=== PATIENT | female | born 1985 | race Caucasian/White ===

== ENCOUNTER 2018-04-12 17:34 | Emergency (ER) | payer OTHER ==
[2018-04-12] MEDS ORDERED: HYDROCODONE/APAP 10/325 TAB ONE (18:43)
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
[2018-04-12 19:45] VITALS: BP 121/84; TEMP 98.5; O2SAT 100
== END 2018-04-12 19:40 | disposition home or self-care (01) ==
LOC: ER 17:34
DX: S60.221A Contusion of right hand, initial encounter (principal); S60.222A Contusion of left hand, initial encounter; V43.52XA Car driver injured in collision with other type car in traffic accident, initial encounter; Y92.410 Unspecified street and highway as the place of occurrence of the external cause; F32.9 Major depressive disorder, single episode, unspecified
CPT/HCPCS: 99285

== ENCOUNTER 2019-01-21 14:55 | Emergency (ER) | payer OTHER ==
[2019-01-21 16:11] LABS: Absolute Lymphocytes (CBC) 2.8 K/uL (0.7-4.9); Absolute Monocytes 0.7 K/uL (0.1-1.3); Absolute Neutrophil 6.7 K/uL (1.8-8.0); Hematocrit 39.3 % (36.0-45.0); MPV 7.8 fL (7.6-11.3); Monocytes % 6.6 % (3.3-12.3); RBC Red Blood Cell Count 4.36 M/uL (3.86-4.86)
[2019-01-21] MEDS ORDERED: MORPHINE 4 MG/ML SYR ONE ×2 (16:14→19:53)
[2019-01-21] MEDS ORDERED: NA CHLORIDE 0.9% 1,000 ML ONE (16:15)
[2019-01-21] MEDS ORDERED: ONDANSETRON 4 MG/2 ML VIAL ONE ×3 (16:15→20:32)
[2019-01-21 16:28] LABS: Albumin 4.2 g/dL (3.4-5.0); Bilirubin Direct 0.1 mg/dL (0-0.2); Bilirubin Total 0.4 mg/dL (0.2-1.0); Potassium 3.7 mmol/L (3.5-5.1); Protein, Total 7.4 g/dL (6.4-8.2)
[2019-01-21 16:29] LABS: Urine Amorphous Sediment 1+ /HPF (NONE SEEN); Urine Bacteria >50 /HPF (<20); Urine Culture Reflex Order ND; Urine Mucus 3+ /HPF (NONE SEEN); Urine RBC <5 /HPF (NONE SEEN)
--- NOTE | 2019-01-21 18:35 | RAD REPORT ---
EXAM DESCRIPTION: CTAbdomen Pelvis W Contrast - 01/21/2019 6:28 pm CLINICAL HISTORY: Abdominal pain. right lower abdomial pain COMPARISON: Abdomen Pelvis W Contrast dated 05/28/2016 TECHNIQUE: Biphasic CT imaging of the abdomen and pelvis was performed with 100 ml non-ionic IV cont rast. All CT scans are performed using dose optimization technique as appropriate and may include automated exposure control or mA/KV adjustment according to patient size. FINDINGS: The lung bases are clear. The liver, spleen, pancreas, adrenal glands and kidneys are within normal limits. No bowel obstruction, free air, free fluid or abscess. The appendix is normal. No evidence of signi ficant lymphadenopathy. No suspicious bony findings. IMPRESSION: No acute intra-abdominal or pelvic finding.
--- NOTE | 2019-01-21 19:58 | RAD REPORT ---
EXAM DESCRIPTION: US - Transvaginal Study Probe - 01/21/2019 7:28 pm CLINICAL HISTORY: right lower abdominal pain Pelvic pain. COMPARISON: No comparisons FINDINGS: The uterus is normal in size, shape and echotexture. The uterus measures 7.6 x 4.8 x 4.5 c m. The endometrial stripe measures 10 mm, normal. Both ovaries are normal in size, shape and echotexture. The right ovary measures 2.5 x 1.9 x 1 7 cm. The left ovary measures 2.6 x 2.2 x 2.0 cm. No ovarian or parovarian lesions. No adnexal masses. Normal Doppler blood flow was demonstrated to both ovaries. No significant pelvic ascites. IMPRESSION: Unremarkable study.
--- NOTE | 2019-01-21 20:08 | ER ---
Nurse's Notes [facility] Name: Kelsi Fortune Age: 33 yrs Sex: Female : 1985 Arrival Date: 01/21/2019 Time: 14:58 Bed 19 Private MD: Diagnosis: Lower abdominal pain, unspecified;Urinary tract infection, site not specified Presentation: 01/21 15:14 Presenting complaint: Patient states: RLQ pain, subjective fever, n/v/d x 1 day. sv Transition of care: patient was not received from another setting of care. Onset of symptoms was January 20, 2019. Care prior to arrival: None. 15:14 Method Of Arrival: Ambulatory sv 15:14 Acuity: CAMERON 3 sv 17:55 Risk Assessment: Do you want to hurt yourself or someone else? Patient reports no ph desire to harm self or others. Initial Sepsis Screen: Does the patient meet any 2 criteria? No. Patient's initial sepsis screen is negative. Does the patient have a suspected source of infection? No. Patient's initial sepsis screen is negative. Triage Assessment: 15:16 General: Appears in no apparent distress. uncomfortable, Behavior is calm, cooperative, sv appropriate for age. Pain: Complains of pain in right lower quadrant Pain currently is 10 out of 10 on a pain scale. Neuro: Level of Consciousness is awake, alert, obeys commands, Oriented to person, place, time, situation, Gait is steady. Respiratory: Respiratory effort is even, unlabored, Respiratory pattern is regular, symmetrical. GI: Reports lower abdominal pain, diarrhea, nausea, vomiting. Historical: - Allergies: 15:15 NKA; sv - PMHx: 15:15 None; sv - PSHx: 15:15 None; sv - Immunization history:: Adult Immunizations unknown. - Social history:: Smoking status: Patient/guardian denies using tobacco. - Ebola Screening: : No symptoms or risks identified at this time. Screenin:55 Abuse screen: Denies threats or abuse. Denies injuries from another. Nutritional ph screening: No deficits noted. Tuberculosis screening: No symptoms or risk factors identified. Fall Risk None identified. Assessment: 15:45 General: Appears in no apparent distress. uncomfortable, slender, well groomed, ph Behavior is calm, cooperative, appropriate for age, Reports fever for 1-2 days. Pain: Complains of pain in right lower quadrant. Neuro: Level of Consciousness is awake, alert, obeys commands, Oriented to person, place, time, situation. Cardiovascular: Capillary refill < 3 seconds in bilateral fingers Patient's skin is warm and dry. Respiratory: Airway is patent Respiratory effort is even, unlabored. GI: Abdomen is flat, non-distended, Bowel sounds present X 4 quads. Abd is soft X 4 quads Abdomen is tender to palpation in right lower quadrant Reports lower abdominal pain, diarrhea, nausea, vomiting. : Denies burning with urination, urinary frequency. Derm: Skin is intact, is fragile, Skin is pink, warm \T\ dry. Musculoskeletal: Circulation, motion, and sensation intact. Range of motion: intact in all extremities. 17:00 Reassessment: Patient appears in no apparent distress at this time. Patient and/or ph family updated on plan of care and expected duration. Pain level reassessed. Patient is alert, oriented x 3, equal unlabored respirations, skin warm/dry/pink. Pt reports that pain has improved to 6/10, awaiting CT scan, SO at bedside. 18:00 Reassessment: Patient appears in no apparent distress at this time. No changes from ph previously documented assessment. Patient and/or family updated on plan of care and expected duration. Pain level reassessed. Patient is alert, oriented x 3, equal unlabored respirations, skin warm/dry/pink. 19:00 Reassessment: Patient appears in no apparent distress at this time. Patient and/or jb4 family updated on plan of care and expected duration. Pain level reassessed. Patient is alert, oriented x 3, equal unlabored respirations, skin warm/dry/pink. 19:13 Reassessment: Pt to ultrasound. jb4 20:00 Reassessment: Patient appears in no apparent distress at this time. Patient and/or jb4 family updated on plan of care and expected duration. Pain level reassessed. Patient is alert, oriented x 3, equal unlabored respirations, skin warm/dry/pink. Vital Signs: 15:15 BP 121 / 82; Pulse 66; Resp 18; Temp 98.5; Pulse Ox 100% ; Weight 56.7 kg; Height 5 ft. sv 3 in. (160.02 cm); Pain 8/10; 16:30 BP 124 / 78; Pulse 78; Resp 18; Pulse Ox 99% on R/A; ph 17:54 BP 102 / 78; Pulse 84; Resp 18; Pulse Ox 98% on R/A; ph 19:00 BP 108 / 83; Pulse 59; Resp 16; Pulse Ox 97% on R/A; jb4 20:00 BP 106 / 78; Pulse 64; Resp 16; Pulse Ox 97% on R/A; jb4 15:15 Body Mass Index 22.14 (56.70 kg, 160.02 cm) sv ED Course: 14:58 Patient arrived in ED. mr 15:14 Triage completed. sv 15:16 Arm band placed on. sv 15:19 Keila Simmons, RN is Primary Nurse. ph 15:41 Isaias Crisostomo PA is PHCP. [facility] 15:41 Kishan Mack MD is Attending Physician. [facility] 15:58 Initial lab(s) drawn, by tx, sent to lab. Inserted saline lock: 20 gauge in right dh3 antecubital area, using aseptic technique. Blood collected. 17:56 Patient has correct armband on for positive identification. Placed in gown. Bed in low ph position. Call light in reach. Side rails up X 1. Pulse ox on. NIBP on. Door closed. Noise minimized. Warm blanket given. 18:[address] via wheelchair. nj 18:28 CT completed. Patient tolerated procedure well. Patient moved back from HI. nj 18:28 CT Abd/Pelvis - W/Contrast In Process Unspecified. EDMS 19:29 Transvaginal Study Probe In Process Unspecified. EDMS 20:34 No provider procedures requiring assistance completed. IV discontinued, intact, jb4 bleeding controlled. Administered Medications: 16:05 Drug: morphine 4 mg Route: IVP; Site: right antecubital; ph 18:58 Follow up: Response: No adverse reaction; Pain is decreased ph 16:05 Drug: NS 0.9% 1000 ml Route: IV; Rate: 1 bolus; Site: right antecubital; ph 18:59 Follow up: Response: No adverse reaction; IV Status: Completed infusion ph 16:39 Drug: Zofran 4 mg Route: IVP; Site: right antecubital; ph 18:59 Follow up: Response: No adverse reaction; Nausea is decreased ph 19:36 Drug: Zofran 4 mg Route: IVP; Site: right antecubital; jb4 20:30 Follow up: Response: No adverse reaction; Nausea is decreased jb4 19:38 Drug: morphine 4 mg Route: IVP; Site: right antecubital; jb4 20:31 Follow up: Response: No adverse reaction; Pain is decreased jb4 Outcome: 20:08 Discharge ordered by MD. zheng 20:34 Discharged to home ambulatory, with significant other. jb4 20:34 Condition: stable 20:34 Discharge instructions given to patient, Instructed on discharge instructions, follow up and referral plans. medication usage, Demonstrated understanding of instructions, follow-up care, medications, Prescriptions given X 3. 20:34 Patient left the ED. jb4 Signatures: Dispatcher [employer] EDLeonora Napoles, RN RN Isaias Medellin PA PA jmm Rivera, Jayshree mr SimmonsKeila RN RN ph Bryson, James, RN RN jb Panda Cho Deanna [facility] Corrections: (The following items were deleted from the chart) 15:17 15:15 Resp 18bpm; Pulse Ox 100%; Temp 98.5F; 56.7 kg; Height 5 ft. 3 in.; BMI: 22.1; sv Pain 8/10; sv
--- NOTE | 2019-01-21 20:08 | EDPHYS ---
Physician Documentation [facility] Name: Kelsi Fortune Age: 33 yrs Sex: Female : 1985 Arrival Date: 01/21/2019 Time: 14:58 Bed 19 Private MD: ED Physician Kishan Mack HPI: 01/21 15:46 This 33 yrs old Female presents to ER via Ambulatory with complaints of jmm Abdominal Pain, Nausea. 15:46 The patient presents with abdominal pain in the lower abdomen, right lower quadrant. jmm Onset: The symptoms/episode began/occurred gradually, 2 day(s) ago. The symptoms do not radiate. Associated signs and symptoms: Pertinent positives: nausea and vomiting, Pertinent negatives: diarrhea. This is a 33 year old female with no chronic medical conditions that presents to the ED with complaints of right lower abdominal pain beginning 2 days ago worsening last night with multiple episodes of vomiting. . Historical: - Allergies: 15:15 NKA; sv - PMHx: 15:15 None; sv - PSHx: 15:15 None; sv - Immunization history:: Adult Immunizations unknown. - Social history:: Smoking status: Patient/guardian denies using tobacco. - Ebola Screening: : No symptoms or risks identified at this time. ROS: 15:46 Cardiovascular: Negative for chest pain, palpitations, and edema, Respiratory: Negative jmm for shortness of breath, cough, wheezing, and pleuritic chest pain. 15:46 Constitutional: Positive for body aches, fever. 15:46 Abdomen/GI: Positive for abdominal pain, nausea and vomiting, Negative for diarrhea. 15:46 All other systems are negative. Exam: 15:46 Constitutional: This is a well developed, well nourished patient who is awake, alert, jmm and in no acute distress. Head/Face: atraumatic. Eyes: EOMI, no conjunctival erythema appreciated ENT: Moist Mucus Membranes Neck: Trachea midline, Supple Chest/axilla: Normal chest wall appearance and motion. Cardiovascular: Regular rate and rhythm. No edema appreciated Respiratory: Normal respirations, no respiratory distress appreciated 15:46 Back: Normal ROM Skin: General appearance color normal MS/ Extremity: Moves all extremities, no obvious deformities appreciated, no edema noted to the lower extremities Neuro: Awake and alert, normal gait Psych: Behavior is normal, Mood is normal, Patient is cooperative and pleasant 15:46 Abdomen/GI: Inspection: abdomen appears normal, Bowel sounds: normal, Palpation: soft, moderate abdominal tenderness, in the right lower quadrant. Vital Signs: 15:15 BP 121 / 82; Pulse 66; Resp 18; Temp 98.5; Pulse Ox 100% ; Weight 56.7 kg; Height 5 ft. sv 3 in. (160.02 cm); Pain 8/10; 16:30 BP 124 / 78; Pulse 78; Resp 18; Pulse Ox 99% on R/A; ph 17:54 BP 102 / 78; Pulse 84; Resp 18; Pulse Ox 98% on R/A; ph 19:00 BP 108 / 83; Pulse 59; Resp 16; Pulse Ox 97% on R/A; jb4 20:00 BP 106 / 78; Pulse 64; Resp 16; Pulse Ox 97% on R/A; jb4 15:15 Body Mass Index 22.14 (56.70 kg, 160.02 cm) sv MDM: 15:46 Patient medically screened. [facility] 20:07 Data reviewed: vital signs, nurses notes. Counseling: I had a detailed discussion with norm the patient and/or guardian regarding: the historical points, exam findings, and any diagnostic results supporting the discharge/admit diagnosis, lab results, radiology results, the need for outpatient follow up, to return to the emergency department if symptoms worsen or persist or if there are any questions or concerns that arise at home. ED course: Patient's symptoms alleviated in the ED. Patient will be prescribed antibiotics for UTD. patient is given early appendicitis return precautions. patient understood and agrees with the plan of care. . 01/21 15:30 Order name: Urine Microscopic Only; Complete Time: 16:31 ph 01/21 15:47 Order name: Basic Metabolic Panel; Complete Time: 16:31 [facility] 01/21 15:47 Order name: CBC with Diff; Complete Time: 16:31 [facility] 01/21 15:47 Order name: Creatinine for Radiology; Complete Time: 16:31 [facility] 01/21 15:47 Order name: Hepatic Function; Complete Time: 16:31 [facility] 01/21 15:47 Order name: Lipase; Complete Time: 16:31 [facility] 01/21 15:47 Order name: CT Abd/Pelvis - W/Contrast; Complete Time: 18:46 [facility] 01/21 15:56 Order name: Urine Dipstick--Ancillary (enter results); Complete Time: 20:22 bd 01/21 15:56 Order name: Urine --Ancillary (enter results); Complete Time: 20:22 bd 01/21 18:56 Order name: Transvaginal Study Probe; Complete Time: 20:01 EDMS 01/21 15:30 Order name: Urine Test (obtain specimen); Complete Time: 15:30 ph 01/21 15:30 Order name: Urine Dipstick-Ancillary (obtain specimen); Complete Time: 15:30 ph 01/21 15:47 Order name: IV Saline Lock; Complete Time: 16:02 [facility] 01/21 15:47 Order name: Labs collected and sent; Complete Time: 16:02 [facility] Administered Medications: 16:05 Drug: morphine 4 mg Route: IVP; Site: right antecubital; ph 18:58 Follow up: Response: No adverse reaction; Pain is decreased ph 16:05 Drug: NS 0.9% 1000 ml Route: IV; Rate: 1 bolus; Site: right antecubital; ph 18:59 Follow up: Response: No adverse reaction; IV Status: Completed infusion ph 16:39 Drug: Zofran 4 mg Route: IVP; Site: right antecubital; ph 18:59 Follow up: Response: No adverse reaction; Nausea is decreased ph 19:36 Drug: Zofran 4 mg Route: IVP; Site: right antecubital; jb4 20:30 Follow up: Response: No adverse reaction; Nausea is decreased jb4 19:38 Drug: morphine 4 mg Route: IVP; Site: right antecubital; jb4 20:31 Follow up: Response: No adverse reaction; Pain is decreased jb4 Disposition: 01/21/19 20:08 Discharged to Home. Impression: Lower abdominal pain, unspecified, Urinary tract infection, site not specified. - Condition is Stable. - Discharge Instructions: Abdominal Pain, Adult, Urinary Tract Infection, Adult. - Prescriptions for Bactrim DS 800- 160 mg Oral Tablet - take 1 tablet by ORAL route every 12 hours for 10 days; 20 tablet. Ultracet 37.5- 325 mg Oral Tablet - take 1 tablet by ORAL route every 6 hours - for up to 5 days; do not exceed 8 tablets per day.; 12 tablet. Zofran 4 mg Oral Tablet - take 1 tablet by ORAL route every 12 hours As needed; 20 tablet. - Medication Reconciliation Form, Thank You Letter, Antibiotic Education, Prescription Opioid Use form. - Follow up: Private Physician; When: 2 - 3 days; Reason: Recheck today's complaints, Continuance of care, Re-evaluation by your physician. Signatures: Dispatcher [employer] [facility] Leonora Mullins, RN RN Isaias Medellin PA PA jmm Hall, Patricia, RN RN Saman Amaya RN RN jb4 Corrections: (The following items were deleted from the chart) 18:56 18:51 Pelvis Complete+US.RAD.BRZ ordered. [facility] 20:34 20:08 01/21/2019 20:08 Discharged to Home. Impression: Lower abdominal pain, jb4 unspecified; Urinary tract infection, site not specified. Condition is Stable. Forms are Medication Reconciliation Form, Thank You Letter, Antibiotic Education, Prescription Opioid Use. Follow up: Private Physician; When: 2 - 3 days; Reason: Recheck today's complaints, Continuance of care, Re-evaluation by your physician. norm
[2019-01-21 20:17] LABS: Urine Blood 1+ (NEG); Urine Glucose NEGATIVE (NEG); Urine Protein TRACE (NEG); Urine Specific Gravity >1.030 (1.005-1.030); Urine pH 5.5 (5.0-7.0)
[2019-01-21] MEDS ORDERED: DICYCLOMINE HCL 10 MG CAP ONE (20:32)
[2019-01-21 20:58] VITALS: TEMP 98.5
[2019-01-21 21:01] VITALS: O2SAT 97
[2019-01-21 21:03] VITALS: BP 106/78
== END 2019-01-21 20:34 | disposition home or self-care (01) ==
LOC: ER 14:55
DX: N39.0 Urinary tract infection, site not specified (principal)
CPT/HCPCS: 36415; 74177; 76830; 80048; 80076; 81003; 81015; 81025; 83690; 85025; 96361; 96374; 96375; 99284; J2405; J7030; Q9967

== ENCOUNTER 2019-06-02 19:10 | Emergency (ER) | payer OTHER ==
--- OUTSIDE RECORDS SUMMARY | 2019-06-02 19:12 | XMS REPORT ---
:1985 [facility] Address [address] [place] [id number] Care Team Providers Name Role Phone Unavailable Unavailable Unavailable Problems This patient has no known problems. Allergies, Adverse Reactions, Alerts This patient has no known allergies or adverse reactions. Medications This patient has no known medications.
--- OUTSIDE RECORDS SUMMARY | 2019-06-02 19:12 | XMS REPORT ---
:1985 Author Organization [employer] Care Team Providers Name Role Phone Smart, [facility] Provider Role Unavailable Allergies, Adverse Reactions, Alerts Substance Reaction Event Type Zoloft Info Not Available Drug Allergy Problems Problem Type Condition Code Onset Dates Condition Status Assessment Constipation, unspecified K59.00 Active constipation type Assessment GERD without esophagitis K21.9 Active Problem GERD without esophagitis K21.9 Active Problem Constipation, unspecified K59.00 Active constipation type Problem Tobacco use disorder F17.200 Active Assessment Adult BMI 25.0-25.9 kg/sq m Z68.25 Active Assessment Tobacco use disorder F17.200 Active Assessment Well adult on routine health check Z00.00 Active Medications Medication Code System Code Instructions Start Date End Date Status Dosage Omeprazole [facility] [address] 20 MG Orally Active 1 tablet -01 Twice a day Results No Known Results Summary Purpose [employer] Submission
[2019-06-02 19:57] LABS: Absolute Lymphocytes (CBC) 3.3 K/uL (0.7-4.9); Basophils % 1.3 % (0-1.3); Hematocrit 39.4 % (36.0-45.0); Lymphocytes % 33.2 % (15.3-44.8); MPV 7.8 fL (7.6-11.3)
[2019-06-02 20:11] LABS: ALT/SGPT 31 U/L (12-78); AST/SGOT 14 U/L (15-37); Alkaline Phosphatase 70 U/L (45-117); BUN Blood Urea Nitrogen 12 mg/dL (7-18); Bicarbonate 23 mmol/L (21-32); Bilirubin Direct < 0.1 mg/dL (0-0.2); Bilirubin Total 0.2 mg/dL (0.2-1.0); Glucose Level 89 mg/dL (74-106); Potassium 3.8 mmol/L (3.5-5.1); Protein, Total 7.4 g/dL (6.4-8.2); Sodium Level 142 mmol/L (136-145)
[2019-06-02 20:12] LABS: Lipase 157 U/L (73-393); Troponin (Emerg Dept Use Only) < 0.02 ng/mL (0.0-0.045)
--- NOTE | 2019-06-02 20:46 | RAD REPORT ---
EXAM DESCRIPTION: RAD - Chest Single View - 06/02/2019 8:28 pm CLINICAL HISTORY: Chest pain COMPARISON: October 2017 TECHNIQUE: AP portable chest image was obtained 1952 hours . FINDINGS: Lungs are clear. Heart and vasculature are normal. No measurable pleural effusion and no p neumothorax. No acute bony abnormality seen. No acute aortic findings suspected. IMPRESSION: No acute cardiopulmonary process. No significant interval change.
--- NOTE | 2019-06-02 21:44 | ER ---
Nurse's Notes [facility] Name: Kelsi Fortune Age: 34 yrs Sex: Female : 1985 Arrival Date: 06/02/2019 Time: 19:16 Bed 25 Private MD: Edita Smart Diagnosis: Chest pain, unspecified Presentation: 06/02 19:25 Presenting complaint: Patient states: "Since a couple of days I've been having a cc3 central chest pain radiating to my left arm that makes it feel numb; I've been having right upper quadrant abdominal pain as well and headache since 2 days". Transition of care: patient was not received from another setting of care. Onset of symptoms was May 31, 2019. Risk Assessment: Do you want to hurt yourself or someone else? Patient reports no desire to harm self or others. Initial Sepsis Screen: Does the patient meet any 2 criteria? No. Patient's initial sepsis screen is negative. Does the patient have a suspected source of infection? No. Patient's initial sepsis screen is negative. Care prior to arrival: None. 19:25 Method Of Arrival: Ambulatory cc3 19:25 Acuity: CAMERON 3 cc3 Triage Assessment: 19:25 General: Appears in no apparent distress. uncomfortable, Behavior is calm, cooperative, cc3 appropriate for age. Pain: Complains of pain in central chest, RUQ abdomen, headache Pain radiates to left arm. EENT: No signs and/or symptoms were reported regarding the EENT system. Neuro: Level of Consciousness is awake, alert, obeys commands, Oriented to person, place, time, situation, Appropriate for age. Cardiovascular: Reports chest pain, since a couple of days. Respiratory: Airway is patent Respiratory effort is even, unlabored, Respiratory pattern is regular, symmetrical. GI: Abdomen is round non-distended. : No signs and/or symptoms were reported regarding the genitourinary system. Derm: Skin is intact, is healthy with good turgor, Skin is pink, warm \\T\\ dry. normal. Musculoskeletal: Circulation, motion, and sensation intact. Range of motion: intact in all extremities. 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 - Social history:: Smoking status: Patient uses tobacco products, smokes one pack cigarettes per day. - Ebola Screening: : No symptoms or risks identified at this time. Screenin:25 Abuse screen: Denies threats or abuse. Denies injuries from another. Nutritional cc3 screening: No deficits noted. Tuberculosis screening: No symptoms or risk factors identified. Fall Risk Ambulatory Aid- None/Bed Rest/Nurse Assist (0 pts). Gait- Normal/Bed Rest/Wheelchair (0 pts) Mental Status- Oriented to own ability (0 pts). Assessment: 19:25 Pain: Pain began 2-3 days ago. cc3 20:30 Reassessment: Patient appears in no apparent distress at this time. Patient and/or cc3 family updated on plan of care and expected duration. Pain level reassessed. Patient is alert, oriented x 3, equal unlabored respirations, skin warm/dry/pink. 21:42 Reassessment: Patient appears in no apparent distress at this time. Patient and/or cc3 family updated on plan of care and expected duration. Pain level reassessed. Patient is alert, oriented x 3, equal unlabored respirations, skin warm/dry/pink. CRYSTAL Rodgers at bedside explaining to patient his plan of care. 22:05 Reassessment: Patient appears in no apparent distress at this time. Patient and/or cc3 family updated on plan of care and expected duration. Pain level reassessed. Patient is alert, oriented x 3, equal unlabored respirations, skin warm/dry/pink. CRYSTAL Rodgers discharged the patient home, no prescription given. IV cannula removed and patient left ER vitally stable and ambulatory with her . No valuables left in the patient's room. Patient denies pain at this time. Patient states feeling better. Patient states symptoms have improved. Vital Signs: 19:25 BP 139 / 95; Pulse 97; Resp 20 S; Temp 98.2(O); Pulse Ox 100% on R/A; Weight 63.5 kg cc3 (R); Height 5 ft. 3 in. (160.02 cm) (R); 20:15 BP 119 / 89; Pulse 81; Resp 16 S; Pulse Ox 100% on R/A; cc3 21:20 BP 113 / 78; Pulse 71; Resp 16 S; Pulse Ox 100% on R/A; cc3 22:00 BP 115 / 72; Pulse 75; Resp 17 S; Pulse Ox 100% on R/A; cc3 19:25 Body Mass Index 24.80 (63.50 kg, 160.02 cm) cc3 ED Course: 19:16 Patient arrived in ED. cl3 19:17 Edita Smart MD is Private Physician. cl3 19:25 Patient has correct armband on for positive identification. classroom monitor on. Pulse cc3 ox on. NIBP on. 19:25 Arm band placed on right wrist. EKG completed in triage. Results shown to MD. cc3 19:25 Patient maintains SpO2 saturation greater than 95% on room air. cc3 19:26 Jasper Rodgers NP is PHCP. pm1 19:26 Kishan Mack MD is Attending Physician. pm1 19:32 Meme Hinojosa is Primary Nurse. cc3 19:37 Triage completed. cc3 19:45 Initial lab(s) drawn, by me, sent to lab. EKG done, by ED staff, reviewed by Jasper Rodgers EXPLOSIVES OPERATOR. Inserted saline lock: 22 gauge in left antecubital area, using aseptic technique. Blood collected. 19:51 Placed in gown. Bed in low position. Call light in reach. Side rails up X 1. Side rails jp3 up X2. Warm blanket given. Pillow given. Verbal reassurance given. 20:10 Urine collected: clean catch specimen, clear, alonzo colored. jp3 20:10 XRAY Chest (1 view) Sent. jp3 20:10 LFT's Sent. jp3 20:11 CBC with Diff Sent. jp3 20:11 Basic Metabolic Panel Sent. jp3 20:31 XRAY Chest (1 view) In Process Unspecified. EDMS 22:05 No provider procedures requiring assistance completed. IV discontinued, intact, cc3 bleeding controlled, No redness/swelling at site. Pressure dressing applied. Administered Medications: 21:50 Drug: GI Cocktail without - (Maalox Suspension 30 ml, Lidocaine Liquid 2 % 15 cc3 ml) Route: PO; 22:05 Follow up: Response: No adverse reaction; Pain is decreased cc3 Outcome: 21:43 Discharge ordered by MD. pm1 22:05 Discharged to home ambulatory, with family. cc3 22:05 Condition: stable 22:05 Discharge instructions given to patient, Instructed on discharge instructions, follow up and referral plans. Demonstrated understanding of instructions, follow-up care. 22:07 Patient left the ED. cc3 Signatures: Dispatcher [employer] EDMS Jasper Rodgers, EXPLOSIVES OPERATOR EXPLOSIVES OPERATOR pm1 Erick Espinosa jp3 Meme Hinojosa cc3 Manuela Garcia cl3 Corrections: (The following items were deleted from the chart) 06/03 01:31 08 22:05 Reassessment: Patient appears in no apparent distress at this time. Patient cc3 and/or family updated on plan of care and expected duration. Pain level reassessed. Patient is alert, oriented x 3, equal unlabored respirations, skin warm/dry/pink. CRYSTAL Rodgers discharged the patient home, no prescription given. IV cannula removed and patient left ER vitally stable and ambulatory with her . Patient denies pain at this time. Patient states feeling better. Patient states symptoms have improved. cc3
--- NOTE | 2019-06-02 21:44 | EDPHYS ---
Physician Documentation [facility] Name: Kelsi Fortune Age: 34 yrs Sex: Female : 1985 Arrival Date: 06/02/2019 Time: 19:16 Bed 25 Private MD: Edita Smart ED Physician Kishan Mack HPI: 06/02 21:52 This 34 yrs old Female presents to ER via Ambulatory with complaints of Chest pm1 Pain. 21:52 The patient or guardian reports chest pain that is located primarily in the mid-sternal pm1 area. The pain does not radiate. Associated signs and symptoms: Pertinent positives: epigastric pain, Pertinent negatives: headache, nausea, shortness of breath, vomiting. The chest pain is described as burning. Duration: The patient or guardian reports a single episode, that is still ongoing, and unchanged. Modifying factors: The symptoms are alleviated by nothing. the symptoms are aggravated by deep breath. Severity of pain: in the emergency department the pain is actually worse. The patient has experienced similar episodes in the past, several times. GI doctor 3 weeks ago and told that she has gastritis and esophagitis. Recently started on Linzess. 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 - Social history:: Smoking status: Patient uses tobacco products, smokes one pack cigarettes per day. - Ebola Screening: : No symptoms or risks identified at this time. ROS: 21:52 Constitutional: Negative for fever, chills, and weight loss, Eyes: Negative for injury, pm1 pain, redness, and discharge, ENT: Negative for injury, pain, and discharge, Neck: Negative for injury, pain, and swelling. 21:52 Respiratory: Negative for shortness of breath, cough, wheezing, and pleuritic chest pain. 21:52 Back: Negative for injury and pain, : Negative for injury, bleeding, discharge, and swelling, MS/Extremity: Negative for injury and deformity, Skin: Negative for injury, rash, and discoloration, Neuro: Negative for headache, weakness, numbness, tingling, and seizure. 21:52 Cardiovascular: Positive for chest pain, Negative for edema, orthopnea, palpitations. 21:52 Abdomen/GI: Positive for abdominal pain, of the epigastric area, Negative for nausea, vomiting, and diarrhea, constipation. Exam: 21:52 Constitutional: This is a well developed, well nourished patient who is awake, alert, pm1 and in no acute distress. Head/Face: Normocephalic, atraumatic. Neck: Trachea midline, no thyromegaly or masses palpated, and no cervical lymphadenopathy. Supple, full range of motion without nuchal rigidity, or vertebral point tenderness. No Meningismus. Cardiovascular: Regular rate and rhythm with a normal S1 and S2. No gallops, murmurs, or rubs. Normal PMI, no JVD. No pulse deficits. 21:52 Respiratory: Lungs have equal breath sounds bilaterally, clear to auscultation and percussion. No rales, rhonchi or wheezes noted. No increased work of breathing, no retractions or nasal flaring. 21:52 Back: No spinal tenderness. No costovertebral tenderness. Full range of motion. Skin: Warm, dry with normal turgor. Normal color with no rashes, no lesions, and no evidence of cellulitis. MS/ Extremity: Pulses equal, no cyanosis. Neurovascular intact. Full, normal range of motion. 21:52 Chest/axilla: Inspection: normal, Palpation: tenderness, of the mid-sternal area, that partially reproduces the patient's complaints. 21:52 Abdomen/GI: Inspection: abdomen appears normal, Bowel sounds: normal, Palpation: abdomen is soft and non-tender, in all quadrants, mass, is not appreciated, rebound tenderness, is not appreciated. 21:52 Neuro: Orientation: is normal, Motor: is normal, moves all fours. Vital Signs: 19:25 BP 139 / 95; Pulse 97; Resp 20 S; Temp 98.2(O); Pulse Ox 100% on R/A; Weight 63.5 kg cc3 (R); Height 5 ft. 3 in. (160.02 cm) (R); 20:15 BP 119 / 89; Pulse 81; Resp 16 S; Pulse Ox 100% on R/A; cc3 21:20 BP 113 / 78; Pulse 71; Resp 16 S; Pulse Ox 100% on R/A; cc3 22:00 BP 115 / 72; Pulse 75; Resp 17 S; Pulse Ox 100% on R/A; cc3 19:25 Body Mass Index 24.80 (63.50 kg, 160.02 cm) cc3 MDM: 19:27 Patient medically screened. pm1 21:40 Data reviewed: vital signs. 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 21:52 ED course: chest pain resolved with GI cocktail. pm1 06/02 19:31 Order name: Basic Metabolic Panel pm1 06/02 19:31 Order name: CBC with Diff pm1 06/02 19:31 Order name: LFT's pm1 06/02 19:31 Order name: Troponin (emerg Dept Use Only); Complete Time: 20:21 pm1 06/02 19:31 Order name: Lipase; Complete Time: 20:21 pm1 06/02 19:35 Order name: Basic Metabolic Panel; Complete Time: 20:21 EDMS 06/02 19:31 Order name: XRAY Chest (1 view); Complete Time: 20:56 pm1 06/02 19:31 Order name: EKG; Complete Time: 19:35 pm1 06/02 19:31 Order name: Cardiac monitoring; Complete Time: 19:39 pm1 06/02 19:31 Order name: EKG - Nurse/Tech; Complete Time: 19:39 pm1 06/02 19:31 Order name: IV Saline Lock; Complete Time: 20:10 pm1 06/02 19:35 Order name: CBC with Automated Diff; Complete Time: 20:21 EDMS 06/02 19:35 Order name: Liver (Hepatic) Function; Complete Time: 20:21 EDMS 06/02 19:31 Order name: Labs collected and sent; Complete Time: 20:10 pm1 06/02 19:31 Order name: O2 Per Protocol; Complete Time: 19:39 pm1 06/02 19:31 Order name: O2 Sat Monitoring; Complete Time: 19:39 pm1 Administered Medications: 21:50 Drug: GI Cocktail without - (Maalox Suspension 30 ml, Lidocaine Liquid 2 % 15 cc3 ml) Route: PO; 22:05 Follow up: Response: No adverse reaction; Pain is decreased cc3 Disposition: 06/02/19 21:43 Discharged to Home. Impression: Chest pain, unspecified. - Condition is Stable. - Discharge Instructions: Nonspecific Chest Pain. - Medication Reconciliation Form, Thank You Letter, Antibiotic Education, Prescription Opioid Use form. - Follow up: Emergency Department; When: As needed; Reason: Worsening of condition. Follow up: Private Physician; When: 2 - 3 days; Reason: Recheck today's complaints, Continuance of care, Re-evaluation by your physician. - Problem is new. - Symptoms have improved. Addendum: 06/05/2019 03:23 Co-signature as Attending Physician, Kishan Mack MD. g s Signatures: Dispatcher [employer] EDMS Jasper Rodgers, CASH ACCOUNTING CLERK CASH ACCOUNTING CLERK pm1 Kishan Mack MD MD Meme Hinojosa cc3 Corrections: (The following items were deleted from the chart) 06/02 22:07 21:43 06/02/2019 21:43 Discharged to Home. Impression: Chest pain, unspecified. cc3 Condition is Stable. Forms are Medication Reconciliation Form, Thank You Letter, Antibiotic Education, Prescription Opioid Use. Follow up: Emergency Department; When: As needed; Reason: Worsening of condition. Follow up: Private Physician; When: 2 - 3 days; Reason: Recheck today's complaints, Continuance of care, Re-evaluation by your physician. Problem is new. Symptoms have improved. pm1
[2019-06-02] MEDS ORDERED: LIDOCAINE VISCOUS 2% SOLN 15 ML UDC ONE (21:50)
[2019-06-02] MEDS ORDERED: MAGNE/ALUM HYDROXD 30 ML UCUP ONE (21:50)
[2019-06-02 22:18] VITALS: TEMP 98.2; O2SAT 100
[2019-06-02 22:21] VITALS: BP 113/78
--- NOTE | 2019-06-03 07:36 | EKG ---
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
== END 2019-06-02 22:07 | disposition home or self-care (01) ==
LOC: ER 19:10
DX: R07.9 Chest pain, unspecified (principal); R10.13 Epigastric pain; F17.210 Nicotine dependence, cigarettes, uncomplicated
CPT/HCPCS: 36415; 71045; 80048; 80076; 83690; 84484; 85025; 93005; 99285

== ENCOUNTER 2022-03-20 16:09 | Inpatient (IN) | payer OTHER ==
--- OUTSIDE RECORDS SUMMARY | 2022-03-20 16:17 | XMS REPORT | Continuity of Care Document ---
:1985 Author Organization [facility] t Address [facility] [place] [address] Care Team Providers Name Role Phone Mina Smart Primary Care Physician Mina Smart Attending Clinician Unavailable DICLEMENTE Attending Clinician Unavailable DICLEMENTE Attending Clinician Unavailable Singer DIMAS Attending Clinician Sydni Varela Attending Clinician Doctor Unassigned, Name Attending Clinician Unavailable Brian Guillen DO Attending Clinician Steve Monae DO Attending Clinician Sergio FRANKLIN Attending Clinician Mary ANDERSEN Attending Clinician Unavailable Izabela Bedoya Attending Clinician Carmine FRANKLIN L Attending Clinician Cait FRANKLIN Attending Clinician Brent PASTRANA Attending Clinician Pob, Lab Main Attending Clinician Unavailable Nurse, Women's Health Attending Clinician Unavailable DICLEMENTE Admitting Clinician Unavailable Cait FRANKLIN Admitting Clinician Payers Payer Name Policy Type Policy Number Effective Date Expiration Date Caleb morgan [facility] [id number] 2016 CHOICE MEDICAID 00:00:00 Problems Condition Condition Condition Status Onset Resolution Last Treating Co mments Source Name Details Category Date Date Treatment Clinician Date Status Status Disease Active Univers post post 3-27 ity of laparosc[place] 00 Medical hysterecto hysterecto Br anch my my Obesity Obesity Disease Active Univers (BMI (BMI 3-13 ity of 30-39.9) 30-39.9) 00:00: [place] 00 Medical Branch BV BV Disease Active Univers (bacterial (bacterial 6-26 it y of vaginosis) vaginosis) [place] Cervical Cervical Disease Active Overview: Un [place]ay[place] high risk high risk 6-26 Formattin i ty of human human 00:00: g of this [place] papillomav papillomav 00 note Me dical irus (HPV) irus (HPV) might be Branch DNA test DNA test different positive positive from the original. 04/10/ - pap smear was normal but HPV 6 was positive. Started on DepoProve ra March 2019. Abdominal Abdominal Disease Active Overview: Univers pain, pain, 6-19 Formattin ity of generalize generalize 00:00: g of this [place] d d 00 note Medical might be Branch different from the original. Patient followed by GI in [place] Menorrhagi Menorrhagi Disease Active U nivers a with a with 6-19 ity of regular regular 00:00: [place] cycle cycle 00 Medical Branch Dysmenorrh Dysmenorrh Disease Active U nivers ea ea 6-19 ity of 00:00: [place] 00 Medical Branch Menorrhagi Menorrhagi Disease Active Overview : Univers a with a with 6-19 Formattin ity of regular regular 00:00: g of this [place] cycle cycle 00 note Medical might be Branch different from the original. March 2019 - DepoProve ra started. 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 01/03/2020 - s/p TLH and b/l salpingec lorraine. Pathology benign with no pathology seen. Allergies, Adverse Reactions, Alerts Allergy Allergy Status Severity Reaction(s) Onset Inactive Treating Comm ents Source Name Type Date Date Clinician Sertrali Drug Active Unknown - Seizures Uni vers ne Allergy See comments 3- ity of 00:00: [address] SERTRALI DRUG Active High Unknown-Cmnt 2019- Un [place] NE INGREDI 3-13 ity of 00:00: [address] NO KNOWN Drug Active Univers ALLERGIE Class ity of S [facility] Zoloft Adverse Active Info Not Common Reaction [facility] Social History Social Habit Start Date Stop Date Quantity Comments Source History of Cigarette Smoker Universi ty of tobacco use [facility] Exposure to Not sure [place] of SARS-CoV-2 [facility] (event) Printer Alcohol intake 2021-08-04 2021-08-04 Ex-drinker University 00:00:00 00:00:00 (finding) [facility] Tobacco Comment 2019-12-31 2019-12-3110/24 ppd Universit y of 00:00:00 00:00:00 [facility] Tobacco use and 2019-04-10 2019-04-10 Never used Universit y of exposure 00:00:00 00:00:00 [facility] Sex [birth year] Universit y of 00:00:00 00:00:00 [facility] Smoking Status Start Date Stop Date Source Current every day smoker 2019-04-10 00:00:00 Uni versity of [facility] Medications Ordered Filled Start Stop Current Ordering Indication Dosage Frequency Signature Comments Components Source Medication Medication Date Date Medication? Clinician (SIG) Name Name piperacilli 2020-10- No 3.375g 3.375 g, Univers n-tazobacta 08-04 IV ity of m (ZOSYN) 18:15: 18:10 [place] 3.375 g in 00 :00 ONCE, 1 Medica l NaCl 0.9% dose, On Branch (NS) 100 mL Wed MINI-BAG 08/04/21 at 1315, Administer over 30 Minutes, 100 mL
Reas on for Anti-Infec tive: Empiric Therapy for Suspected Infection< br>Empiric Therapy Site: Abdominal< br>Duratio n of therapy: 72 hours ondansetron 2020-10 No 4mg 4 mg, Slow Univers (ZOFRAN 0-13 10-13 IV Push, ity of (PF)) 17:30: 16:38 ONCE, 1 [place] injection 4 00 :00 dose, On Medi gabriel mg Mon08/04/21 at 1230, Routine iopamidol 2020-10- No [id number] 120mL 120 mL, Univers (ISOVUE 0-13 10-13 Intravenou ity o f 370-500 mL) 16:48: 16:48 s, ONCE, 1 [place] injection 00 :00 dose, On Medica l 120 mL Mon08/04/21 at 1200, Routine NaCl 0.9% 2020-10 No 1000mL at 999 Uni vers (NS) bolus 0-13 10-13 mL/hr, ity of infusion 16:30: 18:30 1,000 mL, Jose as 1,000 mL 00 :00 IV Medical Infusion, Branch ONCE, 1 dose, On Mon08/04/21 at 1130, STAT morpHINE 2020-10 Yes 4mg 4 mg, Slow Uni vers injection 4 0-13 IV Push, ity of mg 16:26: Q4HPRN, [place] 36 Starting Medical on Mon08/04/21 at 1126, Until Discontinu ed, Routine, Pain (scale 7-10) ondansetron 2020-10 Yes [id number] 4mg Take 1 Univers 4 mg 0-13 tablet by ity of disintegrat 00:00: mouth [place] ing tablet 00 every 8 Medica l (eight) Branch hours as needed for Nausea and Vomiting (N/V). ibuprofen 2020- No 600mg 600 mg, Uni vers (IBU) 05-20 07-30 Oral, ity of tablet 600 22:00: 09:59 ONCE, 1 [place] mg 00 :00 dose, Catherine Medical 05/20/21 at Branch 1700, [place] ibuprofen Yes [id number] 600mg Take 1 Univers 600 mg 05-20 9107 tablet by ity of tablet 00:00: mouth [place] 00 every 6 Medical (six) Branch hours as needed for Pain (scale 4-6). acetaminoph Yes [id number] 1{tbl} Take 1 Un [place] en-codeine 7-29 tablet by ity of 300-30 mg 00:00: mouth [place] tablet 00 every 4 Medical (four) Branch hours as needed for Pain (scale 4-6). Indication s: acute pain ibuprofen Yes [id number] 600mg Take 1 Univers 600 mg 7-29 9107 tablet by ity of tablet 00:00: mouth [place] 00 every 6 Medical (six) Branch hours as needed for Pain (scale 4-6). acetaminoph Yes [id number] 1{tbl} Take 1 Un [place] en-codeine 7-29 tablet by ity of 300-30 mg 00:00: mouth [place] tablet 00 every 4 Medical (four) Branch hours as needed for Pain (scale 4-6). Indication s: acute pain acetaminoph 2020- No 650mg 650 mg, U nivers en 01-21 Oral, ity of (TYLENOL) 22:30: 21:29 ONCE, 1 [place] tablet 650 00 :00 dose, Catherine Medi gabriel mg 01/21/21 at Branch 1730, [place] metoclopram 2020- No 10mg 10 mg, Uni vers rene HCl 01-21 Slow IV ity of (REGLAN) 21:45: 20:53 Push, [place] injection 00 :00 ONCE, 1 Medical 10 mg dose, [place] Branch 01/21/21 at 1645, [place] ketorolac 2020- No 30mg 30 mg, Unive rs (TORADOL) 01-21 Slow IV ity of injection 20:45: 20:54 Push, [place] 30 mg 00 :00 ONCE, 1 Medical dose, [place] Branch 01/21/21 at 1545, [place]
Fa culty member approving Restricted medication : SANDEE GUILLEN ondansetron 2020- No 4mg 4 mg, Slow Univers (ZOFRAN 01-21 IV Push, ity of (PF)) 20:30: 19:40 ONCE, 1 [place] injection 4 00 :00 dose, Catherine Med ical mg 01/21/21 at Branch 1530, [place] NaCl 0.9% 2020- No 1000mL at 999 Uni vers (NS) bolus 01-21 04-01 mL/hr, ity of infusion 19:30: 21:15 1,000 mL, Jose as 1,000 mL 00 :00 IV Medical Infusion, Branch ONCE, 1 dose, Catherine 01/21/21 at 1430, [place] ondansetron Yes [id number] 4mg Take 1 Univers (ZOFRAN 4-01 tablet by ity of ODT) 4 mg 00:00: mouth [place] disintegrat 00 every 8 Medic al ing tablet (eight) Branch hours as needed for Nausea and Vomiting (N/V). ondansetron Yes [id number] 4mg Take 1 Univers (ZOFRAN 4-01 tablet by ity of ODT) 4 mg 00:00: mouth [place] disintegrat 00 every 8 Medic al ing tablet (eight) Branch hours as needed for Nausea and Vomiting (N/V). ondansetron Yes [id number] 4mg Take 1 Univers (ZOFRAN 4-01 tablet by ity of ODT) 4 mg 00:00: mouth [place] disintegrat 00 every 8 Medic al ing tablet (eight) Branch hours as needed for Nausea and Vomiting (N/V). ondansetron 2020- No [id number] 4mg Take 1 Univers (ZOFRAN 4-01 10-13 tablet by ity of ODT) 4 mg 00:00: 00:00 mouth [place] disintegrat 00 :00 every 8 Medic al ing tablet (eight) Branch hours as needed for Nausea and Vomiting (N/V). iohexol 2019-10- No 100mL 100 mL, Unive rs (OMNIPAQUE 10-20 Intravenou it y of 350 15:00: 14:52 s, ONCE, 1 [place] BULK-100 00 :00 dose, Tue Medica l mL) 10/20/20 Branch injection at 0915, 100 mL Routine ondansetron 2019-10- No 4mg 4 mg, Slow Univers (ZOFRAN 10-20 IV Push, ity of (PF)) 15:00: 14:01 ONCE, 1 [place] injection 4 00 :00 dose, Tue Med ical mg 10/20/20 Branch at 0900, [place] morpHINE 2020-1 2020- No 4mg 4 mg, Slow Un olay[place]a injection 4 2-29 12-29 IV Push, ity of mg 15:00: 14:03 ONCE, 1 [place] 00 :00 dose, [facility] 10/20/20 Branch at 0900, STAT diazePAM 2 2019- Yes [id number] 2mg Take 1 U nivers mg tablet 2-29 tablet by ity o f 00:00: mouth 3 [place] (three) Medical times Branch daily as needed for Muscle Spasms. ibuprofen 2019-10 Yes [id number] 800mg Take 1 U nivers 800 mg 2-29 tablet by ity of tablet 00:00: mouth [place] 00 every 8 Medical (eight) Branch hours. diazePAM 2 2019-10 Yes [id number] 2mg Take 1 U nivers mg tablet 2-29 tablet by ity o f 00:00: mouth 3 [place] (three) Medical times Branch daily as needed for Muscle Spasms. ibuprofen 2019-10 Yes [id number] 800mg Take 1 U nivers 800 mg 2-29 tablet by ity of tablet 00:00: mouth [place] 00 every 8 Medical (eight) Branch hours. diazePAM 2 2019-10 Yes [id number] 2mg Take 1 U nivers mg tablet 2-29 tablet by ity o f 00:00: mouth 3 (three) Medical times Branch daily as needed for Muscle Spasms. ibuprofen 2019-10 Yes [id number] 800mg Take 1 U nivers 800 mg 2-29 tablet by ity of tablet 00:00: mouth [place] 00 every 8 Medical (eight) Branch hours. diazePAM 2 2019-10 Yes [id number] 2mg Take 1 U nivers mg tablet 2-29 tablet by ity o f 00:00: mouth 3 [place] 00 (three) Medical times Branch daily as needed for Muscle Spasms. ibuprofen 2019-10 Yes [id number] 800mg Take 1 U nivers 800 mg 2-29 tablet by ity of tablet 00:00: mouth [place] 00 every 8 Medical (eight) Branch hours. diazePAM 2 2019- Yes [id number] 2mg Take 1 U nivers mg tablet 2-29 tablet by ity o f 00:00: mouth 3 [place] 00 (three) Medical times Branch daily as needed for Muscle Spasms. ibuprofen 2019-10 Yes [id number] 800mg Take 1 U nivers 800 mg 2-29 tablet by ity of tablet 00:00: mouth [place] 00 every 8 Medical (eight) Branch hours. diazePAM 2 2019- Yes [id number] 2mg Take 1 U nivers mg tablet 2-29 tablet by ity o f 00:00: mouth 3 [place] 00 (three) Medical times Branch daily as needed for Muscle Spasms. ibuprofen 2019-1 Yes [id number] 800mg Take 1 U nivers 800 mg 2-29 tablet by ity of tablet 00:00: mouth [place] 00 every 8 Medical (eight) Branch hours. ibuprofen 2019-0 2020- No 600mg 600 mg, Uni vers (IBU) 07-15 Oral, ity of tablet 600 22:45: 21:58 ONCE, 1 [place] mg 00 :00 dose, Wed Medical 07/15/20 at Branch 1745, [place] dicyclomine 2019-0 Yes [id number] 10mg Take 1 Univers (BENTYL) 10 9-23 capsule by it y of mg capsule 00:00: mouth 4 [place] (four) Medical times Branch daily as needed for Abdominal pain. dicyclomine 2020-0 Yes [id number] 10mg Take 1 Univers (BENTYL) 10 9-23 capsule by it y of mg capsule 00:00: mouth 4 [place] 00 (four) Medical times Branch daily as needed for Abdominal pain. dicyclomine 2020-0 Yes [id number] 10mg Take 1 Univers (BENTYL) 10 9-23 capsule by it y of mg capsule 00:00: mouth 4 [place] (four) Medical times Branch daily as needed for Abdominal pain. dicyclomine 2020-0 Yes [id number] 10mg Take 1 Univers (BENTYL) 10 9-23 capsule by it y of mg capsule 00:00: mouth 4 [place] (four) Medical times Branch daily as needed for Abdominal pain. dicyclomine 2020-0 Yes [id number] 10mg Take 1 Univers (BENTYL) 10 9-23 capsule by it y of mg capsule 00:00: mouth 4 [place] (four) Medical times Branch daily as needed for Abdominal pain. dicyclomine 2020-0 Yes [id number] 10mg Take 1 Univers (BENTYL) 10 9-23 capsule by it y of mg capsule 00:00: mouth 4 [place] 00 (four) Medical times Branch daily as needed for Abdominal pain. dicyclomine 2020-0 Yes [id number] 10mg Take 1 Univers (BENTYL) 10 9-23 capsule by it y of mg capsule 00:00: mouth 4 [place] (four) Medical times Branch daily as needed for Abdominal pain. dicyclomine 2020-0 Yes [id number] 10mg Take 1 Univers (BENTYL) 10 9-23 capsule by it y of mg capsule 00:00: mouth 4 [place] 00 (four) Medical times Branch daily as needed for Abdominal pain. ProAir HFA ProAir HFA 2020-0 Yes Benny 2 puffs as Common 06-02 Smart needed Spirit 00:00: - [facility] 00 [facility] ACETAMINOPH 2020-0 2020- No Take by U nivers EN EXTRA 3-27 03-27 mouth. ity of STRENGTH 18:34: 00:00 [place] ORAL 08 :00 Medical Branch ACETAMINOPH 2020-0 2020- No Take by U nivers EN EXTRA 3-27 03-27 mouth. ity of STRENGTH 18:34: 00:00 [place] ORAL 08 :00 Medical Branch ACETAMINOPH 2020-0 2020- No Take by U nivers EN EXTRA 3-27 03-27 mouth. ity of STRENGTH 18:34: 00:00 [place] ORAL 08 :00 Medical Branch ACETAMINOPH 2020-0 2020- No Take by U nivers EN EXTRA 3-27 03-27 mouth. ity of STRENGTH 18:34: 00:00 [place] ORAL 08 :00 Medical Branch traMADol 50 2020-0 Yes [id number] 50mg Take 1 Univers mg tablet 3-27 tablet by ity o f 00:00: mouth [place] 00 every 8 Medical (eight) Branch hours as needed (moderate pain). traMADol 50 2020-0 Yes [id number] 50mg Take 1 Univers mg tablet 3-27 tablet by ity o f 00:00: mouth [place] 00 every 8 Medical (eight) Branch hours as needed (moderate pain). traMADol 50 2020-0 Yes [id number] 50mg Take 1 Univers mg tablet 3-27 tablet by ity o f 00:00: mouth [place] 00 every 8 Medical (eight) Branch hours as needed (moderate pain). traMADol 50 2020-0 Yes [id number] 50mg Take 1 Univers mg tablet 3-27 tablet by ity o f 00:00: mouth [place] 00 every 8 Medical (eight) Branch hours as needed (moderate pain). traMADol 50 2020-0 Yes [id number] 50mg Take 1 Univers mg tablet 3-27 tablet by ity o f 00:00: mouth [place] 00 every 8 Medical (eight) Branch hours as needed (moderate pain). traMADol 50 2020-0 Yes [id number] 50mg Take 1 Univers mg tablet 3-27 tablet by ity o f 00:00: mouth [place] 00 every 8 Medical (eight) Branch hours as needed (moderate pain). traMADol 50 2020-0 Yes [id number] 50mg Take 1 Univers mg tablet 3-27 tablet by ity o f 00:00: mouth [place] 00 every 8 Medical (eight) Branch hours as needed (moderate pain). traMADol 50 2020-0 Yes [id number] 50mg Take 1 Univers mg tablet 3-27 tablet by ity o f 00:00: mouth [place] 00 every 8 Medical (eight) Branch hours as needed (moderate pain). traMADol 50 2020-0 Yes [id number] 50mg Take 1 Univers mg tablet 3-27 tablet by ity o f 00:00: mouth [place] 00 every 8 Medical (eight) Branch hours as needed (moderate pain). traMADol 50 2020-0 Yes [id number] 50mg Take 1 Univers mg tablet 3-27 tablet by ity o f 00:00: mouth [place] 00 every 8 Medical (eight) Branch hours as needed (moderate pain). traMADol 50 2020-0 Yes [id number] 50mg Take 1 Univers mg tablet 3-27 tablet by ity o f 00:00: mouth [place] 00 every 8 Medical (eight) Branch hours as needed (moderate pain). traMADol 50 2020-0 Yes [id number] 50mg Take 1 Univers mg tablet 3-27 tablet by ity o f 00:00: mouth [place] 00 every 8 Medical (eight) Branch hours as needed (moderate pain). traMADol 50 2020-0 Yes [id number] 50mg Take 1 Univers mg tablet 3-27 tablet by ity o f 00:00: mouth [place] 00 every 8 Medical (eight) Branch hours as needed (moderate pain). traMADol 50 2020-0 Yes [id number] 50mg Take 1 Univers mg tablet 3-27 tablet by ity o f 00:00: mouth [place] 00 every 8 Medical (eight) Branch hours as needed (moderate pain). traMADol 50 2020-0 Yes [id number] 50mg Take 1 Univers mg tablet 3-27 tablet by ity o f 00:00: mouth [place] 00 every 8 Medical (eight) Branch hours as needed (moderate pain). traMADol 50 2020-0 Yes [id number] 50mg Take 1 Univers mg tablet 3-27 tablet by ity o f 00:00: mouth [place] 00 every 8 Medical (eight) Branch hours as needed (moderate pain). traMADol 50 2020-0 Yes [id number] 50mg Take 1 Univers mg tablet 3-27 tablet by ity o f 00:00: mouth [place] 00 every 8 Medical (eight) Branch hours as needed (moderate pain). traMADol 50 2020-0 Yes [id number] 50mg Take 1 Univers mg tablet 3-27 tablet by ity o f 00:00: mouth [place] 00 every 8 Medical (eight) Branch hours as needed (moderate pain). traMADol 50 2020-0 Yes [id number] 50mg Take 1 Univers mg tablet 3-27 tablet by ity o f 00:00: mouth [place] 00 every 8 Medical (eight) Branch hours as needed (moderate pain). OMEPRAZOLE 2020-0 Yes 40mg Take 40 mg U nivers ORAL 3-16 by mouth. ity of 14:17: [address] ACETAMINOPH 2020-0 Yes Take by Un [place]ay[place]a EN EXTRA 3-16 mouth. ity of STRENGTH 14:17: [address] BUPROPION 2020-0 Yes Take by Univ ers HCL ORAL 3-16 mouth. ity of 14:17: [address] OMEPRAZOLE 2020-0 Yes 40mg Take 40 mg U nivers ORAL 3-16 by mouth. ity of 14:17: [address] ACETAMINOPH 2020-0 Yes Take by Un [place] EN EXTRA 3-16 mouth. ity of STRENGTH 14:17: [address] Branch BUPROPION 2020-0 Yes Take by Univ ers HCL ORAL 3-16 mouth. ity of 14:17: [address] OMEPRAZOLE 2020-0 Yes 40mg Take 40 mg U nivers ORAL 3-16 by mouth. ity of 14:17: [address] ACETAMINOPH 2020-0 Yes Take by Un [place] EN EXTRA 3-16 mouth. ity of STRENGTH 14:17: [place] ORAL 39 Medical Branch BUPROPION 2020-0 Yes Take by Univ ers HCL ORAL 3-16 mouth. ity of 14:17: [address] OMEPRAZOLE 2020-0 Yes 40mg Take 40 mg U nivers ORAL 3-16 by mouth. ity of 14:17: [address] ACETAMINOPH 2020-0 Yes Take by Un [place] EN EXTRA 3-16 mouth. ity of STRENGTH 14:17: [address] Branch BUPROPION 2020-0 Yes Take by Univ ers HCL ORAL 3-16 mouth. ity of 14:17: [address] OMEPRAZOLE 2020-0 Yes 40mg Take 40 mg U nivers ORAL 3-16 by mouth. ity of 14:17: [address] BUPROPION 2020-0 Yes Take by Univ ers HCL ORAL 3-16 mouth. ity of 14:17: [address] OMEPRAZOLE 2020-0 Yes 40mg Take 40 mg U nivers ORAL 3-16 by mouth. ity of 14:17: [address] BUPROPION 2020-0 Yes Take by Univ ers HCL ORAL 3-16 mouth. ity of 14:17: [address] OMEPRAZOLE 2020-0 Yes 40mg Take 40 mg U nivers ORAL 3-16 by mouth. ity of 14:17: [address] BUPROPION 2020-0 Yes Take by Univ ers HCL ORAL 3-16 mouth. ity of 14:17: [address] OMEPRAZOLE 2020-0 Yes 40mg Take 40 mg U nivers ORAL 3-16 by mouth. ity of 14:17: [address] BUPROPION 2020-0 Yes Take by Univ ers HCL ORAL 3-16 mouth. ity of 14:17: [address] OMEPRAZOLE 2020-0 Yes 40mg Take 40 mg U nivers ORAL 3-16 by mouth. ity of 14:17: [address] BUPROPION 2020-0 Yes Take by Univ ers HCL ORAL 3-16 mouth. ity of 14:17: [address] OMEPRAZOLE 2020-0 Yes 40mg Take 40 mg U nivers ORAL 3-16 by mouth. ity of 14:17: [address] BUPROPION 2020-0 Yes Take by Univ ers HCL ORAL 3-16 mouth. ity of 14:17: [address] OMEPRAZOLE 2020-0 Yes 40mg Take 40 mg U nivers ORAL 3-16 by mouth. ity of 14:17: [address] BUPROPION 2020-0 Yes Take by Univ ers HCL ORAL 3-16 mouth. ity of 14:17: [address] OMEPRAZOLE 2020-0 Yes 40mg Take 40 mg U nivers ORAL 3-16 by mouth. ity of 14:17: [address] BUPROPION 2020-0 Yes Take by Univ ers HCL ORAL 3-16 mouth. ity of 14:17: [address] OMEPRAZOLE 2020-0 Yes 40mg Take 40 mg U nivers ORAL 3-16 by mouth. ity of 14:17: [address] BUPROPION 2020-0 Yes Take by Univ ers HCL ORAL 3-16 mouth. ity of 14:17: [address] OMEPRAZOLE 2020-0 Yes 40mg Take 40 mg U nivers ORAL 3-16 by mouth. ity of 14:17: [address] BUPROPION 2020-0 Yes Take by Univ ers HCL ORAL 3-16 mouth. ity of 14:17: [address] OMEPRAZOLE 2020-0 Yes 40mg Take 40 mg U nivers ORAL 3-16 by mouth. ity of 14:17: [address] BUPROPION 2020-0 Yes Take by Univ ers HCL ORAL 3-16 mouth. ity of 14:17: [address] OMEPRAZOLE 2020-0 Yes 40mg Take 40 mg U nivers ORAL 3-16 by mouth. ity of 14:17: [address] BUPROPION 2020-0 Yes Take by Univ ers HCL ORAL 3-16 mouth. ity of 14:17: [address] OMEPRAZOLE 2020-0 Yes 40mg Take 40 mg U nivers ORAL 3-16 by mouth. ity of 14:17: [address] BUPROPION 2020-0 Yes Take by Univ ers HCL ORAL 3-16 mouth. ity of 14:17: [address] OMEPRAZOLE 2020-0 Yes 40mg Take 40 mg U nivers ORAL 3-16 by mouth. ity of 14:17: [address] BUPROPION 2020-0 Yes Take by Univ ers HCL ORAL 3-16 mouth. ity of 14:17: [address] OMEPRAZOLE 2020-0 Yes 40mg Take 40 mg U nivers ORAL 3-16 by mouth. ity of 14:17: [address] BUPROPION 2020-0 Yes Take by Univ ers HCL ORAL 3-16 mouth. ity of 14:17: [address] OMEPRAZOLE 2020-0 Yes 40mg Take 40 mg U nivers ORAL 3-16 by mouth. ity of 14:17: [address] BUPROPION 2020-0 Yes Take by Univ ers HCL ORAL 3-16 mouth. ity of 14:17: [address] OMEPRAZOLE 2020-0 Yes 40mg Take 40 mg U nivers ORAL 3-16 by mouth. ity of 14:17: [address] BUPROPION 2020-0 Yes Take by Univ ers HCL ORAL 3-16 mouth. ity of 14:17: [address] OMEPRAZOLE 2020-0 Yes 40mg Take 40 mg U nivers ORAL 3-16 by mouth. ity of 14:17: [address] BUPROPION 2020-0 Yes Take by Univ ers HCL ORAL 3-16 mouth. ity of 14:17: [address] OMEPRAZOLE 2020-0 Yes 40mg Take 40 mg U nivers ORAL 3-16 by mouth. ity of 09:17: [address] BUPROPION 2020-0 Yes Take by Univ ers HCL ORAL 3-16 mouth. ity of 09:17: [address] HYDROcodone 2020-0 Yes [id number] 1{tbl} Take 1 Univers -acetaminop 3-16 tablet by ity of hen 5-325 00:00: mouth [place] mg tablet 00 every 6 Medical (six) Branch hours as needed for Pain (scale 4-6) or Pain (scale 7-10). HYDROcodone 2020-0 Yes [id number] 1{tbl} Take 1 Univers -acetaminop 3-16 tablet by ity of hen 5-325 00:00: mouth [place] mg tablet 00 every 6 Medical (six) Branch hours as needed for Pain (scale 4-6) or Pain (scale 7-10). HYDROcodone 2020-0 Yes [id number] 1{tbl} Take 1 Univers -acetaminop 3-16 tablet by ity of hen 5-325 00:00: mouth [place] mg tablet 00 every 6 Medical (six) Branch hours as needed for Pain (scale 4-6) or Pain (scale 7-10). HYDROcodone 2020-0 2020- No [id number] 1{tbl} Take 1 Univers -acetaminop 3-16 03-27 tablet by it y of hen 5-325 00:00: 00:00 mouth [place] mg tablet 00 :00 every 6 Medical (six) Branch hours as needed for Pain (scale 4-6) or Pain (scale 7-10). HYDROcodone 2020-0 2020- No [id number] 1{tbl} Take 1 Univers -acetaminop 3-16 03-27 tablet by it y of hen 5-325 00:00: 00:00 mouth [place] mg tablet 00 :00 every 6 Medical (six) Branch hours as needed for Pain (scale 4-6) or Pain (scale 7-10). HYDROcodone 2020-0 2020- No [id number] 1{tbl} Take 1 Univers -acetaminop 3-16 03-27 tablet by it y of hen 5-325 00:00: 00:00 mouth [place] mg tablet 00 :00 every 6 Medical (six) Branch hours as needed for Pain (scale 4-6) or Pain (scale 7-10). HYDROcodone 2020-0 2020- No [id number] 1{tbl} Take 1 Univers -acetaminop 3-16 03-27 tablet by it y of hen 5-325 00:00: 00:00 mouth [place] mg tablet 00 :00 every 6 Medical (six) Branch hours as needed for Pain (scale 4-6) or Pain (scale 7-10). meperidine 2020-0 2020- No 50mg 50 mg, Univ ers (DEMEROL) 01-02 Intravenou ity of injection 18:45: 18:43 s, ONCE, 1 [place] 50 mg 00 :00 dose, Fri Medical 01/03/20 at Branch 1345, WATSON, PACU
En ter indication for use: [facility]
membership counselor approving Restricted medication : SONDRA CHASE morpHINE 2020-0 Yes 2mg 2 mg, Slow Uni vers injection 2 01-02 IV Push, ity of mg 18:42: Q5MIN PRN, [place] 44 5 doses, Medical Starting Branch 01/03/20 at 1342, Until Discontinu ed, Routine, Pain (scale 4-6), PACU ondansetron 2020-0 Yes 4mg 4 mg, Slow Univers (ZOFRAN 01-02 IV Push, ity of (PF)) 18:42: PRN, 1 [place] injection 4 44 dose, Medical mg Starting Branch 01/03/20 at 1342, Until Discontinu ed, Routine, Nausea and Vomiting (N/V), PACU lactated 2020-0 Yes 1000mL at 75 [facility] ringers IV 3-13 mL/hr, ity [place] infusion 18:30: 1[place]000 [place] 1[place]000 [place] 00 IV Medical Infusion, Branch CONTINUOUS , Starting 01/03/20 at 1330, Until Discontinu ed, Routine, PACU HYDROcodone 2020-0 2020- No 1{tbl} 1 tablet, Univers -acetaminop 3-13 03-13 Oral, ity of hen (NORCO 18:30: 19:07 ONCE, 1 [place] 5) 5-325 mg 00 :00 dose, Mon Med ical tablet 1 01/03/20 at Branc h tablet 1330, Routine, PACU HYDROcodone 2020-0 Yes 1{tbl} 1 tablet, Univers -acetaminop 3-13 Oral, PRN, it y of hen (NORCO) 18:18: 1 dose, [place] 10-325 mg 14 Starting Medica l tablet 1 Fri Branch tablet 01/03/20 at 1318, Until Discontinu ed, Routine, Pain (scale 7-10), DSU Recovery HYDROcodone 2020-0 Yes 1{tbl} 1 tablet, Univers -acetaminop 3-13 Oral, PRN, it y of hen (NORCO) 18:18: 1 dose, [place] 10-325 mg 14 Starting Medica l tablet 1 Fri Branch tablet 01/03/20 at 1318, Until Discontinu ed, Routine, Pain (scale 4-6), DSU Recovery ibuprofen 2020-0 Yes 800mg 800 mg, Univ ers (IBU) 3-13 Oral, PRN, ity of tablet 800 18:18: 1 dose, [place] mg 14 Starting Medical Fri Branch 01/03/20 at 1318, Until Discontinu ed, Routine, Pain (scale 1-3), DSU Recovery morpHINE 2020-0 Yes 2mg 2 mg, Slow Uni vers injection 2 3-13 IV Push, ity of mg 18:17: Q5MIN PRN, [place] 54 5 doses, Medical Starting Branch 01/03/20 at 1317, Until Discontinu ed, Routine, Pain (scale 4-6), PACU ondansetron 2020-0 Yes 4mg 4 mg, Slow Univers (ZOFRAN 3-13 IV Push, ity of (PF)) 18:17: PRN, 1 [place] injection 4 54 dose, Medical mg Starting Branch 01/03/20 at 1317, Until Discontinu ed, Routine, Nausea and Vomiting (N/V), PACU D5W-LR IV 2020-0 Yes 1000mL at 125 [facility] ers infusion 3-13 mL/hr, IV ity of 1,000 mL 18:15: Infusion, [place] 00 CONTINUOUS Medical , Starting Branch Mon01/03/20 at 1315, Until Discontinu ed, Routine ketorolac 2020-0 2020- No 30mg 30 mg, Unive rs (TORADOL) 313 13 Intramuscu ity of injection 18:15: 18:38 lar, ONCE, [place] 30 mg 00 :00 1 dose, Medical [facility] Branch 01/03/20 at 1330, Routine
membership counselor approving Restricted medication : SONDRA CHAVIRA HYDROcodone 2020-0 Yes 2{tbl} 2 tablet, Univers -acetaminop 3-13 Oral, ity of hen (NORCO 18:10: Q6HPRN, [place] 5) 5-325 mg 00 Starting Medi gabriel tablet 2 Mon Branch tablet 01/03/20 at 1310, Until Discontinu ed, Routine, Pain (scale 7-10) OMEPRAZOLE 2020-0 Yes 40mg Take 40 mg U nivers ORAL 3-13 by mouth. ity of 17:55: [address] ACETAMINOPH 2020-0 Yes Take by olayinka EN EXTRA 3-13 mouth. ity of STRENGTH 17:55: [address] BUPROPION 2020-0 Yes Take by [facility] ers HCL ORAL 3-13 mouth. ity of 17:55: [address] bupivacaine 2020-0 Yes PRN, [facility] s -epinephrin 3-13 Starting ity of e-pf 17:05: Fri [place] (SENSORCAIN 00 01/03/20 at Vt dical E 1205, Branch W/EPINEPHRI Until NE) 0.5 Discontinu %-1:200,000 ed, injection Routine, Intra-op sodium 2020-0 Yes PRN, Univers chloride 3-13 Starting ity of 0.9 % 17:05: Fri [place] irrigation 00 01/03/20 at Med ical solution 1205, Branch Until Discontinu ed, Intra-op metroNIDAZO 2020-0 Yes 2000mg 2,000 mg, Univers LE (FLAGYL 3-13 IV ity of I.V.) 16:02: Piggyback, [place] Piggyback 40 [address]. Medical 2,000 mg HOLDING Branch ONCE, 1 dose, Starting Mon01/03/20 at 1102, Until Discontinu ed, 400 mL, Intra-op<b r>Reason for Anti-Infec tive: Surgical Prophylaxi s
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
Duration of therapy: within 24 hours of surgery lactated 2020-0 2020- No 1000mL at 20 Unive rs ringers IV 3-13 03-13 mL/hr, ity of infusion 14:00: 14:58 1,000 mL, [place] 1,000 mL 00 :00 IV Medical Infusion, Branch ONCE, 1 dose, Mon01/03/20 at 0900, Routine, DSU Pre-op HYDROcodone 2020-0 Yes [id number] 1{tbl} Take 1 Univers -acetaminop 3-13 tablet by ity of hen 5-325 00:00: mouth [place] mg tablet 00 every 6 Medical (six) Branch hours as needed for Pain (scale 4-6) or Pain (scale 7-10). HYDROcodone 2020-0 Yes [id number] 1{tbl} Take 1 Univers -acetaminop 3-13 tablet by ity of hen 5-325 00:00: mouth [place] mg tablet 00 every 6 Medical (six) Branch hours as needed for Pain (scale 4-6) or Pain (scale 7-10). HYDROcodone 2020-0 Yes [id number] 1{tbl} Take 1 Univers -acetaminop 3-13 tablet by ity of hen 5-325 00:00: mouth [place] mg tablet 00 every 6 Medical (six) Branch hours as needed for Pain (scale 4-6) or Pain (scale 7-10). HYDROcodone 2020-0 Yes [id number] 1{tbl} Take 1 Univers -acetaminop 3-13 tablet by ity of hen 5-325 00:00: mouth [place] mg tablet 00 every 6 Medical (six) Branch hours as needed for Pain (scale 4-6) or Pain (scale 7-10). HYDROcodone 2019- 2020- No [id number] 1{tbl} Take 1 Univers -acetaminop 3-13 03-27 tablet by it y of hen 5-325 00:00: 00:00 mouth [place] mg tablet 00 :00 every 6 Medical (six) Branch hours as needed for Pain (scale 4-6) or Pain (scale 7-10). HYDROcodone 2019- 2020- No [id number] 1{tbl} Take 1 Univers -acetaminop 3-13 03-27 tablet by it y of hen 5-325 00:00: 00:00 mouth [place] mg tablet 00 :00 every 6 Medical (six) Branch hours as needed for Pain (scale 4-6) or Pain (scale 7-10). HYDROcodone 2019- 2020- No [id number] 1{tbl} Take 1 Univers -acetaminop 3-13 03-27 tablet by it y of hen 5-325 00:00: 00:00 mouth [place] mg tablet 00 :00 every 6 Medical (six) Branch hours as needed for Pain (scale 4-6) or Pain (scale 7-10). HYDROcodone 2019-2019- No [id number] 1{tbl} Take 1 Univers -acetaminop 3-13 03-27 tablet by it y of hen 5-325 00:00: 00:00 mouth [place] mg tablet 00 :00 every 6 Medical (six) Branch hours as needed for Pain (scale 4-6) or Pain (scale 7-10). ibuprofen 2020-0 Yes [id number] 600mg Take 1 [facility] 600 mg 2-21 tablet by ity of tablet 00:00: mouth [place] 00 every 6 Medical (six) Branch hours as needed (pain). Take one tablet every 6 hours for 5 days then every 6 hours as needed. ibuprofen 2020-0 Yes [id number] 600mg Take 1 [facility] 600 mg 2-21 tablet by ity of tablet 00:00: mouth [place] 00 every 6 Medical (six) Branch hours as needed (pain). Take one tablet every 6 hours for 5 days then every 6 hours as needed. ibuprofen 2020-0 Yes [id number] 600mg Take 1 [facility] 600 mg 2-21 tablet by ity of tablet 00:00: mouth [place] 00 every 6 Medical (six) Branch hours as needed (pain). Take one tablet every 6 hours for 5 days then every 6 hours as needed. ibuprofen 2020-0 Yes [id number] 600mg Take 1 [facility] 600 mg 2-21 tablet by ity of tablet 00:00: mouth [place] 00 every 6 Medical (six) Branch hours as needed (pain). Take one tablet every 6 hours for 5 days then every 6 hours as needed. ibuprofen 2020-0 Yes [id number] 600mg Take 1 [facility] 600 mg 2-21 tablet by ity of tablet 00:00: mouth [place] 00 every 6 Medical (six) Branch hours as needed (pain). Take one tablet every 6 hours for 5 days then every 6 hours as needed. ibuprofen 2020-0 Yes [id number] 600mg Take 1 [facility] 600 mg 2-21 tablet by ity of tablet 00:00: mouth [place] 00 every 6 Medical (six) Branch hours as needed (pain). Take one tablet every 6 hours for 5 days then every 6 hours as needed. ibuprofen 2020-0 Yes [id number] 600mg Take 1 [facility] 600 mg 2-21 tablet by ity of tablet 00:00: mouth [place] 00 every 6 Medical (six) Branch hours as needed (pain). Take one tablet every 6 hours for 5 days then every 6 hours as needed. ibuprofen 2020-0 Yes [id number] 600mg Take 1 [facility] 600 mg 2-21 tablet by ity of tablet 00:00: mouth [place] 00 every 6 Medical (six) Branch hours as needed (pain). Take one tablet every 6 hours for 5 days then every 6 hours as needed. ibuprofen 2020-0 Yes [id number] 600mg Take 1 [facility] 600 mg 2-21 tablet by ity of tablet 00:00: mouth [place] 00 every 6 Medical (six) Branch hours as needed (pain). Take one tablet every 6 hours for 5 days then every 6 hours as needed. ibuprofen 2020-0 Yes [id number] 600mg Take 1 [facility] 600 mg 2-21 tablet by ity of tablet 00:00: mouth [place] 00 every 6 Medical (six) Branch hours as needed (pain). Take one tablet every 6 hours for 5 days then every 6 hours as needed. ibuprofen 2020-0 Yes [id number] 600mg Take 1 [facility] 600 mg 2-21 tablet by ity of tablet 00:00: mouth [place] 00 every 6 Medical (six) Branch hours as needed (pain). Take one tablet every 6 hours for 5 days then every 6 hours as needed. ibuprofen 2020-0 Yes [id number] 600mg Take 1 [facility] 600 mg 2-21 tablet by ity of tablet 00:00: mouth [place] 00 every 6 Medical (six) Branch hours as needed (pain). Take one tablet every 6 hours for 5 days then every 6 hours as needed. ibuprofen 2020-0 Yes [id number] 600mg Take 1 [facility] 600 mg 2-21 tablet by ity of tablet 00:00: mouth [place] 00 every 6 Medical (six) Branch hours as needed (pain). Take one tablet every 6 hours for 5 days then every 6 hours as needed. ibuprofen 2020-0 Yes [id number] 600mg Take 1 [facility] 600 mg 2-21 tablet by ity of tablet 00:00: mouth [place] 00 every 6 Medical (six) Branch hours as needed (pain). Take one tablet every 6 hours for 5 days then every 6 hours as needed. ibuprofen 2020-0 Yes [id number] 600mg Take 1 [facility] 600 mg 2-21 tablet by ity of tablet 00:00: mouth [place] 00 every 6 Medical (six) Branch hours as needed (pain). Take one tablet every 6 hours for 5 days then every 6 hours as needed. ibuprofen 2020-0 Yes [id number] 600mg Take 1 [facility] 600 mg 2-21 tablet by ity of tablet 00:00: mouth [place] 00 every 6 Medical (six) Branch hours as needed (pain). Take one tablet every 6 hours for 5 days then every 6 hours as needed. ibuprofen 2020-0 Yes [id number] 600mg Take 1 [facility] 600 mg 2-21 tablet by ity of tablet 00:00: mouth [place] 00 every 6 Medical (six) Branch hours as needed (pain). Take one tablet every 6 hours for 5 days then every 6 hours as needed. ibuprofen 2020-0 Yes [id number] 600mg Take 1 [facility] 600 mg 2-21 tablet by ity of tablet 00:00: mouth [place] 00 every 6 Medical (six) Branch hours as needed (pain). Take one tablet every 6 hours for 5 days then every 6 hours as needed. ibuprofen 2020-0 Yes [id number] 600mg Take 1 [facility] 600 mg 2-21 tablet by ity of tablet 00:00: mouth [place] 00 every 6 Medical (six) Branch hours as needed (pain). Take one tablet every 6 hours for 5 days then every 6 hours as needed. ibuprofen 2020-0 Yes [id number] 600mg Take 1 [facility] 600 mg 2-21 tablet by ity of tablet 00:00: mouth [place] 00 every 6 Medical (six) Branch hours as needed (pain). Take one tablet every 6 hours for 5 days then every 6 hours as needed. ibuprofen 2020-0 Yes [id number] 600mg Take 1 [facility] 600 mg 2-21 tablet by ity of tablet 00:00: mouth [place] 00 every 6 Medical (six) Branch hours as needed (pain). Take one tablet every 6 hours for 5 days then every 6 hours as needed. ibuprofen 2020-0 Yes [id number] 600mg Take 1 [facility] 600 mg 2-21 tablet by ity of tablet 00:00: mouth [place] 00 every 6 Medical (six) Branch hours as needed (pain). Take one tablet every 6 hours for 5 days then every 6 hours as needed. ibuprofen 2020-0 Yes [id number] 600mg Take 1 [facility] 600 mg 2-21 tablet by ity of tablet 00:00: mouth [place] 00 every 6 Medical (six) Branch hours as needed (pain). Take one tablet every 6 hours for 5 days then every 6 hours as needed. ibuprofen 2020-0 Yes [id number] 600mg Take 1 [facility] 600 mg 2-21 tablet by ity of tablet 00:00: mouth [place] 00 every 6 Medical (six) Branch hours as needed (pain). Take one tablet every 6 hours for 5 days then every 6 hours as needed. ceFAZolin 2020-0 2020- No 2g Univers in dextrose 2-18 -18 ity of (iso-os) 06:00: 17:59 [place] (ANCEF) 2 00 :00 Medical gram/100 mL Branch Piggyback 2 g ceFAZolin 2020-0 2020- No 2g Univers in dextrose 2-18 -18 ity of (iso-os) 06:00: 17:59 [place] (ANCEF) 2 00 :00 Medical gram/100 mL Branch Piggyback 2 g ceFAZolin 2020-0 2020- No 2g Univers in dextrose 2-18 -18 ity of (iso-os) 06:00: 17:59 [place] (ANCEF) 2 00 :00 Medical gram/100 mL Branch Piggyback 2 g traMADol 50 2020-0 Yes [id number] 50mg Take 1 Univers mg tablet 2-09 tablet by ity o f 00:00: mouth [place] 00 every 6 Medical (six) Branch hours as needed (pain). traMADol 50 2020-0 Yes [id number] 50mg Take 1 Univers mg tablet 2-09 tablet by ity o f 00:00: mouth [place] 00 every 6 Medical (six) Branch hours as needed (pain). traMADol 50 2020-0 Yes [id number] 50mg Take 1 Univers mg tablet 2-09 tablet by ity o f 00:00: mouth [place] 00 every 6 Medical (six) Branch hours as needed (pain). traMADol 50 2020-0 Yes [id number] 50mg Take 1 Univers mg tablet 2-09 tablet by ity o f 00:00: mouth [place] 00 every 6 Medical (six) Branch hours as needed (pain). traMADol 50 2020-0 Yes [id number] 50mg Take 1 Univers mg tablet 2-09 tablet by ity o f 00:00: mouth [place] 00 every 6 Medical (six) Branch hours as needed (pain). traMADol 50 2020-0 Yes [id number] 50mg Take 1 Univers mg tablet 2-09 tablet by ity o f 00:00: mouth [place] 00 every 6 Medical (six) Branch hours as needed (pain). traMADol 50 2020-0 Yes [id number] 50mg Take 1 Univers mg tablet 2-09 tablet by ity o f 00:00: mouth [place] 00 every 6 Medical (six) Branch hours as needed (pain). traMADol 50 2020-0 Yes [id number] 50mg Take 1 Univers mg tablet 2-09 tablet by ity o f 00:00: mouth [place] 00 every 6 Medical (six) Branch hours as needed (pain). traMADol 50 2020-0 Yes [id number] 50mg Take 1 Univers mg tablet 2-09 tablet by ity o f 00:00: mouth [place] 00 every 6 Medical (six) Branch hours as needed (pain). traMADol 50 2020-0 Yes [id number] 50mg Take 1 Univers mg tablet 2-09 tablet by ity o f 00:00: mouth [place] 00 every 6 Medical (six) Branch hours as needed (pain). traMADol 50 2020-0 Yes [id number] 50mg Take 1 Univers mg tablet 2-09 tablet by ity o f 00:00: mouth [place] 00 every 6 Medical (six) Branch hours as needed (pain). traMADol 50 2020-0 Yes [id number] 50mg Take 1 Univers mg tablet 2-09 tablet by ity o f 00:00: mouth [place] 00 every 6 Medical (six) Branch hours as needed (pain). traMADol 50 2020-0 Yes [id number] 50mg Take 1 Univers mg tablet 2-09 tablet by ity o f 00:00: mouth [place] 00 every 6 Medical (six) Branch hours as needed (pain). traMADol 50 2020-0 Yes [id number] 50mg Take 1 Univers mg tablet 2-09 tablet by ity o f 00:00: mouth [place] 00 every 6 Medical (six) Branch hours as needed (pain). traMADol 50 2020-0 Yes [id number] 50mg Take 1 Univers mg tablet 2-09 tablet by ity o f 00:00: mouth [place] 00 every 6 Medical (six) Branch hours as needed (pain). traMADol 50 2020-0 Yes [id number] 50mg Take 1 Univers mg tablet 2-09 tablet by ity o f 00:00: mouth [place] 00 every 6 Medical (six) Branch hours as needed (pain). traMADol 50 2020-0 Yes [id number] 50mg Take 1 Univers mg tablet 2-09 tablet by ity o f 00:00: mouth [place] 00 every 6 Medical (six) Branch hours as needed (pain). traMADol 50 2020-0 Yes [id number] 50mg Take 1 Univers mg tablet 2-09 tablet by ity o f 00:00: mouth [place] 00 every 6 Medical (six) Branch hours as needed (pain). traMADol 50 2020-0 Yes [id number] 50mg Take 1 Univers mg tablet 2-09 tablet by ity o f 00:00: mouth [place] 00 every 6 Medical (six) Branch hours as needed (pain). traMADol 50 2020-0 Yes [id number] 50mg Take 1 Univers mg tablet 2-09 tablet by ity o f 00:00: mouth [place] 00 every 6 Medical (six) Branch hours as needed (pain). traMADol 50 2020-0 Yes [id number] 50mg Take 1 Univers mg tablet 2-09 tablet by ity o f 00:00: mouth [place] 00 every 6 Medical (six) Branch hours as needed (pain). traMADol 50 2020-0 Yes [id number] 50mg Take 1 Univers mg tablet 2-09 tablet by ity o f 00:00: mouth [place] 00 every 6 Medical (six) Branch hours as needed (pain). traMADol 50 2020-0 Yes [id number] 50mg Take 1 Univers mg tablet 2-09 tablet by ity o f 00:00: mouth [place] 00 every 6 Medical (six) Branch hours as needed (pain). traMADol 50 2020-0 Yes [id number] 50mg Take 1 Univers mg tablet 2-09 tablet by ity o f 00:00: mouth [place] 00 every 6 Medical (six) Branch hours as needed (pain). traMADol 50 2020-0 Yes [id number] 50mg Take 1 Univers mg tablet 2-09 tablet by ity o f 00:00: mouth [place] 00 every 6 Medical (six) Branch hours as needed (pain). traMADol 50 2020-0 Yes [id number] 50mg Take 1 Univers mg tablet 2-09 tablet by ity o f 00:00: mouth [place] 00 every 6 Medical (six) Branch hours as needed (pain). traMADol 50 2020-0 Yes [id number] 50mg Take 1 Univers mg tablet 2-09 tablet by ity o f 00:00: mouth [place] 00 every 6 Medical (six) Branch hours as needed (pain). traMADol 50 2020-0 Yes [id number] 50mg Take 1 Univers mg tablet 2-09 tablet by ity o f 00:00: mouth [place] 00 every 6 Medical (six) Branch hours as needed (pain). traMADol 50 2020-0 Yes [id number] 50mg Take 1 [facility] mg tablet 2-09 tablet by ity o f 00:00: mouth [place] 00 every 6 Medical (six) Branch hours as needed (pain). traMADol 50 2020-0 Yes [id number] 50mg Take 1 [facility] mg tablet 2-09 tablet by ity o f 00:00: mouth [place] 00 every 6 Medical (six) Branch hours as needed (pain). traMADol 50 2020-0 Yes [id number] 50mg Take 1 [facility] mg tablet 2-09 tablet by ity o f 00:00: mouth [place] 00 every 6 Medical (six) Branch hours as needed (pain). traMADol 50 2020-0 Yes [id number] 50mg Take 1 [facility] mg tablet 2-09 tablet by ity o f 00:00: mouth [place] 00 every 6 Medical (six) Branch hours as needed (pain). traMADol 50 2020-0 Yes [id number] 50mg Take 1 Univers mg tablet 2-09 tablet by ity o f 00:00: mouth [place] 00 every 6 Medical (six) Branch hours as needed (pain). BUPROPION 2020-0 Yes Take by Univ ers HCL ORAL 2-07 mouth. ity of 23:53: [place] [address] Medical Branch BUPROPION 2020-0 Yes Take by Univ ers HCL ORAL 2-07 mouth. ity of 23:53: [place] [address] Medical Branch BUPROPION 2020-0 Yes Take by Univ ers HCL ORAL 2-07 mouth. ity of 23:53: [place] [address] Medical Branch BUPROPION 2020-0 Yes Take by Univ ers HCL ORAL 2-07 mouth. ity of 23:53: [place] [address] Medical Branch BUPROPION 2020-0 Yes Take by Univ ers HCL ORAL 2-07 mouth. ity of 23:53: [place] [address] Medical Branch BUPROPION 2020-0 Yes Take by Univ ers HCL ORAL 2-07 mouth. ity of 23:53: [place] [address] Medical Branch BUPROPION 2020-0 Yes Take by Univ ers HCL ORAL 2-07 mouth. ity of 23:53: [place] [address] Medical Branch BUPROPION 2020-0 Yes Take by Univ ers HCL ORAL 2-07 mouth. ity of 23:53: [place] [address] Medical Branch BUPROPION 2020-0 Yes Take by Univ ers HCL ORAL 2-07 mouth. ity of 23:53: [place] [address] Medical Branch BUPROPION 2020-0 Yes Take by Univ ers HCL ORAL 2-07 mouth. ity of 23:53: [place] [address] Medical Branch BUPROPION 2020-0 Yes Take by Univ ers HCL ORAL 2-07 mouth. ity of 23:53: [place] [address] Medical Branch ACETAMINOPH 2020-0 Yes Take by Un olayinka EN EXTRA 2-07 mouth. ity of STRENGTH 23:03: [place] [address] Medical Branch ACETAMINOPH 2020-0 Yes Take by Un olayinka EN EXTRA 2-07 mouth. ity of STRENGTH 23:03: [place] [address] Medical Branch ACETAMINOPH 2020-0 Yes Take by Un [place] EN EXTRA 2-07 mouth. ity of STRENGTH 23:03: [place] ORAL 45 Medical Branch ACETAMINOPH 2020-0 Yes Take by Un olayinka EN EXTRA 2-07 mouth. ity of STRENGTH 23:03: [place] ORAL 45 Medical Branch ACETAMINOPH 2020-0 Yes Take by Un olayinka EN EXTRA 2-07 mouth. ity of STRENGTH 23:03: [place] ORAL 45 Medical Branch ACETAMINOPH 2020-0 Yes Take by Un olayinka EN EXTRA 2-07 mouth. ity of STRENGTH 23:03: [place] ORAL 45 Medical Branch ACETAMINOPH 2020-0 Yes Take by Un olayinka EN EXTRA 2-07 mouth. ity of STRENGTH 23:03: [place] ORAL 45 Medical Branch ACETAMINOPH 2020-0 Yes Take by Un olayinka EN EXTRA 2-07 mouth. ity of STRENGTH 23:03: [place] ORAL 45 Medical Branch ACETAMINOPH 2020-0 Yes Take by Un olayinka EN EXTRA 2-07 mouth. ity of STRENGTH 23:03: [place] ORAL Medical Branch ACETAMINOPH 2020-0 Yes Take by Un olayinka EN EXTRA 2-07 mouth. ity of STRENGTH 23:03: [place] [address] Medical Branch ACETAMINOPH 2020-0 Yes Take by Un olayinka EN EXTRA 2-07 mouth. ity of STRENGTH 23:03: [place] [address] Medical Branch gabapentin 2020-0 Yes [id number] 300mg Take 1 Univers 300 mg 2-07 capsule by ity of capsule 00:00: mouth 3 [place] 00 (three) Medical times Branch daily. acetaminoph 2020-0 Yes [id number] 1000mg Take 2 Univers en (TYLENOL 2-07 tablets by it y of EXTRA 00:00: mouth [place] STRENGTH) 00 every 6 Medical 500 mg (six) Branch tablet hours. celecoxib 2020-0 Yes [id number] 200mg Take 1 Univers (CELEBREX) 2-07 capsule by ity of 200 mg 00:00: mouth 2 [place] capsule 00 (two) Medical times Branch daily with meals. gabapentin 2020-0 Yes [id number] 300mg Take 1 [facility] 300 mg 2-07 capsule by ity of capsule 00:00: mouth 3 [place] 00 (three) Medical times Branch daily. acetaminoph 2020-0 Yes [id number] 1000mg Take 2 Univers en (TYLENOL 2-07 tablets by it y of EXTRA 00:00: mouth [place] STRENGTH) 00 every 6 Medical 500 mg (six) Branch tablet hours. celecoxib 2020-0 Yes [id number] 200mg Take 1 Univers (CELEBREX) 2-07 capsule by ity of 200 mg 00:00: mouth 2 [place] capsule 00 (two) Medical times Branch daily with meals. gabapentin 2020-0 Yes [id number] 300mg Take 1 [facility] 300 mg 2-07 capsule by ity of capsule 00:00: mouth 3 [place] 00 (three) Medical times Branch daily. acetaminoph 2020-0 Yes [id number] 1000mg Take 2 Univers en (TYLENOL 2-07 tablets by it y of EXTRA 00:00: mouth [place] STRENGTH) 00 every 6 Medical 500 mg (six) Branch tablet hours. celecoxib 2020-0 Yes [id number] 200mg Take 1 Univers (CELEBREX) 2-07 capsule by ity of 200 mg 00:00: mouth 2 [place] capsule 00 (two) Medical times Branch daily with meals. gabapentin 2020-0 Yes [id number] 300mg Take 1 [facility] 300 mg 2-07 capsule by ity of capsule 00:00: mouth 3 [place] 00 (three) Medical times Branch daily. acetaminoph 2020-0 Yes [id number] 1000mg Take 2 Univers en (TYLENOL 2-07 tablets by it y of EXTRA 00:00: mouth [place] STRENGTH) 00 every 6 Medical 500 mg (six) Branch tablet hours. celecoxib 2020-0 Yes [id number] 200mg Take 1 Univers (CELEBREX) 2-07 capsule by ity of 200 mg 00:00: mouth 2 [place] capsule 00 (two) Medical times Branch daily with meals. gabapentin 2020-0 Yes [id number] 300mg Take 1 [facility] 300 mg 2-07 capsule by ity of capsule 00:00: mouth 3 [place] 00 (three) Medical times Branch daily. acetaminoph 2020-0 Yes [id number] 1000mg Take 2 Univers en (TYLENOL 2-07 tablets by it y of EXTRA 00:00: mouth [place] STRENGTH) 00 every 6 Medical 500 mg (six) Branch tablet hours. celecoxib 2020-0 Yes [id number] 200mg Take 1 Univers (CELEBREX) 2-07 capsule by ity of 200 mg 00:00: mouth 2 [place] capsule 00 (two) Medical times Branch daily with meals. gabapentin 2020-0 Yes [id number] 300mg Take 1 [facility] 300 mg 2-07 capsule by ity of capsule 00:00: mouth 3 [place] 00 (three) Medical times Branch daily. acetaminoph 2020-0 Yes [id number] 1000mg Take 2 Univers en (TYLENOL 2-07 tablets by it y of EXTRA 00:00: mouth [place] STRENGTH) 00 every 6 Medical 500 mg (six) Branch tablet hours. celecoxib 2020-0 Yes [id number] 200mg Take 1 Univers (CELEBREX) 2-07 capsule by ity of 200 mg 00:00: mouth 2 [place] capsule 00 (two) Medical times Branch daily with meals. gabapentin 2020-0 Yes [id number] 300mg Take 1 [facility] 300 mg 2-07 capsule by ity of capsule 00:00: mouth 3 [place] 00 (three) Medical times Branch daily. acetaminoph 2020-0 Yes [id number] 1000mg Take 2 Univers en (TYLENOL 2-07 tablets by it y of EXTRA 00:00: mouth [place] STRENGTH) 00 every 6 Medical 500 mg (six) Branch tablet hours. celecoxib 2020-0 Yes [id number] 200mg Take 1 Univers (CELEBREX) 2-07 capsule by ity of 200 mg 00:00: mouth 2 [place] capsule 00 (two) Medical times Branch daily with meals. gabapentin 2020-0 Yes [id number] 300mg Take 1 [facility] 300 mg 2-07 capsule by ity of capsule 00:00: mouth 3 [place] 00 (three) Medical times Branch daily. acetaminoph 2020-0 Yes [id number] 1000mg Take 2 Univers en (TYLENOL 2-07 tablets by it y of EXTRA 00:00: mouth [place] STRENGTH) 00 every 6 Medical 500 mg (six) Branch tablet hours. celecoxib 2020-0 Yes [id number] 200mg Take 1 Univers (CELEBREX) 2-07 capsule by ity of 200 mg 00:00: mouth 2 [place] capsule 00 (two) Medical times Branch daily with meals. gabapentin 2020-0 Yes [id number] 300mg Take 1 [facility] 300 mg 2-07 capsule by ity of capsule 00:00: mouth 3 [place] 00 (three) Medical times Branch daily. acetaminoph 2020-0 Yes [id number] 1000mg Take 2 Univers en (TYLENOL 2-07 tablets by it y of EXTRA 00:00: mouth [place] STRENGTH) 00 every 6 Medical 500 mg (six) Branch tablet hours. celecoxib 2020-0 Yes [id number] 200mg Take 1 [facility] (CELEBREX) 2-07 capsule by ity of 200 mg 00:00: mouth 2 [place] capsule 00 (two) Medical times Branch daily with meals. gabapentin 2020-0 Yes [id number] 300mg Take 1 [facility] 300 mg 2-07 capsule by ity of capsule 00:00: mouth 3 [place] 00 (three) Medical times Branch daily. acetaminoph 2020-0 Yes [id number] 1000mg Take 2 [facility] en (TYLENOL 2-07 tablets by it y of EXTRA 00:00: mouth [place] STRENGTH) 00 every 6 Medical 500 mg (six) Branch tablet hours. celecoxib 2020-0 Yes [id number] 200mg Take 1 [facility] (CELEBREX) 2-07 capsule by ity of 200 mg 00:00: mouth 2 [place] capsule 00 (two) Medical times Branch daily with meals. gabapentin 2020-0 Yes [id number] 300mg Take 1 [facility] 300 mg 2-07 capsule by ity of capsule 00:00: mouth 3 [place] 00 (three) Medical times Branch daily. acetaminoph 2020-0 Yes [id number] 1000mg Take 2 [facility] en (TYLENOL 2-07 tablets by it y of EXTRA 00:00: mouth [place] STRENGTH) 00 every 6 Medical 500 mg (six) Branch tablet hours. celecoxib 2020-0 Yes [id number] 200mg Take 1 [facility] (CELEBREX) 2-07 capsule by ity of 200 mg 00:00: mouth 2 [place] capsule 00 (two) Medical times Branch daily with meals. gabapentin 2020-0 Yes [id number] 300mg Take 1 [facility] 300 mg 2-07 capsule by ity of capsule 00:00: mouth 3 [place] 00 (three) Medical times Branch daily. acetaminoph 2020-0 Yes [id number] 1000mg Take 2 [facility] en (TYLENOL 2-07 tablets by it y of EXTRA 00:00: mouth [place] STRENGTH) 00 every 6 Medical 500 mg (six) Branch tablet hours. celecoxib 2020-0 Yes [id number] 200mg Take 1 [facility] (CELEBREX) 2-07 capsule by ity of 200 mg 00:00: mouth 2 [place] capsule 00 (two) Medical times Branch daily with meals. gabapentin 2020-0 Yes [id number] 300mg Take 1 [facility] 300 mg 2-07 capsule by ity of capsule 00:00: mouth 3 [place] 00 (three) Medical times Branch daily. acetaminoph 2020-0 Yes [id number] 1000mg Take 2 [facility] en (TYLENOL 2-07 tablets by it y of EXTRA 00:00: mouth [place] STRENGTH) 00 every 6 Medical 500 mg (six) Branch tablet hours. celecoxib 2020-0 Yes [id number] 200mg Take 1 [facility] (CELEBREX) 2-07 capsule by ity of 200 mg 00:00: mouth 2 [place] capsule 00 (two) Medical times Branch daily with meals. gabapentin 2020-0 Yes [id number] 300mg Take 1 [facility] 300 mg 2-07 capsule by ity of capsule 00:00: mouth 3 [place] 00 (three) Medical times Branch daily. acetaminoph 2020-0 Yes [id number] 1000mg Take 2 [facility] en (TYLENOL 2-07 tablets by it y of EXTRA 00:00: mouth [place] STRENGTH) 00 every 6 Medical 500 mg (six) Branch tablet hours. celecoxib 2020-0 Yes [id number] 200mg Take 1 [facility] (CELEBREX) 2-07 capsule by ity of 200 mg 00:00: mouth 2 [place] capsule 00 (two) Medical times Branch daily with meals. gabapentin 2020-0 Yes [id number] 300mg Take 1 [facility] 300 mg 2-07 capsule by ity of capsule 00:00: mouth 3 [place] 00 (three) Medical times Branch daily. acetaminoph 2020-0 Yes [id number] 1000mg Take 2 [facility] en (TYLENOL 2-07 tablets by it y of EXTRA 00:00: mouth [place] STRENGTH) 00 every 6 Medical 500 mg (six) Branch tablet hours. celecoxib 2020-0 Yes [id number] 200mg Take 1 [facility] (CELEBREX) 2-07 capsule by ity of 200 mg 00:00: mouth 2 [place] capsule 00 (two) Medical times Branch daily with meals. gabapentin 2020-0 Yes [id number] 300mg Take 1 [facility] 300 mg 2-07 capsule by ity of capsule 00:00: mouth 3 [place] 00 (three) Medical times Branch daily. acetaminoph 2020-0 Yes [id number] 1000mg Take 2 [facility] en (TYLENOL 2-07 tablets by it y of EXTRA 00:00: mouth [place] STRENGTH) 00 every 6 Medical 500 mg (six) Branch tablet hours. celecoxib 2020-0 Yes [id number] 200mg Take 1 [facility] (CELEBREX) 2-07 capsule by ity of 200 mg 00:00: mouth 2 [place] capsule 00 (two) Medical times Branch daily with meals. gabapentin 2020-0 2020- No [id number] 300mg Take 1 [facility] 300 mg 2-07 03-27 capsule by ity of capsule 00:00: 00:00 mouth 3 [place] 00 :00 (three) Medical times Branch daily. acetaminoph 2020- 2020- No [id number] 1000mg Take 2 [facility] en (TYLENOL 11-29 tablets by i ty of EXTRA 00:00: 00:00 mouth [place] STRENGTH) 00 :00 every 6 Medical 500 mg (six) Branch tablet hours. celecoxib 2019- 2020- No [id number] 200mg Take 1 [facility] (CELEBREX) 11-29 capsule by it y of 200 mg 00:00: 00:00 mouth 2 [place] capsule 00 :00 (two) Medical times Branch daily with meals. gabapentin 2019- 2020- No [id number] 300mg Take 1 [facility] 300 mg 11-29 capsule by ity of capsule 00:00: 00:00 mouth 3 [place] 00 :00 (three) Medical times Branch daily. acetaminoph 2019-2019- No [id number] 1000mg Take 2 [facility] en (TYLENOL 11-29 tablets by i ty of EXTRA 00:00: 00:00 mouth [place] STRENGTH) 00 :00 every 6 Medical 500 mg (six) Branch tablet hours. celecoxib 2019- 2020- No [id number] 200mg Take 1 [facility] (CELEBREX) 11-29 capsule by it y of 200 mg 00:00: 00:00 mouth 2 [place] capsule 00 :00 (two) Medical times Branch daily with meals. gabapentin 2019- 2020- No [id number] 300mg Take 1 [facility] 300 mg 11-29 capsule by ity of capsule 00:00: 00:00 mouth 3 [place] 00 :00 (three) Medical times Branch daily. acetaminoph 2020- 2020- No [id number] 1000mg Take 2 [facility] en (TYLENOL 11-29 tablets by i ty of EXTRA 00:00: 00:00 mouth [place] STRENGTH) 00 :00 every 6 Medical 500 mg (six) Branch tablet hours. celecoxib 2020- 2020- No [id number] 200mg Take 1 [facility] (CELEBREX) 11-29 capsule by it y of 200 mg 00:00: 00:00 mouth 2 [place] capsule 00 :00 (two) Medical times Branch daily with meals. gabapentin 2019-0 2020- No [id number] 300mg Take 1 [facility] 300 mg 11-29 capsule by ity of capsule 00:00: 00:00 mouth 3 [place] 00 :00 (three) Medical times Branch daily. acetaminoph 2019-2019- No [id number] 1000mg Take 2 [facility] en (TYLENOL 11-29 tablets by i ty of EXTRA 00:00: 00:00 mouth [place] STRENGTH) 00 :00 every 6 Medical 500 mg (six) Branch tablet hours. celecoxib 2019- No [id number] 200mg Take 1 [facility] (CELEBREX) 11-29 capsule by it y of 200 mg 00:00: 00:00 mouth 2 [place] capsule 00 :00 (two) Medical times Branch daily with meals. traMADol 50 2019-0 Yes [id number] 50mg Take 1 [facility] mg tablet -28 tablet by ity o f 00:00: mouth [place] 00 every 8 Medical (eight) Branch hours as needed (pain). traMADol 50 2019-0 Yes [id number] 50mg Take 1 [facility] mg tablet 1-28 tablet by ity o f 00:00: mouth [place] 00 every 8 Medical (eight) Branch hours as needed (pain). traMADol 50 2019-0 Yes [id number] 50mg Take 1 [facility] mg tablet 1-28 tablet by ity o f 00:00: mouth [place] 00 every 8 Medical (eight) Branch hours as needed (pain). traMADol 50 2019-0 2020- No [id number] 50mg Take 1 [facility] mg tablet -20 12- tablet by ity of 00:00: 00:00 mouth [place] 00 :00 every 8 Medical (eight) Branch hours as needed (pain). traMADol 50 2019-0 2020- No [id number] 50mg Take 1 [facility] mg tablet -20 12- tablet by ity of 00:00: 00:00 mouth [place] 00 :00 every 8 Medical (eight) Branch hours as needed (pain). traMADol 50 2019-0 2020- No [id number] 50mg Take 1 [facility] mg tablet -20 12- tablet by ity of 00:00: 00:00 mouth [place] 00 :00 every 8 Medical (eight) Branch hours as needed (pain). cefTRIAXone 2019-0 2020- No 250mg 250 mg, U nivers (ROCEPHIN) 1-25 -25 Intramuscu it y of injection 01:00: 00:05 lar, ONCE, [place] 250 mg 00 :00 1 dose, Medical Fri Branch 11/15/19 at 1900, [place]
Re ason for Anti-Infec tive: Empiric Therapy for Suspected Infection< br>Empiric Therapy Site: Pelvic
Duration of therapy: 72 hours cefTRIAXone 2019-0 2020- No 250mg Univ ers (ROCEPHIN) 11-16 ity of injection 01:00: 00:05 [place] 250 mg 00 :00 Medical Branch cefTRIAXone 2020-0 2020- No 250mg 250 mg, U nivers (ROCEPHIN) 11-16 Intramuscu it y of injection 01:00: 00:05 lar, ONCE, [place] 250 mg 00 :00 1 dose, Medical Fri Branch 11/15/19 at 1900, [place]
Re ason for Anti-Infec tive: Empiric Therapy for Suspected Infection< br>Empiric Therapy Site: Pelvic
Duration of therapy: 72 hours cefTRIAXone 2019- 2020- No 250mg Univ ers (ROCEPHIN) 11-16 ity of injection 01:00: 00:05 [place] 250 mg 00 :00 Medical Branch medroxyPROG 2019- No 150mg 150 mg, U nivers ESTERone 11-16 Intramuscu ity of (DEPO-PROVE 00:30: 23:00 lar, ONCE, [place] RA) 00 :00 1 dose, Medical injection Fri Branch 150 mg 11/15/19 at 1830, Routine ketorolac 2019- No 60mg 60 mg, Unive rs (TORADOL) 11-16 Intramuscu ity of injection 00:30: 23:15 lar, ONCE, [place] 60 mg 00 :00 1 dose, Medical Fri Branch 11/15/19 at 1830, Routine
membership counselor approving Restricted medication : SONDRA CHAVIRA ketorolac 2019- 2020- No 60mg Univers (TORADOL) 11-16 ity of injection 00:30: 23:15 [place] 60 mg 00 :00 Medical Branch medroxyPROG 2020- No 150mg Univ ers ESTERone 11-16 ity of (DEPO-PROVE 00:30: 23:00 [place] RA) 00 :00 Medical injection Branch 150 mg medroxyPROG 2019-0 2020- No 150mg 150 mg, U nivers ESTERone 11-16 Intramuscu ity of (DEPO-PROVE 00:30: 23:00 lar, ONCE, [place] RA) 00 :00 1 dose, Medical injection Fri Branch 150 mg 11/15/19 at 1830, Routine ketorolac 2019-2019- No 60mg 60 mg, Unive rs (TORADOL) 11-16 Intramuscu ity of injection 00:30: 23:15 lar, ONCE, [place] 60 mg 00 :00 1 dose, Medical Fri Branch 11/15/19 at 1830, Routine
membership counselor approving Restricted medication : JOSE CARLOSSONDRA [place] ketorolac 2019- 2020- No 60mg [facility] (TORADOL) 11-16 ity of injection 00:30: 23:15 [place] 60 mg 00 :00 Medical Branch medroxyPROG 2019-0 2020- No 150mg Univ ers ESTERone 11-16 ity of (DEPO-PROVE 00:30: 23:00 [place] RA) 00 :00 Medical injection Branch 150 mg plecanatide 2020-0 2020- No Take by U lily (TRULANCE) 11-15 mouth. ity of 3 mg Tab 23:52: 00:00 [place] 25 :00 Medical Branch plecanatide 2020-0 2020- No Take by U jakers (TRULANCE) 11-15 mouth. ity of 3 mg Tab 23:52: 00:00 [place] 25 :00 Medical Branch doxycycline 2020-0 Yes [id number] 100mg Take 1 [facility] 100 mg 1-24 tablet by ity of tablet 00:00: mouth 2 (two) Medical times Branch daily. doxycycline 2020-0 Yes [id number] 100mg Take 1 [facility] 100 mg 1-24 tablet by ity of tablet 00:00: mouth 2 (two) Medical times Branch daily. doxycycline 2020-0 Yes [id number] 100mg Take 1 [facility] 100 mg 1-24 tablet by ity of tablet 00:00: mouth 2 (two) Medical times Branch daily. doxycycline 2020-0 Yes [id number] 100mg Take 1 [facility] 100 mg 1-24 tablet by ity of tablet 00:00: mouth 2 [place] 00 (two) Medical times Branch daily. doxycycline 2020-0 Yes [id number] 100mg Take 1 [facility] 100 mg 1-24 tablet by ity of tablet 00:00: mouth 2 [place] 00 (two) Medical times Branch daily. doxycycline 2020-0 Yes [id number] 100mg Take 1 [facility] 100 mg 1-24 tablet by ity of tablet 00:00: mouth 2 [place] 00 (two) Medical times Branch daily. doxycycline 2020-0 Yes [id number] 100mg Take 1 [facility] 100 mg 1-24 tablet by ity of tablet 00:00: mouth 2 [place] 00 (two) Medical times Branch daily. doxycycline 2020-0 Yes [id number] 100mg Take 1 [facility] 100 mg 1-24 tablet by ity of tablet 00:00: mouth 2 [place] 00 (two) Medical times Branch daily. doxycycline 2020-0 Yes [id number] 100mg Take 1 [facility] 100 mg 1-24 tablet by ity of tablet 00:00: mouth 2 [place] 00 (two) Medical times Branch daily. doxycycline 2020-0 2020- No [id number] 100mg Take 1 [facility] 100 mg 1-24 02-07 tablet by ity of tablet 00:00: 00:00 mouth 2 [place] 00 :00 (two) Medical times Branch daily. doxycycline 2020-0 2020- No [id number] 100mg Take 1 [facility] 100 mg 1-24 02-07 tablet by ity of tablet 00:00: 00:00 mouth 2 [place] 00 :00 (two) Medical times Branch daily. doxycycline 2020-0 2020- No [id number] 100mg Take 1 [facility] 100 mg 1-24 02-07 tablet by ity of tablet 00:00: 00:00 mouth 2 [place] 00 :00 (two) Medical times Branch daily. medroxyPROG 2018- 2019- No 150mg Univ ers ESTERone 06-07 ity of (DEPO-PROVE 16:30: 15:23 [place] RA) 00 :00 Medical injection Branch 150 mg medroxyPROG 2018- 2019- No 150mg 150 mg, U nivers ESTERone 06-07 Intramuscu ity of (DEPO-PROVE 16:30: 15:23 lar, ONCE, [place] RA) 00 :00 1 dose, Medical injection Fri Branch 150 mg 06/07/19 at 1130, Routine plecanatide 2019-0 Yes Take by Un olayinka (TRULANCE) 8-16 mouth. ity of 3 mg Tab 15:15: [place] [address] Medical Branch plecanatide 2019-0 Yes Take by Un olayinka (TRULANCE) 8-16 mouth. ity of 3 mg Tab 15:15: [place] [address] Medical Branch plecanatide 2018-0 Yes Take by Un olayinka (TRULANCE) 8-16 mouth. ity of 3 mg Tab 15:15: [place] [address] Medical Branch plecanatide 2018-0 Yes Take by Un olayinka (TRULANCE) 8-16 mouth. ity of 3 mg Tab 15:15: [place] [address] Medical Branch linaCLOtide 0 Yes Univer s (LINZESS) 7-20 ity of 72 mcg Cap 00:00: [place] [facility] linaCLOtide 2018-0 Yes Univer s (LINZESS) 7-20 ity of 72 mcg Cap 00:00: [place] [facility] linaCLOtide 2019-0 Yes Univer s (LINZESS) 7-20 ity of 72 mcg Cap 00:00: [place] [address] Medical Branch linaCLOtide 2018-0 Yes Univer s (LINZESS) 7-20 ity of 72 mcg Cap 00:00: [place] [address] Medical Branch linaCLOtide 2019-0 Yes Univer s (LINZESS) 7-20 ity of 72 mcg Cap 00:00: [place] [address] Medical Branch linaCLOtide 2019-0 Yes Univer s (LINZESS) 7-20 ity of 72 mcg Cap 00:00: [place] [address] Medical Branch linaCLOtide 2019-0 Yes Univer s (LINZESS) 7-20 ity of 72 mcg Cap 00:00: [place] [facility] linaCLOtide 2019-0 Yes Univer s (LINZESS) 7-20 ity of 72 mcg Cap 00:00: [place] [address] Medical Branch linaCLOtide 2019-0 Yes Univer s (LINZESS) 7-20 ity of 72 mcg Cap 00:00: [place] [address] Medical Branch linaCLOtide 2019-0 Yes Univer s (LINZESS) 7-20 ity of 72 mcg Cap 00:00: [place] [address] Medical Branch linaCLOtide 2019-0 Yes Univer s (LINZESS) 7-20 ity of 72 mcg Cap 00:00: [place] [facility] linaCLOtide 2019-0 Yes Univer s (LINZESS) 7-20 ity of 72 mcg Cap 00:00: [place] [address] Medical Branch linaCLOtide 2019-0 Yes Univer s (LINZESS) 7-20 ity of 72 mcg Cap 00:00: [place] [address] Medical Branch linaCLOtide 2019-0 Yes Univer s (LINZESS) 7-20 ity of 72 mcg Cap 00:00: [place] [address] Medical Branch linaCLOtide 2019-0 Yes Univer s (LINZESS) 7-20 ity of 72 mcg Cap 00:00: [place] [address] Medical Branch linaCLOtide 2019-0 Yes Univer s (LINZESS) 7-20 ity of 72 mcg Cap 00:00: [place] [address] Medical Branch linaCLOtide 2019-0 Yes Univer s (LINZESS) 7-20 ity of 72 mcg Cap 00:00: [place] [address] Medical Branch linaCLOtide 2019-0 Yes Univer s (LINZESS) 7-20 ity of 72 mcg Cap 00:00: [place] [address] Medical Branch linaCLOtide 2019-0 Yes Univer s (LINZESS) 7-20 ity of 72 mcg Cap 00:00: [place] [address] Medical Branch linaCLOtide 2019-0 Yes Univer s (LINZESS) 7-20 ity of 72 mcg Cap 00:00: [place] [address] Medical Branch linaCLOtide 2019-0 Yes Univer s (LINZESS) 7-20 ity of 72 mcg Cap 00:00: [place] [address] Medical Branch linaCLOtide 2019-0 Yes Univer s (LINZESS) 7-20 ity of 72 mcg Cap 00:00: [place] [address] Medical Branch linaCLOtide 2019-0 Yes Univer s (LINZESS) 7-20 ity of 72 mcg Cap 00:00: [place] [address] Medical Branch linaCLOtide 2019-0 Yes Univer s (LINZESS) 7-20 ity of 72 mcg Cap 00:00: [place] [address] Medical Branch linaCLOtide 2019-0 Yes Univer s (LINZESS) 7-20 ity of 72 mcg Cap 00:00: [place] [address] Medical Branch linaCLOtide 2019-0 Yes Univer s (LINZESS) 7-20 ity of 72 mcg Cap 00:00: [place] [address] Medical Branch linaCLOtide 2019-0 Yes Univer s (LINZESS) 7-20 ity of 72 mcg Cap 00:00: [place] [address] Medical Branch linaCLOtide 2019-0 Yes Univer s (LINZESS) 7-20 ity of 72 mcg Cap 00:00: [place] [address] Medical Branch linaCLOtide 2019-0 Yes Univer s (LINZESS) 7-20 ity of 72 mcg Cap 00:00: [place] [address] Medical Branch linaCLOtide 2019-0 Yes Univer s (LINZESS) 7-20 ity of 72 mcg Cap 00:00: [place] [address] Medical Branch linaCLOtide 2019-0 Yes Univer s (LINZESS) 7-20 ity of 72 mcg Cap 00:00: [place] [address] Medical Branch linaCLOtide 2019-0 Yes Univer s (LINZESS) 7-20 ity of 72 mcg Cap 00:00: [place] [address] Medical Branch linaCLOtide 2019-0 Yes Univer s (LINZESS) 7-20 ity of 72 mcg Cap 00:00: [place] [address] Medical Branch linaCLOtide 2019-0 Yes Univer s (LINZESS) 7-20 ity of 72 mcg Cap 00:00: [place] [address] Medical Branch linaCLOtide 2019-0 Yes Univer s (LINZESS) 7-20 ity of 72 mcg Cap 00:00: [place] [address] Medical Branch linaCLOtide 2019-0 Yes Univer s (LINZESS) 7-20 ity of 72 mcg Cap 00:00: [place] [address] Medical Branch linaCLOtide 2019-0 Yes Univer s (LINZESS) 7-20 ity of 72 mcg Cap 00:00: [place] [address] Medical Branch linaCLOtide 2019-0 Yes Univer s (LINZESS) 7-20 ity of 72 mcg Cap 00:00: [place] [address] Medical Branch linaCLOtide 2019-0 Yes Univer s (LINZESS) 7-20 ity of 72 mcg Cap 00:00: [place] [address] Medical Branch linaCLOtide 2019-0 Yes Univer s (LINZESS) 7-20 ity of 72 mcg Cap 00:00: [place] [address] Medical Branch linaCLOtide 2019-0 Yes Univer s (LINZESS) 7-20 ity of 72 mcg Cap 00:00: [place] [address] Medical Branch linaCLOtide 2019-0 Yes Univer s (LINZESS) 7-20 ity of 72 mcg Cap 00:00: [place] [address] Medical Branch linaCLOtide 2019-0 Yes Univer s (LINZESS) 7-20 ity of 72 mcg Cap 00:00: Medical Branch linaCLOtide Yes Univer s (LINZESS) 7-20 ity of 72 mcg Cap 00:00: Medical Branch linaCLOtide Yes Univer s (LINZESS) 7-20 ity of 72 mcg Cap 00:00: Medical Branch linaCLOtide Yes Univer s (LINZESS) 7-20 ity of 72 mcg Cap 00:00: Medical Branch linaCLOtide Yes Univer s (LINZESS) 7-20 ity of 72 mcg Cap 00:00: Medical Branch linaCLOtide Yes Univer s (LINZESS) 7-20 ity of 72 mcg Cap 00:00: Medical Branch metroNIDAZO Yes [id number] 500mg Take 1 [facility] LE (FLAGYL) 6-26 tablet by ity of 500 mg 00:00: mouth 2 [place] tablet 00 (two) Medical times Branch daily. metroNIDAZO Yes [id number] 500mg Take 1 [facility] LE (FLAGYL) 6-26 tablet by ity of 500 mg 00:00: mouth 2 [place] tablet 00 (two) Medical times Branch daily. metroNIDAZO Yes [id number] 500mg Take 1 [facility] LE (FLAGYL) 6-26 tablet by ity of 500 mg 00:00: mouth 2 [place] tablet 00 (two) Medical times Branch daily. metroNIDAZO Yes [id number] 500mg Take 1 [facility] LE (FLAGYL) 6-26 tablet by ity of 500 mg 00:00: mouth 2 [place] tablet 00 (two) Medical times Branch daily. metroNIDAZO 2020- No [id number] 500mg Take 1 [facility] LE (FLAGYL) 6-26 01-24 tablet by it y of 500 mg 00:00: 00:00 mouth 2 [place] tablet 00 :00 (two) Medical times Branch daily. metroNIDAZO 2020- No [id number] 500mg Take 1 [facility] LE (FLAGYL) 6-26 -24 tablet by it y of 500 mg 00:00: 00:00 mouth 2 [place] tablet 00 :00 (two) Medical times Branch daily. OMEPRAZOLE Yes 40mg Take 40 mg U nivers ORAL 6-19 by mouth. ity of 15:31: [place] [address] Medical Branch ACETAMINOPH Yes Take by Un olayinka EN EXTRA 6-19 mouth. ity of STRENGTH 15:31: [place] [address] Medical Branch OMEPRAZOLE 0 Yes 40mg Take 40 mg U nivers ORAL 6-19 by mouth. ity of 15:31: [place] [address] Medical Branch ACETAMINOPH Yes Take by Un olayinka EN EXTRA 6-19 mouth. ity of STRENGTH 15:31: [place] [address] Medical Branch OMEPRAZOLE Yes 40mg Take 40 mg U nivers ORAL 6-19 by mouth. ity of 15:31: [place] [address] Medical Branch ACETAMINOPH Yes Take by Un olayinka EN EXTRA 6-19 mouth. ity of STRENGTH 15:31: [place] [address] Medical Branch OMEPRAZOLE Yes 40mg Take 40 mg U nivers ORAL 6-19 by mouth. ity of 15:31: [place] [address] Medical Printer ACETAMINOPH Yes Take by Un olayinka EN EXTRA 6-19 mouth. ity of STRENGTH 15:31: [place] [address] Medical Branch OMEPRAZOLE Yes 40mg Take 40 mg U nivers ORAL 6-19 by mouth. ity of 15:31: [place] [address] Medical Printer ACETAMINOPH Yes Take by Un olayinka EN EXTRA 6-19 mouth. ity of STRENGTH 15:31: [place] [address] Medical Branch OMEPRAZOLE Yes 40mg Take 40 mg U nivers ORAL 6-19 by mouth. ity of 15:31: [address] ACETAMINOPH Yes Take by Un olayinka EN EXTRA 6-19 mouth. ity of STRENGTH 15:31: [place] [address] Medical Branch OMEPRAZOLE Yes 40mg Take 40 mg U nivers ORAL 6-19 by mouth. ity of 15:31: [place] [address] Medical Branch ACETAMINOPH Yes Take by Un olayinka EN EXTRA 6-19 mouth. ity of STRENGTH 15:31: [place] [address] Medical Branch OMEPRAZOLE 0 Yes 40mg Take 40 mg U nivers ORAL 6-19 by mouth. ity of 15:31: [address] ACETAMINOPH Yes Take by Un olayinka EN EXTRA 6-19 mouth. ity of STRENGTH 15:31: [address] OMEPRAZOLE 2019-0 Yes 40mg Take 40 mg U nivers ORAL 6-19 by mouth. ity of 15:31: [address] OMEPRAZOLE 2018-0 Yes 40mg Take 40 mg U nivers ORAL 6-19 by mouth. ity of 15:31: [address] OMEPRAZOLE 2018-0 Yes 40mg Take 40 mg U nivers ORAL 6-19 by mouth. ity of 15:31: [address] OMEPRAZOLE 2018-0 Yes 40mg Take 40 mg U nivers ORAL 6-19 by mouth. ity of 15:31: [address] OMEPRAZOLE 2018-0 Yes 40mg Take 40 mg U nivers ORAL 6-19 by mouth. ity of 15:31: [address] OMEPRAZOLE 2018-0 Yes 40mg Take 40 mg U nivers ORAL 6-19 by mouth. ity of 15:31: [address] OMEPRAZOLE 0 Yes 40mg Take 40 mg U nivers ORAL 6-19 by mouth. ity of 15:31: [address] OMEPRAZOLE 0 Yes 40mg Take 40 mg U nivers ORAL 6-19 by mouth. ity of 15:31: [address] OMEPRAZOLE Yes 40mg Take 40 mg U nivers ORAL 6-19 by mouth. ity of 15:31: [address] OMEPRAZOLE 0 Yes 40mg Take 40 mg U nivers ORAL 6-19 by mouth. ity of 15:31: [address] OMEPRAZOLE 0 Yes 40mg Take 40 mg U nivers ORAL 6-19 by mouth. ity of 15:31: [address] OMEPRAZOLE 2018-0 Yes 40mg Take 40 mg U nivers ORAL 6-19 by mouth. ity of 15:31: [address] ACETAMINOPH 0 Yes Take by Un olayinka EN EXTRA 6-19 mouth. ity of STRENGTH 15:31: [address] OMEPRAZOLE 2018-0 Yes 40mg Take 40 mg U nivers ORAL 6-19 by mouth. ity of 15:31: [address] ACETAMINOPH 0 Yes Take by Un olayinka EN EXTRA 6-19 mouth. ity of STRENGTH 15:31: [address] OMEPRAZOLE 2018-0 Yes 40mg Take 40 mg U nivers ORAL 6-19 by mouth. ity of 15:31: [address] ACETAMINOPH Yes Take by Un olayinka EN EXTRA 6-19 mouth. ity of STRENGTH 15:31: [address] OMEPRAZOLE Yes 40mg Take 40 mg U nivers ORAL 6-19 by mouth. ity of 15:31: [address] ACETAMINOPH Yes Take by Un olayinka EN EXTRA 6-19 mouth. ity of STRENGTH 15:31: [address] OMEPRAZOLE Yes 40mg Take 40 mg U nivers ORAL 6-19 by mouth. ity of 15:31: [address] ACETAMINOPH Yes Take by Un olayinka EN EXTRA 6-19 mouth. ity of STRENGTH 15:31: [address] Diazepam Diazepam Yes Benny 1 tablet C ommon Smart as needed [facility] Zozescaleb Yes Benny 1 capsule Co mmon Smart [facility] Omeprazole Omeprazole Yes Benny 1 tablet Common Smart [facility] Amitriptyli Amitriptyli Yes Benny 1 tablet Common ne HCl ne HCl Smart at bedtime Spir it - [facility] Trazodone Trazodone Yes Benny Take 1/2 Common HCl HCl Smart tab QHS [facility] Imitrex Imitrex Yes Benny 1 tablet Com mon Smart at least 2 [facility] hours [facility] No known [facility]s Vital Name Observation Time Observation Value Comments Source Systolic blood 2021-08-04 19:00:00 125 mm[Hg] Univer sity of pressure [facility] Diastolic blood 2021-08-04 19:00:00 85 mm[Hg] Unive rsity of pressure [facility] Heart rate 2021-08-04 19:00:00 69 /min Universi ty [facility] Respiratory rate 2021-08-04 19:00:00 16 /[facility] 2021-08-04 19:00:00 97 /min [facility] Arterial blood by [facility] Pulse oximetry Branch Body temperature 2021-08-04 17:00:00 36.72 Liya Univ ersity of [facility] Body height 2021-08-04 16:09:00 160 cm Universi ty of [facility] Body weight 2021-08-04 16:09:00 72.576 kg Universi ty of [facility] BMI 2021-08-04 16:09:00 28.34 kg/m2 Universi ty of [facility] Systolic blood 2021-05-20 17:04:00 134 mm[Hg] Univer sity of pressure [facility] Diastolic blood 2021-05-20 17:04:00 87 mm[Hg] Unive rsity of pressure [facility] Heart rate 2021-05-20 17:04:00 101 /min Universi ty of [facility] Body temperature 2021-05-20 17:04:00 37.11 Liya Univ ersity of [facility] Respiratory rate 2021-05-20 17:04:00 18 /min Univ ersity of [facility] Body weight 2021-05-20 17:04:00 81.647 kg Universi ty of [place] [facility] BMI 2021-05-20 17:04:00 31.89 kg/m2 Universi ty [facility] [place] [facility] Oxygen saturation in 2021-05-20 17:04:00 98 /min University of Arterial blood by [facility] Pulse oximetry Branch Systolic blood 2021-01-21 21:10:00 124 mm[Hg] Univer sity of pressure [facility] Diastolic blood 2021-01-21 21:10:00 63 mm[Hg] Unive rsity of pressure [facility] Heart rate 2021-01-21 21:10:00 98 /min Universi ty of [facility] Body temperature 2021-01-21 21:10:00 37.78 Liya Univ ersity of [facility] Respiratory rate 2021-01-21 21:10:00 20 /min Univ ersity of [facility] Oxygen saturation in 2021-01-21 21:10:00 100 /min University of Arterial blood by [facility] Pulse oximetry Branch Body weight 2021-01-21 18:05:00 81.647 kg Universi ty of [facility] BMI 2021-01-21 18:05:00 31.89 kg/m2 [facility] Systolic blood 2020-10-20 15:50:00 123 mm[Hg] Univer sity of pressure [facility] Diastolic blood 2020-10-20 15:50:00 81 mm[Hg] Unive rsity of pressure [facility] Heart rate 2020-10-20 15:50:00 88 /min [facility]i ty [facility] Respiratory rate 2020-10-20 15:50:00 18 /min Univ ersity of [facility] Oxygen saturation in 2020-10-20 15:50:00 97 /min University of Arterial blood by [place] [facility] Pulse oximetry Branch Body temperature 2020-10-20 13:37:00 36.22 Liya Univ ersity of [facility] Body height 2020-10-20 13:37:00 160 cm [facility] Body weight 2020-10-20 13:37:00 86.183 kg [facility] BMI 2020-10-20 13:37:00 33.66 kg/m2 [facility] Systolic blood 2020-07-15 23:05:00 148 mm[Hg] Univer sity of pressure [facility] Diastolic blood 2020-07-15 23:05:00 100 mm[Hg] Unive rsity of pressure [facility] Heart rate 2020-07-15 23:05:00 88 /min [facility] Body temperature 2020-07-15 23:05:00 37.17 Liya Univ ersity of [facility] Respiratory rate 2020-07-15 23:05:00 18 /min Univ ersity of [facility] Oxygen saturation in 2020-07-15 23:05:00 99 /min University of Ar[place]ial blood by [place] [facility] Pulse oximetry Branch Body weight 2020-07-15 21:28:00 77.111 kg [facility] BMI 2020-07-15 21:28:00 30.11 kg/m2 [facility] Systolic blood 2020-01-03 19:26:00 121 mm[Hg] Univer sity of pressure [facility] Diastolic blood 2020-01-03 19:26:00 74 mm[Hg] Unive rsity of pressure [facility] Heart rate 2020-01-03 19:26:00 85 /min [facility] Respiratory rate 2020-01-03 19:26:00 16 /min Univ ersity of [facility] Oxygen saturation in 2020-01-03 19:26:00 98 /min University of Arterial blood by [facility] Pulse oximetry Printer Body temperature 2020-01-03 14:01:00 37.22 Liya Univ ersity of [facility] Body height 2020-01-03 14:01:00 160 cm Universi ty of [facility] Body weight 2020-01-03 14:01:00 77.111 kg Universi ty of [facility] BMI 2020-01-03 14:01:00 30.11 kg/m2 Universi ty of [facility] Systolic blood 2019-11-29 23:03:00 127 mm[Hg] Univer sity of pressure [facility] Diastolic blood 2019-11-29 23:03:00 96 mm[Hg] Unive rsity of pressure [facility] Heart rate 2019-11-29 23:03:00 86 /min Universi ty of [facility] Body temperature 2019-11-29 23:03:00 36.83 Liya Univ ersity of [facility] Respiratory rate 2019-11-29 23:03:00 18 /min Univ ersity of [facility] Body height 2019-11-29 23:03:00 160 cm [facility] [place] [facility]inter Body weight 2019-11-29 23:03:00 76.658 kg Universi ty of [facility] BMI 2019-11-29 23:03:00 29.94 kg/m2 Universi ty of [facility] Systolic blood 2019-11-15 22:16:00 129 mm[Hg] Univer sity of pressure [facility] Diastolic blood 2019-11-15 22:16:00 86 mm[Hg] Unive rsity of pressure [facility] Heart rate 2019-11-15 22:16:00 82 /min Universi ty of [facility] Body temperature 2019-11-15 22:16:00 36.78 Liya Univ ersity of [facility] Respiratory rate 2019-11-15 22:16:00 18 /min Univ ersity of [facility] Body height 2019-11-15 22:16:00 160.7 cm Universi ty of [facility] Body weight 2019-11-15 22:16:00 77.111 kg Universi ty of [facility] BMI 2019-11-15 22:16:00 29.88 kg/m2 Universi ty of [facility] Respiratory rate 2019-06-07 15:13:00 20 /min [facility] Body height 2019-06-07 15:13:00 160 cm [facility] Body weight 2019-06-07 15:13:00 67.495 kg [facility] BMI 2019-06-07 15:13:00 26.36 kg/m2 [facility] Systolic blood 2019-06-07 15:13:00 110 mm[facility]Hg[facility] Diastolic blood 2019-06-07 15:13:00 72 mm[Hg] [facility] 2019-06-07 15:13:00 77 /min [facility] Body temperature 2019-06-07 15:13:00 36.83 Liya [facility] Procedures Procedure Date / Time Performing Clinician Source Performed CT ABDOMEN PELVIS W 2021-08-04 16:53:22 MooreArmond ovalles [facility] LIPASE 2021-08-04 16:37:00 Moore, [facility] COMP. METABOLIC PANEL 2021-08-04 16:37:00 Hampton Armond [facility] ([id number]) [facility] CBC WITH DIFF 2021-08-04 16:37:00 [facility] URINALYSIS 2021-08-04 16:37:00 [facility] CONSENT/REFUSAL FOR 2021-08-04 15:58:11 [facility] Name Medical Printer CT KNEE RIGHT WO 2021-05-20 19:15:50 Blaine Perez [facility] XR KNEE 3 VW RIGHT 2021-05-20 17:34:16 Sanede Guillen [facility] NOTICE OF PRIVACY 2021-05-20 17:00:21 Doctor Unassigned, No [facility] PRACTICES [facility] Branch CONSENT/REFUSAL FOR 2021-05-20 17:00:06 Doctor [facility], [facility] Name [facility] URINALYSIS 2021-01-21 20:55:00 Sandee Guillen [facility] BASIC METABOLIC PANEL 2021-01-21 19:37:00 Sandee Guillen [facility] (NA, K, CL, CO2, Medical Branch GLUCOSE, BUN, CREATININE, CA) CBC WITH DIFF 2021-01-21 19:37:00 Sandee Guillen [facility] XR CHEST 1 VW 2021-01-21 18:33:12 Sandee Guillen [facility] COVID-19 (ID NOW RAPID 2021-01-21 18:09:00 Sandee [facility]ill[facility] Medical Branch CONSENT/REFUSAL FOR 2021-01-21 17:52:09 Doctor Unassigned, No [facility]REAT[facility] Name [facility] CT ANGIOGRAM NECK 2020-10-20 14:59:45 Aris Hill [facility] POCT TEST 2020-10-20 14:00:00 Aris Hill [facility] HEPATIC FUNCTION PANEL 2020-10-20 13:57:00 Aris Hill [facility] ([id number]) (ALB,T.PRO,BILI Medical Branch T,BU/BC,ALT,AST,ALK PHOS) BASIC METABOLIC PANEL 2020-10-20 13:57:00 Aris Hill [facility] (NA, K, CL, CO2, Medical Branch GLUCOSE, BUN, CREATININE, CA) CBC WITH DIFF 2020-10-20 13:57:00 Aris Hill [place] [facility] PROTHROMBIN TIME / INR 2020-10-20 13:57:00 Aris Hill [facility] ACTIVATED PARTIAL 2020-10-20 13:57:00 Aris Hill [facility] THRMPLAS [facility] Branch NOTICE OF PRIVACY 2020-10-20 13:42:58 Doctor Unassigned, No [facility] PRACTICES Name Medical Branch CONSENT/REFUSAL FOR 2020-10-20 13:34:05 Doctor Unassigned, No [facility] DI[facility]NOS[facility] AND TREATMENT Name [facility] RAPID STREP SCREEN FOR 2020-07-15 21:57:00 Clarence Weiss [facility] GROUP A Medical Branch NOTICE OF PRIVACY 2020-07-15 21:13:13 Doctor Unassigned, No [facility] PRACTICES Name Medical Branch CONSENT/REFUSAL FOR 2020-07-15 21:12:59 Doctor Unassigned, No [facility] DIAGNOSIS AND TREATMENT [facility] LAPAROSCOPIC TOTAL 2020-01-03 14:57:00 Sondra Chavira [facility] ABDOMINAL HYSTERECTOMY [facility] CYSTOSCOPY 2020-01-03 14:57:00 Sondra Chavira [facility] SALPINGECTOMY 2020-01-03 14:57:00 Sondra Chavira [facility] BASIC METABOLIC PANEL 2020-01-03 14:28:00 [facility] (NA, K, CL, CO2, Medical Branch GLUCOSE, BUN, CREATININE, CA) CBC WITH DIFFERENTIAL 2020-01-03 [facility] 2020-01-03 14:24:00 Brent [facility] o f [facility] POCT TEST 2020-01-03 14:00:00 Keith Oliva [facility] DAY SURGERY - ADC 2020-01-03 05:01:00 Doctor Unassigned, [facility] ASSIGNMENT OF BENEFITS 2019-11-15 23:27:34 Doctor Unassigned, No [facility] POCT TEST 2019-11-15 00:00:00 Sondra Chavira [facility] Encounters Start End Encounter Admission Attending Care Care Encounter Source Date/Time Date/Time Type Type Clinicians Facility Department ID 2022-01-20 Outpatient Smart, [facility]LMLC [facility] [id number] Common 08:29:00 [id number] [facility] 2021-11-17 Outpatient Smart, [facility] [id number] Common 14:19:29 Benny [id number] [facility] 2021-11-17 Outpatient Smart, STLMLC [facility] [id number] Common 13:45:03 Benny [id number] [facility] 2021-11-17 Outpatient Smart, [facility]C [facility] [id number] Common 12:23:40 [facility] [id number] [facility] 2021-11-17 Outpatient Smart, STLMLC ST[facility] [id number] Common 12:08:39 Benny [id number] [facility] 2021-11-17 Outpatient Smart, STLMLC ST[facility] [id number] Common 11:29:40 Benny [id number] [facility] 2021-11-17 Outpatient Smart, STLMLC ST[facility] [id number] Common 11:24:43 Benny [id number] [facility] 2021-11-17 Outpatient Smart, STLMLC ST[facility] [id number] Common 11:24:07 Benny [id number] [facility] 2021-08-24 Emergency [facility] [id number] Univers 06:27[facility]23 Emergency [facility] [id number] Univers 11:45:25 [facility] 2021-08-22 Emergency [facility] [id number] Univers 10:06:23 [facility] 2021-08-21 Emergency [facility] [id number] Univers 13:31:42 [facility] 2021-08-20 Emergency [facility] [id number] Univers 19:06:29 [facility] 2021-08-19 Inpatient R SONDRA CHAVIRA [facility] FABRIZIO [id number] Univers 12:19:52 SONDRA CHAVIRA [facility] 2022-02-24 2022-02-24 ambulatory STLMLC ST[facility]C [id number] Common 00:00:00 00:00:00 [facility] 2022-01-26 2022-01-26 ambulatory STLMLC ST[facility]C [id number] Common 00:00:00 00:00:00 [facility] 2022-01-20 2022-01-20 ambulatory STLMLC STL[facility]C [id number] Common 00:00:00 00:00:00 [facility] 2022-01-20 2022-01-20 ambulatory STLMLC ST[facility]C [id number] Common 00:00:00 00:00:00 [facility] 2022-01-19 2022-01-19 ambulatory STLMLC ST[facility]C [id number] Common 00:00:00 00:00:00 [facility] 2022-01-19 2022-01-19 ambulatory STLMLC STL[facility]C [id number] Common 00:00:00 00:00:00 [facility] 2021-12-23 2021-12-23 ambulatory STLMLC ST[facility]C [id number] Common 00:00:00 00:00:00 [facility] 2021-12-23 2021-12-23 ambulatory STLMLC STL[facility]C [id number] Common 00:00:00 00:00:00 [facility] 2021-12-22 2021-12-22 ambulatory STLMLC ST[facility]C [id number] Common 00:00:00 00:00:00 [facility] 2021-12-22 2021-12-22 ambulatory STLMLC ST[facility]C [id number] Common 00:00:00 00:00:00 [facility] 2021-11-03 2021-11-03 ambulatory STLMLC ST[facility]C [id number] Common 00:00:00 00:00:00 [facility] 2021-11-02 2021-11-02 ambulatory STLMLC STL[facility]C [id number] Common 00:00:00 00:00:00 [facility] 2021-09-22 2021-09-22 ambulatory STLMLC ST[facility]C [id number] Common 00:00:00 00:00:00 [facility] 2021-08-05 2021-08-05 Outpatient STLMLC ST[facility]C [id number] Common 00:00:00 00:00:00 [facility] 2021-08-05 2021-08-05 Outpatient STLMLC STL[facility]C [id number] Common 00:00:00 00:00:00 [facility] 2021-08-04 2021-08-04 Emergency Singer [facility] [id number] Univers 11:11:00 14:06:00 Armond Collazo [id number] i Laz [id number] [facility] [id number] [place] [id number] Branch 2021-08-04 2021-08-04 Outpatient STLMLC STL[facility]C [id number] Common 00:00:00 00:00:00 [facility] 2021-08-03 2021-08-03 Outpatient STLMLC STL[facility]C [id number] Common 00:00:00 00:00:00 [facility] 2021-06-23 2021-06-23 Outpatient STLMLC STL[facility]C [id number] Common 00:00:00 00:00:00 [facility] 2021-06-08 2021-06-08 Outpatient STLMLC STL[facility]C [id number] Common 00:00:00 00:00:00 [facility] 2021-06-07 2021-06-07 Outpatient STLMLC STLMLC [id number] Common 00:00:00 00:00:00 [facility] 2021-06-03 2021-06-03 Outpatient STLMLC STLMLC [id number] Common 00:00:00 00:00:00 [facility] 2021-05-31 2021-05-31 Outpatient STLMLC STLMLC [id number] Common 00:00:00 00:00:00 [facility] 2021-05-31 2021-05-31 Outpatient STLMLC STL[facility]C [id number] Common 00:00:00 00:00:00 [facility] 2021-05-20 2021-05-20 Emergency Trev, Blaine DEMB [id number] Univers 12:07:00 16:13:00 Sydni Collazo [id number] i ty of [place] [id number] [facility] [phone] [place] [address] Branch 2021-05-20 2021-05-20 Orders Doctor PATRICIA 1.2.840.114 [id number] Univers 00:00:00 00:00:00 Only Unassigned, JAZMINE [id number] ity [place] [facility] [id number] [facility] [phone] [facility] 009 Branch 2021-05-20 2021-05-20 Outpatient STLMLC STLMLC [id number] Common 00:00:00 00:00:00 [facility] 2021-03-23 2021-03-23 Outpatient STLMLC STLMLC [id number] Common 00:00:00 00:00:00 [facility] 2021-02-25 2021-02-25 Outpatient STLMLC STLMLC [id number] Common 00:00:00 00:00:00 [facility] 2021-02-22 2021-02-22 Outpatient STLMLC STLMLC [id number] Common 00:00:00 00:00:00 [facility] 2021-02-18 2021-02-18 Outpatient STLMLC STLMLC [id number] Common 00:00:00 00:00:00 [facility] 2021-01-27 2021-01-27 Outpatient STLMLC STLMLC [id number] Common 00:00:00 00:00:00 [facility] 2021-01-27 2021-01-27 Outpatient STLMLC STLMLC [id number] Common 00:00:00 00:00:00 [facility] 2021-01-21 2021-01-21 Emergency Asad DEJOHN [id number] [id number] Univers 13:11:00 16:40:00 Sandee Collazo [id number] [facility] tania KirkRay [id number] [facility] [phone] [facility] 084 Branch 2021-01-20 2021-01-20 Outpatient STLMLC STLMLC [id number] Common 00:00:00 00:00:00 [facility] 2021-01-20 2021-01-20 Outpatient STLMLC STLMLC [id number] Common 00:00:00 00:00:00 [facility] 2021-01-11 2021-01-11 Patient Dov [facility] [id number] Univers 00:00:00 00:00:00 Outreach Tim [facility] [id number] i ty of [facility] [id number] Ally ellis [place]OD [phone] Vt dical 388 Branch 2020-12-21 2020-12-21 Outpatient STLMLC STLMLC [id number] Common 00:00:00 00:00:00 [facility] 2020-11-12 2020-11-12 Outpatient STLMLC STLMLC [id number] Common 00:00:00 00:00:00 [facility] 2020-11-12 2020-11-12 Outpatient STLMLC STLMLC [id number] Common 00:00:00 00:00:00 [facility] 2020-10-26 2020-10-26 Outpatient STLMLC STLMLC [id number] Common 00:00:00 00:00:00 [facility] 2020-10-20 2020-10-20 Emergency [facility] [id number] Univers 07:39:00 09:57:00 Aris Collazo [id number] i ty of [place] [id number] [facility] [phone] [facility] 084 Branch 2020-10-14 2020-10-14 Outpatient STLMLC STLMLC [id number] Common 00:00:00 00:00:00 [facility] 2020-10-06 2020-10-06 Outpatient STLMLC STLMLC [id number] Common 00:00:00 00:00:00 [facility] 2020-10-01 2020-10-01 Outpatient STLMLC STLMLC [id number] Common 00:00:00 00:00:00 [facility] 2020-09-21 2020-09-21 Outpatient STLMLC STLMLC [id number] Common 00:00:00 00:00:00 [facility] 2020-08-05 2020-08-05 Outpatient STLMLC STLMLC [id number] Common 00:00:00 00:00:00 [facility] 2020-08-04 2020-08-04 Outpatient STLMLC STLMLC [id number] Common 00:00:00 00:00:00 [facility] 2020-07-16 2020-07-16 Tom HernandezLi 1.2.840.114 [id number] Univers 00:00:00 00:00:00 (Out) JAZMINE [id number] it y of [facility] [id number] Jose [phone] [facility] gabriel 019 Branch 2020-07-15 2020-07-15 Emergency [facility] 1.2.840.114 [id number] [facility] 16:40:00 18:23:00 Clarence Collazo [id number] i ty [facility] [id number] [facility] [phone] [facility] gabriel 084 Branch 2020-07-15 2020-07-15 Outpatient STLMLC STLMLC [id number] Common 00:00:00 00:00:00 [facility] 2020-07-15 2020-07-15 Outpatient STLMLC STLMLC [id number] Common 00:00:00 00:00:00 [facility] 2020-07-09 2020-07-09 [facility] [id number] Common 08:20:00 08:20:[address] [facility] 2020-06-23 2020-06-23 [facility] [id number] Common 13:38:00 13:38:[address] [facility] 2020-06-08 2020-06-08 [facility] [id number] Common 16:00:00 16:00:[address] [facility] 2020-06-02 2020-06-02 Out[facility] [id number] Common 16:31:00 16:31:[address] [facility] 2020-06-02 2020-06-02 [facility] [id number] Common 08:30:00 08:30:[address] [facility] 2020-06-01 2020-06-[address] [facility] [id number] Common 10:46:00 10:46:00 [facility] 2020-04-27 2020-04-27 [facility] [id number] Common 13:00:00 13:00:[address] [facility] 2020-03-25 2020-03-25 [facility] [id number] Common 16:45:00 16:45:[address] [facility] 2020-02-26 2020-02-26 Out[facility] [id number] Common 14:15:00 14:15:[address] [facility] 2020-01-29 2020-01-29 Telephone Adum, DEMB [id number] Univers 00:00:00 00:00:00 Alyssa Collazo [id number] [id number] [phone] Vt dical nal [address] [place] [address] 2020-01-29 2020-01-29 Refill Doctor [facility] 1.2.840.114 [id number] Univers 00:00:00 00:00:00 UnassignedZay 350.1.13.10 [id number] [place] [phone] Vt dical nal [address] [place] [address] 2020-01-29 2020-01-29 Patient Doctor [facility] 1.2.840.114 [id number] Univers 00:00:00 00:00:00 Secure Msg Unassigned, Zay 350.1.13.10 [place] [id number] [place] [phone] Vt dical nal [address] [place] [address] 2020-01-29 2020-01-29 Patient Doctor [facility] 1.2.840.114 [id number] Univers 00:00:00 00:00:00 Secure Msg Unassigned, [place] [id number] [place] [id number] [place] [phone] Vt dic[address] 2020-01-29 2020-01-29 Patient Doctor [place] 1.2.840.114 [id number] Univers 00:00:00 00:00:00 Secure Msg Unassigned, [place] [id number] [place] [id number] [place] [phone] [address] 2020-01-29 2020-01-29 Patient Doctor [place] 1.2.840.114 [id number] Univers 00:00:00 00:00:00 Secure Msg Unassigned, [place] [id number] [place] [id number] [place] [phone] [address] 2020-01-17 2020-01-17 Telemedici Cait [facility] 1.2.840.114 [id number] Univers 08:20:35 16:41:15 ne Visit Sondra Collazo [id number] [id number] [place] [id number] [address] 2020-01-17 2020-01-17 Outpatient R SONDRA CHAVIRA [facility] B [id number] Univers 13:15:00 13:15:00 SONDRA CHAVIRA of [facility] 2020-01-17 2020-01-17 Telephone Cait [facility] 1.2.840.114 [id number] Univers 00:00:00 00:00:00 Sondra Collazo 350.1.13.10 i ty [id number] [phone] [address] 2020-01-07 2020-01-07 Telephone Cait [facility] 1.2.840.114 [id number] Univers 00:00:00 00:00:00 Sondra Collazo 350.1.13.10 i [id number] [phone] Vt dic[address] 2020-01-06 2020-01-06 Telephone [facility] 1.2.840.114 [id number] Univers 00:00:00 00:00:00 Sondra Collazo 350.1.13.10 i ty [id number] [place] [phone] Vt dic[address] 2020-01-03 2020-01-03 [facility] 1.2.840.114 [id number] Univers 08:46:00 15:02:00 Encounter Sondra Collazo 350.1.13.10 [id number] [place] [phone] [address] 2019-11-29 2020-01-03 Office [facility] 1.2.840.114 [id number] Univers 15:59:09 14:53:01 Visit Sondra Collazo 350.1.13.10 i ty [id number] [phone] [address] 2020-01-03 2020-01-03 Orders Doctor BELEM 1.2.840.114 [id number] Univers 00:00:00 00:00:00 Only Unassigned, JAZMINE 350.1.13.10 [place] [facility] [id number] Jose as [phone] [address] 2019-12-30 2019-12-30 [facility] 1.2.840.114 [id number] Univers 00:00:00 00:00:00 Sondra Collazo 350.1.13.10 i ty [id number] [id number] [address] 2019-12-27 2019-12-27 Outpatient R SONDRA CHAVIRA [facility] B [id number] Univers 16:00:00 16:00:00 SONDRA CHAVIRA ity of [facility] 2019-12-10 2019-12-10 Case Cait [facility] 1.2.840.114 [id number] Univers 00:00:00 00:00:00 Management Sondra Collazo 350.1.13.10 [id number] [phone] [address] 2019-12-05 2019-12-05 Telephone Cait [facility] 1.2.840.114 [id number] Univers 00:00:00 00:00:00 Sondra Collazo 350.1.13.10 [place] ty [id number] [phone] [address] 2019-12-02 2019-12-02 Prep For Brent, [facility] 1.2.840.114 [id number] Univers 00:00:00 00:00:00 Surgery Carmen Collazo 350.1.13.10 i ty [id number] [phone] [address] 2019-12-02 2019-12-02 [facility] 1.2.840.114 [id number] Univers 00:00:00 00:00:00 Sondra Collazo 350.1.13.10 [place] ty [id number] [phone] [address] 2019-12-01 2019-12-01 Case Cait [facility] 1.2.840.114 [id number] Univers 00:00:00 00:00:00 Management Sondra Collazo 350.1.13.10 [id number] [phone] [address] 2019-11-29 2019-11-29 Outpatient R SONDRA CHAVIRA [facility] B [id number] Univers 16:00:00 17:56:19 SONDRA CHAVIRA [facility] 2019-11-29 2019-11-29 Orders Doctor PATRICIA 1.2.840.114 [id number] Univers 00:00:00 00:00:00 Only Unassigned, JAZMINE 350.1.13.10 ity of [place] [facility] 4.2.7.2.686 Jose as [phone] [address] 2019-11-19 2019-11-19 [facility] 1.2.840.114 [id number] Univers 00:00:00 00:00:00 Sondra Collazo 350.1.13.10 [place] [phone] Vt dical [facility] 134 [facility] 2019-11-18 2019-11-18 [facility] 1.2.840.114 [id number] Univers 00:00:00 00:00:00 Sondra Collazo 350.1.13.10 [place] [phone] [address] 2019-11-15 2019-11-15 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 10 [place] [phone] [facility] 353 [facility] 2019-11-15 2019-11-15 Office [facility] 1.2.840.114 [id number] [facility] 16:00:41 17:19:59 Visit Sondra Collazo 350.1.13.10 [place] [phone] [address] 2019-11-15 2019-11-15 Orders Doctor BELEM 1.2.840.114 [id number] Univers 00:00:00 00:00:00 Only Unassigned, JAZMINE 350.1.13.10 ity of [facility] 4.2.7.2.686 Jose as [phone] [address] 2019-11-12 2019-11-12 Telephone [facility] 1.2.840.114 [id number] Univers 00:00:00 00:00:00 Sondra Collazo 350.1.13.10 [place] [phone] Vt dical nal 134 [facility] 2019-09-24 2019-09-24 Outpatient [facility] [id number] Common 08:45:00 08:45:[address] [facility] 2019-08-13 2019-08-13 [facility] 27 [id number] Common 09:15:00 09:15:[address] [facility] 2019-07-24 2019-07-24 [facility] 27 [id number] Common 15:00:00 15:00:[address] [facility] 2019-07-08 2019-07-08 [facility] 27 [id number] Common 10:56:00 10:56:[address] [facility] 2019-06-11 2019-06-11 [facility] [id number] Common 10:15:00 10:15:[address] [facility] 2019-06-07 2019-06-07 Nurse Nurse, [facility] 1.2.840.114 [id number] [facility] 09:59:31 10:24:10 Visit Sondra Chavira 350.1.13. 10 ity [place] 4.2.7.2.686 [place] [phone] Vt dical nal 134 [facility] 2019-04-30 2019-04-30 [facility] [id number] Common 13:30:00 13:30:[address] [facility] Results Test Description Test Time Test Comments Results Result Comments Source COMP. METABOLIC PANEL (31156) 2021-08-04 17:13:25 Test Item Value Reference Range Interpretation Comme nts NA (test code = 5548140676) 139 mmol/L 135-145 K (test code = 1179842165) 4.2 mmol/L 3.5-5.0 CL (test code = 0920908720) 109 mmol/L 98-108 H CO2 TOTAL (test code = 4466822926) 20 mmol/L 23-31 L AGAP (test code = 1185053439) 2-16 BUN (test code = 4403414788) 10 mg/dL 7-23 GLUCOSE (test code = 2521696523) 100 mg/dL 70-110 CREATININE (test code = 0.57 mg/dL 0.50-1.04 4500704208) TOTAL BILI (test code = 0.4 mg/dL 0.1-1.8 8925900045) CALCIUM (test code = 9040523024) 9.4 mg/dL 8.6-10.6 T PROTEIN (test code = 0536198508) 7.2 g/dL 6.3-8.2 ALBUMIN (test code = 6374373835) 4.5 g/dL 3.5-5.0 ALK PHOS (test code = 8264656990) 76 U/L 34-122 ALTv (test code = 1742-6) 22 U/L 5-35 AST(SGOT) (test code = 2952589729) 26 U/L 13-40 eGFR (test code = 1021595125) mL/min/1.73m2 NAHUM (test code = NAHUM) Association of Glomerular Filtration Rate (GFR) and Staging of Kidney Disease* + +-------- + ------+| GFR (mL/min/1.73 m2) ?| With Kidney Damage ?| ?Without Kidney Damage+ +-- + +| ?>90 ?| ?Stage one ?| ? Normal ?+ +------- + -------+| ?60-89 ?| ?Stage two ?| ? Decreased GFR ? + +-------- + ------+| ?30-59 ?| ?Stage three ?| ? Stage three ? + +-------- + ------+| ?15-29 ?| ?Stage four ? | ? Stage four ?+ +------- + -------+| ?<15 (or dialysis) ? ?| ?Stage five ? | ? Stage five ?+ +------- + -------+ *Each stage assumes the associated GFR level has been in effect for at least three months. ?Stages 1 to 5, with or without kidney disease, indicate chronic kidney disease. Notes: Determination of stages one and two (with eGFR >59mL/min/1.73 m2) requires estimation of kidney damage for at least three months as defined by structural or functional abnormalities of the kidney, manifested by either:Pathological abnormalities or Markers of kidney damage (including abnormalities in the composition of the blood or urine or abnormalities in imaging tests). Lab Interpretation (test code = Abnormal 01441-8) [facility] 17:12:44 Test Item Value Reference Range Interpretation Comments LIPASE (test code = 9633204566) 74 U/L 0-220 Lab Interpretation (test code = Normal 23433-2) [facility] WITH [id number] 17:00:06 Test Item Value Reference Range Interpretation Comments WBC (test code = See_Comment [Automated 9990-2) message] The sy stem which generated this result transmitted reference range : 4.30 - 11.10 10*3/?L. The reference range was not used to interpret this result as normal/abnormal . RBC (test code = See_Comment [Automated 759-8) message] The sy stem which generated this result transmitted reference range : 3.93 - 5.25 10*6/?L. The reference range was not used to interpret this result as normal/abnormal . HGB (test code = 13.2 g/dL 11.6-15.0 718-7) HCT (test code = 40.6 % 35.7-45.2 4544-3) MCV (test code = 91.6 fL 80.6-95.5 787-2) MCH (test code = 29.8 pg 25.9-32.8 785-6) MCHC (test code = 32.5 g/dL 31.6-35.1 786-4) RDW-SD (test code = 41.0 fL 39.0-49.9 13960-4) RDW-CV (test code = 12.2 % 12.0-15.5 788-0) PLT (test code = See_Comment H [Automated 677-3) message] The sy stem which generated this result transmitted reference range : 166 - 358 10*3/ ?L. The reference r shahbaz was not used to interpret this result as normal/abnormal . MPV (test code = 10.0 fL 9.5-12.9 96646-0) NRBC/100 WBC (test See_Comment [Automat ed code = 5756072415) message] The system which generated this result transmitted reference range : 0.0 - 10.0 /100 WBCs. The refer ence range was not u sed to interpret th is result as normal/abnormal . NRBC x10^3 (test code <0.01 See_Comment [Auto mated = 7618318126) message] The s ystem which generated this result transmitted reference range : 10*3/?L. The reference range was not used to interpret this result as normal/abnormal . GRAN MAT (NEUT) % 57.4 % (test code = 770-8) IMM GRAN % (test code 0.30 % = 8524667305) LYMPH % (test code = 34.0 % 736-9) MONO % (test code = 5.5 % 5905-5) EOS % (test code = 1.9 % 713-8) BASO % (test code = 0.9 % 706-2) GRAN MAT x10^3(ANC) 6.05 10*3/uL 1.88-7.09 (test code = 6718295251) IMM GRAN x10^3 (test 0.03 10*3/uL 0.00-0.06 code = 5934910920) LYMPH x10^3 (test code 3.59 10*3/uL 1.32-3.29 H = 731-0) MONO x10^3 (test code 0.58 10*3/uL 0.33-0.92 = 742-7) EOS x10^3 (test code = 0.20 10*3/uL 0.03-0.39 711-2) BASO x10^3 (test code 0.10 10*3/uL 0.01-0.07 H = 704-7) Lab Interpretation Abnormal (test code = 47860-2) [facility] WO [id number] 19:58:17 No evidence of fracture or traumatic malalignment. No joint effusion. RL: 4400 End of report Ordering physician:Blaine PEREZ CLINICAL HISTORY: Right knee pain. Possible fracture. TECHNIQUE: ?Helical CT images of the right knee were obtained withoutcontrast. Axial, sagittal and coronal reconstructions were performed. ALARA(As Low As Reasonably Achievable) ?principles was used during thisexamination. COMPARISON: ? Radiographs earlier todayFINDINGS: No acute fracture. Bony alignment is maintained. Visualized joints appearpreserved. No joint effusion. Musculature is within normal limits. Nosignificant soft tissue swelling. [facility], Radiant Results Inft User - 05/20/2021 2:59 PM CDT Ordering physician:Blaine PEREZ CLINICAL HISTORY: Right knee pain. Possible fracture.TECHNIQUE: Helical CT images of the right knee were obtained withoutcontrast. Axial, sagittal and coronal reconstructions were performed. ALARA(As Low As Reasonably Achievable) principles was used during thisexamination.COMPARISON: Radiographs earlier todayFINDINGS:No acute fracture. Bony alignment is maintained. Visualized joints appearpreserved. No joint effusion. Musculature is within normal limits. Nosigni ficant soft tissue swelling.IMPRESSIONNo evidence of fracture or traumatic malalignment.No joint effusion.RL: 4400End of report [facility] 3 VW [id number] 17:44:46 Questionable lateral tibial plateau fracture with knee joint effusion.Findings may be further characterized with a CT scan of the knee. Osteoarthrosis. EXAM: XR KNEE 3 VW RIGHT HISTORY: fall and rightknee pain COMPARISON: None FINDINGS: Imaging of the knee demonstrates mild tricompartmental marginal osteophyteswith mild medial compartment joint space narrowing. There is a moderatesized effusion. Focal cortical irregularity projects over the anteriorarticular margin of the lateral tibial plateau on the lateral view. [facility], Radiant Results Inft User - 05/20/2021 12:45 PM CDTFormatting of this notemight be different from the original.EXAM:XR KNEE 3 VW RIGHTHISTORY:fall and right knee pain COMPARISON:NoneFINDINGS: Imaging of the knee demonstrates mild tricompartmental marginal osteophyteswith mild medial compartment joint space narrowing. There is a moderatesized effusion. Focal cortical irregularity projects over the anteriorarticular margin of the lateral tibial plateau on the lateral view.IMPRESSIONQuestionable lateral tibial plateau fracture with knee joint effusion.Findings may be furthercharacterized with a CT scan of the knee.Osteoarthrosis.[facility] Hospital[facility]inalysis 2021-01-21 21:26:51 Test Item Value Reference Range Interpretation Comments APPEARANCE (test code = Hazy Clear A 9934675052) COLOR (test code = Yellow Yellow 9322559369) PH (test code = 4.8-8.0 2730941123) SP GRAVITY (test code = 1.003-1.030 3823407118) GLU U QUAL (test code = Normal Normal 7104628143) BLOOD (test code = 2+ Negative A 5752940046) KETONES (test code = 5 mg/dL Negative A 4975804511) PROTEIN (test code = Negative Negative 2887-8) UROBILIN (test code = Normal Normal 4178941412) BILIRUBIN (test code = Negative Negative 0017329379) NITRITE (test code = Negative Negative 5035591386) LEUK CHRIS (test code = Negative Negative 6355619683) RBC/HPF (test code = See_Comment H [Autom ated message] 4296890594) The system [employer] generated this result transmitted ref erence range: 0 - 3 HP F. The reference range was not used to int erpret this result as normal/abnormal . WBC/HPF (test code = See_Comment [Autom ated message] 0253722677) The system [employer] generated this result transmitted ref erence range: 0 - 5 HP F. The reference range was not used to int erpret this result as normal/abnormal . BACTERIA (test code = Few Negative A 7980906142) MUCOUS (test code = Moderate Negative LPF A 9313604990) SQ EPITH (test code = HPF 4763640422) Lab Interpretation (test Abnormal code = 95369-9) [facility] (NA, K, CL, CO2, GLUCOSE, BUN, CREATININE, CA)2021-01-21 20:06:25 Test Item Value Reference Range Interpretation Comments NA (test code = 139 mmol/L 135-145 8132597046) K (test code = 3.9 mmol/L 3.5-5.0 4463149280) CL (test code = 105 mmol/L 98-108 1654793530) CO2 TOTAL (test code 25 mmol/L 23-31 = 2960647485) AGAP (test code = 2-16 3059190926) BUN (test code = 14 mg/dL 7-23 7109674402) GLUCOSE (test code = 96 mg/dL 70-110 4632911304) CREATININE (test code 0.69 mg/dL 0.50-1.04 = 1494049307) CALCIUM (test code = 9.4 mg/dL 8.6-10.6 2436641294) eGFR (test code = mL/min/1.73m2 5636127527) NAHUM (test code = NAHUM) Association of Glomerular Filtration Rate (GFR) and Staging of Kidney Disease* + + +- +| GFR (mL/min/1.73 m2) ?| With Kidney Damage ?| ?Without Kidney Damage+ ------+ ----+ ------+| ?>90 ?| ?Stage one ?| ? Normal ?+ -+ + -+| ?60-89 ?| ?Stage two ?| ? Decreased GFR ? + + +- +| ?30-59 ?| ?Stage three ?| ? Stage three ? + + +- +| ?15-29 ?| ?Stage four ? | ? Stage four ?+ -+ + -+| ?<15 (or dialysis) ? ?| ?Stage five ? | ? Stage five ?+ -+ + -+ *Each stage assumes the associated GFR level has been in effect for at least three months. ?Stages 1 to 5, with or without kidney disease, indicate chronic kidney disease. Notes: Determination of stages one and two (with eGFR >59mL/min/1.73 m2) requires estimation of kidney damage for at least three months as defined by structural or functional abnormalities of the kidney, manifested by either:Pathological abnormalities or Markers of kidney damage (including abnormalities in the composition of the blood or urine or abnormalities in imaging tests). [facility] with [id number] 19:53:28 Test Item Value Reference Range Interpretation Comments WBC (test code = See_Comment H [Automated 6690-2) message] The sy stem which generated this result transmitted reference range : 4.30 - 11.10 10*3/?L. The reference range was not used to interpret this result as normal/abnormal . RBC (test code = See_Comment [Automated 789-8) message] The sy stem which generated this result transmitted reference range : 3.93 - 5.25 10*6/?L. The reference range was not used to interpret this result as normal/abnormal . HGB (test code = 13.0 g/dL 11.6-15.0 718-7) HCT (test code = 39.2 % 35.7-45.2 4544-3) MCV (test code = 88.3 fL 80.6-95.5 787-2) MCH (test code = 29.3 pg 25.9-32.8 785-6) MCHC (test code = 33.2 g/dL 31.6-35.1 786-4) RDW-SD (test code = 39.5 fL 39.0-49.9 73518-1) RDW-CV (test code = 12.1 % 12.0-15.5 788-0) PLT (test code = See_Comment H [Automated 777-3) message] The sy stem which generated this result transmitted reference range : 166 - 358 10*3/ ?L. The reference r shahbaz was not used to interpret this result as normal/abnormal . MPV (test code = 9.3 fL 9.5-12.9 L 28457-5) NRBC/100 WBC (test See_Comment [Automat ed code = 1116921884) message] The system which generated this result transmitted reference range : 0.0 - 10.0 /100 WBCs. The refer ence range was not u sed to interpret th is result as normal/abnormal . NRBC x10^3 (test code <0.01 See_Comment [Auto mated = 0328922846) message] The s ystem which generated this result transmitted reference range : 10*3/?L. The reference range was not used to interpret this result as normal/abnormal . GRAN MAT (NEUT) % 80.9 % (test code = 770-8) IMM GRAN % (test code 0.30 % = 9022779914) LYMPH % (test code = 10.6 % 736-9) MONO % (test code = 6.5 % 5905-5) EOS % (test code = 0.9 % 713-8) BASO % (test code = 0.8 % 706-2) GRAN MAT x10^3(ANC) 9.40 10*3/uL 1.88-7.09 H (test code = 1123976935) IMM GRAN x10^3 (test 0.04 10*3/uL 0.00-0.06 code = 4725265159) LYMPH x10^3 (test code 1.23 10*3/uL 1.32-3.29 L = 731-0) MONO x10^3 (test code 0.76 10*3/uL 0.33-0.92 = 742-7) EOS x10^3 (test code = 0.11 10*3/uL 0.03-0.39 711-2) BASO x10^3 (test code 0.09 10*3/uL 0.01-0.07 H = 704-7) Lab Interpretation Abnormal (test code = 85645-8) [facility] (ID NOW RAPID TESTING)2021-01-21 19:10:38 Test Item Value Reference Range Interpretation Comments SARS-CoV-2 Rapid ID NOW Not Detected Not Detected (test code = 56466-7) NAHUM (test code = NAHUM) ID NOW COVID-19 Assay is an isothermal nucleic acid amplification test intended for the qualitative detection of nucleic acid from SARS-CoV-2 viral RNA in nasopharyngeal (LEDGER POSTER) specimens. It is used under Emergency Use Authorization (EUA) by FDA. The limit of detection (LOD) of the assay is 125 Genome Equivalents/mL. A positive result is indicative of the presence of SARS-CoV-2 RNA. ?Clinical correlation with patient history and other diagnostic information is necessary to determine patient infection status. A negative (Not Detected) result does not preclude SARS-CoV-2 infection. In patients with clinical symptoms and other tests that are consistent with SARS-CoV-2 infection, negative results should be treated as presumptive negative and a new specimen should be tested with alternative PCR molecular test. Invalid: Please collect a new specimen for repeat patient testing if clinically indicated. Lab Interpretation Normal (test code = 12417-6) [facility] HospitalXR CHEST 1 [id number] 18:35:43HISTORY: Cough and SOB. FINDINGS: ?AP view of the chest showed normal appearance of thecardiomediastinal silhouette. No acute pneumonia, pleural effusion,pulmonary congestion detected. Old fracture deformity of mid right claviclenoted. CONCLUSIONS: No acute cardiopulmonary disease. [facility], Radiant Results Inft User - 01/21/2021 1:36 PM CDTHISTORY: Cough and SOB.FINDINGS: AP view of the chest showed normal appearance of thecardiomediastinal silhouette. No acute pneumonia, pleural effusion,pulmonary congestion detected. Old fracture deformity of mid right claviclenoted.CONCLUSIONS: No acute cardiopulmonary disease.[facility] ANGIOGRAM [id number] 15:41:[address] neckCT ANGIOGRAM NECK HISTORY: Female 35 years Aneurysm, neck vessel(s) COMPARISON: NoneTECHNIQUE: Routine CTA neck following administration of 100 mL IV Omnipaque FINDINGS: Classic 3 vessel aortic arch branching anatomy. The arch vessel origins arewidely patent. The innominate and subclavian arteries are widely patent. The common carotid arteries, carotid bulbs and cervical internal alonzo tidarteries are widely patent. The vertebral arteries are widely patent from their subclavian originsthrough the vertebrobasilar junction. [facility], Radiant Results Inft User - 10/20/2020 9:42 AM CSTCT ANGIOGRAM NECKHISTORY: Female 35 years Aneurysm, neck vessel(s) COMPARISON: NoneTECHNIQUE: Routine CTA neck following administration of 100 mL IV OmnipaqueFINDINGS:Classic 3 vessel aortic arch branching anatomy. The arch vessel origins arewidely patent. The innominate and subclavian arteries are widely patent.The common carotid arteries, carotid bulbs and cervical internal carotidarteries are widely patent.The vertebral arteries are widely patent from their subclavian originsthrough the vertebrobasilarjunction.IMPRESSIONNormal CT neckUnJoint venture between [facility] and [place] [facility] ResourcesaPTT2020-12-29 15:07:00 Test Item Value Reference Range Interpretation Comments APTT Patient (test See_Comment [Automat ed code = 3173-2) message] The system which generated this result transmitted reference range : 23 - 38 Seconds . The reference range was not used to interpr et this result as normal/abnormal . NAHUM (test code = NAHUM) The [facility] patient population mean normal value for aPTT is 30 seconds. Lab Interpretation Normal (test code = 60761-6) [facility] HospitalProthrombin Time (PT) / [id number] 15:05:00 Test Item Value Reference Range Interpretation Comments PROTIME PATIENT (test See_Comment [Auto mated message] code = 5964-2) The system [employer] generated this result transmitted ref erence range: 12.0 - 1 4.7 Seconds. The re ference range was not u sed to interpret this result as normal/abnor mal. INR (test code = 6301-6) Nor mal INR <1.1; Warfarin Therap eutic range 2.0 to 3. 0 or 2.5 to 3.5, dep ending upon the indica tions. Lab Interpretation (test Normal code = 62014-5) [facility] Hospital[facility] Metabolic Panel (NA, K, CL, CO2, GLUCOSE, BUN, CREATININE, CA)2020-10-20 14:21:00 Test Item Value Reference Range Interpretation Comments NA (test code = 140 mmol/L 135-145 5781414254) K (test code = 3.8 mmol/L 3.5-5 7700443528) CL (test code = 106 mmol/L 98-108 6375915191) CO2 TOTAL (test code = 25 mmol/L 23-31 2856447437) AGAP (test code = 2-16 6737404867) BUN (test code = 15 mg/dL 7-23 1084219853) GLUCOSE (test code = 108 mg/dL 70-110 8255284079) CREATININE (test code 0.65 mg/dL 0.5-1.04 = 6133136431) CALCIUM (test code = 9.2 mg/dL 8.6-10.6 8560036302) eGFR Calculation mL/min/1.73m2 (Non-) (test code = 9623264941) eGFR Calculation mL/min/1.73m2 () (test code = 4461025998) NAHUM (test code = NAHUM) Association of Glomerular Filtration Rate (GFR) and Staging of Kidney Disease* + -+ + ---+| GFR (mL/min/1.73 m2) ?| With Kidney Damage ?| ?Without Kidney Damage+ -------+ ------+ ---------+| ?>90 ?| ?Stage one ?| ? Normal ?+ --+ -+ ----+| ?60-89 ?| ?Stage two ?| ? Decreased GFR ? + -+ + ---+| ?30-59 ?| ?Stage three ?| ? Stage three ? + -+ + ---+| ?15-29 ?| ?Stage four ? | ? Stage four ?+ --+ -+ ----+| ?<15 (or dialysis) ? ?| ?Stage five ? | ? Stage five ?+ --+ -+ ----+ *Each stage assumes the associated GFR level has been in effect for at least three months. ?Stages 1 to 5, with or without kidney disease, indicate chronic kidney disease. Notes: Determination of stages one and two (with eGFR >59mL/min/1.73 m2) requires estimation of kidney damage for at least three months as defined by structural or functional abnormalities of the kidney, manifested by either:Pathological abnormalities or Markers of kidney damage (including abnormalities in the composition of the blood or urine or abnormalities in imaging tests). [facility] Hospital[facility] Function Panel (ALB, T.PRO, BILI T, BU/BC, ALT, AST, ALK PHOS)2020-10-20 14:20:00 Test Item Value Reference Range Interpretation Comments TOTAL BILI (test code = 0496868171) 0.4 mg/dL 0.1-1.1 BILI UNCON (test code = 3773046202) 0.3 mg/dL 0.1-1.1 BILI CONJ (test code = 4104005952) 0.0 mg/dL 0-0.3 T PROTEIN (test code = 5295462885) 7.3 g/dL 6.3-8.2 ALBUMIN (test code = 7767874811) 4.2 g/dL 3.5-5 ALK PHOS (test code = 9785545794) 96 U/L 34-122 ALTv (test code = 1742-6) 21 U/L 5-35 AST(SGOT) (test code = 3373750758) 23 U/L 13-40 Lab Interpretation (test code = Normal 02901-4) [facility] with [id number] 14:08:00 Test Item Value Reference Range Interpretation Comments WBC (test code = See_Comment [Automated 6690-2) message] The sy stem which generated this result transmitted reference range : 4.30 - 11.10 10*3/?L. The reference range was not used to interpret this result as normal/abnormal . RBC (test code = See_Comment [Automated 789-8) message] The sy stem which generated this result transmitted reference range : 3.93 - 5.25 10*6/?L. The reference range was not used to interpret this result as normal/abnormal . HGB (test code = 12.7 g/dL 11.6-15 718-7) HCT (test code = 39.8 % 35.7-45.2 4544-3) MCV (test code = 91.5 fL 80.6-95.5 787-2) MCH (test code = 29.2 pg 25.9-32.8 785-6) MCHC (test code = 31.9 g/dL 31.6-35.1 786-4) RDW-SD (test code = 41.2 fL 39-49.9 17142-7) RDW-CV (test code = 12.3 % 12-15.5 788-0) PLT (test code = See_Comment H [Automated 777-3) message] The sy stem which generated this result transmitted reference range : 166 - 358 10*3/ ?L. The reference r shahbaz was not used to interpret this result as normal/abnormal . MPV (test code = 9.2 fL 9.5-12.9 L 14525-0) NRBC/100 WBC (test See_Comment [Automat ed code = 2526159068) message] The system which generated this result transmitted reference range : 0.0 - 10.0 /100 WBCs. The refer ence range was not u sed to interpret th is result as normal/abnormal . NRBC x10^3 (test code <0.01 See_Comment [Auto mated = 8931402884) message] The s ystem which generated this result transmitted reference range : 10*3/?L. The reference range was not used to interpret this result as normal/abnormal . GRAN MAT (NEUT) % 51.8 % (test code = 770-8) IMM GRAN % (test code 0.30 % = 2143936758) LYMPH % (test code = 36.1 % 736-9) MONO % (test code = 7.0 % 5905-5) EOS % (test code = 3.8 % 713-8) BASO % (test code = 1.0 % 706-2) GRAN MAT x10^3(ANC) 4.85 10*3/uL 1.88-7.09 (test code = 1857047677) IMM GRAN x10^3 (test 0.03 10*3/uL 0-0.06 code = 0330494817) LYMPH x10^3 (test code 3.39 10*3/uL 1.32-3.29 H = 731-0) MONO x10^3 (test code 0.66 10*3/uL 0.33-0.92 = 742-7) EOS x10^3 (test code = 0.36 10*3/uL 0.03-0.39 711-2) BASO x10^3 (test code 0.09 10*3/uL 0.01-0.07 H = 704-7) Lab Interpretation Abnormal (test code = 46118-4) [facility] Hospital[facility] [id number] 14:00:00 Test Item Value Reference Range Interpretation Comments POCT PREG (test code = 1605) negative On board controls acceptable with present C Line (test code = 3574) POCT PREG LOT # (test code = 3575) [id number] POCT PREG TEST DATE (test 2022-02-19 code = 3576) Lab Interpretation (test code = Normal 06092-2) [facility] [id number] 22:32:00 Test Item Value Reference Range Interpretation Comments Streptococcus pyogenes (group A) Negative Negative antigen (test code = 36452-3) Lab Interpretation (test code = Normal 20238-0) [facility] - The Type and Screen expires at midnight on the 3rd day after it was drawn. A current Type and Screen is required when RBCs are requested. For all other blood products, a Type and Scre en performed during the current hospitalizati...2020-01-03 15:17:39 Test Item Value Reference Range Interpretation Comments ABO & RH (test code A Positive Performe d at [facility] = 20) Laboratory [facility] [place] [address] Free: [phone] A No. [id number] IAT (test code = Negative Performed a t [facility] 1185) Laboratory [facility] [place], [place] [address]Toll Free: [phone] A No. [id number] [facility] (NA, K, CL, CO2, GLUCOSE, BUN, CREATININE, CA)2020-01-03 15:12:00 Test Item Value Reference Range Interpretation Comments NA (test code = 140 mmol/L 135-145 0534308314) K (test code = 3.8 mmol/L 3.5-5 9332117396) CL (test code = 111 mmol/L 98-108 H 0337843615) CO2 TOTAL (test code = 22 mmol/L 23-31 L 2132069925) AGAP (test code = 2-16 8688396490) BUN (test code = 15 mg/dL 7-23 1975973696) GLUCOSE (test code = 110 mg/dL 70-110 1062240666) CREATININE (test code = 0.60 mg/dL 0.5-1.04 4276689620) CALCIUM (test code = 8.8 mg/dL 8.6-10.6 0326909444) eGFR Calculation mL/min/1.73m2 (Non-) (test code = 4820041407) eGFR Calculation mL/min/1.73m2 () (test code = 6612039180) NAHUM (test code = NAHUM) Association of Glomerular Filtration Rate (GFR) and Staging of Kidney Disease* + --+ --+ ------+| GFR (mL/min/1.73 m2) ?| With Kidney Damage ?| ?Without Kidney Damage+ --------+ --------+ +| ?>90 ?| ?Stage one ?| ? Normal ?+ ---+ ---+ -------+| ?60-89 ?| ?Stage two ?| ? Decreased GFR ? + --+ --+ ------+| ?30-59 ?| ?Stage three ?| ? Stage three ? + --+ --+ ------+| ?15-29 ?| ?Stage four ? | ? Stage four ?+ ---+ ---+ -------+| ?<15 (or dialysis) ? ?| ?Stage five ? | ? Stage five ?+ ---+ ---+ -------+ *Each stage assumes the associated GFR level has been in effect for at least three months. ?Stages 1 to 5, with or without kidney disease, indicate chronic kidney disease. Notes: Determination of stages one and two (with eGFR >59mL/min/1.73 m2) requires estimation of kidney damage for at least three months as defined by structural or functional abnormalities of the kidney, manifested by either:Pathological abnormalities or Markers of kidney damage (including abnormalities in the composition of the blood or urine or abnormalities in imaging tests). Lab Interpretation Abnormal (test code = 36996-4) [facility] WITH [id number] 14:41:00 Test Item Value Reference Range Interpretation Comments WBC (test code = See_Comment [Automated 2256-2) message] The sy stem which generated this result transmitted reference range : 4.30 - 11.10 10*3/?L. The reference range was not used to interpret this result as normal/abnormal . RBC (test code = See_Comment L [Automated 369-8) message] The sy stem which generated this result transmitted reference range : 3.93 - 5.25 10*6/?L. The reference range was not used to interpret this result as normal/abnormal . HGB (test code = 11.5 g/dL 11.6-15 L 718-7) HCT (test code = 34.7 % 35.7-45.2 L 4544-3) MCV (test code = 89.9 fL 80.6-95.5 787-2) MCH (test code = 29.8 pg 25.9-32.8 785-6) MCHC (test code = 33.1 g/dL 31.6-35.1 786-4) RDW-SD (test code = 39.9 fL 39-49.9 40655-7) RDW-CV (test code = 12.1 % 12-15.5 788-0) PLT (test code = See_Comment [Automated 777-3) message] The sy stem which generated this result transmitted reference range : 166 - 358 10*3/ ?L. The reference r shahbaz was not used to interpret this result as normal/abnormal . MPV (test code = 9.2 fL 9.5-12.9 L 59304-8) NRBC/100 WBC (test See_Comment [Automat ed code = 5413921929) message] The system which generated this result transmitted reference range : 0.0 - 10.0 /100 WBCs. The refer ence range was not u sed to interpret th is result as normal/abnormal . NRBC x10^3 (test code <0.01 See_Comment [Auto mated = 0817915255) message] The s ystem which generated this result transmitted reference range : 10*3/?L. The reference range was not used to interpret this result as normal/abnormal . GRAN MAT (NEUT) % 58.5 % (test code = 770-8) IMM GRAN % (test code 0.30 % = 6259257219) LYMPH % (test code = 30.8 % 736-9) MONO % (test code = 6.3 % 5905-5) EOS % (test code = 3.1 % 713-8) BASO % (test code = 1.0 % 706-2) GRAN MAT x10^3(ANC) 5.54 10*3/uL 1.88-7.09 (test code = 4086106655) IMM GRAN x10^3 (test 0.03 10*3/uL 0-0.06 code = 2669703670) LYMPH x10^3 (test code 2.92 10*3/uL 1.32-3.29 = 731-0) MONO x10^3 (test code 0.60 10*3/uL 0.33-0.92 = 742-7) EOS x10^3 (test code = 0.29 10*3/uL 0.03-0.39 711-2) BASO x10^3 (test code 0.09 10*3/uL 0.01-0.07 H = 704-7) Lab Interpretation Abnormal (test code = 74223-7) [facility] [id number] 14:03:00 Test Item Value Reference Range Interpretation Comments POCT PREG (test code = 1605) Negative On board controls acceptable with C Yes Line (test code = 3574) POCT PREG LOT # (test code = 3575) POCT PREG TEST DATE (test code = 3576) Lab Interpretation (test code = Normal 94624-5) [facility] [id number] 22:54:00 Test Item Value Reference Range Interpretation Comments POCT PREG (test code = 1605) Negative On board controls acceptable with C Yes Line (test code = 3574) POCT PREG LOT # (test code = 3575) POCT PREG TEST DATE (test code = 3576) [facility] [id number] 22:54:00 Test Item Value Reference Range Interpretation Comments POCT PREG (test code = 1605) Negative On board controls acceptable with C Yes Line (test code = 3574) POCT PREG LOT # (test code = 3575) POCT PREG TEST DATE (test code = 3576) [facility]"
[2022-03-20] MEDS ORDERED: NA CHLORIDE 0.9% 1,000 ML ONE (16:45)
[2022-03-20] MEDS ORDERED: ONDANSETRON 4 MG/2 ML VIAL ONE (16:45)
[2022-03-20] MEDS ORDERED: MORPHINE 4 MG/ML SYR ONE ×3 (16:45→22:46)
[2022-03-20 16:49] LABS: Absolute Lymphocytes (CBC) 1.7 K/uL (0.7-4.9); Hematocrit 39.8 % (36.0-45.0); Lymphocytes % 17.1 % (15.3-44.8); MPV 7.5 fL (7.6-11.3); RBC Red Blood Cell Count 4.46 M/uL (3.86-4.86)
[2022-03-20 17:05] LABS: Albumin 3.7 g/dL (3.4-5.0); Bilirubin Total 0.4 mg/dL (0.2-1.0); Potassium 3.2 mmol/L (3.5-5.1); Protein, Total 6.9 g/dL (6.4-8.2)
--- NOTE | 2022-03-20 17:25 | RAD REPORT ---
EXAM DESCRIPTION: CTAbdomen Pelvis W Contrast - 03/20/2022 5:19 pm CLINICAL HISTORY: Abdominal pain. RLQ abdominal pain COMPARISON: Abdomen Pelvis W Contrast dated 01/21/2019; Abdomen Pelvis W Contrast dated 05/28/2016 TECHNIQUE: Biphasic CT imaging of the abdomen and pelvis was performed with 100 ml non-ionic IV cont rast. All CT scans are performed using dose optimization technique as appropriate and may include automated exposure control or mA/KV adjustment according to patient size. FINDINGS: The lung bases are clear. The liver, spleen, pancreas, adrenal glands and kidneys are within normal limits. Tiny calculus likel y present inferior left kidney. No bowel obstruction, free air, free fluid or abscess. Mild sigmoid diverticulosis coli without diver ticulitis. The appendix is normal. No evidence of significant lymphadenopathy. No suspicious bony findings. IMPRESSION: No acute intra-abdominal or pelvic finding.
[2022-03-20 18:45] LABS: Urine Blood Trace-intact (Negative); Urine Glucose Negative (Negative); Urine Protein Negative (Negative); Urine Specific Gravity <=1.005 (1.005-1.030)
[2022-03-20 19:07] LABS: Urine Bacteria <20 /HPF (<20); Urine RBC <5 /HPF (NONE SEEN)
--- NOTE | 2022-03-20 19:32 | RAD REPORT ---
EXAM DESCRIPTION: US - Abdomen Exam Limited - 03/20/2022 7:21 pm CLINICAL HISTORY: RUQ pain COMPARISON: ABDOMINAL EXAM LIMITED dated 09/23/2015; Abdomen Pelvis W Contrast dated 03/20/2022 FINDINGS: The gallbladder demonstrates tiny stones and sludge. No pericholecystic fluid or gallbladd er wall thickening. The common bile duct is normal measuring 3 mm. The liver demonstrates no findings of intrahepatic biliary dilatation. IMPRESSION: Tiny gallbladder sludge and stones noted.
--- NOTE | 2022-03-20 20:28 | EDPHYS ---
Physician Documentation [facility] Name: Kelsi Leung Age: 36 yrs Sex: Female : 1985 Arrival Date: 03/20/2022 Time: 16:13 Bed 6 Private MD: ED Physician Cruz Cueva HPI: 03/20 16:32 This 36 yrs old Female presents to ER via EMS with complaints of Abdominal Pain. pm1 16:32 The patient presents with abdominal pain right lower quadrant. pm1 16:32 Onset: The symptoms/episode began/occurred this morning. The symptoms do not radiate. pm1 The symptoms are described as constant, sharp. Modifying factors: The symptoms are alleviated by nothing, the symptoms are aggravated by nothing. Severity of pain: in the emergency department the pain is actually worse. The patient has not experienced similar symptoms in the past. The patient has not recently seen a physician. 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 - Social history:: Smoking status: Patient reports the use of cigarette tobacco products, smokes one-half pack cigarettes per day. ROS: 16:32 Constitutional: Negative for fever, chills, and weight loss, Cardiovascular: Negative pm1 for chest pain, palpitations, and edema, Respiratory: Negative for shortness of breath, cough, wheezing, and pleuritic chest pain. 19:39 Back: Negative for injury and pain, MS/Extremity: Negative for injury and deformity, pm1 Skin: Negative for injury, rash, and discoloration, Neuro: Negative for headache, weakness, numbness, tingling, and seizure. 19:39 : Negative for injury, bleeding, discharge, and swelling. 19:39 Abdomen/GI: Positive for abdominal pain, nausea and vomiting, of the right lower quadrant, Negative for diarrhea, constipation. 19:39 All other systems are negative. Exam: 16:32 Cardiovascular: Regular rate and rhythm with a normal S1 and S2. No gallops, murmurs, pm1 or rubs. Normal PMI, no JVD. No pulse deficits. Respiratory: Lungs have equal breath sounds bilaterally, clear to auscultation and percussion. No rales, rhonchi or wheezes noted. No increased work of breathing, no retractions or nasal flaring. 16:32 Back: No spinal tenderness. No costovertebral tenderness. Full range of motion. Skin: Warm, dry with normal turgor. Normal color with no rashes, no lesions, and no evidence of cellulitis. MS/ Extremity: Pulses equal, no cyanosis. Neurovascular intact. Full, normal range of motion. 16:32 Constitutional: The patient appears alert, awake, non-toxic, well developed, well hydrated, well groomed, well nourished, in obvious pain. 16:32 Abdomen/GI: Inspection: abdomen appears normal, Palpation: soft, in all quadrants, moderate abdominal tenderness, in the right lower quadrant. 16:32 Neuro: Exam negative for acute changes, Orientation: is normal, Mentation: is normal, Motor: is normal, moves all fours. Vital Signs: 16:13 BP 119 / 85; Pulse 66; Resp 17; Temp 99.1; Pulse Ox 98% ; Weight 70.76 kg; Height 5 ft. jl7 3 in. (160.02 cm); Pain 6/10; 19:02 BP 120 / 76; Pulse 60; Resp 18 S; Pulse Ox 98% on R/A; jd3 20:33 BP 124 / 78; Pulse 62; Resp 17; Pulse Ox 99% on R/A; lg3 16:13 Body Mass Index 27.63 (70.76 kg, 160.02 cm) jl7 MDM: 16:19 Patient medically screened. pm1 18:00 Data reviewed: vital signs. Data interpreted: Pulse oximetry: on room air is 98 %. pm1 Interpretation: normal. 20:01 Physician consultation: Amilcar Lynn MD regarding consult, patient's condition, after a pm1 discussion of the case, a recommendation for transfer for higher level of care is made, No GI available today or tomorrow and need ERCP available. 20:23 Counseling: I had a detailed discussion with the patient and/or guardian regarding: the pm1 historical points, exam findings, and any diagnostic results supporting the discharge/admit diagnosis, lab results, radiology results, the need to transfer to another facility, [facility] does not immediately have the required specialist, No GI available. 22:53 Physician consultation: GI Chappa regarding regarding transfer, patient's condition, pm1 Refused transfer and recommended admission at the hospital here with MRCP. Transfer appropriate only if patient with stone in common bile duct post MRCP. 03/20 16:27 Order name: CBC with Diff; Complete Time: 17:48 pm1 03/20 16:27 Order name: CMP; Complete Time: 17:48 pm1 03/20 16:27 Order name: Lipase; Complete Time: 17:48 pm1 03/20 16:27 Order name: Urine Microscopic Only; Complete Time: 19:28 pm1 03/20 18:46 Order name: Urine Dipstick-Ancillary; Complete Time: 18:47 EDMS 03/20 16:27 Order name: CT Abd/Pelvis - IV Contrast Only; Complete Time: 17:48 pm1 03/20 18:51 Order name: US Abdomen Limited; Complete Time: 19:42 pm1 03/20 20:58 Order name: SARS-COV-2 RT PCR; Complete Time: 22:29 EDMS 03/20 16:27 Order name: IV Saline Lock; Complete Time: 16:38 pm1 03/20 16:27 Order name: Labs collected and sent; Complete Time: 16:38 pm1 03/20 16:27 Order name: Urine Dipstick-Ancillary (obtain specimen); Complete Time: 18:39 pm1 Administered Medications: 16:45 Drug: NS 0.9% 1000 ml Route: IV; Rate: 1000 ml; Site: right antecubital; jl7 23:33 Follow up: IV Status: Completed infusion; IV Intake: 1000ml lg3 16:45 Drug: Zofran (Ondansetron) 4 mg Route: IVP; Site: right antecubital; jl7 20:21 Follow up: Response: No adverse reaction lg3 16:47 Drug: morphine 4 mg Route: IVP; Infused Over: 4 mins; Site: right antecubital; jl7 20:21 Follow up: Response: No adverse reaction lg3 18:39 Drug: morphine 4 mg Route: IVP; Infused Over: 4 mins; Site: right antecubital; jl7 20:21 Follow up: Response: No adverse reaction lg3 20:30 Drug: Phenergan (promethazine) 12.5 mg Route: IVP; Site: left antecubital; lg3 20:30 Follow up: Response: No adverse reaction lg3 22:54 Drug: morphine 4 mg Route: IVP; Infused Over: 4 mins; Site: right antecubital; lg3 23:18 Follow up: Response: No adverse reaction lg3 22:54 Drug: D5-1/2 NS 1000 ml Route: IV; Rate: 100 ml/hr; Site: right antecubital; lg3 03/21 07:09 Follow up: IV Status: Infusion continued upon admission jl7 03/20 23:32 Drug: SOLU-Medrol (methylPrednisoLONE) 125 mg Route: IVP; Site: right antecubital; lg3 23:32 Follow up: Response: No adverse reaction lg3 23:33 Drug: Bentyl (dicyclomine) 20 mg Route: IM; Site: right gluteus; lg3 23:33 Follow up: Response: No adverse reaction lg3 Disposition Summary: 03/20/22 22:42 Hospitalization Ordered Hospitalization Status: Inpatient Admission pm1 Provider: Alejandro Alcala pm1 Location: Telemetry/MedSurg (Inpatient) pm1 Condition: Stable(03/20/22 22:42) pm1 Problem: new(03/20/22 22:42) pm1 Symptoms: have improved(03/20/22 22:42) pm1 Bed/Room Type: Standard pm1 Room Assignment: [facility](03/21/22 00:00) Diagnosis - Pancreatitis pm1 Forms: - Medication Reconciliation Form pm1 - SBAR form pm1 Addendum: 04/02/2022 07:09 Co-signature as Attending Physician, Cruz Cueva MD I agree with the assessment and k dr plan of care. Signatures: Dispatcher [employer] EDOH Cruz Cueva MD MD kdr Attema, Lee, GUIDE ESCORT-C GUIDE ESCORT-Cla1 Rosibel Dsouza, RN RN cg Jasper Rodgers, CRYSTAL TRUCKING MANAGER pm1 Jose Alejandro Collado RN RN jl7 Shaina Monzon RN RN lg3 Corrections: (The following items were deleted from the chart) 03/20 16:32 16:27 Urine Test ordered. pm1 pm1 20:58 20:45 COVID 19 CPL+MR.LAB.BRZ ordered. EDMS EDMS 22:41 20:27 pm1 pm1 : 20:27 Other Acute Care Facility pm1 pm1 20:27 Specialty pm1 pm1 20:27 Stable pm1 pm1 20:27 new pm1 pm1 : 20:27 have improved pm1 pm1 : 20:27 Pancreatitis pm1 pm1 03/21 00:00 03/20 22:42 pm1 cg
--- NOTE | 2022-03-20 20:28 | ER ---
Nurse's Notes [facility] Name: Kelsi Leung Age: 36 yrs Sex: Female : 1985 Arrival Date: 03/20/2022 Time: 16:13 Bed 6 Private MD: Diagnosis: Pancreatitis Presentation: 03/20 16:13 Chief complaint: EMS states: Toned out for RLQ abdominal pain, N/V since 1100 this jl7 morning, hx of colitis and recent dx with Crohn's. Coronavirus screen: At this time, the client does not indicate any symptoms associated with coronavirus-19. Ebola Screen: No symptoms or risks identified at this time. Initial Sepsis Screen: Does the patient meet any 2 criteria? No. Patient's initial sepsis screen is negative. Does the patient have a suspected source of infection? No. Patient's initial sepsis screen is negative. Risk Assessment: Do you want to hurt yourself or someone else? Patient reports no desire to harm self or others. Onset of symptoms was March 20, 2022 at 11:00. Care prior to arrival: None. 16:13 Method Of Arrival: EMS: [facility] 16:13 Acuity: CAMERON 3 jl7 Triage Assessment: 16:16 General: Appears in no apparent distress. uncomfortable, Behavior is cooperative, jl7 crying. Pain: Complains of pain in right lower quadrant Pain currently is 6 out of 10 on a pain scale. at worst was 10 out of 10 on a pain scale. Neuro: Level of Consciousness is awake, alert, obeys commands, Oriented to person, place, time, situation. Cardiovascular: Patient's skin is warm and dry. Respiratory: Airway is patent Respiratory effort is even, unlabored, Respiratory pattern is regular, symmetrical. GI: Reports nausea, vomiting, Patient currently denies diarrhea. : Denies burning with urination. Derm: Skin is pink, warm \T\ dry. 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 - Social history:: Smoking status: Patient reports the use of cigarette tobacco products, smokes one-half pack cigarettes per day. Screenin:00 Abuse screen: Denies threats or abuse. Denies injuries from another. Nutritional jl7 screening: No deficits noted. Tuberculosis screening: No symptoms or risk factors identified. Fall Risk IV access (20 points). Assessment: 16:30 General: See triage. jl7 17:30 Reassessment: Patient appears in no apparent distress at this time. No changes from jl7 previously documented assessment. Patient and/or family updated on plan of care and expected duration. Pain level reassessed. Patient is alert, oriented x 3, equal unlabored respirations, skin warm/dry/pink. 18:30 Reassessment: Patient appears in no apparent distress at this time. No changes from jl7 previously documented assessment. Patient and/or family updated on plan of care and expected duration. Pain level reassessed. Patient is alert, oriented x 3, equal unlabored respirations, skin warm/dry/pink. 20:30 General: Appears in no apparent distress. uncomfortable, Behavior is calm, cooperative. lg3 Pain: Complains of pain in right lower quadrant Pain currently is 6 out of 10 on a pain scale. Also complains of nausea. Neuro: No deficits noted. Daugherty Agitation-Sedation Scale (RASS): 0 - Alert and Calm Level of Consciousness is awake, alert, obeys commands, Oriented to person, place, time, situation. Cardiovascular: No deficits noted. Denies chest pain, shortness of breath. Respiratory: No deficits noted. Airway is patent Trachea midline Respiratory effort is even, unlabored, Respiratory pattern is regular, symmetrical. GI: Abdomen is round non-distended, Bowel sounds present X 4 quads. Abd is soft X 4 quads Abdomen is tender to palpation in right lower quadrant. : No deficits noted. No signs and/or symptoms were reported regarding the genitourinary system. EENT: No deficits noted. No signs and/or symptoms were reported regarding the EENT system. Derm: No deficits noted. No signs and/or symptoms reported regarding the dermatologic system. Skin is intact, is healthy with good turgor, Skin is dry, Skin is pink, warm \T\ dry. Musculoskeletal: No deficits noted. No signs and/or symptoms reported regarding the musculoskeletal system. Circulation, motion, and sensation intact. Range of motion: intact in all extremities. 03/21 00:46 Reassessment: Patient appears in no apparent distress at this time. No changes from lg3 previously documented assessment. Patient and/or family updated on plan of care and expected duration. Pain level reassessed. Patient is alert, oriented x 3, equal unlabored respirations, skin warm/dry/pink. 00:46 General: attempted to call report. Nurse not available. Will try again. . lg3 Vital Signs: 03/20 16:13 BP 119 / 85; Pulse 66; Resp 17; Temp 99.1; Pulse Ox 98% ; Weight 70.76 kg; Height 5 ft. jl7 3 in. (160.02 cm); Pain 6/10; 19:02 BP 120 / 76; Pulse 60; Resp 18 S; Pulse Ox 98% on R/A; jd3 20:33 BP 124 / 78; Pulse 62; Resp 17; Pulse Ox 99% on R/A; lg3 16:13 Body Mass Index 27.63 (70.76 kg, 160.02 cm) jl7 ED Course: 16:13 Patient arrived in ED. jl7 16:15 Jasper Rodgers NP is PHCP. pm1 16:15 Cruz Cueva MD is Attending Physician. pm1 16:16 Triage completed. jl7 16:16 Arm band placed on right wrist. jl7 16:31 Jose Alejandro Collado, GANESH is Primary Nurse. jl7 16:38 Maintain EMS IV. Dressing intact. Good blood return noted. Site clean \T\ dry. Gauge \T\ mario 3 site: 20 G right AC. 17:00 Patient has correct armband on for positive identification. Bed in low position. Call jl7 light in reach. Side rails up X 1. Pulse ox on. NIBP on. 17:00 Initial lab(s) drawn, by me, sent to lab. jl7 17:20 CT Abd/Pelvis - IV Contrast Only In Process Unspecified. EDMS 19:21 Primary Nurse role handed off by Jose Alejandro Collado, GANESH eb 19:23 US Abdomen Limited In Process Unspecified. EDMS 20:20 Shaina Monzon, GANESH is Primary Nurse. lg3 20:45 initiated a transfer with Bo from [facility]. mw2 22:04 connected Jasper Rodgers NP with Dr. Rendon from [facility]. mw2 22:42 Alejandro Alcala MD is Hospitalizing Provider. pm1 03/21 00:32 No provider procedures requiring assistance completed. Patient admitted, IV remains in lg3 place. intact, No redness/swelling at site. Administered Medications: 03/20 16:45 Drug: NS 0.9% 1000 ml Route: IV; Rate: 1000 ml; Site: right antecubital; jl7 23:33 Follow up: IV Status: Completed infusion; IV Intake: 1000ml lg3 16:45 Drug: Zofran (Ondansetron) 4 mg Route: IVP; Site: right antecubital; jl7 20:21 Follow up: Response: No adverse reaction lg3 16:47 Drug: morphine 4 mg Route: IVP; Infused Over: 4 mins; Site: right antecubital; jl7 20:21 Follow up: Response: No adverse reaction lg3 18:39 Drug: morphine 4 mg Route: IVP; Infused Over: 4 mins; Site: right antecubital; jl7 20:21 Follow up: Response: No adverse reaction lg3 20:30 Drug: Phenergan (promethazine) 12.5 mg Route: IVP; Site: left antecubital; lg3 20:30 Follow up: Response: No adverse reaction lg3 22:54 Drug: morphine 4 mg Route: IVP; Infused Over: 4 mins; Site: right antecubital; lg3 23:18 Follow up: Response: No adverse reaction lg3 22:54 Drug: D5-1/2 NS 1000 ml Route: IV; Rate: 100 ml/hr; Site: right antecubital; lg3 03/21 07:09 Follow up: IV Status: Infusion continued upon admission jl7 03/20 23:32 Drug: SOLU-Medrol (methylPrednisoLONE) 125 mg Route: IVP; Site: right antecubital; lg3 23:32 Follow up: Response: No adverse reaction lg3 23:33 Drug: Bentyl (dicyclomine) 20 mg Route: IM; Site: right gluteus; lg3 23:33 Follow up: Response: No adverse reaction lg3 Medication: 20:30 VIS not applicable for this client. lg3 Intake: 23:33 IV: 1000ml; Total: 1000ml. lg3 Outcome: 20:27 ER care complete, transfer ordered by . pm1 22:42 Decision to Hospitalize by Provider. pm1 03/21 00:32 Admitted to Med/surg accompanied by tech, via wheelchair, room 224. lg3 Condition: stable Instructed on the need for admit. 00:58 Patient left the ED. lg3 Signatures: Dispatcher [employer] EDMS Jasper Rodgers, CRYSTAL DYE RANGE FEEDER pm1 Jose Alejandro Collado RN RN jl7 Zhao Flores RN RN jd3 Misty Johns mw2 Marina Barone Lacie, RN RN lg3
[2022-03-20] MEDS ORDERED: PROMETHAZINE INJ 25 MG/ML AMP ONE (20:29)
[2022-03-20] MEDS ORDERED: D5 0.45 NS 1,000 ML IV ONE (22:51)
[2022-03-20] MEDS ORDERED: METHYLPREDNISOLONE 125 MG INJ ONE (23:25)
[2022-03-20] MEDS ORDERED: DICYCLOMINE HCL 20 MG/2 ML AMP IM ONE (23:26)
--- NOTE | 2022-03-20 23:35 | P.HP ---
Certification for Inpatient Patient admitted to: Observation With expected LOS: <2 Midnights Patient will require the following post-hospital care: None Practitioner: I am a practitioner with admitting privileges, knowledge of patient current condition, hospital course, and medical plan of care. Services: Services provided to patient in accordance with Admission requirements found in Title 42 Section 412.3 of the Code of Federal Regulations Patient History Date of Service: 03/20/22 Reason for admission: Abdominal tenderness History of Present Illness: 36-year-old female history of Crohn's presents emerged department for severe abdominal pain. She reports has been having ongoing abdominal pain over the course of last 4 years was diagnosed with Crohn's approximately 1 year ago but this is worse pain than she is ever had before pain is located on the right side of the abdomen right upper quadrant and right lower quadrant. Patient was evaluated in the emergency department her labs were significant for elevated lipase and mild hypokalemia her CT was negative for any acute findings abdominal ultrasound of the gallbladder demonstrated tiny gallbladder sludge and stones. Patient was initially going to be transferred for GI evaluation rule out choledocholithiasis in addition to treatment of her Crohn's with possible flare GI declined stating patient needed MRCP and further evaluation from general surgery and not GI consulted at this time. Patient pain improved at this time will admit, n.p.o., MRCP ordered general surgery consult in place we will also treat for suspected Crohn's flare. Patient follows with GI At [facility] takes mesalamine, hyoscyamine and folic acid for her Crohn's. Allergies NKDA Allergy (Uncoded 09/01/15 15:34) Unknown No Known Allergie Allergy (Uncoded 05/29/16 18:50) Unknown No Known Allergies Allergy (Uncoded 10/24/17 10:36) Unknown Home Medications: Iron,Carb/Vit C/Vit B12/Folic [Iron 100 Plus Tablet] 1 each PO DAILY 04/21/16 Pnv Cmb#95/Ferrous Fumarate/FA [ Tablet] 1 each PO DAILY 04/21/16 Codeine/APAP [Tylenol W/Codeine #3 tab] 1 tab PO Q6HP PRN #30 tab 04/23/16 - Past Medical/Surgical History Diabetic: No -: Crohn's -: GERD -: Hysterectomy -: Endoscopy/colonoscopy/PillCam Psychosocial/ Personal History: Patient lives at home with her family - Family History Father -: Other (see notes) (Psychiatric disorders) - Social History Smoking Status: Current every day smoker Counseled patient to stop smoking for: less than 10 minutes Smoking therapy provided: Yes Patient receptive to therapy: Yes Alcohol use: No CD- Drugs: No Caffeine use: Yes Place of Residence: Home Review of Systems 10-point ROS is otherwise unremarkable Gastrointestinal: Nausea, Abdominal Pain Physical Examination - Physical Exam General: Alert, In no apparent distress, Oriented x3 HEENT: Atraumatic, PERRLA, Mucous membr. moist/pink, EOMI, Sclerae nonicteric Neck: Supple, 2+ carotid pulse no bruit, No LAD, Without JVD or thyroid abnormality Respiratory: Clear to auscultation bilaterally, Normal air movement Cardiovascular: Regular rate/rhythm, Normal S1 S2 Gastrointestinal: Normal bowel sounds, Tenderness (mod. RUQ/RLQ tenderness) Musculoskeletal: No contractures, No erythema, No tenderness, Tenderness Integumentary: No rashes Neurological: Normal speech, Normal strength at 5/5 x4 extr, Normal tone, Normal affect Lymphatics: No axilla or inguinal lymphadenopathy - Studies Laboratory Data (last 24 hrs) 03/20/22 16:36: Sodium 139, Potassium 3.2 L, BUN 10, Creatinine 0.81, Glucose 96, Total Bilirubin 0.4, AST 13 L, ALT 17, Alkaline Phosphatase 87, Lipase 1014 H 03/20/22 16:36: WBC 9.8, Hgb 13.2, Hct 39.8, Plt Count 298 Assessment and Plan - Plan Assessment: Intractable abdominal pain/abdominal tenderness Elevated lipase Cholelithiasis Crohn's with possible flare Hypokalemia Plan: Intractable abdominal pain/abdominal tenderness: Multiple possible etiologies including possible Crohn's flare, cholecystitis, choledocholithiasis, acute pancreatitis. Case was discussed with general surgery will order MRCP n.p.o., IV antibiotics, as needed pain medications and antiemetics, will also treatment steroids for possible Crohn's flare. Will order lipid panel to rule out hypertriglyceridemia induced pancreatitis. Trend LFTs, lipase, CBC. Appreciate further input from general surgery Elevated lipase: Continue as above Cholelithiasis: Continue as above surgical consult in place. Crohn's with possible flare: Continue IV antibiotics, IV steroids, as needed pain medications. Continue home medications when patient is tolerating p.o. Hypokalemia: Protocol in place. DVT PPX: SCD Code status: Full Discharge Plan: Home Plan to discharge in: 24 Hours - Advance Directives Does patient have a Living Will: No Does patient have a Durable POA for Healthcare: No - Code Status/Comfort Care Code Status Assessed: Yes (Full code) Critical Care: No Time Spent Managing Pts Care (In Minutes): 55
[2022-03-21] MEDS: ONDANSETRON 4 MG/2 ML VIAL IV PRN ×5 (01:33→18:34)
[2022-03-21] MEDS: HYDROMORPHONE HCL 1 MG/ML INJ IV PRN ×5 (01:33→18:34)
[2022-03-21] MEDS: PIPER TAZO 3.375 GM in NA CHLORIDE 0.9% 100 ML IV SCH ×3 (01:39→16:21)
[2022-03-21] MEDS: D5 0.45 NS 1,000 ML IV SCH ×3 (01:39→21:17)
[2022-03-21 02:58] VITALS: BMI 27.6
[2022-03-21] MEDS: NICOTINE 14 MG/PAT TD SCH ×2 (03:01→08:35)
[2022-03-21 03:54] LABS: Absolute Lymphocytes (CBC) 0.7 K/uL (0.7-4.9); Hematocrit 37.7 % (36.0-45.0); Lymphocytes % 7.7 % (15.3-44.8); MPV 7.8 fL (7.6-11.3)
[2022-03-21 04:09] LABS: Albumin 3.5 g/dL (3.4-5.0); Bilirubin Total 0.3 mg/dL (0.2-1.0); Potassium 3.7 mmol/L (3.5-5.1); Protein, Total 6.8 g/dL (6.4-8.2)
[2022-03-21 05:08] LABS: Blood Morphology Comment NOT SEEN (NOT SEEN); Platelet Estimate ADEQ
[2022-03-21] MEDS ORDERED: KCL 20 MEQ/100 mL IVPB 20 MEQ/100 ML BAG IV SCH (06:00)
--- NOTE | 2022-03-21 06:33 | P.PN ---
Date of Service: 03/21/22 Subjective: No significant change, continues to get pain in waves, severe in right upper quadrant ROS: 10 point ROS as noted above, otherwise negative Physical exam GEN: Alert, oriented, shaking / almost rigor like due to pain HEENT: Normal conjunctiva, sclera anicteric CV: Sinus tachycardia, no edema Pulm: Nonlabored respirations on room air ABD: Moderate tenderness to palpation in RUQ Integumentary: No rashes Neuro: Normal speech, normal affect Problem List Intractable abdominal pain/tenderness, nausea and vomiting Crohn's flare vs Duodenal ulcer elevated lipase IBS-C MRCP negative suspect duodenal ulcer / possible crohn's flare check inflammatory markers, stool studies patient states normally has BM every 3 weeks start bowel regimen protonix, carafate steroids for crohn's general surgery consulted, less likely gallbladder, will obtain HIDA scan tomorrow no opioids ~6hrs prior to scan antiemetics as needed Code: full Dispo: home, ~2-3 days Time Spent Managing Pts Care (In Minutes): 35
[2022-03-21] MEDS: METHYLPREDNISOLONE 40 MG INJ IV SCH ×2 (08:35→16:21)
--- NOTE | 2022-03-21 09:30 | RAD REPORT ---
EXAM DESCRIPTION: MRICholangiogram03/21/2022 9:22 am CLINICAL HISTORY: Abdominal pain COMPARISON: March 20, 2022 cat scan and ultrasound TECHNIQUE: Magnetic resonance cholangiogram was performed.3D MIP reconstruction performed FINDINGS: A large filling defect within the gallbladder is not seen. Gallbladder wall normal thickness. The biliary tree is normal caliber without a filling defect. Pancreatic duct is normal caliber IMPRESSION: Unremarkable exam
--- NOTE | 2022-03-21 10:48 | P.PN ---
Date of Service: 03/21/22 Reason for consult: Abdominal pain History of present illness: Patient is a 36-year-old female presents to the emergency room with acute exacerbation of abdominal pain that has been intermittent for the last 4 years. Patient states the pain is in the right middle quadrant of her abdomen. It is associated with nausea and vomiting. Patient denies diarrhea, constipation, blood per rectum, dysuria, hematuria, sore throat, runny nose, cough, headaches, dizziness, chest pain, fever or chills. Patient had a colonoscopy and upper endoscopy done in October of this year. This was done by Dr. Mackey. Patient states that patient had exacerbation of Crohn's disease, ulcerative colitis and ulcer disease Review of systems: Otherwise unremarkable Past medical history: GERD, ulcerative colitis and Crohn's disease. Patient is supposed to see a new GI doctor in [facility] tomorrow. Past surgical history: Total abdominal hysterectomy Allergies: Sertraline Social history: Patient does smoke and has been counseled, denies alcohol use Family history: Noncontributory Vital signs: Stable, afebrile Physical exam: Awake alert oriented x3 Head and neck exam: No masses Chest: Clear Heart: S1-S2 Abdomen: Soft, nondistended, positive bowel sounds, tenderness in the right middle quadrant with no rebound, rigidity or guarding at this time. Extremity: Neurovascular intact, nontender Neuro: Nonfocal Diagnostic data: White count is normal. Lipase was elevated over thousand yesterday and is normal today. LFTs were essentially normal. CAT scan is negative. Ultrasound shows tiny sludge and stones with no evidence of cholecystitis. MRCP is negative. Assessment: Abdominal painetiology unclear at this time. Patient could have an exacerbation of her Crohn's disease as well as ulcerative colitis. Patient could also have exacerbation of her peptic ulcer disease. However, given the fact that patient has tiny stones and sludge in her gallbladder, this could be the cause of her pain as well. I discussed the case in detail with Dr. Alcala. Plan/recommendation: I believe we should medically try to manage her Crohn's fla reup. She should also be given proton pump inhibitor for peptic ulcer disease. If her pain persists she would benefit from getting a HIDA scan to rule out cholecystitis. Ideally, patient's care would be coordinated with her GI doctor. If we can medically manage her and get her to her GI doctor that would be the best option. If her pain persists and the HIDA scan is positive for cholecystitis, then the patient may benefit from a cholecystectomy. We will follow this patient while in the hospital. CC:
[2022-03-21] MEDS: HYDROCODONE/APAP 7.5/325 MG TAB PO PRN (16:20)
[2022-03-21] MEDS ORDERED: SUCRALFATE 1 GM TABLET PO SCH (16:30)
[2022-03-21] MEDS: SUCRALFATE 1 GM TABLET PO SCH (21:17)
[2022-03-21] MEDS: DOCUSATE NA 100 MG CAP PO SCH (21:17)
[2022-03-22] MEDS: ONDANSETRON 4 MG/2 ML VIAL IV PRN ×5 (00:38→23:55)
[2022-03-22] MEDS: HYDROMORPHONE HCL 1 MG/ML INJ IV PRN ×4 (00:39→20:12)
[2022-03-22] MEDS: PIPER TAZO 3.375 GM in NA CHLORIDE 0.9% 100 ML IV SCH ×3 (00:42→17:21)
[2022-03-22] MEDS: METHYLPREDNISOLONE 40 MG INJ IV SCH ×3 (00:42→17:20)
[2022-03-22 03:51] LABS: Absolute Lymphocytes (CBC) 0.9 K/uL (0.7-4.9); Hematocrit 37.3 % (36.0-45.0); MPV 8.1 fL (7.6-11.3); RBC Red Blood Cell Count 4.17 M/uL (3.86-4.86)
[2022-03-22 04:08] LABS: Albumin 3.2 g/dL (3.4-5.0); Bilirubin Total 0.2 mg/dL (0.2-1.0); Potassium 3.7 mmol/L (3.5-5.1); Protein, Total 6.7 g/dL (6.4-8.2)
[2022-03-22] MEDS: D5 0.45 NS 1,000 ML IV SCH ×2 (06:11→17:20)
--- NOTE | 2022-03-22 08:11 | P.PN ---
Date of Service: 03/22/22 Subjective: Patient still complaining of abdominal pain. Objective: Vital signs stable, afebrilewhite count is 14.3 (patient started on steroids) and inflammatory markers are elevated with CRP greater than 12 Abdomen: Soft, nondistended, positive bowel sounds with diffuse tenderness but no peritonitis Assessment: Abdominal pain, etiology unclear at this time. Suspect flareup of Crohn's disease. Plan:We will get a HIDA scan to rule out cholecystitis. Continue current management. Will discuss case with the hospitalist after HIDA scan is done. CC:
[2022-03-22] MEDS: DOCUSATE NA 100 MG CAP PO SCH ×2 (09:00→20:12)
[2022-03-22] MEDS: SUCRALFATE 1 GM TABLET PO SCH ×3 (09:57→20:12)
[2022-03-22] MEDS: NICOTINE 14 MG/PAT TD SCH (09:58)
--- NOTE | 2022-03-22 10:17 | RAD REPORT ---
EXAM DESCRIPTION: NM - Hepatobiliary System Imagin - 03/22/2022 9:57 am CLINICAL HISTORY: RUQ pain COMPARISON: Abdomen Exam Limited dated 03/20/2022 TECHNIQUE: The patient was administered approximately 7 mCi Tc99m Choletec. Imaging of the right upp er quadrant was performed initially for up to 60 minutes. Ice cream was administered in place of CCK. FINDINGS: Normal hepatic uptake and excretion with appropriate clearance of background blood pool ac tivity. Normal visualization of biliary and small bowel activity. Gallbladder visualizes within normal time limits. Subjective pain reported by the patient: Pre-procedure - 9 During or subsequent to fatty meal - 10 IMPRESSION: Patient cystic duct and patent sphincter of Oddi. No delay in visualization of the gallb ladder, biliary tree, or duodenum. Subjective pain increased after the patient was administered ice cream.
[2022-03-22 13:46] LABS: Urine Appearance CLEAR (Clear); Urine Color YELLOW (Yellow)
[2022-03-22 13:47] LABS: Urine Bilirubin NEGATIVE (Negative); Urine Blood 1+ (Negative); Urine Glucose NEGATIVE (Negative); Urine Microscopic Reflex ORDER UMIC; Urine Protein NEGATIVE (Negative); Urine Urobilinogen 0.2 mg/dL (0.2-1.0)
[2022-03-22 13:54] LABS: Urine Bacteria NONE SEEN /HPF (<20); Urine RBC <5 /HPF (NONE SEEN)
[2022-03-22] MEDS: HYDROCODONE/APAP 7.5/325 MG TAB PO PRN ×2 (15:49→23:55)
--- NOTE | 2022-03-22 16:41 | P.PN ---
Subjective Date of Service: 03/22/22 Chief Complaint: Abdominal tenderness Patient complaining of persistent abdominal pain. No vomiting. She denies diarrhea. No fever. She has tolerated full liquid diet. Physical Examination - Vital Signs Temperature: 97.6 F Blood Pressure: 133/58 Pulse: 64 Respirations: 14 Pulse Ox (%): 98 Assessment And Plan - Plan Physical exam GEN: Alert, oriented HEENT: Normal conjunctiva, sclera anicteric CV: Normal heart sounds 1 and 2, no edema Pulm: Nonlabored respirations on room air ABD: Moderate tenderness to palpation in RUQ and epigastrium Integumentary: No rashes Neuro: Normal speech, normal affect Problem List Intractable abdominal pain/tenderness, nausea and vomiting Crohn's flare vs Duodenal ulcer elevated lipase MRCP negative, HIDA scan is negative. suspect duodenal ulcer / possible crohn's flare. Elevated lipase but CT abdomen shows no evidence of acute pancreatitis. CRP elevated. Patient reports history of chronic constipation. Continue IV steroid for possible Crohn's disease flare. Case discussed with general surgery-Dr. Lynn who recommend no cholecystectomy at this time. protonix, carafate Continue supportive measures-pain management and antiemetics as needed. Diet as tolerated. Code: full
[2022-03-23] MEDS: METHYLPREDNISOLONE 40 MG INJ IV SCH ×3 (00:57→16:43)
[2022-03-23] MEDS: PIPER TAZO 3.375 GM in NA CHLORIDE 0.9% 100 ML IV SCH ×3 (00:57→16:43)
[2022-03-23] MEDS: HYDROMORPHONE HCL 1 MG/ML INJ IV PRN ×2 (01:16→05:22)
[2022-03-23] MEDS: D5 0.45 NS 1,000 ML IV SCH ×4 (01:19→23:43)
[2022-03-23 04:13] LABS: Absolute Lymphocytes (CBC) 1.2 K/uL (0.7-4.9); Hematocrit 35.8 % (36.0-45.0); Lymphocytes % 8.8 % (15.3-44.8); MPV 7.9 fL (7.6-11.3); RBC Red Blood Cell Count 3.99 M/uL (3.86-4.86)
[2022-03-23 04:32] LABS: Albumin 3.1 g/dL (3.4-5.0); Bilirubin Total 0.3 mg/dL (0.2-1.0); Potassium 3.5 mmol/L (3.5-5.1); Protein, Total 6.2 g/dL (6.4-8.2)
[2022-03-23] MEDS: ONDANSETRON 4 MG/2 ML VIAL IV PRN ×4 (05:22→16:43)
[2022-03-23] MEDS: DOCUSATE NA 100 MG CAP PO SCH ×2 (08:02→20:25)
[2022-03-23] MEDS: HYDROCODONE/APAP 7.5/325 MG TAB PO PRN ×2 (08:02→16:43)
[2022-03-23] MEDS: NICOTINE 14 MG/PAT TD SCH (08:03)
[2022-03-23] MEDS: SUCRALFATE 1 GM TABLET PO SCH ×3 (08:03→20:25)
[2022-03-23] MEDS ORDERED: POTASSIUM CL SA 10 MEQ TAB PO ONE (08:14)
[2022-03-23] MEDS ORDERED: HYDROMORPHONE HCL 1 MG/ML INJ IV PRN (08:26)
[2022-03-23] MEDS ORDERED: SODIUM CHLORIDE 0.9% 10ML INJ IV PRN (08:29)
[2022-03-23] MEDS: PANTOPRAZOLE 40 MG INJ IVP SCH ×2 (08:44→20:25)
[2022-03-23] MEDS ORDERED: POTASSIUM 25 MEQ EFFERV TAB PO ONE (09:00)
--- NOTE | 2022-03-23 09:46 | P.PN ---
Date of Service: 03/23/22 Subjective: Patient still complaining of abdominal pain after eating Objective: Vital signs stable, afebrilewhite count is still elevated (patient started on steroids) and inflammatory markers are elevated with CRP greater than 12. Lipase is elevated today. HIDA scan was done utilizing ice cream so accurate ejection fraction was not calculated. But the gallbladder filled without any difficulty. In the contrast entered bowel without any difficulty. Abdomen: Soft, nondistended, positive bowel sounds with mild epigastric, left upper quadrant and right upper quadrant tenderness. No evidence of peritonitis at this time. Assessment: Abdominal pain, etiology unclear at this time. Suspect flareup of Crohn's disease. Pancreatitisetiology unclear at this time. Plan: I discussed the case with Dr. Hathaway. We will try to contact Dr. Mackey to see if he can help us in this complicated diagnostic case as he knows the pat ient. Continue steroids and antibiotics as well as proton pump inhibitors. At this time, there is no evidence for surgical intervention. Dr. Mcrae will be covering for me when I am out of town. CC:
--- NOTE | 2022-03-23 16:21 | P.PN ---
Subjective Date of Service: 03/23/22 Chief Complaint: Abdominal tenderness Patient complaining of persistent nausea and dry heaving She denies diarrhea. No fever. She has not tolerated diet. Physical Examination - Vital Signs Temperature: 98.0 F Blood Pressure: 135/68 Pulse: 43 Respirations: 14 Pulse Ox (%): 98 Assessment And Plan - Plan Physical exam GEN: Alert, oriented HEENT: Normal conjunctiva, sclera anicteric CV: Normal heart sounds 1 and 2, no edema Pulm: Clear to auscultation bilaterally ABD: Moderate tenderness to deep palpation in RUQ and epigastrium Integumentary: No rashes Neuro: Normal speech, normal affect Problem List Intractable abdominal pain/tenderness, nausea and vomiting Crohn's flare vs Duodenal ulcer elevated lipase Plan: MRCP negative, HIDA scan is negative. suspect duodenal ulcer / possible crohn's flare. Elevated lipase but CT abdomen shows no evidence of acute pancreatitis. Patient still meets criteria for acute pancreatitis with symptoms and elevated lipase. Lipase trended down to normal rapidly but elevated again. Gallstone pancreatitis is highly possible given small gallstones noted by the liver ultrasound. Patient may need cholecystectomy. We will repeat lipase level tomorrow. We will also obtain small bowel series given history of constipation Continue IV steroid for possible Crohn's disease flare. Continue protonix, carafate Continue supportive measures-pain management and antiemetics as needed. Clear liquid diet. Code: full
[2022-03-24] MEDS: PIPER TAZO 3.375 GM in NA CHLORIDE 0.9% 100 ML IV SCH ×2 (00:58→08:26)
[2022-03-24] MEDS: METHYLPREDNISOLONE 40 MG INJ IV SCH ×2 (00:58→08:25)
[2022-03-24] MEDS: MORPHINE 2 MG/ML SYR IV PRN ×3 (01:21→13:40)
[2022-03-24] MEDS: ONDANSETRON 4 MG/2 ML VIAL IV PRN ×5 (01:21→22:52)
[2022-03-24 06:19] LABS: Absolute Lymphocytes (CBC) 1.3 K/uL (0.7-4.9); Hematocrit 34.6 % (36.0-45.0); Lymphocytes % 12.7 % (15.3-44.8); MPV 8.1 fL (7.6-11.3); RBC Red Blood Cell Count 3.88 M/uL (3.86-4.86)
[2022-03-24 06:24] LABS: Potassium 3.4 mmol/L (3.5-5.1)
[2022-03-24 06:43] LABS: Magnesium 2.4 mg/dL (1.8-2.4)
[2022-03-24] MEDS ORDERED: POTASSIUM CL SA 10 MEQ TAB PO ONE (08:00)
[2022-03-24] MEDS: D5 0.45 NS 1,000 ML IV SCH ×2 (08:24→20:20)
[2022-03-24] MEDS: PANTOPRAZOLE 40 MG INJ IVP SCH ×2 (08:26→20:15)
[2022-03-24] MEDS: NICOTINE 14 MG/PAT TD SCH (08:26)
[2022-03-24] MEDS: SUCRALFATE 1 GM TABLET PO SCH ×3 (08:27→20:15)
[2022-03-24] MEDS: DOCUSATE NA 100 MG CAP PO SCH ×2 (08:35→20:16)
--- NOTE | 2022-03-24 11:46 | P.PN ---
Subjective Date of Service: 03/24/22 Chief Complaint: Abdominal tenderness Patient doing much better today She denies diarrhea. No BM since admission No fever. She tolerated liquid diet last night. Physical Examination - Vital Signs Temperature: 97.7 F Blood Pressure: 137/83 Pulse: 52 Respirations: 18 Pulse Ox (%): 98 Assessment And Plan - Plan Physical exam GEN: Alert, oriented HEENT: Normal conjunctiva, sclera anicteric CV: Normal heart sounds 1 and 2, no edema Pulm: Clear to auscultation bilaterally ABD: Soft, nontender. Normal bowel sounds. Integumentary: No rashes Neuro: Normal speech, normal affect Problem List Intractable abdominal pain/tenderness, nausea and vomiting Crohn's flare vs Duodenal ulcer elevated lipase Plan: MRCP negative, HIDA scan is negative. suspect duodenal ulcer / possible crohn's flare. Elevated lipase but CT abdomen shows no evidence of acute pancreatitis. Patient still meets criteria for acute pancreatitis with symptoms and elevated lipase. Lipase trended down to normal rapidly but elevated again. Lipase level has fluctuated. Level is normal today Gallstone pancreatitis is highly possible given small gallstones noted by the liver ultrasound. Patient may need cholecystectomy-elective. Patient scheduled for small bowel series to better. Transition from IV steroids to oral prednisone today. Continue protonix, carafate Continue supportive measures-pain management and antiemetics as needed. Advance diet as tolerated. Code: full
[2022-03-24] MEDS ORDERED: PROMETHAZINE INJ 25 MG/ML AMP IV ONE (14:29)
--- NOTE | 2022-03-24 16:00 | RAD REPORT ---
EXAM DESCRIPTION: RAD - Abdomen Single View - 03/24/2022 3:44 pm CLINICAL HISTORY: Abdominal pain FINDINGS: Air is present within couple of loops of nondilated small bowel. Air is present throughout colon. No bowel obstruction No abnormal calcifications displayed
[2022-03-24] MEDS: metroNIDAZOLE 500 MG TABLET PO SCH ×2 (16:29→20:15)
[2022-03-24] MEDS: CIPROFLOXACIN HCL 500 MG TAB PO SCH (20:15)
[2022-03-24] MEDS: HYDROCODONE/APAP 7.5/325 MG TAB PO PRN (20:19)
[2022-03-25] MEDS: ONDANSETRON 4 MG/2 ML VIAL IV PRN ×2 (04:25→09:37)
[2022-03-25] MEDS: MORPHINE 2 MG/ML SYR IV PRN (04:25)
[2022-03-25 04:42] LABS: Potassium 3.4 mmol/L (3.5-5.1)
[2022-03-25] MEDS: D5 0.45 NS 1,000 ML IV SCH (05:24)
[2022-03-25] MEDS ORDERED: POTASSIUM CL SA 10 MEQ TAB PO ONE (08:00)
[2022-03-25] MEDS ORDERED: predniSONE 20 MG TAB PO SCH (09:00)
[2022-03-25] MEDS: NICOTINE 14 MG/PAT TD SCH (09:36)
[2022-03-25] MEDS: PANTOPRAZOLE 40 MG INJ IVP SCH (09:37)
[2022-03-25] MEDS: metroNIDAZOLE 500 MG TABLET PO SCH (09:37)
[2022-03-25] MEDS: HYDROCODONE/APAP 7.5/325 MG TAB PO PRN (09:37)
[2022-03-25] MEDS: SUCRALFATE 1 GM TABLET PO SCH (09:38)
[2022-03-25] MEDS: DOCUSATE NA 100 MG CAP PO SCH (09:38)
[2022-03-25] MEDS: CIPROFLOXACIN HCL 500 MG TAB PO SCH (09:38)
--- NOTE | 2022-03-25 11:00 | P.DS ---
Admission Date: 03/21/22 Discharge Date: 03/25/22 Disposition: ROUTINE DISCHARGE Discharge Condition: FAIR Reason for Admission: Abdominal tenderness Brief History of Present Illness: 36-year-old female history of Crohn's presents emerged department for severe abdominal pain. She reports has been having ongoing abdominal pain over the course of last 4 years was diagnosed with Crohn's approximately 1 year ago but this is worse pain than she is ever had before pain is located on the right side of the abdomen right upper quadrant and right lower quadrant. Patient was evaluated in the emergency department her labs were significant for elevated lipase and mild hypokalemia her CT was negative for any acute findings abdominal ultrasound of the gallbladder demonstrated tiny gallbladder sludge and stones. Patient was initially going to be transferred for GI evaluation rule out choledocholithiasis in addition to treatment of her Crohn's with possible flare GI declined stating patient needed MRCP and further evaluation from general surgery and not GI consulted at this time. Patient pain improved at this time will admit, n.p.o., MRCP ordered general surgery consult in place we will also treat for suspected Crohn's flare. Patient follows with GI At [facility] takes mesalamine, hyoscyamine and folic acid for her Crohn's. Hospital Course: Diagnosis Intractable abdominal pain/tenderness, nausea and vomiting Crohn's flare vs Duodenal ulcer elevated lipase Hospital course: Patient admitted to the medical floor and started on supportive measures includi ng IV hydration. Also started on IV antibiotics for possible infective enterocolitis, IV steroid for Crohn's disease flare. Her lipase level elevated to 1000. Liver ultrasound suggested small gallstones and gallbladder sludge, no evidence of cholecystitis and normal CBD. MRCP negative, HIDA scan is negative. Patient with a history of peptic ulcer. Suspected her symptoms secondary to duodenal ulcer / possible crohn's flare or acute pancreatitis. Noted patient has a chronic history of nausea and vomiting and abdominal pain, initially diagnosed with irritable bowel syndrome followed by recent diagnosis of Crohn's disease and started on mesalamine. Elevated lipase but CT abdomen shows no evidence of acute pancreatitis. Patient still meets criteria for acute pancreatitis with symptoms and elevated lipase. Lipase trended down to normal rapidly but elevated again. Lipase level has fluctuated. Lipase level has been normal over the past couple of days. Gallstone pancreatitis is highly possible given small gallstones noted by the liver ultrasound. Patient may need cholecystectomy-elective. Small bowel series done was unremarkable, no obstruction or stricture. Patient transitioned from IV steroids to oral prednisone today which she tolerated. She was also treated with Protonix and Carafate. He has tolerated diet advancement to full liquid and soft consistency. 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 Vitals are stable. Patient discharged per her request. She is prescribed antibiotics and oral prednisone. Vital Signs/Physical Exam: Temp Pulse Resp BP Pulse Ox 97.4 F 53 18 115/81 99 03/25/22 08:00 03/25/22 08:00 03/25/22 08:00 03/25/22 08:00 03/25/22 09:37 General: Alert, In no apparent distress, Oriented x3 HEENT: Mucous membr. moist/pink Neck: JVD not distended Respiratory: Clear to auscultation bilaterally, Normal air movement Cardiovascular: No edema, Regular rate/rhythm, Normal S1 S2 Gastrointestinal: Normal bowel sounds, Soft and benign, Non-distended, No tenderness Musculoskeletal: No swelling Integumentary: No rashes Neurological: Normal strength at 5/5 x4 extr Laboratory Data at Discharge: WBC 10.3 K/uL (4.3-10.9) D 03/24/22 05:44 Hgb 11.6 g/dL (12.0-15.0) L 03/24/22 05:44 Hct 34.6 % (36.0-45.0) L 03/24/22 05:44 Plt Count 268 K/uL (152-406) 03/24/22 05:44 Sodium Cancelled 03/25/22 14:00 Potassium Cancelled 03/25/22 14:00 BUN Cancelled 03/25/22 14:00 Creatinine Cancelled 03/25/22 14:00 Glucose Cancelled 03/25/22 14:00 Magnesium 2.4 mg/dL (1.8-2.4) 03/24/22 05:44 Total Bilirubin 0.3 mg/dL (0.2-1.0) 03/23/22 03:50 AST 36 U/L (15-37) 03/23/22 03:50 ALT 40 U/L (12-78) 03/23/22 03:50 Alkaline Phosphatase 66 U/L (45-117) 03/23/22 03:50 Triglycerides 119 mg/dL (<150) 03/21/22 03:13 Cholesterol 161 mg/dL (<200) 03/21/22 03:13 HDL Cholesterol 31 mg/dL (40-60) L 03/21/22 03:13 Cholesterol/HDL Ratio 5.19 03/21/22 03:13 Lipase 75 U/L (73-393) 03/25/22 03:53 Home Medications: Hyoscyamine Sulfate 1 tab PO PRN 03/21/22 Mesalamine 2 tab PO BEDTIME 03/21/22 Ondansetron [Zofran (Odt)*] 1 tab PO PRN PRN 03/21/22 diazePAM [Diazepam] 1 tab PO PRN 03/21/22 Ciprofloxacin HCl [Cipro 500 MG Tablet] 500 mg PO BID #4 tab 03/25/22 Docusate [Colace Cap*] 100 mg PO BID #60 cap 03/25/22 Nicotine [Nicoderm*] 1 patch TD DAILY #30 patch.td24 03/25/22 Pantoprazole Sodium [Protonix] 40 mg PO BID #60 tablet. 03/25/22 Sucralfate [Carafate*] 1 gm PO TID #45 tab 03/25/22 metroNIDAZOLE [Flagyl*] 500 mg PO TID #6 tablet 03/25/22 predniSONE [Prednisone*] 40 mg PO DAILY #5 tab 03/25/22 traMADol HCL [Ultram*] 50 mg PO Q6H PRN #20 tab 03/25/22 New Medications: Sucralfate [Carafate*] 1 gm PO TID #45 tab Ciprofloxacin HCl [Cipro 500 MG Tablet] 500 mg PO BID #4 tab Docusate [Colace Cap*] 100 mg PO BID #60 cap metroNIDAZOLE [Flagyl*] 500 mg PO TID #6 tablet Nicotine [Nicoderm*] 1 patch TD DAILY #30 patch.td24 predniSONE [Prednisone*] 40 mg PO DAILY #5 tab Pantoprazole Sodium [Protonix] 40 mg PO BID #60 tablet. traMADol HCL [Ultram*] 50 mg PO Q6H PRN #20 tab PRN Reason: Pain Diet: Regular (Soft diet and advance as tolerated) Followup: Benny Smart, DO [Primary Care Provider] - (Call to schedule appointment) Time spent managing pt's care (in minutes): 37
[2022-03-25 11:49] VITALS: O2SAT 98
[2022-03-25 12:15] VITALS: BP 129/67; TEMP 97
== END 2022-03-25 13:20 | disposition home or self-care (01) | DRG 385 ==
LOC: ER 16:09 → ERHOLD 23:30 → 2ND 03-21 00:06 → OBSVTOIN 03-21 12:09
PROVIDERS: ADMIT Hospitalist; ATTEND Hospitalist
DX: K50.90 Crohn's disease, unspecified, without complications (principal); K85.10 Biliary acute pancreatitis without necrosis or infection; A09 Infectious gastroenteritis and colitis, unspecified; K26.9 Duodenal ulcer, unspecified as acute or chronic, without hemorrhage or perforation; Z20.822 Contact with and (suspected) exposure to COVID-19
CPT/HCPCS: 36415; 74018; 74177; 74181; 76705; 78226; 80048; 80053; 80061; 81003; 81015; 83690; 83735; 84132; 85025; 85652; 86140; 96372; 99285; A9537; C9113; G0378; J0500; J1170; J2270; J2405; J2543; J2550; J2920; J2930; J3480; J7030; J7512; J7799; Q9967; U0003

== ENCOUNTER 2022-09-16 15:41 | Emergency (ER) | payer OTHER ==
--- OUTSIDE RECORDS SUMMARY | 2022-09-16 15:53 | XMS REPORT | Continuity of Care Document ---
:1985 Author Organization [facility] t Address [address] [place] [address] Care Team Providers Name Role Phone SEVERINO SMART Primary Care Physician Unavailable Severino Smart Attending Clinician Unavailable SONDRA CHAVIRA Attending Clinician Unavailable SONDRA CHAVIRA Attending Clinician Unavailable Armond Moore DO Attending Clinician Blaine Varela Attending Clinician Doctor Unassigned, Wharton Attending Clinician Unavailable Sandee Guillen DO Attending Clinician SANDEE GUILLEN Attending Clinician Unavailable Tim Monae DO Attending Clinician Aris Hill MD Attending Clinician Mary ANDERSEN, Li Attending Clinician Unavailable Clarence Bedoya Attending Clinician Alyssa Lou MD Attending Clinician Sondra Chavira MD Attending Clinician Carmen Kennedy PA-C Attending Clinician Pob, [facility] Main Attending Clinician Unavailable Nurse, [facility] Attending Clinician Unavailable SONDRA CHAVIRA Admitting Clinician Unavailable SANDEE GUILLEN Admitting Clinician Unavailable Sondra Chavira MD Admitting Clinician Payers Payer Name Policy Type Policy Number Effective Date Expiration Date Sanjay morgan [facility] [id number] 2016 HEALTH CHOICE 00:00:00 MEDICAID COMMUNITY [facility] [id number] [facility] HEALTH CHOICE [facility] [id number] [facility] [id number] [facility] [id number] [facility] [id number] [facility] Problems Condition Condition Condition Status Onset Resolution Last Treating Co mments Source Name Details Category Date Date Treatment Clinician Date Status Status Disease Active Univers post post 3-27 ity of [place]osc[place] hysterecto hysterecto Br anch my my Obesity Obesity Disease Active Univers (BMI (BMI 3-13 ity of 30-39.9) 30-39.9) 00:00: [place] [facility] BV BV Disease Active Univers [...] test different positive positive from the original. 04/10/19 - pap smear was normal but HPV 6 was positive. Started on DepoProve ra March 2019. Abdominal Abdominal Disease Active 2019 Overview: Univers pain, pain, 6-19 Formattin ity of generalize generalize 00:00: g of this [place] d d 00 note Medical might be Branch different from the original. Patient followed by GI in [place] Menorrhagi Menorrhagi Disease Active 2019- U nivers a with a with 6-19 ity of regular regular 00:00: cycle cycle 00 Medical Branch Dysmenorrh Dysmenorrh Disease Active U nivers ea ea 6-19 ity of 00:00: [facility] Menorrhagi Menorrhagi Disease Active Overview : Faye a with a with 6-19 Formattin ity of regular regular 00:00: g of this [place] cycle cycle 00 note Medical might be Branch different from the original. March 2019 - DepoProve ra started. 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 01/03/2020 - s/p TLH and b/l salpingec lorraine. Pathology benign with no pathology seen. [id number] Constipati Problem Com mon on, Spirit unspecifie - [facility]I d constipati [facility] on [facility] [id number] GERD Problem Common without Spirit esophagiti [facility] [id number] Hyperlipid Problem Com mon emia, Spirit unspecifie - CHI d hyperlipid [facility] emia [facility] [id number] Loss of Problem Common taste [facility] [id number] Tobacco Problem Commo n use [facility] disorder [facility] [id number] Generalize Problem Com mon d anxiety [facility] disorder [facility] [id number] Primary Problem Common insomnia [facility] [id number] Migraine Problem Comm on without Spirit aura and - CHI without St status [facility] migrainosu Medica l s, not Center intractabl e Spondylosi Spondylosi Problem C ommon s s [facility] [id number] Crohn's Problem Common disease Spirit with - CHI complicati St on, [facility] unspecifie Medica l d Center gastrointe stinal tract location [id number] Autoimmune Problem Com mon disease [facility] Allergies, Adverse Reactions, Alerts Allergy Allergy Status Severity Reaction(s) Onset Inactive Treating Comm ents Source Name Type Date Date Clinician SERTRALI DRUG Active High Unknown-Cmnt Un olayinka NE INGREDI 3-13 ity of 00:00: [address] NO KNOWN Drug Active Univers ALLERGIE Class ity of S [facility] sertrali sertrali Active Unknown Commo n ne ne [facility] - [facility] Social History Social Habit Start Date Stop Date Quantity Comments Source Sex Assigned At Common Sp yas[facility] - [facility] History of Common Spirit - Tobacco Use [facility] Exposure to Not sure University of SARS-CoV-2 [facility] [place] (event) [place] Alcohol intake 2021-08-04 2021-08-04 Ex-drinker University 00:00:00 00:00:00 (finding) [facility] Tobacco Comment 2019-12-31 2019-12-31 1 ppd Universit y of 00:00:00 00:00:00 [facility] Tobacco use and 2019-04-10 2019-04-10 Never used Universit y of exposure 00:00:00 00:00:00 [facility] Smoking Status Start Date Stop Date Source Former Smoker 2022-08-19 00:00:00 2022-08-19 00:00:00 Common S [facility]irit - [facility] Current Smoker 2022-07-25 00:00:00 [facility] Spiri t [facility] Medications Ordered Filled Start Stop Current Ordering Indication Dosage Frequency Signature Comments Components Source Medication Medication Date Date Medication? Clinician (SIG) Name Name diazePAM 2 diazePAM 2 2021-10 No 1{table diazePAM 2 MG MG 10-24 t_as_ne MG 00:00: eded} 00 diazePAM 2 diazePAM 2 2021-10 No 1{table diazePAM 2 MG MG 10-24 t_as_ne MG 00:00: eded} 00 Levocetiriz Levocetiriz 2021-10- No 1{table QD Levocetiri ine ine 0-09-14 t_in_th zine Dihydrochlo Dihydrochlo 00:00: 00:00 e_eveni Dihydrochl ride 5 MG ride 5 MG 00 :00 ng} oride 5 MG Levocetiriz Levocetiriz 2021-10- No 1{table QD Levocetiri ine ine 0-25 - t_in_th zine Dihydrochlo Dihydrochlo 00:00: 00:00 e_eveni Dihydrochl ride 5 MG ride 5 MG 00 :00 ng} oride 5 MG Levocetiriz Levocetiriz 2021-10- No 1{table QD Levocetiri ine ine 0-25 11-23 t_in_th zine Dihydrochlo Dihydrochlo 00:00: 00:00 e_eveni Dihydrochl ride 5 MG ride 5 MG 00 :00 ng} oride 5 MG Levocetiriz Levocetiriz 2021-10- No 1{table QD Levocetiri ine ine 0-25 11-23 t_in_th zine Dihydrochlo Dihydrochlo 00:00: 00:00 e_eveni Dihydrochl ride 5 MG ride 5 MG 00 :00 ng} oride 5 MG Medrol 4 MG Medrol 4 MG 2021-10- No Medrol 4 0-25 10-31 MG 00:00: 00:00 00 :00 Medrol 4 MG Medrol 4 MG 2021-10- No Medrol 4 0-25 10-31 MG 00:00: 00:00 00 :00 Azithromyci Azithromyci 2021-10- No QD Azithromyc n 250 MG n 250 MG 0-25 10-30 in 250 MG 00:00: 00:00 00 :00 Azithromyci Azithromyci 2021-10- No QD Azithromyc n 250 MG n 250 MG 0-25 10-30 in 250 MG 00:00: 00:00 00 :00 [facility] No 40mg Common (Triamcinol (Triamcinol 0-04 S pirit one) one) 00:00: - [facility] 00 [facility]10 No 40mg Common (Triamcinol (Triamcinol 0-04 S pirit one) one) 00:00: - [facility]I 00 [facility] 2021-10 No 40mg Common (Triamcinol (Triamcinol 0-04 S pirit one) one) 00:00: - [facility]I 00 [facility] No 40mg Common (Triamcinol (Triamcinol 0-04 S pirit one) one) 00:00: - [facility]I 00 [facility] 2021-10 No 40mg Common (Triamcinol (Triamcinol 0-04 S pirit one) one) 00:00: - CHI 00 [facility] diazePAM 2 diazePAM 2 2021-0 No 1{table diazePAM 2 MG MG 8-31 t_as_ne MG 00:00: eded} 00 diazePAM 2 diazePAM 2 2021-0 No 1{table diazePAM 2 MG MG 8-31 t_as_ne MG 00:00: eded} 00 diazePAM 2 diazePAM 2 2021-0 No 1{table diazePAM 2 MG MG 8-31 t_as_ne MG 00:00: eded} 00 diazePAM 2 diazePAM 2 2021-0 No 1{table diazePAM 2 MG MG 8-31 t_as_ne MG 00:00: eded} 00 diazePAM 2 diazePAM 2 2021-0 No 1{table diazePAM 2 MG MG 8-31 t_as_ne MG 00:00: eded} 00 diazePAM 2 diazePAM 2 2021-0 No 1{table diazePAM 2 MG MG 8-31 t_as_ne MG 00:00: eded} 00 diazePAM 2 diazePAM 2 2021-0 No 1{table diazePAM 2 MG MG 8-31 t_as_ne MG 00:00: eded} 00 diazePAM 2 diazePAM 2 2021-0 No 1{table diazePAM 2 MG MG 7-07 t_as_ne MG 00:00: eded} 00 diazePAM 2 diazePAM 2 2021-0 No 1{table diazePAM 2 MG MG 7-07 t_as_ne MG 00:00: eded} 00 traMADol traMADol 2021-0 2022- No 1{table QD traMADol HCl 50 MG HCl 50 MG 6-05 28-18 t_as_ne HCl 50 MG 00:00: 00:00 eded} 00 :00 traMADol traMADol 2021-0 2022- No 1{table QD traMADol HCl 50 MG HCl 50 MG 6- 06-18 t_as_ne HCl 50 MG 00:00: 00:00 eded} 00 :00 diazePAM 2 diazePAM 2 2021-0 No 1{table diazePAM 2 MG MG 5-05 t_as_ne MG 00:00: eded} 00 diazePAM 2 diazePAM 2 2021-0 No 1{table diazePAM 2 MG MG 5-05 t_as_ne MG 00:00: eded} 00 diazePAM 2 diazePAM 2 2021-0 No 1{table diazePAM 2 MG MG 5-05 t_as_ne MG 00:00: eded} 00 diazePAM 2 diazePAM 2 2021-0 No 1{table diazePAM 2 MG MG 5-05 t_as_ne MG 00:00: eded} 00 Cyclobenzap Cyclobenzap 2021-0 2- No QD Cyclobenza rine HCl 10 rine HCl 10 3-31 04-30 michelle HCl MG MG 00:00: 00:00 10 MG 00 :00 Cyclobenzap Cyclobenzap 2021-0 2021- No QD Cyclobenza rine HCl 10 rine HCl 10 3-31 04-30 michelle HCl MG MG 00:00: 00:00 10 MG 00 :00 Cyclobenzap Cyclobenzap 2021-0 2021- No QD Cyclobenza rine HCl 10 rine HCl 10 3-31 04-30 michelle HCl MG MG 00:00: 00:00 10 MG 00 :00 Cyclobenzap Cyclobenzap 2021-0 2021- No QD Cyclobenza rine HCl 10 rine HCl 10 3-31 04-30 michelle HCl MG MG 00:00: 00:00 10 MG 00 :00 Kenalog Kenalog 2021-0 No 40mg Common (Triamcinol (Triamcinol 3-30 S pirit one) one) 00:00: - CHI [facility] Toradol Toradol 2021-0 No 60mg Common (Ketorolac) (Ketorolac) 3-30 S pirit 00:00: - CHI [facility] Kenalog Kenalog 2021-0 No 40mg Common (Triamcinol (Triamcinol 3-30 S pirit one) one) 00:00: - CHI [facility] Toradol Toradol 2021-0 No 60mg Common (Ketorolac) (Ketorolac) 3-30 S pirit 00:00: - CHI [facility] Kenalog Kenalog 2021-0 No 40mg Common (Triamcinol (Triamcinol 3-30 S pirit one) one) 00:00: - CHI [facility] Toradol Toradol 2021-0 No 60mg Common (Ketorolac) (Ketorolac) 3-30 S pirit 00:00: - CHI [facility] Kenalog Kenalog 2021-0 No 40mg Common (Triamcinol (Triamcinol 3-30 S pirit one) one) 00:00: - CHI [facility] Toradol Toradol 2021-0 No 60mg Common (Ketorolac) (Ketorolac) 3-30 S pirit 00:00: - CHI [facility] Kenalog Kenalog 2021-0 No 40mg Common (Triamcinol (Triamcinol 3-30 S pirit one) one) 00:00: - CH[facility] Toradol Toradol 2021-0 No 60mg Common (Ketorolac) (Ketorolac) 3-30 S pirit 00:00: - CHI [facility] Kenalog Kenalog 2021-0 No 40mg Common (Triamcinol (Triamcinol 3-30 S pirit one) one) 00:00: - [facility] Toradol Toradol 2021-0 No 60mg Common (Ketorolac) (Ketorolac) 3-30 S pirit 00:00: - CHI [facility] Kenalog Kenalog 2021-0 No 40mg Common (Triamcinol (Triamcinol 3-30 S pirit one) one) 00:00: - CHI [facility] Toradol Toradol 2021-0 No 60mg Common (Ketorolac) (Ketorolac) 3-30 S pirit 00:00: - CHI [facility] Kenalog Kenalog 2021-0 No 40mg Common (Triamcinol (Triamcinol 3-30 S pirit one) one) 00:00: - [facility] Toradol Toradol 2021-0 No 60mg Common (Ketorolac) (Ketorolac) 3-30 S pirit 00:00: - CHI [facility] Kenalog Kenalog 2021-0 No 40mg Common (Triamcinol (Triamcinol 3-30 S pirit one) one) 00:00: - CH[facility] Toradol Toradol 2021-0 No 60mg Common (Ketorolac) (Ketorolac) 3-30 S pirit 00:00: - CHI 00 [facility] Kenalog Kenalog 2021-0 No 40mg Common (Triamcinol (Triamcinol 3-30 S pirit one) one) 00:00: - CHI 00 [facility] Toradol Toradol 2021-0 No 60mg Common (Ketorolac) (Ketorolac) 3-30 S pirit 00:00: - CHI 00 [facility] Kenalog Kenalog 2021-0 No 40mg Common (Triamcinol (Triamcinol 3-30 S pirit one) one) 00:00: - CHI 00 [facility] Toradol Toradol 2021-0 No 60mg Common (Ketorolac) (Ketorolac) 3-30 S pirit 00:00: - CHI 00 [facility] Britany Kenalog 2021-0 No 40mg Common (Triamcinol (Triamcinol 3-30 S pirit one) one) 00:00: - CHI [facility] Toradol Toradol 2021-0 No 60mg Common (Ketorolac) (Ketorolac) 3-30 S pirit 00:00: - CHI 00 [facility] Britany Kenalog 2021-0 No 40mg Common (Triamcinol (Triamcinol 3-30 S pirit one) one) 00:00: - CHI 00 [facility] Toradol Toradol 2021-0 No 60mg Common (Ketorolac) (Ketorolac) 3-30 S pirit 00:00: - CHI 00 [facility] Kenalog Kenalog 2021-0 No 40mg Common (Triamcinol (Triamcinol 3-30 S pirit one) one) 00:00: - CHI 00 [facility] Toradol Toradol 2021-0 No 60mg Common (Ketorolac) (Ketorolac) 3-30 S pirit 00:00: - [facility] 00 [facility]-0 No 40mg Common (Triamcinol (Triamcinol 3-30 S pirit one) one) 00:00: - CHI 00 [facility] Toradol Toradol 2021-0 No 60mg Common (Ketorolac) (Ketorolac) 3-30 S pirit 00:00: - CHI 00 [facility] Kenalog Kenalog 2021-0 No 40mg Common (Triamcinol (Triamcinol 3-30 S pirit one) one) 00:00: - CHI 00 [facility] Toradol Toradol 2021-0 No 60mg Common (Ketorolac) (Ketorolac) 3-30 S pirit 00:00: - CHI 00 [facility] Kenalog Kenalog 2021-0 No 40mg Common (Triamcinol (Triamcinol 3-30 S pirit one) one) 00:00: - CHI 00 [facility] Toradol Toradol 2021-0 No 60mg Common (Ketorolac) (Ketorolac) 3-30 S pirit 00:00: - CHI 00 [facility] Britany Kenalog 2021-0 No 40mg Common (Triamcinol (Triamcinol 3-30 S pirit one) one) 00:00: - CH[facility] Toradol Toradol 2021-0 No 60mg Common (Ketorolac) (Ketorolac) 3-30 S pirit 00:00: - CHI 00 [facility] Britany Kenalog 2021-0 No 40mg Common (Triamcinol (Triamcinol 3-30 S pirit one) one) 00:00: - CHI 00 [facility] Toradol Toradol 2021-0 No 60mg Common (Ketorolac) (Ketorolac) 3-30 S pirit 00:00: - CHI 00 [facility] Kenalog Kenalog 2021-0 No 40mg Common (Triamcinol (Triamcinol 3-30 S pirit one) one) 00:00: - CHI 00 [facility] Toradol Toradol 2021-0 No 60mg Common (Ketorolac) (Ketorolac) 3-30 S pirit 00:00: - CHI 00 [facility] Kenalog Kenalog 2021-0 No 40mg Common (Triamcinol (Triamcinol 3-30 S pirit one) one) 00:00: - CH[facility] Toradol Toradol 2021-0 No 60mg Common (Ketorolac) (Ketorolac) 3-30 S pirit 00:00: - CHI 00 [facility] Kenalog Kenalog 2021-0 No 40mg Common (Triamcinol (Triamcinol 3-30 S pirit one) one) 00:00: - CHI 00 [facility] Toradol Toradol 2021-0 No 60mg Common (Ketorolac) (Ketorolac) 3-30 S pirit 00:00: - CHI 00 [facility] Tamiflu 75 Tamiflu 75 2021-0 No 1{capsu BID Tamiflu 75 MG MG 3-03 le} MG 00:00: 00 Tamiflu 75 Tamiflu 75 2021-0 No 1{capsu BID Tamiflu 75 MG MG 3-03 le} MG 00:00: 00 Tamiflu 75 Tamiflu 75 2021-0 No 1{capsu BID Tamiflu 75 MG MG 3-03 le} MG 00:00: 00 Tamiflu 75 Tamiflu 75 2021-0 No 1{capsu BID Tamiflu 75 MG MG 3-03 le} MG 00:00: 00 Tamiflu 75 Tamiflu 75 2021-0 No 1{capsu BID Tamiflu 75 MG MG 3-03 le} MG 00:00: 00 Tamiflu 75 Tamiflu 75 2021-0 No 1{capsu BID Tamiflu 75 MG MG 3-03 le} MG 00:00: 00 Tamiflu 75 Tamiflu 75 2021-0 No 1{capsu BID Tamiflu 75 MG MG 3-03 le} MG 00:00: 00 Tamiflu 75 Tamiflu 75 2021-0 No 1{capsu BID Tamiflu 75 MG MG 3-03 le} MG 00:00: 00 Topiramate Topiramate 2021-0 No QD Topiramate 50 MG 50 MG 3-02 50 MG 00:00: 00 diazePAM 2 diazePAM 2 2021-0 No 1{table diazePAM 2 MG MG 3-02 t_as_ne MG 00:00: eded} 00 diazePAM 2 diazePAM 2 2021-0 No 1{table diazePAM 2 MG MG 3-02 t_as_ne MG 00:00: eded} 00 diazePAM 2 diazePAM 2 2021-0 No 1{table diazePAM 2 MG MG 3-02 t_as_ne MG 00:00: eded} 00 diazePAM 2 diazePAM 2 2021-0 No 1{table diazePAM 2 MG MG 3-02 t_as_ne MG 00:00: eded} 00 diazePAM 2 diazePAM 2 2021- No 1{table diazePAM 2 MG MG 3-02 t_as_ne MG 00:00: eded} 00 diazePAM 2 diazePAM 2 2021- No 1{table diazePAM 2 MG MG 3-02 t_as_ne MG 00:00: eded} 00 diazePAM 2 diazePAM 2 2021- No 1{table diazePAM 2 MG MG 3-02 t_as_ne MG 00:00: eded} 00 diazePAM 2 diazePAM 2 2021- No 1{table diazePAM 2 MG MG 3-02 t_as_ne MG 00:00: eded} 00 diazePAM 2 diazePAM 2 2021- No 1{table diazePAM 2 MG MG 3-02 t_as_ne MG 00:00: eded} 00 diazePAM 2 diazePAM 2 2020-10 No 1{table diazePAM 2 MG MG 2-01 t_as_ne MG 00:00: eded} 00 diazePAM 2 diazePAM 2 2020-10 No 1{table diazePAM 2 MG MG 2-01 t_as_ne MG 00:00: eded} 00 diazePAM 2 diazePAM 2 2020-10 No 1{table diazePAM 2 MG MG 2-01 t_as_ne MG 00:00: eded} 00 Emgality Emgality 2020-10- No Emgality 120 MG/ML 120 MG/ML 201-31 120 MG/ML 00:00: 00:00 00 :00 Emgality Emgality 2020-10- No Emgality 120 MG/ML 120 MG/ML 201-31 120 MG/ML 00:00: 00:00 00 :00 Emgality Emgality 2020-10- No Emgality 120 MG/ML 120 MG/ML 201-20 120 MG/ML 00:00: 00:00 00 :00 Levsin Levsin 2020-10- No 1{table Levsin 0.125 MG 0.125 MG 0-14 10-18 t_as_ne 0.125 MG 00:00: 00:00 eded} 00 :00 Levsin Levsin 2020-10- No 1{table Levsin 0.125 MG 0.125 MG 0-14 10-18 t_as_ne 0.125 MG 00:00: 00:00 eded} 00 :00 piperacilli 2020-10- No 3.375g 3.375 g, Univers n-tazobacta 0-13 10-13 IV ity of m (ZOSYN) 18:15: 18:10 [place] 3.375 g in 00 :00 ONCE, 1 Medica l NaCl 0.9% dose, On Branch (NS) 100 mL Wed MINI-BAG 08/04/21 at 1315, Administer over 30 Minutes, 100 mL
Reas on for Anti-Infec tive: Empiric Therapy for Suspected Infection< br>Empiric Therapy Site: Abdominal< br>Duratio n of therapy: 72 hours ondansetron 2020-10- No 4mg 4 mg, Slow Univers (ZOFRAN 0-13 10-13 IV Push, ity of (PF)) 17:30: 16:38 ONCE, 1 [place] injection 4 00 :00 dose, On Medi gabriel mg Mon Branch 08/04/21 at 1230, Routine iopamidol 2020-10- No [id number] 120mL 120 mL, Univers (ISOVUE 0-13 10-13 Intravenou ity o f 370-500 mL) 16:48: 16:48 s, ONCE, 1 [place] injection 00 :00 dose, On Medica l [address] [facility] Branch 08/04/21 at 1200, Routine NaCl 0.9% 2020-10- No 1000mL at 999 Uni vers (NS) bolus 0-13 10-13 mL/hr, ity of infusion 16:30: 18:30 1,000 mL, Jose as 1,000 mL 00 :00 IV Medical Infusion, Branch ONCE, 1 dose, On Mon08/04/21 at 1130, STAT morpHINE 2020-10 Yes 4mg 4 mg, Slow Uni vers injection 4 0-13 IV Push, ity of mg 16:26: Q4HPRN, [place] 36 Starting Medical on Mon Branch 08/04/21 at 1126, Until Discontinu ed, Routine, Pain (scale 7-10) ondansetron 2020-10 Yes [id number] 4mg Take 1 Univers 4 mg 0-13 tablet by ity of disintegrat 00:00: mouth [place] ing tablet 00 every 8 Medica l (eight) Branch hours as needed for Nausea and Vomiting (N/V). Ondansetron Ondansetron 2020-0 No 1{table Ondansetro 4 MG 4 MG 8-12 t_on_th n 4 MG 00:00: e_tong e_and_a llow_to _dissol ve} Ibuprofen Ibuprofen 2020-0 No TID Ibuprofen 600 MG 600 MG 8-12 600 MG 00:00: 00 Ibuprofen Ibuprofen 2020-0 No TID Ibuprofen 600 MG 600 MG 8-12 600 MG 00:00: 00 Ondansetron Ondansetron 2020-0 No 1{table Ondansetro 4 MG 4 MG 8-12 t_on_th n 4 MG 00:00: e_ e_and_a llow_to _dissol ve} Ibuprofen Ibuprofen 2020-0 No TID Ibuprofen 600 MG 600 MG 8-12 600 MG 00:00: 00 Ondansetron Ondansetron 2020-0 No 1{table Ondansetro 4 MG 4 MG 8-12 t_on_th n 4 MG 00:00: e_ e_and_a llow_to _dissol ve} Ibuprofen Ibuprofen 2020-0 No TID Ibuprofen 600 MG 600 MG 8-12 600 MG 00:00: 00 Ondansetron Ondansetron 2020-0 No 1{table Ondansetro 4 MG 4 MG 8-12 t_on_th n 4 MG 00:00: e_tong e_and_a llow_to _dissol ve} Ibuprofen Ibuprofen 2020-0 No TID Ibuprofen 600 MG 600 MG 8-12 600 MG 00:00: 00 Ibuprofen Ibuprofen 1-0 No TID Ibuprofen 600 MG 600 MG 8-12 600 MG 00:00: 00 Ibuprofen Ibuprofen 1-0 No TID Ibuprofen 600 MG 600 MG 8-12 600 MG 00:00: 00 Ibuprofen Ibuprofen 2021-0 No TID Ibuprofen 600 MG 600 MG 8-12 600 MG 00:00: 00 Ibuprofen Ibuprofen 2021-0 No TID Ibuprofen 600 MG 600 MG 8-12 600 MG 00:00: 00 Ibuprofen Ibuprofen 2021-0 No TID Ibuprofen 600 MG 600 MG 8-12 600 MG 00:00: 00 Ibuprofen Ibuprofen 2020-0 No TID Ibuprofen 600 MG 600 MG 8-12 600 MG 00:00: 00 Ibuprofen Ibuprofen 202-0 No TID Ibuprofen 600 MG 600 MG 8-12 600 MG 00:00: 00 Ibuprofen Ibuprofen 202-0 No TID Ibuprofen 600 MG 600 MG 8-12 600 MG 00:00: 00 Ibuprofen Ibuprofen 2021-0 No TID Ibuprofen 600 MG 600 MG 8-12 600 MG 00:00: 00 Ibuprofen Ibuprofen 2021-0 No TID Ibuprofen 600 MG 600 MG 8-12 600 MG 00:00: 00 Ibuprofen Ibuprofen 202-0 No TID Ibuprofen 600 MG 600 MG 8-12 600 MG 00:00: 00 ibuprofen 202-0 2021- No 600mg 600 mg, Uni vers (IBU) 05-20 Oral, ity of tablet 600 22:00: 09:59 ONCE, 1 Jose as mg 00 :00 dose, [facility] 05/20/21 at Branch 1700, [place] ibuprofen 2020-0 Yes [id number] 600mg Take 1 Univers 600 mg 05-20 9107 tablet by ity of tablet 00:00: mouth [place] 00 every 6 Medical (six) Branch hours as needed for Pain (scale 4-6). acetaminoph 0 Yes [id number] 1{tbl} Take 1 Un olayinka en-codeine 7-29 tablet by ity of 300-30 mg 00:00: mouth [place] tablet 00 every 4 Medical (four) Branch hours as needed for Pain (scale 4-6). Indication s: acute pain ibuprofen 0 Yes [id number] 600mg Take 1 Univers 600 mg - 9107 tablet by ity of tablet 00:00: mouth [place] 00 every 6 Medical (six) Branch hours as needed for Pain (scale 4-6). acetaminoph 2020-0 Yes [id number] 1{tbl} Take 1 Un olayinka en-codeine 7-29 tablet by ity of 300-30 mg 00:00: mouth [place] tablet 00 every 4 Medical (four) Branch hours as needed for Pain (scale 4-6). Indication s: acute pain Promethazin Promethazin 2020-0 No 1{table Promethazi e HCl 12.5 e HCl 12.5 4-07 t_as_ne ne HCl MG MG 00:00: eded} 12.5 MG 00 Pseudoeph-B Pseudoeph-B 2021-0 No Pseudoeph- romphen-DM romphen-DM 4-07 Bromphen-D 30-2-10 30-2-10 00:00: M 30-2-10 MG/5ML MG/5ML 00 MG/5ML Promethazin Promethazin 2021-0 No 1{table Promethazi e HCl 12.5 e HCl 12.5 4-07 t_as_ne ne HCl MG MG 00:00: eded} 12.5 MG 00 Pseudoeph-B Pseudoeph-B 2021-0 No Pseudoeph- romphen-DM romphen-DM 4-07 Bromphen-D 30-2-10 30-2-10 00:00: M 30-2-10 MG/5ML MG/5ML 00 MG/5ML Promethazin Promethazin 2021-0 No 1{table Promethazi e HCl 12.5 e HCl 12.5 4-07 t_as_ne ne HCl MG MG 00:00: eded} 12.5 MG 00 Pseudoeph-B Pseudoeph-B 2021-0 No Pseudoeph- romphen-DM romphen-DM 4-07 Bromphen-D 30-2-10 30-2-10 00:00: M 30-2-10 MG/5ML MG/5ML 00 MG/5ML Promethazin Promethazin 2021-0 No 1{table Promethazi e HCl 12.5 e HCl 12.5 4-07 t_as_ne ne HCl MG MG 00:00: eded} 12.5 MG 00 Pseudoeph-B Pseudoeph-B 2021-0 No Pseudoeph- romphen-DM romphen-DM 4-07 Bromphen-D 30-2-10 30-2-10 00:00: M 30-2-10 MG/5ML MG/5ML 00 MG/5ML Promethazin Promethazin 2021-0 No 1{table Promethazi e HCl 12.5 e HCl 12.5 4-07 t_as_ne ne HCl MG MG 00:00: eded} 12.5 MG 00 Promethazin Promethazin 2021-0 No 1{table Promethazi e HCl 12.5 e HCl 12.5 4-07 t_as_ne ne HCl MG MG 00:00: eded} 12.5 MG 00 Promethazin Promethazin 2021-0 No 1{table Promethazi e HCl 12.5 e HCl 12.5 4-07 t_as_ne ne HCl MG MG 00:00: eded} 12.5 MG 00 Promethazin Promethazin 2021-0 No 1{table Promethazi e HCl 12.5 e HCl 12.5 4-07 t_as_ne ne HCl MG MG 00:00: eded} 12.5 MG 00 Promethazin Promethazin 2021-0 No 1{table Promethazi e HCl 12.5 e HCl 12.5 4-07 t_as_ne ne HCl MG MG 00:00: eded} 12.5 MG 00 Promethazin Promethazin 1-0 No 1{table Promethazi e HCl 12.5 e HCl 12.5 4-07 t_as_ne ne HCl MG MG 00:00: eded} 12.5 MG 00 Promethazin Promethazin 2021-0 No 1{table Promethazi e HCl 12.5 e HCl 12.5 4-07 t_as_ne ne HCl MG MG 00:00: eded} 12.5 MG 00 Promethazin Promethazin 1-0 No 1{table Promethazi e HCl 12.5 e HCl 12.5 4-07 t_as_ne ne HCl MG MG 00:00: eded} 12.5 MG 00 Promethazin Promethazin 2021-0 No 1{table Promethazi e HCl 12.5 e HCl 12.5 4-07 t_as_ne ne HCl MG MG 00:00: eded} 12.5 MG 00 Promethazin Promethazin 2021-0 No 1{table Promethazi e HCl 12.5 e HCl 12.5 4-07 t_as_ne ne HCl MG MG 00:00: eded} 12.5 MG 00 Promethazin Promethazin 2021-0 No 1{table Promethazi e HCl 12.5 e HCl 12.5 4-07 t_as_ne ne HCl MG MG 00:00: eded} 12.5 MG 00 Promethazin Promethazin No 1{table Promethazi e HCl 12.5 e HCl 12.5 01-27 t_as_ne ne HCl MG MG 00:00: eded} 12.5 MG 00 acetaminoph No 650mg 650 mg, U nivers en [...] approving Restricted medication : SANDEE GUILLEN ondansetron No 4mg 4 mg, Slow [facility] (ZOFRAN 01-21 IV Push, ity of (PF)) 20:30: 19:40 ONCE, 1 [place] injection 4 00 :00 dose, [facility] Med ical mg 01/21/21 at Branch 1530, [place] NaCl 0.9% No 1000mL at 999 Uni vers (NS) bolus 01-21 mL/hr, ity of infusion 19:30: 21:15 1,000 mL, Jose as 1,000 mL 00 :00 IV Medical Infusion, Branch ONCE, 1 dose, Catherine 01/21/21 at 1430, [place] ondansetron Yes [id number] 4mg Take 1 Univers (ZOFRAN 4-01 tablet by ity of ODT) 4 mg 00:00: mouth [place] disintegrat 00 every 8 Medic al ing tablet (eight) Branch hours as needed for Nausea and Vomiting (N/V). ondansetron Yes [id number] 4mg Take 1 [facility] (ZOFRAN 4-01 tablet by ity of ODT) 4 mg 00:00: mouth [place] disintegrat 00 every 8 Medic al ing tablet (eight) Branch hours as needed for Nausea and Vomiting (N/V). ondansetron Yes [id number] 4mg Take 1 [facility] (ZOFRAN 4-01 tablet by ity of ODT) 4 mg 00:00: mouth [place] disintegrat 00 every 8 Medic al ing tablet (eight) Branch hours as needed for Nausea and Vomiting (N/V). ondansetron 2020- No [id number] 4mg Take 1 [facility] (ZOFRAN 4-01 10-13 [...] mg 10/20/20 Branch at 0900, [place] morpHINE 2019-10- No 4mg 4 mg, Slow Un olayinka injection 4 10-20 IV Push, ity of mg 15:00: 14:03 ONCE, 1 [place] 00 :00 dose, Tue Medical 10/20/20 Branch at 0900, STAT diazePAM 2 2019-10 Yes [id number] 2mg Take 1 U nivers mg tablet 2-29 tablet by ity o f 00:00: mouth 3 [place] 00 (three) Medical times Branch daily as needed for Muscle Spasms. ibuprofen 2019-10 Yes [id number] 800mg Take 1 U nivers 800 mg 2-29 tablet by ity of tablet 00:00: mouth [place] 00 every 8 Medical (eight) Branch hours. diazePAM 2 2019-10 Yes [id number] 2mg Take 1 U nivers mg tablet 2-29 tablet by ity o f 00:00: mouth 3 [place] (three) Medical times Branch daily as needed for Muscle Spasms. ibuprofen 2019-10 Yes [id number] 800mg Take 1 U nivers 800 mg 2-29 tablet by ity of tablet 00:00: mouth [place] 00 every 8 Medical (eight) Branch hours. diazePAM 2 2019-10 Yes [id number] 2mg Take 1 U nivers mg tablet 2-29 tablet by ity o f 00:00: mouth 3 [place] 00 (three) Medical times Branch daily as needed for Muscle Spasms. ibuprofen 2019-10 Yes [id number] 800mg Take 1 U nivers 800 mg 2-29 tablet by ity of tablet 00:00: mouth [place] 00 every 8 Medical (eight) Branch hours. diazePAM 2 2019-10 Yes [id number] 2mg Take 1 U nivers mg tablet 2-29 tablet by ity o f 00:00: mouth 3 (three) Medical times Branch daily as needed for Muscle Spasms. ibuprofen 2019-10 Yes [id number] 800mg Take 1 U nivers 800 mg 2-29 tablet by ity of tablet 00:00: mouth [place] 00 every 8 Medical (eight) Branch hours. diazePAM 2 2019-10 Yes [id number] 2mg Take 1 U nivers mg tablet 2-29 tablet by ity o f 00:00: mouth 3 00 (three) Medical times Branch daily as needed for Muscle Spasms. ibuprofen 2019-10 Yes [id number] 800mg Take 1 U nivers 800 mg 2-29 tablet by ity of tablet 00:00: mouth [place] 00 every 8 Medical (eight) Branch hours. diazePAM 2 2019-10 Yes [id number] 2mg Take 1 U nivers mg tablet 2-29 tablet by ity o f 00:00: mouth 3 [place] 00 (three) Medical times Branch daily as needed for Muscle Spasms. ibuprofen 2019-10 Yes [id number] 800mg Take 1 U nivers 800 mg 2-29 tablet by ity of tablet 00:00: mouth [place] 00 every 8 Medical (eight) Branch hours. ibuprofen 2020- No 600mg 600 mg, Uni vers (IBU) 07-15 Oral, ity of tablet 600 22:45: 21:58 ONCE, 1 [place] mg 00 :00 dose, Wed Medical 07/15/20 at Branch 1745, [place] dicyclomine 2020-0 Yes [id number] 10mg Take 1 [facility] (BENTYL) 10 9-23 capsule by it y of mg capsule 00:00: mouth 4 [place] (four) Medical times Branch daily as needed for Abdominal pain. dicyclomine 2020-0 Yes [id number] 10mg Take 1 [facility] (BENTYL) 10 9-23 capsule by it y of mg capsule 00:00: mouth 4 [place] (four) Medical times Branch daily as needed for Abdominal pain. dicyclomine 2020-0 Yes [id number] 10mg Take 1 [facility] (BENTYL) 10 9-23 capsule by it y of mg capsule 00:00: mouth 4 [place] (four) Medical times Branch daily as needed for Abdominal pain. dicyclomine 2020-0 Yes [id number] 10mg Take 1 [facility] (BENTYL) 10 9-23 capsule by it y of mg capsule 00:00: mouth 4 [place] (four) Medical times Branch daily as needed for Abdominal pain. dicyclomine 2020-0 Yes [id number] 10mg Take 1 [facility] (BENTYL) 10 9-23 capsule by it y of mg capsule 00:00: mouth 4 [place] (four) Medical times Branch daily as needed for Abdominal pain. dicyclomine 2020-0 Yes [id number] 10mg Take 1 [facility] (BENTYL) 10 9-23 capsule by it y of mg capsule 00:00: mouth 4 [place] (four) Medical times Branch daily as needed for Abdominal pain. dicyclomine 2020-0 Yes [id number] 10mg Take 1 [facility] (BENTYL) 10 9-23 capsule by it y of mg capsule 00:00: mouth 4 [place] (four) Medical times Branch daily as needed for Abdominal pain. dicyclomine 2020-0 Yes [id number] 10mg Take 1 [facility] (BENTYL) 10 9-23 capsule by it y of mg capsule 00:00: mouth 4 [place] 00 (four) Medical times Branch daily as needed for Abdominal pain. ProAir HFA ProAir HFA 2020-0 Yes Severino 2 puffs as Common 8-11 Smart needed Spirit 00:00: - [facility] 00 [facility] ProAir HFA ProAir HFA 2020-0 No 2{puffs ProAir HFA 108 (90 108 (90 8-11 _as_nee 108 (90 Base) Base) 00:00: ded} Base) MCG/ACT MCG/ACT 00 MCG/ACT ProAir HFA ProAir HFA 2020-0 No 2{puffs ProAir HFA 108 (90 108 (90 8-11 _as_nee 108 (90 Base) Base) 00:00: ded} Base) MCG/ACT MCG/ACT 00 MCG/ACT ProAir HFA ProAir HFA 2020-0 No 2{puffs ProAir HFA 108 (90 108 (90 8-11 _as_nee 108 (90 Base) Base) 00:00: ded} Base) MCG/ACT MCG/ACT 00 MCG/ACT ProAir HFA ProAir HFA 2020-0 No 2{puffs ProAir HFA 108 (90 108 (90 8-11 _as_nee 108 (90 Base) Base) 00:00: ded} Base) MCG/ACT MCG/ACT 00 MCG/ACT ProAir HFA ProAir HFA 2020-0 No 2{puffs ProAir HFA 108 (90 108 (90 8-11 _as_nee 108 (90 Base) Base) 00:00: ded} Base) MCG/ACT MCG/ACT 00 MCG/ACT ProAir HFA ProAir HFA 2020-0 No 2{puffs ProAir HFA 108 (90 108 (90 8-11 _as_nee 108 (90 Base) Base) 00:00: ded} Base) MCG/ACT MCG/ACT 00 MCG/ACT ProAir HFA ProAir HFA 2020-0 No 2{puffs ProAir HFA 108 (90 108 (90 8-11 _as_nee 108 (90 Base) Base) 00:00: ded} Base) MCG/ACT MCG/ACT 00 MCG/ACT ProAir HFA ProAir HFA 2020-0 No 2{puffs ProAir HFA 108 (90 108 (90 8-11 _as_nee 108 (90 Base) Base) 00:00: ded} Base) MCG/ACT MCG/ACT 00 MCG/ACT ProAir HFA ProAir HFA 2020-0 No 2{puffs ProAir HFA 108 (90 108 (90 8-11 _as_nee 108 (90 Base) Base) 00:00: ded} Base) MCG/ACT MCG/ACT 00 MCG/ACT ProAir HFA ProAir HFA 2020-0 No 2{puffs ProAir HFA 108 (90 108 (90 8-11 _as_nee 108 (90 Base) Base) 00:00: ded} Base) MCG/ACT MCG/ACT 00 MCG/ACT ProAir HFA ProAir HFA 2020-0 No 2{puffs ProAir HFA 108 (90 108 (90 8-11 _as_nee 108 (90 Base) Base) 00:00: ded} Base) MCG/ACT MCG/ACT 00 MCG/ACT ProAir HFA ProAir HFA 2020-0 No 2{puffs ProAir HFA 108 (90 108 (90 8-11 _as_nee 108 (90 Base) Base) 00:00: ded} Base) MCG/ACT MCG/ACT 00 MCG/ACT ProAir HFA ProAir HFA 2020-0 No 2{puffs ProAir HFA 108 (90 108 (90 8-11 _as_nee 108 (90 Base) Base) 00:00: ded} Base) MCG/ACT MCG/ACT 00 MCG/ACT ProAir HFA ProAir HFA 2020-0 No 2{puffs ProAir HFA 108 (90 108 (90 8-11 _as_nee 108 (90 Base) Base) 00:00: ded} Base) MCG/ACT MCG/ACT 00 MCG/ACT ProAir HFA ProAir HFA 2020-0 No 2{puffs ProAir HFA 108 (90 108 (90 8-11 _as_nee 108 (90 Base) Base) 00:00: ded} Base) MCG/ACT MCG/ACT 00 MCG/ACT ProAir HFA ProAir HFA 2020-0 No 2{puffs ProAir HFA 108 (90 108 (90 8-11 _as_nee 108 (90 Base) Base) 00:00: ded} Base) MCG/ACT MCG/ACT 00 MCG/ACT ACETAMINOPH 2020-0 2020- No Take by Ector bhagat EN EXTRA 01-16 mouth. ity of STRENGTH 18:34: 00:00 [place] ORAL 08 :00 Medical Branch ACETAMINOPH 2020-0 2020- No Take by Un olayinka EN EXTRA 3-27 -27 mouth. ity of STRENGTH 18:34: 00:00 [place] ORAL 08 :00 Medical Branch ACETAMINOPH 2020-0 2020- No Take by Un olayinka EN EXTRA 3-27 - mouth. ity of STRENGTH 18:34: 00:00 [place] ORAL 08 :00 Medical Branch ACETAMINOPH 2020-0 2020- No Take by Un olayinka EN EXTRA 3-27 - mouth. ity of STRENGTH 18:34: 00:00 [place] ORAL 08 :00 Medical Branch traMADol 50 2020-0 Yes [id number] 50mg Take 1 Univers mg tablet 3-27 tablet by ity o f 00:00: mouth [place] 00 every 8 Medical (eight) Branch hours as needed (moderate pain). traMADol 50 2020-0 Yes [id number] 50mg Take 1 [facility] mg tablet 3-27 tablet by ity o f 00:00: mouth [place] 00 every 8 Medical (eight) Branch hours as needed (moderate pain). traMADol 50 2020-0 Yes [id number] 50mg Take 1 [facility] mg tablet 3-27 tablet by ity o f 00:00: mouth [place] 00 every 8 Medical (eight) Branch hours as needed (moderate pain). traMADol 50 2020-0 Yes [id number] 50mg Take 1 [facility] mg tablet 3-27 tablet by ity o f 00:00: mouth [place] 00 every 8 Medical (eight) Branch hours as needed (moderate pain). traMADol 50 2020-0 Yes [id number] 50mg Take 1 [facility] mg tablet 3-27 tablet by ity o f 00:00: mouth [place] 00 every 8 Medical (eight) Branch hours as needed (moderate pain). traMADol 50 2020-0 Yes [id number] 50mg Take 1 [facility] mg tablet 3-27 tablet by ity o f 00:00: mouth [place] 00 every 8 Medical (eight) Branch hours as needed (moderate pain). traMADol 50 2020-0 Yes [id number] 50mg Take 1 [facility] mg tablet 3-27 tablet by ity o f 00:00: mouth [place] 00 every 8 Medical (eight) Branch hours as needed (moderate pain). traMADol 50 2020-0 Yes [id number] 50mg Take 1 [facility] mg tablet 3-27 tablet by ity o f 00:00: mouth [place] 00 every 8 Medical (eight) Branch hours as needed (moderate pain). traMADol 50 2020-0 Yes [id number] 50mg Take 1 [facility] mg tablet 3-27 tablet by ity o f 00:00: mouth [place] 00 every 8 Medical (eight) Branch hours as needed (moderate pain). traMADol 50 2020-0 Yes [id number] 50mg Take 1 [facility] mg tablet 3-27 tablet by ity o f 00:00: mouth [place] 00 every 8 Medical (eight) Branch hours as needed (moderate pain). traMADol 50 2020-0 Yes [id number] 50mg Take 1 [facility] mg tablet 3-27 tablet by ity o f 00:00: mouth [place] 00 every 8 Medical (eight) Branch hours as needed (moderate pain). traMADol 50 2020-0 Yes [id number] 50mg Take 1 [facility] mg tablet 3-27 tablet by ity o f 00:00: mouth [place] 00 every 8 Medical (eight) Branch hours as needed (moderate pain). traMADol 50 2020-0 Yes [id number] 50mg Take 1 [facility] mg tablet 3-27 tablet by ity o f 00:00: mouth [place] 00 every 8 Medical (eight) Branch hours as needed (moderate pain). traMADol 50 2020-0 Yes [id number] 50mg Take 1 [facility] mg tablet 3-27 tablet by ity o f 00:00: mouth [place] 00 every 8 Medical (eight) Branch hours as needed (moderate pain). traMADol 50 2020-0 Yes [id number] 50mg Take 1 [facility] mg tablet 3-27 tablet by ity o f 00:00: mouth [place] 00 every 8 Medical (eight) Branch hours as needed (moderate pain). traMADol 50 2020-0 Yes [id number] 50mg Take 1 [facility] mg tablet 3-27 tablet by ity o f 00:00: mouth [place] 00 every 8 Medical (eight) Branch hours as needed (moderate pain). traMADol 50 2020-0 Yes [id number] 50mg Take 1 [facility] mg tablet 3-27 tablet by ity o f 00:00: mouth [place] 00 every 8 Medical (eight) Branch hours as needed (moderate pain). traMADol 50 2020-0 Yes [id number] 50mg Take 1 [facility] mg tablet 3-27 tablet by ity o f 00:00: mouth [place] 00 every 8 Medical (eight) Branch hours as needed (moderate pain). traMADol 50 2020-0 Yes [id number] 50mg Take 1 [facility] mg tablet 3-27 tablet by ity o f 00:00: mouth [place] 00 every 8 Medical (eight) Branch hours as needed (moderate pain). OMEPRAZOLE 2020-0 Yes 40mg Take 40 mg U nivers ORAL 3-16 by mouth. ity of 14:17: [address] ACETAMINOPH 2020-0 Yes Take by Uni vers EN EXTRA 3-16 mouth. ity of STRENGTH 14:17: [address] Branch BUPROPION 2020-0 Yes Take by Unive rs HCL ORAL 3-16 mouth. ity of 14:17: [address] OMEPRAZOLE 2020-0 Yes 40mg Take 40 mg U nivers ORAL 3-16 by mouth. ity of 14:17: [address] ACETAMINOPH 2020-0 Yes Take by Uni vers EN EXTRA 3-16 mouth. ity of STRENGTH 14:17: [address] BUPROPION 2020-0 Yes Take by Unive rs HCL ORAL 3-16 mouth. ity of 14:17: [address] OMEPRAZOLE 2020-0 Yes 40mg Take 40 mg U nivers ORAL 3-16 by mouth. ity of 14:17: [address] ACETAMINOPH 2020-0 Yes Take by Uni vers EN EXTRA 3-16 mouth. ity of STRENGTH 14:17: [address] Branch BUPROPION 2020-0 Yes Take by Unive rs HCL ORAL 3-16 mouth. ity of 14:17: [address] OMEPRAZOLE 2020-0 Yes 40mg Take 40 mg U nivers ORAL 3-16 by mouth. ity of 14:17: [address] ACETAMINOPH 2020-0 Yes Take by Uni vers EN EXTRA 3-16 mouth. ity of STRENGTH 14:17: [address] Branch BUPROPION 2020-0 Yes Take by Unive rs HCL ORAL 3-16 mouth. ity of 14:17: [address] OMEPRAZOLE 2020-0 Yes 40mg Take 40 mg U nivers ORAL 3-16 by mouth. ity of 14:17: [address] BUPROPION 2020-0 Yes Take by Unive rs HCL ORAL 3-16 mouth. ity of 14:17: [address] OMEPRAZOLE 2020-0 Yes 40mg Take 40 mg U nivers ORAL 3-16 by mouth. ity of 14:17: [address] BUPROPION 2020-0 Yes Take by Unive rs HCL ORAL 3-16 mouth. ity of 14:17: [address] OMEPRAZOLE 2020-0 Yes 40mg Take 40 mg U nivers ORAL 3-16 by mouth. ity of 14:17: [address] BUPROPION 2020-0 Yes Take by Unive rs HCL ORAL 3-16 mouth. ity of 14:17: [address] OMEPRAZOLE 2020-0 Yes 40mg Take 40 mg U nivers ORAL 3-16 by mouth. ity of 14:17: [address] BUPROPION 2020-0 Yes Take by Unive rs HCL ORAL 3-16 mouth. ity of 14:17: [address] OMEPRAZOLE 2020-0 Yes 40mg Take 40 mg U nivers ORAL 3-16 by mouth. ity of 14:17: [address] BUPROPION 2020-0 Yes Take by Unive rs HCL ORAL 3-16 mouth. ity of 14:17: [address] OMEPRAZOLE 2020-0 Yes 40mg Take 40 mg U nivers ORAL 3-16 by mouth. ity of 14:17: [address] BUPROPION 2020-0 Yes Take by Unive rs HCL ORAL 3-16 mouth. ity of 14:17: [address] OMEPRAZOLE 2020-0 Yes 40mg Take 40 mg U nivers ORAL 3-16 by mouth. ity of 14:17: [address] BUPROPION 2020-0 Yes Take by Unive rs HCL ORAL 3-16 mouth. ity of 14:17: [address] OMEPRAZOLE 2020-0 Yes 40mg Take 40 mg U nivers ORAL 3-16 by mouth. ity of 14:17: [address] BUPROPION 2020-0 Yes Take by Unive rs HCL ORAL 3-16 mouth. ity of 14:17: [address] OMEPRAZOLE 2020-0 Yes 40mg Take 40 mg U nivers ORAL 3-16 by mouth. ity of 14:17: [address] BUPROPION 2020-0 Yes Take by Unive rs HCL ORAL 3-16 mouth. ity of 14:17: [address] OMEPRAZOLE 2020-0 Yes 40mg Take 40 mg U nivers ORAL 3-16 by mouth. ity of 14:17: [address] BUPROPION 2020-0 Yes Take by Unive rs HCL ORAL 3-16 mouth. ity of 14:17: [address] OMEPRAZOLE 2020-0 Yes 40mg Take 40 mg U nivers ORAL 3-16 by mouth. ity of 14:17: [address] BUPROPION 2020-0 Yes Take by Unive rs HCL ORAL 3-16 mouth. ity of 14:17: [address] OMEPRAZOLE 2020-0 Yes 40mg Take 40 mg U nivers ORAL 3-16 by mouth. ity of 14:17: [address] BUPROPION 2020-0 Yes Take by Unive rs HCL ORAL 3-16 mouth. ity of 14:17: [address] OMEPRAZOLE 2020-0 Yes 40mg Take 40 mg U nivers ORAL 3-16 by mouth. ity of 14:17: [address] BUPROPION 2020-0 Yes Take by Unive rs HCL ORAL 3-16 mouth. ity of 14:17: [address] OMEPRAZOLE 2020-0 Yes 40mg Take 40 mg U nivers ORAL 3-16 by mouth. ity of 14:17: [address] BUPROPION 2020-0 Yes Take by Unive rs HCL ORAL 3-16 mouth. ity of 14:17: [address] OMEPRAZOLE 2020-0 Yes 40mg Take 40 mg U nivers ORAL 3-16 by mouth. ity of 14:17: [address] BUPROPION 2020-0 Yes Take by Unive rs HCL ORAL 3-16 mouth. ity of 14:17: [address] OMEPRAZOLE 2020-0 Yes 40mg Take 40 mg U nivers ORAL 3-16 by mouth. ity of 14:17: [address] BUPROPION 2020-0 Yes Take by Unive rs HCL ORAL 3-16 mouth. ity of 14:17: [address] OMEPRAZOLE 2020-0 Yes 40mg Take 40 mg U nivers ORAL 3-16 by mouth. ity of 14:17: [address] BUPROPION 2020-0 Yes Take by Unive rs HCL ORAL 3-16 mouth. ity of 14:17: [address] OMEPRAZOLE 2020-0 Yes 40mg Take 40 mg U nivers ORAL 3-16 by mouth. ity of 14:17: [address] Branch BUPROPION 2020-0 Yes Take by Unive rs HCL ORAL 3-16 mouth. ity of 14:17: [address] Branch OMEPRAZOLE 2019-0 Yes 40mg Take 40 mg U nivers ORAL 3-16 by mouth. ity of 09:17: [address] BUPROPION 2020-0 Yes Take by Unive rs HCL ORAL 3-16 mouth. ity of 09:17: [address] Branch HYDROcodone 2020-0 Yes [id number] 1{tbl} Take 1 Univers -acetaminop 3-16 tablet by ity of hen 5-325 00:00: mouth [place] mg tablet 00 every 6 Medical (six) Branch hours as needed for Pain (scale 4-6) or Pain (scale 7-10). HYDROcodone 2019-0 Yes [id number] 1{tbl} Take 1 Univers -acetaminop 3-16 tablet by ity of hen 5-325 00:00: mouth [place] mg tablet 00 every 6 Medical (six) Branch hours as needed for Pain (scale 4-6) or Pain (scale 7-10). HYDROcodone 2019-0 Yes [id number] 1{tbl} Take 1 Univers -acetaminop 3-16 tablet by ity of hen 5-325 00:00: mouth [place] mg tablet 00 every 6 Medical (six) Branch hours as needed for Pain (scale 4-6) or Pain (scale 7-10). HYDROcodone 2019- 2020- No [id number] 1{tbl} Take 1 Univers -acetaminop 3-16 03-27 tablet by it y of hen 5-325 00:00: 00:00 mouth [place] mg tablet 00 :00 every 6 Medical (six) Branch hours as needed for Pain (scale 4-6) or Pain (scale 7-10). HYDROcodone 2019-0 2020- No [id number] 1{tbl} Take 1 Univers -acetaminop 3-16 03-27 tablet by it y of hen 5-325 00:00: 00:00 mouth [place] mg tablet 00 :00 every 6 Medical (six) Branch hours as needed for Pain (scale 4-6) or Pain (scale 7-10). HYDROcodone 2019-0 2020- No [id number] 1{tbl} Take 1 Univers -acetaminop 3-16 03-27 tablet by it y of hen 5-325 00:00: 00:00 mouth [place] mg tablet 00 :00 every 6 Medical (six) Branch hours as needed for Pain (scale 4-6) or Pain (scale 7-10). HYDROcodone 2019-0 2020- No [id number] 1{tbl} Take 1 [facility] -acetaminop 01-05 tablet by it y of hen 5-325 00:00: 00:00 mouth [place] mg tablet 00 :00 every 6 Medical (six) Branch hours as needed for Pain (scale 4-6) or Pain (scale 7-10). meperidine 2019-0 2019- No 50mg 50 mg, Univ ers (DEMEROL) 01-02 Intravenou ity of injection 18:45: 18:43 s, ONCE, 1 [place] 50 mg 00 :00 dose, Fri Medical 01/03/20 at Branch 1345, [place], PACU
En ter indication for use: [facility]
produce service team member approving Restricted medication : SONDRA CHAES morpHINE 2020-0 Yes 2mg 2 mg, Slow Uni vers injection 2 -13 IV Push, ity of mg 18:42: Q5MIN PRN, [place] 44 5 doses, Medical Starting Branch 01/03/20 at 1342, Until Discontinu ed, Routine, Pain (scale 4-6), PACU ondansetron 2019-0 Yes 4mg 4 mg, Slow Univers (ZOFRAN 3-13 IV Push, ity of (PF)) 18:42: PRN, [...] 1330, Until Discontinu ed, Routine, PACU HYDROcodone 2019-0 2020- No 1{tbl} 1 tablet, Univers -acetaminop 01-02 Oral, ity of hen (NORCO 18:30: 19:07 ONCE, 1 [place] as 5) 5-325 mg 00 :00 dose, Fri Med ical tablet 1 01/03/20 at [facility] h tablet 1330, Routine, PACU HYDROcodone 2020-0 [...] [place] 54 5 doses, Medical Starting Branch Mon01/03/20 at 1317, Until Discontinu ed, Routine, Pain (scale 4-6), PACU ondansetron 2020-0 Yes 4mg 4 mg, Slow [facility] (ZOFRAN 3-13 IV Push, ity of (PF)) 18:17: PRN, 1 [place] injection 4 54 dose, Medical mg Starting Branch Mon01/03/20 at 1317, Until Discontinu ed, Routine, Nausea and Vomiting (N/V), PACU D5W-LR IV 2020-0 Yes 1000mL at 125 Univ ers infusion 3-13 mL/hr, IV ity of 1,000 mL 18:15: Infusion, [place] 00 CONTINUOUS Medical , Starting Branch Mon01/03/20 at 1315, Until Discontinu ed, Routine ketorolac 2020-0 2020- No 30mg 30 mg, Unive rs (TORADOL) 3-13 01-02 Intramuscu ity of injection 18:15: 18:38 [place], ONCE, [place] 30 mg 00 :00 1 dose, Medical [facility] Branch 01/03/20 at 1330, Routine
produce service team member approving Restricted medication : SONDRA CHAVIRA HYDROcodone 2020-0 Yes 2{tbl} 2 tablet, Univers -acetaminop - Oral, ity of hen (NORCO 18:10: Q6HPRN, [place] 5) 5-325 mg 00 Starting Medi gabriel tablet 2 [facility] tablet 01/03/20 at 1310, Until Discontinu ed, Routine, Pain (scale 7-10) OMEPRAZOLE 2020-0 Yes 40mg Take 40 mg U nivers ORAL 3- by mouth. ity of 17:55: [address] ACETAMINOPH 2020-0 Yes Take by Uni vers EN EXTRA - mouth. ity of STRENGTH 17:55: [address] BUPROPION 2019-0 Yes Take by [place] [facility] rs HCL ORAL - mouth. ity of 17:55: [address] bupivacaine 2020-0 Yes PRN, Univer s -epinephrin 01-02 Starting ity of e-pf 17:05: Mon [place] (SENSORCAIN 00 01/03/20 at Ok dical E 1205, Branch W/EPINEPHRI Until NE) 0.5 Discontinu %-1:200,000 ed, injection Routine, Intra-op sodium 2020-0 Yes PRN, Univers chloride 01-02 Starting ity of 0.9 % 17:05: Mon [place] irrigation 00 01/03/20 at Med ical solution 1205, Branch Until Discontinu ed, Intra-op metroNIDAZO 2020-0 Yes 2000mg 2,000 mg, Univers LE (FLAGYL 3 IV ity of I.V.) 16:02: [place] [facility] Medical 2,000 mg [facility] Branch ONCE, 1 dose, Starting Mon01/03/20 at 1102, Until Discontinu ed, 400 mL, Intra-op<b r>Reason for Anti-Infec tive: Surgical Prophylaxi s
Surgi gabriel Prophylaxi s: [employer]
Duration of therapy: within 24 hours of surgery lactated 2020-0 2020- No 1000mL at 20 Unive rs ringers IV 3-13 03-13 mL/hr, ity of infusion 14:00: 14:58 1,000 mL, Jose as 1,000 mL 00 :00 IV Medical Infusion, Branch ONCE, 1 dose, 01/03/20 at 0900, Routine, DSU Pre-op HYDROcodone 2020-0 Yes [id number] 1{tbl} Take 1 Univers -acetaminop 3-13 tablet by ity of hen 5-325 00:00: mouth [place] mg tablet 00 every 6 Medical (six) Branch hours as needed for Pain (scale 4-6) or Pain (scale 7-10). HYDROcodone 2020-0 Yes [id number] 1{tbl} Take 1 Univers -acetaminop 3-13 tablet by ity of hen 5-325 00:00: mouth [place] mg tablet 00 every 6 Medical (six) Branch hours as needed for Pain (scale 4-6) or Pain (scale 7-10). HYDROcodone 2020-0 Yes [id number] 1{tbl} Take 1 Univers -acetaminop 3-13 tablet by ity of hen 5-325 00:00: mouth [place] mg tablet 00 every 6 Medical (six) Branch hours as needed for Pain (scale 4-6) or Pain (scale 7-10). HYDROcodone 2020-0 Yes [id number] 1{tbl} Take 1 Univers -acetaminop 3-13 tablet by ity of hen 5-325 00:00: mouth [place] mg tablet 00 every 6 Medical (six) Branch hours as needed for Pain (scale 4-6) or Pain (scale 7-10). HYDROcodone 2019-0 2020- No [id number] 1{tbl} Take 1 [facility] -acetaminop 3-13 03-27 tablet by it y of hen 5-325 00:00: 00:00 mouth [place] mg tablet 00 :00 every 6 Medical (six) Branch hours as needed for Pain (scale 4-6) or Pain (scale 7-10). HYDROcodone 2019-0 2020- No [id number] 1{tbl} Take 1 Univers -acetaminop 3-13 03-27 tablet by it y of hen 5-325 00:00: 00:00 mouth [place] mg tablet 00 :00 every 6 Medical (six) Branch hours as needed for Pain (scale 4-6) or Pain (scale 7-10). HYDROcodone 2020-0 2020- No [id number] 1{tbl} Take 1 Univers -acetaminop 3-13 03-27 tablet by it y of hen 5-325 00:00: 00:00 mouth [place] mg tablet 00 :00 every 6 Medical (six) Branch hours as needed for Pain (scale 4-6) or Pain (scale 7-10). HYDROcodone 2020-0 2020- No [id number] 1{tbl} Take 1 Univers -acetaminop 3-13 -27 tablet by it y of hen 5-325 00:00: 00:00 mouth [place] mg tablet 00 :00 every 6 Medical (six) Branch hours as needed for Pain (scale 4-6) or Pain (scale 7-10). ibuprofen 2020-0 Yes [id number] 600mg Take 1 Univers 600 mg 2-21 tablet by ity of tablet 00:00: mouth [place] 00 every 6 Medical (six) Branch hours as needed (pain). Take one tablet every 6 hours for 5 days then every 6 hours as needed. ibuprofen 2020-0 Yes [id number] 600mg Take 1 [facility] 600 mg 2-21 tablet by ity of tablet 00:00: mouth [place] 00 every 6 Medical (six) Branch hours as needed (pain). Take one tablet every 6 hours for 5 days then every 6 hours as needed. ibuprofen 2020-0 Yes [id number] 600mg Take 1 [facility] 600 mg 2-21 tablet by ity of tablet 00:00: mouth [place] 00 every 6 Medical (six) Branch hours as needed (pain). Take one tablet every 6 hours for 5 days then every 6 hours as needed. ibuprofen 2020-0 Yes [id number] 600mg Take 1 [facility] 600 mg 2-21 tablet by ity of tablet 00:00: mouth [place] 00 every 6 Medical (six) Branch hours as needed (pain). Take one tablet every 6 hours for 5 days then every 6 hours as needed. ibuprofen 2020-0 Yes [id number] 600mg Take 1 [facility] 600 [facility] 2-21 tablet by [facility] tablet 00:00: mouth [place] 00 every 6 Medical (six) Branch hours as needed (pain). Take one tablet every 6 hours for 5 days then every 6 hours as needed. ibuprofen 2020-0 Yes [id number] 600mg Take 1 [facility] 600 mg 2-21 tablet by [facility] of tablet 00:00: mouth [place] 00 every 6 Medical (six) Branch hours as needed (pain). Take one tablet every 6 hours for 5 days then every 6 hours as needed. ibuprofen 2020-0 Yes [id number] 600mg Take 1 [facility] 600 mg 2-21 tablet by [facility] of tablet 00:00: mouth [place] 00 every 6 Medical (six) Branch hours as needed (pain). Take one tablet every 6 hours for 5 days then every 6 hours as needed. ibuprofen 2020-0 Yes [id number] 600mg Take 1 [facility] 600 mg 2-21 tablet by [facility] of tablet 00:00: mouth [place] 00 every 6 Medical (six) Branch hours as needed (pain). Take one tablet every 6 hours for 5 days then every 6 hours as needed. ibuprofen 2020-0 Yes [id number] 600mg Take 1 [facility] 600 mg 2-21 tablet by [facility] of tablet 00:00: mouth [place] 00 every 6 Medical (six) Branch hours as needed (pain). Take one tablet every 6 hours for 5 days then every 6 hours as needed. ibuprofen 2020-0 Yes [id number] 600mg Take 1 [facility] 600 mg 2-21 tablet by [facility] of tablet 00:00: mouth [place] 00 every 6 Medical (six) Branch hours as needed (pain). Take one tablet every 6 hours for 5 days then every 6 hours as needed. ibuprofen 2020-0 Yes [id number] 600mg Take 1 [facility] 600 mg 2-21 tablet by [facility] of tablet 00:00: mouth [place] 00 every 6 Medical (six) Branch hours as needed (pain). Take one tablet every 6 hours for 5 days then every 6 hours as needed. ibuprofen 2020-0 Yes [id number] 600mg Take 1 [facility] 600 mg 2-21 tablet by [facility] of tablet 00:00: mouth [place] 00 every 6 Medical (six) Branch hours as needed (pain). Take one tablet every 6 hours for 5 days then every 6 hours as needed. ibuprofen 2020-0 Yes [id number] 600mg Take 1 [facility] 600 mg 2-21 tablet by [facility] of tablet 00:00: mouth [place] 00 every 6 Medical (six) Branch hours as needed (pain). Take one tablet every 6 hours for 5 days then every 6 hours as needed. ibuprofen 2020-0 Yes [id number] 600mg Take 1 [facility] 600 mg 2-21 tablet by [facility] of tablet 00:00: mouth [place] 00 every 6 Medical (six) Branch hours as needed (pain). Take one tablet every 6 hours for 5 days then every 6 hours as needed. ibuprofen 2020-0 Yes [id number] 600mg Take 1 [facility] 600 mg 2-21 tablet by [facility] of tablet 00:00: mouth [place] 00 every 6 Medical (six) Branch hours as needed (pain). Take one tablet every 6 hours for 5 days then every 6 hours as needed. ibuprofen 2020-0 Yes [id number] 600mg Take 1 [facility] 600 mg 2-21 tablet by [facility] of tablet 00:00: mouth [place] 00 every 6 Medical (six) Branch hours as needed (pain). Take one tablet every 6 hours for 5 days then every 6 hours as needed. ibuprofen 2020-0 Yes [id number] 600mg Take 1 [facility] 600 mg 2-21 tablet by [facility] of tablet 00:00: mouth [place] 00 every 6 Medical (six) Branch hours as needed (pain). Take one tablet every 6 hours for 5 days then every 6 hours as needed. ibuprofen 2020-0 Yes [id number] 600mg Take 1 [facility] 600 mg 2-21 tablet by [facility] of tablet 00:00: mouth [place] 00 every 6 Medical (six) Branch hours as needed (pain). Take one tablet every 6 hours for 5 days then every 6 hours as needed. ibuprofen 2020-0 Yes [id number] 600mg Take 1 [facility] 600 mg 2-21 tablet by [facility] of tablet 00:00: mouth [place] 00 every 6 Medical (six) Branch hours as needed (pain). Take one tablet every 6 hours for 5 days then every 6 hours as needed. ibuprofen 2020-0 Yes [id number] 600mg Take 1 [facility] 600 mg 2-21 tablet by [facility] of tablet 00:00: mouth [place] 00 every 6 Medical (six) Branch hours as needed (pain). Take one tablet every 6 hours for 5 days then every 6 hours as needed. ibuprofen 2020-0 Yes [id number] 600mg Take 1 [facility] 600 mg 2-21 tablet by [facility] of tablet 00:00: mouth [place] 00 every 6 Medical (six) Branch hours as needed (pain). Take one tablet every 6 hours for 5 days then every 6 hours as needed. ibuprofen 2020-0 Yes [id number] 600mg Take 1 [facility] 600 mg 2-21 tablet by [facility] of tablet 00:00: mouth [place] 00 every 6 Medical (six) Branch hours as needed (pain). Take one tablet every 6 hours for 5 days then every 6 hours as needed. ibuprofen 2020-0 Yes [id number] 600mg Take 1 [facility] 600 mg 2-21 tablet by [facility] of tablet 00:00: mouth [place] 00 every 6 Medical (six) Branch hours as needed (pain). Take one tablet every 6 hours for 5 days then every 6 hours as needed. ibuprofen 2020-0 Yes [id number] 600mg Take 1 [facility] 600 mg 2-21 [...] Piggyback 2 g traMADol 50 2020-0 Yes [id number] 50mg Take 1 [facility] mg tablet 2-09 tablet by ity o f 00:00: mouth [place] 00 every 6 Medical (six) Branch hours as needed (pain). traMADol 50 2020-0 Yes [id number] 50mg Take 1 [facility] mg tablet 2-09 tablet by ity o f 00:00: mouth [place] 00 every 6 Medical (six) Branch hours as needed (pain). traMADol 50 2020-0 Yes [id number] 50mg Take 1 [facility] mg tablet 2-09 tablet by ity o f 00:00: mouth [place] 00 every 6 Medical (six) Branch hours as needed (pain). traMADol 50 2020-0 Yes [id number] 50mg Take 1 [facility] mg tablet 2-09 tablet by ity o f 00:00: mouth [place] 00 every 6 Medical (six) Branch hours as needed (pain). traMADol 50 2020-0 Yes [id number] 50mg Take 1 [facility] mg tablet 2-09 tablet by ity o f 00:00: mouth [place] 00 every 6 Medical (six) Branch hours as needed (pain). traMADol 50 2020-0 Yes [id number] 50mg Take 1 [facility] mg tablet 2-09 tablet by ity o f 00:00: mouth [place] 00 every 6 Medical (six) Branch hours as needed (pain). traMADol 50 2020-0 Yes [id number] 50mg Take 1 [facility] mg tablet 2-09 tablet by ity o f 00:00: mouth [place] 00 every 6 Medical (six) Branch hours as needed (pain). traMADol 50 2020-0 Yes [id number] 50mg Take 1 [facility] mg tablet 2-09 tablet by ity o f 00:00: mouth [place] 00 every 6 Medical (six) Branch hours as needed (pain). traMADol 50 2020-0 Yes [id number] 50mg Take 1 [facility] mg tablet 2-09 tablet by ity o f 00:00: mouth [place] 00 every 6 Medical (six) Branch hours as needed (pain). traMADol 50 2020-0 Yes [id number] 50mg Take 1 [facility] mg tablet 2-09 tablet by ity o f 00:00: mouth [place] 00 every 6 Medical (six) Branch hours as needed (pain). traMADol 50 2020-0 Yes [id number] 50mg Take 1 [facility] mg tablet 2-09 tablet by ity o f 00:00: mouth [place] 00 every 6 Medical (six) Branch hours as needed (pain). traMADol 50 2020-0 Yes [id number] 50mg Take 1 [facility] mg tablet 2-09 tablet by ity o f 00:00: mouth [place] 00 every 6 Medical (six) Branch hours as needed (pain). traMADol 50 2020-0 Yes [id number] 50mg Take 1 [facility] mg tablet 2-09 tablet by ity o f 00:00: mouth [place] 00 every 6 Medical (six) Branch hours as needed (pain). traMADol 50 2020-0 Yes [id number] 50mg Take 1 [facility] mg tablet 2-09 tablet by ity o f 00:00: mouth [place] 00 every 6 Medical (six) Branch hours as needed (pain). traMADol 50 2020-0 Yes [id number] 50mg Take 1 [facility] mg tablet 2-09 tablet by ity o f 00:00: mouth [place] 00 every 6 Medical (six) Branch hours as needed (pain). traMADol 50 2020-0 Yes [id number] 50mg Take 1 [facility] mg tablet 2-09 tablet by ity o f 00:00: mouth [place] 00 every 6 Medical (six) Branch hours as needed (pain). traMADol 50 2020-0 Yes [id number] 50mg Take 1 [facility] mg tablet 2-09 tablet by ity o f 00:00: mouth [place] 00 every 6 Medical (six) Branch hours as needed (pain). traMADol 50 2020-0 Yes [id number] 50mg Take 1 [facility] mg tablet 2-09 tablet by ity o f 00:00: mouth [place] 00 every 6 Medical (six) Branch hours as needed (pain). traMADol 50 2020-0 Yes [id number] 50mg Take 1 [facility] mg tablet 2-09 tablet by ity o f 00:00: mouth [place] 00 every 6 Medical (six) Branch hours as needed (pain). traMADol 50 2020-0 Yes [id number] 50mg Take 1 [facility] mg tablet 2-09 tablet by ity o f 00:00: mouth [place] 00 every 6 Medical (six) Branch hours as needed (pain). traMADol 50 2020-0 Yes [id number] 50mg Take 1 [facility] mg tablet 2-09 tablet by ity o f 00:00: mouth [place] 00 every 6 Medical (six) Branch hours as needed (pain). traMADol 50 2020-0 Yes [id number] 50mg Take 1 [facility] mg tablet 2-09 tablet by ity o f 00:00: mouth [place] 00 every 6 Medical (six) Branch hours as needed (pain). traMADol 50 2020-0 Yes [id number] 50mg Take 1 [facility] mg tablet 2-09 tablet by ity o f 00:00: mouth [place] 00 every 6 Medical (six) Branch hours as needed (pain). traMADol 50 2020-0 Yes [id number] 50mg Take 1 [facility] mg tablet 2-09 tablet by ity o f 00:00: mouth [place] 00 every 6 Medical (six) Branch hours as needed (pain). traMADol 50 2020-0 Yes [id number] 50mg Take 1 [facility] mg tablet 2-09 tablet by ity o f 00:00: mouth [place] 00 every 6 Medical (six) Branch hours as needed (pain). traMADol 50 2020-0 Yes [id number] 50mg Take 1 [facility] mg tablet 2-09 tablet by ity o f 00:00: mouth [place] 00 every 6 Medical (six) Branch hours as needed (pain). traMADol 50 2020-0 Yes [id number] 50mg Take 1 [facility] mg tablet 2-09 tablet by ity o f 00:00: mouth [place] 00 every 6 Medical (six) Branch hours as needed (pain). traMADol 50 2020-0 Yes [id number] 50mg Take 1 [facility] mg tablet 2-09 tablet by ity o f 00:00: mouth [place] 00 every 6 Medical (six) Branch hours as needed (pain). traMADol 50 2020-0 Yes [id number] 50mg Take 1 [facility] mg tablet 2-09 tablet by ity o f 00:00: mouth [place] 00 every 6 Medical (six) Branch hours as needed (pain). traMADol 50 2020-0 Yes [id number] 50mg Take 1 [facility] mg tablet 2-09 tablet by ity o f 00:00: mouth [place] 00 every 6 Medical (six) Branch hours as needed (pain). traMADol 50 2020-0 Yes [id number] 50mg Take 1 [facility] mg tablet 2-09 tablet by ity o f 00:00: mouth [place] 00 every 6 Medical (six) Branch hours as needed (pain). traMADol 50 2020-0 Yes [id number] 50mg Take 1 [facility] mg tablet 2-09 tablet by ity o f 00:00: mouth [place] 00 every 6 Medical (six) Branch hours as needed (pain). traMADol 50 2020-0 Yes [id number] 50mg Take 1 [facility] mg tablet 2-09 tablet by ity o f 00:00: mouth [place] 00 every 6 Medical (six) Branch hours as needed (pain). BUPROPION 2020-0 Yes Take by [facility] HCL ORAL 2-07 mouth. ity of 23:53: [address] Branch BUPROPION 2020-0 Yes Take by [facility] HCL ORAL 2-07 mouth. ity of 23:53: [address] Branch BUPROPION 2020-0 Yes Take by [facility] HCL ORAL 2-07 mouth. ity of 23:53: [place] [address] Medical Branch BUPROPION 2020-0 Yes Take by [facility] rs HCL ORAL 2-07 mouth. ity of 23:53: [place] [address] Medical Branch BUPROPION 2020-0 Yes Take by [facility] HCL ORAL 2-07 mouth. ity of 23:53: [place] [address] Medical Branch BUPROPION 2020-0 Yes Take by [facility] HCL ORAL 2-07 mouth. ity of 23:53: [place] [address] Medical Branch BUPROPION 2020-0 Yes Take by [facility] rs HCL ORAL 2-07 mouth. ity of 23:53: [place] [address] Medical Branch BUPROPION 2020-0 Yes Take by [facility] HCL ORAL 2-07 mouth. ity of 23:53: [place] [address] Medical Branch BUPROPION 2020-0 Yes Take by [facility] HCL ORAL 2-07 mouth. ity of 23:53: [place] [address] Medical Branch BUPROPION 2020-0 Yes Take by [facility] HCL ORAL 2-07 mouth. ity of 23:53: [place] [address] Medical Branch BUPROPION 2020-0 Yes Take by [facility] rs HCL ORAL 2-07 mouth. ity of 23:53: [place] [address] Medical Branch ACETAMINOPH 2020-0 Yes Take by [facility] vers EN EXTRA 2-07 mouth. ity of STRENGTH 23:03: [place] ORAL 45 Medical Branch ACETAMINOPH 2020-0 Yes Take by [facility] vers EN EXTRA 2-07 mouth. ity of STRENGTH 23:03: [place] ORAL 45 Medical Branch ACETAMINOPH 2020-0 Yes Take by [facility] vers EN EXTRA 2-07 mouth. ity of STRENGTH 23:03: [facility] [place] 45 Medical Branch ACETAMINOPH 2020-0 Yes Take by Uni vers EN EXTRA 2-07 mouth. ity of STRENGTH 23:03: [place] ORAL 45 Medical Branch ACETAMINOPH 2020-0 Yes Take by [facility] vers EN EXTRA 2-07 mouth. ity of STRENGTH 23:03: [place] ORAL 45 Medical Branch ACETAMINOPH 2020-0 Yes Take by [facility] vers EN EXTRA 2-07 mouth. ity of STRENGTH 23:03: [place] ORAL 45 Medical Branch ACETAMINOPH 2020-0 Yes Take by [facility] vers EN EXTRA 2-07 mouth. ity of STRENGTH 23:03: [place] ORAL 45 Medical Branch ACETAMINOPH 2020-0 Yes Take by [facility] vers EN EXTRA 2-07 mouth. ity of STRENGTH 23:03: [place] ORAL 45 Medical Branch ACETAMINOPH 2020-0 Yes Take by [facility] vers EN EXTRA 2-07 mouth. ity of STRENGTH 23:03: [place] ORAL 45 Medical Branch ACETAMINOPH 2020-0 Yes Take by [facility] vers EN EXTRA 2-07 mouth. ity of STRENGTH 23:03: [place] ORAL 45 Medical Branch ACETAMINOPH 2020-0 Yes Take by [facility] vers EN EXTRA 2-07 mouth. ity of STRENGTH 23:03: [place] ORAL 45 Medical Branch gabapentin 2020-0 Yes [id number] 300mg Take 1 [facility] 300 mg 2-07 capsule by ity of capsule 00:00: mouth 3 [place] 00 (three) Medical times Branch daily. acetaminoph 2020-0 Yes [id number] 1000mg Take 2 [facility] en (TYLENOL 2-07 tablets by it y of EXTRA 00:00: mouth [place] STRENGTH) 00 every 6 Medical 500 mg (six) Branch tablet hours. celecoxib 2020-0 Yes [id number] 200mg Take 1 [facility] (CELEBREX) 2-07 capsule by ity of 200 mg 00:00: mouth 2 [place] capsule 00 (two) Medical times Branch daily with meals. gabapentin 2020-0 Yes [id number] 300mg Take 1 [facility] 300 mg 2-07 capsule by ity of capsule 00:00: mouth 3 [place] 00 (three) Medical times Branch daily. acetaminoph 2020-0 Yes [id number] 1000mg Take 2 [facility] en (TYLENOL 2-07 tablets by it y of EXTRA 00:00: mouth [place] STRENGTH) 00 every 6 Medical 500 mg (six) Branch tablet hours. celecoxib 2020-0 Yes [id number] 200mg Take 1 [facility] (CELEBREX) 2-07 capsule by ity of 200 mg 00:00: mouth 2 [place] capsule 00 (two) Medical times Branch daily with meals. gabapentin 2020-0 Yes [id number] 300mg Take 1 [facility] 300 mg 2-07 capsule by ity of capsule 00:00: mouth 3 [place] 00 (three) Medical times Branch daily. acetaminoph 2020-0 Yes [id number] 1000mg Take 2 [facility] en (TYLENOL 2-07 tablets by it y of EXTRA 00:00: mouth [place] STRENGTH) 00 every 6 Medical 500 mg (six) Branch tablet hours. celecoxib 2020-0 Yes [id number] 200mg Take 1 [facility] (CELEBREX) 2-07 capsule by ity of 200 mg 00:00: mouth 2 [place] capsule 00 (two) Medical times Branch daily with meals. gabapentin 2020-0 Yes [id number] 300mg Take 1 [facility] 300 mg 2-07 capsule by ity of capsule 00:00: mouth 3 [place] 00 (three) Medical times Branch daily. acetaminoph 2020-0 Yes [id number] 1000mg Take 2 [facility] en (TYLENOL 2-07 tablets by it y of EXTRA 00:00: mouth [place] STRENGTH) 00 every 6 Medical 500 mg (six) Branch tablet hours. celecoxib 2020-0 Yes [id number] 200mg Take 1 [facility] (CELEBREX) 2-07 capsule by ity of 200 mg 00:00: mouth 2 [place] capsule 00 (two) Medical times Branch daily with meals. gabapentin 2020-0 Yes [id number] 300mg Take 1 [facility] 300 mg 2-07 capsule by ity of capsule 00:00: mouth 3 [place] 00 (three) Medical times Branch daily. acetaminoph 2020-0 Yes [id number] 1000mg Take 2 [facility] en (TYLENOL 2-07 tablets by it y of EXTRA 00:00: mouth [place] STRENGTH) 00 every 6 Medical 500 mg (six) Branch tablet hours. celecoxib 2020-0 Yes [id number] 200mg Take 1 [facility] (CELEBREX) 2-07 capsule by ity of 200 mg 00:00: mouth 2 [place] capsule 00 (two) Medical times Branch daily with meals. gabapentin 2020-0 Yes [id number] 300mg Take 1 [facility] 300 mg 2-07 capsule by ity of capsule 00:00: mouth 3 [place] 00 (three) Medical times Branch daily. acetaminoph 2020-0 Yes [id number] 1000mg Take 2 [facility] en (TYLENOL 2-07 tablets by it y of EXTRA 00:00: mouth [place] STRENGTH) 00 every 6 Medical 500 mg (six) Branch tablet hours. celecoxib 2020-0 Yes [id number] 200mg Take 1 [facility] (CELEBREX) 2-07 capsule by ity of 200 mg 00:00: mouth 2 [place] capsule 00 (two) Medical times Branch daily with meals. gabapentin 2020-0 Yes [id number] 300mg Take 1 [facility] 300 mg 2-07 capsule by ity of capsule 00:00: mouth 3 [place] 00 (three) Medical times Branch daily. acetaminoph 2020-0 Yes [id number] 1000mg Take 2 [facility] en (TYLENOL 2-07 tablets by it y of EXTRA 00:00: mouth [place] STRENGTH) 00 every 6 Medical 500 mg (six) Branch tablet hours. celecoxib 2020-0 Yes [id number] 200mg Take 1 [facility] (CELEBREX) 2-07 capsule by ity of 200 mg 00:00: mouth 2 [place] capsule 00 (two) Medical times Branch daily with meals. gabapentin 2020-0 Yes [id number] 300mg Take 1 [facility] 300 mg 2-07 capsule by ity of capsule 00:00: mouth 3 [place] 00 (three) Medical times Branch daily. acetaminoph 2020-0 Yes [id number] 1000mg Take 2 [facility] en (TYLENOL 2-07 tablets by it y of EXTRA 00:00: mouth [place] STRENGTH) 00 every 6 Medical 500 mg (six) Branch tablet hours. celecoxib 2020-0 Yes [id number] 200mg Take 1 [facility] (CELEBREX) 2-07 capsule by ity of 200 mg 00:00: mouth 2 [place] capsule 00 (two) Medical times Branch daily with meals. gabapentin 2020-0 Yes [id number] 300mg Take 1 [facility] 300 mg 2-07 capsule by ity of capsule 00:00: mouth 3 [place] 00 (three) Medical times Branch daily. acetaminoph 2020-0 Yes [id number] 1000mg Take 2 [facility] en (TYLENOL 2-07 tablets by it y of EXTRA 00:00: mouth [place] STRENGTH) 00 every 6 Medical 500 mg (six) Branch tablet hours. celecoxib 2020-0 Yes [id number] 200mg Take 1 [facility] (CELEBREX) 2-07 capsule by ity of 200 mg 00:00: mouth 2 [place] capsule 00 (two) Medical times Branch daily with meals. gabapentin 2020-0 Yes [id number] 300mg Take 1 [facility] 300 mg 2-07 capsule by ity of capsule 00:00: mouth 3 [place] 00 (three) Medical times Branch daily. acetaminoph 2020-0 Yes [id number] 1000mg Take 2 [facility] en (TYLENOL 2-07 tablets by it y of EXTRA 00:00: mouth [place] STRENGTH) 00 every 6 Medical 500 mg (six) Branch tablet hours. celecoxib 2020-0 Yes [id number] 200mg Take 1 [facility] (CELEBREX) 2-07 capsule by ity of 200 mg 00:00: mouth 2 [place] capsule 00 (two) Medical times Branch daily with meals. gabapentin 2020-0 Yes [id number] 300mg Take 1 [facility] 300 mg 2-07 capsule by ity of capsule 00:00: mouth 3 [place] 00 (three) Medical times Branch daily. acetaminoph 2020-0 Yes [id number] 1000mg Take 2 [facility] en (TYLENOL 2-07 tablets by it y of EXTRA 00:00: mouth [place] STRENGTH) 00 every 6 Medical 500 mg (six) Branch tablet hours. celecoxib 2020-0 Yes [id number] 200mg Take 1 [facility] (CELEBREX) 2-07 capsule by ity of 200 mg 00:00: mouth 2 [place] capsule 00 (two) Medical times Branch daily with meals. gabapentin 2020-0 Yes [id number] 300mg Take 1 [facility] 300 mg 2-07 capsule by ity of capsule 00:00: mouth 3 [place] 00 (three) Medical times Branch daily. acetaminoph 2020-0 Yes [id number] 1000mg Take 2 [facility] en (TYLENOL 2-07 tablets by it y of EXTRA 00:00: mouth [place] STRENGTH) 00 every 6 Medical 500 mg (six) Branch tablet hours. celecoxib 2020-0 Yes [id number] 200mg Take 1 [facility] (CELEBREX) 2-07 capsule by ity of 200 mg 00:00: mouth 2 [place] capsule 00 (two) Medical times Branch daily with meals. gabapentin 2020-0 Yes [id number] 300mg Take 1 [facility] 300 mg 2-07 capsule by ity of capsule 00:00: mouth 3 [place] 00 (three) Medical times Branch daily. acetaminoph 2020-0 Yes [id number] 1000mg Take 2 [facility] en (TYLENOL 2-07 tablets by it y of EXTRA 00:00: mouth [place] STRENGTH) 00 every 6 Medical 500 mg (six) Branch tablet hours. celecoxib 2020-0 Yes [id number] 200mg Take 1 [facility] (CELEBREX) 2-07 capsule by ity of 200 mg 00:00: mouth 2 [place] capsule 00 (two) Medical times Branch daily with meals. gabapentin 2020-0 Yes [id number] 300mg Take 1 [facility] 300 mg 2-07 capsule by ity of capsule 00:00: mouth 3 [place] 00 (three) Medical times Branch daily. acetaminoph 2020-0 Yes [id number] 1000mg Take 2 [facility] en (TYLENOL 2-07 tablets by it y of EXTRA 00:00: mouth [place] STRENGTH) 00 every 6 Medical 500 mg (six) Branch tablet hours. celecoxib 2020-0 Yes [id number] 200mg Take 1 [facility] (CELEBREX) 2-07 capsule by ity of 200 mg 00:00: mouth 2 [place] capsule 00 (two) Medical times Branch daily with meals. gabapentin 2020-0 Yes [id number] 300mg Take 1 [facility] 300 mg 2-07 capsule by ity of capsule 00:00: mouth 3 [place] 00 (three) Medical times Branch daily. acetaminoph 2020-0 Yes [id number] 1000mg Take 2 [facility] en (TYLENOL 2-07 tablets by it y of EXTRA 00:00: mouth [place] STRENGTH) 00 every 6 Medical 500 mg (six) Branch tablet hours. celecoxib 2020-0 Yes [id number] 200mg Take 1 [facility] (CELEBREX) 2-07 capsule by ity of 200 mg 00:00: mouth 2 [place] capsule 00 (two) Medical times Branch daily with meals. gabapentin 2020-0 Yes [id number] 300mg Take 1 [facility] 300 mg 2-07 capsule by ity of capsule 00:00: mouth 3 [place] 00 (three) Medical times Branch daily. acetaminoph 2020-0 Yes [id number] 1000mg Take 2 [facility] en (TYLENOL 2-07 tablets by it y of EXTRA 00:00: mouth [place] STRENGTH) 00 every 6 Medical 500 mg (six) Branch tablet hours. celecoxib 2020-0 Yes [id number] 200mg Take 1 [facility] (CELEBREX) 2-07 capsule by ity of 200 mg 00:00: mouth 2 [place] capsule 00 (two) Medical times Branch daily with meals. gabapentin 2020-0 2020- No [id number] 300mg Take 1 [facility] 300 mg 2-07 03-27 capsule by ity of capsule 00:00: 00:00 mouth 3 [place] 00 :00 (three) Medical times Branch daily. acetaminoph 2020-0 2020- No [id number] 1000mg Take 2 [facility] en (TYLENOL 2-07 03-27 tablets by i ty of EXTRA 00:00: 00:00 mouth [place] STRENGTH) 00 :00 every 6 Medical 500 mg (six) Branch tablet hours. celecoxib 2020-0 2020- No [id number] 200mg Take 1 [facility] (CELEBREX) 2-07 03-27 capsule by it y of 200 mg 00:00: 00:00 mouth 2 [place] capsule 00 :00 (two) Medical times Branch daily with meals. gabapentin 2020-0 2020- No [id number] 300mg Take 1 [facility] 300 mg 2-07 03-27 capsule by ity of capsule 00:00: 00:00 mouth 3 [place] 00 :00 (three) Medical times Branch daily. acetaminoph 2020-0 2020- No [id number] 1000mg Take 2 [facility] en (TYLENOL 11-29 tablets by i ty of EXTRA 00:00: 00:00 mouth [place] STRENGTH) 00 :00 every 6 Medical 500 mg (six) Branch tablet hours. celecoxib 2019- 2020- No [id number] 200mg Take 1 [facility] (CELEBREX) 11-29 capsule by it y of 200 mg 00:00: 00:00 mouth 2 [place] capsule 00 :00 (two) Medical times Branch daily with meals. gabapentin 2019- 2020- No [id number] 300mg Take 1 [facility] 300 mg 11-29 capsule by ity of capsule 00:00: 00:00 mouth 3 [place] 00 :00 (three) Medical times Branch daily. acetaminoph 2019- 2020- No [id number] 1000mg Take 2 [facility] en (TYLENOL 11-29 tablets by i ty of EXTRA 00:00: 00:00 mouth [place] STRENGTH) 00 :00 every 6 Medical 500 mg (six) Branch tablet hours. celecoxib 2019-0 2020- No [id number] 200mg Take 1 [facility] (CELEBREX) 11-29 capsule by it y of 200 mg 00:00: 00:00 mouth 2 [place] capsule 00 :00 (two) Medical times Branch daily with meals. gabapentin 2019- 2020- No [id number] 300mg Take 1 [facility] 300 mg 11-29 capsule by ity of capsule 00:00: 00:00 mouth 3 [place] 00 :00 (three) Medical times Branch daily. acetaminoph 2020-0 2020- No [id number] 1000mg Take 2 [facility] en (TYLENOL 11-29 tablets by i ty of EXTRA 00:00: 00:00 mouth [place] STRENGTH) 00 :00 every 6 Medical 500 mg (six) Branch tablet hours. celecoxib 2020-0 2020- No [id number] 200mg Take 1 [facility] (CELEBREX) 11-29 capsule by it y of 200 mg 00:00: 00:00 mouth 2 [place] capsule 00 :00 (two) Medical times Branch daily with meals. traMADol 50 2020-0 Yes [id number] 50mg Take 1 [facility] mg tablet 1-28 tablet by ity o f 00:00: mouth [place] 00 every 8 Medical (eight) Branch hours as needed (pain). traMADol 50 2020-0 Yes [id number] 50mg Take 1 [facility] mg tablet 1-28 tablet by ity o f 00:00: mouth [place] 00 every 8 Medical (eight) Branch hours as needed (pain). traMADol 50 2020-0 Yes [id number] 50mg Take 1 [facility] mg tablet 1-28 tablet by ity o f 00:00: mouth [place] 00 every 8 Medical (eight) Branch hours as needed (pain). traMADol 50 2019-0 2020- No [id number] 50mg Take 1 [facility] mg tablet -20 12- tablet by ity of 00:00: 00:00 mouth [place] 00 :00 every 8 Medical (eight) Branch hours as needed (pain). traMADol 50 2019-0 2020- No [id number] 50mg Take 1 [facility] mg tablet -20 12- tablet by ity of 00:00: 00:00 mouth [place] 00 :00 every 8 Medical (eight) Branch hours as needed (pain). traMADol 50 2019-0 2020- No [id number] 50mg Take 1 [facility] mg tablet -20 12- tablet by ity of 00:00: 00:00 mouth [place] 00 :00 every 8 Medical (eight) Branch hours as needed (pain). cefTRIAXone 2019- No 250mg 250 mg, U nivers (ROCEPHIN) [...] 250 mg 00 :00 Medical Branch cefTRIAXone 2019- 2020- No 250mg 250 mg, U nivers (ROCEPHIN) 11-16 Intramuscu it y of injection 01:00: 00:05 [place], [place]CE, [place] 250 mg 00 :00 1 dose, Medical Fri Branch 11/15/19 at 1900, [place]
Re ason for Anti-Infec tive: Empiric Therapy for Suspected Infection< br>Empiric Therapy Site: Pelvic
Duration of therapy: 72 hours cefTRIAXone 2020-0 2020- No 250mg Univ ers (ROCEPHIN) 11-16 ity of injection 01:00: 00:05 [place] 250 mg 00 :00 Medical Branch medroxyPROG 2020-0 2020- No 150mg 150 mg, U nivers ESTERone 11-16 Intramuscu ity of (DEPO-PROVE 00:30: 23:00 lar, ONCE, [place] RA) 00 :00 1 dose, Medical injection Fri Branch 150 mg 11/15/19 at 1830, Routine ketorolac 2019-0 2020- No 60mg 60 mg, Unive rs (TORADOL) 11-16 Intramuscu ity of injection 00:30: 23:15 lar, ONCE, [place] 60 mg 00 :00 1 dose, Medical Fri Branch 11/15/19 at 1830, Routine
produce service team member approving Restricted medication : SONDRA CHAVIRA ketorolac 2019-0 2020- No 60mg Univers (TORADOL) 11-16 ity of injection 00:30: 23:15 [place] 60 mg 00 :00 Medical Branch medroxyPROG 2020-0 2020- No 150mg Univ ers ESTERone 11-16 ity of (DEPO-PROVE 00:30: 23:00 [place] RA) 00 :00 Medical injection Branch 150 mg medroxyPROG 2020-0 2020- No 150mg 150 mg, U nivers ESTERone 11-16 Intramuscu ity of (DEPO-PROVE 00:30: 23:00 lar, ONCE, [place] RA) 00 :00 1 dose, Medical injection Fri Branch 150 mg 11/15/19 at 1830, Routine ketorolac 2019-0 2020- No 60mg 60 mg, Unive rs (TORADOL) 11-16 Intramuscu ity of injection 00:30: 23:15 lar, ONCE, [place] 60 mg 00 :00 1 dose, Medical Fri Branch 11/15/19 at 1830, Routine
produce service team member approving Restricted medication : SONDRA CHAVIRA ketorolac 2019-0 2020- No 60mg Univers (TORADOL) 11-16 ity of injection 00:30: 23:15 [place] 60 mg 00 :00 Medical Branch medroxyPROG 2019-0 2020- No 150mg Univ ers ESTERone 11-16 ity of (DEPO-PROVE 00:30: 23:00 [place] RA) 00 :00 Medical injection Branch 150 mg plecanatide 2019-0 2020- No Take by Un olayinka (TRULANCE) 11-15 mouth. ity of 3 mg Tab 23:52: 00:00 [place] 25 :00 Medical Branch plecanatide 2020-0 2020- No Take by Un olayinka (TRULANCE) 11-15 mouth. ity of 3 mg Tab 23:52: 00:00 [place] 25 :00 Medical Branch doxycycline 2020-0 Yes [id number] 100mg Take 1 Univers 100 mg 1-24 tablet by ity of tablet 00:00: mouth 2 [place] 00 (two) Medical times Branch daily. doxycycline 2020-0 Yes [id number] 100mg Take 1 Univers 100 mg 1-24 tablet by ity of tablet 00:00: mouth 2 [place] 00 (two) Medical times Branch daily. doxycycline 2020-0 Yes [id number] 100mg Take 1 Univers 100 mg 1-24 tablet by ity of tablet 00:00: mouth 2 [place] 00 (two) Medical times Branch daily. doxycycline 2020-0 Yes [id number] 100mg Take 1 Univers 100 mg 1-24 tablet by ity of tablet 00:00: mouth 2 [place] 00 (two) Medical times Branch daily. doxycycline 2020-0 Yes [id number] 100mg Take 1 Univers 100 mg 1-24 tablet by ity of tablet 00:00: mouth 2 [place] 00 (two) Medical times Branch daily. doxycycline 2020-0 Yes [id number] 100mg Take 1 Univers 100 mg 1-24 tablet by ity of tablet 00:00: mouth 2 [place] 00 (two) Medical times Branch daily. doxycycline 2020-0 Yes [id number] 100mg Take 1 Univers 100 mg 1-24 tablet by ity of tablet 00:00: mouth 2 [place] 00 (two) Medical times Branch daily. doxycycline 2020-0 Yes [id number] 100mg Take 1 Univers 100 mg 1-24 tablet by ity of tablet 00:00: mouth 2 [place] 00 (two) Medical times Branch daily. doxycycline 2020-0 Yes [id number] 100mg Take 1 Univers 100 mg 1-24 tablet by ity of tablet 00:00: mouth 2 [place] 00 (two) Medical times Branch daily. doxycycline 2020-0 2020- No [id number] 100mg Take 1 Univers 100 mg 1-24 02-07 tablet by ity of tablet 00:00: 00:00 mouth 2 [place] 00 :00 (two) Medical times Branch daily. doxycycline 2020-0 2020- No [id number] 100mg Take 1 Univers 100 mg 1-24 02-07 tablet by ity of tablet 00:00: 00:00 mouth 2 [place] 00 :00 (two) Medical times Branch daily. doxycycline 2020-0 2020- No [id number] 100mg Take 1 Univers 100 mg 1-24 02-07 tablet by ity of tablet 00:00: 00:00 mouth 2 [place] 00 :00 (two) Medical times Branch daily. Britany Kenfernandez 2018- No 40mg Common (Triamcinol (Triamcinol 2-03 S pirit one) one) 00:00: - [facility] 00 [facility] Britany Kenalog 2019- No 40mg Common (Triamcinol (Triamcinol 2-03 S pirit one) one) 00:00: - [facility] 00 [facility] Kenfernandez Kenalog 2019- No 40mg Common (Triamcinol (Triamcinol 2-03 S pirit one) one) 00:00: - [facility] 00 [facility] Kenfernandez Kenalog 2019- No 40mg Common (Triamcinol (Triamcinol 2-03 S pirit one) one) 00:00: - [facility] 00 [facility] Kenfernandez Kenalog 2019- No 40mg Common (Triamcinol (Triamcinol 2-03 S pirit one) one) 00:00: - [facility] 00 [facility] Kenfernandez Kenalog 2019- No 40mg Common (Triamcinol (Triamcinol 2-03 S pirit one) one) 00:00: - [facility] 00 [facility] Britany Kenalog 2019- No 40mg Common (Triamcinol (Triamcinol 2-03 S pirit one) one) 00:00: - [facility] 00 [facility] Britany Kenalog 2019- No 40mg Common (Triamcinol (Triamcinol 2-03 S pirit one) one) 00:00: - [facility] 00 [facility] Britany Kenfernandez 2019- No 40mg Common (Triamcinol (Triamcinol 2-03 S pirit one) one) 00:00: - [facility] 00 [facility] Britany Kenfernandez 2019- No 40mg Common (Triamcinol (Triamcinol 2-03 S pirit one) one) 00:00: - [facility] 00 [facility] Britany Kenfernandez 2019- No 40mg Common (Triamcinol (Triamcinol 2-03 S pirit one) one) 00:00: - [facility] 00 [facility] Britany Kenfernandez 2019- No 40mg Common (Triamcinol (Triamcinol 2-03 S pirit one) one) 00:00: - [facility] 00 [facility] Britany Kenfernandez 2019- No 40mg Common (Triamcinol (Triamcinol 2-03 S pirit one) one) 00:00: - [facility] 00 [facility] Britany Kenfernandez 2019- No 40mg Common (Triamcinol (Triamcinol 2-03 S pirit one) one) 00:00: - [facility] 00 [facility] Britany Kenfernandez 2019- No 40mg Common (Triamcinol (Triamcinol 2-03 S pirit one) one) 00:00: - [facility] 00 [facility] Britany Kenfernandez 2019- No 40mg Common (Triamcinol (Triamcinol 2-03 S pirit one) one) 00:00: - [facility] 00 [facility] Britany Kenfernandez 2019-1 No 40mg Common (Triamcinol (Triamcinol 2-03 S pirit one) one) 00:00: - [facility] 00 [facility] Britany Kenfernandez 2019-1 No 40mg Common (Triamcinol (Triamcinol 2-03 S pirit one) one) 00:00: - [facility] 00 [facility] Britany Kenfernandez 2019-1 No 40mg Common (Triamcinol (Triamcinol 2-03 S pirit one) one) 00:00: - [facility] 00 [facility] Britany Kenalog 2019- No 40mg Common (Triamcinol (Triamcinol 2-03 S pirit one) one) 00:00: - [facility] 00 [facility] Britany Kenalog 2019- No 40mg Common (Triamcinol (Triamcinol 2-03 S pirit one) one) 00:00: - [facility] 00 [facility] Britany Kenalog 2019- No 40mg Common (Triamcinol (Triamcinol 2-03 S pirit one) one) 00:00: - [facility] 00 [facility] Britany Kenfernandez 2019- No 40mg Common (Triamcinol (Triamcinol 2-03 S pirit one) one) 00:00: - [facility] 00 [facility] Britany Kenfernandez 2018- No 40mg Common (Triamcinol (Triamcinol 2-03 S pirit one) one) 00:00: - [facility] 00 [facility] Britany Kenfernandez 2019- No 40mg Common (Triamcinol (Triamcinol 2-03 S pirit one) one) 00:00: - [facility] 00 [facility] Britany Kenfernandez 2019- No 40mg Common (Triamcinol (Triamcinol 2-03 S pirit one) one) 00:00: - [facility] 00 [facility] Britany Kenfernandez 2019- No 40mg Common (Triamcinol (Triamcinol 0-22 S pirit one) one) 00:00: - [facility] 00 [facility] Kenfernandez Kenalog 2019- No 40mg Common (Triamcinol (Triamcinol 0-22 S pirit one) one) 00:00: - [facility] 00 [facility] Kenfernandez Kenalog 2019- No 40mg Common (Triamcinol (Triamcinol 0-22 S pirit one) one) 00:00: - [facility] 00 [facility] Kenfernandez Kenalog 2019- No 40mg Common (Triamcinol (Triamcinol 0-22 S pirit one) one) 00:00: - [facility] 00 [facility] Britany Kenalog 2019- No 40mg Common (Triamcinol (Triamcinol 0-22 S pirit one) one) 00:00: - [facility] 00 [facility] Britany Kenalog 2019-1 No 40mg Common (Triamcinol (Triamcinol 0-22 S pirit one) one) 00:00: - [facility] 00 [facility] Britany Kenalog 2019-1 No 40mg Common (Triamcinol (Triamcinol 0-22 S pirit one) one) 00:00: - [facility] 00 [facility] Britany Kenalog 2019- No 40mg Common (Triamcinol (Triamcinol 0-22 S pirit one) one) 00:00: - [facility] 00 [facility] Britany Kenfernandez 2019- No 40mg Common (Triamcinol (Triamcinol 0-22 S pirit one) one) 00:00: - [facility] 00 [facility] Kenfernandez Kenfernandez 2019- No 40mg Common (Triamcinol (Triamcinol 0-22 S pirit one) one) 00:00: - [facility] 00 [facility] Britany Kenfernandez 2019- No 40mg Common (Triamcinol (Triamcinol 0-22 S pirit one) one) 00:00: - [facility] 00 [facility] Kenfernandez Kenfernandez 2019- No 40mg Common (Triamcinol (Triamcinol 0-22 S pirit one) one) 00:00: - [facility] 00 [facility] Kenfernandez Kenalog 2019-1 No 40mg Common (Triamcinol (Triamcinol 0-22 S pirit one) one) 00:00: - [facility] 00 [facility] Kenfernandez Kenalog 2019- No 40mg Common (Triamcinol (Triamcinol 0-22 S pirit one) one) 00:00: - [facility] 00 [facility] Kenfernandez Kenalog 2019-1 No 40mg Common (Triamcinol (Triamcinol 0-22 S pirit one) one) 00:00: - [facility] 00 [facility] Kenfernandez Kenalog 2019-1 No 40mg Common (Triamcinol (Triamcinol 0-22 S pirit one) one) 00:00: - [facility]- No 40mg Common (Triamcinol (Triamcinol 0-22 S pirit one) one) 00:00: - [facility] 00 [facility] No [facility]mg Common (Triamcinol (Triamcinol 0-22 S pirit one) one) 00:00: - [facility] No 40mg Common (Triamcinol (Triamcinol 0-22 S pirit one) one) 00:00: - [facility] 00 [facility] Britany 2018- No 40mg Common (Triamcinol (Triamcinol 0-22 S pirit one) one) 00:00: - [facility] 00 [facility] 2018- No 40mg Common (Triamcinol (Triamcinol 0-22 S pirit one) one) 00:00: - [facility] 00 [facility] Britany 2018- No 40mg Common (Triamcinol (Triamcinol 0-22 S pirit one) one) 00:00: - [facility] 00 [facility] Britany Garg 2018- No 40mg Common (Triamcinol (Triamcinol 0-22 S pirit one) one) 00:00: - [facility] 00 [facility] 2018- No 40mg Common (Triamcinol (Triamcinol 0-22 S pirit one) one) 00:00: - [facility] 00 [facility] 2018- No 40mg Common (Triamcinol (Triamcinol 0-22 S pirit one) one) 00:00: - [facility] 00 [facility] 2018- No 40mg Common (Triamcinol (Triamcinol 0-22 S pirit one) one) 00:00: - [facility] medroxyPROG 2018- No 150mg Univ ers ESTERone 06-0716 ity of (DEPO-PROVE 16:30: 15:23 [place] RA) 00 :00 Medical injection Branch 150 mg medroxyPROG 2018- No 150mg 150 mg, U nivers ESTERone 06-07 0816 Intramuscu ity of (DEPO-PROVE 16:30: 15:23 lar, ONCE, [facility]) 00 :00 1 dose, Medical injection Fri Branch 150 mg 06/07/19 at 1130, Routine plecanatide 0 Yes Take by Uni vers (TRULANCE) 8-16 mouth. ity of 3 mg Tab 15:15: [place] [address] Medical Branch plecanatide Yes Take by Uni vers (TRULANCE) 8-16 mouth. ity of 3 mg Tab 15:15: [address] Branch plecanatide Yes Take by Uni vers (TRULANCE) 8-16 mouth. ity of 3 mg Tab 15:15: [address] Branch plecanatide Yes Take by Uni vers (TRULANCE) 8-16 mouth. ity of 3 mg Tab 15:15: [place] [address] Medical Branch linaCLOtide 0 Yes Univer s (LINZESS) 7-20 ity of 72 mcg Cap 00:00: [place] [address] Medical Branch linaCLOtide 2019-0 Yes Univer s (LINZESS) 7-20 ity of 72 mcg Cap 00:00: [place] [address] Medical Branch linaCLOtide 2019-0 Yes Univer s (LINZESS) 7-20 ity of 72 mcg Cap 00:00: [place] [address] Medical Branch linaCLOtide 2019-0 Yes Univer s (LINZESS) 7-20 ity of 72 mcg Cap 00:00: [place] [address] Medical Branch linaCLOtide 2019-0 Yes Univer s (LINZESS) 7-20 ity of 72 mcg Cap 00:00: [place] [address] Medical Branch linaCLOtide 2019-0 Yes Univer s (LINZESS) 7-20 ity of 72 mcg Cap 00:00: [place] [address] Medical Branch linaCLOtide 2019-0 Yes Univer s (LINZESS) 7-20 ity of 72 mcg Cap 00:00: [place] [address] Medical Branch linaCLOtide 2019-0 Yes Univer s (LINZESS) 7-20 ity of 72 mcg Cap 00:00: [place] [address] Medical Branch linaCLOtide 2019-0 Yes Univer s (LINZESS) 7-20 ity of 72 mcg Cap 00:00: [place] [address] Medical Branch linaCLOtide 2019-0 Yes Univer s (LINZESS) 7-20 ity of 72 mcg Cap 00:00: [place] [address] Medical Branch linaCLOtide 2019-0 Yes Univer s (LINZESS) 7-20 ity of 72 mcg Cap 00:00: [place] [address] Medical Branch linaCLOtide 2019-0 Yes Univer s (LINZESS) 7-20 ity of 72 mcg Cap 00:00: [place] [address] Medical Branch linaCLOtide 2019-0 Yes Univer s (LINZESS) 7-20 ity of 72 mcg Cap 00:00: [place] [address] Medical Branch linaCLOtide 2019-0 Yes Univer s (LINZESS) 7-20 ity of 72 mcg Cap 00:00: [place] [address] Medical Branch linaCLOtide 2019-0 Yes Univer s (LINZESS) 7-20 ity of 72 mcg Cap 00:00: [place] [address] Medical Branch linaCLOtide 2019-0 Yes Univer s (LINZESS) 7-20 ity of 72 mcg Cap 00:00: [place] [address] Medical Branch linaCLOtide 2019-0 Yes Univer s (LINZESS) 7-20 ity of 72 mcg Cap 00:00: [place] [address] Medical Branch linaCLOtide 2019-0 Yes Univer s (LINZESS) 7-20 ity of 72 mcg Cap 00:00: [place] [address] Medical Branch linaCLOtide 2019-0 Yes Univer s (LINZESS) 7-20 ity of 72 mcg Cap 00:00: [place] [address] Medical Branch linaCLOtide 2019-0 Yes Univer s (LINZESS) 7-20 ity of 72 mcg Cap 00:00: [place] [address] Medical Branch linaCLOtide 2019-0 Yes Univer s (LINZESS) 7-20 ity of 72 mcg Cap 00:00: [place] [address] Medical Branch linaCLOtide 2019-0 Yes Univer s (LINZESS) 7-20 ity of 72 mcg Cap 00:00: [place] [address] Medical Branch linaCLOtide 2019-0 Yes Univer s (LINZESS) 7-20 ity of 72 mcg Cap 00:00: [place] [address] Medical Branch linaCLOtide 2019-0 Yes Univer s (LINZESS) 7-20 ity of 72 mcg Cap 00:00: [place] [address] Medical Branch linaCLOtide 2019-0 Yes Univer s (LINZESS) 7-20 ity of 72 mcg Cap 00:00: [place] [address] Medical Branch linaCLOtide 2019-0 Yes Univer s (LINZESS) 7-20 ity of 72 mcg Cap 00:00: [place] [address] Medical Branch linaCLOtide 2019-0 Yes Univer s (LINZESS) 7-20 ity of 72 mcg Cap 00:00: [place] [address] Medical Branch linaCLOtide 2019-0 Yes Univer s (LINZESS) 7-20 ity of 72 mcg Cap 00:00: [place] [address] Medical Branch linaCLOtide 2019-0 Yes Univer s (LINZESS) 7-20 ity of 72 mcg Cap 00:00: [place] [address] Medical Branch linaCLOtide 2019-0 Yes Univer s (LINZESS) 7-20 ity of 72 mcg Cap 00:00: [place] [address] Medical Branch linaCLOtide 2019-0 Yes Univer s (LINZESS) 7-20 ity of 72 mcg Cap 00:00: [place] [address] Medical Branch linaCLOtide 2019-0 Yes Univer s (LINZESS) 7-20 ity of 72 mcg Cap 00:00: [place] [address] Medical Branch linaCLOtide 2019-0 Yes Univer s (LINZESS) 7-20 ity of 72 mcg Cap 00:00: [place] [address] Medical Branch linaCLOtide 2019-0 Yes Univer s (LINZESS) 7-20 ity of 72 mcg Cap 00:00: [place] [address] Medical Branch linaCLOtide 2019-0 Yes Univer s (LINZESS) 7-20 ity of 72 mcg Cap 00:00: [place] [address] Medical Branch linaCLOtide 2019-0 Yes Univer s (LINZESS) 7-20 ity of 72 mcg Cap 00:00: [place] [address] Medical Branch linaCLOtide 2019-0 Yes Univer s (LINZESS) 7-20 ity of 72 mcg Cap 00:00: [place] [address] Medical Branch linaCLOtide 2019-0 Yes Univer s (LINZESS) 7-20 ity of 72 mcg Cap 00:00: [place] [address] Medical Branch linaCLOtide 2019-0 Yes Univer s (LINZESS) 7-20 ity of 72 mcg Cap 00:00: [place] [address] Medical Branch linaCLOtide 2019-0 Yes Univer s (LINZESS) 7-20 ity of 72 mcg Cap 00:00: [place] [address] Medical Branch linaCLOtide 2019-0 Yes Univer s (LINZESS) 7-20 ity of 72 mcg Cap 00:00: Medical Branch linaCLOtide 0 Yes Univer s (LINZESS) 7-20 ity of 72 mcg Cap 00:00: Medical Branch linaCLOtide 0 Yes Univer s (LINZESS) 7-20 ity of 72 mcg Cap 00:00: [place] [facility] linaCLOtide 0 Yes Univer s (LINZESS) 7-20 ity of 72 mcg Cap 00:00: [place] [facility] linaCLOtide 0 Yes Univer s (LINZESS) 7-20 ity of 72 mcg Cap 00:00: [place] [facility] Branch linaCLOtide 0 Yes Univer s (LINZESS) 7-20 ity of 72 mcg Cap 00:00: [place] [facility] Branch linaCLOtide 0 Yes Univer s (LINZESS) 7-20 ity of 72 mcg Cap 00:00: [place] [facility] Branch linaCLOtide 0 Yes Univer s (LINZESS) 7-20 ity of 72 mcg Cap 00:00: [place] [facility] Branch metroNIDAZO Yes [id number] 500mg Take 1 Univers LE (FLAGYL) 6-26 tablet by ity of 500 mg 00:00: mouth 2 [place] tablet 00 (two) Medical times Branch daily. metroNIDAZO Yes [id number] 500mg Take 1 Univers LE (FLAGYL) 6-26 tablet by ity of 500 mg 00:00: mouth 2 [place] tablet 00 (two) Medical times Branch daily. metroNIDAZO Yes [id number] 500mg Take 1 Univers LE (FLAGYL) 6-26 tablet by ity of 500 mg 00:00: mouth 2 [place] tablet 00 (two) Medical times Branch daily. metroNIDAZO Yes [id number] 500mg Take 1 Univers LE (FLAGYL) 6-26 tablet by ity of 500 mg 00:00: mouth 2 [place] tablet 00 (two) Medical times Branch daily. metroNIDAZO 2020- No [id number] 500mg Take 1 Univers LE (FLAGYL) 6-26 01-24 tablet by it y of 500 mg 00:00: 00:00 mouth 2 [place] tablet 00 :00 (two) Medical times Branch daily. metroNIDAZO 2020- No [id number] 500mg Take 1 Univers LE (FLAGYL) 611-15 tablet by it y of 500 mg 00:00: 00:00 mouth 2 [place] tablet 00 :00 (two) Medical counts include 234 beds at [facility] Branch daily. OMEPRAZOLE Yes 40mg Take 40 mg U nivers ORAL 6-19 by mouth. ity of 15:31: [address] ACETAMINOPH Yes Take by Uni vers EN EXTRA 6-19 mouth. ity of STRENGTH 15:31: [address] Branch OMEPRAZOLE Yes 40mg Take 40 mg U nivers ORAL 6-19 by mouth. ity of 15:31: [address] ACETAMINOPH Yes Take by Uni vers EN EXTRA 6-19 mouth. ity of STRENGTH 15:31: [address] Branch OMEPRAZOLE Yes 40mg Take 40 mg U nivers ORAL 6-19 by mouth. ity of 15:31: [address] ACETAMINOPH Yes Take by Uni vers EN EXTRA 6-19 mouth. ity of STRENGTH 15:31: [address] Branch OMEPRAZOLE Yes 40mg Take 40 mg U nivers ORAL 6-19 by mouth. ity of 15:31: [address] ACETAMINOPH Yes Take by Uni vers EN EXTRA 6-19 mouth. ity of STRENGTH 15:31: [address] Branch OMEPRAZOLE Yes 40mg Take 40 mg U nivers ORAL 6-19 by mouth. ity of 15:31: [address] ACETAMINOPH Yes Take by Uni vers EN EXTRA 6-19 mouth. ity of STRENGTH 15:31: [address] Branch OMEPRAZOLE Yes 40mg Take 40 mg U nivers ORAL 6-19 by mouth. ity of 15:31: [address] ACETAMINOPH Yes Take by Uni vers EN EXTRA 6-19 mouth. ity of STRENGTH 15:31: [address] Branch OMEPRAZOLE Yes 40mg Take 40 mg U nivers ORAL 6-19 by mouth. ity of 15:31: [address] ACETAMINOPH Yes Take by Uni vers EN EXTRA 6-19 mouth. ity of STRENGTH 15:31: [address] Branch OMEPRAZOLE Yes 40mg Take 40 mg U nivers ORAL 6-19 by mouth. ity of 15:31: [address] ACETAMINOPH 0 Yes Take by Uni vers EN EXTRA 6-19 mouth. ity of STRENGTH 15:31: [address] Branch OMEPRAZOLE 2018-0 Yes 40mg Take 40 mg U nivers ORAL 6-19 by mouth. ity of 15:31: [address] OMEPRAZOLE 0 Yes 40mg Take 40 mg U nivers ORAL 6-19 by mouth. ity of 15:31: [address] OMEPRAZOLE 2018-0 Yes 40mg Take 40 mg U nivers ORAL 6-19 by mouth. ity of 15:31: [address] OMEPRAZOLE 0 Yes 40mg Take 40 mg U nivers ORAL 6-19 by mouth. ity of 15:31: [address] OMEPRAZOLE 2018-0 Yes 40mg Take 40 mg U nivers ORAL 6-19 by mouth. ity of 15:31: [address] OMEPRAZOLE 0 Yes 40mg Take 40 mg U nivers ORAL 6-19 by mouth. ity of 15:31: [address] OMEPRAZOLE 0 Yes 40mg Take 40 mg U nivers ORAL 6-19 by mouth. ity of 15:31: [address] OMEPRAZOLE 0 Yes 40mg Take 40 mg U nivers ORAL 6-19 by mouth. ity of 15:31: [address] OMEPRAZOLE 2018-0 Yes 40mg Take 40 mg U nivers ORAL 6-19 by mouth. ity of 15:31: [address] OMEPRAZOLE 0 Yes 40mg Take 40 mg U nivers ORAL 6-19 by mouth. ity of 15:31: [address] OMEPRAZOLE 2018-0 Yes 40mg Take 40 mg U nivers ORAL 6-19 by mouth. ity of 15:31: [address] OMEPRAZOLE 2018-0 Yes 40mg Take 40 mg U nivers ORAL 6-19 by mouth. ity of 15:31: [address] ACETAMINOPH 0 Yes Take by Uni vers EN EXTRA 6-19 mouth. ity of STRENGTH 15:31: [address] Branch OMEPRAZOLE 0 Yes 40mg Take 40 mg U nivers ORAL 6-19 by mouth. ity of 15:31: [address] ACETAMINOPH 2019-0 Yes Take by Uni vers EN EXTRA 6-19 mouth. ity of STRENGTH 15:31: [address] OMEPRAZOLE Yes 40mg Take 40 mg U nivers ORAL 6-19 by mouth. ity of 15:31: [address] ACETAMINOPH Yes Take by Uni vers EN EXTRA 6-19 mouth. ity of STRENGTH 15:31: [address] OMEPRAZOLE Yes 40mg Take 40 mg U nivers ORAL 6-19 by mouth. ity of 15:31: [address] ACETAMINOPH Yes Take by Uni vers EN EXTRA 6-19 mouth. ity of STRENGTH 15:31: [address] OMEPRAZOLE Yes 40mg Take 40 mg U nivers ORAL 6-19 by mouth. ity of 15:31: [address] ACETAMINOPH Yes Take by Uni vers EN EXTRA 6-19 mouth. ity of STRENGTH 15:31: [address] No known No Univers medications ity of [facility] Diazepam Diazepam Yes Severino 1 tablet C ommon Smart as needed [facility] (ok to - [facility] fill on or [facility] after [facility] 07/23/20) [facility] Linzess Linzess Yes Severino 1 capsule Co mmon Smart [facility] Omeprazole Omeprazole Yes Severino 1 tablet Common Smart [facility] Amitriptyli Amitriptyli Yes Severino 1 tablet Common ne HCl ne HCl Smart at bedtime Spir it - [facility] Trazodone Trazodone Yes Severino Take 1/2 Common HCl HCl Smart tab QHS [facility] Imitrex Imitrex Yes Severino 1 tablet Com mon Smart at least 2 Spirit hours - [facility] between [facility] doses as [facility] needed [facility] Omeprazole Omeprazole No 1{table QD Omeprazole 20 MG 20 MG t} 20 MG Linzess 145 Linzess 145 No Linzess MCG MCG 145 MCG diazePAM 2 diazePAM 2 No 1{table diazePAM 2 MG MG t_as_ne MG eded} Omeprazole Omeprazole No 1{table QD Omeprazole 20 MG 20 MG t} 20 MG Omeprazole Omeprazole No 1{table QD Omeprazole 20 MG 20 MG t} 20 MG diazePAM 2 diazePAM 2 No 1{table diazePAM 2 MG MG t_as_ne MG eded} Linzess 145 Linzess 145 No Linzess MCG MCG 145 MCG Omeprazole Omeprazole No 1{table QD Omeprazole 20 MG 20 MG t} 20 MG Omeprazole Omeprazole No 1{table QD Omeprazole 20 MG 20 MG t} 20 MG diazePAM 2 diazePAM 2 No 1{table diazePAM 2 MG MG t_as_ne MG eded} Linzess 145 Linzess 145 No Linzess MCG MCG 145 MCG Omeprazole Omeprazole No 1{table QD Omeprazole 20 MG 20 MG t} 20 MG Omeprazole Omeprazole No 1{table QD Omeprazole 20 MG 20 MG t} 20 MG diazePAM 2 diazePAM 2 No 1{table diazePAM 2 MG MG t_as_ne MG eded} Linzess 145 Linzess 145 No Linzess MCG MCG 145 MCG Omeprazole Omeprazole No 1{table QD Omeprazole 20 MG 20 MG t} 20 MG Omeprazole Omeprazole No 1{table QD Omeprazole 20 MG 20 MG t} 20 MG Omeprazole Omeprazole No Omeprazole 20 MG 20 MG 20 MG Linzess 145 Linzess 145 No Linzess MCG MCG 145 MCG Omeprazole Omeprazole No 1{table QD Omeprazole 20 MG 20 MG t} 20 MG Omeprazole Omeprazole No Omeprazole 20 MG 20 MG 20 MG Linzess 145 Linzess 145 No Linzess MCG MCG 145 MCG Omeprazole Omeprazole No 1{table QD Omeprazole 20 MG 20 MG t} 20 MG Omeprazole Omeprazole No Omeprazole 20 MG 20 MG 20 MG Linzess 145 Linzess 145 No Linzess MCG MCG 145 MCG Emgality Emgality No Emgality 120 MG/ML 120 MG/ML 120 MG/ML Omeprazole Omeprazole No Omeprazole 20 MG 20 MG 20 MG Linzess 145 Linzess 145 No Linzess MCG MCG 145 MCG Omeprazole Omeprazole No 1{table QD Omeprazole 20 MG 20 MG t} 20 MG Omeprazole Omeprazole No 1{table QD Omeprazole 20 MG 20 MG t} 20 MG Topiramate Topiramate No Topiramate 50 MG 50 MG 50 MG Linzess 145 Linzess 145 No Linzess MCG MCG 145 MCG Omeprazole Omeprazole No Omeprazole 20 MG 20 MG 20 MG Emgality Emgality No Emgality 120 MG/ML 120 MG/ML 120 MG/ML Omeprazole Omeprazole No 1{table QD Omeprazole 20 MG 20 MG t} 20 MG Topiramate Topiramate No Topiramate 50 MG 50 MG 50 MG Linzess 145 Linzess 145 No Linzess MCG MCG 145 MCG Omeprazole Omeprazole No Omeprazole 20 MG 20 MG 20 MG Emgality Emgality No Emgality 120 MG/ML 120 MG/ML 120 MG/ML Omeprazole Omeprazole No 1{table QD Omeprazole 20 MG 20 MG t} 20 MG Topiramate Topiramate No Topiramate 50 MG 50 MG 50 MG Linzess 145 Linzess 145 No Linzess MCG MCG 145 MCG Omeprazole Omeprazole No Omeprazole 20 MG 20 MG 20 MG Emgality Emgality No Emgality 120 MG/ML 120 MG/ML 120 MG/ML Emgality Emgality No Emgality 120 MG/ML 120 MG/ML 120 MG/ML Topiramate Topiramate No Topiramate 50 MG 50 MG 50 MG Omeprazole Omeprazole No Omeprazole 20 MG 20 MG 20 MG Mesalamine Mesalamine No 2{table QD Mesalamine 1.2 GM 1.2 GM ts_with 1.2 GM _a_meal } Linzess 145 Linzess 145 No Linzess MCG MCG 145 MCG Hyoscyamine Hyoscyamine No 1{table TID Hyoscyamin Sulfate Sulfate t_as_ne e Sulfate 0.125 MG 0.125 MG eded} 0.125 MG Omeprazole Omeprazole No 1{table QD Omeprazole 20 MG 20 MG t} 20 MG Emgality Emgality No Emgality 120 MG/ML 120 MG/ML 120 MG/ML Linzess 145 Linzess 145 No Linzess MCG MCG 145 MCG Omeprazole Omeprazole No Omeprazole 20 MG 20 MG 20 MG Omeprazole Omeprazole No 1{table QD Omeprazole 20 MG 20 MG t} 20 MG Topiramate Topiramate No Topiramate 50 MG 50 MG 50 MG Hyoscyamine Hyoscyamine No 1{table TID Hyoscyamin Sulfate Sulfate t_as_ne e Sulfate 0.125 MG 0.125 MG eded} 0.125 MG Mesalamine Mesalamine No 2{table QD Mesalamine 1.2 GM 1.2 GM ts_with 1.2 GM _a_meal } Emgality Emgality No Emgality 120 MG/ML 120 MG/ML 120 MG/ML Linzess 145 Linzess 145 No Linzess MCG MCG 145 MCG Omeprazole Omeprazole No Omeprazole 20 MG 20 MG 20 MG Omeprazole Omeprazole No 1{table QD Omeprazole 20 MG 20 MG t} 20 MG Topiramate Topiramate No Topiramate 50 MG 50 MG 50 MG Hyoscyamine Hyoscyamine No 1{table TID Hyoscyamin Sulfate Sulfate t_as_ne e Sulfate 0.125 MG 0.125 MG eded} 0.125 MG Mesalamine Mesalamine No 2{table QD Mesalamine 1.2 GM 1.2 GM ts_with 1.2 GM _a_meal } Emgality Emgality No Emgality 120 MG/ML 120 MG/ML 120 MG/ML Linzess 145 Linzess 145 No Linzess MCG MCG 145 MCG Omeprazole Omeprazole No Omeprazole 20 MG 20 MG 20 MG Omeprazole Omeprazole No 1{table QD Omeprazole 20 MG 20 MG t} 20 MG Topiramate Topiramate No Topiramate 50 MG 50 MG 50 MG Hyoscyamine Hyoscyamine No 1{table TID Hyoscyamin Sulfate Sulfate t_as_ne e Sulfate 0.125 MG 0.125 MG eded} 0.125 MG Mesalamine Mesalamine No 2{table QD Mesalamine 1.2 GM 1.2 GM ts_with 1.2 GM _a_meal } Emgality Emgality No Emgality 120 MG/ML 120 MG/ML 120 MG/ML Linzess 145 Linzess 145 No Linzess MCG MCG 145 MCG Omeprazole Omeprazole No Omeprazole 20 MG 20 MG 20 MG Omeprazole Omeprazole No 1{table QD Omeprazole 20 MG 20 MG t} 20 MG Topiramate Topiramate No Topiramate 50 MG 50 MG 50 MG Hyoscyamine Hyoscyamine No 1{table TID Hyoscyamin Sulfate Sulfate t_as_ne e Sulfate 0.125 MG 0.125 MG eded} 0.125 MG Mesalamine Mesalamine No 2{table QD Mesalamine 1.2 GM 1.2 GM ts_with 1.2 GM _a_meal } Emgality Emgality No Emgality 120 MG/ML 120 MG/ML 120 MG/ML Pantoprazol Pantoprazol No 1{table QD Pantoprazo e Sodium 40 e Sodium 40 t} le Sodium MG MG 40 MG Mesalamine Mesalamine No 2{table QD Mesalamine 1.2 GM 1.2 GM ts_with 1.2 GM _a_meal } Hyoscyamine Hyoscyamine No 1{table TID Hyoscyamin Sulfate Sulfate t_as_ne e Sulfate 0.125 MG 0.125 MG eded} 0.125 MG Ondansetron Ondansetron No 1{table QD Ondansetro HCl 4 MG HCl 4 MG t_as_ne n HCl 4 MG eded} Hyoscyamine Hyoscyamine No 1{table TID Hyoscyamin Sulfate Sulfate t_as_ne e Sulfate 0.125 MG 0.125 MG eded} 0.125 MG Pantoprazol Pantoprazol No 1{table QD Pantoprazo e Sodium 40 e Sodium 40 t} le Sodium MG MG 40 MG Emgality Emgality No Emgality 120 MG/ML 120 MG/ML 120 MG/ML Mesalamine Mesalamine No 2{table QD Mesalamine 1.2 GM 1.2 GM ts_with 1.2 GM _a_meal } Ondansetron Ondansetron No Ondansetro HCl 4 MG HCl 4 MG n HCl 4 MG Hyoscyamine Hyoscyamine No 1{table TID Hyoscyamin Sulfate Sulfate t_as_ne e Sulfate 0.125 MG 0.125 MG eded} 0.125 MG Pantoprazol Pantoprazol No 1{table QD Pantoprazo e Sodium 40 e Sodium 40 t} le Sodium MG MG 40 MG Emgality Emgality No Emgality 120 MG/ML 120 MG/ML 120 MG/ML Mesalamine Mesalamine No 2{table QD Mesalamine 1.2 GM 1.2 GM ts_with 1.2 GM _a_meal } Ondansetron Ondansetron No Ondansetro HCl 4 MG HCl 4 MG n HCl 4 MG Hyoscyamine Hyoscyamine No 1{table TID Hyoscyamin Sulfate Sulfate t_as_ne e Sulfate 0.125 MG 0.125 MG eded} 0.125 MG Ondansetron Ondansetron No Ondansetro HCl 4 MG HCl 4 MG n HCl 4 MG Pantoprazol Pantoprazol No 1{table QD Pantoprazo e Sodium 40 e Sodium 40 t} le Sodium MG MG 40 MG Emgality Emgality No Emgality 120 MG/ML 120 MG/ML 120 MG/ML Mesalamine Mesalamine No 2{table QD Mesalamine 1.2 GM 1.2 GM ts_with 1.2 GM _a_meal } Dicyclomine Dicyclomine No TID Dicyclomin HCl 20 MG HCl 20 MG e HCl 20 MG Emgality Emgality No Emgality 120 MG/ML 120 MG/ML 120 MG/ML Ondansetron Ondansetron No Ondansetro HCl 4 MG HCl 4 MG n HCl 4 MG Pantoprazol Pantoprazol No 1{table QD Pantoprazo e Sodium 40 e Sodium 40 t} le Sodium MG MG 40 MG Ondansetron Ondansetron No 1{table QD Ondansetro HCl 4 MG HCl 4 MG t_as_ne n HCl 4 MG eded} Dicyclomine Dicyclomine No TID Dicyclomin HCl 20 MG HCl 20 MG e HCl 20 MG Emgality Emgality No Emgality 120 MG/ML 120 MG/ML 120 MG/ML Ondansetron Ondansetron No Ondansetro HCl 4 MG HCl 4 MG n HCl 4 MG Pantoprazol Pantoprazol No 1{table QD Pantoprazo e Sodium 40 e Sodium 40 t} le Sodium MG MG 40 MG Ondansetron Ondansetron No 1{table QD Ondansetro HCl 4 MG HCl 4 MG t_as_ne n HCl 4 MG eded} Ondansetron Ondansetron No Ondansetro HCl 4 MG HCl 4 MG n HCl 4 MG Pantoprazol Pantoprazol No 1{table QD Pantoprazo e Sodium 40 e Sodium 40 t} le Sodium MG MG 40 MG diazePAM 2 diazePAM 2 No 1{table diazePAM 2 MG MG t_as_ne MG eded} Dicyclomine Dicyclomine No TID Dicyclomin HCl 20 MG HCl 20 MG e HCl 20 MG Ondansetron Ondansetron No 1{table QD Ondansetro HCl 4 MG HCl 4 MG t_as_ne n HCl 4 MG eded} Hyoscyamine Hyoscyamine No 1{table TID Hyoscyamin Sulfate Sulfate t_as_ne e Sulfate 0.125 MG 0.125 MG eded} 0.125 MG Emgality Emgality No Emgality 120 MG/ML 120 MG/ML 120 MG/ML Mesalamine Mesalamine No 2{table QD Mesalamine 1.2 GM 1.2 GM ts_with 1.2 GM _a_meal } Ondansetron Ondansetron No Ondansetro HCl 4 MG HCl 4 MG n HCl 4 MG Mesalamine Mesalamine No 2{table QD Mesalamine 1.2 GM 1.2 GM ts_with 1.2 GM _a_meal } Pantoprazol Pantoprazol No 1{table QD Pantoprazo e Sodium 40 e Sodium 40 t} le Sodium MG MG 40 MG Emgality Emgality No Emgality 120 MG/ML 120 MG/ML 120 MG/ML Hyoscyamine Hyoscyamine No 1{table TID Hyoscyamin Sulfate Sulfate t_as_ne e Sulfate 0.125 MG 0.125 MG eded} 0.125 MG diazePAM 2 diazePAM 2 No 1{table diazePAM 2 MG MG t_as_ne MG eded} Dicyclomine Dicyclomine No TID Dicyclomin HCl 20 MG HCl 20 MG e HCl 20 MG Emgality Emgality No Emgality 120 MG/ML 120 MG/ML 120 MG/ML Ondansetron Ondansetron No Ondansetro HCl 4 MG HCl 4 MG n HCl 4 MG Mesalamine Mesalamine No 2{table QD Mesalamine 1.2 GM 1.2 GM ts_with 1.2 GM _a_meal } Pantoprazol Pantoprazol No 1{table QD Pantoprazo e Sodium 40 e Sodium 40 t} le Sodium MG MG 40 MG Hyoscyamine Hyoscyamine No 1{table TID Hyoscyamin Sulfate Sulfate t_as_ne e Sulfate 0.125 MG 0.125 MG eded} 0.125 MG Dicyclomine Dicyclomine No TID Dicyclomin HCl 20 MG HCl 20 MG e HCl 20 MG Emgality Emgality No Emgality 120 MG/ML 120 MG/ML 120 MG/ML Dicyclomine Dicyclomine No TID Dicyclomin HCl 20 MG HCl 20 MG e HCl 20 MG Pantoprazol Pantoprazol No 1{table QD Pantoprazo e Sodium 40 e Sodium 40 t} le Sodium MG MG 40 MG Hyoscyamine Hyoscyamine No 1{table TID Hyoscyamin Sulfate Sulfate t_as_ne e Sulfate 0.125 MG 0.125 MG eded} 0.125 MG Mesalamine Mesalamine No 2{table QD Mesalamine 1.2 GM 1.2 GM ts_with 1.2 GM _a_meal } Ondansetron Ondansetron No Ondansetro HCl 4 MG HCl 4 MG n HCl 4 MG Emgality Emgality No Emgality 120 MG/ML 120 MG/ML 120 MG/ML Dicyclomine Dicyclomine No TID Dicyclomin HCl 20 MG HCl 20 MG e HCl 20 MG Pantoprazol Pantoprazol No 1{table QD Pantoprazo e Sodium 40 e Sodium 40 t} le Sodium MG MG 40 MG Hyoscyamine Hyoscyamine No 1{table TID Hyoscyamin Sulfate Sulfate t_as_ne e Sulfate 0.125 MG 0.125 MG eded} 0.125 MG Mesalamine Mesalamine No 2{table QD Mesalamine 1.2 GM 1.2 GM ts_with 1.2 GM _a_meal } Ondansetron Ondansetron No Ondansetro HCl 4 MG HCl 4 MG n HCl 4 MG Emgality Emgality No Emgality 120 MG/ML 120 MG/ML 120 MG/ML Dicyclomine Dicyclomine No TID Dicyclomin HCl 20 MG HCl 20 MG e HCl 20 MG Pantoprazol Pantoprazol No 1{table QD Pantoprazo e Sodium 40 e Sodium 40 t} le Sodium MG MG 40 MG Hyoscyamine Hyoscyamine No 1{table TID Hyoscyamin Sulfate Sulfate t_as_ne e Sulfate 0.125 MG 0.125 MG eded} 0.125 MG Mesalamine Mesalamine No 2{table QD Mesalamine 1.2 GM 1.2 GM ts_with 1.2 GM _a_meal } Ondansetron Ondansetron No Ondansetro HCl 4 MG HCl 4 MG n HCl 4 MG Ondansetron Ondansetron No Ondansetro HCl 4 MG HCl 4 MG n HCl 4 MG Emgality Emgality No Emgality 120 MG/ML 120 MG/ML 120 MG/ML Hyoscyamine Hyoscyamine No 1{table TID Hyoscyamin Sulfate Sulfate t_as_ne e Sulfate 0.125 MG 0.125 MG eded} 0.125 MG Mesalamine Mesalamine No 2{table QD Mesalamine 1.2 GM 1.2 GM ts_with 1.2 GM _a_meal } Dicyclomine Dicyclomine No TID Dicyclomin HCl 20 MG HCl 20 MG e HCl 20 MG Augmentin Augmentin No 1{table BID Augmentin 875-125 MG 875-125 MG t} 875-125 MG Pantoprazol Pantoprazol No 1{table QD Pantoprazo e Sodium 40 e Sodium 40 t} le Sodium MG MG 40 MG Pantoprazol Pantoprazol No 1{table QD Pantoprazo e Sodium 40 e Sodium 40 t} le Sodium MG MG 40 MG Hyoscyamine Hyoscyamine No 1{table TID Hyoscyamin Sulfate Sulfate t_as_ne e Sulfate 0.125 MG 0.125 MG eded} 0.125 MG Mesalamine Mesalamine No 2{table QD Mesalamine 1.2 GM 1.2 GM ts_with 1.2 GM _a_meal } Augmentin Augmentin No 1{table BID Augmentin 875-125 MG 875-125 MG t} 875-125 MG Ondansetron Ondansetron No Ondansetro HCl 4 MG HCl 4 MG n HCl 4 MG Emgality Emgality No Emgality 120 MG/ML 120 MG/ML 120 MG/ML Dicyclomine Dicyclomine No TID Dicyclomin HCl 20 MG HCl 20 MG e HCl 20 MG Pantoprazol Pantoprazol No 1{table QD Pantoprazo e Sodium 40 e Sodium 40 t} le Sodium MG MG 40 MG Hyoscyamine Hyoscyamine No 1{table TID Hyoscyamin Sulfate Sulfate t_as_ne e Sulfate 0.125 MG 0.125 MG eded} 0.125 MG Mesalamine Mesalamine No 2{table QD Mesalamine 1.2 GM 1.2 GM ts_with 1.2 GM _a_meal } Augmentin Augmentin No 1{table BID Augmentin 875-125 MG 875-125 MG t} 875-125 MG Ondansetron Ondansetron No Ondansetro HCl 4 MG HCl 4 MG n HCl 4 MG Emgality Emgality No Emgality 120 MG/ML 120 MG/ML 120 MG/ML Dicyclomine Dicyclomine No TID Dicyclomin HCl 20 MG HCl 20 MG e HCl 20 MG Emgality Emgality No Emgality 120 MG/ML 120 MG/ML 120 MG/ML Dicyclomine Dicyclomine No TID Dicyclomin HCl 20 MG HCl 20 MG e HCl 20 MG Pantoprazol Pantoprazol No 1{table QD Pantoprazo e Sodium 40 e Sodium 40 t} le Sodium MG MG 40 MG Mesalamine Mesalamine No 2{table QD Mesalamine 1.2 GM 1.2 GM ts_with 1.2 GM _a_meal } Ondansetron Ondansetron No Ondansetro HCl 4 MG HCl 4 MG n HCl 4 MG Ondansetron Ondansetron No 1{table QD Ondansetro HCl 4 MG HCl 4 MG t_as_ne n HCl 4 MG eded} Hyoscyamine Hyoscyamine No 1{table TID Hyoscyamin Sulfate Sulfate t_as_ne e Sulfate 0.125 MG 0.125 MG eded} 0.125 MG Emgality Emgality No Emgality 120 MG/ML 120 MG/ML 120 MG/ML Dicyclomine Dicyclomine No TID Dicyclomin HCl 20 MG HCl 20 MG e HCl 20 MG Pantoprazol Pantoprazol No 1{table QD Pantoprazo e Sodium 40 e Sodium 40 t} le Sodium MG MG 40 MG Mesalamine Mesalamine No 2{table QD Mesalamine 1.2 GM 1.2 GM ts_with 1.2 GM _a_meal } Ondansetron Ondansetron No Ondansetro HCl 4 MG HCl 4 MG n HCl 4 MG Ondansetron Ondansetron No 1{table QD Ondansetro HCl 4 MG HCl 4 MG t_as_ne n HCl 4 MG eded} Hyoscyamine Hyoscyamine No 1{table TID Hyoscyamin Sulfate Sulfate t_as_ne e Sulfate 0.125 MG 0.125 MG eded} 0.125 MG Immunizations Ordered Immunization Filled Immunization Date Status Commen ts Source Name Name Britany Garg 2019-09-24 Completed [facility] 08:52:00 - [facility] Britany Garg 2019-09-24 Completed [facility] ([facility] (Triamcinolone) 08:52:00 - [facility] 2019-09-24 Completed [facility] (Triamcinolone) (Triamcinolone) 08:52:00 - [facility] 2019-09-24 Completed [facility] (Triamcinolone) (Triamcinolone) 08:52:00 - [facility] 2019-08-13 Completed [facility] (Triamcinolone) (Triamcinolone) 09:33:00 - [facility] 2019-08-13 Completed [facility] (Triamcinolone) (Triamcinolone) 09:33:00 [facility] 2019-08-13 Completed [facility] (Triamcinolone) (Triamcinolone) 09:33:00 [facility] 2019-08-13 Completed [facility] (Triamcinolone) (Triamcinolone) 09:33:00 - [facility] Vital Signs Vital Name Observation Time Observation Value Comments Source height 2022-08-24 10:50:00 63 [in_i] [facility] weight 2022-08-24 10:50:00 160.4 [lb_av] [facility] temperature 2022-08-24 10:50:00 97.4 [degF] [facility] bmi 2022-08-24 10:50:00 28.41 kg/m2 [facility] oximetry 2022-08-24 10:50:00 98 % [facility] respiratory rate 2022-08-24 10:50:00 18 /min [facility] blood pressure 2022-08-24 10:50:00 134 mm[Hg] Common [facility] - systolic [facility] [place] pressure 2022-08-24 10:50:00 67 mm[Hg] [facility] - diastolic [facility] height 2022-08-16 16:10:00 63 [in_i] Common [facility] weight 2022-08-16 16:10:00 161.7 [lb_av] [facility] temperature 2022-08-16 16:10:00 98.0 [degF] Common [facility] bmi 2022-08-16 16:10:00 28.64 kg/m2 [facility] oximetry 2022-08-16 16:10:00 100 % [facility] respiratory rate 2022-08-16 16:10:00 18 /min [facility] blood pressure 2022-08-16 16:10:00 137 mm[Hg] Common [facility] systolic [facility] blood pressure 2022-08-16 16:10:00 85 mm[Hg] [facility] diastolic [facility] blood pressure 2022-07-26 14:00:00 76 mm[Hg] Common [facility] diastolic [facility] height 2022-07-26 14:00:00 63 [in_i] Common [facility] weight 2022-07-26 14:00:00 159 [lb_av] [facility] temperature 2022-07-26 14:00:00 97.4 [degF] [facility] bmi 2022-07-26 14:00:00 28.16 kg/m2 [facility] oximetry 2022-07-26 14:00:00 99 % [facility] respiratory rate 2022-07-26 14:00:00 18 /min [facility] blood pressure 2022-07-26 14:00:00 132 mm[Hg] [facility] - systolic [facility] height 2022-07-08 14:00:00 63 [in_i] Common [facility] weight 2022-07-08 14:00:00 161.1 [lb_av] [facility] temperature 2022-07-08 14:00:00 98.2 [degF] [facility] bmi 2022-07-08 14:00:00 28.53 kg/m2 [facility] oximetry 2022-07-08 14:00:00 96 % [facility] respiratory rate 2022-07-08 14:00:00 18 /min [facility] blood pressure 2022-07-08 14:00:00 131 mm[Hg] [facility] blood pressure 2022-07-08 14:00:00 61 mm[Hg] [facility] - diastolic [facility] height 2022-05-20 08:00:00 63 [in_i] [facility] weight 2022-05-20 08:00:00 160 [lb_av] [facility] temperature 2022-05-20 08:00:00 98 [degF] [facility] bmi 2022-05-20 08:00:00 28.34 kg/m2 [facility] blood pressure 2022-05-20 08:00:00 120 mm[Hg] [facility] - systolic [facility] blood pressure 2022-05-20 08:00:00 72 mm[Hg] [facility] - diastolic [facility] height 2022-04-28 14:30:00 63 [in_i] [facility] weight 2022-04-28 14:30:00 157.8 [lb_av] [facility] temperature 2022-04-28 14:30:00 98.0 [degF] Common [facility] bmi 2022-04-28 14:30:00 27.95 kg/m2 [facility] oximetry 2022-04-28 14:30:00 98 % [facility] respiratory rate 2022-04-28 14:30:00 18 /min [facility] blood pressure 2022-04-28 14:30:00 126 mm[Hg] [facility] blood pressure 2022-04-28 14:30:00 79 mm[Hg] [facility] diastolic [facility] height 2022-03-30 14:00:00 63 [in_i] [facility] weight 2022-03-30 14:00:00 156.4 [lb_av] [facility] - [facility] temperature 2022-03-30 14:00:00 98.6 [degF] Common [facility] bmi 2022-03-30 14:00:00 27.7 kg/m2 [facility] oximetry 2022-03-30 14:00:00 98 % [facility] respiratory rate 2022-03-30 14:00:00 16 /min [facility] blood pressure 2022-03-30 14:00:00 120 mm[Hg] [facility] blood pressure 2022-03-30 14:00:00 84 mm[Hg] [facility] - diastolic [facility] height 2022-02-24 07:50:00 63 [in_i] [facility] weight 2022-02-24 07:50:00 164 [lb_av] [facility] temperature 2022-02-24 07:50:00 98 [degF] [facility] bmi 2022-02-24 07:50:00 29.05 kg/m2 [facility] blood pressure 2022-02-24 07:50:00 121 mm[Hg] [facility] - systolic [facility] blood pressure 2022-02-24 07:50:00 75 mm[Hg] [facility] - diastolic [facility] height 2022-01-19 11:00:00 63 [in_i] [facility] weight 2022-01-19 11:00:00 165.8 [lb_av] [facility] temperature 2022-01-19 11:00:00 97.5 [degF] [facility] bmi 2022-01-19 11:00:00 29.37 kg/m2 [facility] oximetry 2022-01-19 11:00:00 100 % [facility] respiratory rate 2022-01-19 11:00:00 17 /min [facility] blood pressure 2022-01-19 11:00:00 111 mm[Hg] [facility] - systolic [facility] blood pressure 2022-01-19 11:00:00 74 mm[Hg] [facility] - diastolic [facility] height 2021-12-22 15:50:00 63 [in_i] [facility] weight 2021-12-22 15:50:00 160 [lb_av] [facility] temperature 2021-12-22 15:50:00 98 [degF] Common [facility] bmi 2021-12-22 15:50:00 28.34 kg/m2 [facility] height 2021-09-22 15:40:00 63 [in_i] [facility] weight 2021-09-22 15:40:00 160 [lb_av] [facility] temperature 2021-09-22 15:40:00 97.4 [degF] [facility] bmi 2021-09-22 15:40:00 28.34 kg/m2 [facility] blood pressure 2021-09-22 15:40:00 125 mm[Hg] [facility] blood pressure 2021-09-22 15:40:00 75 mm[Hg] [facility] - diastolic [facility] height 2021-08-05 08:20:00 63 [in_i] [facility] weight 2021-08-05 08:20:00 174 [lb_av] [facility] bmi 2021-08-05 08:20:00 30.82 kg/m2 [facility] Systolic blood 2021-08-04 19:00:00 125 mm[Hg] [facility] Diastolic blood 2021-08-04 19:00:00 85 mm[Hg] [facility] pressure [facility] Heart rate 2021-08-04 19:00:00 69 /min [facility] Respiratory rate 2021-08-04 19:00:00 16 /min [facility] Oxygen saturation in 2021-08-04 19:00:00 97 /min [facility] [place] [facility] [facility] P[facility] oxim[facility] Body temperature 2021-08-04 17:00:00 36.72 Liya [facility] Body height 2021-08-04 16:09:00 160 cm [facility] Body weight 2021-08-04 16:09:00 72.576 kg [facility] BMI 2021-08-04 16:09:00 28.34 kg/m2 [facility] Systolic blood 2021-05-20 17:04:00 134 mm[Hg] [facility] [place] Diastolic blood 2021-05-20 17:04:00 87 mm[Hg] [facility] Heart rate 2021-05-20 17:04:00 101 /min [facility] Body temperature 2021-05-20 17:04:00 37.11 Liya [facility] Respiratory rate 2021-05-20 17:04:00 18 /min [facility] Body weight 2021-05-20 17:04:00 81.647 kg [facility] BMI 2021-05-20 17:04:00 31.89 kg/m2 [facility] Oxygen saturation in 2021-05-20 17:04:00 98 /min [facility] by [email or web address] [email or web address] P[facility] Systolic blood 2021-01-21 21:10:00 124 mm[Hg] [facility] Diastolic blood 2021-01-21 21:10:00 63 mm[Hg] [facility] Heart rate 2021-01-21 21:10:00 98 /min [facility] Body temperature 2021-01-21 21:10:00 37.78 Liya [facility] Respiratory rate 2021-01-21 21:10:00 20 /min [facility] Oxygen saturation in 2021-01-21 21:10:00 100 /min [facility] blood by [facility] Pulse oximetry Branch Body weight 2021-01-21 18:05:00 81.647 kg [facility] BMI 2021-01-21 18:05:00 31.89 kg/m2 [facility] Systolic blood 2020-10-20 15:50:00 123 mm[Hg] [facility] Diastolic blood 2020-10-20 15:50:00 81 mm[Hg] [facility] Heart rate 2020-10-20 15:50:00 88 /min [facility] Respiratory rate 2020-10-20 15:50:00 18 /min [facility] Oxygen saturation in 2020-10-20 15:50:00 97 /min [facility] by [facility] Pulse oximetry Branch Body temperature 2020-10-20 13:37:00 [...] 99 /min [facility] by [facility] Pulse oximetry Branch Body weight 2020-07-15 21:28:00 [...] 2020-01-03 19:26:00 16 /min [facility] Oxygen saturation in 2020-01-03 19:26:00 98 /min [facility] by [facility] Pulse oximetry Branch Body temperature 2020-01-03 14:01:00 37.22 Liya [facility] Body height 2020-01-03 14:01:00 160 cm [facility] Body weight 2020-01-03 14:01:00 77.111 kg [facility] BMI 2020-01-03 14:01:00 30.11 kg/m2 [facility] Systolic blood 2019-11-29 23:03:00 127 mm[Hg] [facility] Diastolic blood 2019-11-29 23:03:00 96 mm[Hg] [facility] Heart rate 2019-11-29 23:03:00 86 /min [facility] Body temperature 2019-11-29 23:03:00 36.83 Liya [facility] Respiratory rate 2019-11-29 23:03:00 18 /min [facility] Body height 2019-11-29 23:03:00 160 cm [facility] Body weight 2019-11-29 23:03:00 76.658 kg [facility] BMI 2019-11-29 23:03:00 29.94 kg/m2 [facility] Systolic blood 2019-11-15 22:16:00 129 mm[Hg] [facility] Diastolic blood 2019-11-15 22:16:00 86 mm[Hg] [facility] Heart rate 2019-11-15 22:16:00 82 /min [facility] Body temperature 2019-11-15 22:16:00 36.78 [facility] Respiratory rate 2019-11-15 22:16:00 18 /min Univ [facility] Body height 2019-11-15 22:16:00 160.7 cm [facility] Body weight 2019-11-15 22:16:00 77.111 kg [facility] BMI 2019-11-15 22:16:00 29.88 kg/m2 [facility] Systolic blood 2019-06-07 15:13:00 110 mm[Hg] Univer sity [facility] Diastolic blood 2019-06-07 15:13:00 72 mm[Hg] Unive rsity of [facility] Heart rate 2019-06-07 15:13:00 77 /min [facility] Body temperature 2019-06-07 15:13:00 36.83 Liya [facility] Respiratory rate 2019-06-07 15:13:00 20 /min [facility] Body height 2019-06-07 15:13:00 160 cm [facility] Body weight 2019-06-07 15:13:[address] [facility] BMI 2019-06-07 15:13:00 26.36 kg/m2 Universi ty [facility] Procedures Procedure Date / Time Performing Clinician Source Performed CT ABDOMEN PELVIS W 2021-08-04 16:53:22 [facility] LIPASE 2021-08-04 16:37:00 Armond Moore [facility] COMP. METABOLIC PANEL 2021-08-04 16:37:00 Armond Moore [facility] ([id number]) [facility] CBC WITH DIFF 2021-08-04 16:37:00 Singer Armond [facility] URINALYSIS 2021-08-04 16:37:00 Armond Moore o f [facility] CONSENT/REFUSAL FOR 2021-08-04 15:58:11 Doctor Unassigned, No [facility] [place] DI[facility]NOS[facility] AND TREATMENT Name [facility] CT KNEE RIGHT WO 2021-05-20 19:15:50 Blaine Perez [facility] CONTRAST [facility] Branch XR KNEE 3 VW RIGHT 2021-05-20 17:34:16 Sandee Guillen [facility] NOTICE OF PRIVACY 2021-05-20 17:00:21 Doctor Unassigned, No [facility] PRACTICES Name Medical Branch CONSENT/REFUSAL FOR 2021-05-20 17:00:06 Doctor Unassigned, No [facility] [place] DIAGNOSIS AND TREATMENT Name [facility] URINALYSIS 2021-01-21 20:55:00 [facility] BASIC METABOLIC PANEL 2021-01-21 19:37:00 Sandee Guillen [facility] (NA, K, CL, CO2, Medical Branch GLUCOSE, BUN, CREATININE, CA) CBC WITH DIFF 2021-01-21 19:37:00 [facility] XR CHEST 1 VW 2021-01-21 18:33:12 [facility] COVID-19 (ID NOW RAPID 2021-01-21 18:09:00 Sandee Guillen Un [facility] TESTING) Medical Branch CONSENT/REFUSAL FOR 2021-01-21 17:52:09 Doctor Unassigned, No [facility] Name [facility] CT ANGIOGRAM NECK 2020-10-20 14:59:45 Aris Hill [facility] POCT TEST 2020-10-20 14:00:00 Aris Hill [facility] HEPATIC FUNCTION PANEL 2020-10-20 13:57:00 Aris Hill [facility] ([id number]) (ALB,T.PRO,BILI Medical Branch T,BU/BC,ALT,AST,ALK PHOS) BASIC METABOLIC PANEL 2020-10-20 13:57:00 Aris Hill [facility] (NA, K, CL, CO2, Medical Branch GLUCOSE, BUN, CREATININE, CA) CBC WITH DIFF 2020-10-20 13:57:00 Aris Hill [place] o f [facility] PROTHROMBIN TIME / INR 2020-10-20 13:57:00 Aris Hill [facility] ACTIVATED PARTIAL 2020-10-20 13:57:00 Aris Hill [facility] THRMPLAS [facility] NOTICE OF PRIVACY 2020-10-20 13:42:58 Doctor Unassigned, No [facility] CONSENT/REFUSAL FOR 2020-10-20 13:34:05 Doctor Unassigned, No [facility] Name [facility] RAPID STREP SCREEN FOR 2020-07-15 21:57:00 Clarence Weiss [facility] GROUP A [facility] NOTICE OF PRIVACY 2020-07-15 21:13:13 Doctor Unassigned, No [facility] CONSENT/REFUSAL FOR 2020-07-15 21:12:59 Doctor Unassigned, No [facility]REATMENT Name [facility] LAPAROSCOPIC TOTAL 2020-01-03 14:57:00 Sondra Chavira [facility] ABDOMINAL HYSTERECTOMY [facility] ranch CYSTOSCOPY 2020-01-03 14:57:00 Sondra Chavira [facility] SALPINGECTOMY 2020-01-03 14:57:00 Sondra Chavira [facility] BASIC METABOLIC PANEL 2020-01-03 14:28:00 Brent [facility] (NA, K, CL, CO2, Medical Branch GLUCOSE, BUN, CREATININE, CA) CBC WITH DIFFERENTIAL 2020-01-03 14:28:00 Brent [facility] HB ABO GROUPING 2020-01-03 14:24:00 Brent [facility] o [facility] POCT TEST 2020-01-03 14:00:00 Keith Oliva [facility] DAY SURGERY - ADC 2020-01-03 05:01:00 Doctor Unassigned, No [facility] ASSIGNMENT OF BENEFITS 2019-11-15 23:27:34 Doctor Unassigned, No [facility] POCT TEST 2019-11-15 00:00:00 Sondra Chavira Univ [facility] Encounters Start End Encounter Admission Attending Care Care Encounter Source Date/Time Date/Time Type Type Clinicians Facility Department ID 2022-08-22 Outpatient Smart, STLMLC STLMLC [id number] Common 13:19:00 Severino [id number] [facility] 2022-05-18 Outpatient Smart, STLMLC STLMLC [id number] Common 11:08:00 Severino [facility] 2022-05-06 Outpatient Smart, STLMLC STLMLC [id number] Common 09:31:00 Severino [id number] [facility] 2022-01-20 Outpatient Smart, STLMLC STLMLC [id number] Common 08:29:00 Severino [facility] 2021-11-17 Outpatient Smart, STLMLC STLMLC [id number] Common 14:19:29 Severino [id number] [facility] 2021-11-17 Outpatient Smart, STLMLC STLMLC [id number] Common 13:45:03 Severino [id number] [facility] 2021-11-17 Outpatient Smart, STLMLC STLMLC [id number] Common 12:23:40 Severino [id number] [facility] 2021-11-17 Outpatient Smart, STLMLC STLMLC [id number] Common 12:08:39 Severino [id number] [facility] 2021-11-17 Outpatient Smart, STLMLC STLMLC [id number] Common 11:29:40 Severino [id number] [facility] 2021-11-17 Outpatient Smart, STLMLC STLMLC [id number] Common 11:24:43 Severino [id number] [facility] 2021-11-17 Outpatient Smart, STLMLC STLMLC [id number] Common 11:24:07 Severino [id number] [facility] 2021-08-24 Emergency [facility] [id number] Univers 06:27:16 [facility] 2021-08-23 Emergency [facility] [id number] Univers 11:45:25 [facility] 2021-08-21 Emergency [facility] [id number] Univers 13:31:[address] [facility] 2021-08-20 Emergency [facility] [id number] Univers 19:06:29 [facility] 2021-08-19 Inpatient R SONDRA CHAVIRA [facility] FABRIZIO [id number] Univers 12:19:52 CAROLANNSONDRA ROGERS [facility] 2022-08-30 2022-08-30 (TEL) STLMLC STLMLC [id number] Co mmon 00:00:00 00:00:00 [facility] 2022-08-24 2022-08-24 OFFICE STLMLC STLMLC [id number] Co mmon 00:00:00 00:00:00 VISIT [facility] PT - CHI LEVEL 4 [facility] 2022-08-16 2022-08-16 (TEL) STLMLC STLMLC [id number] Co mmon 00:00:00 00:00:00 [facility] 2022-08-16 2022-08-16 OFFICE STLMLC STLMLC [id number] Co mmon 00:00:00 00:00:00 VISIT EST Spir it PT LEVEL 3 - CHI [facility] 2022-07-26 2022-07-26 OFFICE STLMLC STLMLC [id number] Co mmon 00:00:00 00:00:00 VISIT EST Spir it PT LEVEL 3 - CHI [facility] 2022-07-25 2022-07-25 (TEL) STLMLC STLMLC [id number] Co mmon 00:00:00 00:00:00 [facility] 2022-07-08 2022-07-08 (TEL) STLMLC STLMLC [id number] Co mmon 00:00:00 00:00:00 [facility] 2022-07-08 2022-07-08 OFFICE STLMLC STLMLC [id number] Co mmon 00:00:00 00:00:00 VISIT [facility] PT - CHI LEVEL 2 [facility] 2022-06-22 2022-06-22 (TEL) STLMLC STLMLC [id number] Co mmon 00:00:00 00:00:00 [facility] 2022-05-30 2022-05-30 (TEL) STLMLC STLMLC [id number] Co mmon 00:00:00 00:00:00 [facility] 2022-05-20 2022-05-20 OFFICE STLMLC STLMLC [id number] Co mmon 00:00:00 00:00:00 VISIT [facility] PT - CHI LEVEL 4 [facility] 2022-04-28 2022-04-28 PREV VISIT STLMLC STLMLC [id number] Common 00:00:00 00:00:00 EST AGE [facility] 18-39 - [facility] 2022-04-28 2022-04-28 (TEL) STLMLC STLMLC [id number] Co mmon 00:00:00 00:00:00 [facility] 2022-03-30 2022-03-30 (TEL) STLMLC STLMLC [id number] Co mmon 00:00:00 00:00:00 [facility] 2022-03-30 2022-03-30 OFFICE STLMLC STLMLC [id number] Co mmon 00:00:00 00:00:00 VISIT [facility] PT - CHI LEVEL 4 [facility] 2022-03-29 2022-03-29 (TEL) STLMLC STLMLC [id number] Co mmon 00:00:00 00:00:00 [facility] 2022-02-24 2022-02-24 OFFICE STLMLC STLMLC [id number] Co mmon 00:00:00 00:00:00 VISIT [facility] PT - CHI LEVEL 4 [facility] 2022-01-26 2022-01-26 (TEL) STLMLC STLMLC [id number] Co mmon 00:00:00 00:00:00 [facility] 2022-01-20 2022-01-20 (TEL) STLMLC STLMLC [id number] Co mmon 00:00:00 00:00:00 [facility] 2022-01-20 2022-01-20 (TEL) STLMLC STLMLC [id number] Co mmon 00:00:00 00:00:00 [facility] 2022-01-19 2022-01-19 (TEL) STLMLC STLMLC [id number] Co mmon 00:00:00 00:00:00 [facility] 2022-01-19 2022-01-19 OFFICE STLMLC STLMLC [id number] Co mmon 00:00:00 00:00:00 VISIT EST Spir it PT LEVEL 3 - [facility] 2021-12-23 2021-12-23 (TEL) STLMLC STLMLC [id number] Co mmon 00:00:00 00:00:00 [facility] 2021-12-23 2021-12-23 (TEL) STLMLC STLMLC [id number] Co mmon 00:00:00 00:00:00 [facility] 2021-12-22 2021-12-22 OFFICE STLMLC STLMLC [id number] Co mmon 00:00:00 00:00:00 VISIT [facility] ESTAB PT - CHI LEVEL 4 [facility] 2021-12-22 2021-12-22 (TEL) STLMLC STLMLC [id number] Co mmon 00:00:00 00:00:00 [facility] 2021-11-03 2021-11-03 (TEL) STLMLC STLMLC [id number] Co mmon 00:00:00 00:00:00 [facility] 2021-11-02 2021-11-02 (TEL) STLMLC STLMLC [id number] Co mmon 00:00:00 00:00:00 [facility] 2021-09-22 2021-09-22 OFFICE STLMLC STLMLC [id number] Co mmon 00:00:00 00:00:00 VISIT [facility] ESTAB PT - CHI LEVEL 4 [facility] 2021-08-05 2021-08-05 OFFICE STLMLC STLMLC [id number] Co mmon 00:00:00 00:00:00 VISIT EST Spir it PT LEVEL 3 - [facility] 2021-08-05 2021-08-05 (TEL) STLMLC STLMLC [id number] Co mmon 00:00:00 00:00:00 [facility] 2021-08-04 2021-08-04 Emergency Moore [facility] [id number] Univers 11:11:00 14:06:00 Armond Collazo [id number] i ty of [place] [id number] [facility] [id number] [facility] 084 Branch 2021-08-04 2021-08-04 (TEL) STLMLC STLMLC [id number] Co mmon 00:00:00 00:00:00 [facility] 2021-08-03 2021-08-03 (TEL) STLMLC STLMLC [id number] Co mmon 00:00:00 00:00:00 [facility] 2021-06-23 2021-06-23 Outpatient STLMLC STLMLC [id number] Common 00:00:00 00:00:00 [facility] 2021-06-08 2021-06-08 Outpatient STLMLC STLMLC [id number] Common 00:00:00 00:00:00 [facility] 2021-06-07 2021-06-07 Outpatient STLMLC STLMLC [id number] Common 00:00:00 00:00:00 [facility] 2021-06-03 2021-06-03 Outpatient STLMLC STLMLC [id number] Common 00:00:00 00:00:00 [facility] 2021-05-31 2021-05-31 Outpatient STLMLC STLMLC [id number] Common 00:00:00 00:00:00 [facility] 2021-05-31 2021-05-31 Outpatient STLMLC STLMLC [id number] Common 00:00:00 00:00:00 [facility] 2021-05-20 2021-05-20 Emergency Blaine Perez [facility] 1.2.840.114 [id number] Univers 12:07:00 16:13:00 Sydni Collazo [id number] i ty of [place] [id number] [facility] [id number] [facility] 084 Branch 2021-05-20 2021-05-20 Outpatient STLMLC STLMLC [id number] Common 00:00:00 00:00:00 [facility] 2021-05-20 2021-05-20 Orders Doctor PATRICIA 1.2.840.114 [id number] Univers 00:00:00 00:00:00 Only Unassigned, JAZMINE 350.1.13.10 ity of [facility] 4.2.7.2.686 [facility] [id number] [facility] 009 Branch 2021-03-23 2021-03-23 Outpatient STLMLC STLMLC [id number] Common 00:00:00 00:00:00 [facility] 2021-02-25 2021-02-25 Outpatient STLMLC STLMLC [id number] Common 00:00:00 00:00:00 [facility] 2021-02-22 2021-02-22 Outpatient STLMLC STLMLC [id number] Common 00:00:00 00:00:00 [facility] 2021-02-18 2021-02-18 Outpatient STLMLC STLMLC [id number] Common 00:00:00 00:00:00 [facility] 2021-01-27 2021-01-27 Outpatient STLMLC STLMLC [id number] Common 00:00:00 00:00:00 [facility] 2021-01-27 2021-01-27 Outpatient STLMLC STLMLC [id number] Common 00:00:00 00:00:00 [facility] 2021-01-21 2021-01-21 Emergency JONATHAN Guillen 1.2.840.114 [id number] Univers 13:11:00 16:40:00 Sandee Collazo [id number] ity of [place] [id number] [facility] [id number] [facility] 084 Branch 2021-01-21 2021-01-21 Emergency X KRISHNA GUILLENMB ERT [id number] Univers 13:11:00 16:40:00 SANDEE serrato of [facility] 2021-01-20 2021-01-20 Outpatient STLMLC STLMLC [id number] Common 00:00:00 00:00:00 [facility] 2021-01-20 2021-01-20 Outpatient STLMLC STLMLC [id number] Common 00:00:00 00:00:00 [facility] 2021-01-11 2021-01-11 Patient [facility] 1.2.840.114 [id number] Univers 00:00:00 00:00:00 Outreach Tim GILLETTE 350.1.13.10 i ty of [facility] 4.2.7.2.686 [facility] [id number] [facility] 388 Branch 2020-12-21 2020-12-21 Outpatient STLMLC STLMLC [id number] Common 00:00:00 00:00:00 [facility] 2020-11-12 2020-11-12 Outpatient STLMLC STLMLC [id number] Common 00:00:00 00:00:00 [facility] 2020-11-12 2020-11-12 Outpatient STLMLC STLMLC [id number] Common 00:00:00 00:00:00 [facility] 2020-10-26 2020-10-26 Outpatient STLMLC STLMLC [id number] Common 00:00:00 00:00:00 [facility] 2020-10-20 2020-10-20 [facility] [id number] Univers 07:39:00 09:57:00 Aris Collazo [id number] i ty of [place] [id number] [facility] [id number] [facility] 084 Branch 2020-10-14 2020-10-14 Outpatient STLMLC STLMLC [id number] Common 00:00:00 00:00:00 [facility] 2020-10-06 2020-10-06 Outpatient STLMLC STLMLC [id number] Common 00:00:00 00:00:00 [facility] 2020-10-01 2020-10-01 Outpatient STLMLC STLMLC [id number] Common 00:00:00 00:00:00 [facility] 2020-09-21 2020-09-21 Outpatient STLMLC STLMLC [id number] Common 00:00:00 00:00:00 [facility] 2020-08-05 2020-08-05 Outpatient STLMLC STLMLC [id number] Common 00:00:00 00:00:00 [facility] 2020-08-04 2020-08-04 Outpatient STLMLC STLMLC [id number] Common 00:00:00 00:00:00 [facility] 2020-07-16 2020-07-16 Li Roe 1.2.840.114 [id number] Univers 00:00:00 00:00:00 (Out) JAZMINE [id number] it y [facility] [id number] Jose [id number] [facility] 019 Branch 2020-07-15 2020-07-15 Emergency [place], [facility] 1.2.840.114 [id number] Univers 16:40:00 18:23:00 Clarence Collazo [id number] i ty [facility] 4.2.7.2.686 [facility] [id number] [facility] 084 Branch 2020-07-15 2020-07-15 Outpatient STLMLC STLMLC [id number] Common 00:00:00 00:00:00 [facility] 2020-07-15 2020-07-15 Outpatient STLMLC STLMLC [id number] Common 00:00:00 00:00:00 [facility] 2020-07-09 2020-07-09 [facility] [id number] Common 08:20:00 08:20:[address] [facility] 2020-06-23 2020-06-23 [facility] [id number] Common 13:38:00 13:38:[address] [facility] 2020-06-08 2020-06-08 [facility] [id number] Common 16:00:00 16:00:[address] [facility] 2020-06-02 2020-06-02 [facility] [id number] Common 16:31:00 16:31:[address] [facility] 2020-06-02 2020-06-02 [facility] [id number] Common 08:30:00 08:30:[address] [facility] 2020-06-01 2020-06-01 Outpatient [facility] [id number] Common 10:46:00 10:46:00 [facility] 2020-04-27 2020-04-27 [facility] [id number] Common 13:00:00 13:00:[address] [facility] 2020-03-25 2020-03-25 Outpatient [facility] [id number] Common 16:45:00 16:45:[address] [facility] 2020-02-26 2020-02-26 [facility] [id number] Common 14:15:00 14:15:[address] [facility] 2020-01-29 2020-01-29 Telephone Adum, [facility] [id number] Univers 00:00:00 00:00:00 Alyssa Collazo [id number] ity of [place] 4.2.7.2.686 Ally Farfan [id number] [address] 2020-01-29 2020-01-29 Refill Doctor [facility] 1.2.840.114 [id number] Univers 00:00:00 00:00:00 UnassignedZay 350.1.13.10 ity of [place] [phone] [place] dical [place] [address] [place] [address] 2020-01-29 2020-01-29 Patient Doctor [facility] 1.2.840.114 [id number] Univers 00:00:00 00:00:00 Secure Msg Unassigned, [place] [id number] ity [place] 4[place]2.7.2.[place] [phone] Ok dical nal [address] [place] [address] 2020-01-29 2020-01-29 Patient Doctor [facility] 1.2.840.114 [id number] Univers 00:00:00 00:00:00 Secure Msg Unassigned, [place] [id number] ity [place] 4[place]2.7.2.[place] [phone] Ok dical nal [address] [place] [address] 2020-01-29 2020-01-29 Patient Doctor [place] 1.2.840.114 [id number] Univers 00:00:00 00:00:00 Secure Msg Unassigned, [place] 350.1.13.10 ity of [place] 4[place]2.7.2.[place] [phone] Ok dical nal [address] [place] [address] 2020-01-29 2020-01-29 Patient Doctor [place] 1.2.840.114 [id number] Univers 00:00:00 00:00:00 Secure Msg Unassigned, [place] 350.1.13.10 ity of [place] 4[place]2.7.2.[place] [id number] Ok dical nal [address] [place] [address] 2020-01-17 2020-01-17 Telemedici Cait [facility] 1.2.840.114 [id number] Univers 08:20:35 16:41:15 ne Visit Sondra Collazo 350.1.13.10 ity [place] 4[place]2.7.2.686 [place] [phone] Ok dical nal [address] [place] [address] 2020-01-17 2020-01-17 Outpatient R SONDRA CHAVIRA [facility] B [id number] Univers 13:15:00 13:15:[address] [facility] 2020-01-17 2020-01-17 Telephone [facility] 1.2.840.114 [id number] Univers 00:00:00 00:00:00 Sondra Collazo 350.1.13.10 i ty [place].2.[place] [id number] [address] 2020-01-07 2020-01-07 [facility] 1.2.840.114 [id number] Univers 00:00:00 00:00:00 Sondra Collazo 350.1.13.10 i ty [place].2.[place] [id number] [address] 2020-01-06 2020-01-06 [facility] 1.2.840.114 [id number] Univers 00:00:00 00:00:00 Sondra Collazo 350.1.13.10 i ty [place].2.[place] [phone] [address] 2020-01-03 2020-01-03 [facility] 1.2.840.114 [id number] Univers 08:46:00 15:02:00 Encounter Sondra Collazo 350.1.13.10 [place] 4[place]2.686 [place] [id number] [address] 2019-11-29 2020-01-03 [facility] 1.2.840.114 [id number] Univers 15:59:09 14:53:01 Visit Sondra Chatterjeeton 350.1.13.10 i ty [place] 4[place]2.7.2.[place] [phone] [address] 2020-01-03 2020-01-03 Orders Doctor BELEM 1.2.840.114 [id number] Univers 00:00:00 00:00:00 Only Unassigned, JAZMINE 350.1.13.10 ity of [place] [facility] 4.2.7.2.686 Jose as [phone] [address] 2019-12-30 2019-12-30 [facility]phone [facility] 1.2.840.114 [id number] Univers 00:00:00 00:00:00 Sondra Collazo 350.1.13.10 i ty [place].2.[place] [phone] [address] 2019-12-27 2019-12-27 Outpatient R SONDRA CHAVIRA [facility] B [id number] Univers 16:00:00 16:00:00 [facility] 2019-12-10 2019-12-10 Case [facility] 1.2.840.114 [id number] Univers 00:00:00 00:00:00 Management Sondra Collazo 350.1.13.10 it[place].2.[place] [phone] [address] 2019-12-05 2019-12-05 Telephone [facility] 1.2.840.114 [id number] Univers 00:00:00 00:00:00 Sondra Collazo 350.1.13.10 i ty [place].7.2.[place] [phone] [address] 2019-12-02 2019-12-02 [facility] 1.2.840.114 [id number] Univers 00:00:00 00:00:00 Surgery Carmen Collazo 350.1.13.10 i ty [place]2.[place].2.[place] [id number] [address] 2019-12-02 2019-12-02 [facility] 1.2.840.114 [id number] Univers 00:00:00 00:00:00 Sondra Collazo 350.1.13.10 i ty [place].2.[place] [phone] [address] 2019-12-01 2019-12-01 [facility] 1.2.840.114 [id number] Univers 00:00:00 00:00:00 Management Sondra Collazo 350.1.13.10 [place].2.[place] [phone] Ok dical [facility] 134 [facility] 2019-11-29 2019-11-29 Outpatient R SONDRA CHAVIRA [facility] B [id number] Univers 16:00:00 17:56:19 SONDRA CHAVIRA ity of [facility] 2019-11-29 2019-11-29 Orders Doctor BELEM 1.2.840.114 [id number] Univers 00:00:00 00:00:00 Only Unassigned, JAZMINE 350.1.13.10 ity of [place] [facility] 4.2.7.2.686 Jose as [phone] [address] 2019-11-19 2019-11-19 Telephone [facility] 1.2.840.114 [id number] Univers 00:00:00 00:00:00 Sondra Collazo 350.1.13.10 i [place] [phone] [facility] [address] [facility] 2019-11-18 2019-11-18 Telephone [facility] 1.2.840.114 [id number] Univers 00:00:00 00:00:00 Sondra Collazo 350.1.13.10 [place] [phone] [place] dical [facility] [address] [facility] 2019-11-15 2019-11-15 Obiee Architect [facility] 1.2.8 40.114 [id number] Univers 17:30:16 17:45:16 Visit Sondra Chavira 350.1.13. 10 [place] [phone] [facility] [address] [facility] 2019-11-15 2019-11-15 [facility] 1.2.840.114 [id number] Univers 16:00:41 17:19:59 Visit Sondra Collazo 350.1.13.10 i [place] [phone] Ok dical nal 134 [facility] 2019-11-15 2019-11-15 Orders Doctor BELEM 1.2.840.114 [id number] Univers 00:00:00 00:00:00 Only Unassigned, JAZMINE 350.1.13.10 ity of [place] [facility] 4.2.7.2.686 Jose as [phone] [address] 2019-11-12 2019-11-12 Telephone Cait [facility] 1.2.840.114 [id number] [facility] 00:00:00 00:00:00 Sondra Collazo 350.1.13.10 [place] [phone] Ok dical nal 134 [facility] 2019-09-24 2019-09-24 [facility] 27 [id number] Common 08:45:00 08:45:[address] [facility] 2019-08-13 2019-08-13 [facility] 27 [id number] Common 09:15:00 09:15:[address] [facility] 2019-07-24 2019-07-24 [facility] 27 [id number] Common 15:00:00 15:00:[address] [facility] 2019-07-08 2019-07-08 [facility] 27 [id number] Common 10:56:00 10:56:[address] [facility] 2019-06-11 2019-06-11 [facility] 26 [id number] Common 10:15:00 10:15:[address] [facility] 2019-06-07 2019-06-07 Nurse Nurse, [facility] 1.2.840.114 [id number] [facility] 09:59:31 10:24:10 Visit Sondra Chavira 350.1.13. 10 [facility] 4.2.7.2.686 Ally Farfan [phone] Ok dical nal [address] 2019-04-30 2019-04-30 [facility] [id number] Common 13:30:00 13:30:00 t [employer] Sp[employer] [facility] Results Test Description Test Time Test Comments Results Result Comments Source COMP. METABOLIC PANEL (87513) 2021-08-04 17:13:25 Test Item Value Reference Range Interpretation Comme nts NA (test code = 9296016150) 139 mmol/L 135-145 K (test code = 8582393932) 4.2 mmol/L 3.5-5.0 CL (test code = 6963138703) 109 mmol/L 98-108 H CO2 TOTAL (test code = 0419520287) 20 mmol/L 23-31 L AGAP (test code = 8592046747) 2-16 BUN (test code = 6759190591) 10 mg/dL 7-23 GLUCOSE (test code = 0413293019) 100 mg/dL 70-110 CREATININE (test code = 0.57 mg/dL 0.50-1.04 2744947054) TOTAL BILI (test code = 0.4 mg/dL 0.1-1.1 7504295902) CALCIUM (test code = 3875263805) 9.4 mg/dL 8.6-10.6 T PROTEIN (test code = 2521362543) 7.2 g/dL 6.3-8.2 ALBUMIN (test code = 6251739922) 4.5 g/dL 3.5-5.0 ALK PHOS (test code = 9141346693) 76 U/L 34-122 ALTv (test code = 1742-6) 22 U/L 5-35 AST(SGOT) (test code = 8576326033) 26 U/L 13-40 eGFR (test code = 5975379830) mL/min/1.73m2 NAHUM (test code = NAHUM) Association [...] tests). Lab Interpretation (test code = Abnormal 54528-6) [facility] 17:12:44 Test Item Value Reference Range Interpretation Comments LIPASE (test code = 6260325915) 74 U/L 0-220 Lab Interpretation (test code = Normal 28149-5) General acute hospital WITH [id number] 17:00:06 Test Item Value Reference Range Interpretation Comments WBC (test code = See_Comment [Automated 2407-2) message] The sy stem which generated this result transmitted reference range : 4.30 - 11.10 10*3/?L. The reference range was not used to interpret this result as normal/abnormal . RBC (test code = See_Comment [Automated 485-7) message] The sy stem which generated this [...] RDW-SD (test code = 41.0 fL 39.0-49.9 92652-0) RDW-CV (test code = 12.2 % 12.0-15.5 788-0) PLT (test code = See_Comment H [Automated 777-3) message] The sy stem which generated this result transmitted reference range : 166 - 358 10*3/ ?L. The reference r shahbaz was not used to interpret this result as normal/abnormal . MPV (test code = 10.0 fL 9.5-12.9 79339-2) NRBC/100 WBC (test See_Comment [Automat ed code = 8077809372) message] The system which generated this result transmitted reference range : 0.0 - 10.0 /100 WBCs. The refer ence range was not u sed to interpret th is result as normal/abnormal . NRBC x10^3 (test code <0.01 See_Comment [Auto mated = 9737846908) message] The s ystem which generated this result transmitted reference range : 10*3/?L. The reference range was not used to interpret this result as normal/abnormal . GRAN MAT (NEUT) % 57.4 % (test code = 770-8) IMM GRAN % (test code 0.30 % = 1769095988) LYMPH % (test code = 34.0 % 736-9) MONO % (test code = 5.5 % 5905-5) EOS % (test code = 1.9 % 713-8) BASO % (test code = 0.9 % 706-2) GRAN MAT x10^3(ANC) 6.05 10*3/uL 1.88-7.09 (test code = 0750060941) IMM GRAN x10^3 (test 0.03 10*3/uL 0.00-0.06 code = 3907370005) LYMPH x10^3 (test code 3.59 10*3/uL 1.32-3.29 H = 731-0) MONO x10^3 (test code 0.58 10*3/uL 0.33-0.92 = 742-7) EOS x10^3 (test code = 0.20 10*3/uL 0.03-0.39 711-2) BASO x10^3 (test code 0.10 10*3/uL 0.01-0.07 H = 704-7) Lab Interpretation Abnormal (test code = 02914-0) [facility] WO [id number] 19:58:17 No evidence of fracture or traumatic malalignment. No joint effusion. RL: 4400 End of report Ordering physician:Blanie PEREZ CLINICAL HISTORY: Right knee pain. Possible fracture. TECHNIQUE: ?Helical CT images of the right knee were obtained withoutcontrast. Axial, sagittal and coronal reconstructions were performed. ALARA(As Low As Reasonably Achievable) ?principles was used during thisexamination. COMPARISON: ? Radiographs earlier today FINDINGS: No acute fracture. Bony alignment is maintained. Visualized joints appearpreserved. No joint effusion. Musculature is within normal limits. Nosignificant soft tissue swelling. [facility], Radiant Results Inft User - 05/20/2021 2:59 [...] is within normal limits. Nosignificant soft tissue swelling.IMPRESSIONNo evidence of fracture or traumatic malalignment.No joint effusion.RL: 4400End of report [facility] 3 VW [id number] 17:44:46 Questionable lateral tibial plateau fracture with knee joint effusion.Findings may be further characterized with a CT scan of the knee. Osteoarthrosis. EXAM: XR KNEE 3 VW RIGHT HISTORY: fall and rightknee pain COMPARISON: None FINDINGS: Imaging of the knee demonstrates mild tricompartmental marginalosteophyteswith mild medial compartment joint space narrowing. There is a moderatesized effusion. Focal cortical irregularity projects over the anteriorarticular margin of the lateral tibial plateau onthe lateral view. [facility], Radiant Results Inft User - 05/20/2021 12:45 PM CDT EXAM:XR KNEE 3 VW RIGHTHISTORY:fall and right knee [...] characterized with a CT scan of the knee.Osteoarthrosis.[facility]inal[facility] 2021-01-21 21:26:51 Test Item Value Reference Range Interpretation Comments APPEARANCE (test code = Hazy Clear A 8996741658) COLOR (test code = Yellow Yellow 3353128461) PH (test code = 4.8-8.0 2099164825) SP GRAVITY (test code = 1.003-1.030 6237870538) GLU U QUAL (test code = Normal Normal 1164005537) BLOOD (test code = 2+ Negative A 4463755621) KETONES (test code = 5 mg/dL Negative A 6505579171) PROTEIN (test code = Negative Negative 2887-8) UROBILIN (test code = Normal Normal 8561991433) BILIRUBIN (test code = Negative Negative 6324036665) NITRITE (test code = Negative Negative 2608583592) LEUK CHRIS (test code = Negative Negative 9133669222) RBC/HPF (test code = See_Comment H [Autom ated message] 7937017117) The system [employer] generated this result transmitted ref erence range: 0 - 3 HP F. The reference range was not used to int erpret this result as normal/abnormal . WBC/HPF (test code = See_Comment [Autom ated message] 0473158297) The system [employer] generated this result transmitted ref erence range: 0 - 5 HP F. The reference range was not used to int erpret this result as normal/abnormal . BACTERIA (test code = Few Negative A 8410229388) MUCOUS (test code = Moderate Negative LPF A 2909313916) SQ EPITH (test code = HPF 9882402284) Lab Interpretation (test Abnormal code = 83778-0) [facility] Metabolic Panel (NA, K, CL, CO2, GLUCOSE, BUN, CREATININE, CA)2021-01-21 20:06:25 Test Item Value Reference Range Interpretation Comments NA (test code = 139 mmol/L 135-145 9935060878) K (test code = 3.9 mmol/L 3.5-5.0 5206070381) CL (test code = 105 mmol/L 98-108 8262339495) CO2 TOTAL (test code 25 mmol/L 23-31 = 2247352939) AGAP (test code = 2-16 2927839535) BUN (test code = 14 mg/dL 7-23 4625741722) GLUCOSE (test code = 96 mg/dL 70-110 0790268755) CREATININE (test code 0.69 mg/dL 0.50-1.04 = 5061545881) CALCIUM (test code = 9.4 mg/dL 8.6-10.6 5748006433) eGFR (test code = mL/min/1.73m2 1622612676) NAHUM (test code = NAHUM) Association of [...] or urine or abnormalities in imaging tests). General acute hospital with Nipdpawvrxyz2414-67-77 19:53:28 Test Item Value Reference Range Interpretation [...] RDW-SD (test code = 39.5 fL 39.0-49.9 87990-9) RDW-CV (test code = 12.1 % 12.0-15.5 788-0) PLT (test code = See_Comment H [Automated 777-3) message] The sy stem which generated this result transmitted reference range : 166 - 358 10*3/ ?L. The reference r shahbaz was not used to interpret this result as normal/abnormal . MPV (test code = 9.3 fL 9.5-12.9 L 16169-3) NRBC/100 WBC (test See_Comment [Automat ed code = 7399556303) message] The system which generated this result transmitted reference range : 0.0 - 10.0 /100 WBCs. The refer ence range was not u sed to interpret th is result as normal/abnormal . NRBC x10^3 (test code <0.01 See_Comment [Auto mated = 4205070596) message] The s ystem which generated this result transmitted reference range : 10*3/?L. The reference range was not used to interpret this result as normal/abnormal . GRAN MAT (NEUT) % 80.9 % (test code = 770-8) IMM GRAN % (test code 0.30 % = 2141611284) LYMPH % (test code = 10.6 % 736-9) MONO % (test code = 6.5 % 5905-5) EOS % (test code = 0.9 % 713-8) BASO % (test code = 0.8 % 706-2) GRAN MAT x10^3(ANC) 9.40 10*3/uL 1.88-7.09 H (test code = 8618671610) IMM GRAN x10^3 (test 0.04 10*3/uL 0.00-0.06 code = 9977037172) LYMPH x10^3 (test code 1.23 10*3/uL 1.32-3.29 L = 731-0) MONO x10^3 (test code 0.76 10*3/uL 0.33-0.92 = 742-7) EOS x10^3 (test code = 0.11 10*3/uL 0.03-0.39 711-2) BASO x10^3 (test code 0.09 10*3/uL 0.01-0.07 H = 704-7) Lab Interpretation Abnormal (test code = 87199-7) [facility] (ID NOW RAPID TESTING)2021-01-21 19:10:38 Test Item Value Reference Range Interpretation Comments SARS-CoV-2 Rapid ID NOW Not Detected Not Detected (test code = 72354-7) NAHUM (test code = NAHUM) ID NOW COVID-19 Assay is an isothermal nucleic acid amplification test intended for the qualitative detection of nucleic acid from SARS-CoV-2 viral RNA in nasopharyngeal (CLINICAL COURIER) specimens. It is used under Emergency Use [...] indicated. Lab Interpretation Normal (test code = 91510-0) [facility]XR CHEST 1 [id number] 18:35:43HISTORY: Cough and SOB. FINDINGS: ?AP view of the chest showed normal appearance of thecardiomediastinal silhouette. No acute pneumonia, pleural effusion,pulmonary congestion detected. Old fracture deformity of mid right claviclenoted. CONCLUSIONS: No acute cardiopulmonary disease. [facility], Radiant Results Inft User - 01/21/2021 1:36 PM CDTHISTORY: Cough and SOB.FINDINGS: AP view of the chest showed normal appearance of thecardiomediastinal silhouette. No acute pneumonia, pleural effusion,pulmonary congestion detected. Old fracture deformity of mid right claviclenoted.CONCLUSIONS: No acute cardiopulmonary disease.[facility]CT ANGIOGRAM [id number] 15:41:[address] neckCT ANGIOGRAM NECK HISTORY: Female 35 years Aneurysm, neck vessel(s) COMPARISON: None TECHNIQUE: Routine CTA neck following administration of 100 mL IV Omnipaque FINDINGS: Classic 3 vessel aortic arch branching anatomy. The arch vessel origins arewidely patent. The innominate and subclavian arteries are widely patent. The common carotid arteries, carotid bulbs and cervical internal carot idarteries are widely patent. The vertebral arteries are widely patent from their subclavian originsthrough the vertebrobasilar junction. [facility], Radiant Results Inft User - 10/20/2020 9:42 [...] patent from their subclavian originsthrough the vertebrobasilar junction.IMPRESSIONNormal CT neckUnMetropolitan Methodist HospitalaPTT2020-12-29 15:07:00 Test Item Value Reference Range Interpretation Comments APTT Patient (test See_Comment [Automat ed code = 3173-2) message] The system which generated this result transmitted reference range : 23 - 38 Seconds . The reference range was not used to interpr et this result as normal/abnormal . NAHUM (test code = NAHUM) The [facility] patient population mean normal value for aPTT is 30 seconds. Lab Interpretation Normal (test code = 82176-6) [facility] CampusProthrombin Time (PT) / [id number] 15:05:00 Test Item Value Reference Range Interpretation Comments PROTIME PATIENT (test See_Comment [Auto mated message] code = 5964-2) The system wh ich generated this result transmitted ref erence range: 12.0 - 1 4.7 Seconds. The re ference range was not u sed to interpret this result as normal/abnor mal. INR (test code = 6301-6) Nor mal INR <1.1; Warfarin Therap eutic range 2.0 to 3. 0 or 2.5 to 3.5, dep ending upon the indica tions. Lab Interpretation (test Normal code = 87735-9) [facility] Metabolic Panel (NA, K, CL, CO2, GLUCOSE, BUN, CREATININE, CA)2020-10-20 14:21:00 Test Item Value Reference Range Interpretation Comments NA (test code = 140 mmol/L 135-145 9700578949) K (test code = 3.8 mmol/L 3.5-5 4950003857) CL (test code = 106 mmol/L 98-108 5523995354) CO2 TOTAL (test code = 25 mmol/L 23-31 3583205917) AGAP (test code = 2-16 1623480373) BUN (test code = 15 mg/dL 7-23 7036913399) GLUCOSE (test code = 108 mg/dL 70-110 1066918940) CREATININE (test code 0.65 mg/dL 0.5-1.04 = 1189029272) CALCIUM (test code = 9.2 mg/dL 8.6-10.6 0738010640) eGFR Calculation mL/min/1.73m2 (Non-) (test code = 7184416254) eGFR Calculation mL/min/1.73m2 () (test code = 5134996654) NAHUM (test code = NAHUM) Association of [...] or urine or abnormalities in imaging tests). [facility] Function Panel (ALB, T.PRO, BILI T, BU/BC, ALT, AST, ALK PHOS)2020-10-20 14:20:00 Test Item Value Reference Range Interpretation Comments TOTAL BILI (test code = 6682594175) 0.4 mg/dL 0.1-1.1 BILI UNCON (test code = 5659808401) 0.3 mg/dL 0.1-1.1 BILI CONJ (test code = 3390182029) 0.0 mg/dL 0-0.3 T PROTEIN (test code = 7467477218) 7.3 g/dL 6.3-8.2 ALBUMIN (test code = 6600427341) 4.2 g/dL 3.5-5 ALK PHOS (test code = 4721454240) 96 U/L 34-122 ALTv (test code = 1742-6) 21 U/L 5-35 AST(SGOT) (test code = 3286434872) 23 U/L 13-40 Lab Interpretation (test code = Normal 65400-3) General acute hospital with [id number] 14:08:00 Test Item Value Reference Range Interpretation Comments WBC (test code = See_Comment [Automated 1190-2) message] The sy stem which generated this result transmitted reference range : 4.30 - 11.10 10*3/?L. The reference range was not used to interpret this result as normal/abnormal . RBC (test code = See_Comment [Automated 694-8) message] The sy stem which generated this [...] RDW-SD (test code = 41.2 fL 39-49.9 26871-1) RDW-CV (test code = 12.3 % 12-15.5 788-0) PLT (test code = See_Comment H [Automated 177-3) message] The sy stem which generated this result transmitted reference range : 166 - 358 10*3/ ?L. The reference r shahbaz was not used to interpret this result as normal/abnormal . MPV (test code = 9.2 fL 9.5-12.9 L 25989-6) NRBC/100 WBC (test See_Comment [Automat ed code = 5145494780) message] The system which generated this result transmitted reference range : 0.0 - 10.0 /100 WBCs. The refer ence range was not u sed to interpret th is result as normal/abnormal . NRBC x10^3 (test code <0.01 See_Comment [Auto mated = 4888132417) message] The s ystem which generated this result transmitted reference range : 10*3/?L. The reference range was not used to interpret this result as normal/abnormal . GRAN MAT (NEUT) % 51.8 % (test code = 770-8) IMM GRAN % (test code 0.30 % = 6422361018) LYMPH % (test code = 36.1 % 736-9) MONO % (test code = 7.0 % 5905-5) EOS % (test code = 3.8 % 713-8) BASO % (test code = 1.0 % 706-2) GRAN MAT x10^3(ANC) 4.85 10*3/uL 1.88-7.09 (test code = 8711896276) IMM GRAN x10^3 (test 0.03 10*3/uL 0-0.06 code = 7851007319) LYMPH x10^3 (test code 3.39 10*3/uL 1.32-3.29 H = 731-0) MONO x10^3 (test code 0.66 10*3/uL 0.33-0.92 = 742-7) EOS x10^3 (test code = 0.36 10*3/uL 0.03-0.39 711-2) BASO x10^3 (test code 0.09 10*3/uL 0.01-0.07 H = 704-7) Lab Interpretation Abnormal (test code = 43820-8) [facility] [id number] 14:00:00 Test Item Value Reference Range Interpretation Comments POCT PREG (test code = 1605) negative On board controls acceptable with present C Line (test code = 3574) POCT PREG LOT # (test code = 3575) [id number] POCT PREG TEST DATE (test 2022-02-19 code = 3576) Lab Interpretation (test code = Normal 73476-4) [facility] GROUP [id number] 22:32:00 Test Item Value Reference Range Interpretation Comments Streptococcus pyogenes (group A) Negative Negative antigen (test code = 63864-6) Lab Interpretation (test code = Normal 78855-1) [facility] CampusType and Screen - The Type and Screen expires at midnight on the 3rd day after it was drawn. A current Type and Screen is required when RBCs are requested. For all other blood products, a Type and Scree n performed during the current hospitalizati...2020-01-03 15:17:39 Test Item Value Reference Range Interpretation Comments ABO & RH (test code A Positive Performe d at [facility] = 20) Laboratory [facility] [address] [place], [place] [address]Toll Free: [phone] A No. [id number] IAT (test code = Negative Performed a t [facility] 1185) Laboratory [facility] [address] [place], [place] [address]Toll Free: [phone] A No. [id number] [facility] (NA, K, CL, CO2, GLUCOSE, BUN, CREATININE, CA)2020-01-03 15:12:00 Test Item Value Reference Range Interpretation Comments NA (test code = 140 mmol/L 135-145 2441608437) K (test code = 3.8 mmol/L 3.5-5 7354677169) CL (test code = 111 mmol/L 98-108 H 1378480143) CO2 TOTAL (test code = 22 mmol/L 23-31 L 9763880568) AGAP (test code = 2-16 6655145983) BUN (test code = 15 mg/dL 7-23 2669800536) GLUCOSE (test code = 110 mg/dL 70-110 7999534656) CREATININE (test code = 0.60 mg/dL 0.5-1.04 9194314247) CALCIUM (test code = 8.8 mg/dL 8.6-10.6 6803096046) eGFR Calculation mL/min/1.73m2 (Non-) (test code = 1990056888) eGFR Calculation mL/min/1.73m2 () (test code = 9763933367) NAHUM (test code = NAHUM) Association of [...] tests). Lab Interpretation Abnormal (test code = 59539-5) General acute hospital WITH [id number] 14:41:00 Test Item Value Reference Range Interpretation Comments WBC (test code = See_Comment [Automated 9395-2) message] The sy stem which generated this result transmitted reference range : 4.30 - 11.10 10*3/?L. The reference range was not used to interpret this result as normal/abnormal . RBC (test code = See_Comment L [Automated 189-8) message] The sy stem which generated this [...] RDW-SD (test code = 39.9 fL 39-49.9 71372-7) RDW-CV (test code = 12.1 % 12-15.5 788-0) PLT (test code = See_Comment [Automated 777-3) message] The sy stem which generated this result transmitted reference range : 166 - 358 10*3/ ?L. The reference r shahbaz was not used to interpret this result as normal/abnormal . MPV (test code = 9.2 fL 9.5-12.9 L 37706-7) NRBC/100 WBC (test See_Comment [Automat ed code = 1978095375) message] The system which generated this result transmitted reference range : 0.0 - 10.0 /100 WBCs. The refer ence range was not u sed to interpret th is result as normal/abnormal . NRBC x10^3 (test code <0.01 See_Comment [Auto mated = 2793563692) message] The s ystem which generated this result transmitted reference range : 10*3/?L. The reference range was not used to interpret this result as normal/abnormal . GRAN MAT (NEUT) % 58.5 % (test code = 770-8) IMM GRAN % (test code 0.30 % = 3804623597) LYMPH % (test code = 30.8 % 736-9) MONO % (test code = 6.3 % 5905-5) EOS % (test code = 3.1 % 713-8) BASO % (test code = 1.0 % 706-2) GRAN MAT x10^3(ANC) 5.54 10*3/uL 1.88-7.09 (test code = 5921121193) IMM GRAN x10^3 (test 0.03 10*3/uL 0-0.06 code = 2094139719) LYMPH x10^3 (test code 2.92 10*3/uL 1.32-3.29 = 731-0) MONO x10^3 (test code 0.60 10*3/uL 0.33-0.92 = 742-7) EOS x10^3 (test code = 0.29 10*3/uL 0.03-0.39 711-2) BASO x10^3 (test code 0.09 10*3/uL 0.01-0.07 H = 704-7) Lab Interpretation Abnormal (test code = 61161-9) [facility] [id number] 14:03:00 Test Item Value Reference Range Interpretation Comments POCT PREG (test code = 1605) Negative On board controls acceptable with C Yes Line (test code = 3574) POCT PREG LOT # (test code = 3575) POCT PREG TEST DATE (test code = 3576) Lab Interpretation (test code = Normal 31332-7) [facility] [id number] 22:54:00 Test Item Value Reference Range Interpretation Comments POCT PREG (test code = 1605) Negative On board controls acceptable with C Yes Line (test code = 3574) POCT PREG LOT # (test code = 3575) POCT PREG TEST DATE (test code = 3576) [facility] [id number] 22:54:00 Test Item Value Reference Range Interpretation Comments POCT PREG (test code = 1605) Negative On board controls acceptable with C Yes Line (test code = 3574) POCT PREG LOT # (test code = 3575) POCT PREG TEST DATE (test code = 3576) [facility]"
--- NOTE | 2022-09-16 16:10 | ER ---
Nurse's Notes [facility] Name: Kelsi Leung Age: 37 yrs Sex: Female : 1985 Arrival Date: 09/16/2022 Time: 15:42 Bed Waiting Private MD: Diagnosis: Headache;Otalgia, right ear Presentation: 09/16 15:59 Chief complaint: Right ear pain x 3 months, decreased hearing and increased pain over hb the last week. Coronavirus screen: At this time, the client does not indicate any symptoms associated with coronavirus-19. Ebola Screen: No symptoms or risks identified at this time. Initial Sepsis Screen: Does the patient meet any 2 criteria? No. Patient's initial sepsis screen is negative. Does the patient have a suspected source of infection? No. Patient's initial sepsis screen is negative. Risk Assessment: Do you want to hurt yourself or someone else? Patient reports no desire to harm self or others. Onset of symptoms was June 2022. 15:59 Method Of Arrival: Ambulatory hb 15:59 Acuity: CAMERON 4 hb Triage Assessment: 16:25 Headache History: Denies prior headaches. General: Appears in no apparent distress. hb Behavior is calm, cooperative. Pain: Pain currently is 9 out of 10 on a pain scale. EENT: Reports right ear pain and decreased hearing. Neuro: Level of Consciousness is awake, alert, obeys commands, Oriented to person, place, time, situation. Cardiovascular: Patient's skin is warm and dry. Respiratory: Respiratory effort is even, unlabored, Respiratory pattern is regular, symmetrical. Historical: - Allergies: 16:01 sertraline; hb - PMHx: 16:01 Colitis; Crohn's Disease; hb - PSHx: 16:01 Total abdominal hysterectomy; hb - Immunization history:: Adult Immunizations up to date. - Social history:: Smoking status: Patient denies any tobacco usage or history of. Screenin:26 Abuse screen: Denies threats or abuse. Denies injuries from another. Nutritional hb screening: No deficits noted. Tuberculosis screening: No symptoms or risk factors identified. Fall Risk None identified. Assessment: 16:25 General: See triage assessment. hb Vital Signs: 15:59 BP 139 / 98; Pulse 81; Resp 16; Temp 98.2; Pulse Ox 100% on R/A; Weight 72.57 kg; hb Height 5 ft. 3 in. (160.02 cm); Pain 9/10; 15:59 Body Mass Index 28.34 (72.57 kg, 160.02 cm) hb [place] Coma Score: 16:14 Eye Response: spontaneous(4). Verbal Response: oriented(5). Motor Response: obeys snw commands(6). Total: 15. ED Course: 15:42 Patient arrived in ED. as 16:01 Triage completed. hb 16:01 Arm band placed on. hb 16:02 Krupa Alarcon FNP-C [facility]. snw 16:02 Tan Krause MD is Attending Physician. snw 16:08 Jennifer Villagomez MD is Referral Physician. snw 16:26 Patient has correct armband on for positive identification. hb 16:26 No provider procedures requiring assistance completed. Patient did not have IV access hb during this emergency room visit. Administered Medications: 16:24 Drug: Ketorolac 30 mg Route: IM; Site: right ventrogluteal; hb 16:24 Drug: Valtrex (valACYclovir) 1000 mg Route: PO; hb 16:24 Drug: Pepcid (famotidine) 20 mg Route: PO; hb 16:24 Drug: ZyrTEC - Cetirizine 10 mg Route: PO; hb 16:24 Drug: predniSONE 40 mg Route: PO; hb Medication: 16:26 VIS not applicable for this client. hb Outcome: 16:10 Discharge ordered by MD. snw 16:26 Discharged to home ambulatory, with significant other. hb 16:26 Condition: stable 16:26 Discharge instructions given to patient, significant other, Instructed on discharge instructions, follow up and referral plans. medication usage, Demonstrated understanding of instructions, follow-up care, medications, Prescriptions given X 4. 16:27 Patient left the ED. hb Signatures: Krupa Alarcon FNP-C FNP-Luzma Dominguez Heather, RN RN hb
--- NOTE | 2022-09-16 16:10 | EDPHYS ---
Physician Documentation [facility] Name: Kelsi Leung Age: 37 yrs Sex: Female : 1985 Arrival Date: 09/16/2022 Time: 15:42 Bed Waiting Private MD: LUIS Physician Tan Krause HPI: 09/16 16:15 This 37 yrs old Female presents to ER via Ambulatory with complaints of Headache, Ear snw Pain, Dizziness, Nausea. 16:15 The patient complains of pain to the right ear and right gnosticist. The patient describes snw the headache as unrelenting. Onset: The symptoms/episode began/occurred suddenly, 3 month(s) ago, and became persistent. Severity of symptoms: At its worst the pain was moderate. Headache History: The patient has had previous headaches and this one is similar to previous episodes. The symptoms are alleviated by nothing. the symptoms are aggravated by nothing, movement, stress. The patient has not experienced similar symptoms in the past. sees Dr. Smart, has referral to ENT. Historical: - Allergies: 16:01 sertraline; hb - PMHx: 16:01 Colitis; Crohn's Disease; hb - PSHx: 16:01 Total abdominal hysterectomy; hb - Immunization history:: Adult Immunizations up to date. - Social history:: Smoking status: Patient denies any tobacco usage or history of. ROS: 16:14 Eyes: Negative for injury, pain, redness, and discharge. snw 16:14 Neck: Negative for injury, pain, and swelling, Cardiovascular: Negative for chest pain, palpitations, and edema, Respiratory: Negative for shortness of breath, cough, wheezing, and pleuritic chest pain, Abdomen/GI: Negative for abdominal pain, nausea, vomiting, diarrhea, and constipation, Back: Negative for injury and pain, : Negative for injury, bleeding, discharge, and swelling, MS/Extremity: Negative for injury and deformity, Skin: Negative for injury, rash, and discoloration. 16:14 Constitutional: Positive for malaise, poor PO intake. 16:14 ENT: Positive for ear pain, hearing loss, sinus pain. 16:14 Neuro: Positive for headache, hearing loss. Exam: 16:13 Constitutional: This is a well developed, well nourished patient who is awake, alert, snw and in no acute distress. Eyes: Pupils equal round and reactive to light, extra-ocular motions intact. Lids and lashes normal. Conjunctiva and sclera are non-icteric and not injected. Cornea within normal limits. Periorbital areas with no swelling, redness, or edema. Neck: Trachea midline, no thyromegaly or masses palpated, and no cervical lymphadenopathy. Supple, full range of motion without nuchal rigidity, or vertebral point tenderness. No Meningismus. Chest/axilla: Normal chest wall appearance and motion. Nontender with no deformity. No lesions are appreciated. Cardiovascular: Regular rate and rhythm with a normal S1 and S2. No gallops, murmurs, or rubs. Normal PMI, no JVD. No pulse deficits. Respiratory: Lungs have equal breath sounds bilaterally, clear to auscultation and percussion. No rales, rhonchi or wheezes noted. No increased work of breathing, no retractions or nasal flaring. Abdomen/GI: Soft, non-tender, with normal bowel sounds. No distension or tympany. No guarding or rebound. No evidence of tenderness throughout. Back: No spinal tenderness. No costovertebral tenderness. Full range of motion. Skin: Warm, dry with normal turgor. Normal color with no rashes, no lesions, and no evidence of cellulitis. MS/ Extremity: Pulses equal, no cyanosis. Neurovascular intact. Full, normal range of motion. Psych: Awake, alert, with orientation to person, place and time. Behavior, mood, and affect are within normal limits. Vital Signs: 15:59 BP 139 / 98; Pulse 81; Resp 16; Temp 98.2; Pulse Ox 100% on R/A; Weight 72.57 kg; hb Height 5 ft. 3 in. (160.02 cm); Pain 9/10; 15:59 Body Mass Index 28.34 (72.57 kg, 160.02 cm) hb [place] Coma Score: 16:14 Eye Response: spontaneous(4). Verbal Response: oriented(5). Motor Response: obeys snw commands(6). Total: 15. MDM: 16:07 Patient medically screened. snw 16:14 Data reviewed: vital signs, nurses notes. Data interpreted: Pulse oximetry: on room air snw is 100 %. Interpretation: normal. Special discussion: I have referred the patient to see his PCP for further evaluation of high blood pressure. Based on the history and exam findings, there is no indication for further emergent testing or inpatient evaluation. I discussed with the patient/guardian the need to see the ENT specialist for further evaluation of the symptoms. I discussed with the patient/guardian the need to see the primary care provider for further evaluation of the symptoms. Administered Medications: 16:24 Drug: Ketorolac 30 mg Route: IM; Site: right ventrogluteal; hb 16:24 Drug: Valtrex (valACYclovir) 1000 mg Route: PO; hb 16:24 Drug: Pepcid (famotidine) 20 mg Route: PO; hb 16:24 Drug: ZyrTEC - Cetirizine 10 mg Route: PO; hb 16:24 Drug: predniSONE 40 mg Route: PO; hb Disposition Summary: 09/16/22 16:10 Discharge Ordered Location: Home snw Condition: Stable snw Diagnosis - Headache snw - Otalgia, right ear snw Followup: snw - With: Emergency Department - When: As needed - Reason: Worsening of condition Followup: snw - With: Private Physician - When: 1 - 2 days - Reason: Recheck today's complaints, Continuance of care, Re-evaluation by your physician Followup: snw - With: Jennifer Villagomez MD - When: 1 week - Reason: Recheck today's complaints, Continuance of care Discharge Instructions: - Discharge Summary Sheet snw - Earache, Adult snw - Trigeminal Neuralgia snw - Rehydration, Adult snw Forms: - Medication Reconciliation Form snw - Thank You Letter snw - Antibiotic Education snw - Prescription Opioid Use snw Prescriptions: - valacyclovir 1 gram Oral tablet - take 1 tablet by ORAL route every 8 hours for 7 days; 21 tablet; Refills: 0, snw Product Selection Permitted - Zyrtec 10 mg Oral Tablet - take 1 tablet by ORAL route once daily As needed; 20 tablet; Refills: 0, snw Product Selection Permitted - Prednisone 20 mg Oral Tablet - take 2 tablets by ORAL route once daily for 5 days; 10 tablet; Refills: 0, snw Product Selection Permitted - Pepcid 20 mg Oral Tablet - take 1 tablet by ORAL route once daily; 20 tablet; Refills: 0, Product snw Selection Permitted Signatures: Krupa Alarcon, TECHNICAL PROFESSIONAL-C TECHNICAL PROFESSIONAL-Csnw Lexi Rivas, RN RN hb
[2022-09-16] MEDS ORDERED: predniSONE 20 MG TAB ONE (16:13)
[2022-09-16] MEDS ORDERED: ACYCLOVIR 400 MG TABLET ONE (16:13)
[2022-09-16] MEDS ORDERED: CETIRIZINE HCL 5 MG TABLET ONE (16:13)
[2022-09-16] MEDS ORDERED: KETOROLAC 30 MG/ML INJ ONE (16:14)
[2022-09-16] MEDS ORDERED: FAMOTIDINE 20 MG TAB ONE (16:14)
[2022-09-16 17:00] VITALS: BP 139/98; TEMP 98.2; O2SAT 100
== END 2022-09-16 16:27 | disposition home or self-care (01) ==
LOC: ER 15:41
DX: R51.9 Headache, unspecified (principal); H92.01 Otalgia, right ear; Z88.8 Allergy status to other drugs, medicaments and biological substances
CPT/HCPCS: 96372; 99283; J7512

== ENCOUNTER 2023-05-10 14:24 | Emergency (ER) | payer OTHER ==
--- OUTSIDE RECORDS SUMMARY | 2023-05-10 14:35 | XMS REPORT | Continuity of Care Document ---
:1985 Author Organization [facility] t Address [address] [place] [address] [address] [place] [address] Care Team Providers Name Role Phone SEVERINO SMART Primary Care Physician Unavailable Severino Smart Attending Clinician Unavailable SONDRA CHAVIRA Attending Clinician Unavailable SONDRA CHAVIRA Attending Clinician Unavailable Armond Moore DO Attending Clinician Blaine Varela Attending Clinician Doctor Unassigned, [place] Attending Clinician Unavailable Sandee Guillen DO Attending [...] Number Effective Date Expiration Date [facility] [id number] 2016 HEALTH CHOICE 00:00:00 [facility]ICAID [facility] [id number] [facility] HEALTH CHOICE [facility] [id number] [facility] CHOICE [facility] [id number] [facility] CHOICE [facility] [id number] [facility] CHOICE [facility] [id number] [facility] Problems Condition Condition Condition Status Onset Resolution [...] of human human 00:00: g of this [place] papillomav papillomav 00 note Me dical irus (HPV) irus (HPV) might be Branch DNA test DNA test different positive positive from the original. 04/10/19 - pap smear was normal but HPV 6 was positive. Started on DepoProve ra March 2019. Abdominal Abdominal Disease Active 2019 Overview: Univers pain, pain, 6-19 Formattin ity of generalize generalize 00:00: g of this [place] d d 00 note Medical might be Branch different from the original. Patient followed by GI in [place] Menorrhagi Menorrhagi Disease Active 2019- U nivers a with a with 6-19 ity of regular regular 00:00: cycle cycle 00 Medical Branch Dysmenorrh Dysmenorrh Disease Active U nivers ea ea 6-19 ity of 00:00: Medical Branch Menorrhagi Menorrhagi Disease Active Overview : Faye a with a with 6-19 Formattin ity of regular regular 00:00: g of this cycle cycle 00 note Medical might be Branch different from the original. March 2019 - DepoProve ra started. 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 01/03/2020 - s/p TLH and b/l salpingec lorraine. Pathology benign with no pathology seen. [id number] Constipati Problem Com mon on, Spirit unspecifie - CHI d constipati [facility] on [facility] [id number] GERD Problem Common without Spirit esophagiti [facility] [id number] Hyperlipid Problem Com mon emia, Spirit unspecifie - CHI d hyperlipid [facility] emia [facility] [id number] Loss of Problem Common taste [facility] [id number] [facility] [id number] Generalize Problem Com mon d anxiety [facility] disorder [facility] [id number] Primary Problem Common insomnia [facility] [id number] Migraine Problem Comm on without Spirit aura and - CHI without [facility] migrainosu Medica l s, not Center intractabl e Spondylosi Spondylosi Problem C ommon s s [facility] [id number] Crohn's Problem Common disease Spirit with - [facility] gastrointe stinal tract location [id number] Autoimmune Problem Com mon disease [facility] Allergies, Adverse Reactions, Alerts Allergy Allergy Status Severity Reaction(s) Onset Inactive Treating Comm ents Source Name Type Date Date Clinician SERTRALI DRUG Active High Unknown-Cmnt Un olayinka NE INGREDI 3-13 ity of 00:00: Medical Branch sertrali sertrali Active Unknown Commo n ne ne Spirit - [facility] NO KNOWN Drug Active Univers ALLERGIE Class ity of S [facility] Social History Social Habit Start Date Stop Date Quantity Comments Source History of Common Spirit - Tobacco Use [facility] Exposure to Not sure University of SARS-CoV-2 [facility] (event) Branch Sex Assigned At Common Sp yasir - [facility] Alcohol intake 2021-08-04 2021-08-04 Ex-drinker University 00:00:00 00:00:00 (finding) [facility] Tobacco Comment 2019-12-31 2019-12-31 1 ppd Universit y of 00:00:00 00:00:00 [facility] Tobacco use and 2019-04-10 2019-04-10 Never used Universit y of exposure 00:00:00 00:00:00 [facility] Smoking Status Start Date Stop Date Source Former Smoker 2022-10-08 00:00:00 2022-10-08 00:00:00 Common S pirit - [facility] Current Smoker 2022-07-25 00:00:00 Common Spiri t [facility] Medications Ordered Filled Start Stop Current Ordering Indication Dosage Frequency Signature Comments Components Source Medication Medication Date Date Medication? Clinician (SIG) Name Name diazePAM 2 diazePAM 2 2021-10 No 1{table diazePAM 2 MG MG -21 t_as_ne MG 00:00: eded} 00 diazePAM 2 diazePAM 2 2021-10 No 1{table diazePAM 2 MG MG - t_as_ne MG 00:00: eded} 00 diazePAM 2 diazePAM 2 2021-10 No 1{table diazePAM 2 MG MG 1-02 t_as_ne MG 00:00: eded} 00 Levocetiriz Levocetiriz [...] in 250 MG 00:00: 00:00 00 :00 [facility] 2021-10 No 40mg Common (Triamcinol (Triamcinol 0-04 S pirit one) one) 00:00: - CHI 00 [facility] Kenalog 2021-10 No 40mg Common (Triamcinol (Triamcinol 0-04 S pirit one) one) 00:00: - CHI 00 [facility] Kenalog Kenalog 2021-10 No 40mg Common (Triamcinol (Triamcinol 0-04 S pirit one) one) 00:00: - CHI 00 [facility] Kenalog Kenalog 2021-10 No 40mg Common (Triamcinol (Triamcinol 0-04 S pirit one) one) 00:00: - CHI 00 [facility] Britany Garg 2021- No 40mg Common (Triamcinol (Triamcinol 0-04 S pirit one) one) 00:00: - CHI 00 [facility] Britany Garg 2021-1 No 40mg Common (Triamcinol (Triamcinol 0-04 S pirit one) one) 00:00: - CHI 00 [facility] diazePAM 2 diazePAM 2 2021-0 No [...] traMADol HCl 50 MG HCl 50 MG 03-30-18 t_as_ne HCl 50 MG 00:00: 00:00 eded} 00 :00 traMADol traMADol 2021-0 2022- No 1{table QD traMADol HCl 50 MG HCl 50 MG 03-30-18 t_as_ne HCl 50 MG 00:00: 00:00 eded} 00 :00 diazePAM 2 diazePAM 2 2-0 No 1{table diazePAM 2 MG MG 5-05 t_as_ne MG 00:00: eded} 00 diazePAM 2 diazePAM 2 2-0 No 1{table diazePAM 2 MG MG 5-05 t_as_ne MG 00:00: eded} 00 diazePAM 2 diazePAM 2 2-0 No 1{table diazePAM 2 MG MG 5-05 t_as_ne MG 00:00: eded} 00 diazePAM 2 diazePAM 2 2-0 No 1{table diazePAM 2 MG MG 5-05 t_as_ne MG 00:00: eded} 00 Cyclobenzap Cyclobenzap 2021-0 2022- No QD Cyclobenza rine HCl 10 rine HCl 10 3-31 04-30 michelle HCl MG MG 00:00: 00:00 10 MG 00 :00 Cyclobenzap Cyclobenzap 2-0 2022- No QD Cyclobenza rine HCl 10 rine HCl 10 3-31 04-30 michelle HCl MG MG 00:00: 00:00 10 MG 00 :00 Cyclobenzap Cyclobenzap 2021-0 2022- No QD Cyclobenza rine HCl 10 rine HCl 10 3-31 04-30 michelle HCl MG MG 00:00: 00:00 10 MG 00 :00 Cyclobenzap Cyclobenzap 2-0 2022- No QD Cyclobenza rine HCl 10 rine HCl 10 3-31 04-30 michelle HCl MG MG 00:00: 00:00 10 MG 00 :00 Kenalog Kenalog 2021-0 No 40mg Common (Triamcinol (Triamcinol 3-30 S pirit one) one) 00:00: - CHI 00 [facility] Toradol Toradol 2021-0 No 60mg Common (Ketorolac) (Ketorolac) 3-30 S pirit 00:00: - CHI [facility] Kenalog Kenalog 2021-0 No 40mg Common (Triamcinol (Triamcinol 3-30 S pirit one) one) 00:00: - CHI 00 [facility] Toradol Toradol 2021-0 No 60mg Common (Ketorolac) (Ketorolac) 3-30 S pirit 00:00: - CHI [facility] Kenalog Kenalog 2021-0 No 40mg Common (Triamcinol (Triamcinol 3-30 S pirit one) one) 00:00: - CHI 00 [facility] Toradol Toradol 2021-0 No 60mg Common (Ketorolac) (Ketorolac) 3-30 S pirit 00:00: - CHI 00 [facility] Kenalog Kenalog 2021-0 No 40mg Common (Triamcinol (Triamcinol 3-30 S pirit one) one) 00:00: - CHI 00 [facility] Toradol Toradol 2021-0 No 60mg Common (Ketorolac) (Ketorolac) 3-30 S pirit 00:00: - CHI 00 [facility] Kenalog Kenalog 2021-0 No 40mg Common (Triamcinol (Triamcinol 3-30 S pirit one) one) 00:00: - CHI [facility] Toradol Toradol 2021-0 No 60mg Common (Ketorolac) (Ketorolac) 3-30 S pirit 00:00: - CHI 00 [facility] Kenalog Kenalog 2021-0 No 40mg Common (Triamcinol (Triamcinol 3-30 S pirit one) one) 00:00: - CHI 00 [facility] Toradol Toradol 2021-0 No 60mg Common (Ketorolac) (Ketorolac) 3-30 S pirit 00:00: - CHI 00 [facility] Kenalog Kenalog 2021-0 No 40mg Common (Triamcinol (Triamcinol 3-30 S pirit one) one) 00:00: - CHI 00 [facility] Toradol Toradol 2021-0 No 60mg Common (Ketorolac) (Ketorolac) 3-30 S pirit 00:00: - CHI 00 [facility] Kenalog Kenalog 2021-0 No 40mg Common (Triamcinol (Triamcinol 3-30 S pirit one) one) 00:00: - CHI [facility] Toradol Toradol 2021-0 No 60mg Common (Ketorolac) (Ketorolac) 3-30 S pirit 00:00: - CHI 00 [facility] Kenalog Kenalog 2021-0 No 40mg Common (Triamcinol (Triamcinol 3-30 S pirit one) one) 00:00: - CHI 00 [facility] Toradol Toradol 2021-0 No 60mg Common (Ketorolac) (Ketorolac) 3-30 S pirit 00:00: - CHI [facility] Kenalog Kenalog 2021-0 No 40mg Common (Triamcinol (Triamcinol 3-30 S pirit one) one) 00:00: - CHI 00 [facility] Toradol Toradol 2021-0 No 60mg Common (Ketorolac) (Ketorolac) 3-30 S pirit 00:00: - CHI [facility] Kenalog Kenalog 2021-0 No 40mg Common (Triamcinol (Triamcinol 3-30 S pirit one) one) 00:00: - CHI [facility] Toradol Toradol 2021-0 No 60mg Common (Ketorolac) (Ketorolac) 3-30 S pirit 00:00: - CHI [facility] Kenalog Kenalog 2021-0 No 40mg Common (Triamcinol (Triamcinol 3-30 S pirit one) one) 00:00: - CHI [facility] Toradol Toradol 2021-0 No 60mg Common (Ketorolac) (Ketorolac) 3-30 S pirit 00:00: - CHI [facility] Kenalog Kenalog 2021-0 No 40mg Common (Triamcinol (Triamcinol 3-30 S pirit one) one) 00:00: - CHI [facility] Toradol Toradol 2021-0 No 60mg Common (Ketorolac) (Ketorolac) 3-30 S pirit 00:00: - CHI [facility] Kenalog Kenalog 2021-0 No 40mg Common (Triamcinol (Triamcinol 3-30 S pirit one) one) 00:00: - CHI [facility] Toradol Toradol 2021-0 No 60mg Common (Ketorolac) (Ketorolac) 3-30 S pirit 00:00: - CHI [facility] Kenalog Kenalog 2021-0 No 40mg Common (Triamcinol (Triamcinol 3-30 S pirit one) one) 00:00: - CHI 00 [facility] Toradol Toradol 2021-0 No 60mg Common (Ketorolac) (Ketorolac) 3-30 S pirit 00:00: - CHI 00 [facility] Kenalog Kenalog 2021-0 No 40mg Common (Triamcinol (Triamcinol 3-30 S pirit one) one) 00:00: - CHI 00 [facility] Toradol Toradol 2021-0 No 60mg Common (Ketorolac) (Ketorolac) 3-30 S pirit 00:00: - CHI [facility] Kenalog Kenalog 2021-0 No 40mg Common (Triamcinol (Triamcinol 3-30 S pirit one) one) 00:00: - CHI [facility] Toradol Toradol 2021-0 No 60mg Common (Ketorolac) (Ketorolac) 3-30 S pirit 00:00: - CHI 00 [facility] Kenalog Kenalog 2021-0 No 40mg Common (Triamcinol (Triamcinol 3-30 S pirit one) one) 00:00: - CHI 00 [facility] Toradol Toradol 2021-0 No 60mg Common (Ketorolac) (Ketorolac) 3-30 S pirit 00:00: - CHI 00 [facility] Kenalog Kenalog 2021-0 No 40mg Common (Triamcinol (Triamcinol 3-30 S pirit one) one) 00:00: - CHI 00 [facility] Toradol Toradol 2021-0 No 60mg Common (Ketorolac) (Ketorolac) 3-30 S pirit 00:00: - CHI 00 [facility] Kenalog Kenalog 2021-0 No 40mg Common (Triamcinol (Triamcinol 3-30 S pirit one) one) 00:00: - CHI [facility] Toradol Toradol 2021-0 No 60mg Common (Ketorolac) (Ketorolac) 3-30 S pirit 00:00: - CHI 00 [facility] Kenalog Kenalog 2021-0 No 40mg Common (Triamcinol (Triamcinol 3-30 S pirit one) one) 00:00: - CHI 00 [facility] Toradol Toradol 2-0 No 60mg Common (Ketorolac) (Ketorolac) 3-30 S pirit 00:00: - CHI 00 [facility] Kenalog Kenalog 2021-0 No 40mg Common (Triamcinol (Triamcinol 3-30 S pirit one) one) 00:00: - CHI 00 [facility] Toradol Toradol 2-0 No 60mg Common (Ketorolac) (Ketorolac) 3-30 S pirit 00:00: - CHI 00 [facility] Kenalog Kenalog 2-0 No 40mg Common (Triamcinol (Triamcinol 3-30 S pirit one) one) 00:00: - CHI 00 [facility] Toradol Toradol 2-0 No 60mg Common (Ketorolac) (Ketorolac) 3-30 S pirit 00:00: - CHI 00 [facility] Tamiflu 75 Tamiflu 75 2021-0 No [...] MG 00:00: 00 Tamiflu 75 Tamiflu 75 2-0 No 1{capsu BID Tamiflu 75 MG MG 3-03 le} MG 00:00: 00 Tamiflu 75 Tamiflu 75 2-0 No 1{capsu BID Tamiflu 75 MG MG 3-03 le} MG 00:00: 00 Tamiflu 75 Tamiflu 75 2021-0 No 1{capsu BID Tamiflu 75 MG MG 3-03 le} MG 00:00: 00 Topiramate Topiramate 2021-0 No QD Topiramate 50 MG 50 MG 3-02 50 MG 00:00: 00 diazePAM 2 diazePAM 2 2021- No [...] MG MG 3-02 t_as_ne MG 00:00: eded} diazePAM 2 diazePAM 2 2021- No 1{table diazePAM 2 MG MG 3-02 t_as_ne MG 00:00: eded} 00 diazePAM 2 diazePAM 2 No 1{table diazePAM 2 MG MG 3-02 [...] 2020-10- No Emgality 120 MG/ML 120 MG/ML 2-01 04-11 120 MG/ML 00:00: 00:00 00 :00 Emgality Emgality 2021-1 2022- No Emgality 120 MG/ML 120 MG/ML 11-23 120 MG/ML 00:00: 00:00 00 :00 Emgality Emgality 2020-10- No Emgality 120 MG/ML 120 MG/ML 11-23 120 MG/ML 00:00: 00:00 00 :00 Levsin Levsin 2020-10- No 1{table Levsin 0.125 MG 0.125 MG 014 08-09 t_as_ne 0.125 MG 00:00: 00:00 eded} 00 :00 Levsin Levsin 2020-10- No 1{table Levsin 0.125 MG 0.125 MG 014 18 t_as_ne 0.125 MG 00:00: 00:00 eded} 00 :00 piperacilli 2020-10 3.375g 3.375 g, Univers n-tazobacta 008-04 IV ity of m (ZOSYN) 18:15: 18:10 [...] No 4mg 4 mg, Slow Univers (ZOFRAN 008-04 IV Push, ity of (PF)) 17:30: 16:38 ONCE, 1 [place] injection 4 00 :00 dose, On Medi gabriel mg Wed Branch 08/04/21 at 1230, Routine iopamidol 2020-10- No [id number] 120mL 120 mL, Univers (ISOVUE 008-04 Intravenou ity o f 370-500 mL) 16:48: 16:48 s, ONCE, 1 [place] injection 00 :00 dose, On Medica l 120 mL Wed Branch 08/04/21 at 1200, Routine NaCl 0.9% 2020-10- No 1000mL at 999 Uni vers (NS) bolus 0-13 10-13 mL/hr, ity of infusion 16:30: 18:30 1,000 mL, Jose as 1,000 mL 00 :00 IV Medical Infusion, Branch ONCE, 1 dose, On Mon08/04/21 at 1130, STAT morpHINE 2020-10 Yes 4mg 4 mg, Slow Uni vers injection 4 0-13 IV Push, ity of mg 16:26: Q4HPRN, [place] 36 Starting Medical on Mon08/04/21 at 1126, Until Discontinu ed, Routine, Pain (scale 7-10) ondansetron 2020-10 Yes [id number] 4mg Take 1 Univers 4 mg 0-13 tablet by ity of disintegrat 00:00: mouth [place] ing tablet 00 every 8 Medica l (eight) hours as needed for Nausea and Vomiting (N/V). Ondansetron Ondansetron No 1{table Ondansetro 4 MG 4 MG 8-12 t_on_th n 4 MG 00:00: e_tongu e_and_a llow_to _dissol ve} Ibuprofen Ibuprofen No TID Ibuprofen 600 MG 600 MG 8-12 600 MG 00:00: 00 Ibuprofen Ibuprofen No TID Ibuprofen 600 MG 600 MG 8-12 600 MG 00:00: 00 Ondansetron Ondansetron No 1{table Ondansetro 4 MG 4 MG 8-12 t_on_th n 4 MG 00:00: e_tong e_and_a llow_to _dissol ve} Ibuprofen Ibuprofen No TID Ibuprofen 600 MG 600 MG 8-12 600 MG 00:00: 00 Ondansetron Ondansetron No 1{table Ondansetro 4 MG 4 MG 8-12 t_on_th n 4 MG 00:00: e_tongu e_and_a llow_to _dissol ve} Ibuprofen Ibuprofen No TID Ibuprofen 600 MG 600 MG 8-12 600 MG 00:00: 00 Ondansetron Ondansetron No 1{table Ondansetro 4 MG 4 MG 8-12 t_on_th n 4 MG 00:00: e_tongu 00 e_and_a llow_to _dissol ve} Ibuprofen Ibuprofen 2020-0 [...] MG 8-12 600 MG 00:00: 00 ibuprofen 1-0 2021- No 600mg 600 mg, Uni vers (IBU) - 07-30 Oral, ity of tablet 600 22:00: 09:59 ONCE, 1 Jose as mg 00 :00 dose, [facility] 05/20/21 at Branch 1700, [place] ibuprofen 2020-0 Yes [id number] 600mg Take 1 Univers 600 mg 7- 9107 tablet by ity of tablet 00:00: mouth [place] 00 every 6 Medical (six) Branch hours as needed for Pain (scale 4-6). acetaminoph 2020-0 Yes [id number] 1{tbl} Take 1 Un olayinka en-codeine 7-29 tablet by ity of 300-30 mg 00:00: mouth [place] tablet 00 every 4 Medical (four) Branch hours as needed for Pain (scale 4-6). Indication s: acute pain ibuprofen 2020-0 Yes [id number] 600mg Take 1 Univers 600 mg 7-29 9107 tablet by ity of tablet 00:00: mouth [place] 00 every 6 Medical (six) Branch hours as needed for Pain (scale 4-6). acetaminoph 2020- Yes [id number] 1{tbl} Take 1 Un olayinka en-codeine 7-29 tablet by ity of 300-30 mg 00:00: mouth [place] tablet 00 every 4 Medical (four) Branch hours as needed for Pain (scale 4-6). Indication s: acute pain Promethazin Promethazin 2020-0 No 1{table Promethazi e HCl 12.5 e HCl 12.5 4-07 t_as_ne ne HCl MG MG 00:00: eded} 12.5 MG 00 Pseudoeph-B Pseudoeph-B 2020- No Pseudoeph- romphen-DM romphen-DM - Bromphen-D 30-2- 302- 00:00: M 30-2-10 MG/5ML MG/5ML 00 MG/5ML Promethazin Promethazin 2020-0 No 1{table Promethazi e HCl 12.5 e HCl 12.5 4-07 t_as_ne ne HCl MG MG 00:00: eded} 12.5 MG 00 Pseudoeph-B Pseudoeph-B 2020-0 No Pseudoeph- romphen-DM romphen-DM - Bromphen-D 30-2-10 302- 00:00: M 30-2-10 MG/5ML MG/5ML 00 MG/5ML Promethazin Promethazin 2020-0 No 1{table Promethazi e HCl 12.5 e HCl 12.5 4-07 t_as_ne ne HCl MG MG 00:00: eded} 12.5 MG 00 Pseudoeph-B Pseudoeph-B 2020-0 No Pseudoeph- romphen-DM romphen-DM 4-07 Bromphen-D 30-2-10 302-10 00:00: M 30-2-10 MG/5ML MG/5ML 00 MG/5ML Promethazin Promethazin 2020-0 No 1{table Promethazi e HCl 12.5 e HCl 12.5 4-07 t_as_ne ne HCl MG MG 00:00: eded} 12.5 MG 00 Pseudoeph-B Pseudoeph-B 1-0 No Pseudoeph- romphen-DM romphen-DM 4-07 Bromphen-D 30-2-10 [...] mg 01/21/21 at Branch 1730, [place] metoclopram No 10mg 10 mg, Uni vers rene HCl 01-21 Slow IV ity of (REGLAN) 21:45: 20:53 Push, [place] injection 00 :00 ONCE, 1 Medical 10 mg dose, [facility] Branch 01/21/21 at 1645, [place] ketorolac No 30mg 30 mg, Unive rs (TORADOL) 01-21 Slow IV ity of injection 20:45: 20:54 Push, [place] 30 mg 00 :00 ONCE, 1 Medical dose, [facility] Branch 01/21/21 at 1545, [place]
Fa culty [...] Catherine 01/21/21 at 1430, [place] ondansetron Yes [id number] 4mg Take 1 Univers (ZOFRAN 4-01 tablet by ity of ODT) 4 mg 00:00: mouth [place] disintegrat 00 every 8 Medic al ing tablet (eight) Branch hours as needed for Nausea and Vomiting (N/V). ondansetron Yes [id number] 4mg Take 1 Univers (ZOFRAN 4-01 tablet by ity of ODT) 4 mg 00:00: mouth [place] disintegrat 00 every 8 Medic al ing tablet (eight) Branch hours as needed for Nausea and Vomiting (N/V). ondansetron Yes [id number] 4mg Take 1 Univers (ZOFRAN 4-01 tablet by ity of ODT) 4 mg 00:00: mouth [place] disintegrat 00 every 8 Medic al ing tablet (eight) Branch hours as needed for Nausea and Vomiting (N/V). ondansetron 2020- No [id number] 4mg Take 1 Univers (ZOFRAN 4-01 10-13 tablet by ity of ODT) 4 mg 00:00: 00:00 mouth [place] disintegrat 00 :00 every 8 Medic al ing tablet (eight) Branch hours as needed for Nausea and Vomiting (N/V). iohexol 2019-10- No 100mL 100 mL, Unive rs (OMNIPAQUE 2-10-20 Intravenou it y of 350 15:00: 14:52 s, ONCE, 1 [place] BULK-100 00 :00 dose, Tue Medica l mL) 10/20/20 Branch injection at 0915, 100 mL Routine ondansetron 2019-10- No 4mg 4 mg, Slow Univers (ZOFRAN 2-29 12- IV Push, ity of (PF)) 15:00: 14:01 ONCE, 1 [place] injection 4 00 :00 dose, Tue Med ical mg 10/20/20 Branch at 0900, [place] morpHINE 2020- 2020- No 4mg 4 mg, Slow Un olayinka injection 4 2-29 10-20 IV Push, ity of mg 15:00: 14:03 ONCE, 1 [place] 00 :00 dose, e Medical 10/20/20 Branch at 0900, STAT diazePAM 2 2019- Yes [id number] 2mg Take 1 U nivers mg tablet 2-29 tablet by ity o f 00:00: mouth 3 (three) Medical times Branch daily as needed for Muscle Spasms. ibuprofen 2019-10 Yes [id number] 800mg Take 1 U nivers 800 mg 2-29 tablet by ity of tablet 00:00: mouth 00 every 8 Medical (eight) Branch hours. diazePAM 2 2019-10 Yes [id number] 2mg Take 1 U nivers mg tablet 2-29 tablet by ity o f 00:00: mouth 3 (three) Medical times Branch daily as needed for Muscle Spasms. ibuprofen 2019-10 Yes [id number] 800mg Take 1 U nivers 800 mg 2-29 tablet by ity of tablet 00:00: mouth 00 every 8 Medical (eight) Branch hours. diazePAM 2 2019-10 Yes [id number] 2mg Take 1 U nivers mg tablet 2-29 tablet by ity o f 00:00: mouth 3 (three) Medical times Branch daily as needed for Muscle Spasms. ibuprofen 2019-10 Yes [id number] 800mg Take 1 U nivers 800 mg 2-29 tablet by ity of tablet 00:00: mouth [place] 00 every 8 Medical (eight) Branch hours. diazePAM 2 2019-10 Yes [id number] 2mg Take 1 U nivers mg tablet 2-29 tablet by ity o f 00:00: mouth 3 (three) Medical times Branch daily as needed for Muscle Spasms. ibuprofen 2019-10 Yes [id number] 800mg Take 1 U nivers 800 mg 2-29 tablet by ity of tablet 00:00: mouth [place] 00 every 8 Medical (eight) Branch hours. diazePAM 2 2019-10 Yes [id number] 2mg Take 1 U nivers mg tablet 2-29 tablet by ity o f 00:00: mouth 3 (three) Medical times Branch daily as needed for Muscle Spasms. ibuprofen 2019-10 Yes [id number] 800mg Take 1 U nivers 800 mg 2-29 tablet by ity of tablet 00:00: mouth [place] 00 every 8 Medical (eight) Branch hours. diazePAM 2 2019- Yes [id number] 2mg Take 1 U nivers mg tablet 2-29 tablet by ity o f 00:00: mouth 3 [place] 00 (three) Medical times Branch daily as needed for Muscle Spasms. ibuprofen 2019- Yes [id number] 800mg Take 1 U nivers 800 mg 2-29 tablet by ity of tablet 00:00: mouth [place] 00 every 8 Medical (eight) Branch hours. ibuprofen 2019-0 2020- No 600mg 600 mg, Uni vers (IBU) 07-15- Oral, ity of tablet 600 22:45: 21:58 ONCE, 1 [place] as mg 00 :00 dose, Wed Medical 07/15/20 at Branch 1745, [place] dicyclomine 2020-0 Yes [id number] 10mg Take 1 Univers (BENTYL) 10 9-23 capsule by it y of mg capsule 00:00: mouth [place] 00 (four) Medical times Branch daily as needed for Abdominal pain. dicyclomine 2020-0 Yes [id number] 10mg Take 1 Univers (BENTYL) 10 9-23 capsule by it y of mg capsule 00:00: mouth [place] 00 (four) Medical times Branch daily as needed for Abdominal pain. dicyclomine 2020-0 Yes [id number] 10mg Take 1 Univers (BENTYL) 10 9-23 capsule by it y of mg capsule 00:00: mouth [place] 00 (four) Medical times Branch daily as needed for Abdominal pain. dicyclomine 2020-0 Yes [id number] 10mg Take 1 Univers (BENTYL) 10 9-23 capsule by it y of mg capsule 00:00: mouth [place] 00 (four) Medical times Branch daily as needed for Abdominal pain. dicyclomine 2020-0 Yes [id number] 10mg Take 1 Univers (BENTYL) 10 9-23 capsule by it y of mg capsule 00:00: mouth [place] 00 (four) Medical times Branch daily as needed for Abdominal pain. dicyclomine 2020-0 Yes [id number] 10mg Take 1 Univers (BENTYL) 10 9-23 capsule by it y of mg capsule 00:00: mouth [place] 00 (four) Medical times Branch daily as needed for Abdominal pain. dicyclomine 2020-0 Yes [id number] 10mg Take 1 Univers (BENTYL) 10 9-23 capsule by it y of mg capsule 00:00: mouth 4 [place] 00 (four) Medical times Branch daily as needed for Abdominal pain. dicyclomine 2020-0 Yes [id number] 10mg Take 1 Univers (BENTYL) 10 9-23 capsule by it y of mg capsule 00:00: mouth [place] 00 (four) Medical times Branch daily as needed for Abdominal pain. ProAir HFA ProAir HFA 2019-0 Yes Severino 2 puffs as Common 06-02 Smart needed Spirit 00:00: - [facility] 00 [facility] ProAir HFA ProAir HFA 2020-0 No 2{puffs ProAir HFA 108 (90 108 (90 8-11 _as_nee 108 (90 Base) Base) 00:00: ded} Base) MCG/ACT MCG/ACT 00 MCG/ACT ProAir HFA ProAir HFA 2019-0 No 2{puffs ProAir HFA 108 (90 108 (90 8-11 _as_nee 108 (90 Base) Base) 00:00: ded} Base) MCG/ACT MCG/ACT 00 MCG/ACT ProAir HFA ProAir HFA 2019-0 No 2{puffs ProAir HFA 108 (90 108 [...] MCG/ACT ACETAMINOPH 2020-0 2020- No Take by Un olayinka EN EXTRA 01-16- mouth. ity of STRENGTH 18:34: 00:00 [place] ORAL 08 :00 Medical Branch ACETAMINOPH 2019-0 2020- No Take by Un olayinka EN EXTRA 01-16 mouth. ity of STRENGTH 18:34: 00:00 [place] ORAL 08 :00 Medical Branch ACETAMINOPH 2019-0 2020- No Take by Un olayinka EN EXTRA 01-16 mouth. ity of STRENGTH 18:34: 00:00 [place] ORAL 08 :00 Medical Branch ACETAMINOPH 2019-0 2020- No Take by Un olayinka EN EXTRA 01-16- mouth. ity of STRENGTH 18:34: 00:00 [place] ORAL 08 :00 Medical Branch traMADol 50 2020-0 Yes [id number] 50mg Take 1 [facility] mg tablet 3-27 tablet by ity o f 00:00: mouth [place] 00 every 8 Medical (eight) Branch hours as needed (moderate pain). traMADol 50 2020-0 Yes [id number] 50mg Take 1 [facility] mg tablet 3-27 tablet by ity o f 00:00: mouth [place] 00 every 8 Medical (eight) Branch hours as needed (moderate pain). traMADol 50 2020-0 Yes [id number] 50mg Take 1 [facility] mg tablet 3-27 tablet by ity o f 00:00: mouth [place] 00 every 8 Medical (eight) Branch hours as needed (moderate pain). traMADol 50 2020-0 Yes [id number] 50mg Take 1 [facility] mg tablet 3-27 tablet by ity o f 00:00: mouth [place] 00 every 8 Medical (eight) Branch hours as needed (moderate pain). traMADol 50 2020-0 Yes [id number] 50mg Take 1 [facility] mg tablet 3-27 tablet by ity o f 00:00: mouth [place] 00 every 8 Medical (eight) Branch hours as needed (moderate pain). traMADol 50 2020-0 Yes [id number] 50mg Take 1 [facility] mg tablet 3-27 tablet by ity o f 00:00: mouth [place] 00 every 8 Medical (eight) Branch hours as needed (moderate pain). traMADol 50 2020-0 Yes [id number] 50mg Take 1 [facility] mg tablet 3-27 tablet by ity o f 00:00: mouth [place] 00 every 8 Medical (eight) Branch hours as needed (moderate pain). traMADol 50 2020-0 Yes [id number] 50mg Take 1 [facility] mg tablet 3-27 tablet by ity o f 00:00: mouth [place] 00 every 8 Medical (eight) Branch hours as needed (moderate pain). traMADol 50 2020-0 Yes [id number] 50mg Take 1 [facility] mg tablet 3-27 tablet by ity o f 00:00: mouth [place] 00 every 8 Medical (eight) Branch hours as needed (moderate pain). traMADol 50 2020-0 Yes [id number] 50mg Take 1 [facility] mg tablet 3-27 tablet by ity o f 00:00: mouth [place] 00 every 8 Medical (eight) Branch hours as needed (moderate pain). traMADol 50 2020-0 Yes [id number] 50mg Take 1 [facility] mg tablet 3-27 tablet by ity o f 00:00: mouth [place] 00 every 8 Medical (eight) Branch hours as needed (moderate pain). traMADol 50 2020-0 Yes [id number] 50mg Take 1 [facility] mg tablet 3-27 tablet by ity o f 00:00: mouth [place] 00 every 8 Medical (eight) Branch hours as needed (moderate pain). traMADol 50 2020-0 Yes [id number] 50mg Take 1 [facility] mg tablet 3-27 tablet by ity o f 00:00: mouth [place] 00 every 8 Medical (eight) Branch hours as needed (moderate pain). traMADol 50 2020-0 Yes [id number] 50mg Take 1 [facility] mg tablet 3-27 tablet by ity o f 00:00: mouth [place] 00 every 8 Medical (eight) Branch hours as needed (moderate pain). traMADol 50 2020-0 Yes [id number] 50mg Take 1 [facility] mg tablet 3-27 tablet by ity o f 00:00: mouth [place] 00 every 8 Medical (eight) Branch hours as needed (moderate pain). traMADol 50 2020-0 Yes [id number] 50mg Take 1 Univers mg tablet 3-27 tablet by ity o f 00:00: mouth [place] 00 every 8 Medical (eight) Branch hours as needed (moderate pain). traMADol 50 2020-0 Yes [id number] 50mg Take 1 Univers mg tablet 3-27 tablet by ity o f 00:00: mouth [place] 00 every 8 Medical (eight) Branch hours as needed (moderate pain). traMADol 50 2020-0 Yes [id number] 50mg Take 1 [facility] mg tablet 3-27 tablet by ity o f 00:00: mouth [place] 00 every 8 Medical (eight) Branch hours as needed (moderate pain). traMADol 50 2020-0 Yes [id number] 50mg Take 1 Univers mg tablet 3-27 tablet by ity o f 00:00: mouth [place] 00 every 8 Medical (eight) Branch hours as needed (moderate pain). OMEPRAZOLE 2020-0 Yes 40mg Take 40 mg U nivers ORAL 3-16 by mouth. ity of 14:17: [address] ACETAMINOPH 2020-0 Yes Take by Uni vers EN EXTRA 3-16 mouth. ity of STRENGTH 14:17: [address] BUPROPION 2020-0 Yes Take by Unive rs HCL ORAL 3-16 mouth. ity of 14:17: [address] OMEPRAZOLE 2020-0 Yes 40mg Take 40 mg U nivers ORAL 3-16 by mouth. ity of 14:17: [address] ACETAMINOPH 2020-0 Yes Take by Uni vers EN EXTRA 3-16 mouth. ity of STRENGTH 14:17: [address] BUPROPION 2020-0 Yes Take by Unive rs HCL ORAL 3-16 mouth. ity of 14:17: [address] OMEPRAZOLE 2020-0 Yes 40mg Take 40 mg U nivers ORAL 3-16 by mouth. ity of 14:17: [address] ACETAMINOPH 2020-0 Yes Take by Uni vers EN EXTRA 3-16 mouth. ity of STRENGTH 14:17: [address] BUPROPION 2020-0 Yes Take by Unive rs HCL ORAL 3-16 mouth. ity of 14:17: [place] 39 Medical Branch OMEPRAZOLE 2020-0 Yes 40mg Take 40 mg U nivers ORAL 3-16 by mouth. ity of 14:17: [address] ACETAMINOPH 2020-0 Yes Take by Uni vers EN EXTRA 3-16 mouth. ity of STRENGTH 14:17: [address] Branch BUPROPION 2020-0 Yes Take by Unive rs HCL ORAL 3-16 mouth. ity of 14:17: [address] OMEPRAZOLE 2020-0 Yes 40mg Take 40 mg U nivers ORAL 3-16 by mouth. ity of 14:17: [address] Branch BUPROPION 2020-0 Yes Take by Unive rs HCL ORAL 3-16 mouth. ity of 14:17: [address] OMEPRAZOLE 2020-0 Yes 40mg Take 40 mg U nivers ORAL 3-16 by mouth. ity of 14:17: [address] BUPROPION 2020-0 Yes Take by Unive rs HCL ORAL 3-16 mouth. ity of 14:17: [address] OMEPRAZOLE 2020-0 Yes 40mg Take 40 mg U nivers ORAL 3-16 by mouth. ity of 14:17: [address] Branch BUPROPION 2020-0 Yes Take by Unive rs HCL ORAL 3-16 mouth. ity of 14:17: [address] OMEPRAZOLE 2020-0 Yes 40mg Take 40 mg U nivers ORAL 3-16 by mouth. ity of 14:17: [address] BUPROPION 2020-0 Yes Take by Unive rs HCL ORAL 3-16 mouth. ity of 14:17: [address] OMEPRAZOLE 2020-0 Yes 40mg Take 40 mg U nivers ORAL 3-16 by mouth. ity of 14:17: [address] BUPROPION 2020-0 Yes Take by Unive rs HCL ORAL 3-16 mouth. ity of 14:17: [address] OMEPRAZOLE 2020-0 Yes 40mg Take 40 mg U nivers ORAL 3-16 by mouth. ity of 14:17: [address] BUPROPION 2020-0 Yes Take by Unive rs HCL ORAL 3-16 mouth. ity of 14:17: [address] OMEPRAZOLE 2020-0 Yes 40mg Take 40 mg U nivers ORAL 3-16 by mouth. ity of 14:17: [address] BUPROPION 2020-0 Yes Take by Unive rs HCL ORAL 3-16 mouth. ity of 14:17: [address] OMEPRAZOLE 2020-0 Yes 40mg Take 40 mg U nivers ORAL 3-16 by mouth. ity of 14:17: [address] BUPROPION 2020-0 Yes Take by Unive rs HCL ORAL 3-16 mouth. ity of 14:17: [address] OMEPRAZOLE 2020-0 Yes 40mg Take 40 mg U nivers ORAL 3-16 by mouth. ity of 14:17: [address] BUPROPION 2020-0 Yes Take by Unive rs HCL ORAL 3-16 mouth. ity of 14:17: [address] OMEPRAZOLE 2020-0 Yes 40mg Take 40 mg U nivers ORAL 3-16 by mouth. ity of 14:17: [address] BUPROPION 2020-0 Yes Take by Unive rs HCL ORAL 3-16 mouth. ity of 14:17: [address] OMEPRAZOLE 2020-0 Yes 40mg Take 40 mg U nivers ORAL 3-16 by mouth. ity of 14:17: [address] BUPROPION 2020-0 Yes Take by Unive rs HCL ORAL 3-16 mouth. ity of 14:17: [address] OMEPRAZOLE 2020-0 Yes 40mg Take 40 mg U nivers ORAL 3-16 by mouth. ity of 14:17: [address] BUPROPION 2020-0 Yes Take by Unive rs HCL ORAL 3-16 mouth. ity of 14:17: [address] OMEPRAZOLE 2020-0 Yes 40mg Take 40 mg U nivers ORAL 3-16 by mouth. ity of 14:17: [address] BUPROPION 2020-0 Yes Take by Unive rs HCL ORAL 3-16 mouth. ity of 14:17: [address] OMEPRAZOLE 2020-0 Yes 40mg Take 40 mg U nivers ORAL 3-16 by mouth. ity of 14:17: [address] BUPROPION 2020-0 Yes Take by Unive rs HCL ORAL 3-16 mouth. ity of 14:17: [address] OMEPRAZOLE 2020-0 Yes 40mg Take 40 mg U nivers ORAL 3-16 by mouth. ity of 14:17: [address] BUPROPION 2020-0 Yes Take by Unive rs HCL ORAL 3-16 mouth. ity of 14:17: [address] OMEPRAZOLE 2020-0 Yes 40mg Take 40 mg U nivers ORAL 3-16 by mouth. ity of 14:17: [address] BUPROPION 2020-0 Yes Take by Unive rs HCL ORAL 3-16 mouth. ity of 14:17: [address] OMEPRAZOLE 2020-0 Yes 40mg Take 40 mg U nivers ORAL 3-16 by mouth. ity of 14:17: [address] BUPROPION 2020-0 Yes Take by Unive rs HCL ORAL 3-16 mouth. ity of 14:17: [address] OMEPRAZOLE 2020-0 Yes 40mg Take 40 mg U nivers ORAL 3-16 by mouth. ity of 14:17: [address] BUPROPION 2020-0 Yes Take by Unive rs HCL ORAL 3-16 mouth. ity of 14:17: [address] OMEPRAZOLE 2020-0 Yes 40mg Take 40 mg U nivers ORAL 3-16 by mouth. ity of 09:17: [address] BUPROPION 2020-0 Yes Take by Unive rs HCL ORAL 3-16 mouth. ity of 09:17: [address] HYDROcodone 2020-0 Yes [id number] 1{tbl} Take 1 Univers -acetaminop 3-16 tablet by ity of hen 5-325 00:00: mouth [place] mg tablet 00 every 6 Medical (six) Branch hours as needed for Pain (scale 4-6) or Pain (scale 7-10). HYDROcodone 2020-0 Yes [id number] 1{tbl} Take 1 Univers -acetaminop 3-16 tablet by ity of hen 5-325 00:00: mouth [place] mg tablet 00 every 6 Medical (six) Branch hours as needed for Pain (scale 4-6) or Pain (scale 7-10). HYDROcodone 2020-0 Yes [id number] 1{tbl} Take 1 Univers -acetaminop 3-16 tablet by ity of hen 5-325 00:00: mouth [place] mg tablet 00 every 6 Medical (six) Branch hours as needed for Pain (scale 4-6) or Pain (scale 7-10). HYDROcodone 2020-0 2020- No [id number] 1{tbl} Take 1 Univers -acetaminop 3-16 03-27 tablet by it y of hen 5-325 00:00: 00:00 mouth [place] mg tablet 00 :00 every 6 Medical (six) Branch hours as needed for Pain (scale 4-6) or Pain (scale 7-10). HYDROcodone 2020-0 2020- No [id number] 1{tbl} Take 1 Univers -acetaminop 3-16 03-27 tablet by it y of hen 5-325 00:00: 00:00 mouth [place] mg tablet 00 :00 every 6 Medical (six) Branch hours as needed for Pain (scale 4-6) or Pain (scale 7-10). HYDROcodone 2020-0 2020- No [id number] 1{tbl} Take 1 Univers -acetaminop 3-16 03-27 tablet by it y of hen 5-325 00:00: 00:00 mouth [place] mg tablet 00 :00 every 6 Medical (six) Branch hours as needed for Pain (scale 4-6) or Pain (scale 7-10). HYDROcodone 2020-0 2020- No [id number] 1{tbl} Take 1 Univers -acetaminop 3-16 -27 tablet by it y of hen [...] [place], PACU
En ter indication for use: [facility]
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 Branch 01/03/20 at 1330, Routine
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 ity of 17:55: [address] ACETAMINOPH 2020-0 Yes Take by Uni vers EN EXTRA 3- mouth. ity of STRENGTH 17:55: [address] BUPROPION 2020-0 Yes Take by Unive rs HCL ORAL 3-13 mouth. ity of 17:55: [address] bupivacaine 2020-0 Yes PRN, Univer s -epinephrin 3-13 Starting ity of e-pf 17:05: Fri [place] (SENSORCAIN 00 01/03/[address], Branch W/EPINEPHRI Until NE) 0.5 Discontinu %-1:200,000 ed, injection Routine, Intra-op sodium 2020-0 Yes PRN, Univers chloride 3- Starting ity of 0.9 % 17:05: Fri [place] irrigation 00 01/03/20 at Med ical solution 1205, Branch Until Discontinu ed, Intra-op metroNIDAZO 2020-0 Yes 2000mg 2,000 mg, Univers LE (FLAGYL 3-13 IV ity of I.V.) 16:02: Piggyback, [place] Piggyback 40 O.R. Medical 2,000 mg HOLDING Branch ONCE, 1 dose, Starting Mon01/03/20 at 1102, Until Discontinu ed, 400 mL, Intra-op<b r>Reason for Anti-Infec tive: Surgical Prophylaxi s
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
Duration of therapy: within 24 hours of surgery lactated 2019-0 2020- No 1000mL at 20 Unive rs ringers IV 01-02 03-13 mL/hr, ity of infusion 14:00: 14:58 1,000 mL, [place] as 1,000 mL 00 :00 IV Medical Infusion, Branch ONCE, 1 dose, Mon01/03/20 at 0900, Routine, DSU Pre-op HYDROcodone 2020-0 Yes [id number] 1{tbl} Take 1 Univers -acetaminop 3-13 tablet by ity of hen 5-325 00:00: mouth [place] mg tablet 00 every 6 Medical (six) Branch hours as needed for Pain (scale 4-6) or Pain (scale 7-10). HYDROcodone 2020-0 Yes [id number] 1{tbl} Take 1 Univers -acetaminop 3-13 tablet by ity of hen 5-325 00:00: mouth [place] mg tablet 00 every 6 Medical (six) Branch hours as needed for Pain (scale 4-6) or Pain (scale 7-10). HYDROcodone 2020-0 Yes [id number] 1{tbl} Take 1 Univers -acetaminop 3-13 tablet by ity of hen 5-325 00:00: mouth [place] mg tablet 00 every 6 Medical (six) Branch hours as needed for Pain (scale 4-6) or Pain (scale 7-10). HYDROcodone 2020-0 Yes [id number] 1{tbl} Take 1 Univers -acetaminop 3-13 tablet by ity of hen 5-325 00:00: mouth [place] mg tablet 00 every 6 Medical (six) Branch hours as needed for Pain (scale 4-6) or Pain (scale 7-10). HYDROcodone 2019- 2020- No [id number] 1{tbl} Take 1 Univers -acetaminop 3-13 03-27 tablet by it y of hen 5-325 00:00: 00:00 mouth [place] mg tablet 00 :00 every 6 Medical (six) Branch hours as needed for Pain (scale 4-6) or Pain (scale 7-10). HYDROcodone 2019- 2020- No [id number] 1{tbl} Take 1 Univers -acetaminop 3-13 03-27 tablet by it y of hen 5-325 00:00: 00:00 mouth [place] mg tablet 00 :00 every 6 Medical (six) Branch hours as needed for Pain (scale 4-6) or Pain (scale 7-10). HYDROcodone 2019-2019- No [id number] 1{tbl} Take 1 Univers -acetaminop 3-13 03-27 tablet by it y of hen 5-325 00:00: 00:00 mouth [place] mg tablet 00 :00 every 6 Medical (six) Branch hours as needed for Pain (scale 4-6) or Pain (scale 7-10). HYDROcodone 2019-2019- No [id number] 1{tbl} Take 1 Univers -acetaminop 3-13 03-27 tablet by it y of hen 5-325 00:00: 00:00 mouth [place] mg tablet 00 :00 every 6 Medical (six) Branch hours as needed for Pain (scale 4-6) or Pain (scale 7-10). ibuprofen 2020-0 Yes [id number] 600mg Take 1 Univers 600 mg 2-21 tablet by ity of tablet 00:00: mouth [place] 00 every 6 Medical (six) Branch hours as needed (pain). Take one tablet every 6 hours for 5 days then every 6 hours as needed. ibuprofen 2020-0 Yes [id number] 600mg Take 1 Univers 600 mg 2-21 tablet by ity of tablet 00:00: mouth [place] 00 every 6 Medical (six) Branch hours as needed (pain). Take one tablet every 6 hours for 5 days then every 6 hours as needed. ibuprofen 2020-0 Yes [id number] 600mg Take 1 [facility] 600 mg 2-21 tablet by ity of tablet 00:00: mouth [place] 00 every 6 Medical (six) Branch hours as needed (pain). Take one tablet every 6 hours for 5 days then every 6 hours as needed. ibuprofen 2020-0 Yes [id number] 600mg Take 1 [facility] 600 mg 2-21 tablet by ity of tablet 00:00: mouth [place] 00 every 6 Medical (six) Branch hours as needed (pain). Take one tablet every 6 hours for 5 days then every 6 hours as needed. ibuprofen 2020-0 Yes [id number] 600mg Take 1 Univers 600 mg 2-21 tablet by ity of tablet 00:00: mouth [place] 00 every 6 Medical (six) Branch hours as needed (pain). Take one tablet every 6 hours for 5 days then every 6 hours as needed. ibuprofen 2020-0 Yes [id number] 600mg Take 1 Univers 600 mg 2-21 tablet by ity of tablet 00:00: mouth [place] 00 every 6 Medical (six) Branch hours as needed (pain). Take one tablet every 6 hours for 5 days then every 6 hours as needed. ibuprofen 2020-0 Yes [id number] 600mg Take 1 Univers 600 mg 2-21 tablet by ity of tablet 00:00: mouth [place] 00 every 6 Medical (six) Branch hours as needed (pain). Take one tablet every 6 hours for 5 days then every 6 hours as needed. ibuprofen 2020-0 Yes [id number] 600mg Take 1 [facility] 600 mg 2-21 tablet by ity of tablet 00:00: mouth [place] 00 every 6 Medical (six) Branch hours as needed (pain). Take one tablet every 6 hours for 5 days then every 6 hours as needed. ibuprofen 2020-0 Yes [id number] 600mg Take 1 [facility] 600 mg 2-21 tablet by ity of tablet 00:00: mouth [place] 00 every 6 Medical (six) Branch hours as needed (pain). Take one tablet every 6 hours for 5 days then every 6 hours as needed. ibuprofen 2020-0 Yes [id number] 600mg Take 1 [facility] 600 mg 2-21 tablet by ity of tablet 00:00: mouth [place] 00 every 6 Medical (six) Branch hours as needed (pain). Take one tablet every 6 hours for 5 days then every 6 hours as needed. ibuprofen 2020-0 Yes [id number] 600mg Take 1 Univers 600 mg 2-21 tablet by ity of tablet 00:00: mouth [place] 00 every 6 Medical (six) Branch hours as needed (pain). Take one tablet every 6 hours for 5 days then every 6 hours as needed. ibuprofen 2020-0 Yes [id number] 600mg Take 1 Univers 600 mg 2-21 tablet by ity of tablet 00:00: mouth [place] 00 every 6 Medical (six) Branch hours as needed (pain). Take one tablet every 6 hours for 5 days then every 6 hours as needed. ibuprofen 2020-0 Yes [id number] 600mg Take 1 Univers 600 mg 2-21 tablet by ity of tablet 00:00: mouth [place] 00 every 6 Medical (six) Branch hours as needed (pain). Take one tablet every 6 hours for 5 days then every 6 hours as needed. ibuprofen 2020-0 Yes [id number] 600mg Take 1 Univers 600 mg 2-21 tablet by ity of tablet 00:00: mouth [place] 00 every 6 Medical (six) Branch hours as needed (pain). Take one tablet every 6 hours for 5 days then every 6 hours as needed. ibuprofen 2020-0 Yes [id number] 600mg Take 1 Univers 600 mg 2-21 tablet by ity of tablet 00:00: mouth [place] 00 every 6 Medical (six) Branch hours as needed (pain). Take one tablet every 6 hours for 5 days then every 6 hours as needed. ibuprofen 2020-0 Yes [id number] 600mg Take 1 [facility] 600 mg 2-21 tablet by ity of tablet 00:00: mouth [place] 00 every 6 Medical (six) Branch hours as needed (pain). Take one tablet every 6 hours for 5 days then every 6 hours as needed. ibuprofen 2020-0 Yes [id number] 600mg Take 1 [facility] 600 mg 2-21 tablet by ity of tablet 00:00: mouth [place] 00 every 6 Medical (six) Branch hours as needed (pain). Take one tablet every 6 hours for 5 days then every 6 hours as needed. ibuprofen 2020-0 Yes [id number] 600mg Take 1 Univers 600 mg 2-21 tablet by ity of tablet 00:00: mouth [place] 00 every 6 Medical (six) Branch hours as needed (pain). Take one tablet every 6 hours for 5 days then every 6 hours as needed. ibuprofen 2020-0 Yes [id number] 600mg Take 1 Univers 600 mg 2-21 tablet by ity of tablet 00:00: mouth [place] 00 every 6 Medical (six) Branch hours as needed (pain). Take one tablet every 6 hours for 5 days then every 6 hours as needed. ibuprofen 2020-0 Yes [id number] 600mg Take 1 [facility] 600 mg 2-21 tablet by ity of tablet 00:00: mouth [place] 00 every 6 Medical (six) Branch hours as needed (pain). Take one tablet every 6 hours for 5 days then every 6 hours as needed. ibuprofen 2020-0 Yes [id number] 600mg Take 1 Univers 600 mg 2-21 tablet by ity of tablet 00:00: mouth [place] 00 every 6 Medical (six) Branch hours as needed (pain). Take one tablet every 6 hours for 5 days then every 6 hours as needed. ibuprofen 2020-0 Yes [id number] 600mg Take 1 Univers 600 mg 2-21 tablet by ity of tablet 00:00: mouth [place] 00 every 6 Medical (six) Branch hours as needed (pain). Take one tablet every 6 hours for 5 days then every 6 hours as needed. ibuprofen 2020-0 Yes [id number] 600mg Take 1 [facility] 600 mg 2-21 tablet by ity of tablet 00:00: mouth [place] 00 every 6 Medical (six) Branch hours as needed (pain). Take one tablet every 6 hours for 5 days then every 6 hours as needed. ibuprofen 2020-0 Yes [id number] 600mg Take 1 [facility] 600 mg 2-21 tablet by ity of tablet 00:00: mouth [place] 00 every 6 Medical (six) Branch hours as needed (pain). Take one tablet every 6 hours for 5 days then every 6 hours as needed. ceFAZolin 2020-0 2020- No 2g Univers in dextrose 12-1018 ity of (iso-os) 06:00: 17:59 [place] (ANCEF) 2 00 :00 Medical gram/100 mL Branch Piggyback 2 g ceFAZolin 2020-0 2020- No 2g Univers in dextrose 12-10-18 ity of (iso-os) 06:00: 17:59 [place] (ANCEF) 2 00 :00 Medical gram/100 mL Branch Piggyback 2 g ceFAZolin 2020-0 2020- No 2g Univers in dextrose 12-10-18 ity of (iso-os) 06:00: 17:59 [place] (ANCEF) 2 00 :00 Medical gram/100 mL Branch Piggyback 2 g traMADol 50 2020-0 Yes [id number] 50mg Take 1 Univers mg tablet 2-09 tablet by ity o f 00:00: mouth [place] 00 every 6 Medical (six) Branch hours as needed (pain). traMADol 50 2020-0 Yes [id number] 50mg Take 1 Univers mg tablet 2-09 tablet by ity o f 00:00: mouth [place] 00 every 6 Medical (six) Branch hours as needed (pain). traMADol 50 2020-0 Yes [id number] 50mg Take 1 Univers mg tablet 2-09 tablet by ity o f 00:00: mouth [place] 00 every 6 Medical (six) Branch hours as needed (pain). traMADol 50 2020-0 Yes [id number] 50mg Take 1 Univers mg tablet 2-09 tablet by ity o f 00:00: mouth [place] 00 every 6 Medical (six) Branch hours as needed (pain). traMADol 50 2020-0 Yes [id number] 50mg Take 1 Univers mg tablet 2-09 tablet by ity o f 00:00: mouth [place] 00 every 6 Medical (six) Branch hours as needed (pain). traMADol 50 2020-0 Yes [id number] 50mg Take 1 Univers mg tablet 2-09 tablet by ity o f 00:00: mouth [place] 00 every 6 Medical (six) Branch hours as needed (pain). traMADol 50 2020-0 Yes [id number] 50mg Take 1 Univers mg tablet 2-09 tablet by ity o f 00:00: mouth [place] 00 every 6 Medical (six) Branch hours as needed (pain). traMADol 50 2020-0 Yes [id number] 50mg Take 1 Univers mg tablet 2-09 tablet by ity o f 00:00: mouth [place] 00 every 6 Medical (six) Branch hours as needed (pain). traMADol 50 2020-0 Yes [id number] 50mg Take 1 Univers mg tablet 2-09 tablet by ity o f 00:00: mouth [place] 00 every 6 Medical (six) Branch hours as needed (pain). traMADol 50 2020-0 Yes [id number] 50mg Take 1 Univers mg tablet 2-09 tablet by ity o f 00:00: mouth [place] 00 every 6 Medical (six) Branch hours as needed (pain). traMADol 50 2020-0 Yes [id number] 50mg Take 1 Univers mg tablet 2-09 tablet by ity o f 00:00: mouth [place] 00 every 6 Medical (six) Branch hours as needed (pain). traMADol 50 2020-0 Yes [id number] 50mg Take 1 Univers mg tablet 2-09 tablet by ity o f 00:00: mouth [place] 00 every 6 Medical (six) Branch hours as needed (pain). traMADol 50 2020-0 Yes [id number] 50mg Take 1 Univers mg tablet 2-09 tablet by ity o f 00:00: mouth [place] 00 every 6 Medical (six) Branch hours as needed (pain). traMADol 50 2020-0 Yes [id number] 50mg Take 1 Univers mg tablet 2-09 tablet by ity o f 00:00: mouth [place] 00 every 6 Medical (six) Branch hours as needed (pain). traMADol 50 2020-0 Yes [id number] 50mg Take 1 Univers mg tablet 2-09 tablet by ity o f 00:00: mouth [place] 00 every 6 Medical (six) Branch hours as needed (pain). traMADol 50 2020-0 Yes [id number] 50mg Take 1 Univers mg tablet 2-09 tablet by ity o f 00:00: mouth [place] 00 every 6 Medical (six) Branch hours as needed (pain). traMADol 50 2020-0 Yes [id number] 50mg Take 1 Univers mg tablet 2-09 tablet by ity o f 00:00: mouth [place] 00 every 6 Medical (six) Branch hours as needed (pain). traMADol 50 2020-0 Yes [id number] 50mg Take 1 Univers mg tablet 2-09 tablet by ity o f 00:00: mouth [place] 00 every 6 Medical (six) Branch hours as needed (pain). traMADol 50 2020-0 Yes [id number] 50mg Take 1 Univers mg tablet 2-09 tablet by ity o f 00:00: mouth [place] 00 every 6 Medical (six) Branch hours as needed (pain). traMADol 50 2020-0 Yes [id number] 50mg Take 1 Univers mg tablet 2-09 tablet by ity o f 00:00: mouth [place] 00 every 6 Medical (six) Branch hours as needed (pain). traMADol 50 2020-0 Yes [id number] 50mg Take 1 Univers mg tablet 2-09 tablet by ity o f 00:00: mouth [place] 00 every 6 Medical (six) Branch hours as needed (pain). traMADol 50 2020-0 Yes [id number] 50mg Take 1 Univers mg tablet 2-09 tablet by ity o f 00:00: mouth [place] 00 every 6 Medical (six) Branch hours as needed (pain). traMADol 50 2020-0 Yes [id number] 50mg Take 1 [facility] mg tablet 2-09 tablet by ity o f 00:00: mouth [place] 00 every 6 Medical (six) Branch hours as needed (pain). traMADol 50 2020-0 Yes [id number] 50mg Take 1 [facility] mg tablet 2-09 tablet by ity o f 00:00: mouth [place] 00 every 6 Medical (six) Branch hours as needed (pain). traMADol 50 2020-0 Yes [id number] 50mg Take 1 [facility] mg tablet 2-09 tablet by ity o f 00:00: mouth [place] 00 every 6 Medical (six) Branch hours as needed (pain). traMADol 50 2020-0 Yes [id number] 50mg Take 1 [facility] mg tablet 2-09 tablet by ity o f 00:00: mouth [place] 00 every 6 Medical (six) Branch hours as needed (pain). traMADol 50 2020-0 Yes [id number] 50mg Take 1 [facility] mg tablet 2-09 tablet by ity o f 00:00: mouth [place] 00 every 6 Medical (six) Branch hours as needed (pain). traMADol 50 2020-0 Yes [id number] 50mg Take 1 [facility] mg tablet 2-09 tablet by ity o f 00:00: mouth [place] 00 every 6 Medical (six) Branch hours as needed (pain). traMADol 50 2020-0 Yes [id number] 50mg Take 1 [facility] mg tablet 2-09 tablet by ity o f 00:00: mouth [place] 00 every 6 Medical (six) Branch hours as needed (pain). traMADol 50 2020-0 Yes [id number] 50mg Take 1 [facility] mg tablet 2-09 tablet by ity o f 00:00: mouth [place] 00 every 6 Medical (six) Branch hours as needed (pain). traMADol 50 2020-0 Yes [id number] 50mg Take 1 [facility] mg tablet 2-09 tablet by ity o f 00:00: mouth [place] 00 every 6 Medical (six) Branch hours as needed (pain). traMADol 50 2020-0 Yes [id number] 50mg Take 1 [facility] mg tablet 2-09 tablet by ity o f 00:00: mouth [place] 00 every 6 Medical (six) Branch hours as needed (pain). traMADol 50 2020-0 Yes [id number] 50mg Take 1 [facility] mg tablet 2-09 tablet by ity o f 00:00: mouth [place] 00 every 6 Medical (six) Branch hours as needed (pain). BUPROPION 2020-0 Yes Take by Unive rs HCL ORAL 2-07 mouth. ity of 23:53: [address] BUPROPION 2020-0 Yes Take by Unive rs HCL ORAL 2-07 mouth. ity of 23:53: [address] BUPROPION 2020-0 Yes Take by Unive rs HCL ORAL 2-07 mouth. ity of 23:53: [address] BUPROPION 2020-0 Yes Take by Unive rs HCL ORAL 2-07 mouth. ity of 23:53: [address] BUPROPION 2020-0 Yes Take by Unive rs HCL ORAL 2-07 mouth. ity of 23:53: [address] BUPROPION 2020-0 Yes Take by Unive rs HCL ORAL 2-07 mouth. ity of 23:53: [address] BUPROPION 2020-0 Yes Take by Unive rs HCL ORAL 2-07 mouth. ity of 23:53: [address] BUPROPION 2020-0 Yes Take by Unive rs HCL ORAL 2-07 mouth. ity of 23:53: [address] BUPROPION 2020-0 Yes Take by Unive rs HCL ORAL 2-07 mouth. ity of 23:53: [address] BUPROPION 2020-0 Yes Take by Unive rs HCL ORAL 2-07 mouth. ity of 23:53: [address] BUPROPION 2020-0 Yes Take by Unive rs HCL ORAL 2-07 mouth. ity of 23:53: [address] ACETAMINOPH 2020-0 Yes Take by Uni vers EN EXTRA 2-07 mouth. ity of STRENGTH 23:03: [address] ACETAMINOPH 2020-0 Yes Take by Uni vers EN EXTRA 2-07 mouth. ity of STRENGTH 23:03: [address] ACETAMINOPH 2020-0 Yes Take by Uni vers EN EXTRA 2-07 mouth. ity of STRENGTH 23:03: [place] ORAL 45 Medical Branch ACETAMINOPH 2020-0 Yes Take by Uni vers EN EXTRA 2-07 mouth. ity of STRENGTH 23:03: [place] [address] Medical Branch ACETAMINOPH 2020-0 Yes Take by Uni vers EN EXTRA 2-07 mouth. ity of STRENGTH 23:03: [place] [address] Medical Branch ACETAMINOPH 2020-0 Yes Take by Uni vers EN EXTRA 2-07 mouth. ity of STRENGTH 23:03: [place] [address] Medical Branch ACETAMINOPH 2020-0 Yes Take by Uni vers EN EXTRA 2-07 mouth. ity of STRENGTH 23:03: [place] [address] Medical Branch ACETAMINOPH 2020-0 Yes Take by Uni vers EN EXTRA 2-07 mouth. ity of STRENGTH 23:03: [place] [address] Medical Branch ACETAMINOPH 2020-0 Yes Take by Uni vers EN EXTRA 2-07 mouth. ity of STRENGTH 23:03: [place] [address] Medical Branch ACETAMINOPH 2020-0 Yes Take by Uni vers EN EXTRA 2-07 mouth. ity of STRENGTH 23:03: [place] [address] Medical Branch ACETAMINOPH 2020-0 Yes Take by Uni vers EN EXTRA 2-07 mouth. ity of STRENGTH 23:03: [place] [address] Medical Branch gabapentin 2020-0 Yes [id number] 300mg Take 1 [facility] 300 mg 2-07 capsule by ity of capsule 00:00: mouth 3 [place] 00 (three) Medical times Branch daily. acetaminoph 2020-0 Yes [id number] 1000mg Take 2 [facility] en (TYLENOL 2-07 tablets by it y of EXTRA 00:00: mouth [place] STRENGTH) 00 every 6 Medical 500 mg (six) Branch tablet hours. celecoxib 2020-0 Yes [id number] 200mg Take 1 [facility] (CELEBREX) 2-07 capsule by ity of 200 mg 00:00: mouth 2 [place] capsule 00 (two) Medical times Branch daily with meals. gabapentin 2020-0 Yes [id number] 300mg Take 1 [facility] 300 mg 2-07 capsule by ity of capsule 00:00: mouth 3 [place] 00 (three) Medical times Branch daily. acetaminoph 2020-0 Yes [id number] 1000mg Take 2 [facility] en (TYLENOL 2-07 tablets by it y of EXTRA 00:00: mouth [place] STRENGTH) 00 every 6 Medical 500 mg (six) Branch tablet hours. celecoxib 2020-0 Yes [id number] 200mg Take 1 [facility] (CELEBREX) 2-07 capsule by ity of 200 mg 00:00: mouth 2 [place] capsule 00 (two) Medical times Branch daily with meals. gabapentin 2020-0 Yes [id number] 300mg Take 1 [facility] 300 mg 2-07 capsule by ity of capsule 00:00: mouth 3 [place] 00 (three) Medical times Branch daily. acetaminoph 2020-0 Yes [id number] 1000mg Take 2 [facility] en (TYLENOL 2-07 tablets by it y of EXTRA 00:00: mouth [place] STRENGTH) 00 every 6 Medical 500 mg (six) Branch tablet hours. celecoxib 2020-0 Yes [id number] 200mg Take 1 [facility] (CELEBREX) 2-07 capsule by ity of 200 mg 00:00: mouth 2 [place] capsule 00 (two) Medical times Branch daily with meals. gabapentin 2020-0 Yes [id number] 300mg Take 1 [facility] 300 mg 2-07 capsule by ity of capsule 00:00: mouth 3 [place] 00 (three) Medical times Branch daily. acetaminoph 2020-0 Yes [id number] 1000mg Take 2 [facility] en (TYLENOL 2-07 tablets by it y of EXTRA 00:00: mouth [place] STRENGTH) 00 every 6 Medical 500 mg (six) Branch tablet hours. celecoxib 2020-0 Yes [id number] 200mg Take 1 [facility] (CELEBREX) 2-07 capsule by ity of 200 mg 00:00: mouth 2 [place] capsule 00 (two) Medical times Branch daily with meals. gabapentin 2020-0 Yes [id number] 300mg Take 1 [facility] 300 mg 2-07 capsule by ity of capsule 00:00: mouth 3 [place] 00 (three) Medical times Branch daily. acetaminoph 2020-0 Yes [id number] 1000mg Take 2 [facility] en (TYLENOL 2-07 tablets by it y of EXTRA 00:00: mouth [place] STRENGTH) 00 every 6 Medical 500 mg (six) Branch tablet hours. celecoxib 2020-0 Yes [id number] 200mg Take 1 [facility] (CELEBREX) 2-07 capsule by ity of 200 mg 00:00: mouth 2 [place] capsule 00 (two) Medical times Branch daily with meals. gabapentin 2020-0 Yes [id number] 300mg Take 1 [facility] 300 mg 2-07 capsule by ity of capsule 00:00: mouth 3 [place] 00 (three) Medical times Branch daily. acetaminoph 2020-0 Yes [id number] 1000mg Take 2 [facility] en (TYLENOL 2-07 tablets by it y of EXTRA 00:00: mouth [place] STRENGTH) 00 every 6 Medical 500 mg (six) Branch tablet hours. celecoxib 2020-0 Yes [id number] 200mg Take 1 [facility] (CELEBREX) 2-07 capsule by ity of 200 mg 00:00: mouth 2 [place] capsule 00 (two) Medical times Branch daily with meals. gabapentin 2020-0 Yes [id number] 300mg Take 1 [facility] 300 mg 2-07 capsule by ity of capsule 00:00: mouth 3 [place] 00 (three) Medical times Branch daily. acetaminoph 2020-0 Yes [id number] 1000mg Take 2 [facility] en (TYLENOL 2-07 tablets by it y of EXTRA 00:00: mouth [place] STRENGTH) 00 every 6 Medical 500 mg (six) Branch tablet hours. celecoxib 2020-0 Yes [id number] 200mg Take 1 [facility] (CELEBREX) 2-07 capsule by ity of 200 mg 00:00: mouth 2 [place] capsule 00 (two) Medical times Branch daily with meals. gabapentin 2020-0 Yes [id number] 300mg Take 1 [facility] 300 mg 2-07 capsule by ity of capsule 00:00: mouth 3 [place] 00 (three) Medical times Branch daily. acetaminoph 2020-0 Yes [id number] 1000mg Take 2 [facility] en (TYLENOL 2-07 tablets by it y of EXTRA 00:00: mouth [place] STRENGTH) 00 every 6 Medical 500 mg (six) Branch tablet hours. celecoxib 2020-0 Yes [id number] 200mg Take 1 [facility] (CELEBREX) 2-07 capsule by ity of 200 mg 00:00: mouth 2 [place] capsule 00 (two) Medical times Branch daily with meals. gabapentin 2020-0 Yes [id number] 300mg Take 1 [facility] 300 mg 2-07 capsule by ity of capsule 00:00: mouth 3 [place] 00 (three) Medical times Branch daily. acetaminoph 2020-0 Yes [id number] 1000mg Take 2 [facility] en (TYLENOL 2-07 tablets by it y of EXTRA 00:00: mouth [place] STRENGTH) 00 every 6 Medical 500 mg (six) Branch tablet hours. celecoxib 2020-0 Yes [id number] 200mg Take 1 [facility] (CELEBREX) 2-07 capsule by ity of 200 mg 00:00: mouth 2 [place] capsule 00 (two) Medical times Branch daily with meals. gabapentin 2020-0 Yes [id number] 300mg Take 1 [facility] 300 mg 2-07 capsule by ity of capsule 00:00: mouth 3 [place] 00 (three) Medical times Branch daily. acetaminoph 2020-0 Yes [id number] 1000mg Take 2 [facility] en (TYLENOL 2-07 tablets by it y of EXTRA 00:00: mouth [place] STRENGTH) 00 every 6 Medical 500 mg (six) Branch tablet hours. celecoxib 2020-0 Yes [id number] 200mg Take 1 [facility] (CELEBREX) 2-07 capsule by ity of 200 mg 00:00: mouth 2 [place] capsule 00 (two) Medical times Branch daily with meals. gabapentin 2020-0 Yes [id number] 300mg Take 1 [facility] 300 mg 2-07 capsule by ity of capsule 00:00: mouth 3 [place] 00 (three) Medical times Branch daily. acetaminoph 2020-0 Yes [id number] 1000mg Take 2 [facility] en (TYLENOL 2-07 tablets by it y of EXTRA 00:00: mouth [place] STRENGTH) 00 every 6 Medical 500 mg (six) Branch tablet hours. celecoxib 2020-0 Yes [id number] 200mg Take 1 [facility] (CELEBREX) 2-07 capsule by ity of 200 mg 00:00: mouth 2 [place] capsule 00 (two) Medical times Branch daily with meals. gabapentin 2020-0 Yes [id number] 300mg Take 1 [facility] 300 mg 2-07 capsule by ity of capsule 00:00: mouth 3 [place] 00 (three) Medical times Branch daily. acetaminoph 2020-0 Yes [id number] 1000mg Take 2 [facility] en (TYLENOL 2-07 tablets by it y of EXTRA 00:00: mouth [place] STRENGTH) 00 every 6 Medical 500 mg (six) Branch tablet hours. celecoxib 2020-0 Yes [id number] 200mg Take 1 [facility] (CELEBREX) 2-07 capsule by ity of 200 mg 00:00: mouth 2 [place] capsule 00 (two) Medical times Branch daily with meals. gabapentin 2020-0 Yes [id number] 300mg Take 1 [facility] 300 mg 2-07 capsule by ity of capsule 00:00: mouth 3 [place] 00 (three) Medical times Branch daily. acetaminoph 2020-0 Yes [id number] 1000mg Take 2 [facility] en (TYLENOL 2-07 tablets by it y of EXTRA 00:00: mouth [place] STRENGTH) 00 every 6 Medical 500 mg (six) Branch tablet hours. celecoxib 2020-0 Yes [id number] 200mg Take 1 [facility] (CELEBREX) 2-07 capsule by ity of 200 mg 00:00: mouth 2 [place] capsule 00 (two) Medical times Branch daily with meals. gabapentin 2020-0 Yes [id number] 300mg Take 1 [facility] 300 mg 2-07 capsule by ity of capsule 00:00: mouth 3 [place] 00 (three) Medical times Branch daily. acetaminoph 2020-0 Yes [id number] 1000mg Take 2 [facility] en (TYLENOL 2-07 tablets by it y of EXTRA 00:00: mouth [place] STRENGTH) 00 every 6 Medical 500 mg (six) Branch tablet hours. celecoxib 2020-0 Yes [id number] 200mg Take 1 [facility] (CELEBREX) 2-07 capsule by ity of 200 mg 00:00: mouth 2 [place] capsule 00 (two) Medical times Branch daily with meals. gabapentin 2020-0 Yes [id number] 300mg Take 1 [facility] 300 mg 2-07 capsule by ity of capsule 00:00: mouth 3 [place] 00 (three) Medical times Branch daily. acetaminoph 2020-0 Yes [id number] 1000mg Take 2 [facility] en (TYLENOL 2-07 tablets by it y of EXTRA 00:00: mouth [place] STRENGTH) 00 every 6 Medical 500 mg (six) Branch tablet hours. celecoxib 2020-0 Yes [id number] 200mg Take 1 [facility] (CELEBREX) 2-07 capsule by ity of 200 mg 00:00: mouth 2 [place] capsule 00 (two) Medical times Branch daily with meals. gabapentin 2020-0 Yes [id number] 300mg Take 1 [facility] 300 mg 2-07 capsule by ity of capsule 00:00: mouth 3 [place] 00 (three) Medical times Branch daily. acetaminoph 2020-0 Yes [id number] 1000mg Take 2 [facility] en (TYLENOL 2-07 tablets by it y of EXTRA 00:00: mouth [place] STRENGTH) 00 every 6 Medical 500 mg (six) Branch tablet hours. celecoxib 2020-0 Yes [id number] 200mg Take 1 [facility] (CELEBREX) 2-07 capsule by ity of 200 mg 00:00: mouth 2 [place] capsule 00 (two) Medical times Branch daily with meals. gabapentin 2020-0 2020- No [id number] 300mg Take 1 [facility] 300 mg 2-07 03-27 capsule by ity of capsule 00:00: 00:00 mouth 3 [place] 00 :00 (three) Medical times Branch daily. acetaminoph 2020-0 2020- No [id number] 1000mg Take 2 [facility] en (TYLENOL 11-29 tablets by i ty of EXTRA 00:00: 00:00 mouth [place] STRENGTH) 00 :00 every 6 Medical 500 mg (six) Branch tablet hours. celecoxib 2020-0 2020- No [id number] 200mg Take 1 [facility] (CELEBREX) 11-29 capsule by it y of 200 mg 00:00: 00:00 mouth 2 [place] capsule 00 :00 (two) Medical times Branch daily with meals. gabapentin 2020-0 2020- No [id number] 300mg Take 1 [facility] 300 mg 11-29 capsule by ity of capsule 00:00: 00:00 mouth 3 [place] 00 :00 (three) Medical times Branch daily. acetaminoph 2020-0 2020- No [id number] 1000mg Take 2 [facility] en (TYLENOL 11-29 tablets by i ty of EXTRA 00:00: 00:00 mouth [place] STRENGTH) 00 :00 every 6 Medical 500 mg (six) Branch tablet hours. celecoxib 2019-0 2020- No [id number] 200mg Take 1 [facility] (CELEBREX) 11-29 capsule by it y of 200 mg 00:00: 00:00 mouth 2 [place] capsule 00 :00 (two) Medical times Branch daily with meals. gabapentin 2019- 2020- No [id number] 300mg Take 1 [facility] 300 mg 11-29 capsule by ity of capsule 00:00: 00:00 mouth 3 [place] 00 :00 (three) Medical times Branch daily. acetaminoph 2020-0 2020- No [id number] 1000mg Take 2 [facility] en (TYLENOL 11-29 tablets by i ty of EXTRA 00:00: 00:00 mouth [place] STRENGTH) 00 :00 every 6 Medical 500 mg (six) Branch tablet hours. celecoxib 2020-0 2020- No [id number] 200mg Take 1 [facility] (CELEBREX) 11-29 capsule by it y of 200 mg 00:00: 00:00 mouth 2 [place] capsule 00 :00 (two) Medical times Branch daily with meals. gabapentin 2020-0 2020- No [id number] 300mg Take 1 [facility] 300 mg 11-29 capsule by ity of capsule 00:00: 00:00 mouth 3 [place] 00 :00 (three) Medical times Branch daily. acetaminoph 2019- 2020- No [id number] 1000mg Take 2 [facility] en (TYLENOL 11-29 tablets by i ty of EXTRA 00:00: 00:00 mouth [place] STRENGTH) 00 :00 every 6 Medical 500 mg (six) Branch tablet hours. celecoxib 2019- 2020- No [id number] 200mg Take 1 [facility] (CELEBREX) 11-29 capsule by it y of 200 mg 00:00: 00:00 mouth 2 [place] capsule 00 :00 (two) Medical times Branch daily with meals. traMADol 50 2019-0 Yes [id number] 50mg Take 1 [facility] mg tablet 1-28 tablet by ity o f 00:00: mouth [place] 00 every 8 Medical (eight) Branch hours as needed (pain). traMADol 50 2019-0 Yes [id number] 50mg Take 1 [facility] mg tablet 1-28 tablet by ity o f 00:00: mouth [place] 00 every 8 Medical (eight) Branch hours as needed (pain). traMADol 50 2019-0 Yes [id number] 50mg Take 1 [facility] mg tablet -28 tablet by ity o f 00:00: mouth [place] 00 every 8 Medical (eight) Branch hours as needed (pain). traMADol 50 2019-0 2020- No [id number] 50mg Take 1 [facility] mg tablet -20 12- tablet by ity of 00:00: 00:00 mouth [place] 00 :00 every 8 Medical (eight) Branch hours as needed (pain). traMADol 50 2019-0 2020- No [id number] 50mg Take 1 [facility] mg tablet -20 12- tablet by ity of 00:00: 00:00 mouth [place] 00 :00 every 8 Medical (eight) Branch hours as needed (pain). traMADol 50 2020-0 2020- No [id number] 50mg Take 1 [facility] mg tablet -20 [...] 250 mg 00 :00 Medical Branch cefTRIAXone 2019-0 2020- No 250mg 250 mg, [...] Medical Fri Branch 11/15/19 at 1830, Routine
[employer] member other ranks approving Restricted medication : SONDRA CHAVIRA ketorolac 2019-0 2020- No 60mg [facility] (TORADOL) 11-16 ity of injection 00:30: 23:15 [place] 60 mg 00 :00 Medical Branch medroxyPROG 2019- 2020- No 150mg Univ ers ESTERone 11-16 ity of (DEPO-PROVE 00:30: 23:00 [place] RA) 00 :00 Medical injection Branch 150 mg medroxyPROG 2020-0 2020- No 150mg 150 mg, U nivers ESTERone 11-16 Intramuscu ity of (DEPO-PROVE 00:30: 23:00 lar, ONCE, [place] RA) 00 :00 1 dose, Medical injection Fri Branch 150 mg 11/15/19 at 1830, Routine ketorolac 2019- 2020- No 60mg 60 mg, Unive rs (TORADOL) 11-16 Intramuscu ity of injection 00:30: 23:15 [place], ONCE, [place] 60 mg 00 :00 1 dose, Medical Fri Branch 11/15/19 at 1830, Routine
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 ity of 3 mg Tab 23:52: 00:00 [place] 25 :00 Medical Branch plecanatide 2020-0 2020- No Take by Un olayinka (TRULANCE) 11-1524 mouth. ity of 3 mg Tab 23:52: 00:00 [place] 25 :00 Medical Branch doxycycline 2020-0 Yes [id number] 100mg Take 1 [facility] 100 mg 1-24 tablet by ity of tablet 00:00: mouth 2 (two) Medical times Branch daily. doxycycline 2020-0 Yes [id number] 100mg Take 1 [facility] 100 mg 1-24 tablet by ity of tablet 00:00: mouth 2 (two) Medical times Branch daily. doxycycline 2020-0 Yes [id number] 100mg Take 1 [facility] 100 mg 1-24 tablet by ity of tablet 00:00: mouth 2 (two) Medical times Branch daily. doxycycline 2020-0 Yes [id number] 100mg Take 1 [facility] 100 mg 1-24 tablet by ity of tablet 00:00: mouth 2 [place] 00 (two) Medical times Branch daily. doxycycline 2020-0 Yes [id number] 100mg Take 1 [facility] 100 mg 1-24 tablet by ity of tablet 00:00: mouth 2 [place] 00 (two) Medical times Branch daily. doxycycline 2020-0 Yes [id number] 100mg Take 1 [facility] 100 mg 1-24 tablet by ity of tablet 00:00: mouth 2 [place] 00 (two) Medical times Branch daily. doxycycline 2020-0 Yes [id number] 100mg Take 1 [facility] 100 mg 1-24 tablet by ity of tablet 00:00: mouth 2 [place] 00 (two) Medical times Branch daily. doxycycline 2020-0 Yes [id number] 100mg Take 1 [facility] 100 mg 1-24 tablet by ity of tablet 00:00: mouth 2 [place] 00 (two) Medical times Branch daily. doxycycline 2020-0 Yes [id number] 100mg Take 1 [facility] 100 mg 1-24 tablet by ity of tablet 00:00: mouth 2 [place] 00 (two) Medical times Branch daily. doxycycline 2020-0 2020- No [id number] 100mg Take 1 [facility] 100 mg 1-24 02-07 tablet by ity of tablet 00:00: 00:00 mouth 2 [place] 00 :00 (two) Medical times Branch daily. doxycycline 2020-0 2020- No [id number] 100mg Take 1 [facility] 100 mg 1-24 02-07 tablet by ity of tablet 00:00: 00:00 mouth 2 [place] 00 :00 (two) Medical times Branch daily. doxycycline 2020-0 2020- No [id number] 100mg Take 1 [facility] 100 mg 1-24 02-07 tablet by ity of tablet 00:00: 00:00 mouth 2 [place] 00 :00 (two) Medical times Branch daily. Kenalog Kenalog 2018- No 40mg [facility] (Triamcinol (Triamcinol 2-03 S pirit one) one) 00:00: - [facility] 00 [facility] Kenalog Kenalog 2018- No 40mg [facility] (Triamcinol (Triamcinol 2-03 S pirit one) one) 00:00: - [facility] 00 [facility] Kenalog Kenalog 2018- No 40mg [facility] (Triamcinol (Triamcinol 2-03 S pirit one) one) 00:00: - [facility] 00 [facility] Kenalog Kenalog 2018- No 40mg [facility] (Triamcinol (Triamcinol 2-03 S pirit one) one) 00:00: - [facility] 00 [facility] Kenfernandez Kenalog 2019-1 No 40mg Common (Triamcinol (Triamcinol 2-03 S pirit one) one) 00:00: - [facility] 00 [facility] Britany Kenalog 2019-1 No 40mg [facility] (Triamcinol (Triamcinol 2-03 S pirit one) one) 00:00: - [facility] 00 [facility] Kenfernandez Kenalog 2019-1 No 40mg Common (Triamcinol (Triamcinol 2-03 S pirit one) one) 00:00: - [facility] 00 [facility] Kenfernandez Kenfernandez 2019-1 No 40mg Common (Triamcinol (Triamcinol 2-03 S pirit one) one) 00:00: - [facility] 00 [facility] Kenfernandez Kenfernandez 2019-1 No 40mg Common (Triamcinol (Triamcinol 2-03 S pirit one) one) 00:00: - [facility] 00 [facility] Kenfernandez Kenalog 2019-1 No 40mg Common (Triamcinol (Triamcinol 2-03 S pirit one) one) 00:00: - [facility] 00 [facility] Kenfernandez Kenfernandez 2019-1 No 40mg Common (Triamcinol (Triamcinol 2-03 S pirit one) one) 00:00: - [facility] 00 [facility] Kenfernandez Kenalog 2019-1 No 40mg Common (Triamcinol (Triamcinol 2-03 S pirit one) one) 00:00: - [facility] 00 [facility] Kenfernandez Kenalog 2019-1 No 40mg Common (Triamcinol (Triamcinol 2-03 S pirit one) one) 00:00: - [facility] 00 [facility] Kenfernandez Kenalog 2019-1 No 40mg Common (Triamcinol (Triamcinol 2-03 S pirit one) one) 00:00: - [facility] 00 [facility] Kenfernandez Kenalog 2019-1 No 40mg Common (Triamcinol (Triamcinol 2-03 S pirit one) one) 00:00: [facility] Common (Triamcinol (Triamcinol 2-03 S pirit one) one) 00:00: - [facility] 00 [facility] Britany Kenfernandez 2019- No 40mg Common (Triamcinol (Triamcinol 2-03 S pirit one) one) 00:00: - [facility] 00 [facility] Britany Kenfernandez 2019- No 40mg Common (Triamcinol (Triamcinol 2-03 S pirit one) one) 00:00: - [facility] 00 [facility] Britany Kenfernandez 2019- No 40mg Common (Triamcinol (Triamcinol 2-03 S pirit one) one) 00:00: - [facility] 00 [facility] Britany Kenfernandez 2019- No 40mg Common (Triamcinol (Triamcinol 2-03 S pirit one) one) 00:00: - [facility] 00 [facility] Britany Kenfernandez 2019- No 40mg Common (Triamcinol (Triamcinol 2-03 S pirit one) one) 00:00: - [facility] 00 [facility] Britany Kenfernandez 2019- No 40mg Common (Triamcinol (Triamcinol 2-03 S pirit one) one) 00:00: - [facility] 00 [facility] Britany Kenfernandez 2019- No 40mg Common (Triamcinol (Triamcinol 2-03 S pirit one) one) 00:00: - [facility] 00 [facility] Britany Kenfernandez 2019- No 40mg Common (Triamcinol (Triamcinol 2-03 S pirit one) one) 00:00: - [facility]I 00 [facility] Britany Kenfernandez 2019-1 No 40mg Common (Triamcinol (Triamcinol 2-03 S pirit one) one) 00:00: - [facility] 00 [facility] Britany Kenfernandez 2019-1 No 40mg Common (Triamcinol (Triamcinol 2-03 S pirit one) one) 00:00: - [facility]I 00 [facility] Britany Kenfernandez 2019- No 40mg Common (Triamcinol (Triamcinol 2-03 S pirit one) one) 00:00: - [facility]I 00 [facility] Britany Kenalog 2018- No 40mg Common (Triamcinol (Triamcinol 0-22 S pirit one) one) 00:00: - [facility]I 00 [facility] Britany Kenalog 2018- No 40mg Common (Triamcinol (Triamcinol 0-22 S pirit one) one) 00:00: - [facility] 00 [facility] Kenfernandez 2018- No 40mg Common (Triamcinol (Triamcinol 0-22 S pirit one) one) 00:00: - [facility]I 00 [facility] Kenfernandez 2018- No 40mg Common (Triamcinol (Triamcinol 0-22 S pirit one) one) 00:00: - [facility] 00 [facility] Kenfernandez 2018- No 40mg Common (Triamcinol (Triamcinol 0-22 S pirit one) one) 00:00: - [facility]I 00 [facility] Kenfernandez 2018- No 40mg Common (Triamcinol (Triamcinol 0-22 S pirit one) one) 00:00: - [facility]I 00 [facility] Kenfernandez 2018- No 40mg Common (Triamcinol (Triamcinol 0-22 S pirit one) one) 00:00: - [facility]I 00 [facility] Britany Kenfernandez 2018- No 40mg Common (Triamcinol (Triamcinol 0-22 S pirit one) one) 00:00: - [facility]I 00 [facility] Britany Kenfernandez 2018- No 40mg [facility] (Triamcinol (Triamcinol 0-22 S pirit one) one) 00:00: - [facility] 00 [facility] Kenfernandez 2019- No 40mg Common (Triamcinol (Triamcinol 0-22 S pirit one) one) 00:00: - [facility] 00 [facility] Kenalog 2018- No 40mg Common (Triamcinol (Triamcinol 0-22 S pirit one) one) 00:00: - [facility] 00 [facility] health Kenalog 2019- No 40mg Common (Triamcinol (Triamcinol 0-22 S pirit one) one) 00:00: - [facility] 00 [facility] Britany Kenalog 2019- No 40mg Common (Triamcinol (Triamcinol 0-22 S pirit one) one) 00:00: - [facility] 00 [facility] Britany Kenalog 2019- No 40mg Common (Triamcinol (Triamcinol 0-22 S pirit one) one) 00:00: - [facility] 00 [facility] Britany Kenfernandez 2019- No 40mg Common (Triamcinol (Triamcinol 0-22 S pirit one) one) 00:00: - [facility] 00 [facility] Britany Kenfernandez 2019- No 40mg Common (Triamcinol (Triamcinol 0-22 S pirit one) one) 00:00: - [facility] 00 [facility] Britany Kenfernandez 2019- No 40mg Common (Triamcinol (Triamcinol 0-22 S pirit one) one) 00:00: - [facility] 00 [facility] Britany Kenfernandez 2019- No 40mg Common (Triamcinol (Triamcinol 0-22 S pirit one) one) 00:00: - [facility] 00 [facility] Britany Kenfernandez 2019- No 40mg Common (Triamcinol (Triamcinol 0-22 S pirit one) one) 00:00: - [facility] 00 [facility] Britany Kenfernandez 2019- No 40mg Common (Triamcinol (Triamcinol 0-22 S pirit one) one) 00:00: - [facility] 00 [facility] Britany Kenfernandez 2019- No 40mg Common (Triamcinol (Triamcinol 0-22 S pirit one) one) 00:00: - [facility] 00 [facility] Britany Kenfernandez 2019- No 40mg Common (Triamcinol (Triamcinol 0-22 S pirit one) one) 00:00: - [facility] 00 [facility] Britany Kenalog 2019- No 40mg Common (Triamcinol (Triamcinol 0-22 S pirit one) one) 00:00: - [facility] 00 [facility] Britany Garg 2018- No 40mg Common (Triamcinol (Triamcinol 0-22 S pirit one) one) 00:00: - [facility] 00 [facility] Britany Garg 2018- No 40mg Common (Triamcinol (Triamcinol 0-22 S pirit one) one) 00:00: - [facility] Britany Garg 2018- No 40mg Common (Triamcinol (Triamcinol 0-22 S pirit one) one) 00:00: - [facility] 00 [facility] Britany Garg 2018- No 40mg Common (Triamcinol (Triamcinol 0-22 S pirit one) one) 00:00: - [facility] medroxyPROG 2019- No 150mg Univ ers ESTERone 06-07 ity of (DEPO-PROVE 16:30: 15:23 [place] RA) 00 :00 Medical injection Branch 150 mg medroxyPROG 2019- No 150mg 150 mg, U nivers ESTERone 06-07 Intramuscu ity of (DEPO-PROVE 16:30: 15:23 lar, ONCE, [place] RA) 00 :00 1 dose, Medical injection Fri Branch 150 mg 06/07/19 at 1130, Routine plecanatide Yes Take by Uni vers (TRULANCE) 8-16 mouth. ity of 3 mg Tab 15:15: [address] plecanatide Yes Take by Uni vers (TRULANCE) 8-16 mouth. ity of 3 mg Tab 15:15: [address] plecanatide Yes Take by Uni vers (TRULANCE) 8-16 mouth. ity of 3 mg Tab 15:15: [address] plecanatide Yes Take by Uni vers (TRULANCE) 8-16 mouth. ity of 3 mg Tab 15:15: [address] Branch linaCLOtide Yes Univer s (LINZESS) 7-20 ity of 72 mcg Cap 00:00: [place] [address] Medical Branch linaCLOtide 2018- Yes Univer s (LINZESS) 7-20 ity of 72 mcg Cap 00:00: [place] [address] [facility] Branch linaCLOtide 2019-0 Yes Univer s (LINZESS) 7-20 ity of 72 mcg Cap 00:00: [place] [address] [facility] Branch linaCLOtide 2019-0 Yes Univer s (LINZESS) 7-20 ity of 72 mcg Cap 00:00: [place] [address] [facility] Branch linaCLOtide 2019-0 Yes Univer s (LINZESS) 7-20 ity of 72 mcg Cap 00:00: [place] [address] [facility] Branch linaCLOtide 2019-0 Yes Univer s (LINZESS) 7-20 ity of 72 mcg Cap 00:00: [place] [address] [facility] Branch linaCLOtide 2019-0 Yes Univer s (LINZESS) 7-20 ity of 72 mcg Cap 00:00: [place] [address] [facility] Branch linaCLOtide 2019-0 Yes Univer s (LINZESS) 7-20 ity of 72 mcg Cap 00:00: [place] [address] [facility] Branch linaCLOtide 2019-0 Yes Univer s (LINZESS) 7-20 ity of 72 mcg Cap 00:00: [place] [address] [facility] Branch linaCLOtide 2019-0 Yes Univer s (LINZESS) 7-20 ity of 72 mcg Cap 00:00: [place] [address] [facility] Branch linaCLOtide 2019-0 Yes Univer s (LINZESS) 7-20 ity of 72 mcg Cap 00:00: [place] [address] [facility] Branch linaCLOtide 2019-0 Yes Univer s (LINZESS) 7-20 ity of 72 mcg Cap 00:00: [place] [address] [facility] Branch linaCLOtide 2019-0 Yes Univer s (LINZESS) 7-20 ity of 72 mcg Cap 00:00: [place] [address] [facility] Branch linaCLOtide 2019-0 Yes Univer s (LINZESS) 7-20 ity of 72 mcg Cap 00:00: [place] [address] [facility] Branch linaCLOtide 2019-0 Yes Univer s (LINZESS) 7-20 ity of 72 mcg Cap 00:00: [place] [address] [facility] Branch linaCLOtide 2019-0 Yes Univer s (LINZESS) 7-20 ity of 72 mcg Cap 00:00: [place] [address] [facility] Branch linaCLOtide 2019-0 Yes Univer s (LINZESS) 7-20 ity of 72 mcg Cap 00:00: [place] [address] [facility] Branch linaCLOtide 2019-0 Yes Univer s (LINZESS) 7-20 ity of 72 mcg Cap 00:00: [place] [address] [facility] Branch linaCLOtide 2019-0 Yes Univer s (LINZESS) 7-20 ity of 72 mcg Cap 00:00: [place] [address] [facility] Branch linaCLOtide 2019-0 Yes Univer s (LINZESS) 7-20 ity of 72 mcg Cap 00:00: [place] [address] [facility] Branch linaCLOtide 2019-0 Yes Univer s (LINZESS) 7-20 ity of 72 mcg Cap 00:00: [place] [address] [facility] Branch linaCLOtide 2019-0 Yes Univer s (LINZESS) 7-20 ity of 72 mcg Cap 00:00: [place] [address] [facility] Branch linaCLOtide 2019-0 Yes Univer s (LINZESS) 7-20 ity of 72 mcg Cap 00:00: [place] [address] [facility] Branch linaCLOtide 2019-0 Yes Univer s (LINZESS) 7-20 ity of 72 mcg Cap 00:00: [place] [address] [facility] Branch linaCLOtide 2019-0 Yes Univer s (LINZESS) 7-20 ity of 72 mcg Cap 00:00: [place] [address] [facility] Branch linaCLOtide 2019-0 Yes Univer s (LINZESS) 7-20 ity of 72 mcg Cap 00:00: [place] [address] [facility] Branch linaCLOtide 2019-0 Yes Univer s (LINZESS) 7-20 ity of 72 mcg Cap 00:00: [place] [address] [facility] Branch linaCLOtide 2019-0 Yes Univer s (LINZESS) 7-20 ity of 72 mcg Cap 00:00: [place] [address] [facility] Branch linaCLOtide 2019-0 Yes Univer s (LINZESS) 7-20 ity of 72 mcg Cap 00:00: [place] [address] [facility] Branch linaCLOtide 2019-0 Yes Univer s (LINZESS) 7-20 ity of 72 mcg Cap 00:00: [place] [address] [facility] Branch linaCLOtide 2019-0 Yes Univer s (LINZESS) 7-20 ity of 72 mcg Cap 00:00: [place] [address] [facility] Branch linaCLOtide 2019-0 Yes Univer s (LINZESS) 7-20 ity of 72 mcg Cap 00:00: [place] [address] [facility] Branch linaCLOtide 2019-0 Yes Univer s (LINZESS) 7-20 ity of 72 mcg Cap 00:00: [place] [address] [facility] Branch linaCLOtide 2019-0 Yes Univer s (LINZESS) 7-20 ity of 72 mcg Cap 00:00: [place] [address] [facility] Branch linaCLOtide 2019-0 Yes Univer s (LINZESS) 7-20 ity of 72 mcg Cap 00:00: [place] [facility] linaCLOtide 2019-0 Yes Univer s (LINZESS) 7-20 ity of 72 mcg Cap 00:00: [place] [address] [facility] Branch linaCLOtide 2019-0 Yes Univer s (LINZESS) 7-20 ity of 72 mcg Cap 00:00: [place] [address] [facility] Branch linaCLOtide 2019-0 Yes Univer s (LINZESS) 7-20 ity of 72 mcg Cap 00:00: [place] [address] [facility] Branch linaCLOtide 2019-0 Yes Univer s (LINZESS) 7-20 ity of 72 mcg Cap 00:00: [place] [address] [facility] Branch linaCLOtide 2019-0 Yes Univer s (LINZESS) 7-20 ity of 72 mcg Cap 00:00: [place] [address] [facility] Branch linaCLOtide 2019-0 Yes Univer s (LINZESS) 7-20 ity of 72 mcg Cap 00:00: [place] [address] [facility] Branch linaCLOtide 2019-0 Yes Univer s (LINZESS) 7-20 ity of 72 mcg Cap 00:00: [place] [address] [facility] Branch linaCLOtide 2019-0 Yes Univer s (LINZESS) 7-20 ity of 72 mcg Cap 00:00: [place] [address] [facility] Branch linaCLOtide 2019-0 Yes Univer s (LINZESS) 7-20 ity of 72 mcg Cap 00:00: [place] [address] [facility] Branch linaCLOtide 2019-0 Yes Univer s (LINZESS) 7-20 ity of 72 mcg Cap 00:00: [place] [address] [facility] Branch linaCLOtide 2019-0 Yes Univer s (LINZESS) 7-20 ity of 72 mcg Cap 00:00: [place] [address] [facility] Branch linaCLOtide 2019-0 Yes Univer s (LINZESS) 7-20 ity of 72 mcg Cap 00:00: [place] [address] [facility] Branch linaCLOtide 2019-0 Yes Univer s (LINZESS) 7-20 ity of 72 mcg Cap 00:00: [place] [address] [facility] Branch metroNIDAZO 2019-0 Yes [id number] 500mg Take 1 Univers LE (FLAGYL) 6-26 tablet by ity of 500 mg 00:00: mouth 2 [place] tablet 00 (two) Medical times Branch daily. metroNIDAZO 2018- Yes [id number] 500mg Take 1 Univers LE (FLAGYL) 6-26 tablet by ity of 500 mg 00:00: mouth 2 [place] tablet 00 (two) Medical times Branch daily. metroNIDAZO 2018- Yes [id number] 500mg Take 1 Univers LE (FLAGYL) 6-26 tablet by ity of 500 mg 00:00: mouth 2 [place] tablet 00 (two) Medical times Branch daily. metroNIDAZO Yes [id number] 500mg Take 1 Univers LE (FLAGYL) 6-26 tablet by ity of 500 mg 00:00: mouth 2 [place] tablet 00 (two) Medical times Branch daily. metroNIDAZO 2020- No [id number] 500mg Take 1 Univers LE (FLAGYL) 6-26 01-24 tablet by it y of 500 mg 00:00: 00:00 mouth 2 [place] tablet 00 :00 (two) Medical times Branch daily. metroNIDAZO 2020- No [id number] 500mg Take 1 Univers LE (FLAGYL) 6-26 01-24 tablet by it y of 500 mg 00:00: 00:00 mouth 2 [place] tablet 00 :00 (two) Medical times Branch daily. OMEPRAZOLE Yes 40mg Take 40 mg U nivers ORAL 6-19 by mouth. ity of 15:31: [address] ACETAMINOPH Yes Take by Uni vers EN EXTRA 6-19 mouth. ity of STRENGTH 15:31: [address] OMEPRAZOLE Yes 40mg Take 40 mg U nivers ORAL 6-19 by mouth. ity of 15:31: [address] ACETAMINOPH Yes Take by Uni vers EN EXTRA 6-19 mouth. ity of STRENGTH 15:31: [address] OMEPRAZOLE Yes 40mg Take 40 mg U nivers ORAL 6-19 by mouth. ity of 15:31: [address] ACETAMINOPH Yes Take by Uni vers EN EXTRA 6-19 mouth. ity of STRENGTH 15:31: [address] OMEPRAZOLE 2018- Yes 40mg Take 40 mg U nivers ORAL 6-19 by mouth. ity of 15:31: [address] ACETAMINOPH 0 Yes Take by Uni vers EN EXTRA 6-19 mouth. ity of STRENGTH 15:31: [address] Branch OMEPRAZOLE 2018-0 Yes 40mg Take 40 mg U nivers ORAL 6-19 by mouth. ity of 15:31: [address] ACETAMINOPH 0 Yes Take by Uni vers EN EXTRA 6-19 mouth. ity of STRENGTH 15:31: [address] Branch OMEPRAZOLE 2018-0 Yes 40mg Take 40 mg U nivers ORAL 6-19 by mouth. ity of 15:31: [address] ACETAMINOPH Yes Take by Uni vers EN EXTRA 6-19 mouth. ity of STRENGTH 15:31: [address] Branch OMEPRAZOLE 0 Yes 40mg Take 40 mg U nivers ORAL 6-19 by mouth. ity of 15:31: [address] ACETAMINOPH Yes Take by Uni vers EN EXTRA 6-19 mouth. ity of STRENGTH 15:31: [address] OMEPRAZOLE Yes 40mg Take 40 mg U nivers ORAL 6-19 by mouth. ity of 15:31: [address] ACETAMINOPH Yes Take by Uni vers EN EXTRA 6-19 mouth. ity of STRENGTH 15:31: [address] OMEPRAZOLE 0 Yes 40mg Take 40 mg U nivers ORAL 6-19 by mouth. ity of 15:31: [address] OMEPRAZOLE Yes 40mg Take 40 mg U nivers ORAL 6-19 by mouth. ity of 15:31: [address] OMEPRAZOLE 0 Yes 40mg Take 40 mg U nivers ORAL 6-19 by mouth. ity of 15:31: [address] OMEPRAZOLE 0 Yes 40mg Take 40 mg U nivers ORAL 6-19 by mouth. ity of 15:31: [address] OMEPRAZOLE 2018-0 Yes 40mg Take 40 mg U nivers ORAL 6-19 by mouth. ity of 15:31: [address] OMEPRAZOLE 0 Yes 40mg Take 40 mg U nivers ORAL 6-19 by mouth. ity of 15:31: [address] OMEPRAZOLE 2018-0 Yes 40mg Take 40 mg U nivers ORAL 6-19 by mouth. ity of 15:31: [address] OMEPRAZOLE 0 Yes 40mg Take 40 mg U nivers ORAL 6-19 by mouth. ity of 15:31: [address] OMEPRAZOLE 0 Yes 40mg Take 40 mg U nivers ORAL 6-19 by mouth. ity of 15:31: [address] OMEPRAZOLE Yes 40mg Take 40 mg U nivers ORAL 6-19 by mouth. ity of 15:31: [address] OMEPRAZOLE 0 Yes 40mg Take 40 mg U nivers ORAL 6-19 by mouth. ity of 15:31: [address] OMEPRAZOLE Yes 40mg Take 40 mg U nivers ORAL 6-19 by mouth. ity of 15:31: [address] ACETAMINOPH Yes Take by Uni vers EN EXTRA 6-19 mouth. ity of STRENGTH 15:31: [address] OMEPRAZOLE Yes 40mg Take 40 mg U nivers ORAL 6-19 by mouth. ity of 15:31: [address] ACETAMINOPH Yes Take by Uni vers EN EXTRA 6-19 mouth. ity of STRENGTH 15:31: [address] OMEPRAZOLE Yes 40mg Take 40 mg U nivers ORAL 6-19 by mouth. ity of 15:31: [address] ACETAMINOPH Yes Take by Uni vers EN EXTRA 6-19 mouth. ity of STRENGTH 15:31: [address] OMEPRAZOLE Yes 40mg Take 40 mg U nivers ORAL 6-19 by mouth. ity of 15:31: [address] ACETAMINOPH Yes Take by Uni vers EN EXTRA 6-19 mouth. ity of STRENGTH 15:31: [address] OMEPRAZOLE 0 Yes 40mg Take 40 mg U nivers ORAL 6-19 by mouth. ity of 15:31: [address] ACETAMINOPH Yes Take by Uni vers EN EXTRA 6-19 mouth. ity of STRENGTH 15:31: [address] No known No Univers medications ity of [facility] Diazepam Diazepam Yes Severino 1 tablet C ommon Smart as needed Spirit (ok to - [facility] fill on or [facility]20[facility] Linzess Linzess Yes Severino 1 capsule Co mmon Smart [facility] - [facility] Omeprazole Omeprazole Yes Severino 1 tablet Common Smart Spirit [facility] Amitriptyli Amitriptyli Yes Severino 1 tablet Common ne HCl ne HCl Smart at bedtime Spir it - [facility] Trazodone Trazodone Yes Severino Take 1/2 Common HCl HCl Smart tab QHS Spirit - [facility] Imitrex Imitrex Yes Severino 1 tablet Com mon Smart at least 2 Spirit hours - [facility]I between St doses as [facility] Omeprazole Omeprazole No 1{table QD [...] HCl 20 MG e HCl 20 MG Hyoscyamine Hyoscyamine No 1{table TID Hyoscyamin Sulfate Sulfate t_as_ne e Sulfate 0.125 MG 0.125 MG eded} 0.125 MG Ondansetron Ondansetron No 1{table QD Ondansetro HCl 4 MG HCl 4 MG t_as_ne n HCl 4 MG eded} Emgality Emgality No Emgality 120 MG/ML 120 MG/ML 120 MG/ML Ondansetron Ondansetron No Ondansetro HCl 4 MG HCl 4 MG n HCl 4 MG Pantoprazol Pantoprazol No 1{table QD Pantoprazo e Sodium 40 e Sodium 40 t} le Sodium MG MG 40 MG Mesalamine Mesalamine No 2{table QD Mesalamine 1.2 GM 1.2 GM ts_with 1.2 GM _a_meal } Immunizations Ordered Immunization Filled Immunization Date Status Commen ts Source Name Name Britany Garg 2019-09-24 Completed [facility] (Triamcinolone) (Triamcinolone) 08:52:00 - I [facility] Britany Garg 2019-09-24 Completed [facility] (Triamcinolone) (Triamcinolone) 08:52:00 - I [facility] Britany Garg 2019-09-24 Completed [facility] (Triamcinolone) (Triamcinolone) 08:52:00 - [facility] 2019-09-24 Completed [facility] (Triamcinolone) (Triamcinolone) 08:52:00 - [facility] 2019-08-13 Completed [facility] (Triamcinolone) (Triamcinolone) 09:33:00 - [facility] 2019-08-13 Completed [facility] (Triamcinolone) (Triamcinolone) 09:33:00 - [facility] 2019-08-13 Completed [facility] (Triamcinolone) (Triamcinolone) 09:33:00 - [facility] 2019-08-13 Completed [facility] (Triamcinolone) (Triamcinolone) 09:33:00 [facility] Vital Signs Vital Name Observation Time Observation Value Comments Source height 2022-10-12 16:00:00 63 [in_i] [facility] weight 2022-10-12 16:00:00 155 [lb_av] [facility] temperature 2022-10-12 16:00:00 98 [degF] [facility] bmi 2022-10-12 16:00:00 27.45 kg/m2 [facility] blood pressure 2022-10-12 16:00:00 132 mm[Hg] [facility] - systolic [facility] blood pressure 2022-10-12 16:00:00 76 mm[Hg] [facility] - diastolic [facility] height 2022-08-24 10:50:00 63 [in_i] [facility] weight 2022-08-24 10:50:00 160.4 [lb_av] [facility] temperature 2022-08-24 10:50:00 97.4 [degF] [facility] bmi 2022-08-24 10:50:00 28.41 kg/m2 Common S pirit - [facility] oximetry 2022-08-24 10:50:00 98 % Common S pirit - [facility] respiratory rate 2022-08-24 10:50:00 18 /min Comm on [facility] blood pressure 2022-08-24 10:50:00 134 mm[Hg] [facility] - systolic [facility] blood pressure 2022-08-24 10:50:00 67 mm[Hg] [facility] - diastolic [facility] height 2022-08-16 16:10:00 63 [in_i] Common S pirit [facility] weight 2022-08-16 16:10:00 161.7 [lb_av] Common [facility] temperature 2022-08-16 16:10:00 98.0 [degF] [facility] bmi 2022-08-16 16:10:00 28.64 kg/m2 [facility] oximetry 2022-08-16 16:10:00 100 % Common S pirit [facility] respiratory rate 2022-08-16 16:10:00 18 /min Comm on [facility] blood pressure 2022-08-16 16:10:00 137 mm[Hg] [facility] - systolic [facility] blood pressure 2022-08-16 16:10:00 85 mm[Hg] [facility] - diastolic [facility] height 2022-07-26 14:00:00 63 [in_i] Common S pirit - [facility] weight 2022-07-26 14:00:00 159 [lb_av] [facility] temperature 2022-07-26 14:00:00 97.4 [degF] Common S pirit [facility] bmi 2022-07-26 14:00:00 28.16 kg/m2 Common S pirit [facility] oximetry 2022-07-26 14:00:00 99 % Common S pirit [facility] respiratory rate 2022-07-26 14:00:00 18 /min Comm on [facility] blood pressure 2022-07-26 14:00:00 132 mm[Hg] [facility] - systolic [facility] blood pressure 2022-07-26 14:00:00 76 mm[Hg] [facility] - diastolic [facility] height 2022-07-08 14:00:00 63 [in_i] Common [facility] weight 2022-07-08 14:00:00 161.1 [lb_av] [facility] temperature 2022-07-08 14:00:00 98.2 [degF] Common [facility] bmi 2022-07-08 14:00:00 28.53 kg/m2 [facility] oximetry 2022-07-08 14:00:00 96 % [facility] respiratory rate 2022-07-08 14:00:00 18 /min Comm on [facility] blood pressure 2022-07-08 14:00:00 131 mm[Hg] [facility] - systolic [facility] blood pressure 2022-07-08 14:00:00 61 mm[Hg] [facility] - diastolic [facility] height 2022-05-20 08:00:00 63 [in_i] Common [facility] weight 2022-05-20 08:00:00 160 [lb_av] Common S pirit [facility] temperature 2022-05-20 08:00:00 98 [degF] Common S pirit [facility] bmi 2022-05-20 08:00:00 28.34 kg/m2 Common S pirit [facility] blood pressure 2022-05-20 08:00:00 120 mm[Hg] [facility] - systolic [facility] blood pressure 2022-05-20 08:00:00 72 mm[Hg] [facility] - diastolic [facility] height 2022-04-28 14:30:00 63 [in_i] Common S pirit [facility] weight 2022-04-28 14:30:00 157.8 [lb_av] Common [facility] temperature 2022-04-28 14:30:00 98.0 [degF] Common S pirit [facility] bmi 2022-04-28 14:30:00 27.95 kg/m2 Common [facility] oximetry 2022-04-28 14:30:00 98 % [facility] 2022-[facility]-28 14:30:00 18 /min Comm on [facility] blood pressure 2022-04-28 14:30:00 126 mm[Hg] [facility] - systolic [facility] blood pressure 2022-04-28 14:30:00 79 mm[Hg] [facility] - diastolic [facility] height 2022-03-30 14:00:00 63 [in_i] [facility] weight 2022-03-30 14:00:00 156.4 [lb_av] [facility] temperature 2022-03-30 14:00:00 98.6 [degF] [facility] bmi 2022-03-30 14:00:00 27.7 kg/m2 [facility] oximetry 2022-03-30 14:00:00 98 % [facility] respiratory rate 2022-03-30 14:00:00 16 /min Comm on [facility] blood pressure 2022-03-30 14:00:00 120 mm[Hg] [facility] - systolic [facility] blood pressure 2022-03-30 14:00:00 84 mm[Hg] [facility] - diastolic [facility] height 2022-02-24 07:50:00 63 [in_i] [facility] weight 2022-02-24 07:50:00 164 [lb_av] [facility] temperature 2022-02-24 07:50:00 98 [degF] Common S pirit [facility] bmi 2022-02-24 07:50:00 29.05 kg/m2 Common [facility] - [facility] blood pressure 2022-02-24 07:50:00 121 mm[Hg] [facility] - systolic [facility] blood pressure 2022-02-24 07:50:00 75 mm[Hg] [facility] - diastolic [facility] height 2022-01-19 11:00:00 63 [in_i] Common [facility] - [facility] weight 2022-01-19 11:00:00 165.8 [lb_av] [facility] temperature 2022-01-19 11:00:00 97.5 [degF] [facility] bmi 2022-01-19 11:00:00 29.37 kg/m2 [facility] oximetry 2022-01-19 11:00:00 100 % [facility] respiratory rate 2022-01-19 11:00:00 17 /min Comm on [facility] - [facility] blood pressure 2022-01-19 11:00:00 111 mm[Hg] [facility] - systolic [facility] blood pressure 2022-01-19 11:00:00 74 mm[Hg] [facility] - diastolic [facility] height 2021-12-22 15:50:00 63 [in_i] Common S pirit [facility] weight 2021-12-22 15:50:00 160 [lb_av] Common S pirit [facility] temperature 2021-12-22 15:50:00 98 [degF] Common S pirit [facility] bmi 2021-12-22 15:50:00 28.34 kg/m2 Common S pirit [facility] height 2021-09-22 15:40:00 63 [in_i] Common S pirit [facility] weight 2021-09-22 15:40:00 160 [lb_av] Common S pirit [facility] temperature 2021-09-22 15:40:00 97.4 [degF] Common S [facility] - [facility] bmi 2021-09-22 15:40:00 28.34 kg/m2 Common [facility] - [facility] blood pressure 2021-09-22 15:40:00 125 mm[Hg] [facility] - systolic [facility] blood pressure 2021-09-22 15:40:00 75 mm[Hg] [facility] - diastolic [facility] height 2021-08-05 08:20:00 63 [in_i] [facility] weight 2021-08-05 08:20:00 174 [lb_av] [facility] bmi 2021-08-05 08:20:00 30.82 kg/m2 [facility] Systolic blood 2021-08-04 19:00:00 125 mm[Hg] Univer [facility] Diastolic blood 2021-08-04 19:00:00 85 mm[Hg] Unive rsity [facility] Heart rate 2021-08-04 19:00:00 69 /min [facility] Respiratory rate 2021-08-04 19:00:00 16 /min [facility] 2021-08-04 19:00:00 97 /min [facility] Arterial blood by [facility] Pulse oximetry Branch Body temperature 2021-08-04 17:00:00 36.72 Liya [facility] ersity [facility] Body height 2021-08-04 16:09:00 160 cm [facility] Body weight 2021-08-04 16:09:00 72.576 kg [facility] BMI 2021-08-04 16:09:00 28.34 kg/m2 [facility] Systolic blood 2021-05-20 17:04:00 134 mm[Hg] Univer [facility]ity [facility] Diastolic blood 2021-05-20 17:04:00 87 mm[Hg] Unive rsity of pressure [facility] Heart rate 2021-05-20 17:04:00 101 /min [facility] Body temperature 2021-05-20 17:04:00 37.11 Liya [facility] Respiratory rate 2021-05-20 17:04:00 18 /min [facility] Body weight 2021-05-20 17:04:00 81.647 kg [facility] BMI 2021-05-20 17:04:00 31.89 kg/m2 [facility] Oxygen saturation in 2021-05-20 17:04:00 98 /min [facility] of Arterial blood by [facility] gabriel Pulse oximetry Branch Systolic blood 2021-01-21 21:10:00 124 mm[Hg] [facility] [place] [facility] Diastolic blood 2021-01-21 21:10:00 63 mm[Hg] [facility] [place] [facility] Heart rate 2021-01-21 21:10:00 98 /min [facility] [place] [facility] Body temperature 2021-01-21 21:10:00 37.78 Liya [facility] [place] [facility] Respiratory rate 2021-01-21 21:10:00 20 /min [facility] [place] [facility] Oxygen saturation in 2021-01-21 21:10:00 100 /min [facility] Arterial blood by [facility] Pulse oximetry Branch Body weight 2021-01-21 18:05:00 81.647 kg [facility] [place] [facility] BMI 2021-01-21 18:05:00 31.89 kg/m2 [facility] [place] [facility] Systolic blood 2020-10-20 15:50:00 123 mm[Hg] [facility] [place] [facility] Diastolic blood 2020-10-20 15:50:00 81 mm[Hg] [facility] [place] [facility] Heart rate 2020-10-20 15:50:00 88 /min [facility] [place] [facility] Respiratory rate 2020-10-20 15:50:00 18 /min [facility] [place] [facility] Oxygen saturation in 2020-10-20 15:50:00 97 /min [facility] Arterial blood by [facility] Pulse oximetry Branch Body temperature 2020-10-20 13:37:00 36.22 Liya [facility] [place] [facility] Body height 2020-10-20 13:37:00 160 cm [facility] [place] [facility] Body weight 2020-10-20 13:37:00 86.183 kg [facility] [place] [facility] BMI 2020-10-20 13:37:00 33.66 kg/m2 [facility] [place] [facility] Systolic blood 2020-07-15 23:05:00 148 mm[Hg] [facility] [place] [facility] Diastolic blood 2020-07-15 23:05:00 100 mm[Hg] [facility] [place] [facility] Heart rate 2020-07-15 23:05:00 88 /min [facility] [place] [facility] Body temperature 2020-07-15 23:05:00 37.17 Liya [facility] [place] [facility] Respiratory rate 2020-07-15 23:05:00 18 /min [facility] [place] [facility] Oxygen saturation in 2020-07-15 23:05:00 99 /min [facility] Arterial blood by [facility] gabriel Pulse oximetry Branch Body weight 2020-07-15 21:28:00 77.111 kg [facility] [place] [facility] BMI 2020-07-15 21:28:00 30.11 kg/m2 [facility] [place] [facility] Systolic blood 2020-01-03 19:26:00 121 mm[Hg] [facility] [place] [facility] Diastolic blood 2020-01-03 19:26:00 74 mm[Hg] [facility] [place] [facility] Heart rate 2020-01-03 19:26:00 85 /min [facility] [place] [facility] Respiratory rate 2020-01-03 19:26:00 16 /min [facility] [place] [facility] Oxygen saturation in 2020-01-03 19:26:00 98 /min [facility] Arterial blood by [facility] Pulse oximetry Branch Body temperature 2020-01-03 14:01:00 37.22 Liya [facility] [place] [facility] Body height 2020-01-03 14:01:00 160 cm [facility] [place] [facility] Body weight 2020-01-03 14:01:00 77.111 kg [facility] [place] [facility] BMI 2020-01-03 14:01:00 30.11 kg/m2 [facility] [place] [facility] Systolic blood 2019-11-29 23:03:00 127 mm[Hg] [facility] [place] [facility] Diastolic blood 2019-11-29 23:03:00 96 mm[Hg] [facility] [place] [facility] Heart rate 2019-11-29 23:03:00 86 /min [facility] [place] [facility] Body temperature 2019-11-29 23:03:00 36.83 Liya [facility] [place] [facility] Respiratory rate 2019-11-29 23:03:00 18 /min [facility] [place] [facility] Body height 2019-11-29 23:03:00 160 cm [facility] [place] [facility] Body weight 2019-11-29 23:03:00 76.658 kg [facility] [place] [facility] BMI 2019-11-29 23:03:00 29.94 kg/m2 [facility] [place] [facility] Systolic blood 2019-11-15 22:16:00 129 mm[Hg] [facility] [place] [facility] Diastolic blood 2019-11-15 22:16:00 86 mm[Hg] [facility] [place] [facility] Heart rate 2019-11-15 22:16:00 82 /min [facility] [place] [facility] Body temperature 2019-11-15 22:16:00 36.78 Liya [facility] [place] [facility] Respiratory rate 2019-11-15 22:16:00 18 /min [facility] [place] [facility] Body height 2019-11-15 22:16:00 160.7 cm [facility] [place] [facility] Body weight 2019-11-15 22:16:00 77.111 kg [facility] [place] [facility] BMI 2019-11-15 22:16:00 29.88 kg/m2 [facility] [place] [facility] Systolic blood 2019-06-07 15:13:00 110 mm[Hg] [facility] [place] [facility] Diastolic blood 2019-06-07 15:13:00 72 mm[Hg] [facility] [place] [facility] Heart rate 2019-06-07 15:13:00 77 /min [facility] [place] [facility] Body temperature 2019-06-07 15:13:00 36.83 Liya [facility] [place] [facility] Respiratory rate 2019-06-07 15:13:00 20 /min [facility] [place] [facility] Body height 2019-06-07 15:13:00 160 cm [facility] [place] [facility] Body weight 2019-06-07 15:13:00 67.495 kg [facility] [place] [facility] BMI 2019-06-07 15:13:00 26.36 kg/m2 [facility] [place] [facility] Procedures Procedure Date / Time Performing Clinician Source Performed CT ABDOMEN PELVIS W 2021-08-04 16:53:22 Armond Moore [facility] CONTRAST Medical Branch LIPASE 2021-08-04 16:37:00 Singer [facility] COMP. METABOLIC PANEL 2021-08-04 16:37:00 Armond Moore [facility] ([id number]) Medical Branch CBC WITH DIFF 2021-08-04 16:37:00 Singer [facility] URINALYSIS 2021-08-04 16:37:00 Garfield [facility] CONSENT/REFUSAL FOR 2021-08-04 15:58:11 Doctor Unassigned, No [facility] [place] DIAGNOSIS AND TREATMENT Name [facility] CT KNEE RIGHT WO 2021-05-20 19:15:50 Blaine Perez [facility] XR KNEE 3 VW RIGHT 2021-05-20 17:34:16 Sandee Guillen [facility] NOTICE OF PRIVACY 2021-05-20 17:00:21 Doctor Unassigned, No Univ ersity [facility] PRACTICES Name Medical Branch CONSENT/REFUSAL FOR 2021-05-20 17:00:06 Doctor Unassigned, No [facility] [place] DIAGNOSIS AND TREATMENT Name [facility] URINALYSIS 2021-01-21 20:55:00 Sandee Guillen [facility] BASIC METABOLIC PANEL 2021-01-21 19:37:00 Sandee Guillen [facility] [place] (NA, K, CL, CO2, Medical Branch GLUCOSE, BUN, CREATININE, CA) CBC WITH DIFF 2021-01-21 19:37:00 Sandee Guillen [facility] XR CHEST 1 VW 2021-01-21 18:33:12 Sandee Guillen [facility] COVID-19 (ID NOW RAPID 2021-01-21 18:09:00 Sandee [facility]illen [facility] [place] [facility] Medical Branch CONSENT/REFUSAL FOR 2021-01-21 17:52:09 Doctor Unassigned, No [facility] [place] DIAGNOSIS AND TREATMENT Name Medical Branch CT ANGIOGRAM NECK 2020-10-20 14:59:45 Aris Hill [facility] POCT TEST 2020-10-20 14:00:00 Aris Hill [facility] HEPATIC FUNCTION PANEL 2020-10-20 13:57:00 Aris Hill [facility] ([id number]) (ALB,T.PRO,BILI Medical Branch T,BU/BC,ALT,AST,ALK PHOS) BASIC METABOLIC PANEL 2020-10-20 13:57:00 Aris Hill [facility] (NA, K, CL, CO2, Medical Branch GLUCOSE, BUN, CREATININE, CA) CBC WITH DIFF 2020-10-20 13:57:00 Aris Hill [place] o f [facility] PROTHROMBIN TIME / INR 2020-10-20 13:57:00 Aris Hill [facility] ACTIVATED PARTIAL 2020-10-20 13:57:00 Aris Hill [facility] THRMPLAS [facility] NOTICE OF PRIVACY 2020-10-20 13:42:58 Doctor Unassigned, No [facility] [place] CONSENT/REFUSAL FOR 2020-10-20 13:34:05 [facility], [facility] Name [facility] RAPID STREP SCREEN FOR 2020-07-15 21:57:00 Clarence Weiss [facility] GROUP A [facility] NOTICE OF PRIVACY 2020-07-15 21:13:13 Doctor Unassigned, No [facility] CONSENT/REFUSAL FOR 2020-07-15 21:12:59 Doctor Unassigned, No [facility]REATMENT Name [facility] LAPAROSCOPIC TOTAL 2020-01-03 14:57:00 Sondra Chavira [facility] ABDOMINAL HYSTERECTOMY Medical B ranch CYSTOSCOPY 2020-01-03 14:57:00 Sondra Chavira [facility] SALPINGECTOMY 2020-01-03 14:57:00 Sondra Chavira [facility] BASIC METABOLIC PANEL 2020-01-03 14:28:00 Carmen Kennedy [facility] (NA, K, CL, CO2, Medical Branch GLUCOSE, BUN, CREATININE, CA) CBC WITH DIFFERENTIAL 2020-01-03 14:28:00 Brent Carmen [facility] HB ABO GROUPING 2020-01-03 14:24:[address] [facility] o f [facility] POCT TEST 2020-01-03 14:00:00 Keith Oliva [facility] DAY SURGERY - ADC 2020-01-03 05:01:00 Doctor Unassigned, [facility] ASSIGNMENT OF BENEFITS 2019-11-15 23:27:34 Doctor Unassigned, No [facility] POCT TEST 2019-11-15 00:00:00 Sondra Chavira [facility] Encounters Start End Encounter Admission Attending Care Care Encounter Source Date/Time Date/Time Type Type Clinicians Facility Department ID 2023-04-05 Outpatient Smart, STLMLC STLC [id number] Common 10:16:00 Severino 77159 [facility] 2022-12-15 Outpatient Smart, STLMLC STLC [id number] Common 08:16:00 Severino 86701 [facility] 2022-10-11 Outpatient Smart, STLMLC STLC [id number] Common 10:39:01 Severino 72031 [facility] 2022-08-22 Outpatient Smart, STLMLC STLMLC [id number] Common 13:19:00 Severino 36832 [facility] 2022-05-18 Outpatient Smart, STLMLC STLMLC [id number] Common 11:08:00 Severino 35037 [facility] 2022-05-06 Outpatient Smart, STLMLC STLMLC [id number] Common 09:31:00 Severino 50640 [facility] 2022-01-20 Outpatient Smart, STLMLC STLMLC [id number] Common 08:29:00 Severino 51876 [facility] 2021-11-17 Outpatient Smart, STLMLC STLC [id number] Common 14:19:29 Severino 64224 [facility] 2021-11-17 Outpatient Smart, STLMLC STLC [id number] Common 13:45:03 Severino 23383 [facility] 2021-11-17 Outpatient Smart, STLMLC STLMLC [id number] Common 12:23:40 Severino 18189 [facility] 2021-11-17 Outpatient Smart, STLMLC STLMLC [id number] Common 12:08:39 Severino 81929 [facility] 2021-11-17 Outpatient Smart, STLMLC STLMLC [id number] Common 11:29:40 Severino 43562 [facility] 2021-11-17 Outpatient Smart, STLMLC STLMLC [id number] Common 11:24:43 Severino 27106 [facility] 2021-11-17 Outpatient Smart, STLMLC STLC [id number] Common 11:24:07 Severino 02916 [facility] 2021-08-24 Emergency [facility] [id number] Univers 06:27:16 [facility]ly [facility] 2021-08-23 Emergency [facility] [id number] Univers 11:45:25 [facility]Formerly [facility] 2021-08-21 Emergency [facility] [id number] Univers 13:31:42 [facility] 2021-08-20 Emergency [facility] [id number] Univers 19:06:29 [facility] 2021-08-19 Inpatient R SONDRA CHAVIRA [facility] FABRIZIO [id number] Univers 12:19:52 SONDRA CHAVIRA [facility] 2022-10-12 2022-10-12 OFFICE STLC STLC [id number] Co mmon 00:00:00 00:00:00 [facility] - CHI LEVEL 4 [facility] 2022-08-30 2022-08-30 (TEL) STLMLC STLMLC [id number] Co mmon 00:00:00 00:00:00 [facility] 2022-08-24 2022-08-24 OFFICE STLMLC STLMLC [id number] Co mmon 00:00:00 00:00:00 VISIT [facility] PT - CHI LEVEL 4 [facility] 2022-08-16 2022-08-16 (TEL) STLMLC STLMLC [id number] Co mmon 00:00:00 00:00:00 [facility] 2022-08-16 2022-08-16 OFFICE STLMLC STLMLC [id number] Co mmon 00:00:00 00:00:00 VISIT EST Spir it PT LEVEL 3 - CHI [facility] 2022-07-26 2022-07-26 OFFICE STLMLC STLMLC [id number] Co mmon 00:00:00 00:00:00 VISIT EST Spir it PT LEVEL 3 - [facility] 2022-07-25 2022-07-25 (TEL) STLMLC STLMLC [id number] Co mmon 00:00:00 00:00:00 [facility] 2022-07-08 2022-07-08 (TEL) STLMLC STLMLC [id number] Co mmon 00:00:00 00:00:00 [facility] 2022-07-08 2022-07-08 OFFICE STLMLC STLMLC [id number] Co mmon 00:00:00 00:00:00 VISIT Spirit ESTAB PT - CHI LEVEL 2 [facility] 2022-06-22 2022-06-22 (TEL) STLMLC STLMLC [id number] Co mmon 00:00:00 00:00:00 [facility] 2022-05-30 2022-05-30 (TEL) STLMLC STLMLC [id number] Co mmon 00:00:00 00:00:00 [facility] 2022-05-20 2022-05-20 OFFICE STLMLC STLMLC [id number] Co mmon 00:00:00 00:00:00 VISIT Spirit ESTAB PT - CHI LEVEL 4 [facility] 2022-04-28 2022-04-28 PREV VISIT STLMLC STLMLC [id number] Common 00:00:00 00:00:00 EST AGE Spirit 18-39 - CHI [facility] 2022-04-28 2022-04-28 (TEL) STLMLC STLMLC [id number] Co mmon 00:00:00 00:00:00 [facility] 2022-03-30 2022-03-30 (TEL) STLMLC STLMLC [id number] Co mmon 00:00:00 00:00:00 [facility] 2022-03-30 2022-03-30 OFFICE STLMLC STLMLC [id number] Co mmon 00:00:00 00:00:00 VISIT [facility] PT - CHI LEVEL 4 [facility] 2022-03-29 2022-03-29 (TEL) STLMLC STLMLC [id number] Co mmon 00:00:00 00:00:00 [facility] 2022-02-24 2022-02-24 OFFICE STLMLC STLMLC [id number] Co mmon 00:00:00 00:00:00 VISIT [facility] PT - CHI LEVEL 4 [facility] 2022-01-26 2022-01-26 (TEL) STLMLC STLMLC [id number] Co mmon 00:00:00 00:00:00 [facility] 2022-01-20 2022-01-20 (TEL) STLMLC STLMLC [id number] Co mmon 00:00:00 00:00:00 [facility] 2022-01-20 2022-01-20 (TEL) STLMLC STLMLC [id number] Co mmon 00:00:00 00:00:00 [facility] 2022-01-19 2022-01-19 (TEL) STLMLC STLMLC [id number] Co mmon 00:00:00 00:00:00 [facility] 2022-01-19 2022-01-19 OFFICE STLMLC STLMLC [id number] Co mmon 00:00:00 00:00:00 VISIT EST Spir it PT LEVEL 3 [facility] 2021-12-23 2021-12-23 (TEL) STLMLC STLMLC [id number] Co mmon 00:00:00 00:00:00 [facility] 2021-12-23 2021-12-23 (TEL) STLMLC STLMLC [id number] Co mmon 00:00:00 00:00:00 Spirit - CHI [facility] 2021-12-22 2021-12-22 OFFICE STLMLC STLMLC [id number] Co mmon 00:00:00 00:00:00 VISIT Spirit ESTAB PT - CHI LEVEL 4 [facility] 2021-12-22 2021-12-22 (TEL) STLMLC STLMLC [id number] Co mmon 00:00:00 00:00:00 [facility] 2021-11-03 2021-11-03 (TEL) STLMLC STLMLC [id number] Co mmon 00:00:00 00:00:00 [facility] 2021-11-02 2021-11-02 (TEL) STLMLC STLMLC [id number] Co mmon 00:00:00 00:00:00 [facility] 2021-09-22 2021-09-22 OFFICE STLMLC STLMLC [id number] Co mmon 00:00:00 00:00:00 VISIT Spirit ESTAB PT - CHI LEVEL 4 [facility] 2021-08-05 2021-08-05 OFFICE STLMLC STLMLC [id number] Co mmon 00:00:00 00:00:00 VISIT EST Spir it PT LEVEL 3 [facility] 2021-08-05 2021-08-05 (TEL) STLMLC STLMLC [id number] Co mmon 00:00:00 00:00:00 [facility] 2021-08-04 2021-08-04 Emergency Moore, [facility] [id number] Univers 11:11:00 14:06:00 Armond Collazo [id number] i ty of [place] [id number] [facility] [id number] [facility] 084 Branch 2021-08-04 2021-08-04 (TEL) STLMLC STLMLC [id number] Co mmon 00:00:00 00:00:00 [facility] 2021-08-03 2021-08-03 (TEL) STLMLC STLMLC [id number] Co mmon 00:00:00 00:00:00 [facility] 2021-06-23 2021-06-23 Outpatient STLMLC STLMLC [id number] Common 00:00:00 00:00:00 [facility] 2021-06-08 2021-06-08 Outpatient STLMLC STLMLC [id number] Common 00:00:00 00:00:00 [facility] 2021-06-07 2021-06-07 Outpatient STLMLC STLMLC [id number] Common 00:00:00 00:00:00 [facility] 2021-06-03 2021-06-03 Outpatient STLMLC STLMLC [id number] Common 00:00:00 00:00:00 [facility] 2021-05-31 2021-05-31 Outpatient STLMLC STLMLC [id number] Common 00:00:00 00:00:00 [facility] 2021-05-31 2021-05-31 Outpatient STLMLC STLMLC [id number] Common 00:00:00 00:00:00 [facility] 2021-05-20 2021-05-20 Emergency Trev, K [facility] [id number] Univers 12:07:00 16:13:00 Sydni Collazo [id number] [facility] [id number] [facility] [id number] [facility] 084 Branch 2021-05-20 2021-05-20 Outpatient STLMLC STLMLC [id number] Common 00:00:00 00:00:00 [facility] 2021-05-20 2021-05-20 Orders Doctor PATRICIA [id number] Univers 00:00:00 00:00:00 Only Unassigned, JAZMINE [id number] ity of [place] [facility] [id number] [facility] [id number] [facility] 009 Branch 2021-03-23 2021-03-23 Outpatient STLMLC STLMLC [id number] Common 00:00:00 00:00:00 [facility] 2021-02-252021-02-25 Outpatient STLMLC STLMLC [id number] Common 00:00:00 00:00:00 [facility] 2021-02-22 2021-02-22 Outpatient STLMLC STLMLC [id number] Common 00:00:00 00:00:00 [facility] 2021-02-18 2021-02-18 Outpatient STLMLC STLMLC [id number] Common 00:00:00 00:00:00 [facility] 2021-01-27 2021-01-27 Outpatient STLMLC STLMLC [id number] Common 00:00:00 00:00:00 [facility] 2021-01-27 2021-01-27 Outpatient STLMLC STLMLC [id number] Common 00:00:00 00:00:00 [facility] 2021-01-21 2021-01-21 Emergency Wilmer [facility] [id number] Univers 13:11:00 16:40:00 Sandee Collazo [id number] [facility] [id number] [facility] [id number] [facility] 084 Branch 2021-01-21 2021-01-21 Emergency X WILMER [facility] ERT [id number] Univers 13:11:00 16:40:[address] [facility] 2021-01-20 2021-01-20 Outpatient STLMLC STLMLC [id number] Common 00:00:00 00:00:00 [facility] 2021-01-20 2021-01-20 Outpatient STLMLC STLMLC [id number] Common 00:00:00 00:00:00 [facility] 2021-01-11 2021-01-11 Patient Dov SCJOHN [id number] Univers 00:00:00 00:00:00 Outreach Tim GILLETTE [id number] i claudio [facility] [id number] [facility] [id number] [facility] dic[facility] [id number] Branch 2020-12-21 2020-12-21 Outpatient STLMLC STLMLC [id number] Common 00:00:00 00:00:00 [facility] 2020-11-12 2020-11-12 Outpatient STLMLC STLMLC [id number] Common 00:00:00 00:00:00 [facility] 2020-11-12 2020-11-12 Outpatient STLMLC STLMLC [id number] Common 00:00:00 00:00:00 [facility] 2020-10-26 2020-10-26 Outpatient STLMLC STLMLC [id number] Common 00:00:00 00:00:00 [facility] 2020-10-20 2020-10-20 Emergency Sergio [facility] [id number] Univers 07:39:00 09:57:00 Aris Lowell [id number] [facility] [id number] [facility] [id number] [place] [address]614 Branch 2020-10-14 2020-10-14 Outpatient STLMLC STLMLC [id number] Common 00:00:00 00:00:00 [facility] 2020-10-06 2020-10-06 Outpatient STLMLC STLMLC [id number] Common 00:00:00 00:00:00 [facility] 2020-10-01 2020-10-01 Outpatient STLMLC STLMLC [id number] Common 00:00:00 00:00:00 [facility] 2020-09-21 2020-09-21 Outpatient STLMLC STLMLC [id number] Common 00:00:00 00:00:00 [facility] 2020-08-05 2020-08-05 Outpatient STLMLC STLMLC [id number] Common 00:00:00 00:00:00 [facility] 2020-08-04 2020-08-04 Outpatient STLMLC STLMLC [id number] Common 00:00:00 00:00:00 [facility] 2020-07-16 2020-07-16 Letter Li Hernandez [id number] Univers 00:00:00 00:00:00 (Out) JAZMINE [id number] it y of [facility] [id number] Jose [id number] [facility] 019 Branch 2020-07-15 2020-07-15 Emergency Isela [facility] [id number] [facility] 16:40:00 18:23:00 Clarence Collazo [id number] i ty of [place] [id number] [facility] [id number] [facility] 084 Branch 2020-07-15 2020-07-15 Outpatient STLMLC STLMLC [id number] Common 00:00:00 00:00:00 [facility] 2020-07-15 2020-07-15 Outpatient STLMLC STLC [id number] Common 00:00:00 00:00:00 [facility] 2020-07-09 2020-07-09 [facility] [id number] Common 08:20:00 08:20:00 [place] [address] Sp[address] [facility] 2020-06-23 2020-06-23 [facility]patient [facility] [id number] Common 13:38:00 13:38:00 [place] [address] Sp[address] [facility] 2020-06-08 2020-06-08 [facility] [id number] Common 16:00:00 16:00:00 [place] [address] Sp[address] [facility] 2020-06-02 2020-06-02 [facility] [id number] Common 16:31:00 16:31:00 [address] [place] [address] Sp[address] Family [facility] 2020-06-02 2020-06-02 [facility] [id number] Common 08:30:00 08:30:00 [place] [address] Sp[address] [facility] 2020-06-01 2020-06-01 Outpatient [facility] [id number] Common 10:46:00 10:46:00 [facility] 2020-04-27 2020-04-27 [facility] [id number] Common 13:00:00 13:00:00 [place] [address] Sp[address] [facility] 2020-03-25 2020-03-25 [facility] [id number] Common 16:45:00 16:45:00 [address] [place] [address] Sp[address] [facility] 2020-02-26 2020-02-26 [facility] [id number] Common 14:15:00 14:15:00 [address] [place] [address] Sp[address] [facility] 2020-01-29 2020-01-29 Telephone Adum, [facility] [id number] [facility] 00:00:00 00:00:00 Alyssa Collazo [id number] ity [id number] [id number] Ut dical nal [address] [place] [address] 2020-01-29 2020-01-29 Refill Doctor [facility] 1.2.840.114 [id number] Univers 00:00:00 00:00:00 Unassigned, [place] [id number] [place] [id number] [place] [id number] Ut dical nal [address] [place] [address] 2020-01-29 2020-01-29 Patient Doctor [facility] [id number] [id number] Univers 00:00:00 00:00:00 Secure Msg Unassigned, [place] [id number] [place] [id number] [place] [id number] Ut dical nal [address] [place] [address] 2020-01-29 2020-01-29 Patient Doctor [facility] [id number] [id number] Univers 00:00:00 00:00:00 Secure Msg Unassigned, [place] [id number] [place] [id number] [place] [id number] Ut dicmd nal [address] [place] [address] 2020-01-29 2020-01-29 Patient Doctor [facility] [id number] [id number] Univers 00:00:00 00:00:00 Secure Msg UnassignedZay [id number] [place] [id number] [id number] Ut dical nal [address] [place] [address] 2020-01-29 2020-01-29 Patient Doctor [place] [id number] [id number] Univers 00:00:00 00:00:00 Secure Msg UnassignedZay [id number] [place] [place] [phone] [address] 2020-01-17 2020-01-17 Telemedici Cait, [facility] 1.2.840.114 [id number] Univers 08:20:35 16:41:15 ne Visit Sondra Collazo 350.1.13.10 [place] [phone] [address] 2020-01-17 2020-01-17 Outpatient R SONDRA CHAVIRA [facility] [place] B [id number] Univers 13:15:00 13:15:[address] [facility] 2020-01-17 2020-01-17 Telephone Cait, [facility] 1.2.840.114 [id number] Univers 00:00:00 00:00:00 Sondra Collazo 350.1.13.10 i [place] [phone] [address] 2020-01-07 2020-01-07 Telephone Cait, [facility] 1.2.840.114 [id number] Univers 00:00:00 00:00:00 Sondra Collazo 350.1.13.10 i [place]2.[place] [phone] [address] 2020-01-06 2020-01-06 Telephone Cait, [facility] 1.2.840.114 [id number] Univers 00:00:00 00:00:00 Sondra Collazo 350.1.13.10 i [place] [phone] [address] 2020-01-03 2020-01-03 [facility] 1.2.840.114 [id number] Univers 08:46:00 15:02:00 Encounter Sondra Collazo 350.1.13.10 [place] [phone] [address] 2019-11-29 2020-01-03 Office [facility] 1.2.840.114 [id number] Univers 15:59:09 14:53:01 Visit Sondra Collazo 350.1.13.10 [place]2.[place] [phone] [address] 2020-01-03 2020-01-03 Orders Doctor BELEM 1.2.840.114 [id number] Univers 00:00:00 00:00:00 Only Unassigned, JAZMINE 350.1.13.10 ity of [place] [facility] 4.2.7.2.686 Jose as [phone] [address] 2019-12-30 2019-12-30 Telephone [facility] 1.2.840.114 [id number] Univers 00:00:00 00:00:00 Sondra Collazo 350.1.13.10 [place] [phone] [address] 2019-12-27 2019-12-27 Outpatient R SONDRA CHAVIRA [facility] B [id number] Univers 16:00:00 16:00:00 SONDRA CHAVIRA itchad of [facility] 2019-12-10 2019-12-10 [facility] 1.2.840.114 [id number] Univers 00:00:00 00:00:00 Management Sondra Collazo 350.1.13.10 [place] [phone] Ut dical [address] 2019-12-05 2019-12-05 Telephone Cait [facility] 1.2.840.114 [id number] Univers 00:00:00 00:00:00 Sondra Collazo 350.1.13.10 i [place]2.[place] [phone] [address] 2019-12-02 2019-12-02 Prep For Brent, [facility] 1.2.840.114 [id number] Univers 00:00:00 00:00:00 Surgery Carmen Zay 350.1.13.10 [place].2.[place] [phone] [address] 2019-12-02 2019-12-02 Telephone Cait [facility] 1.2.840.114 [id number] Univers 00:00:00 00:00:00 Sondra Collazo 350.1.13.10 i [place] 4[place].2.[place] [phone] [address] 2019-12-01 2019-12-01 Case Cait [facility] 1.2.840.114 [id number] Univers 00:00:00 00:00:00 Management Sondra Collazo 350.1.13.10 [place] 4[place].2.[place] [phone] [address] 2019-11-29 2019-11-29 Outpatient R SONDRA CHAVIRA [facility] UT B [id number] Univers 16:00:00 17:56:19 SONDRA CHAVIRA of [facility] 2019-11-29 2019-11-29 Orders Doctor BELEM 1.2.840.114 [id number] Univers 00:00:00 00:00:00 Only Unassigned, JAZMINE 350.1.13.10 [place] [facility] 4.2.7.2.686 Jose as [phone] [address] 2019-11-19 2019-11-19 Telephone Cait [facility] 1.2.840.114 [id number] Univers 00:00:00 00:00:00 Sondra Collazo 350.1.13.10 [place]2.[place] [phone] [facility] [address] [facility] 2019-11-18 2019-11-18 [facility] 1.2.840.114 [id number] Univers 00:00:00 00:00:00 Sondra Collazo 350.1.13.10 [place]2.[place] [phone] [address] 2019-11-15 2019-11-15 Log Preparer Aleena [facility] Main [facility] 1.2.8 40.114 [id number] Univers 17:30:16 17:45:16 Visit Sondra Chavira 350.1.13. 10 [place]2.[place] [phone] [facility] [address] [facility] 2019-11-15 2019-11-15 [facility] 1.2.840.114 [id number] Univers 16:00:41 17:19:59 Visit Sondra Collazo 350.1.13.10 [place] 4[place].2.[place] [phone] [facility] [address] [facility] 2019-11-15 2019-11-15 Orders Doctor BELEM 1.2.840.114 [id number] Univers 00:00:00 00:00:00 Only Unassigned, JAZMINE 350.1.13.10 [place] [facility] 4.2.7.2.686 [place] as [phone] [address] 2019-11-12 2019-11-12 [facility] 1.2.840.114 [id number] Univers 00:00:00 00:00:00 Sondra Collazo 350.1.13.10 [place]2.[place] [phone] [facility] [address] [facility] 2019-09-24 2019-09-24 Outpatient [facility] [id number] Common 08:45:00 08:45:00 [address] [place] [address] [facility] 2019-08-13 2019-08-13 Outpatient [facility] [id number] Common 09:15:00 09:15:00 [address] [place] [address] [facility] 2019-07-24 2019-07-24 [facility] 27 [id number] Common 15:00:00 15:00:00 [address] [place] [address] [facility] 2019-07-08 2019-07-08 Out[facility] 27 [id number] Common 10:56:00 10:56:00 [address] [facility] 2019-06-11 2019-06-11 Out[facility] [id number] Common 10:15:00 10:15:00 [address] [place] [address] [facility] 2019-06-07 2019-06-07 Nurse Nurse, [facility] 1.2.840.114 [id number] [facility] 09:59:31 10:24:10 Visit Sondra Chavira 350.1.13. 10 [facility] 4.2.7.2.686 Joseapryl ellis Adolph [phone] Ut dical [address] 2019-04-30 2019-04-30 Outpatient [facility] [id number] Common 13:30:00 13:30:00 [address] [place] [address] [facility] Results Test Description Test Time Test Comments Results Result Comments Source COMP. METABOLIC PANEL (75448) 2021-08-04 17:13:25 Test Item Value Reference Range Interpretation Comme nts NA (test code = 1612157017) 139 mmol/L 135-145 K (test code = 9836499693) 4.2 mmol/L 3.5-5.0 CL (test code = 6191197084) 109 mmol/L 98-108 H CO2 TOTAL (test code = 4594221857) 20 mmol/L 23-31 L AGAP (test code = 0429460802) 2-16 BUN (test code = 6802058308) 10 mg/dL 7-23 GLUCOSE (test code = 5870739880) 100 mg/dL 70-110 CREATININE (test code = 0.57 mg/dL 0.50-1.04 9381883016) TOTAL BILI (test code = 0.4 mg/dL 0.1-1.7 1374733901) CALCIUM (test code = 0685577318) 9.4 mg/dL 8.6-10.6 T PROTEIN (test code = 8370970840) 7.2 g/dL 6.3-8.2 ALBUMIN (test code = 6262842658) 4.5 g/dL 3.5-5.0 ALK PHOS (test code = 4542725911) 76 U/L 34-122 ALTv (test code = 1742-6) 22 U/L 5-35 AST(SGOT) (test code = 5420337114) 26 U/L 13-40 eGFR (test code = 0158270200) mL/min/1.73m2 NAHUM (test code = NAHUM) Association [...] tests). Lab Interpretation (test code = Abnormal 78144-7) [facility]21[facility] 17:12:44 Test Item Value Reference Range Interpretation Comments LIPASE (test code = 2619988069) 74 U/L 0-220 Lab Interpretation (test code = Normal 63711-0) [facility] SpringsCB WITH [id number] 17:00:06 Test Item Value Reference Range Interpretation [...] RDW-SD (test code = 41.0 fL 39.0-49.9 26832-8) RDW-CV (test code = 12.2 % 12.0-15.5 788-0) PLT (test code = See_Comment H [Automated 777-3) message] The sy stem which generated this result transmitted reference range : 166 - 358 10*3/ ?L. The reference r shahbaz was not used to interpret this result as normal/abnormal . MPV (test code = 10.0 fL 9.5-12.9 83941-8) NRBC/100 WBC (test See_Comment [Automat ed code = 7408895025) message] The system which generated this result transmitted reference range : 0.0 - 10.0 /100 WBCs. The refer ence range was not u sed to interpret th is result as normal/abnormal . NRBC x10^3 (test code <0.01 See_Comment [Auto mated = 1114036696) message] The s ystem which generated this result transmitted reference range : 10*3/?L. The reference range was not used to interpret this result as normal/abnormal . GRAN MAT (NEUT) % 57.4 % (test code = 770-8) IMM GRAN % (test code 0.30 % = 5327593790) LYMPH % (test code = 34.0 % 736-9) MONO % (test code = 5.5 % 5905-5) EOS % (test code = 1.9 % 713-8) BASO % (test code = 0.9 % 706-2) GRAN MAT x10^3(ANC) 6.05 10*3/uL 1.88-7.09 (test code = 9070794296) IMM GRAN x10^3 (test 0.03 10*3/uL 0.00-0.06 code = 4738674394) LYMPH x10^3 (test code 3.59 10*3/uL 1.32-3.29 H = 731-0) MONO x10^3 (test code 0.58 10*3/uL 0.33-0.92 = 742-7) EOS x10^3 (test code = 0.20 10*3/uL 0.03-0.39 711-2) BASO x10^3 (test code 0.10 10*3/uL 0.01-0.07 H = 704-7) Lab Interpretation Abnormal (test code = 47313-9) [facility] SpringsCT KNEE RIGHT WO [id number] 19:58:17 No evidence of fracture or traumatic [...] traumatic malalignment.No joint effusion.RL: 4400End of report [facility] HospitalXR [facility]NEE 3 VW [id number] 17:44:46 Questionable lateral tibial plateau fracture with [...] the lateral tibial plateau onthe lateral view. [facility], Radiant Results Inft User - 05/20/2021 12:45 [...] characterized with a CT scan of the knee.Osteoarthrosis.[facility] SpringsUrinalysis 2021-01-21 21:26:51 Test Item Value Reference Range Interpretation Comments APPEARANCE (test code = Hazy Clear A 1753262210) COLOR (test code = Yellow Yellow 4823034014) PH (test code = 4.8-8.0 8731431868) SP GRAVITY (test code = 1.003-1.030 8703839313) GLU U QUAL (test code = Normal Normal 2965409040) BLOOD (test code = 2+ Negative A 2716626280) KETONES (test code = 5 mg/dL Negative A 0059304298) PROTEIN (test code = Negative Negative 2887-8) UROBILIN (test code = Normal Normal 8980468263) BILIRUBIN (test code = Negative Negative 3755439454) NITRITE (test code = Negative Negative 1127291094) LEUK CHRIS (test code = Negative Negative 3097557793) RBC/HPF (test code = See_Comment H [Autom ated message] 5215882182) The system [email or web address] generated this result transmitted ref erence range: 0 - 3 HP F. The reference range was not used to int erpret this result as normal/abnormal . WBC/HPF (test code = See_Comment [Autom ated message] 1325166561) The system [email or web address] generated this result transmitted ref erence range: 0 - 5 HP F. The reference range was not used to int erpret this result as normal/abnormal . BACTERIA (test code = Few Negative A 4111243145) MUCOUS (test code = Moderate Negative LPF A 9021920447) SQ EPITH (test code = HPF 8232008478) Lab Interpretation (test Abnormal code = 25883-5) [facility] Metabolic Panel (NA, K, CL, CO2, GLUCOSE, BUN, CREATININE, CA)2021-01-21 20:06:25 Test Item Value Reference Range Interpretation Comments NA (test code = 139 mmol/L 135-145 7145354784) K (test code = 3.9 mmol/L 3.5-5.0 9522706263) CL (test code = 105 mmol/L 98-108 7730929644) CO2 TOTAL (test code 25 mmol/L 23-31 = 1432182289) AGAP (test code = 2-16 9681694742) BUN (test code = 14 mg/dL 7-23 8528686544) GLUCOSE (test code = 96 mg/dL 70-110 0329654193) CREATININE (test code 0.69 mg/dL 0.50-1.04 = 7422707149) CALCIUM (test code = 9.4 mg/dL 8.6-10.6 4751865260) eGFR (test code = mL/min/1.73m2 3385936523) NAHUM (test code = NAHUM) Association of [...] or urine or abnormalities in imaging tests). [facility] with [id number] 19:53:28 Test Item Value Reference Range Interpretation Comments WBC (test code = See_Comment H [Automated 90-2) message] The sy stem which generated this [...] RDW-SD (test code = 39.5 fL 39.0-49.9 57385-9) RDW-CV (test code = 12.1 % 12.0-15.5 788-0) PLT (test code = See_Comment H [Automated 777-3) message] The sy stem which generated this result transmitted reference range : 166 - 358 10*3/ ?L. The reference r shahbaz was not used to interpret this result as normal/abnormal . MPV (test code = 9.3 fL 9.5-12.9 L 00969-2) NRBC/100 WBC (test See_Comment [Automat ed code = 4354940439) message] The system which generated this result transmitted reference range : 0.0 - 10.0 /100 WBCs. The refer ence range was not u sed to interpret th is result as normal/abnormal . NRBC x10^3 (test code <0.01 See_Comment [Auto mated = 9993637215) message] The s ystem which generated this result transmitted reference range : 10*3/?L. The reference range was not used to interpret this result as normal/abnormal . GRAN MAT (NEUT) % 80.9 % (test code = 770-8) IMM GRAN % (test code 0.30 % = 4423071041) LYMPH % (test code = 10.6 % 736-9) MONO % (test code = 6.5 % 5905-5) EOS % (test code = 0.9 % 713-8) BASO % (test code = 0.8 % 706-2) GRAN MAT x10^3(ANC) 9.40 10*3/uL 1.88-7.09 H (test code = 9899158432) IMM GRAN x10^3 (test 0.04 10*3/uL 0.00-0.06 code = 2457201575) LYMPH x10^3 (test code 1.23 10*3/uL 1.32-3.29 L = 731-0) MONO x10^3 (test code 0.76 10*3/uL 0.33-0.92 = 742-7) EOS x10^3 (test code = 0.11 10*3/uL 0.03-0.39 711-2) BASO x10^3 (test code 0.09 10*3/uL 0.01-0.07 H = 704-7) Lab Interpretation Abnormal (test code = 50895-3) [facility]COVID-19 (ID NOW RAPID TESTING)2021-01-21 19:10:38 Test Item Value Reference Range Interpretation Comments SARS-CoV-2 Rapid ID NOW Not Detected Not Detected (test code = 10926-5) NAHUM (test code = NAHUM) ID NOW COVID-19 Assay is an isothermal nucleic acid amplification test intended for the qualitative detection of nucleic acid from SARS-CoV-2 viral RNA in nasopharyngeal (CHAPTER RELATIONS ADMINISTRATOR) specimens. It is used under Emergency Use [...] indicated. Lab Interpretation Normal (test code = 04369-2) [facility] SpringsXR CHEST 1 [id number] 18:35:43HISTORY: Cough and SOB. FINDINGS: ?AP view of the chest showed normal appearance of thecardiomediastinal silhouette. No acute pneumonia, pleural effusion,pulmonary congestion detected. Old fracture deformity of mid right claviclenoted. CONCLUSIONS: No acute cardiopulmonary disease. [facility], Radiant Results Inft User - 01/21/2021 1:36 PM CDTHISTORY: Cough and SOB.FINDINGS: AP view of the chest showed normal appearance of thecardiomediastinal silhouette. No acute pneumonia, pleural effusion,pulmonary congestion detected. Old fracture deformity of mid right claviclenoted.CONCLUSIONS: No acute cardiopulmonary disease.[facility] SpringsCT ANGIOGRAM [id number] 15:41:[address] neckCT ANGIOGRAM NECK HISTORY: [...] from their subclavian originsthrough the vertebrobasilar junction. [facility], Radiant Results Inft User - 10/20/2020 9:42 [...] their subclavian originsthrough the vertebrobasilar junction.IMPRESSIONNormal CT neckUnNavarro Regional HospitalaPTT2020-12-29 15:07:00 Test Item Value Reference Range Interpretation Comments APTT Patient (test See_Comment [Automat ed code = 3173-2) message] The system which generated this result transmitted reference range : 23 - 38 Seconds . The reference range was not used to interpr et this result as normal/abnormal . NAHUM (test code = NAHUM) The [facility] patient population mean normal value for aPTT is 30 seconds. Lab Interpretation Normal (test code = 34398-2) [facility] SpringsProthrombin Time (PT) / [id number] 15:05:00 Test Item Value Reference Range Interpretation Comments PROTIME PATIENT (test See_Comment [Auto mated message] code = 5964-2) The system [employer] generated this result transmitted ref erence range: 12.0 - 1 4.7 Seconds. The re ference range was not u sed to interpret this result as normal/abnor mal. INR (test code = 6301-6) Nor mal INR <1.1; Warfarin Therap eutic range 2.0 to 3. 0 or 2.5 to 3.5, dep ending upon the indica tions. Lab Interpretation (test Normal code = 68269-8) [facility] Metabolic Panel (NA, K, CL, CO2, GLUCOSE, BUN, CREATININE, CA)2020-10-20 14:21:00 Test Item Value Reference Range Interpretation Comments NA (test code = 140 mmol/L 135-145 0398856183) K (test code = 3.8 mmol/L 3.5-5 7397576967) CL (test code = 106 mmol/L 98-108 7859846633) CO2 TOTAL (test code = 25 mmol/L 23-31 9006873474) AGAP (test code = 2-16 3134041043) BUN (test code = 15 mg/dL 7-23 4399692473) GLUCOSE (test code = 108 mg/dL 70-110 8440870803) CREATININE (test code 0.65 mg/dL 0.5-1.04 = 6961125526) CALCIUM (test code = 9.2 mg/dL 8.6-10.6 4089397107) eGFR Calculation mL/min/1.73m2 (Non-) (test code = 7245349305) eGFR Calculation mL/min/1.73m2 () (test code = 1812102894) NAHUM (test code = NAHUM) Association of [...] or urine or abnormalities in imaging tests). [facility] SpringsHepatic Function Panel (ALB, T.PRO, BILI T, BU/BC, ALT, AST, ALK PHOS)2020-10-20 14:20:00 Test Item Value Reference Range Interpretation Comments TOTAL BILI (test code = 1658616696) 0.4 mg/dL 0.1-1.1 BILI UNCON (test code = 1597412642) 0.3 mg/dL 0.1-1.1 BILI CONJ (test code = 9930325499) 0.0 mg/dL 0-0.3 T PROTEIN (test code = 7179501204) 7.3 g/dL 6.3-8.2 ALBUMIN (test code = 7641363210) 4.2 g/dL 3.5-5 ALK PHOS (test code = 2519964416) 96 U/L 34-122 ALTv (test code = 1742-6) 21 U/L 5-35 AST(SGOT) (test code = 1621561591) 23 U/L 13-40 Lab Interpretation (test code = Normal 95725-8) [facility] with [id number] 14:08:00 Test Item Value Reference Range Interpretation Comments WBC (test code = See_Comment [Automated 8290-2) message] The sy stem which generated this [...] RDW-SD (test code = 41.2 fL 39-49.9 31003-4) RDW-CV (test code = 12.3 % 12-15.5 788-0) PLT (test code = See_Comment H [Automated 777-3) message] The sy stem which generated this result transmitted reference range : 166 - 358 10*3/ ?L. The reference r shahbaz was not used to interpret this result as normal/abnormal . MPV (test code = 9.2 fL 9.5-12.9 L 44738-4) NRBC/100 WBC (test See_Comment [Automat ed code = 7592053206) message] The system which generated this result transmitted reference range : 0.0 - 10.0 /100 WBCs. The refer ence range was not u sed to interpret th is result as normal/abnormal . NRBC x10^3 (test code <0.01 See_Comment [Auto mated = 4298122880) message] The s ystem which generated this result transmitted reference range : 10*3/?L. The reference range was not used to interpret this result as normal/abnormal . GRAN MAT (NEUT) % 51.8 % (test code = 770-8) IMM GRAN % (test code 0.30 % = 2214503438) LYMPH % (test code = 36.1 % 736-9) MONO % (test code = 7.0 % 5905-5) EOS % (test code = 3.8 % 713-8) BASO % (test code = 1.0 % 706-2) GRAN MAT x10^3(ANC) 4.85 10*3/uL 1.88-7.09 (test code = 2805734129) IMM GRAN x10^3 (test 0.03 10*3/uL 0-0.06 code = 3803857680) LYMPH x10^3 (test code 3.39 10*3/uL 1.32-3.29 H = 731-0) MONO x10^3 (test code 0.66 10*3/uL 0.33-0.92 = 742-7) EOS x10^3 (test code = 0.36 10*3/uL 0.03-0.39 711-2) BASO x10^3 (test code 0.09 10*3/uL 0.01-0.07 H = 704-7) Lab Interpretation Abnormal (test code = 82270-1) [facility] SpringsPOCT [id number] 14:00:00 Test Item Value Reference Range Interpretation Comments POCT PREG (test code = 1605) negative On board controls acceptable with present C Line (test code = 3574) POCT PREG LOT # (test code = 3575) [id number] POCT PREG TEST DATE (test 2022-02-19 code = 3576) Lab Interpretation (test code = Normal 56267-5) [facility] SpringsRAD STREP SCREEN FOR GROUP [id number] 22:32:00 Test Item Value Reference Range Interpretation Comments Streptococcus pyogenes (group A) Negative Negative antigen (test code = 38191-6) Lab Interpretation (test code = Normal 53996-7) [facility] SpringsType and Screen - The Type and Screen expires at midnight on the 3rd day after it was drawn. A current Type and Screen is required when RBCs are requested. For all other blood products, a Type and Scree n performed during the current hospitalizati...2020-01-03 15:17:39 Test Item Value Reference Range Interpretation Comments ABO & RH (test code A Positive Performe d at [facility] = 20) Laboratory Serv [facility] Blood Bank1 [address] [place] [phone] Free: [phone] A No. [id number] IAT (test code = Negative Performed a t [facility] 1185) Laboratory Serv [facility] Blood Bank1 [address] [place] [phone] Free: [phone] A No. [id number] [facility] METABOLIC PANEL (NA, K, CL, CO2, GLUCOSE, BUN, CREATININE, CA)2020-01-03 15:12:00 Test Item Value Reference Range Interpretation Comments NA (test code = 140 mmol/L 135-145 8662590615) K (test code = 3.8 mmol/L 3.5-5 7708921953) CL (test code = 111 mmol/L 98-108 H 1535878309) CO2 TOTAL (test code = 22 mmol/L 23-31 L 4406047658) AGAP (test code = 2-16 8887673836) BUN (test code = 15 mg/dL 7-23 7795509828) GLUCOSE (test code = 110 mg/dL 70-110 2908701230) CREATININE (test code = 0.60 mg/dL 0.5-1.04 8075878467) CALCIUM (test code = 8.8 mg/dL 8.6-10.6 0097684155) eGFR Calculation mL/min/1.73m2 (Non-) (test code = 2223898691) eGFR Calculation mL/min/1.73m2 () (test code = 2920962842) NAHUM (test code = NAHUM) Association of [...] tests). Lab Interpretation Abnormal (test code = 41771-1) [facility] WITH [id number] 14:41:00 Test Item Value Reference Range Interpretation Comments WBC (test code = See_Comment [Automated 5290-2) message] The sy stem which generated this result transmitted reference range : 4.30 - 11.10 10*3/?L. The reference range was not used to interpret this result as normal/abnormal . RBC (test code = See_Comment L [Automated 789-8) message] The sy stem which [...] RDW-SD (test code = 39.9 fL 39-49.9 95042-8) RDW-CV (test code = 12.1 % 12-15.5 788-0) PLT (test code = See_Comment [Automated 777-3) message] The sy stem which generated this result transmitted reference range : 166 - 358 10*3/ ?L. The reference r shahbaz was not used to interpret this result as normal/abnormal . MPV (test code = 9.2 fL 9.5-12.9 L 71038-9) NRBC/100 WBC (test See_Comment [Automat ed code = 2566528154) message] The system which generated this result transmitted reference range : 0.0 - 10.0 /100 WBCs. The refer ence range was not u sed to interpret th is result as normal/abnormal . NRBC x10^3 (test code <0.01 See_Comment [Auto mated = 5328467986) message] The s ystem which generated this result transmitted reference range : 10*3/?L. The reference range was not used to interpret this result as normal/abnormal . GRAN MAT (NEUT) % 58.5 % (test code = 770-8) IMM GRAN % (test code 0.30 % = [id number]) LYMPH % (test code = 30.8 % 736-9) MONO % (test code = 6.3 % 5905-5) EOS % (test code = 3.1 % 713-8) BASO % (test code = 1.0 % 706-2) GRAN MAT x10^3(ANC) 5.54 10*3/uL 1.88-7.09 (test code = [id number]) IMM GRAN x10^3 (test 0.03 10*3/uL 0-0.06 code = [id number]) LYMPH x10^3 (test code 2.92 10*3/uL 1.32-3.29 = 731-0) MONO x10^3 (test code 0.60 10*3/uL 0.33-0.92 = 742-7) EOS x10^3 (test code = 0.29 10*3/uL 0.03-0.39 711-2) BASO x10^3 (test code 0.09 10*3/uL 0.01-0.07 H = 704-7) Lab Interpretation Abnormal (test code = 91520-7) [facility] [id number] 14:03:00 Test Item Value Reference Range Interpretation Comments POCT PREG (test code = 1605) Negative On board controls acceptable with C Yes Line (test code = 3574) POCT PREG LOT # (test code = 3575) POCT PREG TEST DATE (test code = 3576) Lab Interpretation (test code = Normal 83995-0) [facility] [id number] 22:54:00 Test Item Value Reference Range Interpretation Comments POCT PREG (test code = 1605) Negative On board controls acceptable with C Yes Line (test code = 3574) POCT PREG LOT # (test code = 3575) POCT PREG TEST DATE (test code = 3576) [facility] [id number] 22:54:00 Test Item Value Reference Range Interpretation Comments POCT PREG (test code = 1605) Negative On board controls acceptable with C Yes Line (test code = 3574) POCT PREG LOT # (test code = 3575) POCT PREG TEST DATE (test code = 3576) [facility] [place]"
--- NOTE | 2023-05-10 15:29 | RAD REPORT ---
EXAM DESCRIPTION: RAD - Elbow Left 3 View - 05/10/2023 3:10 pm CLINICAL HISTORY: Left elbow pain FINDINGS: No fracture or dislocation is seen. No bone or joint abnormality noted
--- NOTE | 2023-05-10 16:46 | ER ---
Nurse's Notes [facility] Name: Kelsi Leung Age: 38 yrs Sex: Female : 1985 Arrival Date: 05/10/2023 Time: 14:24 Bed 9 Private MD: Diagnosis: Lateral epicondylitis, left elbow Presentation: 05/10 14:37 Chief complaint: Patient states: L elbow pain x 1 month, has become worse over time, ph unable to straighten arm or lift anything, denies known injury. Coronavirus screen: Vaccine status: Patient reports being unvaccinated. Ebola Screen: No symptoms or risks identified at this time. Initial Sepsis Screen: Does the patient meet any 2 criteria? No. Patient's initial sepsis screen is negative. Does the patient have a suspected source of infection? No. Patient's initial sepsis screen is negative. Risk Assessment: Do you want to hurt yourself or someone else? Patient reports no desire to harm self or others. Onset of symptoms was May 10, 2023. 14:37 Method Of Arrival: Ambulatory 14:37 Acuity: CAMERON 4 ph Triage Assessment: 17:05 General: Appears in no apparent distress. comfortable, Behavior is calm, cooperative. cm10 Injury Description: Pt denies injury or trauma. Historical: - Allergies: 14:39 sertraline; ph - PMHx: 14:39 Colitis; Crohn's Disease; ph - PSHx: 14:39 Total abdominal hysterectomy; ph - Immunization history:: Adult Immunizations unknown. - Social history:: Smoking status: Patient denies any tobacco usage or history of. - Family history:: not pertinent. - Hospitalizations: : No recent hospitalization is reported. Screenin:49 [facility] ED Fall Risk Assessment (Adult) History of falling in the last 3 months, cm10 including since admission No falls in past 3 months (0 pts) Confusion or Disorientation No (0 pts) Intoxicated or Sedated No (0 pts) Impaired Gait No (0 pts) Mobility Assist Device Used No (0 pt) Altered Elimination No (0 pt) Score/Fall Risk Level 0 - 2 = Low Risk Oriented to surroundings, Maintained a safe environment, Hourly rounding (assess needs \T\ fall precautionary measures) done. Abuse screen: Denies threats or abuse. Denies injuries from another. Nutritional screening: No deficits noted. Tuberculosis screening: No symptoms or risk factors identified. Assessment: 14:46 Pain: Complains of pain in left elbow Pain radiates to left arm Pain currently is 0 out cm10 of 10 on a pain scale. at worst was 8 out of 10 on a pain scale. Quality of pain is described as shooting, Pain began 3 months ago Aggravated by increased activity. Neuro: No deficits noted. Level of Consciousness is awake, alert, Oriented to person, place, time, situation. Respiratory: No deficits noted. Airway is patent Respiratory effort is even, unlabored, Respiratory pattern is regular, symmetrical. Musculoskeletal: Reports pain in left elbow. Vital Signs: 14:37 BP 125 / 77; Pulse 73; Resp 16; Temp 98.4; Pulse Ox 99% on R/A; Weight 72.57 kg; Height ph 5 ft. 8 in. ; 14:37 Body Mass Index 24.33 (72.57 kg, 172.72 cm) ph ED Course: 14:26 Patient arrived in ED. mg5 14:39 Triage completed. ph 14:39 Arm band placed on Patient placed in an exam room. ph 14:41 Anjali Mcrae, RN is Primary Nurse. cm10 14:44 Gasper Alcala MD is Attending Physician. rn 14:49 Patient has correct armband on for positive identification. Bed in low position. Call cm10 light in reach. Side rails up X 1. Cardiac monitoring not applicable on this patient. 15:12 XRAY Elbow LEFT 3 view In Process Unspecified. EDMS 16:45 UPPER EXTREMITY VENOUS UNILATE In Process Unspecified. EDMS 16:45 Dusty Oconnor MD is Referral Physician. rn 17:04 No provider procedures requiring assistance completed. Patient did not have IV access cm10 during this emergency room visit. Sling applied to left arm. 17:05 Provided Education on: N/A. cm10 Administered Medications: 17:03 Drug: HYDROcodone-acetaminophen PO 5 mg-325 mg 1 tabs Route: PO; cm10 17:03 Drug: Ibuprofen PO 800 mg Route: PO; cm10 Medication: 17:05 VIS not applicable for this client. cm10 Outcome: 16:45 Discharge ordered by . rn 17:04 Discharged to home ambulatory, with significant other. cm10 17:04 Condition: good 17:04 Discharge instructions given to patient, Instructed on discharge instructions, follow up and referral plans. Demonstrated understanding of instructions, follow-up care. 17:05 Patient left the ED. cm10 Signatures: Dispatcher [employer] EDGasper Shah MD MD rn Hall, Patricia, RN RN Anjali Dykes RN RN cm10 Kristi Reed mg5
--- NOTE | 2023-05-10 16:47 | EDPHYS ---
Physician Documentation [facility] Name: Kelsi Leung Age: 38 yrs Sex: Female : 1985 Arrival Date: 05/10/2023 Time: 14:24 Bed 9 Private MD: ED Physician Gasper Alcala HPI: 05/10 15:52 This 38 yrs old Female presents to ER via Ambulatory with complaints of Elbow Injury. rn 15:52 The patient or guardian complains of decreased range of motion, pain. rn 15:52 The complaints affect the left elbow. Onset: The symptoms/episode began/occurred 1 rn month(s) ago. Modifying factors: The symptoms are alleviated by remaining still, the symptoms are aggravated by movement, lifting weight, bending arm. Severity of symptoms: At their worst the symptoms were moderate, in the emergency department the symptoms are unchanged. The patient has not experienced similar symptoms in the past. The patient has not recently seen a physician. Pt reports atleast 1 month of left elbow pain, no direct trauma or fall. Reports pain over lateral elbow, worse with twisting, extension of hand, and rotation. No hx of dvt/PE. Never felt a tear or heard a pop. NO weakness. . Historical: - Allergies: 14:39 sertraline; ph - PMHx: 14:39 Colitis; Crohn's Disease; ph - PSHx: 14:39 Total abdominal hysterectomy; ph - Immunization history:: Adult Immunizations unknown. - Social history:: Smoking status: Patient denies any tobacco usage or history of. - Family history:: not pertinent. - Hospitalizations: : No recent hospitalization is reported. ROS: 15:52 Constitutional: Negative for fever, chills, and weight loss, Cardiovascular: Negative rn for chest pain, palpitations, and edema, Respiratory: Negative for shortness of breath, cough, wheezing, and pleuritic chest pain, MS/Extremity: + left elbow/forearm pain Exam: 15:52 Constitutional: This is a well developed, well nourished patient who is awake, alert, rn and in no acute distress. MS/ Extremity: Pulses equal, no cyanosis. Neurovascular intact. Mild tenderness along left extensor compart of forearm and over lateral elbow, no weakness, NV intact Vital Signs: 14:37 BP 125 / 77; Pulse 73; Resp 16; Temp 98.4; Pulse Ox 99% on R/A; Weight 72.57 kg; Height ph 5 ft. 8 in. ; 14:37 Body Mass Index 24.33 (72.57 kg, 172.72 cm) ph MDM: 14:44 Patient medically screened. rn 16:44 Differential diagnosis: closed fracture, tendonitis, dvt. Data reviewed: vital signs, rn nurses notes, radiologic studies, plain films, ultrasound, and as a result, I will discharge patient. Counseling: I had a detailed discussion with the patient and/or guardian regarding: the historical points, exam findings, and any diagnostic results supporting the discharge/admit diagnosis, radiology results, the need for outpatient follow up, to return to the emergency department if symptoms worsen or persist or if there are any questions or concerns that arise at home. Special discussion: I discussed with the patient/guardian in detail that at this point there is no indication for admission to the hospital. It is understood, however, that if the symptoms persist or worsen the patient needs to return immediately for re-evaluation. 05/10 14:59 Order name: XRAY Elbow LEFT 3 view; Complete Time: 16:11 rn 05/10 15:56 Order name: UPPER EXTREMITY VENOUS UNILATE [facility] 05/10 16:46 Order name: Sling; Complete Time: 17:04 rn Administered Medications: 17:03 Drug: HYDROcodone-acetaminophen PO 5 mg-325 mg 1 tabs Route: PO; cm10 17:03 Drug: Ibuprofen PO 800 mg Route: PO; cm10 Disposition Summary: 05/10/23 16:45 Discharge Ordered Location: Home rn Problem: an ongoing problem rn Symptoms: have improved rn Condition: Stable rn Diagnosis - Lateral epicondylitis, left elbow rn Followup: rn - With: Dusty Oconnor MD - When: As needed - Reason: Recheck today's complaints, Re-evaluation by your physician Discharge Instructions: - Discharge Summary Sheet rn - Tendinitis rn - How to Use a Sling rn Forms: - Medication Reconciliation Form rn - Thank You Letter rn - Antibiotic home hospice rn - Prescription Opioid Use rn - Patient Portal Instructions rn Signatures: Dispatcher [employer] [facility] Gasper Alcala MD MD rn Hall, Patricia, RN RN ph Martinez, Clarissa RN RN cm10 Corrections: (The following items were deleted from the chart) 15:56 15:00 Lower Extremity Artery [email or web address] ordered. EDMS EDMS
[2023-05-10] MEDS ORDERED: IBUPROFEN 400 MG TAB ONE (17:00)
[2023-05-10] MEDS ORDERED: HYDROCODONE/APAP 5/325 MG TAB ONE (17:00)
[2023-05-10 17:29] VITALS: BP 125/77; TEMP 98.4; O2SAT 99
--- NOTE | 2023-05-10 17:35 | RAD REPORT ---
EXAM DESCRIPTION: US - UPPER EXTREMITY VENOUS UNILATE - 05/10/2023 5:00 pm CLINICAL HISTORY: left arm swelling. COMPARISON: None. FINDINGS: Left internal jugular vein, left subclavian vein, left axillary vein, left brachial vein, left cephalic, left basilic, left ulnar and left radial veins demonstrate phasic signal. The veins are compressible. Doppler demonstrates good flow. Grayscale, color and spectral analysis performed on all vessels IMPRESSION: No sonographic evidence of thrombus involving the left upper extremity veins.
[2023-05-10] MEDS ORDERED: ONDANSETRON 4 MG/2 ML VIAL ONE (19:05)
[2023-05-10] MEDS ORDERED: MORPHINE 4 MG/ML SYR ONE (19:05)
== END 2023-05-10 17:05 | disposition home or self-care (01) ==
LOC: ER 14:24
DX: M77.12 Lateral epicondylitis, left elbow (principal); Z88.8 Allergy status to other drugs, medicaments and biological substances
CPT/HCPCS: 73080; 93971; J2405

== ENCOUNTER 2023-06-07 12:11 | Emergency (ER) | payer OTHER ==
--- OUTSIDE RECORDS SUMMARY | 2023-06-07 12:22 | XMS REPORT | Continuity of Care Document ---
:1985 Author Organization [facility] t Address [address] [place] [address] [address] [place] [address] Care Team Providers Name Role Phone SEVERINO SMART Primary Care Physician Unavailable Severino Smart Attending Clinician Unavailable SONDRA CHAVIRA Attending Clinician Unavailable SONDRA CHAVIRA Attending Clinician Unavailable Armond Moore DO Attending Clinician Blaine Varela Attending Clinician Doctor Unassigned, [place] Attending Clinician Unavailable Sandee Guillen DO Attending [...] Number Effective Date Expiration Date Caleb morgan [facility] [id number] 2016 HEALTH CHOICE 00:00:00 MEDICAID COMMUNITY [facility] [id number] [facility] HEALTH CHOICE [facility] [id number] [facility] CHOICE [facility] [id number] [facility] CHOICE [facility] [phone] [facility] CHOICE [facility] [id number] LTAC, located within [facility] Problems Condition Condition Condition Status Onset Resolution [...] of human human 00:00: g of this [place] papillomav papillomav 00 note Me dical irus (HPV) irus (HPV) might be Branch DNA test DNA test different positive positive from the original. 04/10/19 - pap smear was normal but HPV 6 was positive. Started on DepoProve ra March 2019. Abdominal Abdominal Disease Active 2019 Overview: Univers pain, pain, 6-19 Formattin ity of generalize generalize 00:00: g of this [place] d d 00 note Medical might be Branch different from the original. Patient followed by GI in [place] Menorrhagi Menorrhagi Disease Active 2019- U nivers a with a with 6-19 ity of regular regular 00:00: cycle cycle 00 Medical Branch Dysmenorrh Dysmenorrh Disease Active U nivers ea ea 6-19 ity of 00:00: [facility] Menorrhagi Menorrhagi Disease Active Overview : Faye a with a with 6-19 Formattin ity of regular regular 00:00: g of this [place] cycle cycle 00 note Medical might be Branch different from the original. March 2019 - DepoProve ra started. 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 01/03/2020 - s/p TLH and b/l salpingec lorraine. Pathology benign with no pathology seen. [id number] Constipati Problem Com mon on, Spirit unspecifie - [facility]I d constipati [facility] on [facility] [id number] GERD Problem Common without Spirit esophagiti [facility] [id number] Hyperlipid Problem Com mon emia, Spirit unspecifie - CHI d hyperlipid [facility] emia [facility] [id number] Loss of Problem Common taste [facility] [id number] Tobacco Problem Commo n use [facility] disorder [facility] [id number] Generalize Problem Com mon d anxiety [facility] disorder [facility] [id number] Primary Problem Common insomnia [facility] [id number] Migraine Problem Comm on without Spirit aura and - CHI without St status [facility] migrainosu Medica l s, not Center intractabl e Spondylosi Spondylosi Problem C ommon s s [facility] [id number] Crohn's Problem Common disease Spirit with - CHI complicati St on, [facility] unspecifie Medica l d Center gastrointe stinal tract location [id number] Autoimmune Problem Com mon disease [facility] Allergies, Adverse Reactions, Alerts Allergy Allergy Status Severity Reaction(s) Onset Inactive Treating Comm ents Source Name Type Date Date Clinician SERTRALI DRUG Active High Unknown-Cmnt Un olayinka NE INGREDI 3-13 ity of 00:00: [address] NO KNOWN Drug Active Univers ALLERGIE Class ity of S [facility] [place] sertrali sertrali Active Unknown Commo n ne ne Spirit - [facility] Social History Social Habit Start Date Stop Date Quantity Comments Source Sex Assigned At Common Sp yasir - [facility] History of Common Spirit - Tobacco Use [facility] Exposure to Not sure University of SARS-CoV-2 [facility] (event) [place] Alcohol intake 2021-08-04 2021-08-04 Ex-drinker University 00:00:00 00:00:00 (finding) [facility] [place] Tobacco Comment 2019-12-31 2019-12-31 1 ppd Universit y of 00:00:00 00:00:00 [facility] [place] Tobacco use and 2019-04-10 2019-04-10 Never used Universit y of exposure 00:00:00 00:00:00 [facility] [place] Smoking Status Start Date Stop Date Source Former Smoker 2022-10-08 00:00:00 2022-10-08 00:00:00 Common S pirit - [facility] Current Smoker 2022-07-25 00:00:00 [facility] Spiri t [facility] Medications Ordered Filled Start Stop Current Ordering Indication Dosage Frequency Signature Comments Components Source Medication Medication Date Date Medication? Clinician (SIG) Name Name diazePAM 2 diazePAM 2 2021-10 No 1{table diazePAM 2 MG MG -21 t_as_ne MG 00:00: eded} 00 diazePAM 2 diazePAM 2 2021-10 No 1{table diazePAM 2 MG MG 1- t_as_ne MG 00:00: eded} 00 diazePAM 2 [...] in 250 MG 00:00: 00:00 00 :00 [facility] 2021-10 No 40mg Common (Triamcinol (Triamcinol 0-04 S pirit one) one) 00:00: - [facility] 00 [facility] Kenalog 2021-10 No 40mg Common (Triamcinol (Triamcinol 0-04 S pirit one) one) 00:00: - CHI 00 [facility] Kenalog Kenalog 2021-10 No 40mg Common (Triamcinol (Triamcinol 0-04 S pirit one) one) 00:00: - CHI 00 [facility] Kenalog Kenalog 2021-10 No 40mg Common (Triamcinol (Triamcinol 0-04 S pirit one) one) 00:00: - CHI 00 [facility] Britany Garg 2021- No 40mg Common (Triamcinol (Triamcinol 0-04 S pirit one) one) 00:00: - CHI 00 [facility] Britany Garg 2021-1 No 40mg Common (Triamcinol (Triamcinol 0-04 S pirit one) one) 00:00: - CHI 00 [facility] diazePAM 2 diazePAM 2 2021-0 No [...] pirit one) one) 00:00: - CHI 00 [facility] Toradol Toradol 2021-0 No 60mg Common (Ketorolac) (Ketorolac) 3-30 S pirit 00:00: - CHI [facility] Kenalog Kenalog 2021-0 No 40mg Common (Triamcinol (Triamcinol 3-30 S pirit one) one) 00:00: - CHI 00 [facility] Toradol Toradol 2021-0 No 60mg Common (Ketorolac) (Ketorolac) 3-30 S pirit 00:00: - CHI [facility] Kenalog Kenalog 2021-0 No 40mg Common (Triamcinol (Triamcinol 3-30 S pirit one) one) 00:00: - CHI 00 [facility] Toradol Toradol 2021-0 No 60mg Common (Ketorolac) (Ketorolac) 3-30 S pirit 00:00: - CHI 00 [facility] Kenalog Kenalog 2021-0 No 40mg Common (Triamcinol (Triamcinol 3-30 S pirit one) one) 00:00: - CHI 00 [facility] Toradol Toradol 2021-0 No 60mg Common (Ketorolac) (Ketorolac) 3-30 S pirit 00:00: - CHI 00 [facility] Kenalog Kenalog 2021-0 No 40mg Common (Triamcinol (Triamcinol 3-30 S pirit one) one) 00:00: - CHI [facility] Toradol Toradol 2021-0 No 60mg Common (Ketorolac) (Ketorolac) 3-30 S pirit 00:00: - CHI 00 [facility] Kenalog Kenalog 2021-0 No 40mg Common (Triamcinol (Triamcinol 3-30 S pirit one) one) 00:00: - CHI 00 [facility] Toradol Toradol 2021-0 No 60mg Common (Ketorolac) (Ketorolac) 3-30 S pirit 00:00: - CHI 00 [facility] Kenalog Kenalog 2021-0 No 40mg Common (Triamcinol (Triamcinol 3-30 S pirit one) one) 00:00: - CHI 00 [facility] Toradol Toradol 2021-0 No 60mg Common (Ketorolac) (Ketorolac) 3-30 S pirit 00:00: - CHI 00 [facility] Kenalog Kenalog 2021-0 No 40mg Common (Triamcinol (Triamcinol 3-30 S pirit one) one) 00:00: - CHI [facility] Toradol Toradol 2021-0 No 60mg Common (Ketorolac) (Ketorolac) 3-30 S pirit 00:00: - CHI 00 [facility] Kenalog Kenalog 2021-0 No 40mg Common (Triamcinol (Triamcinol 3-30 S pirit one) one) 00:00: - CHI 00 [facility] Toradol Toradol 2021-0 No 60mg Common (Ketorolac) (Ketorolac) 3-30 S pirit 00:00: - CHI [facility] Kenalog Kenalog 2021-0 No 40mg Common (Triamcinol (Triamcinol 3-30 S pirit one) one) 00:00: - CHI 00 [facility] Toradol Toradol 2021-0 No 60mg Common (Ketorolac) (Ketorolac) 3-30 S pirit 00:00: - CHI [facility] Kenalog Kenalog 2021-0 No 40mg Common (Triamcinol (Triamcinol 3-30 S pirit one) one) 00:00: - CHI [facility] Toradol Toradol 2021-0 No 60mg Common (Ketorolac) (Ketorolac) 3-30 S pirit 00:00: - CHI [facility] Kenalog Kenalog 2021-0 No 40mg Common (Triamcinol (Triamcinol 3-30 S pirit one) one) 00:00: - CHI [facility] Toradol Toradol 2021-0 No 60mg Common (Ketorolac) (Ketorolac) 3-30 S pirit 00:00: - CHI [facility] Kenalog Kenalog 2021-0 No 40mg Common (Triamcinol (Triamcinol 3-30 S pirit one) one) 00:00: - CHI [facility] Toradol Toradol 2021-0 No 60mg Common (Ketorolac) (Ketorolac) 3-30 S pirit 00:00: - CHI [facility] Kenalog Kenalog 2021-0 No 40mg Common (Triamcinol (Triamcinol 3-30 S pirit one) one) 00:00: - CHI [facility] Toradol Toradol 2021-0 No 60mg Common (Ketorolac) (Ketorolac) 3-30 S pirit 00:00: - CHI [facility] Kenalog Kenalog 2021-0 No 40mg Common (Triamcinol (Triamcinol 3-30 S pirit one) one) 00:00: - CHI 00 [facility] Toradol Toradol 2021-0 No 60mg Common (Ketorolac) (Ketorolac) 3-30 S pirit 00:00: - CHI 00 [facility] Kenalog Kenalog 2021-0 No 40mg Common (Triamcinol (Triamcinol 3-30 S pirit one) one) 00:00: - CHI 00 [facility] Toradol Toradol 2021-0 No 60mg Common (Ketorolac) (Ketorolac) 3-30 S pirit 00:00: - CHI [facility] Kenalog Kenalog 2021-0 No 40mg Common (Triamcinol (Triamcinol 3-30 S pirit one) one) 00:00: - CHI [facility] Toradol Toradol 2021-0 No 60mg Common (Ketorolac) (Ketorolac) 3-30 S pirit 00:00: - CHI 00 [facility] Kenalog Kenalog 2021-0 No 40mg Common (Triamcinol (Triamcinol 3-30 S pirit one) one) 00:00: - CHI 00 [facility] Toradol Toradol 2021-0 No 60mg Common (Ketorolac) (Ketorolac) 3-30 S pirit 00:00: - CHI 00 [facility] Kenalog Kenalog 2021-0 No 40mg Common (Triamcinol (Triamcinol 3-30 S pirit one) one) 00:00: - CHI 00 [facility] Toradol Toradol 2021-0 No 60mg Common (Ketorolac) (Ketorolac) 3-30 S pirit 00:00: - CHI 00 [facility] Kenalog Kenalog 2021-0 No 40mg Common (Triamcinol (Triamcinol 3-30 S pirit one) one) 00:00: - CHI [facility] Toradol Toradol 2021-0 No 60mg Common (Ketorolac) (Ketorolac) 3-30 S pirit 00:00: - CHI 00 [facility] Kenalog Kenalog 2021-0 No 40mg Common (Triamcinol (Triamcinol 3-30 S pirit one) one) 00:00: - CHI 00 [facility] Toradol Toradol 2-0 No 60mg Common (Ketorolac) (Ketorolac) 3-30 S pirit 00:00: - CHI 00 [facility] Kenalog Kenalog 2021-0 No 40mg Common (Triamcinol (Triamcinol 3-30 S pirit one) one) 00:00: - CHI 00 [facility] Toradol Toradol 2-0 No 60mg Common (Ketorolac) (Ketorolac) 3-30 S pirit 00:00: - CHI 00 [facility] Kenalog Kenalog 2-0 No 40mg Common (Triamcinol (Triamcinol 3-30 S pirit one) one) 00:00: - CHI 00 [facility] Toradol Toradol 2-0 No 60mg Common (Ketorolac) (Ketorolac) 3-30 S pirit 00:00: - CHI 00 [facility] Tamiflu 75 Tamiflu 75 2021-0 No [...] ity of (PF)) 17:30: 16:38 ONCE, 1 [place] injection 4 00 :00 dose, On Medi gabriel mg Wed Branch 08/04/21 at 1230, Routine iopamidol 2020-10- No [id number] 120mL 120 mL, Univers (ISOVUE 008-04 Intravenou [...] IV Push, ity of mg 16:26: Q4HPRN, [place] 36 Starting Medical on Mon08/04/21 at 1126, Until Discontinu ed, Routine, Pain (scale 7-10) ondansetron 2020-10 Yes [id number] 4mg Take 1 Univers 4 mg 0-13 [...] 1 Jose as mg 00 :00 dose, [facility] 05/20/21 at Branch 1700, [place] ibuprofen 2020-0 Yes [id number] 600mg Take 1 Univers 600 mg 7- [...] Indication s: acute pain ibuprofen 2020-0 Yes [id number] 600mg Take 1 Univers 600 mg 7-29 [...] :00 ONCE, 1 Medical 10 mg dose, [facility] Branch 01/21/21 at 1645, [place] ketorolac No 30mg 30 mg, Unive rs (TORADOL) 01-21 Slow IV ity of injection 20:45: 20:54 Push, [place] 30 mg 00 :00 ONCE, 1 Medical dose, [facility] Branch 01/21/21 at 1545, [place]
Fa culty [...] Catherine 01/21/21 at 1430, [place] ondansetron Yes [id number] 4mg Take 1 Univers (ZOFRAN 4-01 tablet by ity of ODT) 4 mg 00:00: mouth [place] disintegrat 00 every 8 Medic al ing tablet (eight) Branch hours as needed for Nausea and Vomiting (N/V). ondansetron Yes [id number] 4mg Take 1 Univers (ZOFRAN 4-01 tablet by ity of ODT) 4 mg 00:00: mouth [place] disintegrat 00 every 8 Medic al ing tablet (eight) Branch hours as needed for Nausea and Vomiting (N/V). ondansetron Yes [id number] 4mg Take 1 Univers (ZOFRAN 4-01 tablet by ity of ODT) 4 mg 00:00: mouth [place] disintegrat 00 every 8 Medic al ing tablet (eight) Branch hours as needed for Nausea and Vomiting (N/V). ondansetron 2020- No [id number] 4mg Take 1 Univers (ZOFRAN 4-01 10-13 [...] at 0900, STAT diazePAM 2 2019- Yes [id number] 2mg Take 1 U nivers mg tablet 2-29 tablet by ity o f 00:00: mouth 3 (three) Medical times Branch daily as needed for Muscle Spasms. ibuprofen 2019-10 Yes [id number] 800mg Take 1 U nivers 800 mg 2-29 tablet by ity of tablet 00:00: mouth 00 every 8 Medical (eight) Branch hours. diazePAM 2 2019-10 Yes [id number] 2mg Take 1 U nivers mg tablet 2-29 tablet by ity o f 00:00: mouth 3 (three) Medical times Branch daily as needed for Muscle Spasms. ibuprofen 2019-10 Yes [id number] 800mg Take 1 U nivers 800 mg 2-29 tablet by ity of tablet 00:00: mouth 00 every 8 Medical (eight) Branch hours. diazePAM 2 2019-10 Yes [id number] 2mg Take 1 U nivers mg tablet 2-29 tablet by ity o f 00:00: mouth 3 (three) Medical times Branch daily as needed for Muscle Spasms. ibuprofen 2019-10 Yes [id number] 800mg Take 1 U nivers 800 mg 2-29 tablet by ity of tablet 00:00: mouth [place] 00 every 8 Medical (eight) Branch hours. diazePAM 2 2019-10 Yes [id number] 2mg Take 1 U nivers mg tablet 2-29 tablet by ity o f 00:00: mouth 3 (three) Medical times Branch daily as needed for Muscle Spasms. ibuprofen 2019-10 Yes [id number] 800mg Take 1 U nivers 800 mg 2-29 tablet by ity of tablet 00:00: mouth [place] 00 every 8 Medical (eight) Branch hours. diazePAM 2 2019-10 Yes [id number] 2mg Take 1 U nivers mg tablet 2-29 tablet by ity o f 00:00: mouth 3 (three) Medical times Branch daily as needed for Muscle Spasms. ibuprofen 2019-10 Yes [id number] 800mg Take 1 U nivers 800 mg 2-29 tablet by ity of tablet 00:00: mouth [place] 00 every 8 Medical (eight) Branch hours. diazePAM 2 2019- Yes [id number] 2mg Take 1 U nivers mg tablet 2-29 tablet by ity o f 00:00: mouth 3 [place] 00 (three) Medical times Branch daily as needed for Muscle Spasms. ibuprofen 2019- Yes [id number] 800mg Take 1 U nivers 800 mg 2-29 tablet by ity of tablet 00:00: mouth [place] 00 every 8 Medical (eight) Branch hours. ibuprofen 2019-0 2020- No 600mg 600 mg, Uni vers (IBU) 07-15- Oral, ity of tablet 600 22:45: 21:58 ONCE, 1 [place] as mg 00 :00 dose, Wed Medical 07/15/20 at Branch 1745, [place] dicyclomine 2020-0 Yes [id number] 10mg Take 1 Univers (BENTYL) 10 9-23 capsule by it y of mg capsule 00:00: mouth [place] (four) Medical times Branch daily as needed for Abdominal pain. dicyclomine 2020-0 Yes [id number] 10mg Take 1 Univers (BENTYL) 10 9-23 capsule by it y of mg capsule 00:00: mouth [place] 00 (four) Medical times Branch daily as needed for Abdominal pain. dicyclomine 2020-0 Yes [id number] 10mg Take 1 Univers (BENTYL) 10 9-23 capsule by it y of mg capsule 00:00: mouth [place] 00 (four) Medical times Branch daily as needed for Abdominal pain. dicyclomine 2020-0 Yes [id number] 10mg Take 1 Univers (BENTYL) 10 9-23 capsule by it y of mg capsule 00:00: mouth [place] 00 (four) Medical times Branch daily as needed for Abdominal pain. dicyclomine 2020-0 Yes [id number] 10mg Take 1 Univers (BENTYL) 10 9-23 capsule by it y of mg capsule 00:00: mouth [place] 00 (four) Medical times Branch daily as needed for Abdominal pain. dicyclomine 2020-0 Yes [id number] 10mg Take 1 Univers (BENTYL) 10 9-23 capsule by it y of mg capsule 00:00: mouth [place] 00 (four) Medical times Branch daily as needed for Abdominal pain. dicyclomine 2020-0 Yes [id number] 10mg Take 1 Univers (BENTYL) 10 9-23 capsule by it y of mg capsule 00:00: mouth [place] 00 (four) Medical times Branch daily as needed for Abdominal pain. dicyclomine 2020-0 Yes [id number] 10mg Take 1 Univers (BENTYL) 10 9-23 capsule by it y of mg capsule 00:00: mouth [place] 00 (four) Medical times Branch daily as needed for Abdominal pain. ProAir HFA ProAir HFA 2019-0 Yes Severino 2 puffs as Common 06-02 Smart needed Spirit 00:00: - [facility] 00 [facility] ProAir HFA ProAir HFA 2020-0 No [...] :00 Medical Branch traMADol 50 2020-0 Yes [id number] 50mg Take 1 Univers mg tablet 3-27 tablet by ity o f 00:00: mouth [place] 00 every 8 Medical (eight) Branch hours as needed (moderate pain). traMADol 50 2020-0 Yes [id number] 50mg Take 1 Univers mg tablet 3-27 tablet by ity o f 00:00: mouth [place] 00 every 8 Medical (eight) Branch hours as needed (moderate pain). traMADol 50 2020-0 Yes [id number] 50mg Take 1 Univers mg tablet 3-27 tablet by ity o f 00:00: mouth [place] 00 every 8 Medical (eight) Branch hours as needed (moderate pain). traMADol 50 2020-0 Yes [id number] 50mg Take 1 Univers mg tablet 3-27 tablet by ity o f 00:00: mouth [place] 00 every 8 Medical (eight) Branch hours as needed (moderate pain). traMADol 50 2020-0 Yes [id number] 50mg Take 1 Univers mg tablet 3-27 tablet by ity o f 00:00: mouth [place] 00 every 8 Medical (eight) Branch hours as needed (moderate pain). traMADol 50 2020-0 Yes [id number] 50mg Take 1 Univers mg tablet 3-27 tablet by ity o f 00:00: mouth [place] 00 every 8 Medical (eight) Branch hours as needed (moderate pain). traMADol 50 2020-0 Yes [id number] 50mg Take 1 Univers mg tablet 3-27 tablet by ity o f 00:00: mouth [place] 00 every 8 Medical (eight) Branch hours as needed (moderate pain). traMADol 50 2020-0 Yes [id number] 50mg Take 1 Univers mg tablet 3-27 tablet by ity o f 00:00: mouth [place] 00 every 8 Medical (eight) Branch hours as needed (moderate pain). traMADol 50 2020-0 Yes [id number] 50mg Take 1 Univers mg tablet 3-27 tablet by ity o f 00:00: mouth [place] 00 every 8 Medical (eight) Branch hours as needed (moderate pain). traMADol 50 2020-0 Yes [id number] 50mg Take 1 Univers mg tablet 3-27 tablet by ity o f 00:00: mouth [place] 00 every 8 Medical (eight) Branch hours as needed (moderate pain). traMADol 50 2020-0 Yes [id number] 50mg Take 1 Univers mg tablet 3-27 tablet by ity o f 00:00: mouth [place] 00 every 8 Medical (eight) Branch hours as needed (moderate pain). traMADol 50 2020-0 Yes [id number] 50mg Take 1 Univers mg tablet 3-27 tablet by ity o f 00:00: mouth [place] 00 every 8 Medical (eight) Branch hours as needed (moderate pain). traMADol 50 2020-0 Yes [id number] 50mg Take 1 Univers mg tablet 3-27 tablet by ity o f 00:00: mouth [place] 00 every 8 Medical (eight) Branch hours as needed (moderate pain). traMADol 50 2020-0 Yes [id number] 50mg Take 1 Univers mg tablet 3-27 tablet by ity o f 00:00: mouth [place] 00 every 8 Medical (eight) Branch hours as needed (moderate pain). traMADol 50 2020-0 Yes [id number] 50mg Take 1 Univers mg tablet 3-27 tablet by ity o f 00:00: mouth [place] 00 every 8 Medical (eight) Branch hours as needed (moderate pain). traMADol 50 2020-0 Yes [id number] 50mg Take 1 Univers mg tablet 3-27 tablet by ity o f 00:00: mouth [place] 00 every 8 Medical (eight) Branch hours as needed (moderate pain). traMADol 50 2020-0 Yes [id number] 50mg Take 1 Univers mg tablet 3-27 tablet by ity o f 00:00: mouth [place] 00 every 8 Medical (eight) Branch hours as needed (moderate pain). traMADol 50 2020-0 Yes [id number] 50mg Take 1 Univers mg tablet 3-27 tablet by ity o f 00:00: mouth [place] 00 every 8 Medical (eight) Branch hours as needed (moderate pain). traMADol 50 2020-0 Yes [id number] 50mg Take 1 Univers mg tablet 3-27 tablet by ity o f 00:00: mouth [place] 00 every 8 Medical (eight) Branch hours as needed (moderate pain). OMEPRAZOLE 2020-0 Yes 40mg Take 40 mg U nivers ORAL 3-16 by mouth. ity of 14:17: [address] ACETAMINOPH 2020-0 Yes Take by Uni vers EN EXTRA 3-16 mouth. ity of STRENGTH 14:17: [address] BUPROPION 2020-0 Yes Take by Unive rs HCL ORAL 3-16 mouth. ity of 14:17: [address] OMEPRAZOLE 2020-0 Yes 40mg Take 40 mg U nivers ORAL 3-16 by mouth. ity of 14:17: [address] ACETAMINOPH 2020-0 Yes Take by Uni vers EN EXTRA 3-16 mouth. ity of STRENGTH 14:17: [address] BUPROPION 2020-0 Yes Take by Unive rs HCL ORAL 3-16 mouth. ity of 14:17: [address] OMEPRAZOLE 2020-0 Yes 40mg Take 40 mg U nivers ORAL 3-16 by mouth. ity of 14:17: [address] ACETAMINOPH 2020-0 Yes Take by Uni vers EN EXTRA 3-16 mouth. ity of STRENGTH 14:17: [address] BUPROPION 2020-0 Yes Take by Unive rs HCL ORAL 3-16 mouth. ity of 14:17: [place] 39 Medical Branch OMEPRAZOLE 2020-0 Yes 40mg Take 40 mg U nivers ORAL 3-16 by mouth. ity of 14:17: [address] ACETAMINOPH 2020-0 Yes Take by Uni vers EN EXTRA 3-16 mouth. ity of STRENGTH 14:17: [address] Branch BUPROPION 2020-0 Yes Take by Unive rs HCL ORAL 3-16 mouth. ity of 14:17: [address] OMEPRAZOLE 2020-0 Yes 40mg Take 40 mg U nivers ORAL 3-16 by mouth. ity of 14:17: [address] Branch BUPROPION 2020-0 Yes Take by Unive rs HCL ORAL 3-16 mouth. ity of 14:17: [address] OMEPRAZOLE 2020-0 Yes 40mg Take 40 mg U nivers ORAL 3-16 by mouth. ity of 14:17: [address] BUPROPION 2020-0 Yes Take by Unive rs HCL ORAL 3-16 mouth. ity of 14:17: [address] OMEPRAZOLE 2020-0 Yes 40mg Take 40 mg U nivers ORAL 3-16 by mouth. ity of 14:17: [address] Branch BUPROPION 2020-0 Yes Take by Unive rs HCL ORAL 3-16 mouth. ity of 14:17: [address] OMEPRAZOLE 2020-0 Yes 40mg Take 40 mg U nivers ORAL 3-16 by mouth. ity of 14:17: [address] BUPROPION 2020-0 Yes Take by Unive rs HCL ORAL 3-16 mouth. ity of 14:17: [address] OMEPRAZOLE 2020-0 Yes 40mg Take 40 mg U nivers ORAL 3-16 by mouth. ity of 14:17: [address] BUPROPION 2020-0 Yes Take by Unive rs HCL ORAL 3-16 mouth. ity of 14:17: [address] OMEPRAZOLE 2020-0 Yes 40mg Take 40 mg U nivers ORAL 3-16 by mouth. ity of 14:17: [address] BUPROPION 2020-0 Yes Take by Unive rs HCL ORAL 3-16 mouth. ity of 14:17: [address] OMEPRAZOLE 2020-0 Yes 40mg Take 40 mg U nivers ORAL 3-16 by mouth. ity of 14:17: [address] BUPROPION 2020-0 Yes Take by Unive rs HCL ORAL 3-16 mouth. ity of 14:17: [address] OMEPRAZOLE 2020-0 Yes 40mg Take 40 mg U nivers ORAL 3-16 by mouth. ity of 14:17: [address] BUPROPION 2020-0 Yes Take by Unive rs HCL ORAL 3-16 mouth. ity of 14:17: [address] OMEPRAZOLE 2020-0 Yes 40mg Take 40 mg U nivers ORAL 3-16 by mouth. ity of 14:17: [address] BUPROPION 2020-0 Yes Take by Unive rs HCL ORAL 3-16 mouth. ity of 14:17: [address] OMEPRAZOLE 2020-0 Yes 40mg Take 40 mg U nivers ORAL 3-16 by mouth. ity of 14:17: [address] BUPROPION 2020-0 Yes Take by Unive rs HCL ORAL 3-16 mouth. ity of 14:17: [address] OMEPRAZOLE 2020-0 Yes 40mg Take 40 mg U nivers ORAL 3-16 by mouth. ity of 14:17: [address] BUPROPION 2020-0 Yes Take by Unive rs HCL ORAL 3-16 mouth. ity of 14:17: [address] OMEPRAZOLE 2020-0 Yes 40mg Take 40 mg U nivers ORAL 3-16 by mouth. ity of 14:17: [address] BUPROPION 2020-0 Yes Take by Unive rs HCL ORAL 3-16 mouth. ity of 14:17: [address] OMEPRAZOLE 2020-0 Yes 40mg Take 40 mg U nivers ORAL 3-16 by mouth. ity of 14:17: [address] BUPROPION 2020-0 Yes Take by Unive rs HCL ORAL 3-16 mouth. ity of 14:17: [address] OMEPRAZOLE 2020-0 Yes 40mg Take 40 mg U nivers ORAL 3-16 by mouth. ity of 14:17: [address] BUPROPION 2020-0 Yes Take by Unive rs HCL ORAL 3-16 mouth. ity of 14:17: [address] OMEPRAZOLE 2020-0 Yes 40mg Take 40 mg U nivers ORAL 3-16 by mouth. ity of 14:17: [address] BUPROPION 2020-0 Yes Take by Unive rs HCL ORAL 3-16 mouth. ity of 14:17: [address] OMEPRAZOLE 2020-0 Yes 40mg Take 40 mg U nivers ORAL 3-16 by mouth. ity of 14:17: [address] BUPROPION 2020-0 Yes Take by Unive rs HCL ORAL 3-16 mouth. ity of 14:17: [address] OMEPRAZOLE 2020-0 Yes 40mg Take 40 mg U nivers ORAL 3-16 by mouth. ity of 14:17: [address] BUPROPION 2020-0 Yes Take by Unive rs HCL ORAL 3-16 mouth. ity of 14:17: [address] OMEPRAZOLE 2020-0 Yes 40mg Take 40 mg U nivers ORAL 3-16 by mouth. ity of 14:17: [address] BUPROPION 2020-0 Yes Take by Unive rs HCL ORAL 3-16 mouth. ity of 14:17: [address] OMEPRAZOLE 2020-0 Yes 40mg Take 40 mg U nivers ORAL 3-16 by mouth. ity of 09:17: [address] BUPROPION 2020-0 Yes Take by Unive rs HCL ORAL 3-16 mouth. ity of 09:17: [address] HYDROcodone 2020-0 Yes [id number] 1{tbl} Take 1 [facility] -acetaminop 3-16 tablet by ity of hen 5-325 00:00: mouth [place] mg tablet 00 every 6 Medical (six) Branch hours as needed for Pain (scale 4-6) or Pain (scale 7-10). HYDROcodone 2020-0 Yes [id number] 1{tbl} Take 1 [facility] -acetaminop 3-16 tablet by ity of hen 5-325 00:00: mouth [place] mg tablet 00 every 6 Medical (six) Branch hours as needed for Pain (scale 4-6) or Pain (scale 7-10). HYDROcodone 2020-0 Yes [id number] 1{tbl} Take 1 [facility] -acetaminop 3-16 tablet by ity of hen 5-325 00:00: mouth [place] mg tablet 00 every 6 Medical (six) Branch hours as needed for Pain (scale 4-6) or Pain (scale 7-10). HYDROcodone 2020-0 2020- No [id number] 1{tbl} Take 1 [facility] -acetaminop 3-16 03-27 tablet by it y of hen 5-325 00:00: 00:00 mouth [place] mg tablet 00 :00 every 6 Medical (six) Branch hours as needed for Pain (scale 4-6) or Pain (scale 7-10). HYDROcodone 2020-0 2020- No [id number] 1{tbl} Take 1 [facility] -acetaminop 3-16 03-27 tablet by it y of hen 5-325 00:00: 00:00 mouth [place] mg tablet 00 :00 every 6 Medical (six) Branch hours as needed for Pain (scale 4-6) or Pain (scale 7-10). HYDROcodone 2020-0 2020- No [id number] 1{tbl} Take 1 [facility] -acetaminop 3-16 03-27 tablet by it y of hen 5-325 00:00: 00:00 mouth [place] mg tablet 00 :00 every 6 Medical (six) Branch hours as needed for Pain (scale 4-6) or Pain (scale 7-10). HYDROcodone 2020-0 2020- No [id number] 1{tbl} Take 1 [facility] -acetaminop 3-16 -27 [...] [place], [place]U
En ter indication for use: [facility]
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
food service team member approving Restricted medication : SONDRA CHAVIRA HYDROcodone 2020-0 Yes 2{tbl} 2 tablet, Univers -acetaminop 3- Oral, ity of hen (NOR[place] 18:10: Q6HPRN[place] 5-325 mg 00 Starting Medi gabriel tablet 2 Mon [place] tablet 01/03/20 at 1310, Until Discontinu ed, Routine, Pain (scale 7-10) OMEPRAZOLE 2020-0 Yes 40mg Take 40 mg U nivers ORAL 3-13 by mouth. ity of 17:55: [address] ACETAMINOPH 2020-0 Yes Take by Uni vers EN EXTRA 3- mouth. ity of STRENGTH 17:55: [address] BUPROPION 2020-0 Yes Take by Unive rs HCL ORAL 3-13 mouth. ity of 17:55: [address] bupivacaine 2020-0 Yes PRN, Univer s -epinephrin 3-13 Starting ity of e-pf 17:05: Fri [place] (SENSORCAIN 00 01/03/20 at Or dical E 1205, Branch W/EPINEPHRI Until NE) 0.5 Discontinu %-1:200,000 ed, injection Routine, Intra-op sodium 2020-0 Yes PRN, Univers chloride 3- Starting ity of 0.9 % 17:05: Fri [place] irrigation 00 01/03/20 at Med ical solution 1205, Branch Until Discontinu ed, Intra-op metroNIDAZO 2020-0 Yes 2000mg 2,000 mg, Univers LE (FLAGYL 3-13 IV ity of I.V.) 16:02: Piggyback, [place] Piggyback 40 O.R. Medical 2,000 mg HOLDING Branch ONCE, 1 dose, Starting Mon01/03/20 at 1102, Until Discontinu ed, 400 mL, Intra-op<b r>Reason for Anti-Infec tive: Surgical Prophylaxi s
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
Duration of therapy: within 24 hours of surgery lactated 2019-0 2020- No 1000mL at 20 Unive rs ringers IV 01-02 03-13 mL/hr, ity of infusion 14:00: 14:58 1,000 mL, [place] as 1,000 mL 00 :00 IV Medical Infusion, Branch ONCE, 1 dose, Mon01/03/20 at 0900, Routine, DSU Pre-op HYDROcodone 2020-0 Yes [id number] 1{tbl} Take 1 Univers -acetaminop 3-13 tablet by ity of hen 5-325 00:00: mouth [place] mg tablet 00 every 6 Medical (six) Branch hours as needed for Pain (scale 4-6) or Pain (scale 7-10). HYDROcodone 2020-0 Yes [id number] 1{tbl} Take 1 [facility] -acetaminop 3-13 tablet by ity of hen 5-325 00:00: mouth [place] mg tablet 00 every 6 Medical (six) Branch hours as needed for Pain (scale 4-6) or Pain (scale 7-10). HYDROcodone 2020-0 Yes [id number] 1{tbl} Take 1 Univers -acetaminop 3-13 tablet by ity of hen 5-325 00:00: mouth [place] mg tablet 00 every 6 Medical (six) Branch hours as needed for Pain (scale 4-6) or Pain (scale 7-10). HYDROcodone 2020-0 Yes [id number] 1{tbl} Take 1 Univers -acetaminop 3-13 tablet by ity of hen 5-325 00:00: mouth [place] mg tablet 00 every 6 Medical (six) Branch hours as needed for Pain (scale 4-6) or Pain (scale 7-10). HYDROcodone 2019- 2020- No [id number] 1{tbl} Take 1 Univers -acetaminop 3-13 03-27 tablet by it y of hen 5-325 00:00: 00:00 mouth [place] mg tablet 00 :00 every 6 Medical (six) Branch hours as needed for Pain (scale 4-6) or Pain (scale 7-10). HYDROcodone 2019- 2020- No [id number] 1{tbl} Take 1 Univers -acetaminop 3-13 03-27 tablet by it y of hen 5-325 00:00: 00:00 mouth [place] mg tablet 00 :00 every 6 Medical (six) Branch hours as needed for Pain (scale 4-6) or Pain (scale 7-10). HYDROcodone 2019-2019- No [id number] 1{tbl} Take 1 Univers -acetaminop 3-13 03-27 tablet by it y of hen 5-325 00:00: 00:00 mouth [place] mg tablet 00 :00 every 6 Medical (six) Branch hours as needed for Pain (scale 4-6) or Pain (scale 7-10). HYDROcodone 2019-2019- No [id number] 1{tbl} Take 1 Univers -acetaminop 3-13 03-27 tablet by it y of hen 5-325 00:00: 00:00 mouth [place] mg tablet 00 :00 every 6 Medical (six) Branch hours as needed for Pain (scale 4-6) or Pain (scale 7-10). ibuprofen 2020-0 Yes [id number] 600mg Take 1 [facility] 600 mg 2-21 tablet by ity of tablet 00:00: mouth [place] 00 every 6 Medical (six) Branch hours as needed (pain). Take one tablet every 6 hours for 5 days then every 6 hours as needed. ibuprofen 2020-0 Yes [id number] 600mg Take 1 [facility] 600 mg 2-21 tablet by ity of tablet 00:00: mouth [place] 00 every 6 Medical (six) Branch hours as needed (pain). Take one tablet every 6 hours for 5 days then every 6 hours as needed. ibuprofen 2020-0 Yes [id number] 600mg Take 1 [facility] 600 mg 2-21 tablet by ity of tablet 00:00: mouth [place] 00 every 6 Medical (six) Branch hours as needed (pain). Take one tablet every 6 hours for 5 days then every 6 hours as needed. ibuprofen 2020-0 Yes [id number] 600mg Take 1 [facility] 600 mg 2-21 tablet by ity of tablet 00:00: mouth [place] 00 every 6 Medical (six) Branch hours as needed (pain). Take one tablet every 6 hours for 5 days then every 6 hours as needed. ibuprofen 2020-0 Yes [id number] 600mg Take 1 [facility] 600 mg 2-21 tablet by ity of tablet 00:00: mouth [place] 00 every 6 Medical (six) Branch hours as needed (pain). Take one tablet every 6 hours for 5 days then every 6 hours as needed. ibuprofen 2020-0 Yes [id number] 600mg Take 1 [facility] 600 mg 2-21 tablet by ity of tablet 00:00: mouth [place] 00 every 6 Medical (six) Branch hours as needed (pain). Take one tablet every 6 hours for 5 days then every 6 hours as needed. ibuprofen 2020-0 Yes [id number] 600mg Take 1 [facility] 600 mg 2-21 tablet by ity of tablet 00:00: mouth [place] 00 every 6 Medical (six) Branch hours as needed (pain). Take one tablet every 6 hours for 5 days then every 6 hours as needed. ibuprofen 2020-0 Yes [id number] 600mg Take 1 [facility] 600 mg 2-21 tablet by ity of tablet 00:00: mouth [place] 00 every 6 Medical (six) Branch hours as needed (pain). Take one tablet every 6 hours for 5 days then every 6 hours as needed. ibuprofen 2020-0 Yes [id number] 600mg Take 1 [facility] 600 mg 2-21 tablet by ity of tablet 00:00: mouth [place] 00 every 6 Medical (six) Branch hours as needed (pain). Take one tablet every 6 hours for 5 days then every 6 hours as needed. ibuprofen 2020-0 Yes [id number] 600mg Take 1 [facility] 600 mg 2-21 tablet by ity of tablet 00:00: mouth [place] 00 every 6 Medical (six) Branch hours as needed (pain). Take one tablet every 6 hours for 5 days then every 6 hours as needed. ibuprofen 2020-0 Yes [id number] 600mg Take 1 [facility] 600 mg 2-21 tablet by ity of tablet 00:00: mouth [place] 00 every 6 Medical (six) Branch hours as needed (pain). Take one tablet every 6 hours for 5 days then every 6 hours as needed. ibuprofen 2020-0 Yes [id number] 600mg Take 1 [facility] 600 mg 2-21 tablet by ity of tablet 00:00: mouth [place] 00 every 6 Medical (six) Branch hours as needed (pain). Take one tablet every 6 hours for 5 days then every 6 hours as needed. ibuprofen 2020-0 Yes [id number] 600mg Take 1 [facility] 600 mg 2-21 tablet by ity of tablet 00:00: mouth [place] 00 every 6 Medical (six) Branch hours as needed (pain). Take one tablet every 6 hours for 5 days then every 6 hours as needed. ibuprofen 2020-0 Yes [id number] 600mg Take 1 [facility] 600 mg 2-21 tablet by ity of tablet 00:00: mouth [place] 00 every 6 Medical (six) Branch hours as needed (pain). Take one tablet every 6 hours for 5 days then every 6 hours as needed. ibuprofen 2020-0 Yes [id number] 600mg Take 1 [facility] 600 mg 2-21 tablet by ity of tablet 00:00: mouth [place] 00 every 6 Medical (six) Branch hours as needed (pain). Take one tablet every 6 hours for 5 days then every 6 hours as needed. ibuprofen 2020-0 Yes [id number] 600mg Take 1 [facility] 600 mg 2-21 tablet by ity of tablet 00:00: mouth [place] 00 every 6 Medical (six) Branch hours as needed (pain). Take one tablet every 6 hours for 5 days then every 6 hours as needed. ibuprofen 2020-0 Yes [id number] 600mg Take 1 [facility] 600 mg 2-21 tablet by ity of tablet 00:00: mouth [place] 00 every 6 Medical (six) Branch hours as needed (pain). Take one tablet every 6 hours for 5 days then every 6 hours as needed. ibuprofen 2020-0 Yes [id number] 600mg Take 1 [facility] 600 mg 2-21 tablet by ity of tablet 00:00: mouth [place] 00 every 6 Medical (six) Branch hours as needed (pain). Take one tablet every 6 hours for 5 days then every 6 hours as needed. ibuprofen 2020-0 Yes [id number] 600mg Take 1 [facility] 600 mg 2-21 tablet by ity of tablet 00:00: mouth [place] 00 every 6 Medical (six) Branch hours as needed (pain). Take one tablet every 6 hours for 5 days then every 6 hours as needed. ibuprofen 2020-0 Yes [id number] 600mg Take 1 [facility] 600 mg 2-21 tablet by ity of tablet 00:00: mouth [place] 00 every 6 Medical (six) Branch hours as needed (pain). Take one tablet every 6 hours for 5 days then every 6 hours as needed. ibuprofen 2020-0 Yes [id number] 600mg Take 1 [facility] 600 mg 2-21 tablet by ity of tablet 00:00: mouth [place] 00 every 6 Medical (six) Branch hours as needed (pain). Take one tablet every 6 hours for 5 days then every 6 hours as needed. ibuprofen 2020-0 Yes [id number] 600mg Take 1 [facility] 600 mg 2-21 tablet by ity of tablet 00:00: mouth [place] 00 every 6 Medical (six) Branch hours as needed (pain). Take one tablet every 6 hours for 5 days then every 6 hours as needed. ibuprofen 2020-0 Yes [id number] 600mg Take 1 [facility] 600 mg 2-21 tablet by ity of tablet 00:00: mouth [place] 00 every 6 Medical (six) Branch hours as needed (pain). Take one tablet every 6 hours for 5 days then every 6 hours as needed. ibuprofen 2020-0 Yes [id number] 600mg Take 1 [facility] 600 mg 2-21 tablet by ity of tablet 00:00: mouth [place] 00 every 6 Medical (six) Branch hours as needed (pain). Take one tablet every 6 hours for 5 days then every 6 hours as needed. ceFAZolin 2020-0 2020- No 2g Univers in dextrose 12-1018 ity of (iso-os) 06:00: 17:59 [place] (ANCEF) 2 00 :00 Medical gram/100 mL Branch Piggyback 2 g ceFAZolin 2020-0 2020- No 2g Univers in dextrose 12-10-18 ity of (iso-os) 06:00: 17:59 [place] (ANCEF) 2 00 :00 Medical gram/100 mL Branch Piggyback 2 g ceFAZolin 2020-0 2020- No 2g Univers in dextrose 12-10-18 ity of (iso-os) 06:00: 17:59 [place] (ANCEF) 2 00 :00 Medical gram/100 mL Branch Piggyback 2 g traMADol 50 2020-0 Yes [id number] 50mg Take 1 Univers mg tablet 2-09 tablet by ity o f 00:00: mouth [place] 00 every 6 Medical (six) Branch hours as needed (pain). traMADol 50 2020-0 Yes [id number] 50mg Take 1 Univers mg tablet 2-09 tablet by ity o f 00:00: mouth [place] 00 every 6 Medical (six) Branch hours as needed (pain). traMADol 50 2020-0 Yes [id number] 50mg Take 1 [facility] mg tablet 2-09 tablet by ity o f 00:00: mouth [place] 00 every 6 Medical (six) Branch hours as needed (pain). traMADol 50 2020-0 Yes [id number] 50mg Take 1 [facility] mg tablet 2-09 tablet by ity o f 00:00: mouth [place] 00 every 6 Medical (six) Branch hours as needed (pain). traMADol 50 2020-0 Yes [id number] 50mg Take 1 Univers mg tablet 2-09 tablet by ity o f 00:00: mouth [place] 00 every 6 Medical (six) Branch hours as needed (pain). traMADol 50 2020-0 Yes [id number] 50mg Take 1 [facility] mg tablet 2-09 tablet by ity o f 00:00: mouth [place] 00 every 6 Medical (six) Branch hours as needed (pain). traMADol 50 2020-0 Yes [id number] 50mg Take 1 [facility] mg tablet 2-09 tablet by ity o f 00:00: mouth [place] 00 every 6 Medical (six) Branch hours as needed (pain). traMADol 50 2020-0 Yes [id number] 50mg Take 1 [facility] mg tablet 2-09 tablet by ity o f 00:00: mouth [place] 00 every 6 Medical (six) Branch hours as needed (pain). traMADol 50 2020-0 Yes [id number] 50mg Take 1 [facility] mg tablet 2-09 tablet by ity o f 00:00: mouth [place] 00 every 6 Medical (six) Branch hours as needed (pain). traMADol 50 2020-0 Yes [id number] 50mg Take 1 [facility] mg tablet 2-09 tablet by ity o f 00:00: mouth [place] 00 every 6 Medical (six) Branch hours as needed (pain). traMADol 50 2020-0 Yes [id number] 50mg Take 1 Univers mg tablet 2-09 tablet by ity o f 00:00: mouth [place] 00 every 6 Medical (six) Branch hours as needed (pain). traMADol 50 2020-0 Yes [id number] 50mg Take 1 Univers mg tablet 2-09 tablet by ity o f 00:00: mouth [place] 00 every 6 Medical (six) Branch hours as needed (pain). traMADol 50 2020-0 Yes [id number] 50mg Take 1 [facility] mg tablet 2-09 tablet by ity o f 00:00: mouth [place] 00 every 6 Medical (six) Branch hours as needed (pain). traMADol 50 2020-0 Yes [id number] 50mg Take 1 [facility] mg tablet 2-09 tablet by ity o f 00:00: mouth [place] 00 every 6 Medical (six) Branch hours as needed (pain). traMADol 50 2020-0 Yes [id number] 50mg Take 1 [facility] mg tablet 2-09 tablet by ity o f 00:00: mouth [place] 00 every 6 Medical (six) Branch hours as needed (pain). traMADol 50 2020-0 Yes [id number] 50mg Take 1 [facility] mg tablet 2-09 tablet by ity o f 00:00: mouth [place] 00 every 6 Medical (six) Branch hours as needed (pain). traMADol 50 2020-0 Yes [id number] 50mg Take 1 [facility] mg tablet 2-09 tablet by ity o f 00:00: mouth [place] 00 every 6 Medical (six) Branch hours as needed (pain). traMADol 50 2020-0 Yes [id number] 50mg Take 1 [facility] mg tablet 2-09 tablet by ity o f 00:00: mouth [place] 00 every 6 Medical (six) Branch hours as needed (pain). traMADol 50 2020-0 Yes [id number] 50mg Take 1 [facility] mg tablet 2-09 tablet by ity o f 00:00: mouth [place] 00 every 6 Medical (six) Branch hours as needed (pain). traMADol 50 2020-0 Yes [id number] 50mg Take 1 [facility] mg tablet 2-09 tablet by ity o f 00:00: mouth [place] 00 every 6 Medical (six) Branch hours as needed (pain). traMADol 50 2020-0 Yes [id number] 50mg Take 1 [facility] mg tablet 2-09 tablet by ity o f 00:00: mouth [place] 00 every 6 Medical (six) Branch hours as needed (pain). traMADol 50 2020-0 Yes [id number] 50mg Take 1 [facility] mg tablet 2-09 tablet by ity o f 00:00: mouth [place] 00 every 6 Medical (six) Branch hours as needed (pain). traMADol 50 2020-0 Yes [id number] 50mg Take 1 [facility] mg tablet 2-09 tablet by ity o f 00:00: mouth [place] 00 every 6 Medical (six) Branch hours as needed (pain). traMADol 50 2020-0 Yes [id number] 50mg Take 1 [facility] mg tablet 2-09 tablet by ity o f 00:00: mouth [place] 00 every 6 Medical (six) Branch hours as needed (pain). traMADol 50 2020-0 Yes [id number] 50mg Take 1 [facility] mg tablet 2-09 tablet by ity o f 00:00: mouth [place] 00 every 6 Medical (six) Branch hours as needed (pain). traMADol 50 2020-0 Yes [id number] 50mg Take 1 [facility] mg tablet 2-09 tablet by ity o f 00:00: mouth [place] 00 every 6 Medical (six) Branch hours as needed (pain). traMADol 50 2020-0 Yes [id number] 50mg Take 1 [facility] mg tablet 2-09 tablet by ity o f 00:00: mouth [place] 00 every 6 Medical (six) Branch hours as needed (pain). traMADol 50 2020-0 Yes [id number] 50mg Take 1 [facility] mg tablet 2-09 tablet by ity o f 00:00: mouth [place] 00 every 6 Medical (six) Branch hours as needed (pain). traMADol 50 2020-0 Yes [id number] 50mg Take 1 [facility] mg tablet 2-09 tablet by ity o f 00:00: mouth [place] 00 every 6 Medical (six) Branch hours as needed (pain). traMADol 50 2020-0 Yes [id number] 50mg Take 1 [facility] mg tablet 2-09 tablet by ity o f 00:00: mouth [place] 00 every 6 Medical (six) Branch hours as needed (pain). traMADol 50 2020-0 Yes [id number] 50mg Take 1 [facility] mg tablet 2-09 tablet by ity o f 00:00: mouth [place] 00 every 6 Medical (six) Branch hours as needed (pain). traMADol 50 2020-0 Yes [id number] 50mg Take 1 [facility] mg tablet 2-09 tablet by ity o f 00:00: mouth [place] 00 every 6 Medical (six) Branch hours as needed (pain). traMADol 50 2020-0 Yes [id number] 50mg Take 1 [facility] mg tablet 2-09 tablet by ity o f 00:00: mouth [place] 00 every 6 Medical (six) Branch hours as needed (pain). BUPROPION 2020-0 Yes Take by Unive rs HCL ORAL 2-07 mouth. ity of 23:53: [address] BUPROPION 2020-0 Yes Take by Unive rs HCL ORAL 2-07 mouth. ity of 23:53: [address] BUPROPION 2020-0 Yes Take by Unive rs HCL ORAL 2-07 mouth. ity of 23:53: [address] BUPROPION 2020-0 Yes Take by Unive rs HCL ORAL 2-07 mouth. ity of 23:53: [address] BUPROPION 2020-0 Yes Take by Unive rs HCL ORAL 2-07 mouth. ity of 23:53: [address] BUPROPION 2020-0 Yes Take by Unive rs HCL ORAL 2-07 mouth. ity of 23:53: [address] BUPROPION 2020-0 Yes Take by Unive rs HCL ORAL 2-07 mouth. ity of 23:53: [address] BUPROPION 2020-0 Yes Take by Unive rs HCL ORAL 2-07 mouth. ity of 23:53: [address] BUPROPION 2020-0 Yes Take by Unive rs HCL ORAL 2-07 mouth. ity of 23:53: [address] BUPROPION 2020-0 Yes Take by Unive rs HCL ORAL 2-07 mouth. ity of 23:53: [address] BUPROPION 2020-0 Yes Take by Unive rs HCL ORAL 2-07 mouth. ity of 23:53: [address] ACETAMINOPH 2020-0 Yes Take by Uni vers EN EXTRA 2-07 mouth. ity of STRENGTH 23:03: [address] ACETAMINOPH 2020-0 Yes Take by Uni vers EN EXTRA 2-07 mouth. ity of STRENGTH 23:03: [address] ACETAMINOPH 2020-0 Yes Take by Uni vers EN EXTRA 2-07 mouth. ity of STRENGTH 23:03: [place] ORAL 45 Medical Branch ACETAMINOPH 2020-0 Yes Take by Uni vers EN EXTRA 2-07 mouth. ity of STRENGTH 23:03: [place] [address] Medical Branch ACETAMINOPH 2020-0 Yes Take by Uni vers EN EXTRA 2-07 mouth. ity of STRENGTH 23:03: [place] [address] Medical Branch ACETAMINOPH 2020-0 Yes Take by Uni vers EN EXTRA 2-07 mouth. ity of STRENGTH 23:03: [place] [address] Medical Branch ACETAMINOPH 2020-0 Yes Take by Uni vers EN EXTRA 2-07 mouth. ity of STRENGTH 23:03: [place] [address] Medical Branch ACETAMINOPH 2020-0 Yes Take by Uni vers EN EXTRA 2-07 mouth. ity of STRENGTH 23:03: [place] [address] Medical Branch ACETAMINOPH 2020-0 Yes Take by Uni vers EN EXTRA 2-07 mouth. ity of STRENGTH 23:03: [place] [address] Medical Branch ACETAMINOPH 2020-0 Yes Take by Uni vers EN EXTRA 2-07 mouth. ity of STRENGTH 23:03: [place] [address] Medical Branch ACETAMINOPH 2020-0 Yes Take by Uni vers EN EXTRA 2-07 mouth. ity of STRENGTH 23:03: [place] [address] Medical Branch gabapentin 2020-0 Yes [id number] 300mg Take 1 [facility] 300 mg 2-07 capsule by ity of capsule 00:00: mouth 3 [place] 00 (three) Medical times Branch daily. acetaminoph 2020-0 Yes [id number] 1000mg Take 2 [facility] en (TYLENOL 2-07 tablets by it y of EXTRA 00:00: mouth [place] STRENGTH) 00 every 6 Medical 500 mg (six) Branch tablet hours. celecoxib 2020-0 Yes [id number] 200mg Take 1 [facility] (CELEBREX) 2-07 capsule by ity of 200 mg 00:00: mouth 2 [place] capsule 00 (two) Medical times Branch daily with meals. gabapentin 2020-0 Yes [id number] 300mg Take 1 [facility] 300 mg 2-07 capsule by ity of capsule 00:00: mouth 3 [place] 00 (three) Medical times Branch daily. acetaminoph 2020-0 Yes [id number] 1000mg Take 2 [facility] en (TYLENOL 2-07 tablets by it y of EXTRA 00:00: mouth [place] STRENGTH) 00 every 6 Medical 500 mg (six) Branch tablet hours. celecoxib 2020-0 Yes [id number] 200mg Take 1 [facility] (CELEBREX) 2-07 capsule by ity of 200 mg 00:00: mouth 2 [place] capsule 00 (two) Medical times Branch daily with meals. gabapentin 2020-0 Yes [id number] 300mg Take 1 [facility] 300 mg 2-07 capsule by ity of capsule 00:00: mouth 3 [place] 00 (three) Medical times Branch daily. acetaminoph 2020-0 Yes [id number] 1000mg Take 2 [facility] en (TYLENOL 2-07 tablets by it y of EXTRA 00:00: mouth [place] STRENGTH) 00 every 6 Medical 500 mg (six) Branch tablet hours. celecoxib 2020-0 Yes [id number] 200mg Take 1 [facility] (CELEBREX) 2-07 capsule by ity of 200 mg 00:00: mouth 2 [place] capsule 00 (two) Medical times Branch daily with meals. gabapentin 2020-0 Yes [id number] 300mg Take 1 [facility] 300 mg 2-07 capsule by ity of capsule 00:00: mouth 3 [place] 00 (three) Medical times Branch daily. acetaminoph 2020-0 Yes [id number] 1000mg Take 2 [facility] en (TYLENOL 2-07 tablets by it y of EXTRA 00:00: mouth [place] STRENGTH) 00 every 6 Medical 500 mg (six) Branch tablet hours. celecoxib 2020-0 Yes [id number] 200mg Take 1 [facility] (CELEBREX) 2-07 capsule by ity of 200 mg 00:00: mouth 2 [place] capsule 00 (two) Medical times Branch daily with meals. gabapentin 2020-0 Yes [id number] 300mg Take 1 [facility] 300 mg 2-07 capsule by ity of capsule 00:00: mouth 3 [place] 00 (three) Medical times Branch daily. acetaminoph 2020-0 Yes [id number] 1000mg Take 2 [facility] en (TYLENOL 2-07 tablets by it y of EXTRA 00:00: mouth [place] STRENGTH) 00 every 6 Medical 500 mg (six) Branch tablet hours. celecoxib 2020-0 Yes [id number] 200mg Take 1 [facility] (CELEBREX) 2-07 capsule by ity of 200 mg 00:00: mouth 2 [place] capsule 00 (two) Medical times Branch daily with meals. gabapentin 2020-0 Yes [id number] 300mg Take 1 [facility] 300 mg 2-07 capsule by ity of capsule 00:00: mouth 3 [place] 00 (three) Medical times Branch daily. acetaminoph 2020-0 Yes [id number] 1000mg Take 2 [facility] en (TYLENOL 2-07 tablets by it y of EXTRA 00:00: mouth [place] STRENGTH) 00 every 6 Medical 500 mg (six) Branch tablet hours. celecoxib 2020-0 Yes [id number] 200mg Take 1 [facility] (CELEBREX) 2-07 capsule by ity of 200 mg 00:00: mouth 2 [place] capsule 00 (two) Medical times Branch daily with meals. gabapentin 2020-0 Yes [id number] 300mg Take 1 [facility] 300 mg 2-07 capsule by ity of capsule 00:00: mouth 3 [place] 00 (three) Medical times Branch daily. acetaminoph 2020-0 Yes [id number] 1000mg Take 2 [facility] en (TYLENOL 2-07 tablets by it y of EXTRA 00:00: mouth [place] STRENGTH) 00 every 6 Medical 500 mg (six) Branch tablet hours. celecoxib 2020-0 Yes [id number] 200mg Take 1 [facility] (CELEBREX) 2-07 capsule by ity of 200 mg 00:00: mouth 2 [place] capsule 00 (two) Medical times Branch daily with meals. gabapentin 2020-0 Yes [id number] 300mg Take 1 [facility] 300 mg 2-07 capsule by ity of capsule 00:00: mouth 3 [place] 00 (three) Medical times Branch daily. acetaminoph 2020-0 Yes [id number] 1000mg Take 2 Univers en (TYLENOL 2-07 tablets by it y of EXTRA 00:00: mouth [place] STRENGTH) 00 every 6 Medical 500 mg (six) Branch tablet hours. celecoxib 2020-0 Yes [id number] 200mg Take 1 [facility] (CELEBREX) 2-07 capsule by ity of 200 mg 00:00: mouth 2 [place] capsule 00 (two) Medical times Branch daily with meals. gabapentin 2020-0 Yes [id number] 300mg Take 1 [facility] 300 mg 2-07 capsule by ity of capsule 00:00: mouth 3 [place] 00 (three) Medical times Branch daily. acetaminoph 2020-0 Yes [id number] 1000mg Take 2 [facility] en (TYLENOL 2-07 tablets by it y of EXTRA 00:00: mouth [place] STRENGTH) 00 every 6 Medical 500 mg (six) Branch tablet hours. celecoxib 2020-0 Yes [id number] 200mg Take 1 [facility] (CELEBREX) 2-07 capsule by ity of 200 mg 00:00: mouth 2 [place] capsule 00 (two) Medical times Branch daily with meals. gabapentin 2020-0 Yes [id number] 300mg Take 1 [facility] 300 mg 2-07 capsule by ity of capsule 00:00: mouth 3 [place] 00 (three) Medical times Branch daily. acetaminoph 2020-0 Yes [id number] 1000mg Take 2 [facility] en (TYLENOL 2-07 tablets by it y of EXTRA 00:00: mouth [place] STRENGTH) 00 every 6 Medical 500 mg (six) Branch tablet hours. celecoxib 2020-0 Yes [id number] 200mg Take 1 [facility] (CELEBREX) 2-07 capsule by ity of 200 mg 00:00: mouth 2 [place] capsule 00 (two) Medical times Branch daily with meals. gabapentin 2020-0 Yes [id number] 300mg Take 1 [facility] 300 mg 2-07 capsule by ity of capsule 00:00: mouth 3 [place] 00 (three) Medical times Branch daily. acetaminoph 2020-0 Yes [id number] 1000mg Take 2 [facility] en (TYLENOL 2-07 tablets by it y of EXTRA 00:00: mouth [place] STRENGTH) 00 every 6 Medical 500 mg (six) Branch tablet hours. celecoxib 2020-0 Yes [id number] 200mg Take 1 [facility] (CELEBREX) 2-07 capsule by ity of 200 mg 00:00: mouth 2 [place] capsule 00 (two) Medical times Branch daily with meals. gabapentin 2020-0 Yes [id number] 300mg Take 1 [facility] 300 mg 2-07 capsule by ity of capsule 00:00: mouth 3 [place] 00 (three) Medical times Branch daily. acetaminoph 2020-0 Yes [id number] 1000mg Take 2 [facility] en (TYLENOL 2-07 tablets by it y of EXTRA 00:00: mouth [place] STRENGTH) 00 every 6 Medical 500 mg (six) Branch tablet hours. celecoxib 2020-0 Yes [id number] 200mg Take 1 [facility] (CELEBREX) 2-07 capsule by ity of 200 mg 00:00: mouth 2 [place] capsule 00 (two) Medical times Branch daily with meals. gabapentin 2020-0 Yes [id number] 300mg Take 1 [facility] 300 mg 2-07 capsule by ity of capsule 00:00: mouth 3 [place] 00 (three) Medical times Branch daily. acetaminoph 2020-0 Yes [id number] 1000mg Take 2 [facility] en (TYLENOL 2-07 tablets by it y of EXTRA 00:00: mouth [place] STRENGTH) 00 every 6 Medical 500 mg (six) Branch tablet hours. celecoxib 2020-0 Yes [id number] 200mg Take 1 [facility] (CELEBREX) 2-07 capsule by ity of 200 mg 00:00: mouth 2 [place] capsule 00 (two) Medical times Branch daily with meals. gabapentin 2020-0 Yes [id number] 300mg Take 1 [facility] 300 mg 2-07 capsule by ity of capsule 00:00: mouth 3 [place] 00 (three) Medical times Branch daily. acetaminoph 2020-0 Yes [id number] 1000mg Take 2 [facility] en (TYLENOL 2-07 tablets by it y of EXTRA 00:00: mouth [place] STRENGTH) 00 every 6 Medical 500 mg (six) Branch tablet hours. celecoxib 2020-0 Yes [id number] 200mg Take 1 [facility] (CELEBREX) 2-07 capsule by ity of 200 mg 00:00: mouth 2 [place] capsule 00 (two) Medical times Branch daily with meals. gabapentin 2020-0 Yes [id number] 300mg Take 1 [facility] 300 mg 2-07 capsule by ity of capsule 00:00: mouth 3 [place] 00 (three) Medical times Branch daily. acetaminoph 2020-0 Yes [id number] 1000mg Take 2 [facility] en (TYLENOL 2-07 tablets by it y of EXTRA 00:00: mouth [place] STRENGTH) 00 every 6 Medical 500 mg (six) Branch tablet hours. celecoxib 2020-0 Yes [id number] 200mg Take 1 [facility] (CELEBREX) 2-07 capsule by ity of 200 mg 00:00: mouth 2 [place] capsule 00 (two) Medical times Branch daily with meals. gabapentin 2020-0 Yes [id number] 300mg Take 1 [facility] 300 mg 2-07 capsule by ity of capsule 00:00: mouth 3 [place] 00 (three) Medical times Branch daily. acetaminoph 2020-0 Yes [id number] 1000mg Take 2 [facility] en (TYLENOL 2-07 tablets by it y of EXTRA 00:00: mouth [place] STRENGTH) 00 every 6 Medical 500 mg (six) Branch tablet hours. celecoxib 2020-0 Yes [id number] 200mg Take 1 [facility] (CELEBREX) 2-07 capsule by ity of 200 mg 00:00: mouth 2 [place] capsule 00 (two) Medical times Branch daily with meals. gabapentin 2020-0 2020- No [id number] 300mg Take 1 [facility] 300 mg 2-07 03-27 capsule by ity of capsule 00:00: 00:00 mouth 3 [place] 00 :00 (three) Medical times Branch daily. acetaminoph 2020-0 2020- No [id number] 1000mg Take 2 [facility] en (TYLENOL 11-29 tablets by i ty of EXTRA 00:00: 00:00 mouth [place] STRENGTH) 00 :00 every 6 Medical 500 mg (six) Branch tablet hours. celecoxib 2020-0 2020- No [id number] 200mg Take 1 [facility] (CELEBREX) 11-29 capsule by it y of 200 mg 00:00: 00:00 mouth 2 [place] capsule 00 :00 (two) Medical times Branch daily with meals. gabapentin 2020-0 2020- No [id number] 300mg Take 1 [facility] 300 mg 11-29 capsule by ity of capsule 00:00: 00:00 mouth 3 [place] 00 :00 (three) Medical times Branch daily. acetaminoph 2020-0 2020- No [id number] 1000mg Take 2 [facility] en (TYLENOL 11-29 tablets by i ty of EXTRA 00:00: 00:00 mouth [place] STRENGTH) 00 :00 every 6 Medical 500 mg (six) Branch tablet hours. celecoxib 2019-0 2020- No [id number] 200mg Take 1 [facility] (CELEBREX) 11-29 capsule by it y of 200 mg 00:00: 00:00 mouth 2 [place] capsule 00 :00 (two) Medical times Branch daily with meals. gabapentin 2019- 2020- No [id number] 300mg Take 1 [facility] 300 mg 11-29 capsule by ity of capsule 00:00: 00:00 mouth 3 [place] 00 :00 (three) Medical times Branch daily. acetaminoph 2020-0 2020- No [id number] 1000mg Take 2 [facility] en (TYLENOL 11-29 tablets by i ty of EXTRA 00:00: 00:00 mouth [place] STRENGTH) 00 :00 every 6 Medical 500 mg (six) Branch tablet hours. celecoxib 2020-0 2020- No [id number] 200mg Take 1 [facility] (CELEBREX) 11-29 capsule by it y of 200 mg 00:00: 00:00 mouth 2 [place] capsule 00 :00 (two) Medical times Branch daily with meals. gabapentin 2020-0 2020- No [id number] 300mg Take 1 [facility] 300 mg 11-29 capsule by ity of capsule 00:00: 00:00 mouth 3 [place] 00 :00 (three) Medical times Branch daily. acetaminoph 2019- 2020- No [id number] 1000mg Take 2 [facility] en (TYLENOL 11-29 tablets by i ty of EXTRA 00:00: 00:00 mouth [place] STRENGTH) 00 :00 every 6 Medical 500 mg (six) Branch tablet hours. celecoxib 2019- 2020- No [id number] 200mg Take 1 [facility] (CELEBREX) 11-29 capsule by it y of 200 mg 00:00: 00:00 mouth 2 [place] capsule 00 :00 (two) Medical times Branch daily with meals. traMADol 50 2019-0 Yes [id number] 50mg Take 1 [facility] mg tablet 1-28 tablet by ity o f 00:00: mouth [place] 00 every 8 Medical (eight) Branch hours as needed (pain). traMADol 50 2019-0 Yes [id number] 50mg Take 1 [facility] mg tablet 1-28 tablet by ity o f 00:00: mouth [place] 00 every 8 Medical (eight) Branch hours as needed (pain). traMADol 50 2019-0 Yes [id number] 50mg Take 1 [facility] mg tablet -28 tablet by ity o f 00:00: mouth [place] 00 every 8 Medical (eight) Branch hours as needed (pain). traMADol 50 2019-0 2020- No [id number] 50mg Take 1 [facility] mg tablet -20 12- tablet by ity of 00:00: 00:00 mouth [place] 00 :00 every 8 Medical (eight) Branch hours as needed (pain). traMADol 50 2019-0 2020- No [id number] 50mg Take 1 [facility] mg tablet -20 12- tablet by ity of 00:00: 00:00 mouth [place] 00 :00 every 8 Medical (eight) Branch hours as needed (pain). traMADol 50 2020-0 2020- No [id number] 50mg Take 1 [facility] mg tablet -20 [...] Medical Fri Branch 11/15/19 at 1830, Routine
food service team member approving Restricted medication : [...] Medical Fri Branch 11/15/19 at 1830, Routine
food service team member approving Restricted medication : JOSE CARLOSSONDRA [place] [...] 25 :00 Medical Branch doxycycline 2020-0 Yes [id number] 100mg Take 1 [facility] 100 mg 1-24 tablet by ity of tablet 00:00: mouth 2 (two) Medical times Branch daily. doxycycline 2020-0 Yes [id number] 100mg Take 1 [facility] 100 mg 1-24 tablet by ity of tablet 00:00: mouth 2 (two) Medical times Branch daily. doxycycline 2020-0 Yes [id number] 100mg Take 1 [facility] 100 mg 1-24 tablet by ity of tablet 00:00: mouth 2 (two) Medical times Branch daily. doxycycline 2020-0 Yes [id number] 100mg Take 1 [facility] 100 mg 1-24 tablet by ity of tablet 00:00: mouth 2 [place] 00 (two) Medical times Branch daily. doxycycline 2020-0 Yes [id number] 100mg Take 1 [facility] 100 mg 1-24 tablet by ity of tablet 00:00: mouth 2 [place] 00 (two) Medical times Branch daily. doxycycline 2020-0 Yes [id number] 100mg Take 1 [facility] 100 mg 1-24 tablet by ity of tablet 00:00: mouth 2 [place] 00 (two) Medical times Branch daily. doxycycline 2020-0 Yes [id number] 100mg Take 1 [facility] 100 mg 1-24 tablet by ity of tablet 00:00: mouth 2 [place] 00 (two) Medical times Branch daily. doxycycline 2020-0 Yes [id number] 100mg Take 1 [facility] 100 mg 1-24 tablet by ity of tablet 00:00: mouth 2 [place] 00 (two) Medical times Branch daily. doxycycline 2020-0 Yes [id number] 100mg Take 1 [facility] 100 mg 1-24 tablet by ity of tablet 00:00: mouth 2 [place] 00 (two) Medical times Branch daily. doxycycline 2020-0 2020- No [id number] 100mg Take 1 [facility] 100 mg 1-24 02-07 tablet by ity of tablet 00:00: 00:00 mouth 2 [place] 00 :00 (two) Medical times Branch daily. doxycycline 2020-0 2020- No [id number] 100mg Take 1 [facility] 100 mg 1-24 02-07 tablet by ity of tablet 00:00: 00:00 mouth 2 [place] 00 :00 (two) Medical times Branch daily. doxycycline 2020-0 2020- No [id number] 100mg Take 1 [facility] 100 mg 1-24 02-07 tablet by ity of tablet 00:00: 00:00 mouth 2 [place] 00 :00 (two) Medical times Branch daily. Kenalog Kenalog 2018- No 40mg Common (Triamcinol (Triamcinol 2-03 S pirit one) one) 00:00: - [facility] 00 [facility] Kenalog Kenalog 2018- No 40mg Common (Triamcinol (Triamcinol 2-03 S pirit one) one) 00:00: - [facility] 00 [facility] Kenalog Kenalog 2018- No 40mg Common (Triamcinol (Triamcinol 2-03 S pirit one) one) 00:00: - [facility] 00 [facility] Kenalog Kenalog 2018- No 40mg Common (Triamcinol (Triamcinol 2-03 S pirit one) one) 00:00: - [facility] 00 [facility] Kenfernandez Kenalog 2019-1 No 40mg Common (Triamcinol (Triamcinol 2-03 S pirit one) one) 00:00: - [facility] 00 [facility] Britany Kenalog 2019-1 No 40mg Common (Triamcinol (Triamcinol 2-03 S pirit one) one) 00:00: - [facility] 00 [facility] Kenfernandez Kenalog 2019-1 No 40mg Common (Triamcinol (Triamcinol 2-03 S pirit one) one) 00:00: - [facility] 00 [facility] Kenfernandez Kenfernandez 2019-1 No 40mg Common (Triamcinol (Triamcinol 2-03 S pirit one) one) 00:00: - [facility] 00 [facility] Kenfernandez Kenfernandez 2019-1 No 40mg Common (Triamcinol (Triamcinol 2-03 S pirit one) one) 00:00: - [facility] 00 [facility] Kenfernandez Kenalog 2019-1 No 40mg Common (Triamcinol (Triamcinol 2-03 S pirit one) one) 00:00: - [facility] 00 [facility] Kenfernandez Kenfernandez 2019-1 No 40mg Common (Triamcinol (Triamcinol 2-03 S pirit one) one) 00:00: - [facility] 00 [facility] Kenfernandez Kenalog 2019-1 No 40mg Common (Triamcinol (Triamcinol 2-03 S pirit one) one) 00:00: - [facility] 00 [facility] Kenfernandez Kenalog 2019-1 No 40mg Common (Triamcinol (Triamcinol 2-03 S pirit one) one) 00:00: - [facility] 00 [facility] Kenfernandez Kenalog 2019-1 No 40mg Common (Triamcinol (Triamcinol 2-03 S pirit one) one) 00:00: - [facility] 00 [facility] Kenfernandez Kenalog 2019-1 No 40mg Common (Triamcinol (Triamcinol 2-03 S pirit one) one) 00:00[facility] Common (Triamcinol (Triamcinol 2-03 S pirit one) one) 00:00: - [facility] 00 [facility] Britany Kenfernandez 2019- No 40mg Common (Triamcinol (Triamcinol 2-03 S pirit one) one) 00:00: - [facility] 00 [facility] Britany Kenfernandez 2019- No 40mg Common (Triamcinol (Triamcinol 2-03 S pirit one) one) 00:00: - [facility] 00 [facility] Britany Kenfernandez 2019- No 40mg Common (Triamcinol (Triamcinol 2-03 S pirit one) one) 00:00: - [facility] 00 [facility] Britany Kenfernandez 2019- No 40mg Common (Triamcinol (Triamcinol 2-03 S pirit one) one) 00:00: - [facility] 00 [facility] Brit[place] Kenfernandez 2019- No 40mg Common (Triamcinol (Triamcinol 2-03 S pirit one) one) 00:00: - [facility] 00 [facility] Brit[place] Kenfernandez 2019- No 40mg Common (Triamcinol (Triamcinol 2-03 S pirit one) one) 00:00: - [facility] 00 [facility] Brit[place] Kenfernandez 2019- No 40mg Common (Triamcinol (Triamcinol 2-03 S pirit one) one) 00:00: - [facility] 00 [facility] Kenfernandez 2019- No 40mg Common (Triamcinol (Triamcinol 2-03 S pirit one) one) 00:00: - [facility] 00 [facility] [place] Kenfernandez 2019-1 No 40mg Common (Triamcinol (Triamcinol 2-03 S pirit one) one) 00:00: - [facility] 00 [facility] Kenfernandez 2019-1 No 40mg Common (Triamcinol (Triamcinol 2-03 S pirit one) one) 00:00: - [facility] 00 [facility] [place] Kenfernandez 2019- No 40mg Common (Triamcinol (Triamcinol 2-03 S pirit one) one) 00:00: - [facility] 00 [facility] [place] Kenalog 2018- No 40mg Common (Triamcinol (Triamcinol 0-22 S pirit one) one) 00:00: - [facility] 00 [facility] [place] Kenalog 2018- No 40mg Common (Triamcinol (Triamcinol 0-22 S pirit one) one) 00:00: - [facility] 00 [facility] Kenfernandez 2018- No 40mg Common (Triamcinol (Triamcinol 0-22 S pirit one) one) 00:00: - [facility] 00 [facility] Kenfernandez 2018- No 40mg Common (Triamcinol (Triamcinol 0-22 S pirit one) one) 00:00: - [facility] 00 [facility] Kenfernandez 2018- No 40mg Common (Triamcinol (Triamcinol 0-22 S pirit one) one) 00:00: - [facility] 00 [facility] Kenfernandez 2018- No 40mg Common (Triamcinol (Triamcinol 0-22 S pirit one) one) 00:00: - [facility] 00 [facility] Kenfernandez 2018- No 40mg Common (Triamcinol (Triamcinol 0-22 S pirit one) one) 00:00: - [facility] 00 [facility] [place] Kenfernandez 2018- No 40mg Common (Triamcinol (Triamcinol 0-22 S pirit one) one) 00:00: - [facility] 00 [facility] Kenfernandez 2018- No 40mg Common (Triamcinol (Triamcinol 0-22 S pirit one) one) 00:00: - [facility] 00 [facility] Kenfernandez 2019- No 40mg Common (Triamcinol (Triamcinol 0-22 S pirit one) one) 00:00: - [facility] 00 [facility] Kenalog 2018- No 40mg Common (Triamcinol (Triamcinol 0-22 S pirit one) one) 00:00: - [facility] 00 [facility] Kenalog 2019- No 40mg Common (Triamcinol (Triamcinol 0-22 S pirit one) one) 00:00: - [facility] 00 [facility] [place] Kenalog 2019- No 40mg Common (Triamcinol (Triamcinol 0-22 S pirit one) one) 00:00: - [facility] 00 [facility] [place] Kenalog 2019- No 40mg Common (Triamcinol (Triamcinol 0-22 S pirit one) one) 00:00: - [facility] 00 [facility] Kenfernandez 2019- No 40mg Common (Triamcinol (Triamcinol 0-22 S pirit one) one) 00:00: - [facility] 00 [facility] Kenfernandez 2019- No 40mg Common (Triamcinol (Triamcinol 0-22 S pirit one) one) 00:00: - [facility] 00 [facility] Kenfernandez 2019- No 40mg Common (Triamcinol (Triamcinol 0-22 S pirit one) one) 00:00: - [facility] 00 [facility] Kenfernandez 2019- No 40mg Common (Triamcinol (Triamcinol 0-22 S pirit one) one) 00:00: - [facility] 00 [facility] Kenfernandez 2019- No 40mg Common (Triamcinol (Triamcinol 0-22 S pirit one) one) 00:00: - [facility] 00 [facility] Kenfernnadez 2019- No 40mg Common (Triamcinol (Triamcinol 0-22 S pirit one) one) 00:00: - [facility] 00 [facility] Kenfernandez 2019- No 40mg Common (Triamcinol (Triamcinol 0-22 S pirit one) one) 00:00: - [facility] 00 [facility] Kenfernandez 2019- No 40mg Common (Triamcinol (Triamcinol 0-22 S pirit one) one) 00:00: - [facility] 00 [facility] [place] Kenalog 2019- No 40mg Common (Triamcinol (Triamcinol 0-22 S pirit one) one) 00:00: - [facility] 00 [facility] Garg 2018- No 40mg Common (Triamcinol (Triamcinol 0-22 S pirit one) one) 00:00: - [facility] 00 [facility] Brit[place] Garg 2018- No 40mg Common (Triamcinol (Triamcinol 0-22 S pirit one) one) 00:00: - [facility] Brit[place] Garg 2018- No 40mg Common (Triamcinol (Triamcinol 0-22 S pirit one) one) 00:00: - [facility] 00 [facility] Brit[place] Garg 2018- No 40mg Common (Triamcinol (Triamcinol 0-22 S pirit one) one) 00:00: - [facility] medroxyPROG 2019- No 150mg Univ ers [...] mouth. ity of 3 mg Tab 15:15: [address] plecanatide Yes Take by Uni vers (TRULANCE) 8-16 mouth. ity of 3 mg Tab 15:15: [address] plecanatide Yes Take by Uni vers (TRULANCE) 8-16 mouth. ity of 3 mg Tab 15:15: [address] plecanatide Yes Take by Uni vers (TRULANCE) 8-16 mouth. ity of 3 mg Tab 15:15: [address] Branch linaCLOtide Yes Univer s (LINZESS) 7-20 ity of 72 mcg Cap 00:00: [place] [address] Medical Branch linaCLOtide 2018- Yes Univer s (LINZESS) 7-20 ity of 72 mcg Cap 00:00: [place] [address] Medical Branch linaCLOtide 2019-0 Yes Univer s (LINZESS) 7-20 ity of 72 mcg Cap 00:00: [place] [address] Medical Branch linaCLOtide 2019-0 Yes Univer s (LINZESS) 7-20 ity of 72 mcg Cap 00:00: [place] [address] Medical Branch linaCLOtide 2019-0 Yes Univer s (LINZESS) 7-20 ity of 72 mcg Cap 00:00: [place] [address] Medical Branch linaCLOtide 2019-0 Yes Univer s (LINZESS) 7-20 ity of 72 mcg Cap 00:00: [place] [address] Medical Branch linaCLOtide 2019-0 Yes Univer s (LINZESS) 7-20 ity of 72 mcg Cap 00:00: [place] [address] Medical Branch linaCLOtide 2019-0 Yes Univer s (LINZESS) 7-20 ity of 72 mcg Cap 00:00: [place] [address] Medical Branch linaCLOtide 2019-0 Yes Univer s (LINZESS) 7-20 ity of 72 mcg Cap 00:00: [place] [address] Medical Branch linaCLOtide 2019-0 Yes Univer s (LINZESS) 7-20 ity of 72 mcg Cap 00:00: [place] [address] Medical Branch linaCLOtide 2019-0 Yes Univer s (LINZESS) 7-20 ity of 72 mcg Cap 00:00: [place] [address] Medical Branch linaCLOtide 2019-0 Yes Univer s (LINZESS) 7-20 ity of 72 mcg Cap 00:00: [place] [address] Medical Branch linaCLOtide 2019-0 Yes Univer s (LINZESS) 7-20 ity of 72 mcg Cap 00:00: [place] [address] Medical Branch linaCLOtide 2019-0 Yes Univer s (LINZESS) 7-20 ity of 72 mcg Cap 00:00: [place] [address] Medical Branch linaCLOtide 2019-0 Yes Univer s (LINZESS) 7-20 ity of 72 mcg Cap 00:00: [place] [address] Medical Branch linaCLOtide 2019-0 Yes Univer s (LINZESS) 7-20 ity of 72 mcg Cap 00:00: [place] [address] Medical Branch linaCLOtide 2019-0 Yes Univer s (LINZESS) 7-20 ity of 72 mcg Cap 00:00: [place] [address] Medical Branch linaCLOtide 2019-0 Yes Univer s (LINZESS) 7-20 ity of 72 mcg Cap 00:00: [place] [address] Medical Branch linaCLOtide 2019-0 Yes Univer s (LINZESS) 7-20 ity of 72 mcg Cap 00:00: [place] [address] Medical Branch linaCLOtide 2019-0 Yes Univer s (LINZESS) 7-20 ity of 72 mcg Cap 00:00: [place] [address] Medical Branch linaCLOtide 2019-0 Yes Univer s (LINZESS) 7-20 ity of 72 mcg Cap 00:00: [place] [address] Medical Branch linaCLOtide 2019-0 Yes Univer s (LINZESS) 7-20 ity of 72 mcg Cap 00:00: [place] [address] Medical Branch linaCLOtide 2019-0 Yes Univer s (LINZESS) 7-20 ity of 72 mcg Cap 00:00: [place] [address] Medical Branch linaCLOtide 2019-0 Yes Univer s (LINZESS) 7-20 ity of 72 mcg Cap 00:00: [place] [address] Medical Branch linaCLOtide 2019-0 Yes Univer s (LINZESS) 7-20 ity of 72 mcg Cap 00:00: [place] [address] Medical Branch linaCLOtide 2019-0 Yes Univer s (LINZESS) 7-20 ity of 72 mcg Cap 00:00: [place] [address] Medical Branch linaCLOtide 2019-0 Yes Univer s (LINZESS) 7-20 ity of 72 mcg Cap 00:00: [place] [address] Medical Branch linaCLOtide 2019-0 Yes Univer s (LINZESS) 7-20 ity of 72 mcg Cap 00:00: [place] [address] Medical Branch linaCLOtide 2019-0 Yes Univer s (LINZESS) 7-20 ity of 72 mcg Cap 00:00: [place] [address] Medical Branch linaCLOtide 2019-0 Yes Univer s (LINZESS) 7-20 ity of 72 mcg Cap 00:00: [place] [address] Medical Branch linaCLOtide 2019-0 Yes Univer s (LINZESS) 7-20 ity of 72 mcg Cap 00:00: [place] [address] Medical Branch linaCLOtide 2019-0 Yes Univer s (LINZESS) 7-20 ity of 72 mcg Cap 00:00: [place] [address] Medical Branch linaCLOtide 2019-0 Yes Univer s (LINZESS) 7-20 ity of 72 mcg Cap 00:00: [place] [address] Medical Branch linaCLOtide 2019-0 Yes Univer s (LINZESS) 7-20 ity of 72 mcg Cap 00:00: [place] [address] Medical Branch linaCLOtide 2019-0 Yes Univer s (LINZESS) 7-20 ity of 72 mcg Cap 00:00: [place] [facility] linaCLOtide 2019-0 Yes Univer s (LINZESS) 7-20 ity of 72 mcg Cap 00:00: [place] [address] Medical Branch linaCLOtide 2019-0 Yes Univer s (LINZESS) 7-20 ity of 72 mcg Cap 00:00: [place] [address] Medical Branch linaCLOtide 2019-0 Yes Univer s (LINZESS) 7-20 ity of 72 mcg Cap 00:00: [place] [address] Medical Branch linaCLOtide 2019-0 Yes Univer s (LINZESS) 7-20 ity of 72 mcg Cap 00:00: [place] [address] Medical Branch linaCLOtide 2019-0 Yes Univer s (LINZESS) 7-20 ity of 72 mcg Cap 00:00: [place] [address] Medical Branch linaCLOtide 2019-0 Yes Univer s (LINZESS) 7-20 ity of 72 mcg Cap 00:00: [place] [address] Medical Branch linaCLOtide 2019-0 Yes Univer s (LINZESS) 7-20 ity of 72 mcg Cap 00:00: [place] [address] Medical Branch linaCLOtide 2019-0 Yes Univer s (LINZESS) 7-20 ity of 72 mcg Cap 00:00: [place] [address] Medical Branch linaCLOtide 2019-0 Yes Univer s (LINZESS) 7-20 ity of 72 mcg Cap 00:00: [place] [address] Medical Branch linaCLOtide 2019-0 Yes Univer s (LINZESS) 7-20 ity of 72 mcg Cap 00:00: [place] [address] Medical Branch linaCLOtide 2019-0 Yes Univer s (LINZESS) 7-20 ity of 72 mcg Cap 00:00: [place] [address] Medical Branch linaCLOtide 2019-0 Yes Univer s (LINZESS) 7-20 ity of 72 mcg Cap 00:00: [place] [address] Medical Branch linaCLOtide 2019-0 Yes Univer s (LINZESS) 7-20 ity of 72 mcg Cap 00:00: [place] [address] Medical Branch metroNIDAZO 2019-0 Yes [id number] 500mg Take 1 [facility] LE (FLAGYL) 6-26 tablet by ity of 500 mg 00:00: mouth 2 [place] tablet 00 (two) Medical times Branch daily. metroNIDAZO 2018- Yes [id number] 500mg Take 1 [facility] LE (FLAGYL) 6-26 tablet by ity of 500 mg 00:00: mouth 2 [place] tablet 00 (two) Medical times Branch daily. metroNIDAZO 2018- Yes [id number] 500mg Take 1 [facility] LE (FLAGYL) 6-26 tablet by ity of 500 mg 00:00: mouth 2 [place] tablet 00 (two) Medical times Branch daily. metroNIDAZO Yes [id number] 500mg Take 1 [facility] LE (FLAGYL) 6-26 tablet by ity of 500 mg 00:00: mouth 2 [place] tablet 00 (two) Medical times Branch daily. metroNIDAZO 2020- No [id number] 500mg Take 1 [facility] LE (FLAGYL) 6-26 01-24 tablet by it y of 500 mg 00:00: 00:00 mouth 2 [place] tablet 00 :00 (two) Medical times Branch daily. metroNIDAZO 2020- No [id number] 500mg Take 1 [facility] LE (FLAGYL) 6-26 01-24 tablet by it y of 500 mg 00:00: 00:00 mouth 2 [place] tablet 00 :00 (two) Medical times Branch daily. OMEPRAZOLE Yes 40mg Take 40 mg U nivers ORAL 6-19 by mouth. ity of 15:31: [address] ACETAMINOPH Yes Take by Uni vers EN EXTRA 6-19 mouth. ity of STRENGTH 15:31: [address] OMEPRAZOLE Yes 40mg Take 40 mg U nivers ORAL 6-19 by mouth. ity of 15:31: [address] ACETAMINOPH Yes Take by Uni vers EN EXTRA 6-19 mouth. ity of STRENGTH 15:31: [address] OMEPRAZOLE Yes 40mg Take 40 mg U nivers ORAL 6-19 by mouth. ity of 15:31: [address] ACETAMINOPH Yes Take by Uni vers EN EXTRA 6-19 mouth. ity of STRENGTH 15:31: [address] OMEPRAZOLE 2018- Yes 40mg Take 40 mg U nivers ORAL 6-19 by mouth. ity of 15:31: [address] ACETAMINOPH 0 Yes Take by Uni vers EN EXTRA 6-19 mouth. ity of STRENGTH 15:31: [address] Branch OMEPRAZOLE 2018-0 Yes 40mg Take 40 mg U nivers ORAL 6-19 by mouth. ity of 15:31: [address] ACETAMINOPH 0 Yes Take by Uni vers EN EXTRA 6-19 mouth. ity of STRENGTH 15:31: [address] Branch OMEPRAZOLE 2018-0 Yes 40mg Take 40 mg U nivers ORAL 6-19 by mouth. ity of 15:31: [address] ACETAMINOPH Yes Take by Uni vers EN EXTRA 6-19 mouth. ity of STRENGTH 15:31: [address] Branch OMEPRAZOLE 0 Yes 40mg Take 40 mg U nivers ORAL 6-19 by mouth. ity of 15:31: [address] ACETAMINOPH Yes Take by Uni vers EN EXTRA 6-19 mouth. ity of STRENGTH 15:31: [address] OMEPRAZOLE Yes 40mg Take 40 mg U nivers ORAL 6-19 by mouth. ity of 15:31: [address] ACETAMINOPH Yes Take by Uni vers EN EXTRA 6-19 mouth. ity of STRENGTH 15:31: [address] OMEPRAZOLE 0 Yes 40mg Take 40 mg U nivers ORAL 6-19 by mouth. ity of 15:31: [address] OMEPRAZOLE Yes 40mg Take 40 mg U nivers ORAL 6-19 by mouth. ity of 15:31: [address] OMEPRAZOLE 0 Yes 40mg Take 40 mg U nivers ORAL 6-19 by mouth. ity of 15:31: [address] OMEPRAZOLE 0 Yes 40mg Take 40 mg U nivers ORAL 6-19 by mouth. ity of 15:31: [address] OMEPRAZOLE 2018-0 Yes 40mg Take 40 mg U nivers ORAL 6-19 by mouth. ity of 15:31: [address] OMEPRAZOLE 0 Yes 40mg Take 40 mg U nivers ORAL 6-19 by mouth. ity of 15:31: [address] OMEPRAZOLE 2018-0 Yes 40mg Take 40 mg U nivers ORAL 6-19 by mouth. ity of 15:31: [address] OMEPRAZOLE Yes 40mg Take 40 mg U nivers ORAL 6-19 by mouth. ity of 15:31: [address] OMEPRAZOLE Yes 40mg Take 40 mg U nivers ORAL 6-19 by mouth. ity of 15:31: [address] OMEPRAZOLE Yes 40mg Take 40 mg U nivers ORAL 6-19 by mouth. ity of 15:31: [address] OMEPRAZOLE Yes 40mg Take 40 mg U nivers ORAL 6-19 by mouth. ity of 15:31: [address] OMEPRAZOLE Yes 40mg Take 40 mg U nivers ORAL 6-19 by mouth. ity of 15:31: [address] ACETAMINOPH Yes Take by Uni vers EN EXTRA 6-19 mouth. ity of STRENGTH 15:31: [address] OMEPRAZOLE Yes 40mg Take 40 mg U nivers ORAL 6-19 by mouth. ity of 15:31: [address] ACETAMINOPH Yes Take by Uni vers EN EXTRA 6-19 mouth. ity of STRENGTH 15:31: [address] OMEPRAZOLE Yes 40mg Take 40 mg U nivers ORAL 6-19 by mouth. ity of 15:31: [address] ACETAMINOPH Yes Take by Uni vers EN EXTRA 6-19 mouth. ity of STRENGTH 15:31: [address] OMEPRAZOLE Yes 40mg Take 40 mg U nivers ORAL 6-19 by mouth. ity of 15:31: [address] ACETAMINOPH Yes Take by Uni vers EN EXTRA 6-19 mouth. ity of STRENGTH 15:31: [address] OMEPRAZOLE Yes 40mg Take 40 mg U nivers ORAL 6-19 by mouth. ity of 15:31: [address] ACETAMINOPH Yes Take by Uni vers EN EXTRA 6-19 mouth. ity of STRENGTH 15:31: [address] Mesalamine Mesalamine No 2{table QD Mesalamine 1.2 [...] 1.2 GM ts_with 1.2 GM _a_meal } No known [facility] D[facility] Yes Severino 1 tablet C ommon Smart as needed [facility] (ok to - [facility] fill on or St after [facility] 07/23/20[facility] Linzescaleb Pathakzess Yes Severino 1 capsule Co mmon Smart [facility] Omeprazole Omeprazole Yes Severino 1 tablet Common Smart [facility] Amitriptyli Amitriptyli Yes Severino 1 tablet Common ne HCl ne HCl Smart at bedtime Spir it [facility] Trazodone Trazodone Yes Severino Take 1/2 Common HCl HCl Smart tab QHS [facility] Imitrex Imitrex Yes Severino 1 tablet Com mon Smart at least 2 Spirit hours - [facility] between [facility] doses as [facility] Omeprazole Omeprazole No 1{table QD [...] t} le Sodium MG MG 40 MG Immunizations Ordered Immunization Filled Immunization Date Status Commen ts Source Name Name Britany Garg 2019-09-24 [facility]pleted [facility] ([facility] (Triamcinolone) 08:52:00 - [facility] Britany Garg 2019-09-24 Completed [facility] (Triam[facility] (Triamcinolone) 08:52:00 - [facility] Britany Garg 2019-09-24 Completed [facility] (Triamcinolone) (Triamcinolone) 08:52:00 - [facility] 2019-09-24 Completed [facility] (Triamcinolone) (Triamcinolone) 08:52:00 - [facility] 2019-08-13 Completed [facility] (Triamcinolone) (Triamcinolone) 09:33:00 - [facility] 2019-08-13 Completed [facility] (Triamcinolone) (Triamcinolone) 09:33:00 - [facility] 2019-08-13 Completed [facility] (Triamcinolone) (Triamcinolone) 09:33:00 - [facility] 2019-08-13 Completed [facility] (Triamcinolone) (Triamcinolone) 09:33:00 [facility] Vital Signs Vital Name Observation Time Observation Value Comments Source height 2022-10-12 16:00:00 63 [in_i] Common [facility] weight 2022-10-12 16:00:00 155 [lb_av] Common [facility] temperature 2022-10-12 16:00:00 98 [degF] [facility] bmi 2022-10-12 16:00:00 27.45 kg/m2 [facility] blood pressure 2022-10-12 16:00:00 132 mm[Hg] [facility] - systolic [facility] blood pressure 2022-10-12 16:00:00 76 mm[Hg] [facility] - diastolic [facility] height 2022-08-24 10:50:00 63 [in_i] Common [facility] weight 2022-08-24 10:50:00 160.4 [lb_av] [facility] temperature 2022-08-24 10:50:00 97.4 [degF] Common [facility] bmi 2022-08-24 10:50:00 28.41 kg/m2 Common S pirit - [facility] oximetry 2022-08-24 10:50:00 98 % Common S pirit - [facility] respiratory rate 2022-08-24 10:50:00 18 /min Comm on [facility] blood pressure 2022-08-24 10:50:00 134 mm[Hg] Common [facility] - systolic [facility] blood pressure 2022-08-24 10:50:00 67 mm[Hg] Common [facility] - diastolic [facility] height 2022-08-16 16:10:00 63 [in_i] Common S pirit [facility] weight 2022-08-16 16:10:00 161.7 [lb_av] Common [facility] temperature 2022-08-16 16:10:00 98.0 [degF] [facility] bmi 2022-08-16 16:10:00 28.64 kg/m2 [facility] oximetry 2022-08-16 16:10:00 100 % Common S pirit [facility] respiratory rate 2022-08-16 16:10:00 18 /min Comm on [facility] blood pressure 2022-08-16 16:10:00 137 mm[Hg] Common [facility] - systolic [facility] blood pressure 2022-08-16 16:10:00 85 mm[Hg] Common [facility] - diastolic [facility] height 2022-07-26 14:00:00 63 [in_i] Common S pirit - [facility] weight 2022-07-26 14:00:00 159 [lb_av] [facility] temperature 2022-07-26 14:00:00 97.4 [degF] Common S pirit [facility] bmi 2022-07-26 14:00:00 28.16 kg/m2 Common S pirit [facility] oximetry 2022-07-26 14:00:00 99 % Common S pirit [facility] respiratory rate 2022-07-26 14:00:00 18 /min Comm on [facility] blood pressure 2022-07-26 14:00:00 132 mm[Hg] [facility] - systolic [facility] blood pressure 2022-07-26 14:00:00 76 mm[Hg] [facility] - diastolic [facility] height 2022-07-08 14:00:00 63 [in_i] Common S [facility] weight 2022-07-08 14:00:00 161.1 [lb_av] Common [facility] - [facility] temperature 2022-07-08 14:00:00 98.2 [degF] Common [facility] bmi 2022-07-08 14:00:00 28.53 kg/m2 [facility] oximetry 2022-07-08 14:00:00 96 % [facility] respiratory rate 2022-07-08 14:00:00 18 /min Comm on [facility] blood pressure 2022-07-08 14:00:00 131 mm[Hg] [facility] blood pressure 2022-07-08 14:00:00 61 mm[Hg] Common [facility] - diastolic [facility] height 2022-05-20 08:00:00 63 [in_i] Common S [facility] weight 2022-05-20 08:00:00 160 [lb_av] Common S pirit [facility] temperature 2022-05-20 08:00:00 98 [degF] Common S pirit [facility] bmi 2022-05-20 08:00:00 28.34 kg/m2 Common S pirit [facility] blood pressure 2022-05-20 08:00:00 120 mm[Hg] [facility] - systolic [facility] blood pressure 2022-05-20 08:00:00 72 mm[Hg] [facility] - diastolic [facility] height 2022-04-28 14:30:00 63 [in_i] Common S pirit [facility] weight 2022-04-28 14:30:00 157.8 [lb_av] Common [facility] temperature 2022-04-28 14:30:00 98.0 [degF] Common S pirit [facility] bmi 2022-04-28 14:30:00 27.95 kg/m2 Common S [facility] oximetry 2022-04-28 14:30:00 98 % [facility] 2022-04-28 14:30:00 18 /min Comm on [facility] blood pressure 2022-04-28 14:30:00 126 mm[Hg] Common [facility] - systolic [facility] blood pressure 2022-04-28 14:30:00 79 mm[Hg] Common [facility] - diastolic [facility] height 2022-03-30 14:00:00 63 [in_i] Common [facility] weight 2022-03-30 14:00:00 156.4 [lb_av] [facility] temperature 2022-03-30 14:00:00 98.6 [degF] Common [facility] bmi 2022-03-30 14:00:00 27.7 kg/m2 [facility] oximetry 2022-03-30 14:00:00 98 % [facility] respiratory rate 2022-03-30 14:00:00 16 /min Comm on [facility] blood pressure 2022-03-30 14:00:00 120 mm[Hg] [facility] - systolic [facility] blood pressure 2022-03-30 14:00:00 84 mm[Hg] [facility] - diastolic [facility] height 2022-02-24 07:50:00 63 [in_i] Common [facility] weight 2022-02-24 07:50:00 164 [lb_av] Common [facility] temperature 2022-02-24 07:50:00 98 [degF] Common S pirit [facility] bmi 2022-02-24 07:50:00 29.05 kg/m2 Common S pirit - [facility] blood pressure 2022-02-24 07:50:00 121 mm[Hg] [facility] - systolic [facility] blood pressure 2022-02-24 07:50:00 75 mm[Hg] [facility] - diastolic [facility] height 2022-01-19 11:00:00 63 [in_i] Common S pirit - [facility] weight 2022-01-19 11:00:00 165.8 [lb_av] [facility] temperature 2022-01-19 11:00:00 97.5 [degF] [facility] bmi 2022-01-19 11:00:00 29.37 kg/m2 [facility] oximetry 2022-01-19 11:00:00 100 % [facility] respiratory rate 2022-01-19 11:00:00 17 /min Comm on Spirit - [facility] blood pressure 2022-01-19 11:00:00 111 mm[Hg] [facility] - systolic [facility] blood pressure 2022-01-19 11:00:00 74 mm[Hg] [facility] - diastolic [facility] height 2021-12-22 15:50:00 63 [in_i] Common S pirit [facility] weight 2021-12-22 15:50:00 160 [lb_av] Common S pirit [facility] temperature 2021-12-22 15:50:00 98 [degF] Common S pirit [facility] bmi 2021-12-22 15:50:00 28.34 kg/m2 Common S pirit [facility] height 2021-09-22 15:40:00 63 [in_i] Common S pirit [facility] weight 2021-09-22 15:40:00 160 [lb_av] Common S pirit [facility] temperature 2021-09-22 15:40:00 97.4 [degF] Common S pirit - [facility] bmi 2021-09-22 15:40:00 28.34 kg/m2 Common S pirit - [facility] blood pressure 2021-09-22 15:40:00 125 mm[Hg] [facility] - systolic [facility] blood pressure 2021-09-22 15:40:00 75 mm[Hg] [facility] - diastolic [facility] height 2021-08-05 08:20:00 63 [in_i] [facility] S [facility] weight 2021-08-05 08:20:00 174 [lb_av] [facility] S [facility] bmi 2021-08-05 08:20:00 30.82 kg/m2 [facility] S [facility] Systolic blood 2021-08-04 19:00:00 125 mm[Hg] [facility] Diastolic blood 2021-08-04 19:00:00 85 mm[Hg] [facility]ive [facility] Heart rate 2021-08-04 19:00:00 69 /min [facility] Respiratory rate 2021-08-04 19:00:00 16 /min [facility] 2021-08-04 19:00:00 97 /min [facility] Arterial blood by [facility] Pulse oximetry Branch Body temperature 2021-08-04 17:00:00 36.72 Liya [facility] ersity [facility] Body height 2021-08-04 16:09:00 160 cm [facility] Body weight 2021-08-04 16:09:00 72.576 kg [facility] BMI 2021-08-04 16:09:00 28.34 kg/m2 [facility] Systolic blood 2021-05-20 17:04:00 134 mm[Hg] [facility]iver [facility] Diastolic blood 2021-05-20 17:04:00 87 mm[Hg] Unive rsity of pressure [facility] Heart rate 2021-05-20 17:04:00 101 /min [facility] Body temperature 2021-05-20 17:04:00 37.11 Liya [facility] Respiratory rate 2021-05-20 17:04:00 18 /min [facility] Body weight 2021-05-20 17:04:00 81.647 kg [facility] [place] [facility] BMI 2021-05-20 17:04:00 31.89 kg/m2 [facility] Oxygen saturation in 2021-05-20 17:04:00 98 /min University of Arterial blood by [facility]riel Pulse oximetry Branch Systolic blood 2021-01-21 21:10:00 124 mm[Hg] Univer [facility]ity [facility] Diastolic blood 2021-01-21 21:10:00 63 mm[Hg] Unive [facility]ity [facility] Heart rate 2021-01-21 21:10:00 98 /min [facility] Body temperature 2021-01-21 21:10:00 37.78 Liya [facility] Respiratory rate 2021-01-21 21:10:00 20 /min [facility] Oxygen saturation in 2021-01-21 21:10:00 100 /min University of Arterial blood by [facility] Pulse oximetry Branch Body weight 2021-01-21 18:05:00 81.647 kg [facility] [place] [facility] BMI 2021-01-21 18:05:00 31.89 kg/m2 [facility] Systolic blood 2020-10-20 15:50:00 123 mm[Hg] Univer [facility]ity [facility] Diastolic blood 2020-10-20 15:50:00 81 mm[Hg] [facility]ive [facility]ity [facility] Heart rate 2020-10-20 15:50:00 88 /min [facility] [place] [facility] Respiratory rate 2020-10-20 15:50:00 18 /min [facility] [place] [facility] Oxygen saturation in 2020-10-20 15:50:00 97 /min [facility] of Arterial blood by [facility] Pulse oximetry Branch Body temperature 2020-10-20 13:37:00 36.22 Liya [facility] [place] [facility] Body height 2020-10-20 13:37:00 160 cm [facility] Body weight 2020-10-20 13:37:00 86.183 kg [facility] [place] [facility] BMI 2020-10-20 13:37:00 33.66 kg/m2 [facility] [place] [facility] Systolic blood 2020-07-15 23:05:00 148 mm[Hg] [facility] [place] [facility] Diastolic blood 2020-07-15 23:05:00 100 mm[Hg] Unive [facility]ity [facility] Heart rate 2020-07-15 23:05:00 88 /min [facility] Body temperature 2020-07-15 23:05:00 37.17 Liya [facility] [place] [facility] Respiratory rate 2020-07-15 23:05:00 18 /min [facility] [place] [facility] Oxygen saturation in 2020-07-15 23:05:00 99 /min University of Arterial blood by [facility]riel Pulse oximetry Branch Body weight 2020-07-15 21:28:00 77.111 kg [facility] [place] [facility] BMI 2020-07-15 21:28:00 30.11 kg/m2 [facility] [place] [facility] Systolic blood 2020-01-03 19:26:00 121 mm[Hg] [facility] [place] [facility] Diastolic blood 2020-01-03 19:26:00 74 mm[Hg] [facility]ive [facility]ity [facility] [place] [facility] Heart rate 2020-01-03 19:26:00 85 /min [facility] Respiratory rate 2020-01-03 19:26:00 16 /min [facility] Oxygen saturation in 2020-01-03 19:26:00 98 /min [facility] of Arterial blood by [facility] Pulse oximetry Branch Body temperature 2020-01-03 14:01:00 37.22 Liya [facility] [place] [facility] Body height 2020-01-03 14:01:00 160 cm [facility] Body weight 2020-01-03 14:01:00 77.111 kg [facility] [place] [facility] BMI 2020-01-03 14:01:00 30.11 kg/m2 [facility] Systolic blood 2019-11-29 23:03:00 127 mm[Hg] [facility] [place] [facility] Diastolic blood 2019-11-29 23:03:00 96 mm[Hg] Unive [facility]ity [facility] [place] [facility] Heart rate 2019-11-29 23:03:00 86 /min [facility] [place] [facility] Body temperature 2019-11-29 23:03:00 36.83 Liya [facility] [place] [facility] Respiratory rate 2019-11-29 23:03:00 18 /min [facility] [place] [facility] Body height 2019-11-29 23:03:00 160 cm [facility] Body weight 2019-11-29 23:03:00 76.658 kg [facility] [place] [facility] BMI 2019-11-29 23:03:00 29.94 kg/m2 [facility] [place] [facility] Systolic blood 2019-11-15 22:16:00 129 mm[Hg] [facility] [place] [facility] Diastolic blood 2019-11-15 22:16:00 86 mm[Hg] [facility]ive [facility] [place] [facility] Heart rate 2019-11-15 22:16:00 82 /min [facility] [place] [facility] Body temperature 2019-11-15 22:16:00 36.78 Liya [facility] [place] [facility] Respiratory rate 2019-11-15 22:16:00 18 /min [facility] [place] [facility] Body height 2019-11-15 22:16:00 160.7 cm [facility] [place] [facility] Body weight 2019-11-15 22:16:00 77.111 kg [facility] [place] [facility] BMI 2019-11-15 22:16:00 29.88 kg/m2 [facility] [place] [facility] Systolic blood 2019-06-07 15:13:00 110 mm[Hg] [facility] [place] [facility] Diastolic blood 2019-06-07 15:13:00 72 mm[Hg] Unive [facility]ity [facility] [place] [facility] Heart rate 2019-06-07 15:13:00 77 /min [facility] [place] [facility] Body temperature 2019-06-07 15:13:00 36.83 Liya [facility] [place] [facility] Respiratory rate 2019-06-07 15:13:00 20 /min [facility] [place] [facility] Body height 2019-06-07 15:13:00 160 cm [facility] [place] [facility] Body weight 2019-06-07 15:13:00 67.495 kg [facility] [place] [facility] BMI 2019-06-07 15:13:00 26.36 kg/m2 [facility] Procedures Procedure Date / Time Performing Clinician Source Performed CT ABDOMEN PELVIS W 2021-08-04 16:53:22 Armond Moore [facility] CONTRAST Medical Branch LIPASE 2021-08-04 16:37:00 Singer [facility] COMP. METABOLIC PANEL 2021-08-04 16:37:00 Armond Moore [facility] ([id number]) Medical Branch CBC WITH DIFF 2021-08-04 16:37:00 Singer [facility] URINALYSIS 2021-08-04 16:37:00 [place] [facility] CONSENT/REFUSAL FOR 2021-08-04 15:58:11 Doctor Unassigned, No [facility] [place] [facility] TREATMENT Name [facility] CT KNEE RIGHT WO 2021-05-20 19:15:50 Blaine Perez [facility] XR KNEE 3 VW RIGHT 2021-05-20 17:34:16 Sandee Guillen [facility] NOTICE OF PRIVACY 2021-05-20 17:00:21 Doctor Unassigned, No Univ ersity [facility] PRACTICES Name Medical Branch CONSENT/REFUSAL FOR 2021-05-20 17:00:06 Doctor Unassigned, No [facility] [place] DI[facility] TREATMENT Name [facility] URINALYSIS 2021-01-21 20:55:00 Sandee Guillen [facility] BASIC METABOLIC PANEL 2021-01-21 19:37:00 Sandee Guillen [facility] [place] (NA, K, CL, CO2, Medical Branch GLUCOSE, BUN, CREATININE, CA) CBC WITH DIFF 2021-01-21 19:37:00 Sandee Guillen [facility] XR CHEST 1 VW 2021-01-21 18:33:12 Sandee Guillen [facility] COVID-19 (ID NOW RAPID 2021-01-21 18:09:00 Sandee [facility]illen [facility] [place] TESTING) Medical Branch CONSENT/REFUSAL FOR 2021-01-21 17:52:09 Doctor Unassigned, No [facility] [place] [facility]REATMENT Name Medical [facility] CT ANGIOGRAM NECK 2020-10-20 14:59:45 Aris Hill [facility] POCT TEST 2020-10-20 14:00:00 Arsi Hill [facility] HEPATIC FUNCTION PANEL 2020-10-20 13:57:00 Aris Hill [facility] ([id number]) (ALB,T.PRO,BILI Medical Branch T,BU/BC,ALT,AST,ALK PHOS) BASIC METABOLIC PANEL 2020-10-20 13:57:00 Aris Hill [facility] (NA, K, CL, CO2, Medical Branch GLUCOSE, BUN, CREATININE, CA) CBC WITH DIFF 2020-10-20 13:57:00 Aris Hill [place] [facility] PROTHROMBIN TIME / INR 2020-10-20 13:57:00 Aris Hill [facility] ACTIVATED PARTIAL 2020-10-20 13:57:00 Aris Hill [facility] THRMPLAS [facility] NOTICE OF PRIVACY 2020-10-20 13:42:58 Doctor Unassigned, No [facility] [place] CONSENT/REFUSAL FOR 2020-10-20 13:34:05 [facility] RAPID STREP SCREEN FOR 2020-07-15 21:57:00 Clarence Weiss [facility] GROUP A [facility] NOTICE OF PRIVACY 2020-07-15 21:13:13 Doctor Unassigned, No [facility] CONSENT/REFUSAL FOR 2020-07-15 21:12:59 [facility]igned, [facility] LAPAROSCOPIC TOTAL 2020-01-03 14:57:00 Sondra Chavira [facility] ABDOMINAL HYSTERECTOMY Medical [facility] CYSTOSCOPY 2020-01-03 14:57:00 Sondra Chavira [facility] SALPINGECTOMY 2020-01-03 14:57:00 Sondra Chavira [facility] BASIC METABOLIC PANEL 2020-01-03 14:28:00 Carmen Kennedy [facility] (NA, K, CL, CO2, Medical Branch GLUCOSE, BUN, CREATININE, CA) CBC WITH DIFFERENTIAL 2020-01-03 14:28:00 Brent [facility] HB ABO GROUPING 2020-01-03 14:24:00 Brent [facility] POCT TEST 2020-01-03 14:00:00 Keith Oliva [facility] DAY SURGERY - ADC 2020-01-03 05:01:00 Doctor Unassigned, Vicky [facility] ASSIGNMENT OF BENEFITS 2019-11-15 23:27:34 Doctor Unassigned, No [facility] POCT TEST 2019-11-15 00:00:00 Sondra Chavira [facility] Encounters Start End Encounter Admission Attending Care Care Encounter Source Date/Time Date/Time Type Type Clinicians Facility Department ID 2023-04-05 Outpatient Smart, STLMLC STLC [id number] Common 10:16:00 Severino [id number] [facility] 2022-12-15 Outpatient Smart, STLMLC STLC [id number] Common 08:16:00 Severino 86552 [facility] 2022-10-11 Outpatient Smart, STLMLC STLC [id number] Common 10:39:01 Severino 41455 [facility] 2022-08-22 Outpatient Smart, STLMLC STLMLC [id number] Common 13:19:00 Severino 88814 [facility] 2022-05-18 Outpatient Smart, STLMLC STLMLC [id number] Common 11:08:00 Severino 01456 [facility] 2022-05-06 Outpatient Smart, STLMLC STLMLC [id number] Common 09:31:00 Severino 85191 [facility] 2022-01-20 Outpatient Smart, STLMLC STLMLC [id number] Common 08:29:00 Severino 82251 [facility] 2021-11-17 Outpatient Smart, STLMLC STLC [id number] Common 14:19:29 Severino 35097 [facility] 2021-11-17 Outpatient Smart, STLMLC STLC [id number] Common 13:45:03 Severino 02598 [facility] 2021-11-17 Outpatient Smart, STLMLC STLMLC [id number] Common 12:23:40 Severino 89456 [facility] 2021-11-17 Outpatient Smart, STLMLC STLMLC [id number] Common 12:08:39 Severino 73153 [facility] 2021-11-17 Outpatient Smart, STLMLC STLMLC [id number] Common 11:29:40 Severino 33905 [facility] 2021-11-17 Outpatient Smart, STLMLC STLMLC [id number] Common 11:24:43 Severino 69775 [facility] 2021-11-17 Outpatient Smart, STLMLC STLC [id number] Common 11:24:07 Severino 19434 [facility] 2021-08-24 Emergency [facility] [id number] Univers [facility] [id number] Univers [facility]21 Emergency [facility] [id number] Univers 13:31:42 [facility] 2021-08-20 Emergency [facility] [id number] Univers 19:06:29 [facility] 2021-08-19 Inpatient R SONDRA CHAVIRA [facility] FABRIZIO [id number] Univers 12:19:52 SONDRA CHAVIRA [facility] 2022-10-12 2022-10-12 OFFICE STLC STLC [id number] Co mmon 00:00:00 00:00:[address] [facility] ESTAB PT - CHI LEVEL 4 [facility] 2022-08-30 2022-08-30 (TEL) STLMLC STLMLC [id number] Co mmon 00:00:00 00:00:00 [facility] 2022-08-24 2022-08-24 OFFICE STLMLC STLMLC [id number] Co mmon 00:00:00 00:00:00 VISIT [facility] PT - CHI LEVEL 4 [facility] 2022-08-16 2022-08-16 (TEL) STLMLC STLMLC [id number] Co mmon 00:00:00 00:00:00 [facility] 2022-08-16 2022-08-16 OFFICE STLMLC STLMLC [id number] Co mmon 00:00:00 00:00:00 VISIT EST Spir it PT LEVEL 3 - CHI [facility] 2022-07-26 2022-07-26 OFFICE STLMLC STLMLC [id number] Co mmon 00:00:00 00:00:00 VISIT EST Spir it PT LEVEL 3 - [facility] 2022-07-25 2022-07-25 (TEL) STLMLC STLMLC [id number] Co mmon 00:00:00 00:00:00 [facility] 2022-07-08 2022-07-08 (TEL) STLMLC STLMLC [id number] Co mmon 00:00:00 00:00:00 [facility] 2022-07-08 2022-07-08 OFFICE STLMLC STLMLC [id number] Co mmon 00:00:00 00:00:00 VISIT Spirit ESTAB PT - CHI LEVEL 2 [facility] 2022-06-22 2022-06-22 (TEL) STLMLC STLMLC [id number] Co mmon 00:00:00 00:00:00 [facility] 2022-05-30 2022-05-30 (TEL) STLMLC STLMLC [id number] Co mmon 00:00:00 00:00:00 [facility] 2022-05-20 2022-05-20 OFFICE STLMLC STLMLC [id number] Co mmon 00:00:00 00:00:00 VISIT Spirit ESTAB PT - CHI LEVEL 4 [facility] 2022-04-28 2022-04-28 PREV VISIT STLMLC STLMLC [id number] Common 00:00:00 00:00:00 EST AGE Spirit 18-39 - CHI [facility] 2022-04-28 2022-04-28 (TEL) STLMLC STLMLC [id number] Co mmon 00:00:00 00:00:00 [facility] 2022-03-30 2022-03-30 (TEL) STLMLC STLMLC [id number] Co mmon 00:00:00 00:00:00 [facility] 2022-03-30 2022-03-30 OFFICE STLMLC STLMLC [id number] Co mmon 00:00:00 00:00:00 VISIT [facility] PT - CHI LEVEL 4 [facility] 2022-03-29 2022-03-29 (TEL) STLMLC STLMLC [id number] Co mmon 00:00:00 00:00:00 [facility] 2022-02-24 2022-02-24 OFFICE STLMLC STLMLC [id number] Co mmon 00:00:00 00:00:00 VISIT [facility] PT - CHI LEVEL 4 [facility] 2022-01-26 2022-01-26 (TEL) STLMLC STLMLC [id number] Co mmon 00:00:00 00:00:00 [facility] 2022-01-20 2022-01-20 (TEL) STLMLC STLMLC [id number] Co mmon 00:00:00 00:00:00 [facility] 2022-01-20 2022-01-20 (TEL) STLMLC STLMLC [id number] Co mmon 00:00:00 00:00:00 [facility] 2022-01-19 2022-01-19 (TEL) STLMLC STLMLC [id number] Co mmon 00:00:00 00:00:00 [facility] 2022-01-19 2022-01-19 OFFICE STLMLC STLMLC [id number] Co mmon 00:00:00 00:00:00 VISIT EST Spir it PT LEVEL 3 [facility] 2021-12-23 2021-12-23 (TEL) STLMLC STLMLC [id number] Co mmon 00:00:00 00:00:00 [facility] 2021-12-23 2021-12-23 (TEL) STLMLC STLMLC [id number] Co mmon 00:00:00 00:00:00 Spirit - CHI [facility] 2021-12-22 2021-12-22 OFFICE STLMLC STLMLC [id number] Co mmon 00:00:00 00:00:00 VISIT Spirit ESTAB PT - CHI LEVEL 4 [facility] 2021-12-22 2021-12-22 (TEL) STLMLC STLMLC [id number] Co mmon 00:00:00 00:00:00 [facility] 2021-11-03 2021-11-03 (TEL) STLMLC STLMLC [id number] Co mmon 00:00:00 00:00:00 [facility] 2021-11-02 2021-11-02 (TEL) STLMLC STLMLC [id number] Co mmon 00:00:00 00:00:00 [facility] 2021-09-22 2021-09-22 OFFICE STLMLC STLMLC [id number] Co mmon 00:00:00 00:00:00 VISIT Spirit ESTAB PT - CHI LEVEL 4 [facility] 2021-08-05 2021-08-05 OFFICE STLMLC STLMLC [id number] Co mmon 00:00:00 00:00:00 VISIT EST Spir it PT LEVEL 3 [facility] 2021-08-05 2021-08-05 (TEL) STLMLC STLMLC [id number] Co mmon 00:00:00 00:00:00 [facility] 2021-08-04 2021-08-04 Emergency Moore, [facility] [id number] Univers 11:11:00 14:06:00 Armond Collazo 350.1.13.10 i ty of [place] 4.2.7.2.686 [facility] [id number] [facility] [address] 2021-08-04 2021-08-04 (TEL) STLMLC STLMLC [id number] Co mmon 00:00:00 00:00:00 [facility] 2021-08-03 2021-08-03 (TEL) STLMLC STLMLC [id number] Co mmon 00:00:00 00:00:00 [facility] 2021-06-23 2021-06-23 Outpatient STLMLC STLMLC [id number] Common 00:00:00 00:00:00 [facility] 2021-06-08 2021-06-08 Outpatient STLMLC STLMLC [id number] Common 00:00:00 00:00:00 [facility] 2021-06-07 2021-06-07 Outpatient STLMLC STLMLC [id number] Common 00:00:00 00:00:00 [facility] 2021-06-03 2021-06-03 Outpatient STLMLC STLMLC [id number] Common 00:00:00 00:00:00 [facility] 2021-05-31 2021-05-31 Outpatient STLMLC STLMLC [id number] Common 00:00:00 00:00:00 [facility] 2021-05-31 2021-05-31 Outpatient STLMLC STLMLC [id number] Common 00:00:00 00:00:00 [facility] 2021-05-20 2021-05-20 Emergency Trev, K [facility] 1.2.840.114 [id number] Univers 12:07:00 16:13:00 Sydni Collazo 350.1.13.10 i ty [facility] 4.2.7.2.686 [facility] [phone] [facility] [address] 2021-05-20 2021-05-20 Outpatient STLMLC STLMLC [id number] Common 00:00:00 00:00:00 [facility] 2021-05-20 2021-05-20 Orders Doctor PATRICIA 1.2.840.114 [id number] Univers 00:00:00 00:00:00 Only Unassigned, JAZMINE 350.1.13.10 ity of [facility] 4.2.7.2.686 [facility] [phone] [facility] [address] 2021-03-23 2021-03-23 Outpatient STLMLC STLMLC [id number] Common 00:00:00 00:00:00 [facility] 2021-02-252021-02-25 Outpatient STLMLC STLMLC [id number] Common 00:00:00 00:00:00 [facility] 2021-02-22 2021-02-22 Outpatient STLMLC STLMLC [id number] Common 00:00:00 00:00:00 [facility] 2021-02-18 2021-02-18 Outpatient STLMLC STLMLC [id number] Common 00:00:00 00:00:00 [facility] 2021-01-27 2021-01-27 Outpatient STLMLC STLMLC [id number] Common 00:00:00 00:00:00 [facility] 2021-01-27 2021-01-27 Outpatient STLMLC STLMLC [id number] Common 00:00:00 00:00:00 [facility] 2021-01-21 2021-01-21 Emergency Wilmer [facility] 1.2.840.114 [id number] Univers 13:11:00 16:40:00 Sandee Collazo 350.1.13.10 itchad [facility] 4.2.7.2.686 [facility] [phone] [facility] [address] 2021-01-21 2021-01-21 Emergency X WILMER [facility] ERT [id number] Univers 13:11:00 16:40:00 SANDEE serrato [facility] 2021-01-20 2021-01-20 Outpatient STLMLC STLMLC [id number] Common 00:00:00 00:00:00 [facility] 2021-01-20 2021-01-20 Outpatient STLMLC STLMLC [id number] Common 00:00:00 00:00:00 [facility] 2021-01-11 2021-01-11 Patient Dov RIJOHN 1.2.840.114 [id number] Univers 00:00:00 00:00:00 Outreach Tim GILLETTE 350.1.13.10 i claudio [facility] 4.2.7.2.686 [facility] [phone] Or dicsc [address] 2020-12-21 2020-12-21 Outpatient STLMLC STLMLC [id number] Common 00:00:00 00:00:00 [facility] 2020-11-12 2020-11-12 Outpatient STLMLC STLMLC [id number] Common 00:00:00 00:00:00 [facility] 2020-11-12 2020-11-12 Outpatient STLMLC STLMLC [id number] Common 00:00:00 00:00:00 [facility] 2020-10-26 2020-10-26 Outpatient STLMLC STLMLC [id number] Common 00:00:00 00:00:00 [facility] 2020-10-20 2020-10-20 Emergency Sergio [facility] [id number] Univers 07:39:00 09:57:00 Aris Molt 350.1.13.10 i ty [facility] 4.2.7.2.686 [facility] [phone] [place] 172734 Branch 2020-10-14 2020-10-14 Outpatient STLMLC STLMLC [id number] Common 00:00:00 00:00:00 [facility] 2020-10-06 2020-10-06 Outpatient STLMLC STLMLC [id number] Common 00:00:00 00:00:00 [facility] 2020-10-01 2020-10-01 Outpatient STLMLC STLMLC [id number] Common 00:00:00 00:00:00 [facility] 2020-09-21 2020-09-21 Outpatient STLMLC STLMLC [id number] Common 00:00:00 00:00:00 [facility] 2020-08-05 2020-08-05 Outpatient STLMLC STLMLC [id number] Common 00:00:00 00:00:00 [facility] 2020-08-04 2020-08-04 Outpatient STLMLC STLMLC [id number] Common 00:00:00 00:00:00 [facility] 2020-07-16 2020-07-16 Letter Li Hernandez 1.2.840.114 [id number] Univers 00:00:00 00:00:00 (Out) JAZMINE 350.1.13.10 it y of [facility] 4.2.7.2.686 Jose [phone] [facility] [address] 2020-07-15 2020-07-15 Emergency Isela [facility] 1.2.840.114 [id number] [facility] 16:40:00 18:23:00 Clarence Collazo 350.1.13.10 i ty [place] 4.2.7.2.686 [facility] [id number] [facility] [address] 2020-07-15 2020-07-15 Outpatient STLMLC STLMLC [id number] Common 00:00:00 00:00:00 [facility] 2020-07-15 2020-07-15 Outpatient STLMLC STLC [id number] Common 00:00:00 00:00:00 [facility] 2020-07-09 2020-07-09 Out[facility] [id number] Common 08:20:00 08:20:[address] [facility] 2020-06-23 2020-06-23 Outpatient [facility] [id number] Common 13:38:00 13:38:[address] [facility] 2020-06-08 2020-06-08 Outpatient [facility] [id number] Common 16:00:00 16:00:[address] [facility] 2020-06-02 2020-06-02 Outpatient [facility] [id number] Common 16:31:00 16:31:[address] Family [facility] 2020-06-02 2020-06-02 Out[facility] [id number] Common 08:30:00 08:30:[address] [facility] 2020-06-01 2020-06-01 Outpatient [facility] [id number] Common 10:46:00 10:46:00 [facility] 2020-04-27 2020-04-27 [facility] [id number] Common 13:00:00 13:00:[address] [facility] 2020-03-25 2020-03-25 Outpatient [facility] [id number] Common 16:45:00 16:45:[address] [facility] 2020-02-26 2020-02-26 Outpatient [facility] [id number] Common 14:15:00 14:15:[address] [facility] 2020-01-29 2020-01-29 Telephone Adum, [facility] [id number] [facility] 00:00:00 00:00:00 Alyssa Collazo 350.1.13.10 [place] [phone] Or dical [place]al [address] [place] [address] 2020-01-29 2020-01-29 Refill Doctor [facility] 1.2.840.114 [id number] Univers 00:00:00 00:00:00 Unassigned, Molt 350.1.13.10 [place] 4.2.7.2.686 [place] [phone] Or dical [place]al [address] [place] [address] 2020-01-29 2020-01-29 Patient Doctor [facility] 1.2.840.114 [id number] Univers 00:00:00 00:00:00 Secure Msg Unassigned, Molt 350.1.13.10 [place] 4.2.7.2.686 [place] [phone] Or dical [place]al [address] [place] [address] 2020-01-29 2020-01-29 Patient Doctor [facility] 1.2.840.114 [id number] Univers 00:00:00 00:00:00 Secure Msg Unassigned, Molt 350.1.13.10 [place] 4.2.7.2.686 [place] [phone] Or dicsc [place]al [address] [place] [address] 2020-01-29 2020-01-29 Patient Doctor [facility] 1.2.840.114 [id number] Univers 00:00:00 00:00:00 Secure Msg UnassignedZay 350.1.13.10 [place] 4.2.7.2.686 [place] [phone] Or dical [place]al [address] [place] [address] 2020-01-29 2020-01-29 Patient Doctor [place] 1.2.840.114 [id number] Univers 00:00:00 00:00:00 Secure Msg UnassignedZay 350.1.13.10 [place]2.[place] [phone] Or dic[address] 2020-01-17 2020-01-17 Telemedici Cait, [facility] 1.2.840.114 [id number] Univers 08:20:35 16:41:15 ne Visit Sondra Collazo 350.1.13.10 ity [place] [phone] [address] 2020-01-17 2020-01-17 Outpatient R SONDRA CHAVIRA [facility] [place] [facility] [id number] Univers 13:15:00 13:15:00 SONDRA CHAVIRA [facility] 2020-01-17 2020-01-17 Telephone Cait, [facility] 1.2.840.114 [id number] Univers 00:00:00 00:00:00 Sondra Collazo 350.1.13.10 [place]2.[place] [phone] Or dic[address] 2020-01-07 2020-01-07 Telephone Cait, [facility] 1.2.840.114 [id number] Univers 00:00:00 00:00:00 Sondra Collazo 350.1.13.10 [place]2.[place] [phone] Or dic[address] 2020-01-06 2020-01-06 Telephone Cait, [facility] 1.2.840.114 [id number] Univers 00:00:00 00:00:00 Sondra Collazo 350.1.13.10 [place] 4[place].2.[place] [phone] [address] 2020-01-03 2020-01-03 [facility] 1.2.840.114 [id number] Univers 08:46:00 15:02:00 Encounter Sondra Collazo 350.1.13.10 [place] 4[place].2.[place] [phone] [address] 2019-11-29 2020-01-03 Office [facility] 1.2.840.114 [id number] Univers 15:59:09 14:53:01 Visit Sondra Collazo 350.1.13.10 [place] 4[place]2.7.2.[place] [phone] [address] 2020-01-03 2020-01-03 Orders Doctor BELEM 1.2.840.114 [id number] Univers 00:00:00 00:00:00 Only Unassigned, JAZMINE 350.1.13.10 ity of [place] [facility] 4.2.7.2.686 Jose as [phone] [address] 2019-12-30 2019-12-30 Telephone [facility] 1.2.840.114 [id number] Univers 00:00:00 00:00:00 Sondra Collazo 350.1.13.10 [place] 4[place].2.[place] [phone] [address] 2019-12-27 2019-12-27 Outpatient R SONDRA CHAVIRA [facility] B [id number] Univers 16:00:00 16:00:00 SONDRA CHAVIRA itchad of [facility] 2019-12-10 2019-12-10 [facility] 1.2.840.114 [id number] Univers 00:00:00 00:00:00 Management Sondra Collazo 350.1.13.10 [place] 4[place].2.[place] [phone] Or dical [address] 2019-12-05 2019-12-05 Telephone Cait [facility] 1.2.840.114 [id number] Univers 00:00:00 00:00:00 Sondra Collazo 350.1.13.10 [place] 4[place]2.[place].2.[place] [phone] Or dic[address] 2019-12-02 2019-12-02 Prep For Brent, [facility] 1.2.840.114 [id number] Univers 00:00:00 00:00:00 Surgery Carmen Zay 350.1.13.10 [place] 4[place]2.7.2.[place] [phone] Or dic[address] 2019-12-02 2019-12-02 Telephone Cait [facility] 1.2.840.114 [id number] Univers 00:00:00 00:00:00 Sondra Collazo 350.1.13.10 [place].2.[place] [phone] Or dic[address] 2019-12-01 2019-12-01 Case Cait [facility] 1.2.840.114 [id number] Univers 00:00:00 00:00:00 Management Sondra Collazo 350.1.13.10 [place] 4[place].2.[place] [phone] Or dic[address] 2019-11-29 2019-11-29 Outpatient R SONDRA CHAVIRA [facility] [place] B [id number] Univers 16:00:00 17:56:19 SONDRA CHAVIRA of [facility] 2019-11-29 2019-11-29 Orders Doctor BELEM 1.2.840.114 [id number] Univers 00:00:00 00:00:00 Only Unassigned, JAZMINE 350.1.13.10 ity of [place] [facility] 4.2.7.2.686 Jose as [phone] [address] 2019-11-19 2019-11-19 Telephone Cait [facility] 1.2.840.114 [id number] Univers 00:00:00 00:00:00 Sondra Collazo 350.1.13.10 [place].2.[place] [phone] [facility] [address] [facility] 2019-11-18 2019-11-18 [facility] 1.2.840.114 [id number] Univers 00:00:00 00:00:00 Sondra Collazo 350.1.13.10 [place] 4[place]2.[place].2.[place] [phone] [address] 2019-11-15 2019-11-15 Private Wealth Advisor [facility] 1.2.8 40.114 [id number] Univers 17:30:16 17:45:16 Visit Sondra Chavira 350.1.13. 10 it[place] of [place] 4[place].2.[place] [phone] [facility] 353 [facility] 2019-11-15 2019-11-15 [facility] 1.2.840.114 [id number] Univers 16:00:41 17:19:59 Visit Sondra Collazo 350.1.13.10 i ty [place] 4[place]2.7.2.[place] [phone] [facility] 134 [facility] 2019-11-15 2019-11-15 Orders Doctor BELEM 1.2.840.114 [id number] Univers 00:00:00 00:00:00 Only Unassigned, JAZMINE 350.1.13.10 ity of [place] [facility] 4.2.7.2.686 Jose as [phone] [address] 2019-11-12 2019-11-12 [facility] 1.2.840.114 [id number] Univers 00:00:00 00:00:00 Sondra Collazo 350.1.13.10 [place] 4[place].2.[place] [phone] [facility] 134 [facility] 2019-09-24 2019-09-24 Outpatient [facility] [id number] Common 08:45:00 08:45:[address] [facility] 2019-08-13 2019-08-13 Outpatient [facility] [id number] Common 09:15:00 09:15:[address] [facility] 2019-07-24 2019-07-24 Outpatient [facility] [id number] Common 15:00:00 15:00:[address] [facility] 2019-07-08 2019-07-08 Outpatient [facility] [id number] Common 10:56:00 10:56:[address] [facility] 2019-06-11 2019-06-11 Outpatient [facility] [id number] Common 10:15:00 10:15:[address] [facility] 2019-06-07 2019-06-07 Nurse Nurse, [facility] 1.2.840.114 [id number] [facility] 09:59:31 10:24:10 Visit Sondra Chavira 350.1.13. 10 [facility] 4.2.7.2.686 Joseapryl ellis Adolph [phone] Or dical [address] 2019-04-30 2019-04-30 Outpatient [facility] [id number] Common 13:30:00 13:30:[address] [facility] Results Test Description Test Time Test Comments Results Result Comments Source COMP. METABOLIC PANEL (84892) 2021-08-04 17:13:25 Test Item Value Reference Range Interpretation Comme nts NA (test code = 3829797021) 139 mmol/L 135-145 K (test code = 4517005908) 4.2 mmol/L 3.5-5.0 CL (test code = 0578322422) 109 mmol/L 98-108 H CO2 TOTAL (test code = 9980594996) 20 mmol/L 23-31 L AGAP (test code = 9760873460) 2-16 BUN (test code = 9457032112) 10 mg/dL 7-23 GLUCOSE (test code = 3708873258) 100 mg/dL 70-110 CREATININE (test code = 0.57 mg/dL 0.50-1.04 8051660528) TOTAL BILI (test code = 0.4 mg/dL 0.1-1.2 3371358906) CALCIUM (test code = 8183184299) 9.4 mg/dL 8.6-10.6 T PROTEIN (test code = 0358743924) 7.2 g/dL 6.3-8.2 ALBUMIN (test code = 1440576226) 4.5 g/dL 3.5-5.0 ALK PHOS (test code = 8511837904) 76 U/L 34-122 ALTv (test code = 1742-6) 22 U/L 5-35 AST(SGOT) (test code = 2048887599) 26 U/L 13-40 eGFR (test code = 3346769566) mL/min/1.73m2 NAHUM (test code = NAHUM) Association [...] tests). Lab Interpretation (test code = Abnormal 46239-1) [facility] Test Item Value Reference Range Interpretation Comments LIPASE (test code = 7173370591) 74 U/L 0-220 Lab Interpretation (test code = Normal 37132-9) [id number] 17:00:06 Test Item Value Reference Range Interpretation [...] RDW-SD (test code = 41.0 fL 39.0-49.9 12304-1) RDW-CV (test code = 12.2 % 12.0-15.5 788-0) PLT (test code = See_Comment H [Automated 777-3) message] The sy stem which generated this result transmitted reference range : 166 - 358 10*3/ ?L. The reference r shahbaz was not used to interpret this result as normal/abnormal . MPV (test code = 10.0 fL 9.5-12.9 18216-5) NRBC/100 WBC (test See_Comment [Automat ed code = [id number]) message] The system which generated this result transmitted reference range : 0.0 - 10.0 /100 WBCs. The refer ence range was not u sed to interpret th is result as normal/abnormal . NRBC x10^3 (test code <0.01 See_Comment [Auto mated = [id number]) message] The s ystem which generated this result transmitted reference range : 10*3/?L. The reference range was not used to interpret this result as normal/abnormal . GRAN MAT (NEUT) % 57.4 % (test code = 770-8) IMM GRAN % (test code 0.30 % = [id number]) LYMPH % (test code = 34.0 % 736-9) MONO % (test code = 5.5 % 5905-5) EOS % (test code = 1.9 % 713-8) BASO % (test code = 0.9 % 706-2) GRAN MAT x10^3(ANC) 6.05 10*3/uL 1.88-7.09 (test code = [id number]) IMM GRAN x10^3 (test 0.03 10*3/uL 0.00-0.06 code = [id number]) LYMPH x10^3 (test code 3.59 10*3/uL 1.32-3.29 H = 731-0) MONO x10^3 (test code 0.58 10*3/uL 0.33-0.92 = 742-7) EOS x10^3 (test code = 0.20 10*3/uL 0.03-0.39 711-2) BASO x10^3 (test code 0.10 10*3/uL 0.01-0.07 H = 704-7) Lab Interpretation Abnormal (test code = 62922-9) [facility] WO [id number] 19:58:17 No evidence of fracture or traumatic [...] traumatic malalignment.No joint effusion.RL: 4400End of report UnB[facility] PflugervilleXR KNEE 3 VW [id number] 17:44:46 Questionable lateral tibial plateau fracture with [...] the lateral tibial plateau onthe lateral view. [facility], Radiant Results Inft User - 05/20/2021 12:45 [...] characterized with a CT scan of the knee.Osteoarthrosis.[facility] 2021-01-21 21:26:51 Test Item Value Reference Range Interpretation Comments APPEARANCE (test code = Hazy Clear A 1920484885) COLOR (test code = Yellow Yellow 5469715249) PH (test code = 4.8-8.0 3915653131) SP GRAVITY (test code = 1.003-1.030 4606728451) GLU U QUAL (test code = Normal Normal 0473462461) BLOOD (test code = 2+ Negative A 7932205697) KETONES (test code = 5 mg/dL Negative A 7939843436) PROTEIN (test code = Negative Negative 2887-8) UROBILIN (test code = Normal Normal 4521415770) BILIRUBIN (test code = Negative Negative 1324604725) NITRITE (test code = Negative Negative 3373074998) LEUK CHRIS (test code = Negative Negative 7607648877) RBC/HPF (test code = See_Comment H [Autom ated message] 5056664788) The system [employer] generated this result transmitted ref erence range: 0 - 3 HP F. The reference range was not used to int erpret this result as normal/abnormal . WBC/HPF (test code = See_Comment [Autom ated message] 8190802692) The system [employer] generated this result transmitted ref erence range: 0 - 5 HP F. The reference range was not used to int erpret this result as normal/abnormal . BACTERIA (test code = Few Negative A 2004277162) MUCOUS (test code = Moderate Negative LPF A 5704967637) SQ EPITH (test code = HPF 3859751053) Lab Interpretation (test Abnormal code = 07361-2) [facility] (NA, K, CL, CO2, GLUCOSE, BUN, CREATININE, CA)2021-01-21 20:06:25 Test Item Value Reference Range Interpretation Comments NA (test code = 139 mmol/L 135-145 3659601436) K (test code = 3.9 mmol/L 3.5-5.0 0117450006) CL (test code = 105 mmol/L 98-108 5421367082) CO2 TOTAL (test code 25 mmol/L 23-31 = 0177943841) AGAP (test code = 2-16 8876779743) BUN (test code = 14 mg/dL 7-23 2690088366) GLUCOSE (test code = 96 mg/dL 70-110 3499721788) CREATININE (test code 0.69 mg/dL 0.50-1.04 = 6329520179) CALCIUM (test code = 9.4 mg/dL 8.6-10.6 5809370009) eGFR (test code = mL/min/1.73m2 9155436258) NAHUM (test code = NAHUM) Association of [...] or urine or abnormalities in imaging tests). [facility] with [id number] 19:53:28 Test Item Value Reference Range Interpretation Comments WBC (test code = See_Comment H [Automated 9690-2) message] The sy stem which generated this [...] RDW-SD (test code = 39.5 fL 39.0-49.9 66203-6) RDW-CV (test code = 12.1 % 12.0-15.5 788-0) PLT (test code = See_Comment H [Automated 777-3) message] The sy stem which generated this result transmitted reference range : 166 - 358 10*3/ ?L. The reference r shahbaz was not used to interpret this result as normal/abnormal . MPV (test code = 9.3 fL 9.5-12.9 L 24164-7) NRBC/100 WBC (test See_Comment [Automat ed code = 1065609634) message] The system which generated this result transmitted reference range : 0.0 - 10.0 /100 WBCs. The refer ence range was not u sed to interpret th is result as normal/abnormal . NRBC x10^3 (test code <0.01 See_Comment [Auto mated = 6546243918) message] The s ystem which generated this result transmitted reference range : 10*3/?L. The reference range was not used to interpret this result as normal/abnormal . GRAN MAT (NEUT) % 80.9 % (test code = 770-8) IMM GRAN % (test code 0.30 % = 1226999763) LYMPH % (test code = 10.6 % 736-9) MONO % (test code = 6.5 % 5905-5) EOS % (test code = 0.9 % 713-8) BASO % (test code = 0.8 % 706-2) GRAN MAT x10^3(ANC) 9.40 10*3/uL 1.88-7.09 H (test code = 2738197624) IMM GRAN x10^3 (test 0.04 10*3/uL 0.00-0.06 code = 5594836701) LYMPH x10^3 (test code 1.23 10*3/uL 1.32-3.29 L = 731-0) MONO x10^3 (test code 0.76 10*3/uL 0.33-0.92 = 742-7) EOS x10^3 (test code = 0.11 10*3/uL 0.03-0.39 711-2) BASO x10^3 (test code 0.09 10*3/uL 0.01-0.07 H = 704-7) Lab Interpretation Abnormal (test code = 38765-0) [facility] CenterCOVID[facility] (ID NOW RAPID TESTING)2021-01-21 19:10:38 Test Item Value Reference Range Interpretation Comments SARS-CoV-2 Rapid ID NOW Not Detected Not Detected (test code = 90985-6) NAHUM (test code = NAHUM) ID NOW COVID-19 Assay is an isothermal nucleic acid amplification test intended for the qualitative detection of nucleic acid from SARS-CoV-2 viral RNA in nasopharyngeal ([employer]) specimens. It is used under Emergency Use [...] indicated. Lab Interpretation Normal (test code = 38513-6) [facility] CenterXR CHEST 1 [id number] 18:35:43HISTORY: Cough and SOB. FINDINGS: ?AP view of the chest showed normal appearance of thecardiomediastinal silhouette. No acute pneumonia, pleural effusion,pulmonary congestion detected. Old fracture deformity of mid right claviclenoted. CONCLUSIONS: No acute cardiopulmonary disease. [facility], Radiant Results Inft User - 01/21/2021 1:36 PM CDTHISTORY: Cough and SOB.FINDINGS: AP view of the chest showed normal appearance of thecardiomediastinal silhouette. No acute pneumonia, pleural effusion,pulmonary congestion detected. Old fracture deformity of mid right claviclenoted.CONCLUSIONS: No acute cardiopulmonary disease.[facility] CenterCT ANGIOGRAM [id number] 15:41:[address] neck[address] ANGIOGRAM NECK HISTORY: [...] from their subclavian originsthrough the vertebrobasilar junction. [facility], Radiant Results Inft User - 10/20/2020 [...] their subclavian originsthrough the vertebrobasilar junction.IMPRESSIONNormal CT neckUnBaylor Scott & White Medical Center – PflugervilleaPTT2020-12-29 15:07:00 Test Item Value Reference Range Interpretation Comments APTT Patient (test See_Comment [Automat ed code = 3173-2) message] The system which generated this result transmitted reference range : 23 - 38 Seconds . The reference range was not used to interpr et this result as normal/abnormal . NAHUM (test code = NAHUM) The [facility] patient population mean normal value for aPTT is 30 seconds. Lab Interpretation Normal (test code = 89901-9) [facility] CenterProthrombin Time (PT) / [id number] 15:05:00 Test Item Value Reference Range Interpretation Comments PROTIME PATIENT (test See_Comment [Auto mated message] code = 5964-2) The system [employer] generated this result transmitted ref erence range: 12.0 - 1 4.7 Seconds. The re ference range was not u sed to interpret this result as normal/abnor mal. INR (test code = 6301-6) Nor mal INR <1.1; Warfarin Therap eutic range 2.0 to 3. 0 or 2.5 to 3.5, dep ending upon the indica tions. Lab Interpretation (test Normal code = 61886-2) [facility] Metabolic Panel (NA, K, CL, CO2, GLUCOSE, BUN, CREATININE, CA)2020-10-20 14:21:00 Test Item Value Reference Range Interpretation Comments NA (test code = 140 mmol/L 135-145 8241728266) K (test code = 3.8 mmol/L 3.5-5 6346684032) CL (test code = 106 mmol/L 98-108 6746381395) CO2 TOTAL (test code = 25 mmol/L 23-31 1501534803) AGAP (test code = 2-16 0308149430) BUN (test code = 15 mg/dL 7-23 7128006168) GLUCOSE (test code = 108 mg/dL 70-110 4871892423) CREATININE (test code 0.65 mg/dL 0.5-1.04 = 6910188739) CALCIUM (test code = 9.2 mg/dL 8.6-10.6 7464755167) eGFR Calculation mL/min/1.73m2 (Non-) (test code = 8322397042) eGFR Calculation mL/min/1.73m2 () (test code = 8874872078) NAHUM (test code = NAHUM) Association of [...] or urine or abnormalities in imaging tests). [facility] CenterHepatic Function Panel (ALB, T.PRO, BILI T, BU/BC, ALT, AST, ALK PHOS)2020-10-20 14:20:00 Test Item Value Reference Range Interpretation Comments TOTAL BILI (test code = 5495990466) 0.4 mg/dL 0.1-1.1 BILI UNCON (test code = 9905055058) 0.3 mg/dL 0.1-1.1 BILI CONJ (test code = 9281666052) 0.0 mg/dL 0-0.3 T PROTEIN (test code = 7189143102) 7.3 g/dL 6.3-8.2 ALBUMIN (test code = 1908009891) 4.2 g/dL 3.5-5 ALK PHOS (test code = 0971901476) 96 U/L 34-122 ALTv (test code = 1742-6) 21 U/L 5-35 AST(SGOT) (test code = 7971604628) 23 U/L 13-40 Lab Interpretation (test code = Normal 37115-6) [facility] with [id number] 14:08:00 Test Item Value Reference Range Interpretation Comments WBC (test code = See_Comment [Automated 0090-2) message] The sy stem which generated this [...] RDW-SD (test code = 41.2 fL 39-49.9 66899-6) RDW-CV (test code = 12.3 % 12-15.5 788-0) PLT (test code = See_Comment H [Automated 777-3) message] The sy stem which generated this result transmitted reference range : 166 - 358 10*3/ ?L. The reference r shahbaz was not used to interpret this result as normal/abnormal . MPV (test code = 9.2 fL 9.5-12.9 L 09068-1) NRBC/100 WBC (test See_Comment [Automat ed code = 6793215967) message] The system which generated this result transmitted reference range : 0.0 - 10.0 /100 WBCs. The refer ence range was not u sed to interpret th is result as normal/abnormal . NRBC x10^3 (test code <0.01 See_Comment [Auto mated = 0564953344) message] The s ystem which generated this result transmitted reference range : 10*3/?L. The reference range was not used to interpret this result as normal/abnormal . GRAN MAT (NEUT) % 51.8 % (test code = 770-8) IMM GRAN % (test code 0.30 % = 4548419408) LYMPH % (test code = 36.1 % 736-9) MONO % (test code = 7.0 % 5905-5) EOS % (test code = 3.8 % 713-8) BASO % (test code = 1.0 % 706-2) GRAN MAT x10^3(ANC) 4.85 10*3/uL 1.88-7.09 (test code = 7719270474) IMM GRAN x10^3 (test 0.03 10*3/uL 0-0.06 code = 7667394352) LYMPH x10^3 (test code 3.39 10*3/uL 1.32-3.29 H = 731-0) MONO x10^3 (test code 0.66 10*3/uL 0.33-0.92 = 742-7) EOS x10^3 (test code = 0.36 10*3/uL 0.03-0.39 711-2) BASO x10^3 (test code 0.09 10*3/uL 0.01-0.07 H = 704-7) Lab Interpretation Abnormal (test code = 12386-9) [facility] CenterPOCT [id number] 14:00:00 Test Item Value Reference Range Interpretation Comments POCT PREG (test code = 1605) negative On board controls acceptable with present C Line (test code = 3574) POCT PREG LOT # (test code = 3575) [id number] POCT PREG TEST DATE (test 2022-02-19 code = 3576) Lab Interpretation (test code = Normal 33176-3) [facility] CenterRAD STREP SCREEN FOR GROUP [id number] 22:32:00 Test Item Value Reference Range Interpretation Comments Streptococcus pyogenes (group A) Negative Negative antigen (test code = 27726-9) Lab Interpretation (test code = Normal 86917-8) [facility] CenterType and Screen - The Type and Screen expires at midnight on the 3rd day after it was drawn. A current Type and Screen is required when RBCs are requested. For all other blood products, a Type and Scree n performed during the current hospitalizati...2020-01-03 15:17:39 Test Item Value Reference Range Interpretation Comments ABO & RH (test code A Positive Performe d at [facility] = 20) Laboratory Serv [facility] Blood Bank[address] [place] [phone] Free: [phone] A No. [id number] IAT (test code = Negative Performed a t [facility] 1185) Laboratory Serv [facility] Blood [facility] [place] [phone] Free: [phone] A No. [id number] [facility] METABOLIC PANEL (NA, K, CL, CO2, GLUCOSE, BUN, CREATININE, CA)2020-01-03 15:12:00 Test Item Value Reference Range Interpretation Comments NA (test code = 140 mmol/L 135-145 3838650406) K (test code = 3.8 mmol/L 3.5-5 0973679117) CL (test code = 111 mmol/L 98-108 H 2754298742) CO2 TOTAL (test code = 22 mmol/L 23-31 L 6829907465) AGAP (test code = 2-16 1724943541) BUN (test code = 15 mg/dL 7-23 4355335077) GLUCOSE (test code = 110 mg/dL 70-110 0437009256) CREATININE (test code = 0.60 mg/dL 0.5-1.04 3223984889) CALCIUM (test code = 8.8 mg/dL 8.6-10.6 2354591234) eGFR Calculation mL/min/1.73m2 (Non-) (test code = 6364525968) eGFR Calculation mL/min/1.73m2 () (test code = 6182493132) NAHUM (test code = NAHUM) Association of [...] tests). Lab Interpretation Abnormal (test code = 96109-5) [facility] WITH [id number] 14:41:00 Test Item Value Reference Range Interpretation Comments WBC (test code = See_Comment [Automated 3090-2) message] The sy stem which generated this [...] RDW-SD (test code = 39.9 fL 39-49.9 13979-2) RDW-CV (test code = 12.1 % 12-15.5 788-0) PLT (test code = See_Comment [Automated 777-3) message] The sy stem which generated this result transmitted reference range : 166 - 358 10*3/ ?L. The reference r shahbaz was not used to interpret this result as normal/abnormal . MPV (test code = 9.2 fL 9.5-12.9 L 46035-1) NRBC/100 WBC (test See_Comment [Automat ed code = 9578706065) message] The system which generated this result transmitted reference range : 0.0 - 10.0 /100 WBCs. The refer ence range was not u sed to interpret th is result as normal/abnormal . NRBC x10^3 (test code <0.01 See_Comment [Auto mated = 2900216769) message] The s ystem which generated this result transmitted reference range : 10*3/?L. The reference range was not used to interpret this result as normal/abnormal . GRAN MAT (NEUT) % 58.5 % (test code = 770-8) IMM GRAN % (test code 0.30 % = 7160623829) LYMPH % (test code = 30.8 % 736-9) MONO % (test code = 6.3 % 5905-5) EOS % (test code = 3.1 % 713-8) BASO % (test code = 1.0 % 706-2) GRAN MAT x10^3(ANC) 5.54 10*3/uL 1.88-7.09 (test code = 2336874710) IMM GRAN x10^3 (test 0.03 10*3/uL 0-0.06 code = 3319736254) LYMPH x10^3 (test code 2.92 10*3/uL 1.32-3.29 = 731-0) MONO x10^3 (test code 0.60 10*3/uL 0.33-0.92 = 742-7) EOS x10^3 (test code = 0.29 10*3/uL 0.03-0.39 711-2) BASO x10^3 (test code 0.09 10*3/uL 0.01-0.07 H = 704-7) Lab Interpretation Abnormal (test code = 48974-7) [facility] [id number] 14:03:00 Test Item Value Reference Range Interpretation Comments POCT PREG (test code = 1605) Negative On board controls acceptable with C Yes Line (test code = 3574) POCT PREG LOT # (test code = 3575) POCT PREG TEST DATE (test code = 3576) Lab Interpretation (test code = Normal 89302-6) [facility] CenterPOUT [id number] 22:54:00 Test Item Value Reference Range Interpretation Comments POCT PREG (test code = 1605) Negative On board controls acceptable with C Yes Line (test code = 3574) POCT PREG LOT # (test code = 3575) POCT PREG TEST DATE (test code = 3576) [facility] CenterPOUT [id number] 22:54:00 Test Item Value Reference Range Interpretation Comments POCT PREG (test code = 1605) Negative On board controls acceptable with C Yes Line (test code = 3574) POCT PREG LOT # (test code = 3575) POCT PREG TEST DATE (test code = 3576) [facility]"
[2023-06-07] MEDS ORDERED: ONDANSETRON 4 MG/2 ML VIAL ONE (12:52)
[2023-06-07] MEDS ORDERED: KETOROLAC 30 MG/ML INJ ONE (12:53)
[2023-06-07 12:54] LABS: Absolute Lymphocytes (CBC) 3.8 K/uL (0.7-4.9); Hematocrit 38.1 % (36.0-45.0); Lymphocytes % 38.1 % (15.3-44.8); MCV 88.6 fL (80-100); MPV 7.5 fL (7.6-11.3); Platelets 376 thou/uL (152-406)
[2023-06-07 13:11] LABS: Albumin 3.7 g/dL (3.4-5.0); Bilirubin Total 0.3 mg/dL (0.2-1.0); Potassium 3.7 mEq/L (3.5-5.1); Protein, Total 7.2 g/dL (6.4-8.2)
--- NOTE | 2023-06-07 13:13 | RAD REPORT ---
EXAM DESCRIPTION: CTAbdomen Pelvis W Contrast - 06/07/2023 1:03 pm CLINICAL HISTORY: Abdominal pain. ABD PAIN COMPARISON: Abdomen Pelvis W Contrast dated 03/20/2022; Abdomen Pelvis W Contrast dated 01/21/2019; Abdomen Pelvis W Contrast dated 05/28/2016 TECHNIQUE: Biphasic CT imaging of the abdomen and pelvis was performed with 100 ml non-ionic IV cont rast. All CT scans are performed using dose optimization technique as appropriate and may include automated exposure control or mA/KV adjustment according to patient size. FINDINGS: The lung bases are clear. The liver, spleen, pancreas, adrenal glands and kidneys are within normal limits. No bowel obstruction, free air, intra-abdominal free fluid or abscess. The appendix is normal. No e vidence of significant lymphadenopathy. No suspicious bony findings. The right ovary appears enlarged measure up to 6 cm with multiple cysts cystic structures present. A small amount of pelvic free fluid. IMPRESSION: Enlarged right ovary measuring up to 6 cm with multiple cystic structure is present. Tra ce pelvic free fluid. Recommend follow-up transvaginal ultrasound.
[2023-06-07] MEDS ORDERED: NA CHLORIDE 0.9% 1,000 ML ONE (13:20)
[2023-06-07] MEDS ORDERED: MORPHINE 4 MG/ML SYR ONE ×3 (13:20→15:01)
[2023-06-07 13:34] LABS: Specific Gravity > 1.030 (1.005-1.030)
[2023-06-07 13:36] LABS: Specific Gravity > 1.030 (1.005-1.030); Urine Bacteria <20 /HPF (<20); Urine Bilirubin NEGATIVE (Negative); Urine Blood 1+ (Negative); Urine Clarity Clear (Clear); Urine Color Colorless (Yellow); Urine Glucose NEGATIVE (Negative); Urine Mucus Slight /HPF (None Seen); Urine Protein NEGATIVE (Negative); Urine RBC <5 /HPF (None Seen); Urine Urobilinogen Normal (Normal); Urine pH 5.5 (5.0-7.0)
[2023-06-07] MEDS ORDERED: ONDANSETRON 4 MG (ODT) TAB ONE (13:52)
--- NOTE | 2023-06-07 14:34 | RAD REPORT ---
EXAM DESCRIPTION: US - Transvaginal Study Probe - 06/07/2023 2:03 pm CLINICAL HISTORY: ABD PAIN Pelvic pain. COMPARISON: <Comparisons> FINDINGS: The uterus is surgically absent. Left ovary nonvisualized. Right ovary is enlarged measuring 5.9 x 3.9 x 4.3 cm. 2.7 x 2.7 cm intermediate echo lesion is presen t right ovary. Normal blood flow seen of the right ovary. Mild pelvic free fluid. IMPRESSION: The right ovary is mildly enlarged in size without evidence of torsion. There is a 2.7 c m complex appearing lesion in the right ovary which may represent endometrioma or hemorrhagic cyst. R ecommend follow-up pelvic ultrasound in 6 weeks.
--- NOTE | 2023-06-07 15:03 | EDPHYS ---
Physician Documentation [facility] Name: Kelsi Leung Age: 38 yrs Sex: Female : 1985 Arrival Date: 06/07/2023 Time: 12:11 Bed DIS3 Private MD: ED Physician Parviz Mas HPI: 06/07 16:06 This 38 yrs old Female presents to ER via Ambulatory with complaints of Abdominal Pain sb4 - RLQ. 16:06 The patient presents with abdominal pain right lower quadrant. Onset: The sb4 symptoms/episode began/occurred yesterday. The pain does not radiate. Modifying factors: The symptoms are alleviated by nothing. the symptoms are aggravated by movement. The symptoms. 19:09 patient reports RLQ pain that started yesterday and got significantly worse today. she sb4 has history of IBS and questionable ulcerative colitis vs crohns disease and initially attributed it to that, but today the pain got worse than her typical pain. she denies any vaginal bleeding, chest pain, shortness of breath, fever, chills. 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 - Social history:: Smoking status: Patient denies any tobacco usage or history of. ROS: 19:09 Constitutional: Negative for fever, chills, and weight loss. sb4 19:09 Abdomen/GI: Positive for abdominal pain, Negative for nausea, vomiting, and diarrhea. 19:11 All other systems are negative. sb4 Exam: 19:11 Constitutional: This is a well developed, well nourished patient who is awake, alert, sb4 and in no acute distress. Head/Face: Normocephalic, atraumatic. Eyes: Extra-ocular motions intact. Periorbital areas with no swelling, redness, or edema. ENT: Mucous membranes moist. Cardiovascular: Regular rate and rhythm with a normal S1 and S2. Respiratory: Lungs have equal breath sounds bilaterally, clear to auscultation and percussion. No rales, rhonchi or wheezes noted. No increased work of breathing, no retractions or nasal flaring. Back: No spinal tenderness. No costovertebral tenderness. Full range of motion. Skin: Warm, dry with normal turgor. Normal color with no rashes, no lesions, and no evidence of cellulitis. MS/ Extremity: Pulses equal, no cyanosis. Neurovascular intact. Full, normal range of motion. 19:11 Abdomen/GI: Inspection: abdomen appears normal, Bowel sounds: normal, Palpation: soft, moderate abdominal tenderness, in the right lower quadrant. Vital Signs: 12:30 BP 148 / 107; Pulse 100; Resp 18 S; Temp 98.2(O); Pulse Ox 100% on R/A; Weight 77.11 cm10 kg; Height 5 ft. 3 in. ; Pain 10/10; 12:30 Pulse 94; cm10 13:21 BP 114 / 87; Pulse 84; Resp 18; Pulse Ox 99% on R/A; mb9 14:15 Pulse 64; Resp 18; Pulse Ox 98% on R/A; mb9 12:30 Body Mass Index 30.11 (77.11 kg, 160.02 cm) cm10 12:30 Pain Scale: Adult cm10 MDM: 12:14 Patient medically screened. sb4 19:11 Differential diagnosis: nephrolithiasis, pyelonephritis, UTI, appendicitis, sb4 Dysmenorrhea, Ectopic , Endometriosis, Menorrhagia, non-specific abd pain, Ovarian Torsion, Pelvic Inflammatory Disease, Pyelonephritis, Tubal Ovarian Abcess, Ureterolithiasis. Data reviewed: vital signs, nurses notes, lab test result(s), radiologic studies, and as a result, I will discharge patient. Consideration of Admission/Observation Escalation of care including admission/observation considered. Historians other than the Patient: Spouse/Significant Other: . Counseling: I had a detailed discussion with the patient and/or guardian regarding the historical points, exam findings, and any diagnostic results supporting the discharge/admit diagnosis, lab results, radiology results, the need for outpatient follow up, an OB/Gyne specialist, to return to the emergency department if symptoms worsen or persist or if there are any questions or concerns that arise at home. 06/07 12:37 Order name: CBC with Diff; Complete Time: 12:58 sb4 06/07 12:37 Order name: CMP; Complete Time: 13:14 sb4 06/07 12:37 Order name: Lipase; Complete Time: 13:14 sb4 06/07 12:37 Order name: Test, Urine; Complete Time: 13:37 sb4 06/07 12:37 Order name: Urinalysis w/ reflexes; Complete Time: 13:37 sb4 06/07 12:37 Order name: CT Abd/Pelvis - IV Contrast Only; Complete Time: 13:14 sb4 06/07 13:15 Order name: Transvaginal Study (probe); Complete Time: 14:36 sb4 06/07 12:37 Order name: IV Saline Lock; Complete Time: 12:40 sb4 06/07 12:37 Order name: Labs collected and sent; Complete Time: 12:40 sb4 Administered Medications: 12:54 Drug: TORadol - Ketorolac IVP 15 mg Route: IVP; Site: right antecubital; cm10 16:49 Follow up: Response: No adverse reaction nj1 12:54 Drug: Ondansetron IVP 4 mg Route: IVP; Site: right antecubital; cm10 16:49 Follow up: Response: No adverse reaction nj1 13:21 Drug: NS 0.9% IV 1000 ml Route: IV; Rate: 1 bolus; Site: right antecubital; mb9 16:30 Follow up: Response: No adverse reaction; IV Status: Completed infusion; IV Intake: nj1 1000ml 13:21 Drug: morphine IVP or IV 4 mg Route: IVP; Infused Over: 4 mins; Site: right antecubital;mb9 16:50 Follow up: Response: No adverse reaction nj1 14:54 Drug: morphine IVP or IV 4 mg Route: IVP; Infused Over: 4 mins; Site: right antecubital;mb9 15:30 Follow up: Response: No adverse reaction nj1 15:34 Drug: Ellsworth PO 10 mg-325 mg 1 tabs Route: PO; nj1 16:30 Follow up: Response: No adverse reaction nj1 Disposition: 17:43 Co-signature as Attending Physician, Parviz Mas MD I reviewed the patient's care rt provided by the Advanced Practice Provider and agree with the diagnosis and treatment plan. Disposition Summary: 06/07/23 15:03 Discharge Ordered Location: Home sb4 Problem: new sb4 Symptoms: have improved sb4 Condition: Stable sb4 Diagnosis - Other ovarian cysts sb4 Followup: sb4 - With: - When: 2 - 3 days - Reason: Further diagnostic work-up, Recheck today's complaints, Re-evaluation by your physician Discharge Instructions: - Discharge Summary Sheet sb4 - Ovarian Cyst, Obfy-sl-Tlxr sb4 Forms: - Work release form bp - Medication Reconciliation Form sb4 - Thank You Letter sb4 - Antibiotic Education sb4 - Prescription Opioid Use sb4 - Patient Portal Instructions sb4 - Leadership Thank You Letter sb4 Prescriptions: - Tramadol 50 mg Oral Tablet - take 1 tablet by ORAL route every 8 hours as needed; 12 tablet; Refills: 0, sb4 Product Selection Permitted Signatures: Dispatcher [employer] EDMS Waleska Vasquez PA-C PA-C sb4 Jayshree Christiansen RN RN mb9 Parviz Mas MD MD rt Cleo Cardona RN RN nj1 Anjali Mcrae RN RN cm10 Corrections: (The following items were deleted from the chart) 12:33 12:33 PMHx: Crohn's Disease; cm10 cm10
--- NOTE | 2023-06-07 15:03 | ER ---
Nurse's Notes [facility] Name: Kelsi Leung Age: 38 yrs Sex: Female : 1985 Arrival Date: 06/07/2023 Time: 12:11 Bed DIS3 Private MD: Diagnosis: Other ovarian cysts Presentation: 06/07 12:30 Chief complaint: Patient states: RLQ abdominal pain onset yesterday. Pt states that the cm10 pain is worse with walking. Pt reports nausea denies fever, diarrhea. Pt is tender to touch on RLQ. Coronavirus screen: Vaccine status: Patient reports being unvaccinated. Client denies travel out of the [place] in the last 14 days. Ebola Screen: Patient denies travel to an Ebola-affected area in the 21 days before illness onset. No symptoms or risks identified at this time. Initial Sepsis Screen: Does the patient meet any 2 criteria? HR > 90 bpm. No. Patient's initial sepsis screen is negative. Does the patient have a suspected source of infection? No. Patient's initial sepsis screen is negative. Risk Assessment: Do you want to hurt yourself or someone else? Patient reports no desire to harm self or others. Onset of symptoms. 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 - Social history:: Smoking status: Patient denies any tobacco usage or history of. Screenin:00 [facility] ED Fall Risk Assessment (Adult) History of falling in the last 3 months, mb9 including since admission No falls in past 3 months (0 pts) Confusion or Disorientation No (0 pts) Intoxicated or Sedated No (0 pts) Impaired Gait No (0 pts) Mobility Assist Device Used No (0 pt) Altered Elimination No (0 pt) Score/Fall Risk Level 0 - 2 = Low Risk Oriented to surroundings, Maintained a safe environment, Educated pt \T\ family on fall prevention, incl call for assistance when getting out of bed. Abuse screen: Denies threats or abuse. Nutritional screening: No deficits noted. Tuberculosis screening: No symptoms or risk factors identified. Assessment: 13:03 Reassessment: pt taken to CT via wheelchair. mb9 13:21 General: Appears uncomfortable, Behavior is calm, cooperative. Pain: Complains of pain mb9 in abdomen Pain radiates to RLQ Pain currently is 8 out of 10 on a pain scale. Quality of pain is described as throbbing, Pain began suddenly, Is continuous. Neuro: Daugherty Agitation-Sedation Scale (RASS): 0 - Alert and Calm Level of Consciousness is awake, alert, obeys commands, Oriented to person, place, time, situation, Appropriate for age. Cardiovascular: Patient's skin is warm and dry. Respiratory: Airway is patent Respiratory effort is even, unlabored, Respiratory pattern is regular, symmetrical. GI: Abdomen is round non-distended, Bowel sounds present X 4 quads. Abd is soft Abdomen is tender to palpation in right lower quadrant Reports diarrhea, nausea, vomiting. : No signs and/or symptoms were reported regarding the genitourinary system. EENT: No signs and/or symptoms were reported regarding the EENT system. Derm: Skin is pink, warm \T\ dry. Musculoskeletal: Range of motion: intact in all extremities. 13:29 Reassessment: pt taken to ultrasound via wheelchair. mb9 14:15 Reassessment: Patient and/or family updated on plan of care and expected duration. Pain mb9 level reassessed. Patient is alert, oriented x 3, equal unlabored respirations, skin warm/dry/pink. Patient states feeling better. Patient states symptoms have improved. 15:34 Reassessment: Patient appears in no apparent distress at this time. Patient and/or nj1 family updated on plan of care and expected duration. Pain level reassessed. Patient is alert, oriented x 3, equal unlabored respirations, skin warm/dry/pink. 15:34 Pain: Complains of pain in right lower quadrant Pain currently is 6 out of 10 on a pain nj1 scale. 16:30 Reassessment: Patient appears in no apparent distress at this time. Patient and/or nj1 family updated on plan of care and expected duration. Pain level reassessed. Patient is alert, oriented x 3, equal unlabored respirations, skin warm/dry/pink. Patient states feeling better. Patient states symptoms have improved. Vital Signs: 12:30 BP 148 / 107; Pulse 100; Resp 18 S; Temp 98.2(O); Pulse Ox 100% on R/A; Weight 77.11 cm10 kg; Height 5 ft. 3 in. ; Pain 10/10; 12:30 Pulse 94; cm10 13:21 BP 114 / 87; Pulse 84; Resp 18; Pulse Ox 99% on R/A; mb9 14:15 Pulse 64; Resp 18; Pulse Ox 98% on R/A; mb9 12:30 Body Mass Index 30.11 (77.11 kg, 160.02 cm) cm10 12:30 Pain Scale: Adult cm10 ED Course: 12:12 Patient arrived in ED. rg4 12:14 Waleska Vasquez PA-C is PHCP. sb4 12:14 Parviz Mas MD is Attending Physician. sb4 12:33 Triage completed. cm10 12:33 Arm band placed on Patient placed in an exam room, on a stretcher. cm10 12:46 CBC with Diff Sent. cm10 12:47 CMP Sent. cm10 12:47 Lipase Sent. cm10 12:47 Initial lab(s) drawn, by me, sent to lab. Inserted saline lock: 22 gauge in right cm10 antecubital area, using aseptic technique. Blood collected. 12:57 Jayshree Christiansen, RN is Primary Nurse. mb9 13:00 Placed in gown. Bed in low position. Call light in reach. Side rails up X 1. Client mb9 placed on continuous cardiac and pulse oximetry monitoring. NIBP monitoring applied. 13:05 CT Abd/Pelvis - IV Contrast Only In Process Unspecified. EDMS 13:22 No provider procedures requiring assistance completed. mb9 14:05 Transvaginal Study (probe) In Process Unspecified. EDMS 15:02 Alisa Lindsay MD is Referral Physician. sb4 16:30 Provided Education on: Pain medication.. nj1 16:30 IV discontinued, intact, bleeding controlled. nj1 Administered Medications: 12:54 Drug: TORadol - Ketorolac IVP 15 mg Route: IVP; Site: right antecubital; cm10 16:49 Follow up: Response: No adverse reaction nj1 12:54 Drug: Ondansetron IVP 4 mg Route: IVP; Site: right antecubital; cm10 16:49 Follow up: Response: No adverse reaction nj1 13:21 Drug: NS 0.9% IV 1000 ml Route: IV; Rate: 1 bolus; Site: right antecubital; mb9 16:30 Follow up: Response: No adverse reaction; IV Status: Completed infusion; IV Intake: nj1 1000ml 13:21 Drug: morphine IVP or IV 4 mg Route: IVP; Infused Over: 4 mins; Site: right antecubital;mb9 16:50 Follow up: Response: No adverse reaction nj1 14:54 Drug: morphine IVP or IV 4 mg Route: IVP; Infused Over: 4 mins; Site: right antecubital;mb9 15:30 Follow up: Response: No adverse reaction nj1 15:34 Drug: [place] PO 10 mg-325 mg 1 tabs Route: PO; nj1 16:30 Follow up: Response: No adverse reaction nj1 Medication: 13:00 VIS not applicable for this client. mb9 Intake: 16:30 IV: 1000ml; Total: 1000ml. nj1 Outcome: 15:03 Discharge ordered by . sb4 16:30 Discharged to home ambulatory, with significant other. nj1 16:30 Condition: stable 16:30 Discharge instructions given to patient, significant other, Instructed on discharge instructions, follow up and referral plans. medication usage, safety practices, Demonstrated understanding of instructions, follow-up care, medications, Prescriptions given X 1. 16:30 Patient left the ED. nj1 Signatures: Dispatcher [employer] EDOH Kari Dsouza 4 Waleska Vasquez PA-C PAShimon negron4 Jayshree Christiansen RN RN mb9 Cleo Cardona RN RN nj1 Anjali Mcrae RN RN cm10 Corrections: (The following items were deleted from the chart) 12:33 12:33 PMHx: Crohn's Disease; cm10 cm10 16:55 16:53 Patient left the ED. nj1 nj1
[2023-06-07] MEDS ORDERED: HYDROCODONE/APAP 10/325 TAB ONE (15:42)
[2023-06-07 16:59] VITALS: TEMP 98.2
[2023-06-07 17:01] VITALS: BP 114/87
[2023-06-07 17:02] VITALS: O2SAT 98
== END 2023-06-07 16:53 | disposition home or self-care (01) ==
LOC: ER 12:11
DX: N83.291 Other ovarian cyst, right side (principal); Z88.8 Allergy status to other drugs, medicaments and biological substances
CPT/HCPCS: 85025; 81001; 36415; 81025; 83690; 80053; 74177; 76830; Q9967; Q0162; J2405; J7030

== ENCOUNTER 2024-10-03 22:28 | Emergency (ER) | payer OTHER ==
--- OUTSIDE RECORDS SUMMARY | 2024-10-03 22:33 | XMS REPORT | Continuity of Care Document ---
Author Name Unknown Address [address] [place] [id number] [facility] Address [address] [place] [address] Care Team Providers Care Hop Farmer Name Role Phone Benny Smart Primary Care Physician [phone] Benny Smart Attending Clinician Unavailable SONDRA CHAVIRA Attending Clinician UnavailSONDRA Ervin Attending Clinician Unavailsilver logan Doctor Unassigned, [place] Attending Clinician U lasha Rhodes RN, Yoli Enriquez Attending Clinician [phone] MICHELLE TONEY Attending Clinician Unavailable Derrick FRANKLIN, Jose Francisco Narayanan Attending Clinician [phone] Michelle Toney MD Attending Clinician [phone] Aris Hill MD Attending Clinician [phone] Armond Moore DO Attending Clinician [phone] Trev PAC, K Sydni Attending Clinician [phone] Doctor Unassigned, [place] Attending Clinician U Sandee Simon DO Attending Clinician [phone] SANDEE GUILLEN Attending Clinician Unavailab Tim Sinha DO Attending Clinician [phone] Aris Hill MD Attending Clinician [phone] Mary ANDERSEN, Li Attending Clinician Unavailable Isela CRAFT, Clarence Gurrola Attending Clinician [phone] Carmine FRANKLIN, Alyssa Muir Attending Clinician [phone] Cait FRANKLIN, Sondra Attending Clinician [phone] Brent PASTRANA, Carmen Attending Clinician [phone] Pob, [facility] Attending Clinician Unavailernestina e Nurse, [facility] Attending Clinician Un available SONDRA CHAVIRA Admitting Clinician Unavaila MICHELLE Galloway Admitting Clinician Unavailable Feng FRANKLIN, Michelle Admitting Clinician [phone] SANDEE GUILLEN Admitting Clinician Unavailab albina Chavira MD, Sondra Admitting Clinician [phone] Payers Payer Name Policy Type Policy Number Effective Date Expirati on Date Source [facility] [id number] 2016 00:00:00 90 Degree Benefits 53 [id number] 2023 00:00:00 [facility] [id number] [facility] [id number] [facility] [id number] [facility] [id number] [facility] [id number] [facility] Problems Condition Name Condition Details Condition Category Status Onset Date Resolution Date Last Treatment Date Treating Clinician Comments Source Allergic reaction, initial encounter Allergic reaction, initial encounter Disease Active 06-13 00:00: 00 [facility] Wasp sting, accidental or unintentio nal, initial encounter Wasp sting, accidental or unintentio nal, initial encounter Disease Active 8-16 00:00: 00 [facility] Status post laparoscop ic hysterecto my Status post laparoscop ic hysterecto my Disease Active 3-27 00:00: 00 [facility] BV (bacterial vaginosis) BV (bacterial vaginosis) Disease Active 04-17 00:00: 00 [facility] Cervical high risk human papillomav irus (HPV) DNA test positive Cervical high risk human papillomav irus (HPV) DNA test positive Disease Active 04-17 00:00: 00 Overview: Formattin g of this note might be different from the original. 04/10/19 - pap smear was normal but HPV 6 was positive. Started on DepoProve ra March 2019. [facility] Abdominal pain, generalize d Abdominal pain, generalize d Disease Active 04-10 00:00: 00 Overview: Formattin g of this note might be different from the original. Patient followed by GI in [facility] Menorrhagi a with regular cycle Menorrhagi a with regular cycle Disease Active 04-10 00:00: 00 [facility] Dysmenorrh ea Dysmenorrh ea Disease Active 04-10 00:00: 00 [facility] Menorrhagi a with regular cycle Menorrhagi a with regular cycle Disease Active 04-10 00:00: 00 Overview: Formattin g of this note might be different from the original. March 2019 - DepoProve ra started. 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 01/03/2020 - s/p TLH and b/l salpingec lorraine. Pathology benign with no pathology seen. [facility] [id number] Constipati on, unspecifie d constipati on type Problem [facility] [id number] GERD without esophagiti s Problem [facility] [id number] Hyperlipid emia, unspecifie d hyperlipid emia type Problem [facility] [id number] Loss of taste Problem [facility] [id number] Tobacco use disorder Problem [facility] [id number] Generalize d anxiety disorder Problem [facility] [id number] Primary insomnia Problem [facility] [id number] Migraine without aura and without status migrainosu s, not intractabl e Problem [facility] Spondylosi s Spondylosi s Problem [facility] [id number] Crohn's disease with complicati on, unspecifie d gastrointe stinal tract location Problem [facility] [id number] Autoimmune disease Problem [facility] [id number] Body mass index [BMI] 32.0-32.9, adult Problem [facility] [id number] Other obesity due to excess calories Problem [facility] Allergies, Adverse Reactions, Alerts Allergy Name Allergy Type Status Severity Reaction(s) Onset Date Inactive Date Treating Clinician Comments Source VENOM-WA SP DRUG INGREDI Active Swelling 06-13 00:00: 00 [facility] Venom-Wa sp Propensi ty to adverse reaction s Active Swelling 06-13 00:00: 00 [facility] SERTRALI NE DRUG INGREDI Active High Unknown-Cmnt 0 313 00:00: 00 [facility] sertrali ne sertrali ne Active Unknown [facility] NO KNOWN ALLERGIE S Drug Class Active [facility] Social History Social Habit Start Date Stop Date Quantity Comments Source Exposure to SARS-CoV-2 (event) Not sure [facility] Sexual orientation U [facility] Sex Assigned At [facility] History of Tobacco Use [facility] Alcoholic beverage intake 2024-06-07 00:00:00 2024-06-07 00:00:00 Ex-drinker (finding) [facility] Alcohol intake 2021-08-04 00:00:00 2021-08-04 00:00:00 Ex-drinker (finding) [facility] History of Social function 2020-01-03 00:00:00 2020-01-03 00:00:00 [facility] Tobacco Comment 2019-12-31 00:00:00 2019-12-31 00:00:00 1/2 ppd [facility] Tobacco use and exposure 2019-12-31 00:00:00 2019-12-31 00:00:00 Smokeless tobacco non-user [facility] Smoking Status Start Date Stop Date Source Former Smoker 2024-06-19 00:00:00 2024-06-19 00:00:00 [facility] Never smoked tobacco [facility] Smokes tobacco daily 2019-12-31 00:00:00 [facility] Medications Ordered Medication Name Filled Medication Name Start Date Stop Date Current Medication? Ordering Clinician Indication Dosage Frequency Signature (SIG) Comments Components Source diazePAM 2 MG diazePAM 2 MG 06-21 00:00: 00 No 1{table t_as_ne eded} QD diazePAM 2 MG EPINEPHrine 0.3 MG/0.3ML EPINEPHrine 0.3 MG/0.3ML 06-18 00:00: 00 No EPINEPHrin e 0.3 MG/0.3ML predniSONE (DELTASONE) tablet 40 mg 06-15 01:00: 00 06-19 13:59 :00 No 40mg [facility] pantoprazol e 40 mg EC tablet 06-15 00:00: 00 06-26 04:59 :00 No [id number] 40mg Take 1 tablet by mouth every morning for 10 days. [facility] butalbital- acetaminoph en-caff (ESGIC) 50-325-40 mg tablet 1 tablet 06-14 19:45: 00 06-14 18:53 :00 No 1{tbl} 1 tablet, Oral, ONCE, 1 dose, On Mon06/14/24 at 1445, Routine [facility] pantoprazol e (PROTONIX) EC tablet 40 mg 06-14 04:15: 00 Yes 40mg 40 mg, Oral, QAM-0600, First dose on Mon06/13/24 at 2315, Until Discontinu ed, [facility] hydrOXYzine (ATARAX) tablet 10 mg 06-14 04:10: 52 Yes 10mg 10 mg, Oral, Q6HPRN, Starting on Mon06/13/24 at 2310, Until Discontinu ed, Routine, Anxiety [facility] busPIRone (BUSPAR) tablet 5 mg 06-14 01:00: 00 Yes 5mg 5 mg, Oral, BID, First dose on Mon06/13/24 at 2000, Until Discontinu ed, Routine [facility] famotidine (PEPCID AC) tablet 20 mg 06-14 01:00: 00 06-14 04:07 :36 No 20mg 20 mg, Oral, BID, First dose on Mon06/13/24 at 2000, Until Discontinu ed, Routine [facility] diphenhydrA MINE 50 mg capsule 06-14 00:00: 00 07-05 04:59 :00 No [id number] 50mg Take 1 capsule by mouth every 4 (four) hours as needed for Allergies or Itching for up to 20 days. [facility] acetaminoph en-caff-but albital (ESGIC) per capsule 06-14 00:00: 00 06-20 04:59 :00 No [id number] 1{capsu le} Take 1 capsule by mouth every 6 (six) hours as needed for Pain for up to 5 days. [facility] predniSONE 20 mg tablet 06-14 00:00: 00 06-19 04:59 :00 No [id number] 40mg Take 2 tablets by mouth in the morning for 4 days. [facility] enoxaparin (LOVENOX) injection 40 mg 06-13 22:00: 00 Yes 40mg 40 mg, Subcutaneo us, DAILY, First dose on Mon06/13/24 at 1700, Until Discontinu ed, Routine [facility] diphenhydrA MINE (BENADRYL) tablet 50 mg 06-13 17:00: 00 06-14 04:10 :32 No 50mg 50 mg, Oral, Q6H, First dose on Mon06/13/24 at 1200, Until Discontinu ed, Routine [facility] diazePAM (VALIUM) tablet 5 mg 06-13 15:15: 17 Yes 5mg 5 mg, Oral, BIDPRN, Starting on Mon06/13/24 at 1015, Until Discontinu ed, Routine, Anxiety [facility] ondansetron (ZOFRAN (PF)) injection 4 mg 06-13 15:14: 51 Yes 4mg [facility] morpHINE (4 mg/mL) injection 4 mg 06-13 15:14: 49 06-14 15:13 :49 No 4mg 4 mg, Slow IV Push, Q4HPRN, Starting on Mon06/13/24 at 1014, Until Mon06/14/24 at 1013, Routine, Pain (scale 7-10) [facility] HYDROcodone -acetaminop hen (NORCO 5) tablet 1 tablet 06-13 15:14: 31 06-15 15:13 :31 No 1{tbl} 1 tablet, Oral, Q6HPRN, Starting on Mon06/13/24 at 1014, Until Mon06/15/24 at 1013, Routine, Pain (scale 4-6) [facility] acetaminoph en (TYLENOL) tablet 650 mg 06-13 15:14: 25 Yes 650mg [facility] NaCl 0.9% (NS) bolus infusion 1,000 mL 06-13 13:30: 00 06-13 13:36 :00 No 1000mL at 999 mL/hr, 1,000 mL, IV Infusion, ONCE, 1 dose, On Mon06/13/24 at 0830, STAT [facility] methylpredn isolone sod succ (SOLU-MEDRO L) injection 125 mg 06-13 13:30: 00 06-13 12:52 :00 No 125mg 125 mg, Intravenou s, ONCE, 1 dose, On Catherine 06/13/24 at 0830, 2 mL [facility] diphenhydrA MINE (BENADRYL) injection 50 mg 06-13 12:45: 00 06-13 12:51 :00 No 50mg 50 mg, Intravenou s, ONCE, 1 dose, On Catherine 06/13/24 at 0745, WATSON [facility] famotidine (PEPCID (PF)) injection 20 mg 06-13 12:45: 00 06-13 12:51 :00 No 20mg 20 mg, Slow IV Push, ONCE, 1 dose, On Catherine 06/13/24 at 0745, [facility] OMEPRAZOLE ORAL 06-08 16:16: 51 06-08 00:00 :00 No 40mg Take 40 mg by mouth. [facility] diazePAM (VALIUM) tablet 2.5 mg 06-08 16:01: 34 Yes 2.5mg 2.5 mg, Oral, BIDPRN, Starting on 06/08/24 at 1101, Until Discontinu ed, Routine, Anxiety [facility] HYDROcodone -acetaminop hen (NORCO 5) tablet 1 tablet 06-08 14:42: 22 Yes 1{tbl} 1 tablet, Oral, Q6HPRN, Starting on 06/08/24 at 0942, Until Discontinu ed, Routine, Pain (scale 4-6) [facility] ketorolac (TORADOL) injection 30 mg 06-08 14:41: 51 06-10 14:40 :51 No 30mg 30 mg, Slow IV Push, Q8HPRN, Starting on 06/08/24 at 0941, Until 06/10/24 at 0940, Routine, Pain (scale 7-10) [facility] predniSONE (DELTASONE) tablet 40 mg 06-08 14:00: 00 Yes 40mg 40 mg, Oral, DAILY, First dose on 06/08/24 at 0900, Until Discontinu ed, Routine [facility] enoxaparin (LOVENOX) injection 40 mg 06-08 14:00: 00 Yes 40mg 40 mg, Subcutaneo us, DAILY, First dose on Mon06/08/24 at 0900, Until Discontinu ed, Routine [facility] HYDROcodone -acetaminop hen (NORCO 5) tablet 1 tablet 06-08 13:33: 06 06-08 14:42 :37 No 1{tbl} 1 tablet, Oral, Q6HPRN, Starting on Mon06/08/24 at 0833, Until Mon06/08/24 at 0942, Routine, Pain (scale 7-10) [facility] mupirocin (BACTROBAN OINT) 2 % oinintment 06-08 13:00: 00 Yes [facility] diphenhydrA MINE (BENADRYL) injection 25 mg 06-08 05:00: 00 Yes 25mg 25 mg, Intravenou s, Q6H, First dose on Mon06/08/24 at 0000, Until Discontinu ed, Routine [facility] methylpredn isolone sod succ (SOLU-MEDRO L) injection 80 mg 06-08 05:00: 00 06-08 13:32 :18 No 80mg 80 mg, Intravenou s, Q6H, First dose (after last modificati on) on Mon06/08/24 at 0000, Until Discontinu ed, 2 mL [facility] albuterol (PROVENTIL) 2.5 mg /3 mL (0.083 %) nebulizer solution 2.5 mg 06-08 02:11: 00 Yes 2.5mg 2.5 mg, Inhalation , Q6HPRN, 4 doses, Starting on Mon06/07/24 at 2111, Until Discontinu ed, Routine, Shortness of Breath, Wheezing, Bronchospa sm, Chest tightness [facility] hydrocortis one 1 % cream 06-08 01:45: 00 Yes Topical (Apply To Affected Areas), DAILY, First dose on Mon06/07/24 at 2044, Until Discontinu ed, Routine [facility] famotidine (PEPCID (PF)) injection 20 mg 06-08 01:45: 00 Yes 20mg 20 mg, Slow IV Push, Q12H, First dose (after last reorder) on Mon06/07/24 at 2045, Until Discontinu ed, Routine [facility] ondansetron (ZOFRAN (PF)) injection 4 mg 06-08 01:44: 36 Yes 4mg 4 mg, Slow IV Push, Q6HPRN, Starting on Mon06/07/24 at 4, Until Discontinu ed, WATSON, Nausea and Vomiting (N/V) [facility] morpHINE (4 mg/mL) injection 4 mg 06-08 01:40: 03 06-08 13:33 :26 No 4mg 4 mg, Slow IV Push, Q4HPRN, Starting on Mon06/07/24 at 2040, Until 06/08/24 at 0833, Routine, Pain (scale 7-10), Pain (scale 4-6) [facility] ondansetron 4 mg disintegrat ing tablet 06-08 00:00: 00 Yes [id number] 4mg Take 1 tablet by mouth every 8 (eight) hours as needed for Nausea and Vomiting (N/V). [facility] HYDROcodone -acetaminop hen 5-325 mg tablet 06-08 00:00: 00 06-16 04:59 :00 No [id number] 1{tbl} Take 1 tablet by mouth every 6 (six) hours as needed for Pain (scale 4-6) for up to 7 days. Indication s: acute pain [facility] diphenhydrA MINE 50 mg capsule 06-08 00:00: 00 06-14 00:00 :00 No [id number] 50mg Take 1 capsule by mouth every 4 (four) hours as needed for Allergies or Itching for up to 5 days. [facility] mg tablet 06-08 00:00: 00 06-13 04:59 :00 No [id number] 10mg Take 1 tablet by mouth every 6 (six) hours as needed for Alternate with [place] for pain scale 4-6 for up to 4 days. [facility] predniSONE 20 mg tablet 06-08 00:00: 00 06-12 04:59 :00 No [id number] 20mg Take 1 tablet by mouth in the morning for 3 days. [facility] diphenhydrA MINE (BENADRYL) injection 25 mg 06-07 23:30: 00 06-07 23:24 :00 No 25mg 25 mg, Slow IV Push, ONCE, 1 dose, On Mon06/07/24 at 1830, STAT [facility] morpHINE (4 mg/mL) injection 4 mg 06-07 22:45: 00 06-07 22:39 :00 No 4mg 4 mg, Slow IV Push, ONCE, 1 dose, On Mon06/07/24 at 1745, STAT [facility] ondansetron (ZOFRAN (PF)) injection 4 mg 06-07 22:45: 00 06-07 22:39 :00 No 4mg 4 mg, Slow IV Push, ONCE, 1 dose, On Mon06/07/24 at 1745, [facility] EPINEPHrine 1:1,000 (1 mg/mL) (ADRENALIN) injection 0.3 mg 06-07 22:00: 00 06-07 22:00 :00 No .3mg 0.3 mg, Subcutaneo us, ONCE, 1 dose, On Mon06/07/24 at 1700, [facility] famotidine (PEPCID (PF)) injection 20 mg 06-07 21:45: 00 06-07 21:51 :00 No 20mg 20 mg, Slow IV Push, ONCE, 1 dose, On Mon06/07/24 at 1645, [facility] diphenhydrA MINE (BENADRYL) injection 25 mg 06-07 21:45: 00 06-07 21:46 :00 No 25mg 25 mg, Slow IV Push, ONCE, 1 dose, On Mon06/07/24 at 1645, [place] [facility] dexamethaso ne sod phos PF injection 10 mg 06-07 21:45: 00 06-07 21:47 :00 No 10mg 10 mg, Slow IV Push, ONCE, 1 dose, On Mon06/07/24 at 1645, 1 mL [facility] Toradol (Ketorolac) Toradol (Ketorolac) 30 00:00: 00 No 60mg [facility] piperacilli n-tazobacta m (ZOSYN) 3.375 g in NaCl 0.9% (NS) 100 mL MINI-BAG 2020-10 18:15: 00 08-04 18:10 :00 No 3.375g 3.375 g, IV Piggyback, ONCE, 1 dose, On Mon08/04/21 at 1315, Administer over 30 Minutes, 100 mL
Reas on for Anti-Infec tive: Empiric Therapy for Suspected Infection< br>Empiric Therapy Site: Abdominal< br>Duratio n of therapy: 72 hours [facility] ondansetron (ZOFRAN (PF)) injection 4 mg 2020-10 17:30: 00 08-04 16:38 :00 No 4mg 4 mg, Slow IV Push, ONCE, 1 dose, On Mon08/04/21 at 1230, Routine [facility] iopamidol (ISOVUE 370-500 mL) injection 120 mL 2020-10 16:48: 00 08-04 16:48 :00 No [id number] 120mL 120 mL, Intravenou s, ONCE, 1 dose, On Mon08/04/21 at 1200, Routine [facility] NaCl 0.9% (NS) bolus infusion 1,000 mL 2020-10 16:30: 00 08-04 18:30 :00 No 1000mL at 999 mL/hr, 1,000 mL, IV Infusion, ONCE, 1 dose, On Mon08/04/21 at 1130, STAT [facility] morpHINE injection 4 mg 2020-10 16:26: 36 Yes 4mg 4 mg, Slow IV Push, Q4HPRN, Starting on Mon08/04/21 at 1126, Until Discontinu ed, Routine, Pain (scale 7-10) [facility] ondansetron 4 mg disintegrat ing tablet 2020-10 00:00: 00 06-08 00:00 :00 No [id number] 4mg Take 1 tablet by mouth every 8 (eight) hours as needed for Nausea and Vomiting (N/V). [facility] ibuprofen (IBU) tablet 600 mg 05-20 22:00: 00 05-21 09:59 :00 No 600mg 600 mg, Oral, ONCE, 1 dose, Catherine 05/20/21 at 1700, [facility] ibuprofen 600 mg tablet 05-20 00:00: 00 06-08 00:00 :00 No [id number] 600mg Take 1 tablet by mouth every 6 (six) hours as needed for Pain (scale 4-6). [facility] acetaminoph en-codeine 300-30 mg tablet 05-20 00:00: 00 06-08 00:00 :00 No [id number] 1{tbl} Take 1 tablet by mouth every 4 (four) hours as needed for Pain (scale 4-6). Indication s: acute pain [facility] acetaminoph en (TYLENOL) tablet 650 mg 01-21 22:30: 00 01-21 21:29 :00 No 650mg 650 mg, Oral, ONCE, 1 dose, Catherine 01/21/21 at 1730, [facility] metoclopram rene HCl (REGLAN) injection 10 mg 01-21 21:45: 00 01-21 20:53 :00 No 10mg 10 mg, Slow IV Push, ONCE, 1 dose, Catherine 01/21/21 at 1645, [facility] ketorolac (TORADOL) injection 30 mg 01-21 20:45: 00 01-21 20:54 :00 No 30mg 30 mg, Slow IV Push, ONCE, 1 dose, Catherine 01/21/21 at 1545, [facility]
Fa culty member approving Restricted medication : SANDEE GUILLEN [facility] ondansetron (ZOFRAN (PF)) injection 4 mg 01-21 20:30: 00 01-21 19:40 :00 No 4mg 4 mg, Slow IV Push, ONCE, 1 dose, Catherine 01/21/21 at 1530, [facility] NaCl 0.9% (NS) bolus infusion 1,000 mL 01-21 19:30: 00 01-21 21:15 :00 No 1000mL at 999 mL/hr, 1,000 mL, IV Infusion, ONCE, 1 dose, Catherine 01/21/21 at 1430, [facility] ondansetron (ZOFRAN ODT) 4 mg disintegrat ing tablet 01-21 00:00: 00 08-04 00:00 :00 No [id number] 4mg Take 1 tablet by mouth every 8 (eight) hours as needed for Nausea and Vomiting (N/V). [facility] iohexol (OMNIPAQUE 350 BULK-100 mL) injection 100 mL 2019-10 15:00: 00 10-20 14:52 :00 No 100mL 100 mL, Intravenou s, ONCE, 1 dose, 10/20/20 at 0915, Routine [facility] ondansetron (ZOFRAN (PF)) injection 4 mg 2019-10 15:00: 00 10-20 14:01 :00 No 4mg 4 mg, Slow IV Push, ONCE, 1 dose, 10/20/20 at 0900, [facility] morpHINE injection 4 mg 2019-10 15:00: 00 10-20 14:03 :00 No 4mg 4 mg, Slow IV Push, ONCE, 1 dose, 10/20/20 at 0900, STAT [facility] diazePAM 2 mg tablet 2019-10 00:00: 00 Yes [id number] 2mg Take 1 tablet by mouth 3 (three) times daily as needed for Muscle Spasms. [facility] ibuprofen 800 mg tablet 2019-10 00:00: 00 06-08 00:00 :00 No [id number] 800mg Take 1 tablet by mouth every 8 (eight) hours. [facility] ibuprofen (IBU) tablet 600 mg 07-15 22:45: 00 07-15 21:58 :00 No 600mg 600 mg, Oral, ONCE, 1 dose, 07/15/20 at 1745, [place] [facility] dicyclomine (BENTYL) 10 mg capsule 07-15 00:00: 00 06-08 00:00 :00 No [id number] 10mg Take 1 capsule by mouth 4 (four) times daily as needed for Abdominal pain. [facility] ACETAMINOPH EN EXTRA STRENGTH ORAL 01-16 18:34: 08 01-16 00:00 :00 No Take by mouth. [facility] traMADol 50 mg tablet 01-16 00:00: 00 06-08 00:00 :00 No [id number] 50mg Take 1 tablet by mouth every 8 (eight) hours as needed (moderate pain). [facility] OMEPRAZOLE ORAL 01-05 14:17: 39 Yes 40mg Take 40 mg by mouth. [facility] ACETAMINOPH EN EXTRA STRENGTH ORAL 01-05 14:17: 39 Yes Take by mouth. [facility] BUPROPION HCL ORAL 01-05 14:17: 39 Yes Take by mouth. [facility] OMEPRAZOLE ORAL 01-05 09:17: 39 Yes 40mg Take 40 mg by mouth. [facility] HYDROcodone -acetaminop hen 5-325 mg tablet 01-05 00:00: 00 01-16 00:00 :00 No [id number] 1{tbl} Take 1 tablet by mouth every 6 (six) hours as needed for Pain (scale 4-6) or Pain (scale 7-10). [facility] meperidine (DEMEROL) injection 50 mg 01-02 18:45: 00 01-02 18:43 :00 No 50mg 50 mg, Intravenou s, ONCE, 1 dose, Mon01/03/20 at 1345, [place], PACU
En ter indication for use: [facility]
member services representative approving Restricted medication : SONDRA CHASE [facility] morpHINE injection 2 mg 01-02 18:42: 44 Yes 2mg 2 mg, Slow IV Push, Q5MIN PRN, 5 doses, Starting Mon01/03/20 at 1342, Until Discontinu ed, Routine, Pain (scale 4-6), PACU [facility] ondansetron (ZOFRAN (PF)) injection 4 mg 01-02 18:42: 44 Yes 4mg 4 mg, Slow IV Push, PRN, 1 dose, Starting Mon01/03/20 at 1342, Until Discontinu ed, Routine, Nausea and Vomiting (N/V), PACU [facility] lactated ringers IV infusion 1,000 mL 01-02 18:30: 00 Yes 1000mL at 75 mL/hr, 1,000 mL, IV Infusion, CONTINUOUS , Starting Mon01/03/20 at 1330, Until Discontinu ed, Routine, PACU [facility] HYDROcodone -acetaminop hen (NORCO 5) 5-325 mg tablet 1 tablet 01-02 18:30: 00 01-02 19:07 :00 No 1{tbl} 1 tablet, Oral, ONCE, 1 dose, Mon01/03/20 at 1330, Routine, PACU [facility] HYDROcodone -acetaminop hen (NORCO) 10-325 mg tablet 1 tablet 01-02 18:18: 14 Yes 1{tbl} 1 tablet, Oral, PRN, 1 dose, Starting Mon01/03/20 at 1318, Until Discontinu ed, Routine, Pain (scale 7-10), [facility] Recovery [facility] ibuprofen (IBU) tablet 800 mg 01-02 18:18: 14 Yes 800mg 800 mg, Oral, PRN, 1 dose, Starting Mon01/03/20 at 1318, Until Discontinu ed, Routine, Pain (scale 1-3), [facility] Recovery [facility] morpHINE injection 2 mg 01-02 18:17: 54 Yes 2mg 2 mg, Slow IV Push, Q5MIN PRN, 5 doses, Starting Mon01/03/20 at 1317, Until Discontinu ed, Routine, Pain (scale 4-6), PACU [facility] ondansetron (ZOFRAN (PF)) injection 4 mg 01-02 18:17: 54 Yes 4mg 4 mg, Slow IV Push, PRN, 1 dose, Starting Mon01/03/20 at 1317, Until Discontinu ed, Routine, Nausea and Vomiting (N/V), PACU [facility] [id number] IV infusion 1,000 mL 01-02 18:15: 00 Yes 1000mL at 125 mL/hr, IV Infusion, CONTINUOUS , Starting Mon01/03/20 at 1315, Until Discontinu ed, Routine [facility] ketorolac (TORADOL) injection 30 mg 01-02 18:15: 00 01-02 18:38 :00 No 30mg 30 mg, Intramuscu lar, ONCE, 1 dose, Mon01/03/20 at 1330, Routine
member services representative approving Restricted medication : SONDRA CHAVIRA [facility] HYDROcodone -acetaminop hen (NORCO 5) 5-325 mg tablet 2 tablet 01-02 18:10: 00 Yes 2{tbl} 2 tablet, Oral, Q6HPRN, Starting Mon01/03/20 at 1310, Until Discontinu ed, Routine, Pain (scale 7-10) [facility] OMEPRAZOLE ORAL 01-02 17:55: 40 Yes 40mg Take 40 mg by mouth. [facility] ACETAMINOPH EN EXTRA STRENGTH ORAL 01-02 17:55: 40 Yes Take by mouth. [facility] BUPROPION HCL ORAL 01-02 17:55: 40 Yes Take by mouth. [facility] bupivacaine -epinephrin e-pf (SENSORCAIN E W/EPINEPHRI NE) 0.5 %-1:200,000 injection 01-02 17:05: 00 Yes PRN, Starting Mon01/03/20 at 1205, Until Discontinu ed, Routine, Intra-op [facility] sodium chloride 0.9 % irrigation solution 01-02 17:05: 00 Yes PRN, Starting Mon01/03/20 at 1205, Until Discontinu ed, Intra-op [facility] metroNIDAZO LE (FLAGYL I.V.) Piggyback 2,000 mg 01-02 16:02: 40 Yes 2000mg 2,000 mg, IV Piggyback, O.R. HOLDING ONCE, 1 dose, Starting Mon01/03/20 at 1102, Until Discontinu ed, 400 mL, Intra-op<b r>Reason for Anti-Infec tive: Surgical Prophylaxi s
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
Duration of therapy: within 24 hours of surgery [facility] lactated ringers IV infusion 1,000 mL 01-02 14:00: 00 01-02 14:58 :00 No 1000mL at 20 mL/hr, 1,000 mL, IV Infusion, ONCE, 1 dose, Mon01/03/20 at 0900, Routine, DSU Pre-op [facility] HYDROcodone -acetaminop hen 5-325 mg tablet 01-02 00:00: 00 01-16 00:00 :00 No [id number] 1{tbl} Take 1 tablet by mouth every 6 (six) hours as needed for Pain (scale 4-6) or Pain (scale 7-10). [facility] ibuprofen 600 mg tablet 12-13 00:00: 00 06-08 00:00 :00 No [id number] 600mg Take 1 tablet by mouth every 6 (six) hours as needed (pain). Take one tablet every 6 hours for 5 days then every 6 hours as needed. [facility] ceFAZolin in dextrose (iso-os) (ANCEF) 2 gram/100 mL Piggyback 2 g 12-10 06:00: 12-10 17:59 :00 No 2g [facility] traMADol 50 mg tablet 12-01 00:00: 00 06-08 00:00 :00 No [id number] 50mg Take 1 tablet by mouth every 6 (six) hours as needed (pain). [facility] BUPROPION HCL ORAL 11-29 23:53: 52 Yes Take by mouth. [facility] ACETAMINOPH EN EXTRA STRENGTH ORAL 11-29 23:03: 45 Yes Take by mouth. [facility] gabapentin 300 mg capsule 11-29 00:00: 01-16 00:00 :00 No [id number] 300mg Take 1 capsule by mouth 3 (three) times daily. [facility] acetaminoph en (TYLENOL EXTRA STRENGTH) 500 mg tablet 11-29 00:00: 01-16 00:00 :00 No [id number] 1000mg Take 2 tablets by mouth every 6 (six) hours. [facility] celecoxib (CELEBREX) 200 mg capsule 11-29 00:00: 01-16 00:00 :00 No [id number] 200mg Take 1 capsule by mouth 2 (two) times daily with meals. [facility] traMADol 50 mg tablet 11-19 00:00: 11-29 00:00 :00 No [id number] 50mg Take 1 tablet by mouth every 8 (eight) hours as needed (pain). [facility] cefTRIAXone (ROCEPHIN) injection 250 mg 11-16 01:00: 11-16 00:05 :00 No 250mg 250 mg, Intramuscu lar, ONCE, 1 dose, Mon11/15/19 at 1900, [place]
Re ason for Anti-Infec tive: Empiric Therapy for Suspected Infection< br>Empiric Therapy Site: Pelvic
Duration of therapy: 72 hours [facility] medroxyPROG ESTERone (DEPO-PROVE RA) injection 150 mg 11-16 00:30: 00 11-15 23:00 :00 No 150mg 150 mg, Intramuscu lar, ONCE, 1 dose, Mon11/15/19 at 1830, Routine [facility] ketorolac (TORADOL) injection 60 mg 11-16 00:30: 00 11-15 23:15 :00 No 60mg 60 mg, Intramuscu lar, ONCE, 1 dose, Mon11/15/19 at 1830, Routine
member services representative approving Restricted medication : SONDRA CHAVIRA [facility] plecanatide (TRULANCE) 3 mg Tab 11-15 23:52: 25 11-15 00:00 :00 No Take by mouth. [facility] doxycycline 100 mg tablet 11-15 00:00: 00 11-29 00:00 :00 No [id number] 100mg Take 1 tablet by mouth 2 (two) times daily. [facility] Kenalog (Triamcinol one) Kenalog (Triamcinol one) 2018-10 00:00: 00 No 40mg [facility] medroxyPROG ESTERone (DEPO-PROVE RA) injection 150 mg 06-07 16:30: 00 06-07 15:23 :00 No 150mg [facility] plecanatide (TRULANCE) 3 mg Tab 06-07 15:15: 28 Yes Take by mouth. [facility] linaCLOtide (LINZESS) 72 mcg Cap 05-11 00:00: 00 06-08 00:00 :00 No [facility] metroNIDAZO LE (FLAGYL) 500 mg tablet 04-17 00:00: 00 11-15 00:00 :00 No [id number] 500mg Take 1 tablet by mouth 2 (two) times daily. [facility] OMEPRAZOLE ORAL 04-10 15:31: 49 Yes 40mg Take 40 mg by mouth. [facility] ACETAMINOPH EN EXTRA STRENGTH ORAL 2018-04-10 15:31: 49 Yes Take by mouth. [facility] No known medications No Un olayinka ity [facility] Ondansetron HCl 4 MG Ondansetron HCl 4 MG No 1{table t_as_ne eded} QD Ondansetro n HCl 4 MG Omeprazole 40 MG Omeprazole 40 MG No QD Omeprazole 40 MG predniSONE 20 MG predniSONE 20 MG No 2{table t} QD predniSONE 20 MG Mesalamine 1.2 GM Mesalamine 1.2 GM No 2{table ts_with _a_meal } QD Mesalamine 1.2 GM Emgality 120 MG/ML Emgality 120 MG/ML No Emgality 120 MG/ML Hyoscyamine Sulfate 0.125 MG Hyoscyamine Sulfate 0.125 MG No 1{table t_as_ne eded} TID Hyoscyamin e Sulfate 0.125 MG Vital Signs Vital Name Observation Time Observation Value Comments S ource height 2024-06-21 07:50:00 63 [in_i] Commo n [facility] weight 2024-06-21 07:50:00 170 [lb_av] Comm on [facility] bmi 2024-06-21 07:50:00 30.11 kg/m2 Comm on [facility] blood pressure systolic 2024-06-21 07:50:00 124 mm[Hg] [facility] blood pressure diastolic 2024-06-21 07:50:00 76 mm[Hg] [facility] height 2024-06-18 11:00:00 63 [in_i] Commo n [facility] weight 2024-06-18 11:00:00 181 [lb_av] Comm on [facility] temperature 2024-06-18 11:00:00 97.6 [degF] Com mon [facility] bmi 2024-06-18 11:00:00 32.06 kg/m2 Comm on [facility] oximetry 2024-06-18 11:00:00 98 % Commo n [facility] respiratory rate 2024-06-18 11:00:00 18 /min [facility] blood pressure systolic 2024-06-18 11:00:00 127 mm[Hg] [facility] blood pressure diastolic 2024-06-18 11:00:00 81 mm[Hg] [facility] Systolic blood pressure 2024-06-14 16:30:00 121 mm[Hg] [facility] Diastolic blood pressure 2024-06-14 16:30:00 71 mm[Hg] [facility] Heart rate 2024-06-14 16:30:00 61 [facility] Body temperature 2024-06-14 16:30:00 36.22 Liya [facility] Respiratory rate 2024-06-14 16:30:00 18 /min [facility] Oxygen saturation in Arterial blood by Pulse oximetry 2024-06-14 16:30:00 94 /min [facility] Body weight 2024-06-14 08:07:00 79.969 kg [facility] BMI 2024-06-14 08:07:00 31.23 kg/m2 [facility] Body height 2024-06-13 18:41:00 160 cm [facility] Heart rate 2024-06-08 22:00:00 75 /min [facility] O[facility] saturation in Arterial blood by Pulse oximetry 2024-06-08 22:00:00 100 /min [facility] Systolic blood pressure 2024-06-08 21:00:00 114 mm[Hg] [facility] Diastolic blood pressure 2024-06-08 21:00:00 77 mm[Hg] [facility] Respiratory rate 2024-06-08 21:00:00 17 /min [facility] Body temperature 2024-06-08 20:00:00 36.28 Liya [facility] Body weight 2024-06-08 09:00:00 83.961 kg [facility] BMI 2024-06-08 09:00:00 32.79 kg/m2 [facility] Body height 2024-06-08 01:34:00 160 cm [facility] height 2024-01-23 08:00:00 63 [in_i] Commo n [facility] weight 2024-01-23 08:00:00 170 [lb_av] Comm on [facility] bmi 2024-01-23 08:00:00 30.11 kg/m2 Comm on [facility] blood pressure systolic 2024-01-23 08:00:00 124 mm[Hg] [facility] pressure diastolic 2024-01-23 08:00:00 76 mm[Hg] Common [facility] height 2023-10-24 10:40:00 63 [in_i] Commo n [facility] weight 2023-10-24 10:40:00 184 [lb_av] Comm on [facility] temperature 2023-10-24 10:40:00 101 [degF] Comm on [facility] bmi 2023-10-24 10:40:00 32.59 kg/m2 Comm on [facility] blood pressure systolic 2023-10-24 10:40:00 128 mm[Hg] [facility] blood pressure diastolic 2023-10-24 10:40:00 78 mm[Hg] [facility] height 2023-07-27 15:50:00 63 [in_i] Commo n [facility] weight 2023-07-27 15:50:00 183.4 [lb_av] Co mmon [facility] temperature 2023-07-27 15:50:00 98.2 [degF] Com mon [facility] bmi 2023-07-27 15:50:00 32.48 kg/m2 Comm on [facility] oximetry 2023-07-27 15:50:00 98 % Commo n [facility] respiratory rate 2023-07-27 15:50:00 18 /min [facility] blood pressure systolic 2023-07-27 15:50:00 115 mm[Hg] [facility] blood pressure diastolic 2023-07-27 15:50:00 64 mm[Hg] [facility] height 2023-06-29 09:20:00 63 [in_i] Commo n [facility] height 2023-04-07 08:10:00 63 [in_i] Commo n [facility] weight 2023-04-07 08:10:00 155 [lb_av] Comm on [facility] bmi 2023-04-07 08:10:00 27.45 kg/m2 Comm on [facility] blood pressure systolic 2023-04-07 08:10:00 123 mm[Hg] [facility] blood pressure diastolic 2023-04-07 08:10:00 72 mm[Hg] [facility] height 2022-12-23 16:10:00 63 [in_i] Commo n [facility] weight 2022-12-23 16:10:00 165 [lb_av] Comm on [facility] bmi 2022-12-23 16:10:00 29.23 kg/m2 Comm on [facility] height 2022-12-15 08:40:00 63 [in_i] Commo n [facility] weight 2022-12-15 08:40:00 165 [lb_av] Comm on [facility] temperature 2022-12-15 08:40:00 98 [degF] Comm on [facility] bmi 2022-12-15 08:40:00 29.23 kg/m2 Comm on [facility] blood pressure systolic 2022-12-15 08:40:00 128 mm[Hg] [facility] blood pressure diastolic 2022-12-15 08:40:00 74 mm[Hg] [facility] height 2022-10-12 16:00:00 63 [in_i] Commo n [facility] weight 2022-10-12 16:00:00 155 [lb_av] Comm on [facility] temperature 2022-10-12 16:00:00 98 [degF] Comm on [facility] bmi 2022-10-12 16:00:00 27.45 kg/m2 Comm on [facility] blood pressure systolic 2022-10-12 16:00:00 132 mm[Hg] [facility] blood pressure diastolic 2022-10-12 16:00:00 76 mm[Hg] [facility] height 2022-08-24 10:50:00 63 [in_i] Commo n [facility] weight 2022-08-24 10:50:00 160.4 [lb_av] Co mmon [facility] temperature 2022-08-24 10:50:00 97.4 [degF] Com mon [facility] bmi 2022-08-24 10:50:00 28.41 kg/m2 Comm on [facility] oximetry 2022-08-24 10:50:00 98 % Commo n [facility] respiratory rate 2022-08-24 10:50:00 18 /min [facility] blood pressure systolic 2022-08-24 10:50:00 134 mm[Hg] [facility] blood pressure diastolic 2022-08-24 10:50:00 67 mm[Hg] [facility] height 2022-08-16 16:10:00 63 [in_i] Commo n [facility] weight 2022-08-16 16:10:00 161.7 [lb_av] Co mmon [facility] temperature 2022-08-16 16:10:00 98.0 [degF] Com mon [facility] bmi 2022-08-16 16:10:00 28.64 kg/m2 Comm on [facility] oximetry 2022-08-16 16:10:00 100 % Commo n [facility] respiratory rate 2022-08-16 16:10:00 18 /min [facility] blood pressure systolic 2022-08-16 16:10:00 137 mm[Hg] [facility] blood pressure diastolic 2022-08-16 16:10:00 85 mm[Hg] [facility] height 2022-07-26 14:00:00 63 [in_i] Commo n [facility] weight 2022-07-26 14:00:00 159 [lb_av] Comm on [facility] temperature 2022-07-26 14:00:00 97.4 [degF] Com [facility] bmi 2022-07-26 14:00:00 28.16 kg/m2 Comm on [facility] oximetry 2022-07-26 14:00:00 99 % Commo n [facility] respiratory rate 2022-07-26 14:00:00 18 /min [facility] blood pressure systolic 2022-07-26 14:00:00 132 mm[Hg] [facility] blood pressure diastolic 2022-07-26 14:00:00 76 mm[Hg] [facility] height 2022-07-08 14:00:00 63 [in_i] Commo n [facility] weight 2022-07-08 14:00:00 161.1 [lb_av] Co mmon [facility] temperature 2022-07-08 14:00:00 98.2 [degF] Com [facility] bmi 2022-07-08 14:00:00 28.53 kg/m2 Comm on [facility] oximetry 2022-07-08 14:00:00 96 % Commo n [facility] respiratory rate 2022-07-08 14:00:00 18 /min [facility] blood pressure systolic 2022-07-08 14:00:00 131 mm[Hg] [facility] blood pressure diastolic 2022-07-08 14:00:00 61 mm[Hg] [facility] height 2022-05-20 08:00:00 63 [in_i] Commo n [facility] weight 2022-05-20 08:00:00 160 [lb_av] Comm on [facility] temperature 2022-05-20 08:00:00 98 [degF] Comm on [facility] bmi 2022-05-20 08:00:00 28.34 kg/m2 Comm on [facility] blood pressure systolic 2022-05-20 08:00:00 120 mm[Hg] [facility] blood pressure diastolic 2022-05-20 08:00:00 72 mm[Hg] [facility] height 2022-04-28 14:30:00 63 [in_i] Commo n [facility] weight 2022-04-28 14:30:00 157.8 [lb_av] Co mmon [facility] temperature 2022-04-28 14:30:00 98.0 [degF] Com mon [facility] bmi 2022-04-28 14:30:00 27.95 kg/m2 Comm on [facility] oximetry 2022-04-28 14:30:00 98 % Commo n [facility] respiratory rate 2022-04-28 14:30:00 18 /min [facility] blood pressure systolic 2022-04-28 14:30:00 126 mm[Hg] [facility] blood pressure diastolic 2022-04-28 14:30:00 79 mm[Hg] [facility] height 2022-03-30 14:00:00 63 [in_i] Commo n [facility] weight 2022-03-30 14:00:00 156.4 [lb_av] Co mmon [facility] temperature 2022-03-30 14:00:00 98.6 [degF] Com mon [facility] bmi 2022-03-30 14:00:00 27.7 kg/m2 Commo n [facility] oximetry 2022-03-30 14:00:00 98 % Commo n [facility] respiratory rate 2022-03-30 14:00:00 16 /min [facility] blood pressure systolic 2022-03-30 14:00:00 120 mm[Hg] [facility] blood pressure diastolic 2022-03-30 14:00:00 84 mm[Hg] [facility] height 2022-02-24 07:50:00 63 [in_i] Commo n [facility] weight 2022-02-24 07:50:00 164 [lb_av] Comm on [facility] temperature 2022-02-24 07:50:00 98 [degF] Comm on [facility] bmi 2022-02-24 07:50:00 29.05 kg/m2 Comm on [facility] blood pressure systolic 2022-02-24 07:50:00 121 mm[Hg] [facility] blood pressure diastolic 2022-02-24 07:50:00 75 mm[Hg] Common [facility] height 2022-01-19 11:00:00 63 [in_i] Commo n [facility] weight 2022-01-19 11:00:00 165.8 [lb_av] Co on [facility] temperature 2022-01-19 11:00:00 97.5 [degF] Com [facility] bmi 2022-01-19 11:00:00 29.37 kg/m2 Comm on [facility] oximetry 2022-01-19 11:00:00 100 % Commo n [facility] respiratory rate 2022-01-19 11:00:00 17 /min Common [facility] blood pressure systolic 2022-01-19 11:00:00 111 mm[Hg] Common [facility] blood pressure diastolic 2022-01-19 11:00:00 74 mm[Hg] Common [facility] height 2021-12-22 15:50:00 63 [in_i] Commo n [facility] weight 2021-12-22 15:50:00 160 [lb_av] Comm on [facility] temperature 2021-12-22 15:50:00 98 [degF] Comm on [facility] bmi 2021-12-22 15:50:00 28.34 kg/m2 Comm on [facility] height 2021-09-22 15:40:00 63 [in_i] Commo n [facility] weight 2021-09-22 15:40:00 160 [lb_av] Comm on [facility] temperature 2021-09-22 15:40:00 97.4 [degF] Com mon [facility] bmi 2021-09-22 15:40:00 28.34 kg/m2 Comm on [facility] blood pressure systolic 2021-09-22 15:40:00 125 mm[Hg] [facility] blood pressure diastolic 2021-09-22 15:40:00 75 mm[Hg] Common [facility] height 2021-08-05 08:20:00 63 [in_i] Commo n [facility] weight 2021-08-05 08:20:00 174 [lb_av] Comm on [facility] bmi 2021-08-05 08:20:00 30.82 kg/m2 Comm on [facility] Systolic blood pressure 2021-08-04 19:00:00 125 mm[Hg] [facility] Diastolic blood pressure 2021-08-04 19:00:00 85 mm[Hg] [facility] Heart rate 2021-08-04 19:00:00 69 /min [facility] Respiratory rate 2021-08-04 19:00:00 16 /min [facility] Oxygen saturation in Arterial blood by Pulse oximetry 2021-08-04 19:00:00 97 /min [facility] Body temperature 2021-08-04 17:00:00 36.72 Liya [facility] Body height 2021-08-04 16:09:00 160 cm [facility] Body weight 2021-08-04 16:09:00 72.576 kg [facility] BMI 2021-08-04 16:09:00 28.34 kg/m2 [facility] Systolic blood pressure 2021-05-20 17:04:00 134 mm[Hg] [facility] Diastolic blood pressure 2021-05-20 17:04:00 87 mm[Hg] [facility] Heart rate 2021-05-20 17:04:00 101 /min [facility] Body temperature 2021-05-20 17:04:00 37.11 Liya [facility] Respiratory rate 2021-05-20 17:04:00 18 /min [facility] Body weight 2021-05-20 17:04:00 81.647 kg [facility] BMI 2021-05-20 17:04:00 31.89 kg/m2 [facility] Oxygen saturation in Arterial blood by Pulse oximetry 2021-05-20 17:04:00 98 /min [facility] Systolic blood pressure 2021-01-21 21:10:00 124 mm[Hg] [facility] Diastolic blood pressure 2021-01-21 21:10:00 63 mm[Hg] [facility] Heart rate 2021-01-21 21:10:00 98 /min [facility] Body temperature 2021-01-21 21:10:00 37.78 Liya [facility] Respiratory rate 2021-01-21 21:10:00 20 /min [facility] Oxygen saturation in Arterial blood by Pulse oximetry 2021-01-21 21:10:00 100 /min [facility] Body weight 2021-01-21 18:05:00 81.647 kg [facility] BMI 2021-01-21 18:05:00 31.89 kg/m2 [facility] Systolic blood pressure 2020-10-20 15:50:00 123 mm[Hg] [facility] Diastolic blood pressure 2020-10-20 15:50:00 81 mm[Hg] [facility] Heart rate 2020-10-20 15:50:00 88 /min [facility] Respiratory rate 2020-10-20 15:50:00 18 /min [facility] Oxygen saturation in Arterial blood by Pulse oximetry 2020-10-20 15:50:00 97 /min [facility] Body temperature 2020-10-20 13:37:00 36.22 Liya [facility] Body height 2020-10-20 13:37:00 160 cm [facility] Body weight 2020-10-20 13:37:00 86.183 kg [facility] BMI 2020-10-20 13:37:00 33.66 kg/m2 [facility] Systolic blood pressure 2020-07-15 23:05:00 148 mm[Hg] [facility] Diastolic blood pressure 2020-07-15 23:05:00 100 mm[Hg] [facility] Heart rate 2020-07-15 23:05:00 88 /[facility] Body temperature 2020-07-15 23:05:00 37.17 Liya [facility] Respiratory rate 2020-07-15 23:05:00 18 /min [facility] Oxygen saturation in Arterial blood by Pulse oximetry 2020-07-15 23:05:00 99 /min [facility] Body weight 2020-07-15 21:28:00 77.111 kg [facility] BMI 2020-07-15 21:28:00 30.11 kg/m2 [facility] Systolic blood pressure 2020-01-03 19:26:00 121 mm[Hg] [facility] Diastolic blood pressure 2020-01-03 19:26:00 74 mm[Hg] [facility] Heart rate 2020-01-03 19:26:00 85 /min [facility] Respiratory rate 2020-01-03 19:26:00 16 /min [facility] Oxygen saturation in Arterial blood by Pulse oximetry 2020-01-03 19:26:00 98 /min [facility] Body temperature 2020-01-03 14:01:00 37.22 Liya [facility] Body height 2020-01-03 14:01:00 160 cm [facility] Body weight 2020-01-03 14:01:00 77.111 kg [facility] BMI 2020-01-03 14:01:00 30.11 kg/m2 [facility] Systolic blood pressure 2019-11-29 23:03:00 127 mm[Hg] [facility] Diastolic blood pressure 2019-11-29 23:03:00 96 mm[Hg] [facility] Heart rate 2019-11-29 23:03:00 86 /min [facility] Body temperature 2019-11-29 23:03:00 36.83 Liya [facility] Respiratory rate 2019-11-29 23:03:00 18 /min [facility] Body height 2019-11-29 23:03:00 160 cm [facility] Body weight 2019-11-29 23:03:00 76.658 kg [facility] BMI 2019-11-29 23:03:00 29.94 kg/m2 [facility] Systolic blood pressure 2019-11-15 22:16:00 129 mm[Hg] [facility] Diastolic blood pressure 2019-11-15 22:16:00 86 mm[Hg] [facility] Heart rate 2019-11-15 22:16:00 82 /min [facility] Body temperature 2019-11-15 22:16:00 36.78 Liya [facility] Respiratory rate 2019-11-15 22:16:00 18 /min [facility] Body height 2019-11-15 22:16:00 160.7 cm [facility] Body weight 2019-11-15 22:16:00 77.111 kg [facility] BMI 2019-11-15 22:16:00 29.88 kg/m2 [facility] Systolic blood pressure 2019-06-07 15:13:00 110 mm[Hg] [facility] Diastolic blood pressure 2019-06-07 15:13:00 72 mm[Hg] [facility] Heart rate 2019-06-07 15:13:00 77 /min [facility] Body temperature 2019-06-07 15:13:00 36.83 Liya [facility] Respiratory rate 2019-06-07 15:13:00 20 /min [facility] Body height 2019-06-07 15:13:00 160 cm [facility] Body weight 2019-06-07 15:13:00 67.495 kg [facility] BMI 2019-06-07 15:13:00 26.36 kg/m2 [facility] Procedures Procedure Date / Time Performed Performing Clinician Source BASIC METABOLIC PANEL (NA, K, CL, CO2, GLUCOSE, BUN, CREATININE, CA) 2024-06-14 09:48:00 Feng [facility] CBC WITH DIFF 2024-06-14 09:48:00 george [facility] BASIC METABOLIC PANEL (NA, K, CL, CO2, GLUCOSE, BUN, CREATININE, CA) 2024-06-08 09:42:00 Feng [facility] CBC WITH DIFF 2024-06-08 09:42:00 [facility] COMP. METABOLIC PANEL (58429) 2024-06-08 00:15:00 Aris Hill [facility] CBC WITH DIFF 2024-06-07 23:22:00 [facility] CRITICAL CARE 2024-06-07 21:36:00 [facility] ABDOMEN PELVIS W CONTRAST 2021-08-04 16:53:22 Armond Moore [facility] LIPASE 2021-08-04 16:37:00 [facility] COMP. METABOLIC PANEL (96555) 2021-08-04 16:37:00 Armond Moore [facility] CBC WITH DIFF 2021-08-04 16:37:00 Armond [facility] URINALYSIS 2021-08-04 16:37:00 [facility] CONSENT/REFUSAL FOR DIAGNOSIS AND TREATMENT 2021-08-04 15:58:11 Doctor Unassigned, [place] [facility] CT KNEE RIGHT WO CONTRAST 2021-05-20 19:15:50 Blaine Perez [facility] XR KNEE 3 VW RIGHT 2021-05-20 17:34:16 Erika Guillen [facility] NOTICE OF PRIVACY PRACTICES 2021-05-20 17:00:21 Doctor Unassigned, [place] [facility] CONSENT/REFUSAL FOR DIAGNOSIS AND TREATMENT 2021-05-20 17:00:06 Doctor Unassigned, [place] [facility] URINALYSIS 2021-01-21 20:55:00 Sandee Guillen [facility] BASIC METABOLIC PANEL (NA, K, CL, CO2, GLUCOSE, BUN, CREATININE, CA) 2021-01-21 19:37:00 Sandee Guillen [facility] CBC WITH DIFF 2021-01-21 19:37:00 Sandee Guillen [facility] XR CHEST 1 VW 2021-01-21 18:33:12 Sandee Guillen [facility] COVID-19 (ID NOW RAPID TESTING) 2021-01-21 18:09:00 Sadnee Guillen [facility] CONSENT/REFUSAL FOR DIAGNOSIS AND TREATMENT 2021-01-21 17:52:09 Doctor Unassigned, [place] [facility] CT ANGIOGRAM NECK 2020-10-20 14:59:45 Aris Hill [facility] POCT TEST 2020-10-20 14:00:00 Jarrett Hill [facility] HEPATIC FUNCTION PANEL (75203) (ALB,T.PRO,BILI T,BU/BC,ALT,AST,ALK PHOS) 2020-10-20 13:57:00 Aris Hill [facility] BASIC METABOLIC PANEL (NA, K, CL, CO2, GLUCOSE, BUN, CREATININE, CA) 2020-10-20 13:57:00 Aris Hill [facility] CBC WITH DIFF 2020-10-20 13:57:00 [facility] PROTHROMBIN TIME / INR 2020-10-20 13:57:00 Favio Hill [facility] ACTIVATED PARTIAL THRMPLAS LATOSHA 2020-10-20 13:57:00 Aris Hill [facility] NOTICE OF PRIVACY PRACTICES 2020-10-20 13:42:58 Doctor Unassigned, [place] [facility] CONSENT/REFUSAL FOR DIAGNOSIS AND TREATMENT 2020-10-20 13:34:05 Doctor Unassigned, [place] [facility] RAPID STREP SCREEN FOR GROUP A 2020-07-15 21:57:00 Clarence Weiss [facility] NOTICE OF PRIVACY PRACTICES 2020-07-15 21:13:13 Doctor Unassigned, [place] [facility] CONSENT/REFUSAL FOR DIAGNOSIS AND TREATMENT 2020-07-15 21:12:59 Doctor Unassigned, [place] [facility] LAPAROSCOPIC TOTAL ABDOMINAL HYSTERECTOMY 2020-01-03 14:57:00 Sondra Chavira [facility] CYSTOSCOPY 2020-01-03 14:57:00 Sondra Chavira [facility] SALPINGECTOMY 2020-01-03 14:57:00 Sondra Chavira [facility] BASIC METABOLIC PANEL (NA, K, CL, CO2, GLUCOSE, BUN, CREATININE, CA) 2020-01-03 14:28:00 Carmen Kennedy [facility] CBC WITH DIFFERENTIAL 2020-01-03 14:28:00 Vilma Kennedy [facility] HB ABO GROUPING 2020-01-03 14:24:00 Carmen Kennedy [facility] POCT TEST 2020-01-03 14:00:00 Keith Oliva [facility] DAY SURGERY - ADC 2020-01-03 05:01:00 Doctor Dulce ssigned, [place] [facility] ASSIGNMENT OF BENEFITS 2019-11-15 23:27:34 Docto r Unassigned, [place] [facility] POCT TEST 2019-11-15 00:00:00 Valerie Chavira [facility] Encounters Start Date/Time End Date/Time Encounter Type Admission Type Attending [facility] Care Facility Care Department Encounter ID Source 2024-06-20 13:39:00 Outpatient Smart, Benny STLMLC STLMLC [id number] [facility] 2024-06-17 08:43:00 Outpatient Smart, Benny STLMLC STLMLC [id number] [facility] 2024-01-22 09:10:00 Outpatient Smart, Benny STLMLC STLMLC [id number] [facility] 2024-01-19 13:47:00 Outpatient Smart, Benny STLMLC STLMLC [id number] [facility] 2023-10-24 10:09:00 Outpatient Smart, Benny STLC STLMLC [id number] [facility] 2023-04-05 10:16:00 Outpatient Smart, Benny STLMLC STLMLC [id number] [facility] 2022-12-15 08:16:00 Outpatient Smart, Benny STLMLC STLMLC [id number] [facility] 2022-10-11 10:39:01 Outpatient Smart, Benny STLMLC STLMLC [id number] [facility] 2022-08-22 13:19:00 Outpatient Smart, Benny STLMLC STLMLC [id number] [facility] 2022-05-18 11:08:00 Outpatient Smart, Bneny STLMLC STLMLC [id number] [facility] 2022-05-06 09:31:00 Outpatient Smart, Benny STLMLC STLMLC [id number] [facility] 2022-01-20 08:29:00 [facility] [id number] [facility] 2021-11-17 14:19:29 [facility] [id number] [facility] 2021-11-17 13:45:03 [facility] [id number] [facility] 2021-11-17 12:23:40 [facility] [id number] [facility] 2021-11-17 12:08:39 [facility] [id number] [facility] 2021-11-17 11:29:40 [facility] [id number] [facility] 2021-11-17 11:24:43 [facility] [id number] [facility] 2021-11-17 11:24:07 [facility] [id number] [facility] 2021-08-24 06:27:16 Emergency [facility] [id number] [facility] 2021-08-23 11:45:25 Emergency [facility] [id number] [facility] 2021-08-21 13:31:42 Emergency [facility] [id number] [facility] 2021-08-20 19:06:29 Emergency [facility] [id number] [facility] 2021-08-19 12:19:52 Inpatient SONDRA LUNA MICHAEL [facility] FABRIZIO [id number] [facility] 2024-06-12 00:00:00 2024-07-13 18:19:05 Patient Secure Msg Doctor Unassigned, [place] Doctor Unassigned, [place] [facility] 1..840.114 350.1.13.10 4.2.7.2.686 [id number] [facility] 2024-07-08 00:00:00 2024-07-08 00:00:00 (TEL) STLMLC STLMLC [id number] [facility] 2024-06-21 00:00:00 2024-06-21 00:00:00 OFFICE VISIT ESTAB PT LEVEL 4 STLMLC STLMLC [id number] [facility] 2024-06-17 00:00:00 2024-06-18 12:01:18 Transition of Care Yoli Rhodes Marisa M [address] 1.840.114 350.1.13.10 4.2.7.2.686 [id number] [facility] 2024-06-18 00:00:00 2024-06-18 00:00:00 OFFICE VISIT ESTAB PT LEVEL 3 STLC STLC [id number] [facility] 2024-06-13 07:30:00 2024-06-14 15:25:00 Outpatient X [facility]LE [facility] [id number] [facility] 2024-06-13 07:30:00 2024-06-14 15:25:00 Emergency Jose Francisco Meza Jelani [facility] 1..840.114 350.1.13.10 4.2.7.2.686 [id number] [facility] 2024-06-14 00:00:00 2024-06-14 00:00:00 (TEL) STLC STLC [id number] [facility] 2024-06-10 00:00:00 2024-06-11 17:11:44 Transition of Care Yoli Rhodes Marisa M [address] 1..840.114 350.1.13.10 4.2.7.2.686 [id number] [facility] 2024-06-07 16:38:00 2024-06-08 17:10:00 Inpatient X RACHAELGEORGEMICHELLE [facility] ATA [id number] [facility] 2024-06-07 16:38:00 2024-06-08 17:10:00 Hospital Encounter Aris Hill Michelle Toney [facility] 1.2.840.114 350.1.13.10 4.2.7.2.686 [id number] [facility] 2024-01-23 00:00:00 2024-01-23 00:00:00 OFFICE VISIT ESTAB PT LEVEL 4 STLMLC STLMLC [id number] [facility] 2023-11-02 00:00:00 2023-11-02 00:00:00 (TEL) STLMLC STLMLC [id number] [facility] 2023-10-24 00:00:00 2023-10-24 00:00:00 (TEL) STLMLC STLMLC [id number] [facility] 2023-10-24 00:00:00 2023-10-24 00:00:00 OFFICE VISIT ESTAB PT LEVEL 4 STLMLC STLMLC [id number] [facility] 2023-10-24 00:00:00 2023-10-24 00:00:00 (TEL) STLMLC STLMLC [id number] [facility] 2023-07-27 00:00:00 2023-07-27 00:00:00 PREV VISIT EST AGE 18-39 STLMLC STLMLC [id number] [facility] 2023-07-12 00:00:00 2023-07-12 00:00:00 (TEL) STLMLC STLMLC [id number] [facility] 2023-06-29 00:00:00 2023-06-29 00:00:00 OFFICE VISIT ESTAB PT LEVEL 3 STLMLC STLMLC [id number] [facility] 2023-06-29 00:00:00 2023-06-29 00:00:00 (TEL) STLMLC STLMLC [id number] [facility] 2023-04-07 00:00:00 2023-04-07 00:00:00 OFFICE VISIT ESTAB PT LEVEL 4 STLMLC STLMLC [id number] [facility] 2022-12-23 00:00:00 2022-12-23 00:00:00 OFFICE VISIT ESTAB PT LEVEL 3 STLMLC STLMLC [id number] [facility] 2022-12-23 00:00:00 2022-12-23 00:00:00 (TEL) STLMLC STLMLC [id number] [facility] 2022-12-16 00:00:00 2022-12-16 00:00:00 (TEL) STLMLC STLMLC [id number] [facility] 2022-12-15 00:00:00 2022-12-15 00:00:00 OFFICE VISIT ESTAB PT LEVEL 4 STLMLC STLMLC [id number] [facility] 2022-10-12 00:00:00 2022-10-12 00:00:00 OFFICE VISIT ESTAB PT LEVEL 4 STLMLC STLMLC [id number] [facility] 2022-08-30 00:00:00 2022-08-30 00:00:00 (TEL) STLMLC STLMLC [id number] [facility] 2022-08-24 00:00:00 2022-08-24 00:00:00 OFFICE VISIT ESTAB PT LEVEL 4 STLMLC STLMLC [id number] [facility] 2022-08-16 00:00:00 2022-08-16 00:00:00 (TEL) STLMLC STLMLC [id number] [facility] 2022-08-16 00:00:00 2022-08-16 00:00:00 OFFICE VISIT EST PT LEVEL 3 STLMLC STLMLC [id number] [facility] 2022-07-26 00:00:00 2022-07-26 00:00:00 OFFICE VISIT EST PT LEVEL 3 STLMLC STLMLC [id number] [facility] 2022-07-25 00:00:00 2022-07-25 00:00:00 (TEL) STLMLC STLMLC [id number] [facility] 2022-07-08 00:00:00 2022-07-08 00:00:00 (TEL) STLMLC STLMLC [id number] [facility] 2022-07-08 00:00:00 2022-07-08 00:00:00 OFFICE VISIT ESTAB PT LEVEL 2 STLMLC STLMLC [id number] [facility] 2022-06-22 00:00:00 2022-06-22 00:00:00 (TEL) STLMLC STLMLC [id number] [facility] 2022-05-30 00:00:00 2022-05-30 00:00:00 (TEL) STLMLC STLMLC [id number] [facility] 2022-05-20 00:00:00 2022-05-20 00:00:00 OFFICE VISIT ESTAB PT LEVEL 4 STLMLC STLMLC [id number] [facility] 2022-04-28 00:00:00 2022-04-28 00:00:00 PREV VISIT EST AGE 18-39 STLMLC STLMLC [id number] [facility] 2022-04-28 00:00:00 2022-04-28 00:00:00 (TEL) STLMLC STLMLC [id number] [facility] 2022-03-30 00:00:00 2022-03-30 00:00:00 (TEL) STLMLC STLMLC [id number] [facility] 2022-03-30 00:00:00 2022-03-30 00:00:00 OFFICE VISIT ESTAB PT LEVEL 4 STLMLC STLMLC [id number] [facility] 2022-03-29 00:00:00 2022-03-29 00:00:00 (TEL) STLMLC STLMLC [id number] [facility] 2022-02-24 00:00:00 2022-02-24 00:00:00 OFFICE VISIT ESTAB PT LEVEL 4 STLMLC STLMLC [id number] [facility] 2022-01-26 00:00:00 2022-01-26 00:00:00 (TEL) STLMLC STLMLC [id number] [facility] 2022-01-20 00:00:00 2022-01-20 00:00:00 (TEL) STLMLC STLMLC [id number] [facility] 2022-01-20 00:00:00 2022-01-20 00:00:00 (TEL) STLMLC STLMLC [id number] [facility] 2022-01-19 00:00:00 2022-01-19 00:00:00 (TEL) STLMLC STLMLC [id number] [facility] 2022-01-19 00:00:00 2022-01-19 00:00:00 OFFICE VISIT EST PT LEVEL 3 STLMLC STLMLC [id number] [facility] 2021-12-23 00:00:00 2021-12-23 00:00:00 (TEL) STLMLC STLMLC [id number] [facility] 2021-12-23 00:00:00 2021-12-23 00:00:00 (TEL) STLMLC STLMLC [id number] [facility] 2021-12-22 00:00:00 2021-12-22 00:00:00 OFFICE VISIT ESTAB PT LEVEL 4 STLMLC STLMLC [id number] [facility] 2021-12-22 00:00:00 2021-12-22 00:00:00 (TEL) STLMLC STLMLC [id number] [facility] 2021-11-03 00:00:00 2021-11-03 00:00:00 (TEL) STLMLC STLMLC [id number] [facility] 2021-11-02 00:00:00 2021-11-02 00:00:00 (TEL) STLMLC STLMLC [id number] [facility] 2021-09-22 00:00:00 2021-09-22 00:00:00 OFFICE VISIT ESTAB PT LEVEL 4 STLMLC STLMLC [id number] [facility] 2021-08-05 00:00:00 2021-08-05 00:00:00 OFFICE VISIT EST PT LEVEL 3 STLMLC STLMLC [id number] [facility] 2021-08-05 00:00:00 2021-08-05 00:00:00 (TEL) STLMLC STLMLC [id number] [facility] 2021-08-04 11:11:00 2021-08-04 14:06:00 Emergency Armond Moore [facility] 1.2.840.114 350.1.13.10 4.2.7.2.686 [id number] [facility] 2021-08-04 00:00:00 2021-08-04 00:00:00 (TEL) STLMLC STLMLC [id number] [facility] 2021-08-03 00:00:00 2021-08-03 00:00:00 (TEL) STLMLC STLMLC [id number] [facility] 2021-06-23 00:00:00 2021-06-23 00:00:00 Outpatient STLMLC STLMLC [id number] [facility] 2021-06-08 00:00:00 2021-06-08 00:00:00 Outpatient STLMLC STLMLC [id number] [facility] 2021-06-07 00:00:00 2021-06-07 00:00:00 Outpatient STLMLC STLMLC [id number] [facility] 2021-06-03 00:00:00 2021-06-03 00:00:00 Outpatient STLMLC STLMLC [id number] [facility] 2021-05-31 00:00:00 2021-05-31 00:00:00 Outpatient STLMLC STLMLC [id number] [facility] 2021-05-31 00:00:00 2021-05-31 00:00:00 Outpatient STLMLC STLMLC [id number] [facility] 2021-05-20 12:07:00 2021-05-20 16:13:00 Emergency TrevBlaine boldenge [facility] 1.2.840.114 350.1.13.10 4.2.7.2.686 [id number] [facility] 2021-05-20 00:00:00 2021-05-20 00:00:00 Orders Only Doctor Unassigned, [place] [facility] 1.2.840.114 350.1.13.10 4.2.7.2.686 [id number] [facility] 2021-05-20 00:00:00 2021-05-20 00:00:00 Outpatient STLMLC STLMLC [id number] [facility] 2021-03-23 00:00:00 2021-03-23 00:00:00 Outpatient STLMLC STLMLC [id number] [facility] 2021-02-25 00:00:00 2021-02-25 00:00:00 Outpatient STLMLC STLMLC [id number] [facility] 2021-02-22 00:00:00 2021-02-22 00:00:00 Outpatient STLMLC STLMLC [id number] [facility] 2021-02-18 00:00:00 2021-02-18 00:00:00 Outpatient STLMLC STLMLC [id number] [facility] 2021-01-27 00:00:00 2021-01-27 00:00:00 Outpatient STLMLC STLMLC [id number] [facility] 2021-01-27 00:00:00 2021-01-27 00:00:00 Outpatient STLMLC STLMLC [id number] [facility] 2021-01-21 13:11:00 2021-01-21 16:40:00 Emergency Asad Sandee Torres [facility] 1.2.840.114 350.1.13.10 4.2.7.2.686 [id number] [facility] 2021-01-21 13:11:00 2021-01-21 16:40:00 Emergency X SANDEE GUILLEN [facility] ERT [id number] [facility] 2021-01-20 00:00:00 2021-01-20 00:00:00 Outpatient STLMLC STLMLC [id number] [facility] 2021-01-20 00:00:00 2021-01-20 00:00:00 Outpatient STLMLC STLMLC [id number] [facility] 2021-01-11 00:00:00 2021-01-11 00:00:00 Patient Outreach Tim Monae [facility] 1.2.840.114 350.1.13.10 4.2.7.2.686 [id number] [facility] 2020-12-21 00:00:00 2020-12-21 00:00:00 Outpatient STLMLC STLMLC [id number] [facility] 2020-11-12 00:00:00 2020-11-12 00:00:00 Outpatient STLMLC STLMLC [id number] [facility] 2020-11-12 00:00:00 2020-11-12 00:00:00 Outpatient STLMLC STLMLC [id number] [facility] 2020-10-26 00:00:00 2020-10-26 00:00:00 Outpatient STLMLC STLMLC [id number] [facility] 2020-10-20 07:39:00 2020-10-20 09:57:00 Emergency Aris Hill [facility] 1.2.840.114 350.1.13.10 4.2.7.2.686 [id number] [facility] 2020-10-14 00:00:00 2020-10-14 00:00:00 Outpatient STLMLC STLMLC [id number] [facility] 2020-10-06 00:00:00 2020-10-06 00:00:00 Outpatient STLMLC STLMLC [id number] [facility] 2020-10-01 00:00:00 2020-10-01 00:00:00 Outpatient STLMLC STLMLC [id number] [facility] 2020-09-21 00:00:00 2020-09-21 00:00:00 Outpatient STLMLC STLMLC [id number] [facility] 2020-08-05 00:00:00 2020-08-05 00:00:00 Outpatient STLMLC STLMLC [id number] [facility] 2020-08-04 00:00:00 2020-08-04 00:00:00 Outpatient STLMLC STLMLC [id number] [facility] 2020-07-16 00:00:00 2020-07-16 00:00:00 Letter (Out) Li Hernandez [facility] 1.2.840.114 350.1.13.10 4.2.7.2.686 [id number] [facility] 2020-07-15 16:40:00 2020-07-15 18:23:00 Emergency Clarence Weiss [facility] 1.2.840.114 350.1.13.10 4.2.7.2.686 [id number] [facility] 2020-07-15 00:00:00 2020-07-15 00:00:00 Outpatient STLMLC STLMLC [id number] [facility] 2020-07-15 00:00:00 2020-07-15 00:00:00 Outpatient STLMLC STLMLC [id number] [facility] 2020-07-09 08:20:00 2020-07-09 08:20:[address] [facility] [id number] [facility] 2020-06-23 13:38:00 2020-06-23 13:38:[address] [facility] [id number] [facility] 2020-06-08 16:00:00 2020-06-08 16:00:[address] [facility] [id number] [facility] 2020-06-02 16:31:00 2020-06-02 16:31:[address] [facility] [id number] [facility] 2020-06-02 08:30:00 2020-06-02 08:30:[address] [facility] [id number] [facility] 2020-06-01 10:46:00 2020-06-01 10:46:[address] [facility] [id number] [facility] 2020-04-27 13:00:00 2020-04-27 13:00:[address] [facility] [id number] [facility] 2020-03-25 16:45:00 2020-03-25 16:45:[address] [facility] [id number] [facility] 2020-02-26 14:15:00 2020-02-26 14:15:[address] [facility] [id number] [facility] 2020-01-29 00:00:00 2020-01-29 00:00:[address] [facility] 1.2.840.114 350.1.13.10 4.2.7.2.686 [id number] [facility] 2020-01-29 00:00:00 2020-01-29 00:00:00 Refill Doctor Unassigned, [place] [facility] Zay Rodriguez [facility] 1.2.840.114 350.1.13.10 4.2.7.2.686 [id number] [facility] 2020-01-29 00:00:00 2020-01-29 00:00:00 Patient Secure Msg Doctor Unassigned, [place] [facility] 1.2.840.114 350.1.13.10 4.2.7.2.686 [id number] [facility] 2020-01-29 00:00:00 2020-01-29 00:00:00 Patient Secure Msg Doctor Unassigned, [place] [facility] 1..840.114 350.1.13.10 4.2.7.2.686 [id number] [facility] 2020-01-29 00:00:00 2020-01-29 00:00:00 Patient Secure Msg Doctor Unassigned, [place] [facility] 1..840.114 350.1.13.10 4.2.7.2.686 [id number] [facility] 2020-01-29 00:00:00 2020-01-29 00:00:00 Patient Secure Msg Doctor Unassigned, [place] [facility] Michael [facility] 1.2.840.114 350.1.13.10 4.2.7.2.686 [id number] [facility] 2020-01-17 08:20:35 2020-01-17 16:41:15 Telemedici ne Visit Sondra Chavira [facility] 1.2.840.114 350.1.13.10 4.2.7.2.686 [id number] [facility] 2020-01-17 13:15:00 2020-01-17 13:15:00 Outpatient R SONDRA CHAVIRA MICHAEL [facility] [id number] [facility] 2020-01-17 00:00:00 2020-01-17 00:00:00 Telephone [facility] 1.2.840.114 350.1.13.10 4.2.7.2.686 [id number] [facility] 2020-01-07 00:00:00 2020-01-07 00:00:00 Telephone [facility] 1.2.840.114 350.1.13.10 4.2.7.2.686 [id number] [facility] 2020-01-06 00:00:00 2020-01-06 00:00:00 Telephone [facility] 1.2.840.114 350.1.13.10 4.2.7.2.686 [id number] [facility] 2020-01-03 08:46:00 2020-01-03 15:02:00 Hospital Encounter Sondra Chavira [facility] 1.2.840.114 350.1.13.10 4.2.7.2.686 [id number] [facility] 2019-11-29 15:59:09 2020-01-03 14:53:01 Office Visit Sondra Chavira [facility] 1.2.840.114 350.1.13.10 4.2.7.2.686 [id number] [facility] 2020-01-03 00:00:00 2020-01-03 00:00:00 Orders Only Doctor Unassigned, [place] [facility] 1.2.840.114 350.1.13.10 4.2.7.2.686 [id number] [facility] 2019-12-30 00:00:00 2019-12-30 00:00:00 Telephone Sondra Chavira [facility] 1.2.840.114 350.1.13.10 4.2.7.2.686 [id number] 134 [id number] [facility] 2019-12-27 16:00:00 2019-12-27 16:00:00 Outpatient R SONDRA CHAVIRA MICHAEL [facility] [id number] [facility] 2019-12-10 00:00:00 2019-12-10 00:00:00 Case Management Sondra Chavira [facility] 1.2.840.114 350.1.13.10 4.2.7.2.686 [id number] [facility] 2019-12-05 00:00:00 2019-12-05 00:00:00 Telephone Sondra Chavira [facility] 1.2.840.114 350.1.13.10 4.2.7.2.686 [id number] 134 [id number] [facility] 2019-12-02 00:00:00 2019-12-02 00:00:00 Prep For Surgery Carmen Kenndey [facility] 1.2.840.114 350.1.13.10 4.2.7.2.686 [id number] 134 [id number] [facility] 2019-12-02 00:00:00 2019-12-02 00:00:[address] [facility] 1.2.840.114 350.1.13.10 4.2.7.2.686 [id number] 134 [id number] [facility] 2019-12-01 00:00:00 2019-12-01 00:00:00 Case Management OmariSondra serna [facility] 1.2.840.114 350.1.13.10 4.2.7.2.686 [id number] [facility] 2019-11-29 16:00:00 2019-11-29 17:56:19 Outpatient R SONDRA CHAVIRA SONDRA [facility] [id number] [facility] 2019-11-29 00:00:00 2019-11-29 00:00:00 Orders Only Doctor Unassigned, [place] [facility] 1.284.114 350.1.13.10 4.2.7.2.686 [id number] [facility] 2019-11-19 00:00:00 2019-11-19 00:00:[address] [facility] Building 1.2.840.114 350.1.13.10 4.2.7.2.686 [id number] [facility] 2019-11-18 00:00:00 2019-11-18 00:00:[address] [facility] Building 1.2.84.114 350.1.13.10 4.2.7.2.686 [id number] [facility] 2019-11-15 17:30:16 2019-11-15 17:45:16 Systems Analyst Developer Visit Pob, Adc Lab Main KrupaSondra durbin [facility] Building 1.2.84.114 350.1.13.10 4.2.7.2.686 [id number] [facility] 2019-11-15 16:00:41 2019-11-15 17:19:59 Office Visit DicleSondra durbin [facility] 1.2.840.114 350.1.13.10 4.2.7.2.686 [id number] 134 [id number] [facility] 2019-11-15 00:00:00 2019-11-15 00:00:00 Orders Only Doctor Unassigned, [place] [facility] 1..840.114 350.1.13.10 4.2.7.2.686 [id number] [facility] 2019-11-12 00:00:00 2019-11-12 00:00:00 Telephone Sondra Chavira [facility] 1..840.114 350.1.13.10 4.2.7.2.686 [id number] 134 [id number] [facility] 2019-09-24 08:45:00 2019-09-24 08:45:[address] [facility] [facility] [address] [facility] [id number] [facility] 2019-08-13 09:15:00 2019-08-13 09:15:00 [facility] [facility] [address] [facility] [id number] [facility] 2019-07-24 15:00:00 2019-07-24 15:00:00 [facility] [address] [facility] [id number] [facility] 2019-07-08 10:56:00 2019-07-08 10:56:00 [facility] [address] [facility] [id number] [facility] 2019-06-11 10:15:00 2019-06-11 10:15:00 [facility] [address] [facility] [id number] [facility] 2019-06-07 09:59:31 2019-06-07 10:24:10 Nurse Visit Nurse, [facility] Sondra Chavira [facility] 1.2.840.114 350.1.13.10 4.2.7.2.686 [id number] 134 [id number] [facility] 2019-04-30 13:30:00 2019-04-30 13:30:00 [facility] [id number] [facility] Results Test Description Test Time Test Comments Results Result Co mments Source [facility] [id number] 21:36:00Aris Hill MD ? ? 06/08/2024 ?7:50 AMCritical Care Performed by: Aris Hill MDAuthorizedby: Aris Hill MD ?Critical care provider statement: ?Critical care time (minutes): ?45 ?Critical care time was exclusive of: ?Separately billable procedures and treating other patients and teaching time ?Critical care was necessary to treat or prevent imminent or life-threatening deterioration of the following conditions: anaphylaxis. ?Critical care was time spent personally by me on the following activities: ?Development of treatment plan with patient or surrogate, evaluation of patient's response to treatment, examination of patient, obtaining history from patient or surrogate, ordering and performing treatments and interventions, ordering and review of laboratory studies, orderingand review of radiographic studies, pulse oximetry, re-evaluation of patient's condition and reviewof old charts ?Care discussed with: admitting provider ?Comments: ? Due to a high probability of clinically significant, life threatening deterioration, the patient required my highest level of preparedness to intervene emergently and I personally spent this critical care time directly and personally managing the patient. This critical care time included obtaining a history; examining the patient; pulse oximetry; ordering and review of studies; arranging urgent treatment with development of a management plan; evaluation of patient's response to treatment; frequent reassessment; and, discussions with other providers.This critical care time was performed to assess and manage the high probability of imminent, life-threatening deterioration that could result in multi-organ failure. It was exclusive of separately billable procedures and treating other patients.[facility] W/AUTO [id number] 00:00:00* Test Item Value Reference Range Interpretation Comme nts NUCLEATED RBCS (test code = 91214-0) 0.0 /100 WBC'S See_Comment [Automated messa ge] The system which generated this result transmitted reference range: 0.0 /100 WBC'S. The reference range was not used to interpret this result as normal/abnormal. ABSOLUTE EOSINOPHILS (test code = 38240-3) 0.23 K/UL See_Comment [Automated messa ge] The system which generated this result transmitted reference range: 0.00-0.50 K/UL. The reference range was not used to interpret this result as normal/abnormal. ABSOLUTE LYMPHOCYTES (test code = 50863-4) 3.50 K/UL See_Comment [Automated messa ge] The system which generated this result transmitted reference range: 1.00-4.00 K/UL. The reference range was not used to interpret this result as normal/abnormal. ABSOLUTE MONOCYTES (test code = 82371-5) 0.45 K/UL See_Comment [Automated messa ge] The system which generated this result transmitted reference range: 0.20-1.00 K/UL. The reference range was not used to interpret this result as normal/abnormal. ABSOLUTE NEUTROPHILS (test code = 46731-6) 5.34 K/UL See_Comment [Automated messa ge] The system which generated this result transmitted reference range: 1.50-7.50 K/UL. The reference range was not used to interpret this result as normal/abnormal. BASOPHILS (test code = 56882-1) 0.7 % EOSINOPHILS (test code = 71246-4) 2.4 % HEMATOCRIT (test code = 22908-0) 34.3 % See_Comment [Automated messa ge] The system which generated this result transmitted reference range: 34.0-45.0 %. The reference range was not used to interpret this result as normal/abnormal. HEMOGLOBIN (test code = 718-7) 11.3 G/DL See_Comment L [Automated messa ge] The system which generated this result transmitted reference range: 11.5-15.5 G/DL. The reference range was not used to interpret this result as normal/abnormal. LYMPHOCYTES (test code = 39347-0) 36.4 % MCH (test code = 65712-6) 30.4 PG See_Comment [Automated messa ge] The system which generated this result transmitted reference range: 25.0-33.0 PG. The reference range was not used to interpret this result as normal/abnormal. MCHC (test code = 93334-3) 32.9 G/DL See_Comment [Automated messa ge] The system which generated this result transmitted reference range: 31.0-36.0 G/DL. The reference range was not used to interpret this result as normal/abnormal. MCV (test code = 93816-4) 92.2 fL See_Comment [Automated messa ge] The system which generated this result transmitted reference range: 80.0-99.0 fL. The reference range was not used to interpret this result as normal/abnormal. MONOCYTES (test code = 28649-6) 4.7 % NEUTROPHILS (test code = 65924-8) 55.5 % PLATELET COUNT (test code = 88277-9) 344 K/UL See_Comment [Automated messa ge] The system which generated this result transmitted reference range: 130-400 K/UL. The reference range was not used to interpret this result as normal/abnormal. RBC (test code = 10054-4) 3.72 M/UL See_Comment L [Automated messa ge] The system which generated this result transmitted reference range: 3.80-5.40 M/UL. The reference range was not used to interpret this result as normal/abnormal. RDW (test code = 48522-4) 11.8 % See_Comment [Automated messa ge] The system which generated this result transmitted reference range: 11.5-15.0 %. The reference range was not used to interpret this result as normal/abnormal. WBC (test code = 25542-9) 9.6 K/UL See_Comment [Automated messa ge] The system which generated this result transmitted reference range: 3.5-11.0 K/UL. The reference range was not used to interpret this result as normal/abnormal. STREP A [id number] 00:00:00ResultCOMP. METABOLIC PANEL (15731)2021-08-04 17:13:25* Test Item Value Reference Range Interpretation Comme nts NA (test code = 8345118585) 139 mmol/L 135-145 K (test code = 7139618281) 4.2 mmol/L 3.5-5.0 CL (test code = 9279437281) 109 mmol/L 98-108 H CO2 TOTAL (test code = 5678801972) 20 mmol/L 23-31 L AGAP (test code = 3269239170) 2-16 BUN (test code = 3467463951) 10 mg/dL 7-23 GLUCOSE (test code = 9284153682) 100 mg/dL 70-110 CREATININE (test code = 6068955676) 0.57 mg/dL 0.50-1.04 TOTAL BILI (test code = 0516616250) 0.4 mg/dL 0.1-1.1 CALCIUM (test code = 4966914523) 9.4 mg/dL 8.6-10.6 T PROTEIN (test code = 6770724093) 7.2 g/dL 6.3-8.2 ALBUMIN (test code = 5153146399) 4.5 g/dL 3.5-5.0 ALK PHOS (test code = 0428053776) 76 U/L 34-122 ALTv (test code = 1742-6) 22 U/L 5-35 AST(SGOT) (test code = 2461096419) 26 U/L 13-40 eGFR (test code = 9158940675) mL/min/1.73m2 NAHUM (test code = NAHUM) Association [...] imaging tests). Lab Interpretation (test code = 95890-8) Abnormal [facility] Hospital[facility]IPASE2021-[facility]-13 17:12:44* Test Item Value Reference Range Interpretation Comme nts LIPASE (test code = 8218548352) 74 U/L 0-220 Lab Interpretation (test cod e = 84340-4) Normal [facility]CBC WITH [id number] 17:00:06* Test Item Value Reference Range Interpretation Comme nts WBC (test code = 6690-2) See_Comment [Automated messa ge] The system which generated this result transmitted reference range: 4.30 - 11.10 10*3/?L. The reference range was not used to interpret this result as normal/abnormal. RBC (test code = 789-8) See_Comment [Automated messa ge] The system which generated this result transmitted reference range: 3.93 - 5.25 10*6/?L. The reference range was not used to interpret this result as normal/abnormal. HGB (test code = 718-7) 13.2 g/dL 11.6-15.0 HCT (test code = 4544-3) 40.6 % 35.7-45.2 MCV (test code = 787-2) 91.6 fL 80.6-95.5 MCH (test code = 785-6) 29.8 pg 25.9-32.8 MCHC (test code = 786-4) 32.5 g/dL 31.6-35.1 RDW-SD (test code = 68330-6) 41.0 fL 39.0-49.9 RDW-CV (test code = 788-0) 12.2 % 12.0-15.5 PLT (test code = 777-3) See_Comment H [Automated messa ge] The system which generated this result transmitted reference range: 166 - 358 10*3/?L. The reference range was not used to interpret this result as normal/abnormal. MPV (test code = 28027-8) 10.0 fL 9.5-12.9 NRBC/100 WBC (test code = 3506016273) See_Comment [Automated me ssage] The system which generated this result transmitted reference range: 0.0 - 10.0 /100 WBCs. The reference range was not used to interpret this result as normal/abnormal. NRBC x10^3 (test code = 2540141494) <0.01 See_Comment [Automated messa ge] The system which generated this result transmitted reference range: 10*3/?L. The reference range was not used to interpret this result as normal/abnormal. GRAN MAT (NEUT) % (test code = 770-8) 57.4 % IMM GRAN % (test code = 3366713943) 0.30 % LYMPH % (test code = 736-9) 34.0 % MONO % (test code = 5905-5) 5.5 % EOS % (test code = 713-8) 1.9 % BASO % (test code = 706-2) 0.9 % GRAN MAT x10^3(ANC) (test code = 3586662059) 6.05 10*3/uL 1.88-7.09 IMM GRAN x10^3 (test code = 5799831335) 0.03 10*3/uL 0.00-0.06 LYMPH x10^3 (test code = 731-0) 3.59 10*3/uL 1.32-3.29 H MONO x10^3 (test code = 742-7) 0.58 10*3/uL 0.33-0.92 EOS x10^3 (test code = 711-2) 0.20 10*3/uL 0.03-0.39 BASO x10^3 (test code = 704-7) 0.10 10*3/uL 0.01-0.07 H Lab Interpretation (test code = 62750-4) Abnormal [facility] HospitalCT K[facility]EE RIGHT WO [id number] 19:58:17No evidence of fracture or traumatic malalignment. No joint effusion. RL: 4400 End of report Ordering physician:K SYDNI TREV CLINICAL HISTORY: Right knee pain. Possible fracture. TECHNIQUE: ?Helical CT images of the right knee were obtained withoutcontrast. Axial, sagittal and coronal reconstructions were performed. ALARA(As Low As Reasonably Achievable) ?principles was used during thisexamination. COMPARISON: ? Radiographs earlier today FINDINGS: No acute fracture. Bony alignment is maintained. Visualized joints appearpreserved. Nojoint effusion. Musculature is within normal limits. Nosignificant soft tissue swelling. [facility], Radiant Results Inft User - 05/20/2021 2:59 PM CDT Ordering physician:Blaine PEREZ CLINICAL HISTORY: Right knee pain. Possible fracture.TECHNIQUE: Helical CT images of the right knee were obtained withoutcontrast. Axial, sagittal and coronal reconstructions were performed. ALARA(As Low As Reasonably Achievable) principles was used during thi sexamination.COMPARISON: Radiographs earlier todayFINDINGS:No acute fracture. Bony alignment is maintained. Visualized joints appearpreserved. No joint effusion. Musculature is within normal limits. Nosignificant soft tissue swelling.IMPRESSIONNo evidence of fracture or traumatic malalignment.No joint effusion.RL: 4400End of report [facility] HospitalXR KNEE 3 VW [id number] 17:44:46Questionable lateral tibial plateau fracture with knee joint effusion.Findings may be further characterized with a CT scan of the knee. Osteoarthrosis. EXAM: XR KNEE 3 VW RIGHT HISTORY: fall and right knee pain COMPARISON: None FINDINGS: Imaging of the knee demonstrates mild tricompartmental marginal osteophyteswith mild medial compartment joint space narrowing. There is a moderatesized effusion.Focal cortical irregularity projects over the anteriorarticular margin [...] plateau fracture with knee joint effusion.Findings may befurther characterized with a CT scan of the knee.Osteoarthrosis.[facility] HospitalUrinalysis 2021-01-21 21:26:51* Test Item Value Reference Range Interpretation Comme nts APPEARANCE (test code = 9298741056) Hazy Clear A COLOR (test code = 4325454604) Yellow Yellow PH (test code = 4478616036) 4.8-8.0 SP GRAVITY (test code = 7622088500) 1.003-1.030 GLU U QUAL (test code = 7134086271) Normal Normal BLOOD (test code = 7735088353) 2+ Negative A KETONES (test code = 3624980860) 5 mg/dL Negative A PROTEIN (test code = 2887-8) Negative Negative UROBILIN (test code = 6717366849) Normal Normal BILIRUBIN (test code = 6313614265) Negative Negative NITRITE (test code = 6109299441) Negative Negative LEUK CHRIS (test code = 9782890068) Negative Negative RBC/HPF (test code = 5898633083) See_Comment H [Automated Decurate ge] The system which generated this result transmitted reference range: 0 - 3 HPF. The reference range was not used to interpret this result as normal/abnormal. WBC/HPF (test code = 3762956980) See_Comment [Automated eshterya ge] The system which generated this result transmitted reference range: 0 - 5 HPF. The reference range was not used to interpret this result as normal/abnormal. BACTERIA (test code = 4463776379) Few Negative A MUCOUS (test code = 3918338224) Moderate Negative LPF A SQ EPITH (test code = 1302244464) HPF Lab Interpretation (test code = 83353-2) Abnormal [facility] HospitalBasic Metabolic Panel (NA, K, CL, CO2, GLUCOSE, BUN, CREATININE, CA)2021-01-21 20:06:25* Test Item Value Reference Range Interpretation Comme nts NA (test code = 3137671170) 139 mmol/L 135-145 K (test code = 2923186926) 3.9 mmol/L 3.5-5.0 CL (test code = 8118730818) 105 mmol/L 98-108 CO2 TOTAL (test code = 6075545731) 25 mmol/L 23-31 AGAP (test code = 2555217232) 2-16 BUN (test code = 8530676071) 14 mg/dL 7-23 GLUCOSE (test code = 4617581836) 96 mg/dL 70-110 CREATININE (test code = 3862395594) 0.69 mg/dL 0.50-1.04 CALCIUM (test code = 5491187633) 9.4 mg/dL 8.6-10.6 eGFR (test code = 1770408047) mL/min/1.73m2 NAHUM (test code = NAHUM) Association [...] or urine or abnormalities in imaging tests). [facility] with Mnjzghzchtip2258-08-27 19:53:28* Test Item Value Reference Range Interpretation Comme nts WBC (test code = 6690-2) See_Comment H [Automated Nitch] The system which generated this result transmitted reference range: 4.30 - 11.10 10*3/?L. The reference range was not used to interpret this result as normal/abnormal. RBC (test code = 789-8) See_Comment [Automated eshterya ge] The system which generated this result transmitted reference range: 3.93 - 5.25 10*6/?L. The reference range was not used to interpret this result as normal/abnormal. HGB (test code = 718-7) 13.0 g/dL 11.6-15.0 HCT (test code = 4544-3) 39.2 % 35.7-45.2 MCV (test code = 787-2) 88.3 fL 80.6-95.5 MCH (test code = 785-6) 29.3 pg 25.9-32.8 MCHC (test code = 786-4) 33.2 g/dL 31.6-35.1 RDW-SD (test code = 84437-9) 39.5 fL 39.0-49.9 RDW-CV (test code = 788-0) 12.1 % 12.0-15.5 PLT (test code = 777-3) See_Comment H [Automated eshterya ge] The system which generated this result transmitted reference range: 166 - 358 10*3/?L. The reference range was not used to interpret this result as normal/abnormal. MPV (test code = 80903-3) 9.3 fL 9.5-12.9 L NRBC/100 WBC (test code = 3700412907) See_Comment [Automated Floored ssage] The system which generated this result transmitted reference range: 0.0 - 10.0 /100 WBCs. The reference range was not used to interpret this result as normal/abnormal. NRBC x10^3 (test code = 0386939734) <0.01 See_Comment [Automated eshterya ge] The system which generated this result transmitted reference range: 10*3/?L. The reference range was not used to interpret this result as normal/abnormal. GRAN MAT (NEUT) % (test code = 770-8) 80.9 % IMM GRAN % (test code = 8058316771) 0.30 % LYMPH % (test code = 736-9) 10.6 % MONO % (test code = 5905-5) 6.5 % EOS % (test code = 713-8) 0.9 % BASO % (test code = 706-2) 0.8 % GRAN MAT x10^3(ANC) (test code = 6586733810) 9.40 10*3/uL 1.88-7.09 H IMM GRAN x10^3 (test code = 7448711941) 0.04 10*3/uL 0.00-0.06 LYMPH x10^3 (test code = 731-0) 1.23 10*3/uL 1.32-3.29 L MONO x10^3 (test code = 742-7) 0.76 10*3/uL 0.33-0.92 EOS x10^3 (test code = 711-2) 0.11 10*3/uL 0.03-0.39 BASO x10^3 (test code = 704-7) 0.09 10*3/uL 0.01-0.07 H Lab Interpretation (test code = 19340-9) Abnormal [facility] HospitalCOVID-[facility] (ID NOW RAPID TESTING)2021-01-21 19:10:38* Test Item Value Reference Range Interpretation Comme nts SARS-CoV-2 Rapid ID NOW (test code = 87395-1) Not Detected Not Detected NAHUM (test code = NAHUM) ID NOW COVID-19 As say is an isothermal nucleic acid amplification test intended for the qualitative detection of nucleic acid from SARS-CoV-2 viral RNA in nasopharyngeal (WORM PICKER) specimens. It is used under Emergency Use [...] patient testing if clinically indicated. Lab Interpretation (test code = 49705-7) Normal [facility] CHEST 1 [id number] 18:35:43HISTORY: Cough and SOB. FINDINGS: ?AP view of the chest showed normal appearance of thecardiomediastinal silhouette. No acute pneumonia, pleural effusion,pulmonary congestion detected. Old fracture deformity of mid right claviclenoted. CONCLUSIONS: No acute cardiopulmonary disease. [facility], Radiant Results Inft User - 01/21/2021 1:36 PM CDTHISTORY: Cough and SOB.FINDINGS: AP view of the chest showednormal appearance of thecardiomediastinal silhouette. No acute pneumonia, pleural effusion,pulmonary congestion detected. Old fracture deformity of mid right claviclenoted.CONCLUSIONS: No acute cardiopulmonary disease.[facility] HospitalCT ANGIOGRAM [id number] 15:41:05Normal CT neckCT ANGIOGRAM NECK HISTORY: Female 35 years Aneurysm, neck vessel(s) COMPARISON: None TECHNIQUE: Routine CTA neck following administration of 100 mL IV Omnipaque FINDINGS: Classic 3 vessel aortic arch branching anatomy. The arch vessel origins arewidely patent. The innominate and subclavian arteries are widely patent. The common carotid arteries, carotid bulbs and cervical internal ca rotidarteries are widely patent. The vertebral arteries are widely patent from their subclavian originsthrough the vertebrobasilar junction. [facility], Radiant Results Inft User - 10/20/2020 9:42 AM CSTCTANGIOGRAM NECKHISTORY: Female 35 years Aneurysm, neck vessel(s) COMPARISON: NoneTECHNIQUE: Routine CTA neck following administration of 100 mL IV OmnipaqueFINDINGS:Classic 3 vessel aortic arch branching anatomy. The arch vessel origins arewidely patent. The innominate and subclavian arteries are widely patent.The common carotid arteries, carotid bulbs and cervical internal carotidarteries are widely patent.The vertebral arteries are widely patent from their subclavian originsthrough the vertebro basilar junction.IMPRESSIONNormal CT neckUnBaylor Scott & White [facility] Center – GrapevineaPTT 2020-10-20 15:07:00* Test Item Value Reference Range Interpretation Comme nts APTT Patient (test code = 3173-2) See_Comment [Automated message] The system which generated this result transmitted reference range: 23 - 38 Seconds. The reference range was not used to interpret this result as normal/abnormal. NAHUM (test code = NAHUM) The [facility] patient population mean normal value for aPTT is 30 seconds. Lab Interpretation (test code = 57855-0) Normal [facility] HospitalProthrombin Time (PT) / [id number] 15:05:00 * Test Item Value Reference Range Interpretation Comme nts PROTIME PATIENT (test code = 5964-2) See_Comment [Automated eshterya ge] The system which generated this result transmitted reference range: 12.0 - 14.7 Seconds. The reference range was not used to interpret this result as normal/abnormal. INR (test code = 6301-6) Normal INR <1.1; Warfarin Therapeutic range 2.0 to 3.0 or 2.5 to 3.5, depending upon the indications. Lab Interpretation (test code = 94711-8) Normal [facility] HospitalBasi Metabolic Panel (NA, K, CL, CO2, GLUCOSE, BUN, CREATININE, CA)2020-10-20 14:21:00* Test Item Value Reference Range Interpretation Comme [facility] NA (test code = 2842758677) 140 mmol/L 135-145 K (test code = 2362899444) 3.8 mmol/L 3.5-5 CL (test code = 5569468273) 106 mmol/L 98-108 CO2 TOTAL (test code = 6855865361) 25 mmol/L 23-31 AGAP (test code = 4982975127) 2-16 BUN (test code = 7687512543) 15 mg/dL 7-23 GLUCOSE (test code = 7287480982) 108 mg/dL 70-110 CREATININE (test code = 4942331534) 0.65 mg/dL 0.5-1.04 CALCIUM (test code = 0090473242) 9.2 mg/dL 8.6-10.6 eGFR Calculation (Non-) (test code = 0409998322) mL/min/1.73m2 eGFR Calculation () (test code = 1055384676) mL/min/1.73m2 NAHUM (test code = NAHUM) Association [...] or urine or abnormalities in imaging tests). [facility] HospitalHepatic Function Panel (ALB, T.PRO, BILI T, BU/BC, ALT, AST, ALK PHOS)2020-10-20 14:20:00* Test Item Value Reference Range Interpretation Comme nts TOTAL BILI (test code = 7766475227) 0.4 mg/dL 0.1-1.1 BILI UNCON (test code = 4368285643) 0.3 mg/dL 0.1-1.1 BILI CONJ (test code = 1033972243) 0.0 mg/dL 0-0.3 T PROTEIN (test code = 7391834267) 7.3 g/dL 6.3-8.2 ALBUMIN (test code = 5411354023) 4.2 g/dL 3.5-5 ALK PHOS (test code = 2189530955) 96 U/L 34-122 ALTv (test code = 1742-6) 21 U/L 5-35 AST(SGOT) (test code = 9896370878) 23 U/L 13-40 Lab Interpretation (test cod e = 55505-2) Normal [facility] HospitalCB with [id number] 14:08:00* Test Item Value Reference Range Interpretation Comme nts WBC (test code = 6690-2) See_Comment [Automated messa ge] The system which generated this result transmitted reference range: 4.30 - 11.10 10*3/?L. The reference range was not used to interpret this result as normal/abnormal. RBC (test code = 789-8) See_Comment [Automated messa ge] The system which generated this result transmitted reference range: 3.93 - 5.25 10*6/?L. The reference range was not used to interpret this result as normal/abnormal. HGB (test code = 718-7) 12.7 g/dL 11.6-15 HCT (test code = 4544-3) 39.8 % 35.7-45.2 MCV (test code = 787-2) 91.5 fL 80.6-95.5 MCH (test code = 785-6) 29.2 pg 25.9-32.8 MCHC (test code = 786-4) 31.9 g/dL 31.6-35.1 RDW-SD (test code = 13707-4) 41.2 fL 39-49.9 RDW-CV (test code = 788-0) 12.3 % 12-15.5 PLT (test code = 777-3) See_Comment H [Automated messa ge] The system which generated this result transmitted reference range: 166 - 358 10*3/?L. The reference range was not used to interpret this result as normal/abnormal. MPV (test code = 68422-9) 9.2 fL 9.5-12.9 L NRBC/100 WBC (test code = 5569944893) See_Comment [Automated Floored ssage] The system which generated this result transmitted reference range: 0.0 - 10.0 /100 WBCs. The reference range was not used to interpret this result as normal/abnormal. NRBC x10^3 (test code = 7294529358) <0.01 See_Comment [Automated messa ge] The system which generated this result transmitted reference range: 10*3/?L. The reference range was not used to interpret this result as normal/abnormal. GRAN MAT (NEUT) % (test code = 770-8) 51.8 % IMM GRAN % (test code = 4502369749) 0.30 % LYMPH % (test code = 736-9) 36.1 % MONO % (test code = 5905-5) 7.0 % EOS % (test code = 713-8) 3.8 % BASO % (test code = 706-2) 1.0 % GRAN MAT x10^3(ANC) (test code = 4308388535) 4.85 10*3/uL 1.88-7.09 IMM GRAN x10^3 (test code = 6626332479) 0.03 10*3/uL 0-0.06 LYMPH x10^3 (test code = 731-0) 3.39 10*3/uL 1.32-3.29 H MONO x10^3 (test code = 742-7) 0.66 10*3/uL 0.33-0.92 EOS x10^3 (test code = 711-2) 0.36 10*3/uL 0.03-0.39 BASO x10^3 (test code = 704-7) 0.09 10*3/uL 0.01-0.07 H Lab Interpretation (test code = 50671-3) [id number]* Test Item Value Reference Range Interpretation Comme nts POCT PREG (test code = 1605) negative On board controls acceptable with C Line (test code = 3574) present POCT PREG LOT # (test code = 3575) [id number] POCT PREG TEST DATE ( test code = 3576) 2022-02-19 Lab Interpretation (test cod e = 00840-2) [facility] [id number] 22:32:00* Test Item Value Reference Range Interpretation Comme nts Streptococcus pyogenes (grou p A) antigen (test code = 83703-4) Negative Negative Lab Interpretation (test cod e = 64763-2) [facility] - The Type and Screen expires at midnight on the 3rd day after it was drawn. A current Type and Screen is required when RBCs are requested. For all other blood products, a Type and Scr een performed during the current hospitalizati...2020-01-03 15:17:39* Test Item Value Reference Range Interpretation Comme nts ABO & RH (test code = 20) A Positive Performed at [facility] Laboratory Services - [facility] Blood [address] [place], [place] [id number] Free: [phone] No. [id number] IAT (test code = 1185) Negative Performed at [facility] Laboratory Services [facility] Blood [address] [place] [id number] Free: [phone] No. [id number] [facility] METABOLIC PANEL (NA, K, CL, CO2, GLUCOSE, BUN, CREATININE, CA)2020-01-03 15:12:00* Test Item Value Reference Range Interpretation Comme nts NA (test code = 9400802634) 140 mmol/L 135-145 K (test code = 1888395230) 3.8 mmol/L 3.5-5 CL (test code = 3556407073) 111 mmol/L 98-108 H CO2 TOTAL (test code = 8357732169) 22 mmol/L 23-31 L AGAP (test code = 7502895194) 2-16 BUN (test code = 8993859866) 15 mg/dL 7-23 GLUCOSE (test code = 8968839936) 110 mg/dL 70-110 CREATININE (test code = 9437517211) 0.60 mg/dL 0.5-1.04 CALCIUM (test code = 4465755379) 8.8 mg/dL 8.6-10.6 eGFR Calculation (Non-) (test code = 5142064752) mL/min/1.73m2 eGFR Calculation () (test code = 6944145094) mL/min/1.73m2 NAHUM (test code = NAHUM) Association [...] imaging tests). Lab Interpretation (test code = 56798-4) Abnormal [facility] WITH [id number] 14:41:00* Test Item Value Reference Range Interpretation Comme nts WBC (test code = 6690-2) See_Comment [Hepa Wash] The system which generated this result transmitted reference range: 4.30 - 11.10 10*3/?L. The reference range was not used to interpret this result as normal/abnormal. RBC (test code = 789-8) See_Comment L [Hepa Wash] The system which generated this result transmitted reference range: 3.93 - 5.25 10*6/?L. The reference range was not used to interpret this result as normal/abnormal. HGB (test code = 718-7) 11.5 g/dL 11.6-15 L HCT (test code = 4544-3) 34.7 % 35.7-45.2 L MCV (test code = 787-2) 89.9 fL 80.6-95.5 MCH (test code = 785-6) 29.8 pg 25.9-32.8 MCHC (test code = 786-4) 33.1 g/dL 31.6-35.1 RDW-SD (test code = 98618-5) 39.9 fL 39-49.9 RDW-CV (test code = 788-0) 12.1 % 12-15.5 PLT (test code = 777-3) See_Comment [Automated messa ge] The system which generated this result transmitted reference range: 166 - 358 10*3/?L. The reference range was not used to interpret this result as normal/abnormal. MPV (test code = 10248-4) 9.2 fL 9.5-12.9 L NRBC/100 WBC (test code = 1077423140) See_Comment [Automated me ssage] The system which generated this result transmitted reference range: 0.0 - 10.0 /100 WBCs. The reference range was not used to interpret this result as normal/abnormal. NRBC x10^3 (test code = 4957369758) <0.01 See_Comment [Automated messa ge] The system which generated this result transmitted reference range: 10*3/?L. The reference range was not used to interpret this result as normal/abnormal. GRAN MAT (NEUT) % (test code = 770-8) 58.5 % IMM GRAN % (test code = 6032155243) 0.30 % LYMPH % (test code = 736-9) 30.8 % MONO % (test code = 5905-5) 6.3 % EOS % (test code = 713-8) 3.1 % BASO % (test code = 706-2) 1.0 % GRAN MAT x10^3(ANC) (test code = 8082193273) 5.54 10*3/uL 1.88-7.09 IMM GRAN x10^3 (test code = 9997514196) 0.03 10*3/uL 0-0.06 LYMPH x10^3 (test code = 731-0) 2.92 10*3/uL 1.32-3.29 MONO x10^3 (test code = 742-7) 0.60 10*3/uL 0.33-0.92 EOS x10^3 (test code = 711-2) 0.29 10*3/uL 0.03-0.39 BASO x10^3 (test code = 704-7) 0.09 10*3/uL 0.01-0.07 H Lab Interpretation (test code = 05244-4) Abnormal [facility] [id number] 14:03:00* Test Item Value Reference Range Interpretation Comme nts POCT PREG (test code = 1605) Negative On board controls acceptable with C Line (test code = 3574) Yes POCT PREG LOT # (test code = 3575) POCT PREG TEST DATE ( test code = 3576) Lab Interpretation (test cod e = 45868-2) Normal [facility] [id number] 22:54:00* Test Item Value Reference Range Interpretation Comme nts POCT PREG (test code = 1605) Negative On board controls acceptable with C Line (test code = 3574) Yes POCT PREG LOT # (test code = 3575) POCT PREG TEST DATE ( test code = 3576) [facility] [id number] 22:54:00* Test Item Value Reference Range Interpretation Comme nts POCT PREG (test code = 1605) Negative On board controls acceptable with C Line (test code = 3574) Yes POCT PREG LOT # (test code = 3575) POCT PREG TEST DATE ( test code = 3576) [facility], COVID 19 Antigen + Flu by [facility], COVID 19 Antigen + Flu by Evette History and Physical Notes Date/Time Note Provider Source 2024-06-13 23:46:30 Medicine History & Physical Date of Service: 06/13/2024 Pt presents from: Home CC: Shortness of breath History of Present Illness: Gerard Leung is a 39 year old female with past md hx including anemia, prior history of seizures and anxiety that presents to the ED for shortness of breath. Patient was recently admitted status post wasp sting where she was treated for possible anaphylaxis. Since discharge she was doing well states going back today to work where she developed nausea with vomiting and headache also complains of chest tightness associated with anxiety/panic attack. She did have a subjective fever. She does state having a history of nonproductive cough increasing shortness of breath today and decided to come to ED for evaluation. In the emergency department she was noted to be hemodynamically stable satting 100% on room air. She is afebrile. Labs reveal no leukocytosis.. Due to her prior history she was started on steroids along with Benadryl hospitalist call for admission. On my exam she is alert complaining of above. She states after admission to the hospital her symptoms have resolved. States compliance with home medications denies smoking drinking or drugs. ROS: Pt denies F / D / Constipation / CP / Abd pain / dysuria / hematuria / melena / hematochezia / rashes / suicidal or homicidal ideation / All others negative Review of Hx/Meds: PMH: Past Medical History: Diagnosis Date Abnormal uterine bleeding Anemia Breast disorder Tenderness and leaking BV (bacterial vaginosis) 04/17/2019 Heart murmur Menstrual disorder Pap smear abnormality of cervix HPV Seizures Last 2 years ago PSH: has a past surgical history that includes tubal ligation; lap w/tot hysterect <250gm w/tube/ovary (01/03/2020); removal of fallopian tube (01/03/2020); cystoscopy (01/03/2020); laparoscopic total abdominal hysterectomy (N/A, 01/03/2020); cystoscopy (N/A, 01/03/2020); and salpingectomy (Bilateral, 01/03/2020). Family Hx: Noncontributory unless mentioned above Social History Tobacco Use Smoking status: Never Smokeless tobacco: Never Tobacco comments: 1/2 ppd Substance Use Topics Alcohol use: Not Currently Drug use: Never Current Scheduled Medications Current IV Current Facility-Administered Medications: acetaminophen (TYLENOL) tablet 650 mg, 650 mg, Oral, Q6HPRN, Michelle Toney MD busPIRone (BUSPAR) tablet 5 mg, 5 mg, Oral, BID, Michelle Toney MD, 5 mg at 06/13/241951 diazePAM (VALIUM) tablet 5 mg, 5 mg, Oral, BIDPRN, Michelle Toney MD enoxaparin (LOVENOX) injection 40 mg, 40 mg, Subcutaneous, DAILY, Michelle Toney MD, 40 mg at 06/13/24 183 HYDROcodone-acetaminophen (NORCO 5) tablet 1 tablet, 1 tablet, Oral, Q6HPRN, Michelle Toney MD, 1 tablet at 06/13/24 1356 hydrOXYzine (ATARAX) tablet 10 mg, 10 mg, Oral, Q6HPRN, Dakota James DO morpHINE (4 mg/mL) injection 4 mg, 4 mg, Slow IV Push, Q4HPRN, Michelle Toney MD, 4 mg at 06/13/241951 ondansetron (ZOFRAN (PF)) injection 4 mg, 4 mg, Slow IV Push, Q6HPRN, Michelle Toney MD pantoprazole (PROTONIX) EC tablet 40 mg, 40 mg, Oral, QAM-0600, Dakota James DO [START ON 06/14/2024] predniSONE (DELTASONE) tablet 40 mg, 40 mg, Oral, DAILY, Michelle Toney MD Objective: Vitals: Vitals: 06/13/24 1353 06/13/24 1525 06/13/24 1942 06/13/24 2305 BP: 119/76 107/61 125/73 135/79 BP Location: Left arm Left arm Patient Position: Supine Supine Pulse: 72 72 67 65 Resp: 16 16 18 20 Temp: 36.3 ?C (97.3 ?F) 36.2 ?C (97.2 ?F) 36.3 ?C (97.3 ?F) TempSrc: Temporal Artery SpO2: 100% 97% 97% 97% Weight: Height: I/O's: Intake/Output Summary (Last 24 hours) at 06/13/2024 2346 Last data filed at 06/13/2024 1725 Gross per 24 hour Intake 530 ml Output -- Net 530 ml Physical Exam: General: NAD, Alert, lying in bed comfortable, cogent speech, obesse HEENT: anicteric, oral mucosa dry, no stridor Neck: supple, no JVD, no bruits. Chest: CTA B/L, no W/R/C. Heart: RRR, S1/S2, no M/G/R Abdominal: BS normoactive, soft, ND, NT. Skin/Extremities: no rash, no cyanosis, warm and dry, no LE edema. Neurological: CN II-XII grossly intact, no focal deficits. Labs: BMP:BMP NA (mmol/L) Date Value 06/08/2024 138 06/07/2024 137 08/04/2021 139 01/21/2021 139 10/20/2020 140 K (mmol/L) Date Value 06/08/2024 4.2 06/07/2024 4.3 08/04/2021 4.2 01/21/2021 3.9 10/20/2020 3.8 CALCIUM (mg/dL) Date Value 06/08/2024 8.8 06/07/2024 8.6 08/04/2021 9.4 01/21/2021 9.4 10/20/2020 9.2 CL (mmol/L) Date Value 06/08/2024 104 06/07/2024 104 08/04/2021 109 (H) 01/21/2021 105 10/20/2020 106 BUN (mg/dL) Date Value 06/08/2024 14 06/07/2024 15 08/04/2021 10 01/21/2021 14 10/20/2020 15 CREATININE (mg/dL) Date Value 06/08/2024 0.67 06/07/2024 0.75 08/04/2021 0.57 01/21/2021 0.69 10/20/2020 0.65 GLUCOSE (mg/dL) Date Value 06/08/2024 147 (H) 06/07/2024 121 (H) 08/04/2021 100 01/21/2021 96 10/20/2020 108 CO2 TOTAL (mmol/L) Date Value 06/08/2024 25 06/07/2024 25 08/04/2021 20 (L) 01/21/2021 25 10/20/2020 25 CBC:CBC WBC (10*3/?L) Date Value 06/08/2024 9.73 RBC (10*6/?L) Date Value 06/08/2024 4.19 PLT (10*3/?L) Date Value 06/08/2024 357 HGB (g/dL) Date Value 06/08/2024 12.2 HCT (%) Date Value 06/08/2024 37.7 BMP:Hepatic Function Panel ALBUMIN (g/dL) Date Value 06/07/2024 4.1 T PROTEIN (g/dL) Date Value 06/07/2024 7.4 TOTAL BILI (mg/dL) Date Value 06/07/2024 0.7 BILI UNCON (mg/dL) Date Value 10/20/2020 0.3 BILI CONJ (mg/dL) Date Value 10/20/2020 0.0 ALTv (U/L) Date Value 06/07/2024 18 AST(SGOT) (U/L) Date Value 06/07/2024 21 ALK PHOS (U/L) Date Value 06/07/2024 92 Troponin: There are no current results on file for these tests and/or test for 1 year. I have reviewed all relevant labs Imaging: No results found. Assessment and plan: Principal Problem: Allergic reaction, initial encounter Shortness of breath/upper airway discomfort: Noted recent nausea and vomiting associated going back to work denies any chemical exposure or smoke exposure. Unclear etiology would rule out upper airway irritation secondary to stomach acid - Start PPI twice daily - Plan ENT follow-up outpatient Anxiety: Poorly controlled noted allergies - Continue Valium - Start Atarax ? Allergy: - Continue steroids DVT prophylaxis: Lovenox Advanced Care Planning ( Z71.89 ) Above assessment and plan discussed at length with patient, patient expressed full understanding. Questions and concerns addressed I spent 1 minutes discussing the advance care planning. 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 Patient states she had gone outside to check on her , who had just got stung by a wasp. When she went out she got stung by a wasp as well. However, the stinger stayed inside her arm and they noticed that one of her veins on her left upper arm ruptured. Her gave her some Benadryl, and they were able to remove the stinger. Shortly after that, the patient fell asleep. She woke up about an hour later in severe pain in the left arm. As the pain was not subsiding, her brought her into the emergency room. In the emergency room, patient was given an injection from an EpiPen pen. Patient became short of breath and had nausea and vomiting. Patient felt worse after the EpiPen, and the physician decided to admit her to the hospital for observation. At this time, patient will be admitted for further evaluation. PAST MEDICAL HISTORY Past Medical History: Diagnosis Date Abnormal uterine bleeding Anemia Breast disorder Tenderness and leaking BV (bacterial vaginosis) 04/17/2019 Heart murmur Menstrual disorder Pap smear abnormality of cervix HPV Seizures Last 2 years ago PAST SURGICAL HISTORY Past Surgical History: Procedure Laterality Date CYSTOSCOPY 01/03/2020 CYSTOSCOPY N/A 01/03/2020 Surgeon: Sondra Chavira MD; Location: [facility] OR [facility] LAP W/TOT HYSTERECT <250GM W/TUBE/OVARY 01/03/2020 LAPAROSCOPIC TOTAL ABDOMINAL HYSTERECTOMY N/A 01/03/2020 Surgeon: Sondra Chavira MD; Location: [facility] OR [facility] REMOVAL OF FALLOPIAN TUBE 01/03/2020 SALPINGECTOMY Bilateral 01/03/2020 Surgeon: Sondra Chavira MD; Location: [facility] OR [facility] TUBAL LIGATION ALLERGIES Allergies Allergen Reactions Zoloft [Sertraline] Unknown - See comments Seizures MEDICATIONS Current home medication list reviewed: Current Discharge Medication List STOP taking these medications ondansetron 4 mg disintegrating tablet Comments: Reason for Stopping: acetaminophen-codeine 300-30 mg tablet Comments: Reason for Stopping: ibuprofen 600 mg tablet Comments: Reason for Stopping: diazePAM 2 mg tablet Comments: Reason for Stopping: ibuprofen 800 mg tablet Comments: Reason for Stopping: dicyclomine (BENTYL) 10 mg capsule Comments: Reason for Stopping: traMADol 50 mg tablet Comments: Reason for Stopping: ibuprofen 600 mg tablet Comments: Reason for Stopping: traMADol 50 mg tablet Comments: Reason for Stopping: BUPROPION HCL ORAL Comments: Reason for Stopping: linaCLOtide (LINZESS) 72 mcg Cap Comments: Reason for Stopping: OMEPRAZOLE ORAL Comments: Reason for Stopping: FAMILY HISTORY Family History Problem Relation Age of Onset Depression Father Suicide Hypertension Father Neurological Brother Seizures Arthritis NoFHx Asthma NoFHx defects NoFHx Genetic NoFHx Breast Cancer NoFHx Colon Cancer NoFHx Ovarian Cancer NoFHx Uterine Cancer NoFHx Cancer NoFHx Diabetes NoFHx Heart NoFHx High cholesterol NoFHx Mental retardation NoFHx Osteoporosis NoFHx Psychiatry NoFHx SOCIAL HISTORY Social History Socioeconomic History Marital status: Tobacco Use Smoking status: Every Day Types: Cigarettes Smokeless tobacco: Never Tobacco comments: 1/2 ppd Substance and Sexual Activity Alcohol use: Not Currently Drug use: Never Sexual activity: Yes Partners: Male control/protection: Surgical Social History Narrative Denies domestic violence or abuse REVIEW OF SYSTEMS 10 systems negative except per HPI PHYSICAL EXAMINATION BP (!) 126/92 (BP Location: Right arm) | Pulse 65 | Temp 36.2 ?C (97.1 ?F) (Temporal Artery) | Resp 13 | Ht 1.6 m (5' 3") | Wt 83.5 kg (184 lb) | SpO2 100% | BMI 32.59 kg/m? General: No acute distress HEENT: Normal oral mucosa, anicteric sclerae, NCAT Cardiovascular: RRR Lungs: Symmetric expansion, clear bilaterally Abdomen: Soft, NTND Musculoskeletal: No synovitis, normal muscle mass Genitourinary: Deferred Skin: Erythema on the left upper arm which extends past the crease of the left elbow Extremities: No clubbing, no cyanosis, no lower extremity edema Neuro: AAOx3, no focal deficits Psych: Normal affect LABS - reviewed pertinent labs as below: CBC BMP PT/INR WBC (10*3/?L) Date Value 06/07/2024 10.60 NA (mmol/L) Date Value 06/07/2024 137 No results found for: "PT" RBC (10*6/?L) Date Value 06/07/2024 4.32 K (mmol/L) Date Value 06/07/2024 4.3 INR (no units) Date Value 10/20/2020 1.1 PLT (10*3/?L) Date Value 06/07/2024 357 CALCIUM (mg/dL) Date Value 06/07/2024 8.6 HGB (g/dL) Date Value 06/07/2024 13.0 CL (mmol/L) Date Value 06/07/2024 104 aPTT HCT (%) Date Value 06/07/2024 39.6 BUN (mg/dL) Date Value 06/07/2024 15 APTT Patient (Seconds) Date Value 10/20/2020 31 CREATININE (mg/dL) Date Value 06/07/2024 0.75 IMAGING - reviewed, pertinent results as below: No results found for this visit on 06/07/24. ASSESSMENT: 1. Anaphylaxis from wasp sting 2. History of anemia PLAN: 1. Anaphylaxis from wasp sting; patient will continue IV steroids along with IV Benadryl and Pepcid. Monitor the area of erythema. Monitor patient CBC. Patient will be admitted to the hospital for observation. DVT prophylaxis: enoxaparin Stress ulcer prophylaxis: pantoprazole Code status: FULL Advanced Care Planning (Z71.89) Above assessment and plan discussed at length with patient, patient expressed full understanding. Questions and concerned addressed. 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
[2024-10-04 00:10] LABS: SARS-CoV-2 Antigen CONTROL BLUE LINE VIS/BG OK; SARS-CoV-2 Antigen Rapid Res Negative (Negative)
[2024-10-04] MEDS ORDERED: NA CHLORIDE 0.9% 1,000 ML ONE ×2 (01:16→02:52)
[2024-10-04] MEDS ORDERED: KETOROLAC 30 MG/ML INJ ONE (01:16)
[2024-10-04] MEDS ORDERED: AZITHROMYCIN 250 MG TAB ONE (01:16)
[2024-10-04] MEDS ORDERED: ONDANSETRON 4 MG/2 ML VIAL ONE (01:16)
[2024-10-04] MEDS ORDERED: MECLIZINE HCL 12.5 MG TAB ONE (01:16)
[2024-10-04 01:56] LABS: Absolute Basophils 0.1 K/uL (0-0.5); Absolute Eosinophils 0.1 K/uL (0-0.5); Absolute Lymphocytes (CBC) 2.4 K/uL (0.7-4.9); Absolute Monocytes 0.5 K/uL (0.1-1.3); Absolute Neutrophil 9.4 K/uL (1.8-8.0); Basophils % 0.8 % (0-1.3); Eosinophils % 0.4 % (0-4.4); Hematocrit 34.2 % (36.0-45.0); Hemoglobin 11.1 g/dL (12.0-15.0); Lymphocytes % 19.2 % (15.3-44.8); MCH 29.1 pg (27.0-35.0); MCHC 32.4 g/dL (32.0-36.0); MCV 89.7 fL (80-100); MPV 8.1 fL (7.6-11.3); Monocytes % 3.6 % (3.3-12.3); Platelets 313 thou/uL (152-406); RBC Red Blood Cell Count 3.81 M/uL (3.86-4.86); Red Cell Distribution Width 12.7 % (12.1-15.2)
[2024-10-04 02:05] LABS: Albumin 3.6 g/dL (3.4-5.0); Albumin/Globulin Ratio 1.1 (1.1-1.8); Bilirubin Total 0.2 mg/dL (0.2-1.0); Globulin 3.2 g/dL (2.3-3.5); Protein, Total 6.8 g/dL (6.4-8.2)
[2024-10-04] MEDS ORDERED: METOCLOPRAMIDE 10 MG/2mL INJ ONE (02:52)
[2024-10-04] MEDS ORDERED: HYDROCODONE/APAP 5/325 MG TAB ONE ×2 (02:52→02:59)
--- NOTE | 2024-10-04 03:31 | RAD REPORT ---
EXAM: CT Head Without Intravenous Contrast CLINICAL HISTORY: Dizziness. TECHNIQUE: Axial computed tomography images of the head/brain without intravenous contrast. Sagittal and coron al reformatted images were created and reviewed. This CT exam was performed using one or more of the following dose reduction techniques: automated exposure control, adjustment of the mA and/or kV according to patient size, and/or use of iterative reconstruction technique. COMPARISON: No relevant prior studies available. FINDINGS: Brain: Unremarkable. No hemorrhage. No significant white matter disease. No edema. Ventricles: Unremarkable. No ventriculomegaly. Bones/joints: Unremarkable. No acute fracture. Soft tissues: Unremarkable. Sinuses: Unremarkable as visualized. No acute sinusitis. Mastoid air cells: Unremarkable as visualized. No mastoid effusion. IMPRESSION: No acute intracranial or extra-axial abnormality. Electronically signed by: Kya Nicolas MD 10/04/2024 03:26 AM [facility] Due to temporary technical issues with the PACS/[employer] Interactive reporting system, reports are being beatriz d by the in-house radiologist without review as a courtesy to ensure prompt reporting the interpreting radiologist is fully responsible for the content of the report. Transcribed Date/Time: 10/04/2024 3:31 AM
[2024-10-04 03:32] LABS: C-Reactive Protein 10.4 mg/L (<3.00); T4,Total 7.9 ug/dL (4.8-13.9); Thyroid Stimulating Hormone 0.513 uIU/mL (0.358-3.740)
--- NOTE | 2024-10-04 04:53 | EDPHYS ---
Physician Documentation [facility] Name: Kelsi Leung Age: 39 yrs Sex: Female : 1985 Arrival Date: 10/03/2024 Time: 22:28 Bed 18 Private MD: ED Physician Naeem German HPI: 10/03 22:42 This 39 yrs old Female presents to ER via Unassigned with complaints of sp4 Dizziness, Ear Pain, Nausea, BLEEDING FROM EAR. 10/04 20:01 39-year-old female presents with dizziness, left ear pain, left ear drainage, sp4 nausea and feeling unwell. . Historical: - Allergies: 10/03 23:08 sertraline; vc1 - PMHx: 23:08 Colitis; Irritable bowel syndrome; vc1 - PSHx: 23:08 Total abdominal hysterectomy; vc1 - Immunization history:: Client reports having NOT received the Covid vaccine. Flu vaccine is not up to date. - Infectious Disease History:: Denies. - Social history:: Smoking status: Patient denies any tobacco usage or history of. - Family history:: not pertinent. ROS: 10/04 20:01 Constitutional: Negative for fever, chills, and weight loss, positive for dizziness, sp4 positive for earache, positive for nausea, positive for feeling unwell All other systems are negative, Exam: 20:01 Constitutional: This is a well developed, well nourished patient who is awake, alert, sp4 and in no acute distress. Head/Face: Normocephalic, atraumatic. Eyes: Pupils equal round and reactive to light, extra-ocular motions intact. Lids and lashes normal. Conjunctiva and sclera are not injected. Cornea within normal limits. Periorbital areas with no swelling, redness, or edema. ENT: Nares patent. No nasal discharge, no septal abnormalities noted. Tympanic membranes are opacified bilaterally, small amount of dry blood in left ear canal. Oropharynx with no redness, swelling, or masses, exudates, or evidence of obstruction, uvula midline. Mucous membranes moist. Neck: Trachea midline, no thyromegaly or masses palpated, and no cervical lymphadenopathy. Supple, full range of motion without nuchal rigidity, or vertebral point tenderness. Chest/axilla: Normal chest wall appearance and motion. Nontender with no deformity. No lesions are appreciated. Cardiovascular: Regular rate and rhythm with a normal S1 and S2. No gallops, murmurs, or rubs. Normal PMI, no JVD. No pulse deficits. Respiratory: Lungs have equal breath sounds bilaterally, clear to auscultation and percussion. No rales, rhonchi or wheezes noted. No increased work of breathing, no retractions or nasal flaring. Abdomen/GI: Soft, with normal bowel sounds. No distension or tympany. No guarding or rebound. No evidence of tenderness throughout. Back: No spinal tenderness. No costovertebral tenderness. Skin: Warm, dry with normal turgor. Normal color with no rashes, no lesions, and no evidence of cellulitis. MS/ Extremity: Pulses equal, no cyanosis. Neurovascular intact. Full, normal range of motion. Neuro: Awake and alert, GCS 15, oriented to person, place, time, and situation. Cranial nerves II-XII grossly intact. Motor strength 5/5 in all extremities. Sensory grossly intact. Psych: Awake, alert, with orientation to person, place and time. Behavior, mood, and affect are within normal limits Vital Signs: 10/03 23:07 BP 136 / 86; Pulse 73; Resp 16; Temp 98.6; Pulse Ox 100% ; Weight 81.65 kg; Height 5 vc1 ft. 3 in. ; Pain 07/02; 10/04 02:39 BP 116 / 75; Pulse 64; Resp 18 S; Pulse Ox 100% on R/A; br2 03:43 BP 96 / 56; Pulse 57; Resp 18; Pulse Ox 97% on R/A; br2 10/03 23:07 Body Mass Index 31.89 (81.65 kg, 160.02 cm) vc1 10/03 23:07 Pain Scale: Adult vc1 [place] Coma Score: 20:01 Eye Response: spontaneous(4). Motor Response: obeys commands(6). Verbal Response: sp4 oriented(5). Total: 15. MDM: 10/03 23:01 Medical Screening Exam initiated sp4 10/04 04:46 ED course: EXAM: XR Chest, 2 Views CLINICAL HISTORY: Chest pain. TECHNIQUE: Frontal and sp4 lateral views of the chest. COMPARISON: No relevant prior studies available. FINDINGS: Lungs: Unremarkable. No consolidation. Pleural space: Unremarkable. No pneumothorax. Heart: Unremarkable. No cardiomegaly. Mediastinum: Unremarkable. Normal mediastinal contour. Bones/joints: Remote right clavicular fracture. IMPRESSION: No acute disease. . ED course: EXAM: CT Head Without Intravenous Contrast CLINICAL HISTORY: Dizziness. TECHNIQUE: Axial computed tomography images of the head/brain without intravenous contrast. Sagittal and coronal reformatted images were created and reviewed. This CT exam was performed using one or more of the following dose reduction techniques: automated exposure control, adjustment of the mA and/or kV according to patient size, and/or use of iterative reconstruction technique. COMPARISON: No relevant prior studies available. FINDINGS: Brain: Unremarkable. No hemorrhage. No significant white matter disease. No edema. Ventricles: Unremarkable. No ventriculomegaly. Bones/joints: Unremarkable. No acute fracture. Soft tissues: Unremarkable. Sinuses: Unremarkable as visualized. No acute sinusitis. Mastoid air cells: Unremarkable as visualized. No mastoid effusion. IMPRESSION: No acute intracranial or extra-axial abnormality. . 20:04 Differential diagnosis: cardiac arrhythmia, near-syncope, sepsis, syncope, vertigo. sp4 Data reviewed: vital signs, nurses notes, lab test result(s), radiologic studies, CT scan, plain films. 20:04 Consideration of Admission/Observation Escalation of care including sp4 admission/observation considered. 10/03 23:09 Order name: Flu; Complete Time: 02:38 vc1 10/03 23:09 Order name: SARS RAPID; Complete Time: 02:38 vc1 10/03 23:09 Order name: Strep; Complete Time: 02:38 vc1 10/03 23:34 Order name: CBC with Diff; Complete Time: 02:38 sp4 10/03 23:34 Order name: CMP; Complete Time: 02:38 sp4 10/04 00:08 Order name: Throat Culture EDMS 10/04 02:47 Order name: CRP; Complete Time: 04:43 sp4 10/04 02:47 Order name: TSH; Complete Time: 04:43 sp4 10/04 02:47 Order name: T4,Total; Complete Time: 04:43 sp4 10/04 02:45 Order name: CT Head Brain wo Cont; Complete Time: 04:43 sp4 10/04 02:47 Order name: Chest Pa And Lat (2 Views) XRAY sp4 10/03 23:34 Order name: IV Saline Lock; Complete Time: 03:21 sp4 10/03 23:34 Order name: Labs collected and sent; Complete Time: 03:21 sp4 10/04 01:23 Order name: Misc. Order: recollect all labs; Complete Time: 02:57 kmf Administered Medications: 01:33 Drug: Ondansetron IVP 8 mg IVP once; over 2 minutes Route: IVP; Site: left antecubital; br2 02:00 Follow up: Response: No adverse reaction br2 01:33 Drug: NS 0.9% IV 1000 ml IV at 1 bolus Per protocol; to be given as a bolus over 60 br2 minutes Route: IV; Rate: 1 bolus; Site: left antecubital; 02:30 Follow up: Response: No adverse reaction; IV Status: Completed infusion; IV Intake: br2 1000ml 01:33 Drug: Meclizine PO 25 mg PO once Route: PO; br2 02:00 Follow up: Response: No adverse reaction br2 01:33 Drug: AZITHromycin PO 500 mg PO once Route: PO; br2 02:00 Follow up: Response: No adverse reaction br2 01:34 Drug: TORadol - Ketorolac IVP 30 mg IVP once Route: IVP; Site: left antecubital; br2 02:00 Follow up: Response: No adverse reaction br2 02:56 Drug: metoCLOPramide IVP 10 mg IVP once; over 1 to 2 minutes Route: IVP; Site: left br2 antecubital; 03:30 Follow up: Response: No adverse reaction br2 02:57 Drug: NS 0.9% IV 1000 ml IV at 1000 ml once; to be given as a bolus over 60 minutes br2 Route: IV; Rate: 1000 ml; Site: left antecubital; 04:00 Follow up: Response: No adverse reaction; IV Status: Completed infusion; IV Intake: br2 1000ml 02:57 Drug: HYDROcodone-acetaminophen PO 5 mg-325 mg 2 tabs PO once Route: PO; br2 03:30 Follow up: Response: No adverse reaction br2 Disposition: 20:05 Chart complete. sp4 Disposition Summary: 10/04/24 04:51 Discharge Ordered Notes: Location: Home sp4 Problem: new sp4 Symptoms: have improved sp4 Condition: Stable sp4 Diagnosis - Dizziness and giddiness sp4 - Other infective otitis externa, left ear sp4 - Nausea and vomiting, Acute Gastroenteritis sp4 Followup: sp4 - With: Private Physician - When: 7 - 10 days - Reason: Recheck today's complaints Discharge Instructions: - Discharge Summary Sheet sp4 - Clear Liquid Diet, Adult, [id number] sp4 Forms: - Work release form sp4 - Patient Portal Instructions sp4 Prescriptions: - Ibuprofen 800 mg Oral Tablet - take 1 tablet ORAL route every 8 hours As needed take with food; 30 tablet; sp4 Refills: 0, Product Selection Permitted - Meclizine 25 mg Oral Tablet - take 1 tablet ORAL route every 8 hours As needed; 30 tablet; Refills: 0, sp4 Product Selection Permitted - Zithromax Z-Wilder 250 mg Oral Tablet - take 1 tablet ORAL route as directed for 5 days Day 1 - take two (2) tablets sp4 one time. Day 2, 3, 4 , 5 take one (1) tablet once daily.; 6 tablet; Refills: 0, Product Selection Permitted - ondansetron 8 mg Oral Tablet,disintegrating - take 1 tablet ORAL route every 8 hours PRN nausea; 30 tablet; Refills: 0, sp4 Product Selection Permitted Signatures: Dispatcher [employer] EDMS Delfina Harding RN RN vc1 Naeem German MD MD sp4 Myriam Santana [facility] Lorin Rodriguez, RN RN br2 Corrections: (The following items were deleted from the chart) 10/03 23:35 23:35 CBC+H.LAB.BRZ ordered. EDMS EDMS 23:35 23:35 COMPREHENSIVE METABOLIC PANEL+C.LAB.BRZ ordered. EDMS EDMS 10/04 02:46 02:46 Head Brain Wo Cont+CT.RAD.BRZ ordered. EDMS EDMS 02:47 02:47 C-REACTIVE PROTEIN+C.LAB.BRZ ordered. EDMS EDMS 02:47 02:47 THYROID STIMULAT HORMONE+C.LAB.BRZ ordered. EDMS EDMS 02:47 02:47 T4,TOTAL+C.LAB.BRZ ordered. EDMS EDMS 02:47 02:47 Urinalysis W/Microscopic+U.LAB.BRZ ordered. EDMS EDMS
--- NOTE | 2024-10-04 04:53 | ER ---
Nurse's Notes [facility] Name: Kelsi Leung Age: 39 yrs Sex: Female : 1985 Arrival Date: 10/03/2024 Time: 22:28 Bed 18 Private MD: Diagnosis: Dizziness and giddiness;Other infective otitis externa, left ear;Nausea and vomiting, Acute Gastroenteritis Presentation: 10/03 23:07 Chief complaint: Patient states: Stiff neck, sore throat, bleeding ears, dizzy. vc1 Coronavirus screen: Client denies travel out of the [place] in the last 14 days. Ebola Screen: Patient negative for fever greater than or equal to 101.5 degrees Fahrenheit, and additional compatible Ebola Virus Disease symptoms Patient denies exposure to infectious person. Patient denies travel to an Ebola-affected area in the 21 days before illness onset. No symptoms or risks identified at this time. Initial Sepsis Screen: Does the patient meet any 2 criteria? No. Patient's initial sepsis screen is negative. Does the patient have a suspected source of infection? No. Patient's initial sepsis screen is negative. Risk Assessment: Do you want to hurt yourself or someone else? Patient reports no desire to harm self or others. Onset of symptoms was October 01, 2024. Care prior to arrival: None. Activity prior to arrival: None. Mechanism of Injury: No Mechanism of Injury. 23:07 Method Of Arrival: Ambulatory vc1 23:07 Acuity: CAMER[place] 4 vc1 Triage Assessment: 23:10 General: Appears in no apparent distress. uncomfortable, ill, slender, well groomed, vc1 well developed, well nourished, Behavior is calm, cooperative, appropriate for age. Pain: Complains of pain in throat and ears. EENT: Reports pain when swallowing pain and bleeding from ears. EENT: Reports nasal congestion nasal discharge. Neuro: Level of Consciousness is awake, alert, obeys commands, Oriented to person, place, time, situation, Appropriate for age. Cardiovascular: Capillary refill < 3 seconds Patient's skin is warm and dry. Respiratory: Reports cough that is Airway is patent Respiratory effort is even, unlabored, Respiratory pattern is regular, symmetrical. GI: No deficits noted. No signs and/or symptoms were reported involving the gastrointestinal system. : No deficits noted. No signs and/or symptoms were reported regarding the genitourinary system. Derm: Skin is intact, is healthy with good turgor, Skin is dry, Skin is normal, Skin temperature is warm. Musculoskeletal: Circulation, motion, and sensation intact. Range of motion: intact in all extremities. Historical: - Allergies: 23:08 sertraline; vc1 - PMHx: 23:08 Colitis; Irritable bowel syndrome; vc1 - PSHx: 23:08 Total abdominal hysterectomy; vc1 - Immunization history:: Client reports having NOT received the Covid vaccine. Flu vaccine is not up to date. - Infectious Disease History:: Denies. - Social history:: Smoking status: Patient denies any tobacco usage or history of. - Family history:: not pertinent. Screenin:09 [facility] ED Fall Risk Assessment (Adult) History of falling in the last 3 months, vc1 including since admission No falls in past 3 months (0 pts) Confusion or Disorientation No (0 pts) Intoxicated or Sedated No (0 pts) Impaired Gait No (0 pts) Mobility Assist Device Used No (0 pt) Altered Elimination No (0 pt) Score/Fall Risk Level 0 - 2 = Low Risk Oriented to surroundings, Maintained a safe environment, Educated pt \T\ family on fall prevention, incl call for assistance when getting out of bed. Abuse screen: Denies threats or abuse. Nutritional screening: No deficits noted. Tuberculosis screening: No symptoms or risk factors identified. Assessment: 10/04 01:25 Reassessment: Patient and/or family updated on plan of care and expected duration. Pain br2 level reassessed. Patient is alert, oriented x 3, equal unlabored respirations, skin warm/dry/pink. General: Appears uncomfortable, Behavior is calm, cooperative. Pain: Complains of pain in left ear Pain does not radiate. Pain currently is 10 out of 10 on a pain scale. Neuro: [place] Agitation-Sedation Scale (RASS): 0 - Alert and Calm Level of Consciousness is awake, alert, obeys commands, Oriented to person, place, time, situation. Cardiovascular: Capillary refill < 3 seconds. Respiratory: Airway is patent Respiratory effort is even, unlabored, Respiratory pattern is regular, symmetrical. GI: No signs and/or symptoms were reported involving the gastrointestinal system. : No signs and/or symptoms were reported regarding the genitourinary system. EENT: Reports nasal congestion pain LEFT EAR PAIN WITH BLEEDING DIRECTOR OF BLOOD. Derm: No signs and/or symptoms reported regarding the dermatologic system. Musculoskeletal: Capillary refill < 3 seconds, Range of motion: intact in all extremities. 03:01 Reassessment: No changes from previously documented assessment. Patient and/or family br2 updated on plan of care and expected duration. Pain level reassessed. Patient is alert, oriented x 3, equal unlabored respirations, skin warm/dry/pink. Vital Signs: 10/03 23:07 BP 136 / 86; Pulse 73; Resp 16; Temp 98.6; Pulse Ox 100% ; Weight 81.65 kg; Height 5 vc1 ft. 3 in. ; Pain 10; 10/04 02:39 BP 116 / 75; Pulse 64; Resp 18 S; Pulse Ox 100% on R/A; br2 03:43 BP 96 / 56; Pulse 57; Resp 18; Pulse Ox 97% on R/A; br2 10/03 23:07 Body Mass Index 31.89 (81.65 kg, 160.02 cm) vc1 12 23:07 Pain Scale: Adult vc1 [place] Coma Score: 20:01 Eye Response: spontaneous(4). Motor Response: obeys commands(6). Verbal Response: sp4 oriented(5). Total: 15. ED Course: 10/03 22:31 Patient arrived in ED. [id number] 22:42 Naeem German MD is Attending Physician. sp4 23:08 Triage completed. vc1 23:09 Arm band placed on right wrist. vc1 23:09 Patient has correct armband on for positive identification. Bed in low position. Call br2 light in reach. Provided Education on: PLAN OF CARE. 23:44 Strep Sent. kl 23:44 SARS RAPID Sent. kl 23:44 Flu Sent. kl 10/04 01:11 Lorin Rodriguez RN is Primary Nurse. br2 03:10 CT Head Brain wo Cont In Process Unspecified. EDMS 03:14 Chest Pa And Lat (2 Views) XRAY In Process Unspecified. EDMS 05:00 No provider procedures requiring assistance completed. IV discontinued, intact, br2 bleeding controlled, No redness/swelling at site. Pressure dressing applied. Administered Medications: 01:33 Drug: Ondansetron IVP 8 mg IVP once; over 2 minutes Route: IVP; Site: left antecubital; br2 02:00 Follow up: Response: No adverse reaction br2 01:33 Drug: NS 0.9% IV 1000 ml IV at 1 bolus Per protocol; to be given as a bolus over 60 br2 minutes Route: IV; Rate: 1 bolus; Site: left antecubital; 02:30 Follow up: Response: No adverse reaction; IV Status: Completed infusion; IV Intake: br2 1000ml 01:33 Drug: Meclizine PO 25 mg PO once Route: PO; br2 02:00 Follow up: Response: No adverse reaction br2 01:33 Drug: AZITHromycin PO 500 mg PO once Route: PO; br2 02:00 Follow up: Response: No adverse reaction br2 01:34 Drug: TORadol - Ketorolac IVP 30 mg IVP once Route: IVP; Site: left antecubital; br2 02:00 Follow up: Response: No adverse reaction br2 02:56 Drug: metoCLOPramide IVP 10 mg IVP once; over 1 to 2 minutes Route: IVP; Site: left br2 antecubital; 03:30 Follow up: Response: No adverse reaction br2 02:57 Drug: NS 0.9% IV 1000 ml IV at 1000 ml once; to be given as a bolus over 60 minutes br2 Route: IV; Rate: 1000 ml; Site: left antecubital; 04:00 Follow up: Response: No adverse reaction; IV Status: Completed infusion; IV Intake: br2 1000ml 02:57 Drug: HYDROcodone-acetaminophen PO 5 mg-325 mg 2 tabs PO once Route: PO; br2 03:30 Follow up: Response: No adverse reaction br2 Medication: 05:00 VIS not applicable for this client. br2 Intake: 02:30 IV: 1000ml; Total: 1000ml. br2 04:00 IV: 1000ml; Total: 2000ml. br2 Outcome: 04:51 Discharge ordered by spFrancine 05:00 Discharged to home ambulatory, br2 05:00 Condition: good 05:00 Discharge instructions given to patient, Instructed on discharge instructions, follow up and referral plans. Demonstrated understanding of instructions, follow-up care, Prescriptions given X 4, 06:05 Patient left the ED. br2 Signatures: Dispatcher [employer] Deanna Cano, RN RN kl Celestina Carmen [email or web address] Delfina Harding RN RN vc1 Naeem German MD MD sp4 Lorin Rodriguez RN RN br2
--- NOTE | 2024-10-04 05:38 | RAD REPORT ---
EXAM: XR Chest, 2 Views CLINICAL HISTORY: Chest pain. TECHNIQUE: Frontal and lateral views of the chest. COMPARISON: No relevant prior studies available. FINDINGS: Lungs: Unremarkable. No consolidation. Pleural space: Unremarkable. No pneumothorax. Heart: Unremarkable. No cardiomegaly. Mediastinum: Unremarkable. Normal mediastinal contour. Bones/joints: Remote right clavicular fracture. IMPRESSION: No acute disease. Electronically signed by: Kya Nicoals MD 10/04/2024 03:28 AM [facility] Due to temporary technical issues with the PACS/Tipbit reporting system, reports are being beatriz d by the in-house radiologist without review as a courtesy to ensure prompt reporting the interpreting radiologist is fully responsible for the content of the report. Transcribed Date/Time: 10/04/2024 5:37 AM
[2024-10-04 06:22] VITALS: TEMP 98.6
[2024-10-04 06:26] VITALS: BP 96/56; O2SAT 97
== END 2024-10-04 06:05 | disposition home or self-care (01) ==
LOC: ER 22:28
DX: H60.392 Other infective otitis externa, left ear (principal); K52.9 Noninfective gastroenteritis and colitis, unspecified; Z28.310 Unvaccinated for COVID-19; Z11.52 Encounter for screening for COVID-19
CPT/HCPCS: 96361; 87070; 85025; 36415; 87081; 84436; 84443; 80053; 86140; 87804 ×2; 70450; 71046; 96375; 96374; 99284; 87811; J8597; J2765; J2405; J7030 ×2

== ENCOUNTER 2024-12-31 23:33 | Emergency (ER) | payer OTHER ==
--- OUTSIDE RECORDS SUMMARY | 2024-12-31 23:41 | XMS REPORT | Continuity of Care Document ---
Author Name Unknown Address [address] [facility] [address] [place] [address] [facility] Address [address] [facility] 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 Role Phone Benny Smart Primary Care Physician [phone] Benny Smart Attending Clinician Unavailable SONDRA CHAVIRA Attending Clinician UnavailSONDRA Ervin Attending Clinician Unavaila doreen Doctor Unassigned, [place] Attending Clinician U lasha Rhodes RN, Yoli Enriquez Attending Clinician [phone] MICHELLE TONEY Attending Clinician Unavailable Derrick FRANKLIN, Breanna Narayanan Attending Clinician [phone] Michelle Toney MD Attending Clinician [phone] Aris Hill MD Attending Clinician [phone] Armond Moore DO Attending Clinician [phone] Trev PAC, K Sydni Attending Clinician [phone] Doctor Unassigned, [place] Attending Clinician U naintatumSandee Alexander DO Attending Clinician [phone] SANDEE GUILLEN Attending Clinician Unavailab Tim Sinha DO Attending Clinician [phone] Sergio FRANKLIN, Aris Attending Clinician [phone] Mary ANDERSEN, Li Attending Clinician Unavailable Isela CRAFT, Clarence Gurrola Attending Clinician [phone] Carmine FRANKLIN, Alyssa Muir Attending Clinician [phone] Sondra Chavira MD Attending Clinician [phone] Brent PASTRANA, Carmen Attending Clinician [phone] Pob, [facility] Attending Clinician Unavailernestina e Nurse, [facility] Attending Clinician Un available SONDRA CHAVIRA Admitting Clinician Unavaila MICHELLE Gallowya Admitting Clinician Unavailable Feng FRANKLIN, Michelle Admitting Clinician [phone] SANDEE GUILLEN Admitting Clinician Unavailab Sondra Witt MD Admitting Clinician [phone] Payers Payer Name Policy Type Policy Number Effective Date Expirati on Date Source [facility] [id number] 2016 00:00:00 90 Degree Benefits 53 [id number] 2023 00:00:00 [facility] [id number] [facility] [id number] [facility] [id number] [facility] [id number] [facility] [id number] [facility] Problems Condition Name Condition Details Condition Category Status Onset Date Resolution Date Last Treatment Date Treating Clinician Comments Source Allergic reaction, initial encounter Allergic reaction, initial encounter Disease Active 06-13 00:00: 00 [facility] Wasp sting, accidental or unintentio nal, initial encounter Wasp sting, accidental or unintentio nal, initial encounter Disease Active 8-16 00:00: 00 [facility] Status post laparoscop ic hysterecto my Status post laparoscop ic hysterecto my Disease Active 3-27 00:00: 00 [facility] BV (bacterial vaginosis) BV (bacterial vaginosis) Disease Active 04-17 00:00: 00 [facility] Cervical high risk human papillomav irus (HPV) DNA test positive Cervical high risk human papillomav irus (HPV) DNA test positive Disease Active 04-17 00:00: 00 Overview: Formattin g of this note might be different from the original. 04/10/19 - pap smear was normal but HPV 6 was positive. Started on DepoProve ra March 2019. [facility] Abdominal pain, generalize d Abdominal pain, generalize d Disease Active 04-10 00:00: 00 Overview: Formattin g of this note might be different from the original. Patient followed by GI in [facility] Menorrhagi a with regular cycle Menorrhagi a with regular cycle Disease Active 04-10 00:00: 00 [facility] Dysmenorrh ea Dysmenorrh ea Disease Active 04-10 00:00: 00 [facility] Menorrhagi a with regular cycle Menorrhagi [...] lorraine. Pathology benign with no pathology seen. [facility] [id number] Constipati on, unspecifie d constipati on type Problem Common [facility] [id number] GERD without esophagiti s Problem Common [facility] [id number] Hyperlipid emia, unspecifie d hyperlipid emia type Problem Common [facility] [id number] Loss of taste Problem [facility] [id number] Tobacco use disorder Problem [facility] [id number] Generalize d anxiety disorder Problem [facility] [id number] Primary insomnia Problem [facility] [id number] Migraine without aura and without status migrainosu s, not intractabl e Problem [facility] Spondylosi s Spondylosi s Problem [facility] [id number] Crohn's disease with complicati on, unspecifie d gastrointe stinal tract location Problem [facility] [id number] Autoimmune disease Problem [facility] [id number] Body mass index [BMI] 32.0-32.9, adult Problem [facility] [id number] Other obesity due to excess calories Problem [facility] Allergies, Adverse Reactions, Alerts Allergy Name Allergy Type Status Severity Reaction(s) Onset Date Inactive Date Treating Clinician Comments Source VENOM-WA SP DRUG INGREDI Active Swelling 06-13 00:00: 00 [facility] Venom-Wa sp Propensi ty to adverse reaction s Active Swelling 06-13 00:00: 00 [facility] SERTRALI NE DRUG INGREDI Active High Unknown-Cmnt 0 3-13 00:00: 00 [facility] sertrali ne sertrali ne Active Unknown [facility] NO KNOWN ALLERGIE S Drug Class Active [facility] Social History Social Habit Start Date Stop Date Quantity Comments Source Exposure to SARS-CoV-2 (event) Not sure [facility] acute hospital Sexual orientation U [facility] Sex Assigned At [facility] History of Tobacco Use [facility] Alcoholic beverage intake 2024-06-07 00:00:00 2024-06-07 00:00:00 Ex-drinker (finding) [facility] Alcohol intake 2021-08-04 00:00:00 2021-08-04 00:00:00 Ex-drinker (finding) [facility] History of Social function 2020-01-03 00:00:00 2020-01-03 00:00:00 [facility] Tobacco Comment 2019-12-31 00:00:00 2019-12-31 00:00:00 1/2 ppd [facility] Tobacco use and exposure 2019-12-31 00:00:00 2019-12-31 00:00:00 Smokeless tobacco non-user [facility] Smoking Status Start Date Stop Date Source Former Smoker 2024-12-26 00:00:00 2024-12-26 00:00:00 [facility] Never smoked tobacco [facility] Smokes tobacco daily 2019-12-31 00:00:00 [facility] Medications Ordered Medication Name Filled Medication Name Start Date Stop Date Current Medication? Ordering Clinician Indication Dosage Frequency Signature (SIG) Comments Components Source EPINEPHrine 0.3 MG/0.3ML EPINEPHrine 0.3 MG/0.3ML 06-18 00:00: 00 No EPINEPHrin e 0.3 MG/0.3ML predniSONE (DELTASONE) tablet 40 mg 06-15 01:00: 00 06-19 13:59 :00 No 40mg [facility] pantoprazol e 40 mg EC tablet 06-15 00:00: 00 06-26 04:59 :00 No [id number] 40mg Take 1 tablet by mouth every morning for 10 days. [facility] butalbital- acetaminoph en-caff (ESGIC) 50-325-40 mg tablet 1 tablet 06-14 19:45: 00 06-14 18:53 :00 No 1{tbl} 1 tablet, Oral, ONCE, 1 dose, On 06/14/24 at 1445, Routine [facility] pantoprazol e (PROTONIX) EC tablet 40 mg 06-14 04:15: 00 Yes 40mg 40 mg, Oral, QAM-0600, First dose on Catherine 06/13/24 at 2315, Until Discontinu ed, Routine [facility] hydrOXYzine (ATARAX) tablet 10 mg 06-14 04:10: 52 Yes 10mg 10 mg, Oral, Q6HPRN, Starting on Mon06/13/24 at 2310, Until Discontinu ed, Routine, Anxiety [facility] busPIRone (BUSPAR) tablet 5 mg 06-14 01:00: 00 Yes 5mg 5 mg, Oral, BID, First dose on Mon06/13/24 at 2000, Until Discontinu ed, [facility] famotidine (PEPCID AC) tablet 20 mg 06-14 01:00: 00 06-14 04:07 :36 No 20mg 20 mg, Oral, BID, First dose on Mon06/13/24 at 1999, Until Discontinu ed, Routine [facility] diphenhydrA MINE 50 mg capsule 06-14 00:00: 00 07-05 04:59 :00 No [id number] 50mg Take 1 capsule by mouth every 4 (four) hours as needed for Allergies or Itching for up to 20 days. [facility] acetaminoph en-caff-but albital (ESGIC) per capsule 06-14 00:00: 00 06-20 04:59 :00 No [id number] 1{capsu le} Take 1 capsule by mouth every 6 (six) hours as needed for Pain for up to 5 days. [facility] predniSONE 20 mg tablet 06-14 00:00: 00 06-19 04:59 :00 No [id number] 40mg Take 2 tablets by mouth in the morning for 4 days. [facility] enoxaparin (LOVENOX) injection 40 mg 06-13 22:00: 00 Yes 40mg 40 mg, Subcutaneo us, DAILY, First dose on Mon06/13/24 at 1700, Until Discontinu ed, Routine [facility] diphenhydrA MINE (BENADRYL) tablet 50 mg 06-13 17:00: 00 06-14 04:10 :32 No 50mg 50 mg, Oral, Q6H, First dose on Mon06/13/24 at 1200, Until Discontinu ed, Routine [facility] diazePAM (VALIUM) tablet 5 mg 06-13 15:15: 17 Yes 5mg 5 mg, Oral, BIDPRN, Starting on Mon06/13/24 at 1015, Until Discontinu ed, Routine, Anxiety [facility] ondansetron (ZOFRAN (PF)) injection 4 mg 06-13 15:14: 51 Yes 4mg [facility] morpHINE (4 mg/mL) injection 4 mg 06-13 15:14: 49 06-14 15:13 :49 No 4mg 4 mg, Slow IV Push, Q4HPRN, Starting on Mon06/13/24 at 1014, Until Mon06/14/24 at 1013, Routine, Pain (scale 7-10) [facility] HYDROcodone -acetaminop hen (NORCO 5) tablet 1 tablet 06-13 15:14: 31 06-15 15:13 :31 No 1{tbl} 1 tablet, Oral, Q6HPRN, Starting on Mon06/13/24 at 1014, Until Mon06/15/24 at 1013, Routine, Pain (scale 4-6) [facility] acetaminoph en (TYLENOL) tablet 650 mg 06-13 15:14: 25 Yes 650mg [facility] NaCl 0.9% (NS) bolus infusion 1,000 mL 06-13 13:30: 00 06-13 13:36 :00 No 1000mL at 999 mL/hr, 1,000 mL, IV Infusion, ONCE, 1 dose, On Mon06/13/24 at 0830, STAT [facility] methylpredn isolone sod succ (SOLU-MEDRO L) injection 125 mg 06-13 13:30: 00 06-13 12:52 :00 No 125mg 125 mg, Intravenou s, ONCE, 1 dose, On Mon06/13/24 at 0830, 2 mL [facility] diphenhydrA MINE (BENADRYL) injection 50 mg 06-13 12:45: 00 06-13 12:51 :00 No 50mg 50 mg, Intravenou s, ONCE, 1 dose, On Catherine 06/13/24 at 0745, [facility] famotidine (PEPCID (PF)) injection 20 mg 06-13 12:45: 00 06-13 12:51 :00 No 20mg 20 mg, Slow IV Push, ONCE, 1 dose, On Catherine 06/13/24 at 0745, General acute hospital OMEPRAZOLE ORAL 06-08 16:16: 51 06-08 00:00 :00 No 40mg Take 40 mg by mouth. [facility] diazePAM (VALIUM) tablet 2.5 mg 06-08 16:01: 34 Yes 2.5mg 2.5 mg, Oral, BIDPRN, Starting on 06/08/24 at 1101, Until Discontinu ed, Routine, Anxiety [facility] HYDROcodone -acetaminop hen (NORCO 5) tablet 1 tablet 06-08 14:42: 22 Yes 1{tbl} 1 tablet, Oral, Q6HPRN, Starting on 06/08/24 at 0942, Until Discontinu ed, Routine, Pain (scale 4-6) [facility] ketorolac (TORADOL) injection 30 mg 06-08 14:41: 51 06-10 14:40 :51 No 30mg 30 mg, Slow IV Push, Q8HPRN, Starting on 06/08/24 at 0941, Until 06/10/24 at 0940, Routine, Pain (scale 7-10) [facility] predniSONE (DELTASONE) tablet 40 mg 06-08 14:00: 00 Yes 40mg 40 mg, Oral, DAILY, First dose on 06/08/24 at 0900, Until Discontinu ed, Routine [facility] enoxaparin (LOVENOX) injection 40 mg 06-08 14:00: 00 Yes 40mg 40 mg, Subcutaneo us, DAILY, First dose on Mon06/08/24 at 0900, Until Discontinu ed, Routine [facility] HYDROcodone -acetaminop hen (NORCO 5) tablet 1 tablet 06-08 13:33: 06 06-08 14:42 :37 No 1{tbl} 1 tablet, Oral, Q6HPRN, Starting on Mon06/08/24 at 0833, Until Mon06/08/24 at 0942, Routine, Pain (scale 7-10) [facility] mupirocin (BACTROBAN OINT) 2 % oinintment 06-08 13:00: 00 Yes Univers [facility] diphenhydrA MINE (BENADRYL) injection 25 mg 06-08 05:00: 00 Yes 25mg 25 mg, Intravenou s, Q6H, First dose on Mon06/08/24 at 0000, Until Discontinu ed, Routine [facility] methylpredn isolone sod succ (SOLU-MEDRO L) injection 80 mg 06-08 05:00: 00 06-08 13:32 :18 No 80mg 80 mg, Intravenou s, Q6H, First dose (after last modificati on) on Mon06/08/24 at 0000, Until Discontinu ed, 2 mL [facility] albuterol (PROVENTIL) 2.5 mg /3 mL (0.083 %) nebulizer solution 2.5 mg 06-08 02:11: 00 Yes 2.5mg 2.5 mg, Inhalation , Q6HPRN, 4 doses, Starting on Mon06/07/24 at 2111, Until Discontinu ed, Routine, Shortness of Breath, Wheezing, Bronchospa sm, Chest tightness [facility] hydrocortis one 1 % cream 06-08 01:45: 00 Yes Topical (Apply To Affected Areas), DAILY, First dose on Mon06/07/24 at 2045, Until Discontinu ed, Routine [facility] famotidine (PEPCID (PF)) injection 20 mg 06-08 01:45: 00 Yes 20mg 20 mg, Slow IV Push, Q12H, First dose (after last reorder) on Mon06/07/24 at 2045, Until Discontinu ed, Routine [facility] ondansetron (ZOFRAN (PF)) injection 4 mg 06-08 01:44: 36 Yes 4mg 4 mg, Slow IV Push, Q6HPRN, Starting on Mon06/07/24 at 2043, Until Discontinu ed, [place], Nausea and Vomiting (N/V) [facility] morpHINE (4 mg/mL) injection 4 mg 06-08 01:40: 03 06-08 13:33 :26 No 4mg 4 mg, Slow IV Push, Q4HPRN, Starting on Mon06/07/24 at 0, Until 06/08/24 at 0833, Routine, Pain (scale 7-10), Pain (scale 4-6) [facility] ondansetron 4 mg disintegrat ing tablet 06-08 00:00: 00 Yes [id number] 4mg Take 1 tablet by mouth every 8 (eight) hours as needed for Nausea and Vomiting (N/V). [facility] HYDROcodone -acetaminop hen 5-325 mg tablet 06-08 00:00: 00 06-16 04:59 :00 No [id number] 1{tbl} Take 1 tablet by mouth every 6 (six) hours as needed for Pain (scale 4-6) for up to 7 days. Indication s: acute pain [facility] diphenhydrA MINE 50 mg capsule 06-08 00:00: 00 06-14 00:00 :00 No [id number] 50mg Take 1 capsule by mouth every 4 (four) hours as needed for Allergies or Itching for up to 5 days. [facility] ketorolac 10 mg tablet 06-08 00:00: 00 06-13 04:59 :00 No [id number] 10mg Take 1 tablet by mouth every 6 (six) hours as needed for Alternate with [place] for pain scale 4-6 for up to 4 days. [facility] predniSONE 20 mg tablet 06-08 00:00: 00 06-12 04:59 :00 No [id number] 20mg Take 1 tablet by mouth in the morning for 3 days. [facility] diphenhydrA MINE (BENADRYL) injection 25 mg 06-07 23:30: 00 06-07 23:24 :00 No 25mg 25 mg, Slow IV Push, ONCE, 1 dose, On Mon06/07/24 at 1830, STAT [facility] morpHINE (4 mg/mL) injection 4 mg 06-07 22:45: 00 06-07 22:39 :00 No 4mg 4 mg, Slow IV Push, ONCE, 1 dose, On Mon06/07/24 at 1745, STAT [facility] ondansetron (ZOFRAN (PF)) injection 4 mg 06-07 22:45: 00 06-07 22:39 :00 No 4mg 4 mg, Slow IV Push, ONCE, 1 dose, On Mon06/07/24 at 1745, General acute hospital EPINEPHrine 1:1,000 (1 mg/mL) (ADRENALIN) injection 0.3 mg 06-07 22:00: 00 06-07 22:00 :00 No .3mg 0.3 mg, Subcutaneo us, ONCE, 1 dose, On Mon06/07/24 at 1700, [facility] acute hospital famotidine (PEPCID (PF)) injection 20 mg 06-07 21:45: 00 06-07 21:51 :00 No 20mg 20 mg, Slow IV Push, ONCE, 1 dose, On Mon06/07/24 at 1645, [facility] acute hospital diphenhydrA MINE (BENADRYL) injection 25 mg 06-07 21:45: 00 06-07 21:46 :00 No 25mg 25 mg, Slow IV Push, ONCE, 1 dose, On Mon06/07/24 at 1645, [facility] dexamethaso ne sod phos PF injection 10 mg 06-07 21:45: 00 06-07 21:47 :00 No 10mg 10 mg, Slow IV Push, ONCE, 1 dose, On Mon06/07/24 at 1645, 1 mL [facility] diazePAM 2 MG diazePAM 2 MG 10-24 00:00: 00 No 1{table t_as_ne eded} QD diazePAM 2 MG Toradol (Ketorolac) Toradol (Ketorolac) 01-19 00:00: 00 No 60mg [facility] piperacilli n-tazobacta m (ZOSYN) 3.375 g in NaCl 0.9% (NS) 100 mL MINI-BAG 2020-10 18:15: 00 08-04 18:10 :00 No 3.375g 3.375 g, IV Piggyback, ONCE, 1 dose, On Mon08/04/21 at 1315, Administer over 30 Minutes, 100 mL
Reas on for Anti-Infec tive: Empiric Therapy for Suspected Infection< br>Empiric Therapy Site: Abdominal< br>Duratio n of therapy: 72 hours [facility] ondansetron (ZOFRAN (PF)) injection 4 mg 2020-10 17:30: 00 08-04 16:38 :00 No 4mg 4 mg, Slow IV Push, ONCE, 1 dose, On Mon08/04/21 at 1230, Routine [facility] iopamidol (ISOVUE 370-500 mL) injection 120 mL 2020-10 16:48: 00 08-04 16:48 :00 No [id number] 120mL 120 mL, Intravenou s, ONCE, 1 dose, On Mon08/04/21 at 1200, Routine [facility] NaCl 0.9% (NS) bolus infusion 1,000 mL 2020-10 16:30: 00 08-04 18:30 :00 No 1000mL at 999 mL/hr, 1,000 mL, IV Infusion, ONCE, 1 dose, On Mon08/04/21 at 1130, STAT [facility] morpHINE injection 4 mg 2020-10 16:26: 36 Yes 4mg 4 mg, Slow IV Push, Q4HPRN, Starting on Mon08/04/21 at 1126, Until Discontinu ed, Routine, Pain (scale 7-10) [facility] ondansetron 4 mg disintegrat ing tablet 2020-10 00:00: 00 06-08 00:00 :00 No [id number] 4mg Take 1 tablet by mouth every 8 (eight) hours as needed for Nausea and Vomiting (N/V). [facility] ibuprofen (IBU) tablet 600 mg 05-20 22:00: 00 05-21 09:59 :00 No 600mg 600 mg, Oral, ONCE, 1 dose, Catherine 05/20/21 at 1700, General acute hospital ibuprofen 600 mg tablet 05-20 00:00: 00 06-08 00:00 :00 No [id number] 600mg Take 1 tablet by mouth every 6 (six) hours as needed for Pain (scale 4-6). [facility] acetaminoph en-codeine 300-30 mg tablet 05-20 00:00: 00 06-08 00:00 :00 No [id number] 1{tbl} Take 1 tablet by mouth every 4 (four) hours as needed for Pain (scale 4-6). Indication s: acute pain [facility] acetaminoph en (TYLENOL) tablet 650 mg 01-21 22:30: 00 01-21 21:29 :00 No 650mg 650 mg, Oral, ONCE, 1 dose, Catherine 01/21/21 at 1730, [facility] acute hospital metoclopram rene HCl (REGLAN) injection 10 mg 01-21 21:45: 00 01-21 20:53 :00 No 10mg 10 mg, Slow IV Push, ONCE, 1 dose, Catherine 01/21/21 at 1645, [facility] acute hospital ketorolac (TORADOL) injection 30 mg 01-21 20:45: 00 01-21 20:54 :00 No 30mg 30 mg, Slow IV Push, ONCE, 1 dose, Catherine 01/21/21 at 1545, [facility]
Fa culty member approving Restricted medication : SANDEE GUILLEN [facility] ondansetron (ZOFRAN (PF)) injection 4 mg 01-21 20:30: 00 01-21 19:40 :00 No 4mg 4 mg, Slow IV Push, ONCE, 1 dose, Catherine 01/21/21 at 1530, General acute hospital NaCl 0.9% (NS) bolus infusion 1,000 mL 01-21 19:30: 00 01-21 21:15 :00 No 1000mL at 999 mL/hr, 1,000 mL, IV Infusion, ONCE, 1 dose, Catherine 01/21/21 at 1430, [facility] acute hospital ondansetron (ZOFRAN ODT) 4 mg disintegrat ing tablet 01-21 00:00: 00 08-04 00:00 :00 No [id number] 4mg Take 1 tablet by mouth every 8 (eight) hours as needed for Nausea and Vomiting (N/V). [facility] iohexol (OMNIPAQUE 350 BULK-100 mL) injection 100 mL 2019-10 15:00: 00 10-20 14:52 :00 No 100mL 100 mL, Intravenou s, ONCE, 1 dose, 10/20/20 at 0915, Routine [facility] ondansetron (ZOFRAN (PF)) injection 4 mg 2019-10 15:00: 00 10-20 14:01 :00 No 4mg 4 mg, Slow IV Push, ONCE, 1 dose, 10/20/20 at 0900, [facility] acute hospital morpHINE injection 4 mg 2019-10 15:00: 00 10-20 14:03 :00 No 4mg 4 mg, Slow IV Push, ONCE, 1 dose, 10/20/20 at 0900, STAT [facility] diazePAM 2 mg tablet 2019-10 00:00: 00 Yes [id number] 2mg Take 1 tablet by mouth 3 (three) times daily as needed for Muscle Spasms. [facility] ibuprofen 800 mg tablet 2019-10 00:00: 00 06-08 00:00 :00 No [id number] 800mg Take 1 tablet by mouth every 8 (eight) hours. [facility] ibuprofen (IBU) tablet 600 mg 07-15 22:45: 00 07-15 21:58 :00 No 600mg 600 mg, Oral, ONCE, 1 dose, 07/15/20 at 1745, [facility] dicyclomine (BENTYL) 10 mg capsule 07-15 00:00: 00 06-08 00:00 :00 No [id number] 10mg Take 1 capsule by mouth 4 (four) times daily as needed for Abdominal pain. [facility] ACETAMINOPH EN EXTRA STRENGTH ORAL 01-16 18:34: 08 01-16 00:00 :00 No Take by mouth. [facility] traMADol 50 mg tablet 01-16 00:00: 00 06-08 00:00 :00 No [id number] 50mg Take 1 tablet by mouth every 8 (eight) hours as needed (moderate pain). [facility] OMEPRAZOLE ORAL 01-05 14:17: 39 Yes 40mg Take 40 mg by mouth. [facility] ACETAMINOPH EN EXTRA STRENGTH ORAL 01-05 14:17: 39 Yes Take by mouth. [facility] BUPROPION HCL ORAL 01-05 14:17: 39 Yes Take by mouth. [facility] OMEPRAZOLE ORAL 01-05 09:17: 39 Yes 40mg Take 40 mg by mouth. [facility] HYDROcodone -acetaminop hen 5-325 mg tablet 01-05 00:00: 00 01-16 00:00 :00 No [id number] 1{tbl} Take 1 tablet by mouth every 6 (six) hours as needed for Pain (scale 4-6) or Pain (scale 7-10). [facility] meperidine (DEMEROL) injection 50 mg 01-02 18:45: 00 01-02 18:43 :00 No 50mg 50 mg, Intravenou s, ONCE, 1 dose, Mon01/03/20 at 1345, [place], PACU
En ter indication for use: [facility]
production team member approving Restricted medication : SONDRA CHASE [facility] morpHINE injection 2 mg 01-02 18:42: 44 Yes 2mg 2 mg, Slow IV Push, Q5MIN PRN, 5 doses, Starting Mon01/03/20 at 1342, Until Discontinu ed, Routine, Pain (scale 4-6), PACU [facility] ondansetron (ZOFRAN (PF)) injection 4 mg 01-02 18:42: 44 Yes 4mg 4 mg, Slow IV Push, PRN, 1 dose, Starting Mon01/03/20 at 1342, Until Discontinu ed, Routine, Nausea and Vomiting (N/V), PACU [facility] lactated ringers IV infusion 1,000 mL 01-02 18:30: 00 Yes 1000mL at 75 mL/hr, 1,000 mL, IV Infusion, CONTINUOUS , Starting Mon01/03/20 at 1330, Until Discontinu ed, Routine, PACU [facility] HYDROcodone -acetaminop hen (NORCO 5) 5-325 mg tablet 1 tablet 01-02 18:30: 00 01-02 19:07 :00 No 1{tbl} 1 tablet, Oral, ONCE, 1 dose, Mon01/03/20 at 1330, Routine, PACU [facility] HYDROcodone -acetaminop hen (NORCO) 10-325 mg tablet 1 tablet 01-02 18:18: 14 Yes 1{tbl} 1 tablet, Oral, PRN, 1 dose, Starting Mon01/03/20 at 1318, Until Discontinu ed, Routine, Pain (scale 7-10), [facility] ibuprofen (IBU) tablet 800 mg 01-02 18:18: 14 Yes 800mg 800 mg, Oral, PRN, 1 dose, Starting Mon01/03/20 at 1318, Until Discontinu ed, Routine, Pain (scale 1-3), [facility] morpHINE injection 2 mg 01-02 18:17: 54 Yes 2mg 2 mg, Slow IV Push, Q5MIN PRN, 5 doses, Starting Mon01/03/20 at 1317, Until Discontinu ed, Routine, Pain (scale 4-6), PACU [facility] ondansetron (ZOFRAN (PF)) injection 4 mg 01-02 18:17: 54 Yes 4mg 4 mg, Slow IV Push, PRN, 1 dose, Starting Mon01/03/20 at 1317, Until Discontinu ed, Routine, Nausea and Vomiting (N/V), PACU [facility] [id number] IV infusion 1,000 mL 01-02 18:15: 00 Yes 1000mL at 125 mL/hr, IV Infusion, CONTINUOUS , Starting Mon01/03/20 at 1315, Until Discontinu ed, Routine [facility] ketorolac (TORADOL) injection 30 mg 01-02 18:15: 00 01-02 18:38 :00 No 30mg 30 mg, Intramuscu lar, ONCE, 1 dose, Mon01/03/20 at 1330, Routine
production team member approving Restricted medication : SONDRA CHAVIRA [facility] HYDROcodone -acetaminop hen (NORCO 5) 5-325 mg tablet 2 tablet 01-02 18:10: 00 Yes 2{tbl} 2 tablet, Oral, Q6HPRN, Starting Mon01/03/20 at 1310, Until Discontinu ed, Routine, Pain (scale 7-10) [facility] OMEPRAZOLE ORAL 01-02 17:55: 40 Yes 40mg Take 40 mg by mouth. [facility] ACETAMINOPH EN EXTRA STRENGTH ORAL 01-02 17:55: 40 Yes Take by mouth. [facility] BUPROPION HCL ORAL 01-02 17:55: 40 Yes Take by mouth. [facility] bupivacaine -epinephrin e-pf (SENSORCAIN E W/EPINEPHRI NE) 0.5 %-1:200,000 injection 01-02 17:05: 00 Yes PRN, Starting Mon01/03/20 at 1205, Until Discontinu ed, Routine, Intra-op [facility] sodium chloride 0.9 % irrigation solution 01-02 17:05: 00 Yes PRN, Starting Mon01/03/20 at 1205, Until Discontinu ed, Intra-op [facility] metroNIDAZO LE (FLAGYL I.V.) Piggyback 2,000 mg 01-02 16:02: 40 Yes 2000mg 2,000 mg, IV Piggyback, O.R. HOLDING ONCE, 1 dose, Starting Mon01/03/20 at 1102, Until Discontinu ed, 400 mL, Intra-op<b r>Reason for Anti-Infec tive: Surgical Prophylaxi s
Surgi gabriel Prophylaxi s: LINING SEWER
Duration of therapy: within 24 hours of surgery [facility] lactated ringers IV infusion 1,000 mL 01-02 14:00: 00 01-02 14:58 :00 No 1000mL at 20 mL/hr, 1,000 mL, IV Infusion, ONCE, 1 dose, Mon01/03/20 at 0900, Routine, DSU Pre-op [facility] HYDROcodone -acetaminop hen 5-325 mg tablet 01-02 00:00: 00 01-16 00:00 :00 No [id number] 1{tbl} Take 1 tablet by mouth every 6 (six) hours as needed for Pain (scale 4-6) or Pain (scale 7-10). [facility] ibuprofen 600 mg tablet 12-13 00:00: 00 06-08 00:00 :00 No [id number] 600mg Take 1 tablet by mouth every 6 (six) hours as needed (pain). Take one tablet every 6 hours for 5 days then every 6 hours as needed. [facility] ceFAZolin in dextrose (iso-os) (ANCEF) 2 gram/100 mL Piggyback 2 g 12-10 06:00: 12-10 17:59 :00 No 2g [facility] traMADol 50 mg tablet 12-01 00:00: 00 06-08 00:00 :00 No [id number] 50mg Take 1 tablet by mouth every 6 (six) hours as needed (pain). [facility] BUPROPION HCL ORAL 11-29 23:53: 52 Yes Take by mouth. [facility] ACETAMINOPH EN EXTRA STRENGTH ORAL 11-29 23:03: 45 Yes Take by mouth. [facility] gabapentin 300 mg capsule 11-29 00:00: 01-16 00:00 :00 No [id number] 300mg Take 1 capsule by mouth 3 (three) times daily. [facility] acetaminoph en (TYLENOL EXTRA STRENGTH) 500 mg tablet 11-29 00:00: 01-16 00:00 :00 No [id number] 1000mg Take 2 tablets by mouth every 6 (six) hours. [facility] celecoxib (CELEBREX) 200 mg capsule 11-29 00:00: 01-16 00:00 :00 No [id number] 200mg Take 1 capsule by mouth 2 (two) times daily with meals. [facility] traMADol 50 mg tablet 11-19 00:00: 11-29 00:00 :00 No [id number] 50mg Take 1 tablet by mouth every 8 (eight) hours as needed (pain). [facility] cefTRIAXone (ROCEPHIN) injection 250 mg 11-16 01:00: 11-16 00:05 :00 No 250mg 250 mg, Intramuscu lar, ONCE, 1 dose, Mon11/15/19 at 1900, [place]
Re ason for Anti-Infec tive: Empiric Therapy for Suspected Infection< br>Empiric Therapy Site: Pelvic
Duration of therapy: 72 hours [facility] medroxyPROG ESTERone (DEPO-PROVE RA) injection 150 mg 11-16 00:30: 00 11-15 23:00 :00 No 150mg 150 mg, Intramuscu lar, ONCE, 1 dose, Mon11/15/19 at 1830, Routine [facility] ketorolac (TORADOL) injection 60 mg 11-16 00:30: 00 11-15 23:15 :00 No 60mg 60 mg, Intramuscu lar, ONCE, 1 dose, Mon11/15/19 at 1830, Routine
production team member approving Restricted medication : SONDRA CHAVIRA [facility] plecanatide (TRULANCE) 3 mg Tab 11-15 23:52: 25 11-15 00:00 :00 No Take by mouth. [facility] doxycycline 100 mg tablet 11-15 00:00: 00 11-29 00:00 :00 No [id number] 100mg Take 1 tablet by mouth 2 (two) times daily. [facility] Kenalog (Triamcinol one) Kenalog (Triamcinol one) 2018-10 00:00: 00 No 40mg [facility] medroxyPROG ESTERone (DEPO-PROVE RA) injection 150 mg 06-07 16:30: 00 06-07 15:23 :00 No 150mg [facility] plecanatide (TRULANCE) 3 mg Tab 06-07 15:15: 28 Yes Take by mouth. [facility] linaCLOtide (LINZESS) 72 mcg Cap 05-11 00:00: 00 06-08 00:00 :00 No [facility] metroNIDAZO LE (FLAGYL) 500 mg tablet 04-17 00:00: 00 11-15 00:00 :00 No [id number] 500mg Take 1 tablet by mouth 2 (two) times daily. [facility] OMEPRAZOLE ORAL 04-10 15:31: 49 Yes 40mg Take 40 mg by mouth. [facility] ACETAMINOPH EN EXTRA STRENGTH ORAL 2018-0 04-10 15:31: 49 Yes Take by mouth. [facility] No known medications No Un olayinka ity [facility] Ondansetron HCl 4 MG Ondansetron HCl 4 [...] Time Observation Value Comments S ource height 2024-12-27 07:30:00 63 [in_i] Commo n [facility] weight 2024-12-27 07:30:00 170 [lb_av] Comm on [facility] bmi 2024-12-27 07:30:00 30.11 kg/m2 Comm on [facility] blood pressure systolic 2024-12-27 07:30:00 125 mm[Hg] [facility] blood pressure diastolic 2024-12-27 07:30:00 76 mm[Hg] Common [facility] height 2024-06-21 07:50:00 63 [in_i] Commo n [facility] weight 2024-06-21 07:50:00 170 [lb_av] Comm on [facility] bmi 2024-06-21 07:50:00 30.11 kg/m2 Comm on [facility] blood pressure systolic 2024-06-21 07:50:00 124 mm[Hg] [facility] blood pressure diastolic 2024-06-21 07:50:00 76 mm[Hg] [facility] height 2024-06-18 11:00:00 63 [in_i] Commo n [facility] weight 2024-06-18 11:00:00 181 [lb_av] Comm on [facility] temperature 2024-06-18 11:00:00 97.6 [degF] Com mon [facility] bmi 2024-06-18 11:00:00 32.06 kg/m2 Comm on [facility] oximetry 2024-06-18 11:00:00 98 % Commo n [facility] respiratory rate 2024-06-18 11:00:00 18 /min Common [facility] blood pressure systolic 2024-06-18 11:00:00 127 mm[Hg] [facility] blood pressure diastolic 2024-06-18 11:00:00 81 mm[Hg] [facility] Systolic blood pressure 2024-06-14 16:30:00 121 mm[Hg] [facility] Diastolic blood pressure 2024-06-14 16:30:00 71 mm[Hg] [facility] Heart rate 2024-06-14 16:30:00 61 /min [facility] Body temperature 2024-06-14 16:30:00 36.22 Liya [facility] Respiratory rate 2024-06-14 16:30:00 18 /min [facility] Oxygen saturation in Arterial blood by Pulse oximetry 2024-06-14 16:30:00 94 /min [facility] Body weight 2024-06-14 08:07:00 79.969 kg [facility] BMI 2024-06-14 08:07:00 31.23 kg/m2 [facility] Body height 2024-06-13 18:41:00 160 cm [facility] Heart rate 2024-06-08 22:00:00 75 /min [facility] Oxygen saturation in Arterial blood by Pulse oximetry 2024-06-08 22:00:00 100 /min [facility] Systolic blood pressure 2024-06-08 21:00:00 114 mm[Hg] [place] [facility] Diastolic blood pressure 2024-06-08 21:00:00 77 mm[Hg] [facility] Respiratory rate 2024-06-08 21:00:00 17 /min [facility] Body temperature 2024-06-08 20:00:00 36.28 Liya [facility] Body weight 2024-06-08 09:00:00 83.961 kg [facility] BMI 2024-06-08 09:00:00 32.79 kg/m2 [facility] Body height 2024-06-08 01:34:00 160 cm [facility] height 2024-01-23 08:00:00 63 [in_i] Commo n [facility] weight 2024-01-23 08:00:00 170 [lb_av] Comm on [facility] bmi 2024-01-23 08:00:00 30.11 kg/m2 Comm on [facility] blood pressure systolic 2024-01-23 08:00:00 124 mm[Hg] [facility] blood pressure diastolic 2024-01-23 08:00:00 76 mm[Hg] [facility] height 2023-10-24 10:40:00 63 [in_i] Commo n [facility] weight 2023-10-24 10:40:00 184 [lb_av] Comm on [facility] temperature 2023-10-24 10:40:00 101 [degF] Comm on [facility] bmi 2023-10-24 10:40:00 32.59 kg/m2 Comm on [facility] blood pressure systolic 2023-10-24 10:40:00 128 mm[Hg] [facility] blood pressure diastolic 2023-10-24 10:40:00 78 mm[Hg] [facility] height 2023-07-27 15:50:00 63 [in_i] Commo n [facility] weight 2023-07-27 15:50:00 183.4 [lb_av] Co mmon [facility] temperature 2023-07-27 15:50:00 98.2 [degF] Com mon [facility] bmi 2023-07-27 15:50:00 32.48 kg/m2 Comm on [facility] oximetry 2023-07-27 15:50:00 98 % Commo n [facility] respiratory rate 2023-07-27 15:50:00 18 /min Common [facility] blood pressure systolic 2023-07-27 15:50:00 115 mm[Hg] [facility] blood pressure diastolic 2023-07-27 15:50:00 64 mm[Hg] [facility] height 2023-06-29 09:20:00 63 [in_i] Commo n [facility] height 2023-04-07 08:10:00 63 [in_i] Commo n [facility] weight 2023-04-07 08:10:00 155 [lb_av] Comm on [facility] bmi 2023-04-07 08:10:00 27.45 kg/m2 Comm on [facility] blood pressure systolic 2023-04-07 08:10:00 123 mm[Hg] [facility] blood pressure diastolic 2023-04-07 08:10:00 72 mm[Hg] [facility] height 2022-12-23 16:10:00 63 [in_i] Commo n [facility] weight 2022-12-23 16:10:00 165 [lb_av] Comm on [facility] bmi 2022-12-23 16:10:00 29.23 kg/m2 Comm on [facility] height 2022-12-15 08:40:00 63 [in_i] Commo n [facility] weight 2022-12-15 08:40:00 165 [lb_av] Comm on [facility] temperature 2022-12-15 08:40:00 98 [degF] Comm on [facility] bmi 2022-12-15 08:40:00 29.23 kg/m2 Comm on [facility] blood pressure systolic 2022-12-15 08:40:00 128 mm[Hg] [facility] blood pressure diastolic 2022-12-15 08:40:00 74 mm[Hg] [facility] height 2022-10-12 16:00:00 63 [in_i] Commo n [facility] weight 2022-10-12 16:00:00 155 [lb_av] Comm on [facility] temperature 2022-10-12 16:00:00 98 [degF] Comm on [facility] bmi 2022-10-12 16:00:00 27.45 kg/m2 Comm on [facility] blood pressure systolic 2022-10-12 16:00:00 132 mm[Hg] [facility] blood pressure diastolic 2022-10-12 16:00:00 76 mm[Hg] [facility] height 2022-08-24 10:50:00 63 [in_i] Commo n [facility] weight 2022-08-24 10:50:00 160.4 [lb_av] Co mmon [facility] temperature 2022-08-24 10:50:00 97.4 [degF] Com mon [facility] bmi 2022-08-24 10:50:00 28.41 kg/m2 Comm on [facility] oximetry 2022-08-24 10:50:00 98 % Commo n [facility] respiratory rate 2022-08-24 10:50:00 18 /min Common [facility] blood pressure systolic 2022-08-24 10:50:00 134 mm[Hg] [facility] blood pressure diastolic 2022-08-24 10:50:00 67 mm[Hg] [facility] height 2022-08-16 16:10:00 63 [in_i] Commo n [facility] weight 2022-08-16 16:10:00 161.7 [lb_av] Co mmon [facility] temperature 2022-08-16 16:10:00 98.0 [degF] Com mon [facility] bmi 2022-08-16 16:10:00 28.64 kg/m2 Comm on [facility] oximetry 2022-08-16 16:10:00 100 % Commo n [facility] respiratory rate 2022-08-16 16:10:00 18 /min [facility] blood pressure systolic 2022-08-16 16:10:00 137 mm[Hg] [facility] blood pressure diastolic 2022-08-16 16:10:00 85 mm[Hg] [facility] height 2022-07-26 14:00:00 63 [in_i] Commo n [facility] weight 2022-07-26 14:00:00 159 [lb_av] Comm on [facility] temperature 2022-07-26 14:00:00 97.4 [degF] Com mon [facility] bmi 2022-07-26 14:00:00 28.16 kg/m2 Comm on [facility] oximetry 2022-07-26 14:00:00 99 % Commo n [facility] respiratory rate 2022-07-26 14:00:00 18 /min Common [facility] blood pressure systolic 2022-07-26 14:00:00 132 mm[Hg] [facility] blood pressure diastolic 2022-07-26 14:00:00 76 mm[Hg] [facility] height 2022-07-08 14:00:00 63 [in_i] Commo n [facility] weight 2022-07-08 14:00:00 161.1 [lb_av] Co mmon [facility] temperature 2022-07-08 14:00:00 98.2 [degF] Com mon [facility] bmi 2022-07-08 14:00:00 28.53 kg/m2 Comm on [facility] oximetry 2022-07-08 14:00:00 96 % Commo n [facility] respiratory rate 2022-07-08 14:00:00 18 /min Common [facility] blood pressure systolic 2022-07-08 14:00:00 131 mm[Hg] [facility] blood pressure diastolic 2022-07-08 14:00:00 61 mm[Hg] Common [facility] height 2022-05-20 08:00:00 63 [in_i] Commo n [facility] weight 2022-05-20 08:00:00 160 [lb_av] Comm on [facility] temperature 2022-05-20 08:00:00 98 [degF] Comm on [facility] bmi 2022-05-20 08:00:00 28.34 kg/m2 Comm on [facility] blood pressure systolic 2022-05-20 08:00:00 120 mm[Hg] [facility] blood pressure diastolic 2022-05-20 08:00:00 72 mm[Hg] [facility] height 2022-04-28 14:30:00 63 [in_i] Commo n [facility] weight 2022-04-28 14:30:00 157.8 [lb_av] Co mmon [facility] temperature 2022-04-28 14:30:00 98.0 [degF] Com mon [facility] bmi 2022-04-28 14:30:00 27.95 kg/m2 Comm on [facility] oximetry 2022-04-28 14:30:00 98 % Commo n [facility] respiratory rate 2022-04-28 14:30:00 18 /min Common [facility] blood pressure systolic 2022-04-28 14:30:00 126 mm[Hg] Common [facility] blood pressure diastolic 2022-04-28 14:30:00 79 mm[Hg] [facility] height 2022-03-30 14:00:00 63 [in_i] Commo n [facility] weight 2022-03-30 14:00:00 156.4 [lb_av] Co mmon [facility] temperature 2022-03-30 14:00:00 98.6 [degF] Com mon [facility] bmi 2022-03-30 14:00:00 27.7 kg/m2 Commo n [facility] oximetry 2022-03-30 14:00:00 98 % Commo n [facility] respiratory rate 2022-03-30 14:00:00 16 /min Common [facility] blood pressure systolic 2022-03-30 14:00:00 120 mm[Hg] [facility] blood pressure diastolic 2022-03-30 14:00:00 84 mm[Hg] [facility] height 2022-02-24 07:50:00 63 [in_i] Commo n [facility] weight 2022-02-24 07:50:00 164 [lb_av] Comm on [facility] temperature 2022-02-24 07:50:00 98 [degF] Comm on [facility] bmi 2022-02-24 07:50:00 29.05 kg/m2 Comm on [facility] blood pressure systolic 2022-02-24 07:50:00 121 mm[Hg] Common [facility] blood pressure diastolic 2022-02-24 07:50:00 75 mm[Hg] Common [facility] height 2022-01-19 11:00:00 63 [in_i] Commo n [facility] weight 2022-01-19 11:00:00 165.8 [lb_av] Co mmon [facility] temperature 2022-01-19 11:00:00 97.5 [degF] Com mon [facility] bmi 2022-01-19 11:00:00 29.37 kg/m2 Comm on [facility] oximetry 2022-01-19 11:00:00 100 % Commo n [facility] respiratory rate 2022-01-19 11:00:00 17 /min [facility] blood pressure systolic 2022-01-19 11:00:00 111 mm[Hg] [facility] blood pressure diastolic 2022-01-19 11:00:00 74 mm[Hg] [facility] height 2021-12-22 15:50:00 63 [in_i] Commo n [facility] weight 2021-12-22 15:50:00 160 [lb_av] Comm on [facility] temperature 2021-12-22 15:50:00 98 [degF] Comm on [facility] bmi 2021-12-22 15:50:00 28.34 kg/m2 Comm on [facility] height 2021-09-22 15:40:00 63 [in_i] Commo n [facility] weight 2021-09-22 15:40:00 160 [lb_av] Comm on [facility] temperature 2021-09-22 15:40:00 97.4 [degF] Com mon [facility] bmi 2021-09-22 15:40:00 28.34 kg/m2 Comm on [facility] blood pressure systolic 2021-09-22 15:40:00 125 mm[Hg] [facility] blood pressure diastolic 2021-09-22 15:40:00 75 mm[Hg] [facility] height 2021-08-05 08:20:00 63 [in_i] Commo n [facility] weight 2021-08-05 08:20:00 174 [lb_av] Comm on [facility] bmi 2021-08-05 08:20:00 30.82 kg/m2 Comm on [facility] Systolic blood pressure 2021-08-04 19:00:00 125 mm[Hg] [facility] Diastolic blood pressure 2021-08-04 19:00:00 85 mm[Hg] [facility] Heart rate 2021-08-04 19:00:00 69 /min [facility] Respiratory rate 2021-08-04 19:00:00 16 /min [facility] Oxygen saturation in Arterial blood by Pulse oximetry 2021-08-04 19:00:00 97 /min [facility] Body temperature 2021-08-04 17:00:00 36.72 Liya [facility] Body height 2021-08-04 16:09:00 160 cm [facility] Body weight 2021-08-04 16:09:00 72.576 kg [facility] BMI 2021-08-04 16:09:00 28.34 kg/m2 [facility] Systolic blood pressure 2021-05-20 17:04:00 134 mm[Hg] [facility] Diastolic blood pressure 2021-05-20 17:04:00 87 mm[Hg] [facility] Heart rate 2021-05-20 17:04:00 101 /min [facility] Body temperature 2021-05-20 17:04:00 37.11 Liya [facility] Respiratory rate 2021-05-20 17:04:00 18 /min [facility] Body weight 2021-05-20 17:04:00 81.647 kg [facility] BMI 2021-05-20 17:04:00 31.89 kg/m2 [facility] Oxygen saturation in Arterial blood by Pulse oximetry 2021-05-20 17:04:00 98 /min [facility] Systolic blood pressure 2021-01-21 21:10:00 124 mm[Hg] [facility] Diastolic blood pressure 2021-01-21 21:10:00 63 mm[Hg] [facility] Heart rate 2021-01-21 21:10:00 98 /min [facility] Body temperature 2021-01-21 21:10:00 37.78 Liya [facility] Respiratory rate 2021-01-21 21:10:00 20 /min [facility] Oxygen saturation in Arterial blood by Pulse oximetry 2021-01-21 21:10:00 100 /min [facility] Body weight 2021-01-21 18:05:00 81.647 kg [facility] BMI 2021-01-21 18:05:00 31.89 kg/m2 [facility] Systolic blood pressure 2020-10-20 15:50:00 123 mm[Hg] [facility] Diastolic blood pressure 2020-10-20 15:50:00 81 mm[Hg] [facility] Heart rate 2020-10-20 15:50:00 88 /min [facility] Respiratory rate 2020-10-20 15:50:00 18 /min [facility] Oxygen saturation in Arterial blood by Pulse oximetry 2020-10-20 15:50:00 97 /min [facility] Body temperature 2020-10-20 13:37:00 36.22 Liya [facility] Body height 2020-10-20 13:37:00 160 cm [facility] Body weight 2020-10-20 13:37:00 86.183 kg [facility] BMI 2020-10-20 13:37:00 33.66 kg/m2 [facility] Systolic blood pressure 2020-07-15 23:05:00 148 mm[Hg] [facility] Diastolic blood pressure 2020-07-15 23:05:00 100 mm[Hg] [facility] Heart rate 2020-07-15 23:05:00 88 /min Unive [facility] Body temperature 2020-07-15 23:05:00 37.17 Liya [facility] Respiratory rate 2020-07-15 23:05:00 18 /min [facility] Oxygen saturation in Arterial blood by Pulse oximetry 2020-07-15 23:05:00 99 /min [facility] Body weight 2020-07-15 21:28:00 77.111 kg [facility] BMI 2020-07-15 21:28:00 30.11 kg/m2 [facility] Systolic blood pressure 2020-01-03 19:26:00 121 mm[Hg] [facility] Diastolic blood pressure 2020-01-03 19:26:00 74 mm[Hg] [facility] Heart rate 2020-01-03 19:26:00 85 /min Unive [facility] Respiratory rate 2020-01-03 19:26:00 16 /min [facility] Oxygen saturation in Arterial blood by Pulse oximetry 2020-01-03 19:26:00 98 /min [facility] Body temperature 2020-01-03 14:01:00 37.22 Liya [facility] Body height 2020-01-03 14:01:00 160 cm [facility] Body weight 2020-01-03 14:01:00 77.111 kg [facility] BMI 2020-01-03 14:01:00 30.11 kg/m2 [facility] Systolic blood pressure 2019-11-29 23:03:00 127 mm[Hg] [facility] Diastolic blood pressure 2019-11-29 23:03:00 96 mm[Hg] [facility] Heart rate 2019-11-29 23:03:00 86 /min Unive [facility] Body temperature 2019-11-29 23:03:00 36.83 Liya [facility] Respiratory rate 2019-11-29 23:03:00 18 /min [facility] Body height 2019-11-29 23:03:00 160 cm [facility] Body weight 2019-11-29 23:03:00 76.658 kg [facility] BMI 2019-11-29 23:03:00 29.94 kg/m2 [facility] Systolic blood pressure 2019-11-15 22:16:00 129 mm[Hg] [facility] Diastolic blood pressure 2019-11-15 22:16:00 86 mm[Hg] [facility] Heart rate 2019-11-15 22:16:00 82 /min [facility] Body temperature 2019-11-15 22:16:00 36.78 Liya [facility] Respiratory rate 2019-11-15 22:16:00 18 /min [facility] Body height 2019-11-15 22:16:00 160.7 cm [facility] Body weight 2019-11-15 22:16:00 77.111 kg [facility] BMI 2019-11-15 22:16:00 29.88 kg/m2 [facility] Systolic blood pressure 2019-06-07 15:13:00 110 mm[Hg] [facility] Diastolic blood pressure 2019-06-07 15:13:00 72 mm[Hg] [facility] Heart rate 2019-06-07 15:13:00 77 /min [facility] Body temperature 2019-06-07 15:13:00 36.83 Liya [facility] Respiratory rate 2019-06-07 15:13:00 20 /min [facility] Body height 2019-06-07 15:13:00 160 cm [facility] Body weight 2019-06-07 15:13:00 67.495 kg [facility] BMI 2019-06-07 15:13:00 26.36 kg/m2 [facility] Procedures Procedure Date / Time Performed Performing Clinician Source BASIC METABOLIC PANEL (NA, K, CL, CO2, GLUCOSE, BUN, CREATININE, CA) 2024-06-14 09:48:00 Michelle Toney [facility] CBC WITH DIFF 2024-06-14 09:48:00 Michelle Toney [facility] BASIC METABOLIC PANEL (NA, K, CL, CO2, GLUCOSE, BUN, CREATININE, CA) 2024-06-08 09:42:00 Michelle Toney [facility] CBC WITH DIFF 2024-06-08 09:42:00 Michelle Toney [facility] COMP. METABOLIC PANEL ([id number]) 2024-06-08 00:15:00 Sergio [facility] CBC WITH DIFF 2024-06-07 [facility]-07 21:36:00 Sergio [facility] ABDOMEN PELVIS W CONTRAST 2021-08-04 16:53:[address] [facility] LIPASE 2021-08-04 16:37:00 [facility] COMP. METABOLIC PANEL ([id number]) 2021-08-04 16:37:[address] [facility] CBC WITH DIFF 2021-08-04 16:37:00 Moore [facility] URINALYSIS 2021-08-04 16:37:00 [facility] CONSENT/REFUSAL FOR DIAGNOSIS AND TREATMENT 2021-08-04 15:58:11 Doctor Unassigned, [place] [facility] CT KNEE RIGHT WO CONTRAST 2021-05-20 19:15:50 Blaine Perez [facility] XR KNEE 3 VW RIGHT 2021-05-20 17:34:16 Erika Guillen [facility] NOTICE OF PRIVACY PRACTICES 2021-05-20 17:00:21 Doctor Unassigned, [place] [facility] CONSENT/REFUSAL FOR DIAGNOSIS AND TREATMENT 2021-05-20 17:00:06 Doctor Unassigned, [place] [facility] URINALYSIS 2021-01-21 20:55:00 Sandee Guillen [facility] BASIC METABOLIC PANEL (NA, K, CL, CO2, GLUCOSE, BUN, CREATININE, CA) 2021-01-21 19:37:00 Sandee Guillen [facility] CBC WITH DIFF 2021-01-21 19:37:00 Sandee Guillen [facility] XR CHEST 1 VW 2021-01-21 18:33:12 Sandee Guillen [facility] COVID-19 (ID NOW RAPID TESTING) 2021-01-21 18:09:00 Sandee Guillen [facility] CONSENT/REFUSAL FOR DIAGNOSIS AND TREATMENT 2021-01-21 17:52:09 Doctor Unassigned, [place] [facility] CT ANGIOGRAM NECK 2020-10-20 14:59:45 Aris Hill [facility] POCT TEST 2020-10-20 14:00:00 Jarrett Hill [facility] HEPATIC FUNCTION PANEL (70170) (ALB,T.PRO,BILI T,BU/BC,ALT,AST,ALK PHOS) 2020-10-20 13:57:00 Aris Hill [facility] BASIC METABOLIC PANEL (NA, K, CL, CO2, GLUCOSE, BUN, CREATININE, CA) 2020-10-20 13:57:00 Aris Hill [facility] CBC WITH DIFF 2020-10-20 13:57:00 Aris Hill [facility] PROTHROMBIN TIME / INR 2020-10-20 13:57:00 Favio Hill [facility] ACTIVATED PARTIAL THRMPLAS LATOSHA 2020-10-20 13:57:00 Aris Hill [facility] NOTICE OF PRIVACY PRACTICES 2020-10-20 13:42:58 Doctor Unassigned, [place] [facility] CONSENT/REFUSAL FOR DIAGNOSIS AND TREATMENT 2020-10-20 13:34:05 Doctor Unassigned, [place] [facility] RAPID STREP SCREEN FOR GROUP A 2020-07-15 21:57:00 Clarence Weiss [facility] NOTICE OF PRIVACY PRACTICES 2020-07-15 21:13:13 Doctor Unassigned, [place] [facility] CONSENT/REFUSAL FOR DIAGNOSIS AND TREATMENT 2020-07-15 21:12:59 Doctor Unassigned, [place] [facility] LAPAROSCOPIC TOTAL ABDOMINAL HYSTERECTOMY 2020-01-03 14:57:00 Jhon [facility] CYSTOSCOPY 2020-01-03 14:57:00 Sondra Chavira [facility] SALPINGECTOMY 2020-01-03 14:57:00 Sondra Chavira [facility] BASIC METABOLIC PANEL (NA, K, CL, CO2, GLUCOSE, BUN, CREATININE, CA) 2020-01-03 14:28:00 Carmen Kennedy [facility] CBC WITH DIFFERENTIAL 2020-01-03 14:28:00 Vilma Kennedy [facility] HB ABO GROUPING 2020-01-03 14:24:00 [facility] 2020-01-03 14:00:00 Keith Oliva [facility] DAY SURGERY - ADC 2020-01-03 05:01:00 Doctor Dulce ssigned, [place] [facility] ASSIGNMENT OF BENEFITS 2019-11-15 23:27:34 Docto r Unassigned, [place] [facility] POCT TEST 2019-11-15 00:00:00 Valerie Chavira [facility] Encounters Start Date/Time End Date/Time Encounter Type Admission Type [facility] Care Department Encounter ID Source 2024-12-25 11:07:00 [facility] [id number] [facility] 2024-06-20 13:39:00 Outpatient Smart, [facility] [id number] [facility] 2024-06-17 08:43:00 Outpatient Smart, [facility] [id number] [facility] 2024-01-22 09:10:00 Outpatient Smart, [facility] [id number] [facility] 2024-01-19 13:47:00 Outpatient Smart, [facility] [id number] [facility] 2023-10-24 10:09:00 Outpatient Smart, [facility] [id number] [facility] 2023-04-05 10:16:00 Outpatient Smart, [facility] [id number] [facility] 2022-12-15 08:16:00 Outpatient Smart, [facility] [id number] [facility] 2022-10-11 10:39:01 Outpatient Smart, Benny STLMLC STL[facility]C [id number] [facility] 2022-08-22 13:19:00 Outpatient Smart, Benny STLMLC STL[facility]C [id number] [facility] 2022-05-18 11:08:00 Outpatient Smart, Benny STL[facility]C STL[facility]C [id number] [facility] 2022-05-06 09:31:00 Outpatient Smart, Benny STLMLC STLMLC [id number] [facility] 2022-01-20 08:29:00 Outpatient Smart, Benny STL[facility]C STLMLC [id number] [facility] 2021-11-17 14:19:29 Outpatient Smart, Benny [facility] STL[facility]C [id number] [facility] 2021-11-17 13:45:03 Outpatient Smart, Benny STL[facility]C ST[facility]C [id number] [facility] 2021-11-17 12:23:40 Outpatient Smart, Benny [facility] ST[facility] [id number] [facility] 2021-11-17 12:08:39 Outpatient Smart, Benny [facility] ST[facility] [id number] [facility] 2021-11-17 11:29:40 Outpatient Smart, Benny [facility] ST[facility] [id number] [facility] 2021-11-17 11:24:43 Outpatient Smart, Benny [facility] ST[facility] [id number] [facility] 2021-11-17 11:24:07 Outpatient Smart, Benny STL[facility]C ST[facility]C [id number] [facility] 2021-08-24 06:27:16 Emergency [facility] [id number] [facility] 2021-08-23 11:45:25 Emergency [facility] [id number] [facility] 2021-08-21 13:31:42 Emergency [facility] [id number] [facility] 2021-08-20 19:06:29 Emergency [facility] [id number] [facility] 2021-08-19 12:19:52 Inpatient Jasbir CHAVIRA, SONDRA CHAVIRA, SONDRA [facility] [id number] [facility] 2024-12-27 00:00:00 2024-12-27 00:00:00 OFFICE VISIT ESTAB PT LEVEL 4 [facility] ST[facility] [id number] [facility] 2024-12-20 00:00:00 2024-12-20 00:00:00 (TEL) STLC STLC [id number] [facility] 2024-06-12 00:00:00 2024-07-13 18:19:05 Patient Secure Msg Doctor Unassigned, [place] Doctor Unassigned, [place] [facility] 1.2.840.114 350.1.13.10 4.2.7.2.686 [id number] [facility] 2024-07-08 00:00:00 2024-07-08 00:00:00 (TEL) STLC STLMLC [id number] [facility] 2024-06-21 00:00:00 2024-06-21 00:00:00 OFFICE VISIT ESTAB PT LEVEL 4 [facility]LMLC STL[facility]C [id number] [facility] 2024-06-17 00:00:00 2024-06-18 12:01:18 Transition of Care Yoli Rhodes Marisa M [address] 1.2.840.114 350.1.13.10 4.2.7.2.686 [id number] [facility] 2024-06-18 00:00:00 2024-06-18 00:00:00 OFFICE VISIT ESTAB PT LEVEL 3 STLMLC STLMLC [id number] [facility] 2024-06-13 07:30:00 2024-06-14 15:25:00 Outpatient X MICHELLE TONEY [facility] [id number] [facility] 2024-06-13 07:30:00 2024-06-14 15:25:00 Emergency Breanna Meza Jelani [facility] 1.2.840.114 350.1.13.10 4.2.7.2.686 [id number] [facility] 2024-06-14 00:00:00 2024-06-14 00:00:00 (TEL) STLMLC STLMLC [id number] [facility] 2024-06-10 00:00:00 2024-06-11 17:11:44 Transition of Care [facility]oli Rhodes [facility] 1.2.840.114 350.1.13.10 4.2.7.2.686 [id number] [facility] 2024-06-07 16:38:00 2024-06-08 17:10:00 Inpatient X MICHELLE TONEY [facility] [id number] [facility] 2024-06-07 16:38:00 2024-06-08 17:10:00 Hospital Encounter Aris Hill Jelani [facility] 1.2.840.114 350.1.13.10 4.2.7.2.686 [id number] [facility] 2024-01-23 00:00:00 2024-01-23 00:00:00 OFFICE VISIT ESTAB PT LEVEL 4 STLMLC STLMLC [id number] [facility] 2023-11-02 00:00:00 2023-11-02 00:00:00 (TEL) STLMLC STLMLC [id number] [facility] 2023-10-24 00:00:00 2023-10-24 00:00:00 (TEL) STLMLC STLMLC [id number] [facility] 2023-10-24 00:00:00 2023-10-24 00:00:00 OFFICE VISIT ESTAB PT LEVEL 4 STLMLC STLMLC [id number] [facility] 2023-10-24 00:00:00 2023-10-24 00:00:00 (TEL) STLMLC STLMLC [id number] [facility] 2023-07-27 00:00:00 2023-07-27 00:00:00 PREV VISIT EST AGE 18-39 STLMLC STLMLC [id number] [facility] 2023-07-12 00:00:00 2023-07-12 00:00:00 (TEL) STLMLC STLMLC [id number] [facility] 2023-06-29 00:00:00 2023-06-29 00:00:00 OFFICE VISIT ESTAB PT LEVEL 3 STLMLC STLMLC [id number] [facility] 2023-06-29 00:00:00 2023-06-29 00:00:00 (TEL) STLMLC STLMLC [id number] [facility] 2023-04-07 00:00:00 2023-04-07 00:00:00 OFFICE VISIT ESTAB PT LEVEL 4 STLMLC STLMLC [id number] [facility] 2022-12-23 00:00:00 2022-12-23 00:00:00 OFFICE VISIT ESTAB PT LEVEL 3 STLMLC STLMLC [id number] [facility] 2022-12-23 00:00:00 2022-12-23 00:00:00 (TEL) STLMLC STLMLC [id number] [facility] 2022-12-16 00:00:00 2022-12-16 00:00:00 (TEL) STLMLC STLMLC [id number] [facility] 2022-12-15 00:00:00 2022-12-15 00:00:00 OFFICE VISIT ESTAB PT LEVEL 4 STLMLC STLMLC [id number] [facility] 2022-10-12 00:00:00 2022-10-12 00:00:00 OFFICE VISIT ESTAB PT LEVEL 4 STLMLC STLMLC [id number] [facility] 2022-08-30 00:00:00 2022-08-30 00:00:00 (TEL) STLMLC STLMLC [id number] [facility] 2022-08-24 00:00:00 2022-08-24 00:00:00 OFFICE VISIT ESTAB PT LEVEL 4 STLMLC STLMLC [id number] [facility] 2022-08-16 00:00:00 2022-08-16 00:00:00 (TEL) STLMLC STLMLC [id number] [facility] 2022-08-16 00:00:00 2022-08-16 00:00:00 OFFICE VISIT EST PT LEVEL 3 STLMLC STLMLC [id number] [facility] 2022-07-26 00:00:00 2022-07-26 00:00:00 OFFICE VISIT EST PT LEVEL 3 STLMLC STLMLC [id number] [facility] 2022-07-25 00:00:00 2022-07-25 00:00:00 (TEL) STLMLC STLMLC [id number] [facility] 2022-07-08 00:00:00 2022-07-08 00:00:00 (TEL) STLMLC STLMLC [id number] [facility] 2022-07-08 00:00:00 2022-07-08 00:00:00 OFFICE VISIT ESTAB PT LEVEL 2 STLMLC STLMLC [id number] [facility] 2022-06-22 00:00:00 2022-06-22 00:00:00 (TEL) STLMLC STLMLC [id number] [facility] 2022-05-30 00:00:00 2022-05-30 00:00:00 (TEL) STLMLC STLMLC [id number] [facility] 2022-05-20 00:00:00 2022-05-20 00:00:00 OFFICE VISIT ESTAB PT LEVEL 4 STLMLC STLMLC [id number] [facility] 2022-04-28 00:00:00 2022-04-28 00:00:00 PREV VISIT EST AGE 18-39 STLMLC STLMLC [id number] [facility] 2022-04-28 00:00:00 2022-04-28 00:00:00 (TEL) STLMLC STLMLC [id number] [facility] 2022-03-30 00:00:00 2022-03-30 00:00:00 (TEL) STLMLC STLMLC [id number] [facility] 2022-03-30 00:00:00 2022-03-30 00:00:00 OFFICE VISIT ESTAB PT LEVEL 4 STLMLC STLMLC [id number] [facility] 2022-03-29 00:00:00 2022-03-29 00:00:00 (TEL) STLMLC STLMLC [id number] [facility] 2022-02-24 00:00:00 2022-02-24 00:00:00 OFFICE VISIT ESTAB PT LEVEL 4 STLMLC STLMLC [id number] [facility] 2022-01-26 00:00:00 2022-01-26 00:00:00 (TEL) STLMLC STLMLC [id number] [facility] 2022-01-20 00:00:00 2022-01-20 00:00:00 (TEL) STLMLC STLMLC [id number] [facility] 2022-01-20 00:00:00 2022-01-20 00:00:00 (TEL) STLMLC STLMLC [id number] [facility] 2022-01-19 00:00:00 2022-01-19 00:00:00 (TEL) STLMLC STLMLC [id number] [facility] 2022-01-19 00:00:00 2022-01-19 00:00:00 OFFICE VISIT EST PT LEVEL 3 STLMLC STLMLC [id number] [facility] 2021-12-23 00:00:00 2021-12-23 00:00:00 (TEL) STLMLC STLMLC [id number] [facility] 2021-12-23 00:00:00 2021-12-23 00:00:00 (TEL) STLMLC STLMLC [id number] [facility] 2021-12-22 00:00:00 2021-12-22 00:00:00 OFFICE VISIT ESTAB PT LEVEL 4 STLMLC STLMLC [id number] [facility] 2021-12-22 00:00:00 2021-12-22 00:00:00 (TEL) STLMLC STLMLC [id number] [facility] 2021-11-03 00:00:00 2021-11-03 00:00:00 (TEL) STLMLC STLMLC [id number] [facility] 2021-11-02 00:00:00 2021-11-02 00:00:00 (TEL) STLMLC STLMLC [id number] [facility] 2021-09-22 00:00:00 2021-09-22 00:00:00 OFFICE VISIT ESTAB PT LEVEL 4 STLMLC STLMLC [id number] [facility] 2021-08-05 00:00:00 2021-08-05 00:00:00 OFFICE VISIT EST PT LEVEL 3 STLMLC STLMLC [id number] [facility] 2021-08-05 00:00:00 2021-08-05 00:00:00 (TEL) STLMLC STLMLC [id number] [facility] 2021-08-04 11:11:00 2021-08-04 14:06:00 Emergency Armond Moore [facility] 1..840.114 350.1.13.10 4.2.7.2.686 [id number] [facility] 2021-08-04 00:00:00 2021-08-04 00:00:00 (TEL) STLMLC STLMLC [id number] [facility] 2021-08-03 00:00:00 2021-08-03 00:00:00 (TEL) STLMLC STLMLC [id number] [facility] 2021-06-23 00:00:00 2021-06-23 00:00:00 Outpatient STLMLC STLMLC [id number] [facility] 2021-06-08 00:00:00 2021-06-08 00:00:00 Outpatient STLMLC STLMLC [id number] [facility] 2021-06-07 00:00:00 2021-06-07 00:00:00 Outpatient STLMLC STLMLC [id number] [facility] 2021-06-03 00:00:00 2021-06-03 00:00:00 Outpatient STLMLC STLMLC [id number] [facility] 2021-05-31 00:00:00 2021-05-31 00:00:00 Outpatient STLMLC STLMLC [id number] [facility] 2021-05-31 00:00:00 2021-05-31 00:00:00 Outpatient STLMLC STLMLC [id number] [facility] 2021-05-20 12:07:00 2021-05-20 16:13:00 Emergency Trev, Blaine Troy [facility] 1..840.114 350.1.13.10 4.2.7.2.686 [id number] [facility] 2021-05-20 00:00:00 2021-05-20 00:00:00 Orders Only Doctor Unassigned, [place] [facility] 1..840.114 350.1.13.10 4.2.7.2.686 [id number] [facility] 2021-05-20 00:00:00 2021-05-20 00:00:00 Outpatient STLMLC STLMLC [id number] [facility] 2021-03-23 00:00:00 2021-03-23 00:00:00 Outpatient STLMLC STLMLC [id number] [facility] 2021-02-25 00:00:00 2021-02-25 00:00:00 Outpatient STLMLC STLMLC [id number] [facility] 2021-02-22 00:00:00 2021-02-22 00:00:00 Outpatient STLMLC STLMLC [id number] [facility] 2021-02-18 00:00:00 2021-02-18 00:00:00 Outpatient STLMLC STLMLC [id number] [facility] 2021-01-27 00:00:00 2021-01-27 00:00:00 Outpatient STLMLC STLMLC [id number] [facility] 2021-01-27 00:00:00 2021-01-27 00:00:00 Outpatient STLMLC STLMLC [id number] [facility] 2021-01-21 13:11:00 2021-01-21 16:40:00 Emergency Sandee Guillen [facility] 1.2.840.114 350.1.13.10 4.2.7.2.686 [id number] [facility] 2021-01-21 13:11:00 2021-01-21 16:40:00 Emergency X SANDEE GUILLEN [facility] [id number] [facility] 2021-01-20 00:00:00 2021-01-20 00:00:00 Outpatient STLMLC STLMLC [id number] [facility] 2021-01-20 00:00:00 2021-01-20 00:00:00 Outpatient STLMLC STLMLC [id number] [facility] 2021-01-11 00:00:00 2021-01-11 00:00:00 Patient Outreach Tim Monae [facility] 1.2.840.114 350.1.13.10 4.2.7.2.686 [id number] [facility] 2020-12-21 00:00:00 2020-12-21 00:00:00 Outpatient STLMLC STLMLC [id number] [facility] 2020-11-12 00:00:00 2020-11-12 00:00:00 Outpatient STLMLC STLMLC [id number] [facility] 2020-11-12 00:00:00 2020-11-12 00:00:00 Outpatient STLMLC STLMLC [id number] [facility] 2020-10-26 00:00:00 2020-10-26 00:00:00 Outpatient STLMLC STLMLC [id number] [facility] 2020-10-20 07:39:00 2020-10-20 09:57:00 Emergency Sergio Aris [facility] 1.2.840.114 350.1.13.10 4.2.7.2.686 [id number] [facility] 2020-10-14 00:00:00 2020-10-14 00:00:00 Outpatient STLMLC STLMLC [id number] [facility] 2020-10-06 00:00:00 2020-10-06 00:00:00 Outpatient STLMLC STLMLC [id number] [facility] 2020-10-01 00:00:00 2020-10-01 00:00:00 Outpatient STLMLC STLMLC [id number] [facility] 2020-09-21 00:00:00 2020-09-21 00:00:00 Outpatient STLMLC STLMLC [id number] [facility] 2020-08-05 00:00:00 2020-08-05 00:00:00 Outpatient STLMLC STLMLC [id number] [facility] 2020-08-04 00:00:00 2020-08-04 00:00:00 Outpatient STLMLC [facility]MLC [id number] [facility] 2020-07-16 00:00:00 2020-07-16 00:00:00 Letter (Out) Li Hernandez [facility] 1.2.840.114 350.1.13.10 4.2.7.2.686 [id number] [facility] 2020-07-15 16:40:00 2020-07-15 18:23:00 Emergency Clarence Weiss [facility] 1.2.840.114 350.1.13.10 4.2.7.2.686 [id number] [facility] 2020-07-15 00:00:00 2020-07-15 00:00:00 Outpatient STLMLC STLMLC [id number] [facility] 2020-07-15 00:00:00 2020-07-15 00:00:00 Outpatient STLMLC STLMLC [id number] [facility] 2020-07-09 08:20:00 2020-07-09 08:20:[address] [facility] [id number] [facility] 2020-06-23 13:38:00 2020-06-23 13:38:[address] [facility] [id number] [facility] 2020-06-08 16:00:00 2020-06-08 16:00:00 [facility] [id number] [facility] 2020-06-02 16:31:00 2020-06-02 16:31:00 [address] [facility] [id number] [facility] 2020-06-02 08:30:00 2020-06-02 08:30:00 Out[facility] [id number] [facility] 2020-06-01 10:46:00 2020-06-01 10:46:00 Outpatient [facility] [id number] [facility] 2020-04-27 13:00:00 2020-04-27 13:00:00 [facility] [id number] [facility] 2020-03-25 16:45:00 2020-03-25 16:45:00 [facility] [id number] [facility] 2020-02-26 14:15:00 2020-02-26 14:15:00 [facility] [id number] [facility] 2020-01-29 00:00:00 2020-01-29 00:00:00 Telephone Adum, Alyssa Muir [address]840.114 350.1.13.10 4.2.7.2.686 [id number] 134 [id number] [facility] 2020-01-29 00:00:00 2020-01-29 00:00:00 Refill Doctor Unassigned, [place] [address]840.114 350.1.13.10 4.2.7.2.686 [id number] [facility] 2020-01-29 00:00:00 2020-01-29 00:00:00 Patient Secure Msg Doctor Unassigned, [place] [address]840.114 350.1.13.10 4.2.7.2.686 [id number] [facility] 2020-01-29 00:00:00 2020-01-29 00:00:00 Patient Secure Msg Doctor Unassigned, [place] [facility] 1.2.840.114 350.1.13.10 4.2.7.2.686 [id number] [facility] 2020-01-29 00:00:00 2020-01-29 00:00:00 Patient Secure Msg Doctor Unassigned, [place] [facility] 1.2.840.114 350.1.13.10 4.2.7.2.686 [id number] [facility] 2020-01-29 00:00:00 2020-01-29 00:00:00 Patient Secure Msg Doctor Unassigned, [place] [facility] 1.2.840.114 350.1.13.10 4.2.7.2.686 [id number] [facility] 2020-01-17 08:20:35 2020-01-17 16:41:15 Telemedici ne Visit Jhon Sondra [facility] 1.2.840.114 350.1.13.10 4.2.7.2.686 [id number] [facility] 2020-01-17 13:15:00 2020-01-17 13:15:00 Outpatient R SONDRA CHAVIRA MICHAEL [facility] [id number] [facility] 2020-01-17 00:00:00 2020-01-17 00:00:00 Telephone Jhon Sondra [facility] 1.2.840.114 350.1.13.10 4.2.7.2.686 [id number] [facility] 2020-01-07 00:00:00 2020-01-07 00:00:00 Telephone Jhon Sondra [facility] 1.2.840.114 350.1.13.10 4.2.7.2.686 [id number] [facility] 2020-01-06 00:00:00 2020-01-06 00:00:00 Telephone [facility]ondra [facility] 1.2.840.114 350.1.13.10 4.2.7.2.686 [id number] [facility] 2020-01-03 08:46:00 2020-01-03 15:02:00 Hospital Encounter Sondra Chavira [facility] 1.2.840.114 350.1.13.10 4.2.7.2.686 [id number] [facility] 2019-11-29 15:59:09 2020-01-03 14:53:01 Office Visit Sondra Chavira [facility] 1.2.840.114 350.1.13.10 4.2.7.2.686 [id number] [facility] 2020-01-03 00:00:00 2020-01-03 00:00:00 Orders Only Doctor Unassigned, [place] [facility] 1.2.840.114 350.1.13.10 4.2.7.2.686 [id number] [facility] 2019-12-30 00:00:00 2019-12-30 00:00:00 [facility] Building 1.2.840.114 350.1.13.10 4.2.7.2.686 [id number] 134 [id number] [facility] 2019-12-27 16:00:00 2019-12-27 16:00:00 Outpatient R SONDRA CHAVIRA MICHAEL [facility] [id number] [facility] 2019-12-10 00:00:00 2019-12-10 00:00:00 Case Management Sondra Chavira [facility] 1.2.840.114 350.1.13.10 4.2.7.2.686 [id number] 134 [id number] [facility] 2019-12-05 00:00:00 2019-12-05 00:00:00 Telephone Sondra Chavira [facility] 1.2.840.114 350.1.13.10 4.2.7.2.686 [id number] 134 [id number] [facility] 2019-12-02 00:00:00 2019-12-02 00:00:00 Prep For Surgery Carmen Kennedy [facility] 1.2.840.114 350.1.13.10 4.2.7.2.686 [id number] 134 [id number] [facility] 2019-12-02 00:00:00 2019-12-02 00:00:00 Telephone Sondra Chavira [facility] 1.2.840.114 350.1.13.10 4.2.7.2.686 [id number] 134 [id number] [facility] 2019-12-01 00:00:00 2019-12-01 00:00:00 Case Management Sondra Chavira [facility] 1.2.840.114 350.1.13.10 4.2.7.2.686 [id number] 134 [id number] [facility] 2019-11-29 16:00:00 2019-11-29 17:56:19 Outpatient R JHONSONDRA JHONSONDRA [facility] [id number] [facility] 2019-11-29 00:00:00 2019-11-29 00:00:00 Orders Only Doctor Unassigned, [place] [facility] 1.2.840.114 350.1.13.10 4.2.7.2.686 [id number] [facility] 2019-11-19 00:00:00 2019-11-19 00:00:00 Telephone Sondra Chavira [facility] [place] [facility] Richardreplaced by [facility] 1.2.840.114 350.1.13.10 4.2.7.2.686 [id number] 134 [id number] [facility] 2019-11-18 00:00:00 2019-11-18 00:00:00 Telephone Sondra Chavira [facility] [facility] 1.2.840.114 350.1.13.10 4.2.7.2.686 [id number] 134 [id number] [facility] 2019-11-15 17:30:16 2019-11-15 17:45:16 Global Sourcing Manager Visit Pob, Adc Lab Main Sondra Chavira [facility] 1.2.840.114 350.1.13.10 4.2.7.2.686 [id number] [facility] 2019-11-15 16:00:41 2019-11-15 17:19:59 Office [facility] 1.2.840.114 350.1.13.10 4.2.7.2.686 [id number] 134 [id number] [facility] 2019-11-15 00:00:00 2019-11-15 00:00:00 Orders Only Doctor Unassigned, [place] [facility] 1.2.840.114 350.1.13.10 4.2.7.2.686 [id number] [facility] 2019-11-12 00:00:00 2019-11-12 00:00:00 Telephone Sondra Chavira [facility] 1.2.840.114 350.1.13.10 4.2.7.2.686 [id number] 134 [id number] [facility] 2019-09-24 08:45:00 2019-09-24 08:45:00 [facility] Medicine [facility] [id number] [facility] 2019-08-13 09:15:00 2019-08-13 09:15:00 Outpatient [facility] [id number] [facility] 2019-07-24 15:00:00 2019-07-24 15:00:00 [facility] [id number] [facility] 2019-07-08 10:56:00 2019-07-08 10:56:00 [facility] [id number] [facility] 2019-06-11 10:15:00 2019-06-11 10:15:00 [facility] [id number] [facility] 2019-06-07 09:59:31 2019-06-07 10:24:10 Nurse Visit Nurse, [facility] Sondra Chavira [facility] 1.2.840.114 350.1.13.10 4.2.7.2.686 [id number] 134 [id number] [facility] 2019-04-30 13:30:00 2019-04-30 13:30:00 Outpatient [facility] [id number] [facility] Results Test Description Test Time Test Comments Results Result Co mments Source [facility] [id number] 21:36:00Aris Hill MD ? ? 06/08/2024 ?7:50 [...] separately billable procedures and treating other patients.[facility] W/AUTO [id number] 00:00:00* Test Item Value Reference Range Interpretation Comme nts NUCLEATED RBCS (test code = 81451-7) 0.0 /100 WBC'S See_Comment [Automated messa ge] The system which generated this result transmitted reference range: 0.0 /100 WBC'S. The reference range was not used to interpret this result as normal/abnormal. ABSOLUTE EOSINOPHILS (test code = 17166-9) 0.23 K/UL See_Comment [Automated messa ge] The system which generated this result transmitted reference range: 0.00-0.50 K/UL. The reference range was not used to interpret this result as normal/abnormal. ABSOLUTE LYMPHOCYTES (test code = 94179-4) 3.50 K/UL See_Comment [Automated messa ge] The system which generated this result transmitted reference range: 1.00-4.00 K/UL. The reference range was not used to interpret this result as normal/abnormal. ABSOLUTE MONOCYTES (test code = 17730-9) 0.45 K/UL See_Comment [Automated messa ge] The system which generated this result transmitted reference range: 0.20-1.00 K/UL. The reference range was not used to interpret this result as normal/abnormal. ABSOLUTE NEUTROPHILS (test code = 19209-9) 5.34 K/UL See_Comment [Automated messa ge] The system which generated this result transmitted reference range: 1.50-7.50 K/UL. The reference range was not used to interpret this result as normal/abnormal. BASOPHILS (test code = 81918-6) 0.7 % EOSINOPHILS (test code = 38301-8) 2.4 % HEMATOCRIT (test code = 61436-4) 34.3 % See_Comment [Automated messa ge] The [...] result as normal/abnormal. LYMPHOCYTES (test code = 17943-5) 36.4 % MCH (test code = 84301-0) 30.4 PG See_Comment [Automated messa ge] The system which generated this result transmitted reference range: 25.0-33.0 PG. The reference range was not used to interpret this result as normal/abnormal. MCHC (test code = 09775-1) 32.9 G/DL See_Comment [Automated messa ge] The system which generated this result transmitted reference range: 31.0-36.0 G/DL. The reference range was not used to interpret this result as normal/abnormal. MCV (test code = 00421-2) 92.2 fL See_Comment [Automated messa ge] The system which generated this result transmitted reference range: 80.0-99.0 fL. The reference range was not used to interpret this result as normal/abnormal. MONOCYTES (test code = 11564-1) 4.7 % NEUTROPHILS (test code = 37748-7) 55.5 % PLATELET COUNT (test code = 97951-1) 344 K/UL See_Comment [Automated messa ge] The system which generated this result transmitted reference range: 130-400 K/UL. The reference range was not used to interpret this result as normal/abnormal. RBC (test code = 12273-2) 3.72 M/UL See_Comment L [Automated messa ge] The system which generated this result transmitted reference range: 3.80-5.40 M/UL. The reference range was not used to interpret this result as normal/abnormal. RDW (test code = 03001-3) 11.8 % See_Comment [Automated messa ge] The system which generated this result transmitted reference range: 11.5-15.0 %. The reference range was not used to interpret this result as normal/abnormal. WBC (test code = 62979-6) 9.6 K/UL See_Comment [Automated messa ge] The system which generated this result transmitted reference range: 3.5-11.0 K/UL. The reference range was not used to interpret this result as normal/abnormal. STREP A [id number] 00:00:00ResultCOMP. METABOLIC PANEL (82440)2021-08-04 17:13:25* Test Item Value Reference Range Interpretation Comme nts NA (test code = 2169135103) 139 mmol/L 135-145 K (test code = 7570273026) 4.2 mmol/L 3.5-5.0 CL (test code = 4334738427) 109 mmol/L 98-108 H CO2 TOTAL (test code = 2436403381) 20 mmol/L 23-31 L AGAP (test code = 3233751358) 2-16 BUN (test code = 2033273252) 10 mg/dL 7-23 GLUCOSE (test code = 1963020754) 100 mg/dL 70-110 CREATININE (test code = 8260576403) 0.57 mg/dL 0.50-1.04 TOTAL BILI (test code = 3797996557) 0.4 mg/dL 0.1-1.1 CALCIUM (test code = 8803121645) 9.4 mg/dL 8.6-10.6 T PROTEIN (test code = 3405202837) 7.2 g/dL 6.3-8.2 ALBUMIN (test code = 8889355490) 4.5 g/dL 3.5-5.0 ALK PHOS (test code = 4485360360) 76 U/L 34-122 ALTv (test code = 1742-6) 22 U/L 5-35 AST(SGOT) (test code = 5246283433) 26 U/L 13-40 eGFR (test code = 8567925225) mL/min/1.73m2 NAHUM (test code = NAHUM) Association [...] imaging tests). Lab Interpretation (test code = 22978-0) [facility]normal [facility] 17:12:44* Test Item Value Reference Range Interpretation Comme nts LIPASE (test code = 7746793854) 74 U/L 0-220 Lab Interpretation (test cod e = 85954-5) Normal [facility] WITH [id number] 17:00:06* Test Item Value Reference Range Interpretation Comme nts WBC (test code = 6690-2) See_Comment [Automated Weele] The system which generated this result transmitted [...] 32.5 g/dL 31.6-35.1 RDW-SD (test code = 02198-1) 41.0 fL 39.0-49.9 RDW-CV (test code = 788-0) 12.2 % 12.0-15.5 PLT (test code = 777-3) See_Comment H [Automated [employer] ge] The system which generated this result transmitted reference range: 166 - 358 10*3/?L. The reference range was not used to interpret this result as normal/abnormal. MPV (test code = 75551-7) 10.0 fL 9.5-12.9 NRBC/100 WBC (test code = 9685332838) See_Comment [Automated [employer] ssage] The system which generated this result transmitted reference range: 0.0 - 10.0 /100 WBCs. The reference range was not used to interpret this result as normal/abnormal. NRBC x10^3 (test code = 8204248719) <0.01 See_Comment [Automated [employer] ge] The system which generated this result transmitted reference range: 10*3/?L. The reference range was not used to interpret this result as normal/abnormal. GRAN MAT (NEUT) % (test code = 770-8) 57.4 % IMM GRAN % (test code = 4699192457) 0.30 % LYMPH % (test code = 736-9) 34.0 % MONO % (test code = 5905-5) 5.5 % EOS % (test code = 713-8) 1.9 % BASO % (test code = 706-2) 0.9 % GRAN MAT x10^3(ANC) (test code = 1144686470) 6.05 10*3/uL 1.88-7.09 IMM GRAN x10^3 (test code = 8804328497) 0.03 10*3/uL 0.00-0.06 LYMPH x10^3 (test code = 731-0) 3.59 10*3/uL 1.32-3.29 H MONO x10^3 (test code = 742-7) 0.58 10*3/uL 0.33-0.92 EOS x10^3 (test code = 711-2) 0.20 10*3/uL 0.03-0.39 BASO x10^3 (test code = 704-7) 0.10 10*3/uL 0.01-0.07 H Lab Interpretation (test code = 38882-9) Abnormal [facility] KNEE RIGHT WO [id number] 19:58:17No evidence of fracture or traumatic malalignment. [...] traumatic malalignment.No joint effusion.RL: 4400End of report UnCH[facility] TylerXR KNEE 3 VW [id number] 17:44:46Questionable lateral tibial plateau fracture with knee [...] characterized with a CT scan of the knee.Osteoarthrosis.[facility]manUrinalysis 2021-01-21 21:26:51* Test Item Value Reference Range Interpretation Comme nts APPEARANCE (test code = 4616301681) Hazy Clear A COLOR (test code = 1090936762) Yellow Yellow PH (test code = 2279469867) 4.8-8.0 SP GRAVITY (test code = 4573458417) 1.003-1.030 GLU U QUAL (test code = 3933118120) Normal Normal BLOOD (test code = 4535424202) 2+ Negative A KETONES (test code = 4182838577) 5 mg/dL Negative A PROTEIN (test code = 2887-8) Negative Negative UROBILIN (test code = 8726525266) Normal Normal BILIRUBIN (test code = 1256035352) Negative Negative NITRITE (test code = 8911118365) Negative Negative LEUK CHRIS (test code = 7877496923) Negative Negative RBC/HPF (test code = 7554937870) See_Comment H [Automated [employer] ge] The system which generated this result transmitted reference range: 0 - 3 HPF. The reference range was not used to interpret this result as normal/abnormal. WBC/HPF (test code = 9452406602) See_Comment [Automated [employer] ge] The system which generated this result transmitted reference range: 0 - 5 HPF. The reference range was not used to interpret this result as normal/abnormal. BACTERIA (test code = 5638106402) Few Negative A MUCOUS (test code = 8615201129) Moderate Negative LPF A SQ EPITH (test code = 1306766884) HPF Lab Interpretation (test code = 48416-3) Abnormal [facility] Metabolic Panel (NA, K, CL, CO2, GLUCOSE, BUN, CREATININE, CA)2021-01-21 20:06:25* Test Item Value Reference Range Interpretation Comme nts NA (test code = 3092670179) 139 mmol/L 135-145 K (test code = 8883334411) 3.9 mmol/L 3.5-5.0 CL (test code = 9019722928) 105 mmol/L 98-108 CO2 TOTAL (test code = 9619017501) 25 mmol/L 23-31 AGAP (test code = 4899568052) 2-16 BUN (test code = 5111985198) 14 mg/dL 7-23 GLUCOSE (test code = 1996495010) 96 mg/dL 70-110 CREATININE (test code = 8563723991) 0.69 mg/dL 0.50-1.04 CALCIUM (test code = 4471220371) 9.4 mg/dL 8.6-10.6 eGFR (test code = 0567387813) mL/min/1.73m2 NAHUM (test code = NAHUM) Association [...] urine or abnormalities in imaging tests). [facility] with Bhefwkdxzohy5344-04-81 19:53:28* Test Item Value Reference Range Interpretation Comme nts WBC (test code = 6690-2) See_Comment H [Automated [employer]] The system which generated this result transmitted reference range: 4.30 - 11.10 10*3/?L. The reference range was not used to interpret this result as normal/abnormal. RBC (test code = 789-8) See_Comment [[employer]] The system which generated this result transmitted [...] 33.2 g/dL 31.6-35.1 RDW-SD (test code = 41528-1) 39.5 fL 39.0-49.9 RDW-CV (test code = 788-0) 12.1 % 12.0-15.5 PLT (test code = 777-3) See_Comment H [Automated messa ge] The system which generated this result transmitted reference range: 166 - 358 10*3/?L. The reference range was not used to interpret this result as normal/abnormal. MPV (test code = 35747-1) 9.3 fL 9.5-12.9 L NRBC/100 WBC (test code = 2407317792) See_Comment [Automated [employer] ssage] The system which generated this result transmitted reference range: 0.0 - 10.0 /100 WBCs. The reference range was not used to interpret this result as normal/abnormal. NRBC x10^3 (test code = 8565698003) <0.01 See_Comment [Automated messa ge] The system which generated this result transmitted reference range: 10*3/?L. The reference range was not used to interpret this result as normal/abnormal. GRAN MAT (NEUT) % (test code = 770-8) 80.9 % IMM GRAN % (test code = 7570635426) 0.30 % LYMPH % (test code = 736-9) 10.6 % MONO % (test code = 5905-5) 6.5 % EOS % (test code = 713-8) 0.9 % BASO % (test code = 706-2) 0.8 % GRAN MAT x10^3(ANC) (test code = 5511757998) 9.40 10*3/uL 1.88-7.09 H IMM GRAN x10^3 (test code = 1725209182) 0.04 10*3/uL 0.00-0.06 LYMPH x10^3 (test code = 731-0) 1.23 10*3/uL 1.32-3.29 L MONO x10^3 (test code = 742-7) 0.76 10*3/uL 0.33-0.92 EOS x10^3 (test code = 711-2) 0.11 10*3/uL 0.03-0.39 BASO x10^3 (test code = 704-7) 0.09 10*3/uL 0.01-0.07 H Lab Interpretation (test code = 17781-9) [facility]normal [facility] (ID NOW RAPID TESTING)2021-01-21 19:10:38* Test Item Value Reference Range Interpretation Comme nts SARS-CoV-2 Rapid ID NOW (test code = 70851-2) Not Detected Not Detected NAHUM (test code = NAHUM) ID NOW COVID-19 As say is an isothermal nucleic acid amplification test intended for the qualitative detection of nucleic acid from SARS-CoV-2 viral RNA in nasopharyngeal (TOE CLOSING MACHINE TENDER) specimens. It is used under Emergency Use [...] clinically indicated. Lab Interpretation (test code = 75829-4) Normal [facility]XR CHEST 1 [id number] 18:35:43HISTORY: Cough and SOB. FINDINGS: ?AP view [...] of mid right claviclenoted.CONCLUSIONS: No acute cardiopulmonary disease.[facility]CT ANGIOGRAM [id number] 15:41:05Normal CT neckCT ANGIOGRAM NECK HISTORY: Female [...] from their subclavian originsthrough the vertebrobasilar junction. [facility], Radiant Results Inft User - 10/20/2020 9:42 [...] subclavian originsthrough the vertebro basilar junction.IMPRESSIONNormal CT neckUnCHRISTUS Mother [facility] Hospital – TyleraPTT 2020-10-20 15:07:00* Test Item Value Reference Range Interpretation Comme [facility] APTT Patient (test code = 3173-2) See_Comment [Automated message] The system which generated this result transmitted reference range: 23 - 38 Seconds. The reference range was not used to interpret this result as normal/abnormal. NAHUM (test code = NAHUM) The [facility] patient population mean normal value for aPTT is 30 seconds. Lab Interpretation (test code = 25067-7) Normal [facility]aufmanProthrombin Time (PT) / [id number] 15:05:00 * Test Item Value Reference Range Interpretation Comme [facility] PROTIME PATIENT (test code = 5964-2) See_Comment [Automated messa ge] The system which generated this result transmitted reference range: 12.0 - 14.7 Seconds. The reference range was not used to interpret this result as normal/abnormal. INR (test code = 6301-6) Normal INR <1.1; Warfarin Therapeutic range 2.0 to 3.0 or 2.5 to 3.5, depending upon the indications. Lab Interpretation (test code = 04448-0) Normal [facility]man[facility]asi Metabolic Panel (NA, K, CL, CO2, GLUCOSE, BUN, CREATININE, CA)2020-10-20 14:21:00* Test Item Value Reference Range Interpretation Comme [facility] NA (test code = 2553348588) 140 mmol/L 135-145 K (test code = 6678044520) 3.8 mmol/L 3.5-5 CL (test code = 6532502674) 106 mmol/L 98-108 CO2 TOTAL (test code = 6592825600) 25 mmol/L 23-31 AGAP (test code = 8378336309) 2-16 BUN (test code = 4601850265) 15 mg/dL 7-23 GLUCOSE (test code = 7246375657) 108 mg/dL 70-110 CREATININE (test code = 3791341766) 0.65 mg/dL 0.5-1.04 CALCIUM (test code = 9511935251) 9.2 mg/dL 8.6-10.6 eGFR Calculation (Non-) (test code = 1521276279) mL/min/1.73m2 eGFR Calculation () (test code = 1222880187) mL/min/1.73m2 NAHUM (test code = NAHUM) Association [...] or urine or abnormalities in imaging tests). [facility]manHepatic Function Panel (ALB, T.PRO, BILI T, BU/BC, ALT, AST, ALK PHOS)2020-10-20 14:20:00* Test Item Value Reference Range Interpretation Comme nts TOTAL BILI (test code = 3793007150) 0.4 mg/dL 0.1-1.1 BILI UNCON (test code = 4211536909) 0.3 mg/dL 0.1-1.1 BILI CONJ (test code = 1704176360) 0.0 mg/dL 0-0.3 T PROTEIN (test code = 8735691815) 7.3 g/dL 6.3-8.2 ALBUMIN (test code = 3454497837) 4.2 g/dL 3.5-5 ALK PHOS (test code = 8755968009) 96 U/L 34-122 ALTv (test code = 1742-6) 21 U/L 5-35 AST(SGOT) (test code = 9608914090) 23 U/L 13-40 Lab Interpretation (test cod e = 78009-5) Normal [facility] with Nopfrbzzsfli7762-26-17 14:08:00* Test Item Value Reference Range Interpretation Comme nts WBC (test code = 6690-2) See_Comment [Automated [employer]] The system which generated this result transmitted reference range: 4.30 - 11.10 10*3/?L. The reference range was not used to interpret this result as normal/abnormal. RBC (test code = 789-8) See_Comment [Automated [employer]] The system which generated this result transmitted [...] 31.9 g/dL 31.6-35.1 RDW-SD (test code = 80754-6) 41.2 fL 39-49.9 RDW-CV (test code = 788-0) 12.3 % 12-15.5 PLT (test code = 777-3) See_Comment H [Automated messa ge] The system which generated this result transmitted reference range: 166 - 358 10*3/?L. The reference range was not used to interpret this result as normal/abnormal. MPV (test code = 82901-9) 9.2 fL 9.5-12.9 L NRBC/100 WBC (test code = 9701299664) See_Comment [Automated me ssage] The system which generated this result transmitted reference range: 0.0 - 10.0 /100 WBCs. The reference range was not used to interpret this result as normal/abnormal. NRBC x10^3 (test code = 4264662052) <0.01 See_Comment [Automated messa ge] The system which generated this result transmitted reference range: 10*3/?L. The reference range was not used to interpret this result as normal/abnormal. GRAN MAT (NEUT) % (test code = 770-8) 51.8 % IMM GRAN % (test code = 6476322628) 0.30 % LYMPH % (test code = 736-9) 36.1 % MONO % (test code = 5905-5) 7.0 % EOS % (test code = 713-8) 3.8 % BASO % (test code = 706-2) 1.0 % GRAN MAT x10^3(ANC) (test code = 0951506466) 4.85 10*3/uL 1.88-7.09 IMM GRAN x10^3 (test code = 2371234079) 0.03 10*3/uL 0-0.06 LYMPH x10^3 (test code = 731-0) 3.39 10*3/uL 1.32-3.29 H MONO x10^3 (test code = 742-7) 0.66 10*3/uL 0.33-0.92 EOS x10^3 (test code = 711-2) 0.36 10*3/uL 0.03-0.39 BASO x10^3 (test code = 704-7) 0.09 10*3/uL 0.01-0.07 H Lab Interpretation (test code = 99281-3) Abnormal [facility] [id number] 14:00:00* Test Item Value Reference Range Interpretation Comme nts POCT PREG (test code = 1605) negative On board controls acceptable with C Line (test code = 3574) present POCT PREG LOT # (test code = 3575) [id number] POCT PREG TEST DATE ( test code = 3576) 2022-02-19 Lab Interpretation (test cod e = 93254-8) Normal [facility]aufmanRAPID STREP SCREEN FOR GROUP [id number] 22:32:00* Test Item Value Reference Range Interpretation Comme nts Streptococcus pyogenes (grou p A) antigen (test code = 20731-3) Negative Negative Lab Interpretation (test cod e = 45066-5) Normal [facility]manType and Screen - The Type and Screen [...] code = 20) A Positive Performed at [facility] Laboratory [facility] Blood [address] [place] [address] Free: [phone] No. [id number] IAT (test code = 1185) Negative Performed at [facility] Blood [place] [address]Toll Free: [phone] No. [id number] [facility]manBASI METABOLIC PANEL (NA, K, CL, CO2, GLUCOSE, BUN, CREATININE, CA)2020-01-03 15:12:00* Test Item Value Reference Range Interpretation Comme nts NA (test code = 2310410588) 140 mmol/L 135-145 K (test code = 0493343763) 3.8 mmol/L 3.5-5 CL (test code = 4654960951) 111 mmol/L 98-108 H CO2 TOTAL (test code = 9304522392) 22 mmol/L 23-31 L AGAP (test code = 3387639793) 2-16 BUN (test code = 3751266692) 15 mg/dL 7-23 GLUCOSE (test code = 8216388406) 110 mg/dL 70-110 CREATININE (test code = 7179076992) 0.60 mg/dL 0.5-1.04 CALCIUM (test code = 8415570361) 8.8 mg/dL 8.6-10.6 eGFR Calculation (Non-) (test code = 8420397955) mL/min/1.73m2 eGFR Calculation () (test code = 7970118407) mL/min/1.73m2 NAHUM (test code = NAHUM) Association [...] imaging tests). Lab Interpretation (test code = 58806-3) Abnormal [facility] WITH [id number] 14:41:00* Test Item Value Reference Range Interpretation Comme nts WBC (test code = 6690-2) See_Comment [Automated messa ge] The system which generated this result transmitted reference range: 4.30 - 11.10 10*3/?L. The reference range was not used to interpret this result as normal/abnormal. RBC (test code = 789-8) See_Comment L [Automated messa ge] The system [...] 33.1 g/dL 31.6-35.1 RDW-SD (test code = 08394-5) 39.9 fL 39-49.9 RDW-CV (test code = 788-0) 12.1 % 12-15.5 PLT (test code = 777-3) See_Comment [Automated messa ge] The system which generated this result transmitted reference range: 166 - 358 10*3/?L. The reference range was not used to interpret this result as normal/abnormal. MPV (test code = 44174-8) 9.2 fL 9.5-12.9 L NRBC/100 WBC (test code = 1741233050) See_Comment [Automated [employer] ssage] The system which generated this result transmitted reference range: 0.0 - 10.0 /100 WBCs. The reference range was not used to interpret this result as normal/abnormal. NRBC x10^3 (test code = 6204077076) <0.01 See_Comment [Automated messa ge] The system which generated this result transmitted reference range: 10*3/?L. The reference range was not used to interpret this result as normal/abnormal. GRAN MAT (NEUT) % (test code = 770-8) 58.5 % IMM GRAN % (test code = 0961061163) 0.30 % LYMPH % (test code = 736-9) 30.8 % MONO % (test code = 5905-5) 6.3 % EOS % (test code = 713-8) 3.1 % BASO % (test code = 706-2) 1.0 % GRAN MAT x10^3(ANC) (test code = 7321576738) 5.54 10*3/uL 1.88-7.09 IMM GRAN x10^3 (test code = 3338673254) 0.03 10*3/uL 0-0.06 LYMPH x10^3 (test code = 731-0) 2.92 10*3/uL 1.32-3.29 MONO x10^3 (test code = 742-7) 0.60 10*3/uL 0.33-0.92 EOS x10^3 (test code = 711-2) 0.29 10*3/uL 0.03-0.39 BASO x10^3 (test code = 704-7) 0.09 10*3/uL 0.01-0.07 H Lab Interpretation (test code = 59998-0) Abnormal [facility] [id number] 14:03:00* Test Item Value Reference Range Interpretation Comme nts POCT PREG (test code = 1605) Negative On board controls acceptable with C Line (test code = 3574) Yes POCT PREG LOT # (test code = 3575) POCT PREG TEST DATE ( test code = 3576) Lab Interpretation (test cod e = 75188-6) Normal [facility] [id number] 22:54:00* Test Item Value Reference Range Interpretation Comme nts POCT PREG (test code = 1605) Negative On board controls acceptable with C Line (test code = 3574) Yes POCT PREG LOT # (test code = 3575) POCT PREG TEST DATE ( test code = 3576) [facility] [id number] 22:54:00* Test Item Value Reference Range Interpretation Comme nts POCT PREG (test code = 1605) Negative On board controls acceptable with C Line (test code = 3574) Yes POCT PREG LOT # (test code = 3575) POCT PREG TEST DATE ( test code = 3576) [facility], COVID 19 Antigen + Flu by [email or web address] Etiche, COVID 19 Antigen + Flu by Evette [...] 4 mg, Slow IV Push, Q4HPRN, Michelle Tonye MD, 4 mg at 06/13/241951 ondansetron (ZOFRAN [...] of comfort: N/A Code Status: Full [place] MECHANICAL LABORATORY TECHNICIAN was verified Disposition: Admit to OBS [facility] 2024-06-07 22:34:44 [facility] Hospitalist Admission H&P Date of Service: 06/07/2024 [...] N/A 01/03/2020 Surgeon: Sondra Chavira MD; Location: [facility] OR [facility] LAP W/TOT HYSTERECT <250GM W/TUBE/OVARY 01/03/2020 LAPAROSCOPIC TOTAL ABDOMINAL HYSTERECTOMY N/A 01/03/2020 Surgeon: Sondra Chavira MD; Location: [facility] OR [facility] REMOVAL OF FALLOPIAN TUBE 01/03/2020 SALPINGECTOMY Bilateral 01/03/2020 Surgeon: Sondra Chavira MD; Location: [facility] OR [facility] TUBAL LIGATION ALLERGIES Allergies Allergen Reactions Zoloft [...] user?: NO Patient will require observation [place] MECHANICAL LABORATORY TECHNICIAN was verified during stay Natacha Mesa MD IM-INTERNAL MEDICINE STAFF [facility] - Health Notes Date/Time Note Provider Source 2024-06-18 12:00:50 TRANSITIONAL CARE MANAGEMENT ASSESSMENT 06/18/2024 Gerard Leung [id number] Gerard Leung is a 39 year old /White female was admitted on 06/13/24 to [facility], [facility] SURG. She was discharged on 06/14/24 with discharge disposition of HR- Routine Discharge. Admitting Physician: Michelle Toney Discharge Diagnosis: Allergic reaction, unclear etiology No linked episodes TCM [id number] outreach documentation: Care Transition CM made f/u call to pt post-discharge x2. No response and call went to voicemail. CM left a discreet message with purpose of call and CM's call back information. Discharge Assessment Chart Assessed: 06/18/24 TCM Outreach Completed: 06/18/24 Future Appointments: Yoli Rhodes RN [facility] 2024-06-17 16:34:36 Care Transition CM made f/u call to pt post-discharge. No response and call went to voicemail. CM left a discreet message with purpose of call and CM's call back information. Yoli Rhodes RN, BSN Neon Sign Mechanic-Transitions of Care [phone] [facility] 2024-06-14 15:20:52 Patient now agreeable to discharge. Work note provided per request. Patient still not happy with care, but does not want to wait longer for the doctor would like to leave now. Lenard Gupta RN [facility] 2024-06-14 14:22:25 COA and TOE CLOSING MACHINE TENDER at bedside at this time. [facility] 2024-06-14 14:16:16 Problem: Pain Goal: Control of pain at or below patient's documented comfort goal 06/14/2024 1416 by Lenard Gupta RN Outcome: Adequate for discharge 06/14/2024 1232 by Lenard Gupta RN Outcome: Progressing as expected Problem: Discharge Planning Goal: Adequate for discharge 06/14/2024 1416 by Lenard Gupta RN Outcome: Adequate for discharge 06/14/2024 1232 by Lenard Gupta RN Outcome: Progressing as expected Problem: Skin integrity Impaired (Risk or Actual) Goal: Prevention of new skin breakdown 06/14/2024 1416 by Lenard Gupta RN Outcome: Adequate for discharge 06/14/2024 1232 by Lenard Gupta RN Outcome: Progressing as expected Problem: Venous Thromboembolism, (actual or risk of) Goal: Absence of venous thromboembolism (Risk) 06/14/2024 1416 by Lenard Gupta RN Outcome: Adequate for discharge 06/14/2024 1232 by Lenard Gupta RN Outcome: Progressing as expected Problem: Respiratory Function - Impaired Goal: Adequate work of breathing 06/14/2024 1416 by Lenard Gupta RN Outcome: Adequate for discharge 06/14/2024 1232 by Lenard Gupta RN Outcome: Progressing as expected [facility] 2024-06-14 14:05:04 Patient not agreeable to discharge. States that we are discharging her just because we do not know what is wrong with her. CRYSTAL Murphy notified symptoms and concerns reviewed. Per provider there is not more we can do for patient proceed with discharge. Dr. Toney notified. Orders for esgic received and given. Per MD proceed with discharge. Patient educated on orders continues to be upset with medicine staff. COA notified. To visit with patient. T [facility] 2024-06-14 12:32:19 Problem: Pain Goal: Control of pain at or below patient's documented comfort goal Outcome: Progressing as expected Problem: Discharge Planning Goal: Adequate for discharge Outcome: Progressing as expected Problem: Skin integrity Impaired (Risk or Actual) Goal: Prevention of new skin breakdown Outcome: Progressing as expected Problem: Venous Thromboembolism, (actual or risk of) Goal: Absence of venous thromboembolism (Risk) Outcome: Progressing as expected Problem: Respiratory Function - Impaired Goal: Adequate work of breathing Outcome: Progressing as expected [facility] 2024-06-14 06:08:50 Problem: Pain Goal: Control of pain at or below patient's documented comfort goal Outcome: Progressing as expected Problem: Discharge Planning Goal: Adequate for discharge Outcome: Progressing as expected Problem: Skin integrity Impaired (Risk or Actual) Goal: Prevention of new skin breakdown Outcome: Progressing as expected Problem: Venous Thromboembolism, (actual or risk of) Goal: Absence of venous thromboembolism (Risk) Outcome: Progressing as expected Problem: Respiratory Function - Impaired Goal: Adequate work of breathing Outcome: Progressing as expected [facility] Marycruz Rudd RN [facility] 2024-06-13 17:06:19 Problem: Pain Goal: Control of pain at or below patient's documented comfort goal Outcome: Progressing as expected Problem: Discharge Planning Goal: Adequate for discharge Outcome: Progressing as expected Problem: Skin integrity Impaired (Risk or Actual) Goal: Prevention of new skin breakdown Outcome: Progressing as expected Problem: Venous Thromboembolism, (actual or risk of) Goal: Absence of venous thromboembolism (Risk) Outcome: Progressing as expected Problem: Respiratory Function - Impaired Goal: Adequate work of breathing Outcome: Progressing as expected [facility] 2024-06-13 13:20:25 Summary: Admit Patient admitted to [facility] for diagnosis of allergic reaction Patient agrees to admission, discussed plan of care with patient and family. Patient is awake, alert, oriented, resp reg unlabored, color appropriate for race, PIV intact No adverse reaction to medications administered while in ED Belongings with patient to unit Report to Daphney Guido Shelly Soliman RN [facility] 2024-06-13 07:27:48 Patient is anxious and reports while at work she became short of breath. Reports she had a wasp sting last and she was admitted to the ICU and discharged on Monday. Reports her voice does not sound normal. Pedro Smiley RN [facility] 2024-06-13 07:20:00 [facility] Emergency Department Note Demographics Patient Name: Gerard Leung Date of : 1985 39 year old Treatment Room: NH5/NH5 Primary Care Physician: Benny Smart Pre Hospital Care Patient Escorted by: Family [5] Mode of Arrival: Personal means [1] EMS Treatment Prior to ED Arrival: MANAGER EQUITY [facility] comments[facility] ED Events Date/Time Event User Comments 06/13/24731 Medical Screening Begins BREANNA MEZA MD -- 06/13/24 07 First Provider Evaluation BREANNA MEZA MD -- Chief complaint Chief Complaint Patient presents with Anxiety Shortness of Breath ED Triage Notes Pedro Smiley RN 06/13/2024 07:29 Patient is anxious and reports while at work she became short of breath. Reports she had a wasp sting last and she was admitted to the ICU and discharged on Monday. Reports her voice does not sound normal. Chief Complaint Patient presents with Anxiety Shortness of Breath History of present illness HPI Patient returns to the emergency department complaining of difficulty breathing and feeling very anxious. Patient was recently admitted to the hospital for similar symptoms initially due to a wasp sting. Patient was started on IV steroids as well as Benadryl and Pepcid with significant resolution of her symptoms. Patient also received Valium doses for her anxiety. Upon arrival to the emergency department she has stable vital signs her O2 saturation on room air is 100% and her pulse is 96. BP 107/61 | Pulse 72 | Temp 36.3 ?C (97.3 ?F) | Resp 16 | Ht 1.6 m (5' 3") | Wt 81 kg (178 lb 8 oz) | SpO2 97% | BMI 31.62 kg/m? Past Medical and Social History Past Medical History: Diagnosis Date Abnormal uterine bleeding Anemia Breast disorder Tenderness and leaking BV (bacterial vaginosis) 04/17/2019 Heart murmur Menstrual disorder Pap smear abnormality of cervix HPV Seizures Last 2 years ago Tetanus received in last 5 years: Unknown Childhood immunizations: Up-to-date Social History Tobacco Use Smoking status: Never Smokeless tobacco: Never Tobacco comments: 1/2 ppd Substance Use Topics Alcohol use: Not Currently Drug use: Never Past Surgical History Past Surgical History: Procedure Laterality Date CYSTOSCOPY 01/03/2020 CYSTOSCOPY N/A 01/03/2020 Surgeon: Sondra Chavira MD; Location: [facility] OR [facility] LAP W/TOT HYSTERECT <250GM W/TUBE/OVARY 01/03/2020 LAPAROSCOPIC TOTAL ABDOMINAL HYSTERECTOMY N/A 01/03/2020 Surgeon: Sondra Chavira MD; Location: [facility] OR Location REMOVAL OF FALLOPIAN TUBE 01/03/2020 SALPINGECTOMY Bilateral 01/03/2020 Surgeon: Sondra Chavira MD; Location: [facility] OR Location TUBAL LIGATION Medications Medications enoxaparin (LOVENOX) injection 40 mg (has no administration in time range) acetaminophen (TYLENOL) tablet 650 mg (has no administration in time range) HYDROcodone-acetaminophen (NORCO 5) tablet 1 tablet (1 tablet Oral Given 06/13/24 1356) morpHINE (4 mg/mL) injection 4 mg (has no administration in time range) ondansetron (ZOFRAN (PF)) injection 4 mg (has no administration in time range) busPIRone (BUSPAR) tablet 5 mg (has no administration in time range) diazePAM (VALIUM) tablet 5 mg (has no administration in time range) famotidine (PEPCID AC) tablet 20 mg (has no administration in time range) predniSONE (DELTASONE) tablet 40 mg (has no administration in time range) diphenhydrAMINE (BENADRYL) tablet 50 mg (50 mg Oral Given 06/13/24 1357) famotidine (PEPCID (PF)) injection 20 mg (20 mg Slow IV Push Given 06/13/24 0751) methylprednisolone sod succ (SOLU-MEDROL) injection 125 mg (125 mg Intravenous Given 06/13/24 0752) diphenhydrAMINE (BENADRYL) injection 50 mg (50 mg Intravenous Given 06/13/24 0751) NaCl 0.9% (NS) bolus infusion 1,000 mL (1,000 mL IV Infusion New Bag 06/13/24 3358) Allergies Allergies Allergen Reactions Zoloft [Sertraline] Unknown - See comments Seizures Venom-Wasp Swelling Review of Systems Review of Systems Constitutional: Negative. HENT: Negative. Eyes: Negative. Respiratory: Positive for cough and shortness of breath. Cardiovascular: Negative. Gastrointestinal: Negative. Genitourinary: Negative. Musculoskeletal: Negative. Skin: Negative. Neurological: Negative. Psychiatric/Behavioral: Negative. Endocrine: Endocrine negative Physical Exam BP 107/61 | Pulse 72 | Temp 36.3 ?C (97.3 ?F) | Resp 16 | Ht 1.6 m (5' 3") | Wt 81 kg (178 lb 8 oz) | SpO2 97% | BMI 31.62 kg/m? Physical Exam Vitals and nursing note reviewed. Constitutional: General: She is not in acute distress. Appearance: She is well-developed and normal weight. She is not ill-appearing. HENT: Head: Normocephalic and atraumatic. Right Ear: External ear normal. Left Ear: External ear normal. Nose: Nose normal. No congestion or rhinorrhea. Mouth/Throat: Pharynx: No oropharyngeal exudate or posterior oropharyngeal erythema. Eyes: General: Right eye: No discharge. Left eye: No discharge. Conjunctiva/sclera: Conjunctivae normal. Pupils: Pupils are equal, round, and reactive to light. Cardiovascular: Rate and Rhythm: Normal rate and regular rhythm. Heart sounds: Normal heart sounds. No murmur heard. No friction rub. Pulmonary: Effort: Pulmonary effort is normal. No respiratory distress. Breath sounds: Normal breath sounds. No stridor. No wheezing or rhonchi. Abdominal: General: Bowel sounds are normal. There is no distension. Palpations: Abdomen is soft. There is no mass. Tenderness: There is no abdominal tenderness. Hernia: No hernia is present. Musculoskeletal: General: No swelling, tenderness, deformity or signs of injury. Normal range of motion. Cervical back: Normal range of motion and neck supple. No rigidity or tenderness. Skin: General: Skin is warm. Capillary Refill: Capillary refill takes less than 2 seconds. Coloration: Skin is not jaundiced or pale. Findings: No bruising or erythema. Neurological: General: No focal deficit present. Mental Status: She is alert and oriented to person, place, and time. Cranial Nerves: No cranial nerve deficit. Sensory: No sensory deficit. Motor: No weakness. Coordination: Coordination normal. Psychiatric: Mood and Affect: Mood normal. Behavior: Behavior normal. Thought Content: Thought content normal. Judgment: Judgment normal. Labs and Studies Lab Results - No data to display No orders to display Orders and Treatments Orders Placed This Encounter Procedures Basic Metabolic Panel (NA, K, CL, CO2, GLUCOSE, BUN, CREATININE, CA) CBC with Differential Orders Placed This Encounter Medications famotidine (PEPCID (PF)) injection 20 mg methylprednisolone sod succ (SOLU-MEDROL) injection 125 mg diphenhydrAMINE (BENADRYL) injection 50 mg NaCl 0.9% (NS) bolus infusion 1,000 mL enoxaparin (LOVENOX) injection 40 mg acetaminophen (TYLENOL) tablet 650 mg HYDROcodone-acetaminophen (NORCO 5) tablet 1 tablet morpHINE (4 mg/mL) injection 4 mg ondansetron (ZOFRAN (PF)) injection 4 mg busPIRone (BUSPAR) tablet 5 mg diazePAM (VALIUM) tablet 5 mg famotidine (PEPCID AC) tablet 20 mg predniSONE (DELTASONE) tablet 40 mg diphenhydrAMINE (BENADRYL) tablet 50 mg Current Discharge Medication List STOP taking these medications diphenhydrAMINE 50 mg capsule Comments: Reason for Stopping: HYDROcodone-acetaminophen 5-325 mg tablet Comments: Reason for Stopping: ondansetron 4 mg disintegrating tablet Comments: Reason for Stopping: diazePAM 2 mg tablet Comments: Reason for Stopping: OMEPRAZOLE ORAL Comments: Reason for Stopping: Procedures Procedures Evidence Care MDM & Notes Patient was evaluated for an emergency medical condition related to Anxiety (/) and Shortness of Breath (/) . Labs:were not ordered. Abnormal Labs Reviewed - No data to display Imaging:Was not ordered Diagnosis/Impression as of 06/13/24 1554 Allergic reaction, initial encounter Medical Decision Making Assessment and plan: Patient returns to the emergency department complaining of difficulty breathing and feeling very anxious. Patient was recently admitted to the hospital for similar symptoms initially due to a wasp sting. Patient was started on IV steroids as well as Benadryl and Pepcid with significant resolution of her symptoms. Patient also received Valium doses for her anxiety. Upon arrival to the emergency department she has stable vital signs her O2 saturation on room air is 100% and her pulse is 96. BP (!) 159/81 | Pulse 96 | Temp 36.8 ?C (98.3 ?F) | Resp 18 | Ht 1.6 m (5' 3") | Wt 83.9 kg (185 lb) | SpO2 100% | BMI 32.77 kg/m? Differential diagnosis: Allergic reaction, anxiety . Plan: Continue cardiac monitoring: Benadryl, Pepcid, Solu-Medrol, IV fluids. Problems Addressed: Allergic reaction, initial encounter: complicated acute illness or injury with systemic symptoms Risk Prescription drug management. Parenteral controlled substances. Pulse Oximetry: is not hypoxic. Interpreted. Reassessment:stable Limitations to patient care and compliance: none. Plan & Summary: Gerard Leung is a 39 year old female presenting for complaint(s) listed within the note. Admitted to . Case discussed and level of care determined with admitting provider. History, physical exam findings, results of visit, diagnosis, medication regimens and plan of future care have been considered. Additional MDM may be found in the ED course. Vital signs were rechecked before final disposition and determined to be stable. Disposition & Follow Up ED Disposition ED Disposition Admit - Observation Condition -- Comment Treatment Team: [facility] [[id number]] Current Discharge Medication List STOP taking these medications diphenhydrAMINE 50 mg capsule Comments: Reason for Stopping: HYDROcodone-acetaminophen 5-325 mg tablet Comments: Reason for Stopping: ondansetron 4 mg disintegrating tablet Comments: Reason for Stopping: diazePAM 2 mg tablet Comments: Reason for Stopping: OMEPRAZOLE ORAL Comments: Reason for Stopping: Diagnoses ICD-10-CM 1. Allergic reaction, initial encounter T78.40XA Disposition and Condition ED Disposition ED Disposition Admit - Observation Condition -- Comment Treatment Team: [facility] [[id number]] Current Discharge Medication List STOP taking these medications diphenhydrAMINE 50 mg capsule Comments: Reason for Stopping: HYDROcodone-acetaminophen 5-325 mg tablet Comments: Reason for Stopping: ondansetron 4 mg disintegrating tablet Comments: Reason for Stopping: diazePAM 2 mg tablet Comments: Reason for Stopping: OMEPRAZOLE ORAL Comments: Reason for Stopping: [employer] Dictation Software is used frequently and may produce errors. Promptly contact for obvious discrepancies. Breanna Meza MD, FACEP, FAAEM [employer] Specialist of Emergency and Internal Medicine [facility] #[id number] Breanna Meza MD 06/13/24 1554 [employer] EMERGENCY PHYSICIAN STAFF [facility] 2024-06-11 17:11:33 TRANSITIONAL CARE MANAGEMENT ASSESSMENT 06/11/2024 Gerard Leung [id number] Gerard Leung is a 39 year old /White female was admitted on 06/07/24 to [facility] ICU. She was discharged on 06/08/24 with discharge disposition of HR- Routine Discharge. Admitting Physician: Michelle Toney Discharge Diagnosis: Wasp sting, accidental or unintentional, initial encounter No linked episodes TCM [id number]-[id number]-face outreach documentation: Discharge Assessment Chart Assessed: 06/11/24 TCM Outreach Completed: 06/11/24 Do you have a few minutes to speak with me about how you are doing at home?: Yes (Patient stated she is feeling weird.) Discharge Instructions Do you understand your at-home instructions?: Yes Medications Have you filled your prescriptions and do you have them in your home? : Yes Do you know how to take your medications?: Yes Supplies Did you receive applicable home medical supplies/equipment?: N/A Follow Up Appointment Has a follow up appointment been scheduled?: No May I assist with scheduling this appointment?: Patient has outside PCP Do you have any questions about your follow up appointments?: No Are you able to get to your appointment? Who will be taking you?: Yes Home Health Assistance Has the home health nurse contacted you since you've been home?: N/A Survey - Recognition Do you have any other questions or concerns at this time?: No Future Appointments: Yoli Rhodes RN [facility] 2024-06-10 13:47:46 Care Transition CM made f/u call to pt post-discharge. No response and call went to voicemail. CM left a discreet message with purpose of call and CM's call back information. Yoli Rhodes RN, BSN Neon Sign Mechanic-Transitions of Care [phone] [facility] 2024-06-08 16:30:46 Problem: Discharge Planning Goal: Adequate for discharge Outcome: Adequate for discharge Problem: Discharge Planning Goal: Effective communication Outcome: Adequate for discharge Problem: Fluid Volume - Imbalanced Goal: Absence of signs and symptoms of imbalanced fluid volume Outcome: Adequate for discharge Problem: Glucose Control - Initiated in Adult CC Goal: Glucose level within specified parameters Outcome: Resolved Problem: Infection, Risk of or Actual Goal: Absence of infection Outcome: Adequate for discharge Problem: Pain Goal: Control of pain at or below patient's documented comfort goal Outcome: Adequate for discharge Problem: Pain Goal: Reduction in pain sensation Outcome: Adequate for discharge Problem: Respiratory Function - Impaired Goal: Able to cough effectively Outcome: Adequate for discharge Problem: Respiratory Function - Impaired Goal: Adequate oxygenation Outcome: Adequate for discharge Problem: Respiratory Function - Impaired Goal: Adequate work of breathing Outcome: Adequate for discharge Problem: Respiratory Function - Impaired Goal: Patent airway Outcome: Adequate for discharge Problem: Skin integrity Impaired (Risk or Actual) Goal: Wound healing Outcome: Adequate for discharge Problem: Skin integrity Impaired (Risk or Actual) Goal: Prevention of new skin breakdown Outcome: Adequate for discharge Problem: Tissue Perfusion - Altered, Risk of Goal: Hemodynamically stable Outcome: Adequate for discharge Dimple Lopes RN [facility] 2024-06-08 09:08:23 Problem: Discharge Planning Goal: Adequate for discharge Outcome: Progressing as expected Goal: Effective communication Outcome: Progressing as expected Problem: Fluid Volume - Imbalanced Goal: Absence of signs and symptoms of imbalanced fluid volume Outcome: Progressing as expected Problem: Glucose Control - Initiated in Adult CC Goal: Glucose level within specified parameters Outcome: Resolved Problem: Infection, Risk of or Actual Goal: Absence of infection Outcome: Progressing as expected Problem: Pain Goal: Control of pain at or below patient's documented comfort goal Outcome: Progressing as expected Goal: Reduction in pain sensation Outcome: Progressing as expected Problem: Respiratory Function - Impaired Goal: Able to cough effectively Outcome: Progressing as expected Goal: Adequate oxygenation Outcome: Progressing as expected Goal: Adequate work of breathing Outcome: Progressing as expected Goal: Patent airway Outcome: Progressing as expected Problem: Skin integrity Impaired (Risk or Actual) Goal: Wound healing Outcome: Progressing as expected Goal: Prevention of new skin breakdown Outcome: Progressing as expected Problem: Tissue Perfusion - Altered, Risk of Goal: Hemodynamically stable Outcome: Progressing as expected [facility] 2024-06-07 21:51:27 Problem: Discharge Planning Goal: Adequate for discharge Outcome: Progressing as expected Goal: Effective communication Outcome: Progressing as expected Problem: Fluid Volume - Imbalanced Goal: Absence of signs and symptoms of imbalanced fluid volume Outcome: Progressing as expected Problem: Glucose Control - Initiated in Adult CC Goal: Glucose level within specified parameters Outcome: Progressing as expected Problem: Infection, Risk of or Actual Goal: Absence of infection Outcome: Progressing as expected Problem: Pain Goal: Control of pain at or below patient's documented comfort goal Outcome: Progressing as expected Goal: Reduction in pain sensation Outcome: Progressing as expected Problem: Respiratory Function - Impaired Goal: Able to cough effectively Outcome: Progressing as expected Goal: Adequate oxygenation Outcome: Progressing as expected Goal: Adequate work of breathing Outcome: Progressing as expected Goal: Patent airway Outcome: Progressing as expected Problem: Skin integrity Impaired (Risk or Actual) Goal: Wound healing Outcome: Progressing as expected Goal: Prevention of new skin breakdown Outcome: Progressing as expected Problem: Tissue Perfusion - Altered, Risk of Goal: Hemodynamically stable Outcome: Progressing as expected [facility] 2024-06-07 20:36:25 Patient admitted to 2109 for diagnosis of Wasp Sting, accidental or unintentional. Patient agrees to admission, discussed plan of care with patient and family. Patient is awake, A&Ox4, RR even and unlabored on RA. Color appropriate for race. PIV intact x2. No adverse reaction to medications administered while in ED. Belongings with patient to unit. Beth Platt RN [facility] 2024-06-07 19:50:01 Nurse Report Report given to DAPHNEY Mcmanus. Chief complaint, assessment findings, infusion verify and orders reviewed. [facility] 2024-06-07 16:40:54 Pt came in via private auto, due to wasp sting yesterday 0830pm, redness on the upper arm to the elbow, feels like her throat is closing, and an elephant sitting on her chest, she denies any pmhx, itchy all over also, Dr. Hill assessing in the room. Cecily Schmidt RN [facility] 2024-06-07 16:36:00 Images from the original note were not included. EMERGENCY DEPARTMENT ENCOUNTER [facility] Patient Name: Gerard Leung Date of : 1985 39 year old Exam Room:TX7/TX7 Primary Care Physician: Benny Smart [facility] Patient Escorted by: Family [5] Mode of Arrival: Personal means [1] EMS Treatment Prior to ED Arrival: ED Events Date/Time Event User Comments 06/07/24 1641 Medical Screening Begins KHLOE RIBEIRO -- 06/07/24 1641 First Provider Evaluation SCOTT VENANCIO KHLOE -- Chief Complaint Chief Complaint Patient presents with Throat Problem Feel like its closing Chest Pain Vomiting Allergic reaction Wasp sting ED Triage Notes Cecily Schmidt RN 06/07/2024 16:47 Pt came in via private auto, due to wasp sting yesterday 0830pm, redness on the upper arm to the elbow, feels like her throat is closing, and an elephant sitting on her chest, she denies any pmhx, itchy all over also, Dr. Hill assessing in the room. Original note by Cecily Schmidt RN at 06/07/2024 16:42 HPI History provided by: Patient Allergic reaction Presenting symptoms: difficulty swallowing Severity: Moderate Duration: 30 minutes Context: insect bite/sting Context comment: Wasp sting Relieved by: Nothing Worsened by: Nothing Past Medical History / Immunizations Past Medical History: Diagnosis Date Abnormal uterine bleeding Anemia Breast disorder Tenderness and leaking BV (bacterial vaginosis) 04/17/2019 Heart murmur Menstrual disorder Pap smear abnormality of cervix HPV Seizures Last 2 years ago Tetanus received in last 5 years: Yes Past Surgical History Past Surgical History: Procedure Laterality Date CYSTOSCOPY 01/03/2020 CYSTOSCOPY N/A 01/03/2020 Surgeon: Sondra Chavira MD; Location: [facility] OR [facility] LAP W/TOT HYSTERECT <250GM W/TUBE/OVARY 01/03/2020 LAPAROSCOPIC TOTAL ABDOMINAL HYSTERECTOMY N/A 01/03/2020 Surgeon: Sondra Chavira MD; Location: [facility] OR [facility] REMOVAL OF FALLOPIAN TUBE 01/03/2020 SALPINGECTOMY Bilateral 01/03/2020 Surgeon: Sondra Chavira MD; Location: [facility] OR [facility] TUBAL LIGATION Allergies Allergies Allergen Reactions Zoloft [Sertraline] Unknown - See comments Seizures Social History Tobacco Use Every Day; Types: Cigarettes Smokeless Tobacco: Never used smokeless tobacco. Comments: 1/2 ppd Alcohol Use Not Currently. Drug Use Never. Sexual Activity Sexually active; Partners: Male; Control/Protection: Surgical. Review of Systems Review of Systems Constitutional: Negative. Negative for chills, fatigue, fever and unexpected weight change. HENT: Positive for trouble swallowing. Eyes: Negative. Negative for discharge and itching. Respiratory: Negative for cough, chest tightness and shortness of breath. Cardiovascular: Negative. Negative for chest pain and palpitations. Gastrointestinal: Negative. Negative for abdominal distention, abdominal pain, nausea and vomiting. Genitourinary: Negative. Negative for dysuria, urgency, frequency and flank pain. Musculoskeletal: Negative. Skin: Negative. Negative for color change, pallor and wound. Neurological: Negative. Negative for dizziness, syncope, light-headedness and headaches. Psychiatric/Behavioral: Negative. Negative for agitation and behavioral problems. Endocrine: Endocrine negative Physical Exam ED Triage Vitals Weight 06/07/24 1642 81.6 kg (180 lb) Actual or estimated 06/07/242030 Estimated by patient/family report Height 06/07/24 1642 1.6 m (5' 3") BP 06/07/24 1642 (!) 129/95 Pulse 06/07/24 1642 89 Resp 06/07/24 1642 16 Temp 06/07/24 1642 36.3 ?C (97.4 ?F) Temp source 06/07/24 1642 Oral SpO2 06/07/24 1642 100 % Measured on 06/07/24 1642 On oxygen Physical Exam Vitals reviewed. Constitutional: Appearance: She is well-developed. HENT: Head: Normocephalic and atraumatic. Nose: Nose normal. Eyes: Conjunctiva/sclera: Conjunctivae normal. Neck: Trachea: No tracheal deviation. Cardiovascular: Rate and Rhythm: Normal rate. Heart sounds: Normal heart sounds. No murmur heard. No friction rub. Pulmonary: Effort: Pulmonary effort is normal. No respiratory distress. Breath sounds: Normal breath sounds. Abdominal: General: Bowel sounds are normal. There is no distension. Palpations: Abdomen is soft. Tenderness: There is no abdominal tenderness. There is no guarding or rebound. Musculoskeletal: General: Swelling and tenderness present. Arms: Cervical back: Normal range of motion and neck supple. Skin: General: Skin is warm and dry. Neurological: Mental Status: She is alert and oriented to person, place, and time. Psychiatric: Behavior: Behavior normal. Thought Content: Thought content normal. Judgment: Judgment normal. Labs Lab Results CBC WITH DIFF - Abnormal Result Value Ref Range WBC 10.60 4.30 - 11.10 10*3/?L RBC 4.32 3.93 - 5.25 10*6/?L HGB 13.0 11.6 - 15.0 g/dL HCT 39.6 35.7 - 45.2 % MCV 91.7 80.6 - 95.5 fL MCH 30.1 25.9 - 32.8 pg MCHC 32.8 31.6 - 35.1 g/dL RDW-SD 40.7 39.0 - 49.9 fL RDW-CV 12.1 12.0 - 15.5 % PLT 357 166 - 358 10*3/?L MPV 9.8 9.5 - 12.9 fL NRBC/100 WBC 0.0 0.0 - 10.0 /100 WBCs NRBC x10 3 <0.01 10*3/?L GRAN MAT (NEUT) % 75.0 % IMM GRAN % 0.40 % LYMPH % 17.0 % MONO % 5.3 % EOS % 2.1 % BASO % 0.2 % GRAN MAT x10 3 (ANC) 7.96 (*) 1.88 - 7.09 10*3/uL IMM GRAN x10 3 0.04 0.00 - 0.06 10*3/uL LYMPH x10 3 1.80 1.32 - 3.29 10*3/uL MONO x10 3 0.56 0.33 - 0.92 10*3/uL EOS x10 3 0.22 0.03 - 0.39 10*3/uL BASO x10 3 <0.03 0.01 - 0.07 10*3/uL COMP. METABOLIC PANEL (09456) - Abnormal NA 137 135 - 145 mmol/L K 4.3 3.5 - 5.0 mmol/L CL 104 98 - 108 mmol/L CO2 TOTAL 25 23 - 31 mmol/L AGAP 8 2 - 16 BUN 15 7 - 23 mg/dL GLUCOSE 121 (*) 70 - 110 mg/dL CREATININE 0.75 0.50 - 1.04 mg/dL TOTAL BILI 0.7 0.1 - 1.1 mg/dL CALCIUM 8.6 8.6 - 10.6 mg/dL T PROTEIN 7.4 6.3 - 8.2 g/dL ALBUMIN 4.1 3.5 - 5.0 g/dL ALK PHOS 92 34 - 122 U/L ALTv 18 5 - 35 U/L AST(SGOT) 21 13 - 40 U/L eGFR 104.0 mL/min/1.73m2 MRSA / MSSA SCREEN BY PCR, [facility] No orders to display Orders and Treatments Orders Placed This Encounter Procedures Critical Care Cbc with Diff Comp. Metabolic Panel (17819) MRSA / MSSA Screen by PCR, Nares Cbc with Diff Basic Metabolic Panel (NA, K, CL, CO2, GLUCOSE, BUN, CREATININE, CA) Orders Placed This Encounter Medications dexamethasone sod phos PF injection 10 mg diphenhydrAMINE (BENADRYL) injection 25 mg famotidine (PEPCID (PF)) injection 20 mg EPINEPHrine 1:1,000 (1 mg/mL) (ADRENALIN) injection 0.3 mg ondansetron (ZOFRAN (PF)) injection 4 mg morpHINE (4 mg/mL) injection 4 mg diphenhydrAMINE (BENADRYL) injection 25 mg enoxaparin (LOVENOX) injection 40 mg DISCONTD: famotidine (PEPCID (PF)) injection 20 mg diphenhydrAMINE (BENADRYL) injection 25 mg DISCONTD: albuterol (PROVENTIL) 2.5 mg /3 mL (0.083 %) nebulizer solution 2.5 mg DISCONTD: methylprednisolone sod succ (SOLU-MEDROL) injection 80 mg methylprednisolone sod succ (SOLU-MEDROL) injection 80 mg morpHINE (4 mg/mL) injection 4 mg famotidine (PEPCID (PF)) injection 20 mg hydrocortisone 1 % cream mupirocin (BACTROBAN OINT) 2 % oinintment ondansetron (ZOFRAN (PF)) injection 4 mg albuterol (PROVENTIL) 2.5 mg /3 mL (0.083 %) nebulizer solution 2.5 mg Procedures Procedures MDM Patient was evaluated for an emergency medical condition related to Throat Problem (Feel like its closing), Chest Pain, Vomiting, and Allergic reaction (Wasp sting) Diagnoses considered but not limited to: Anaphylaxis Abnormal Labs Reviewed CBC WITH DIFF - Abnormal; Notable for the following components: Result Value GRAN MAT x10 3 (ANC) 7.96 (*) All other components within normal limits COMP. METABOLIC PANEL (53891) - Abnormal; Notable for the following components: GLUCOSE 121 (*) All other components within normal limits CBC WITH DIFF - Abnormal; Notable for the following components: RDW-SD 38.8 (*) GRAN MAT x10 3 (ANC) 8.89 (*) LYMPH x10 3 0.74 (*) MONO x10 3 0.04 (*) EOS x10 3 <0.03 (*) All other components within normal limits BASIC METABOLIC PANEL (NA, K, CL, CO2, GLUCOSE, BUN, CREATININE, CA) - Abnormal; Notable for the following components: GLUCOSE 147 (*) All other components within normal limits Diagnosis/Impression as of 06/08/24 0750 Wasp sting, accidental or unintentional, initial encounter AdmissionCare Guideline: Venom Exposure from Bite or Sting - OBS, Observation Based on the indications selected for the patient, the bed status of Observation was determined to be MET The following indications were selected as present at the time of evaluation of the patient: - Observation Care Admission Criteria - Observation care is indicated for 1 or more of the following: - Pain not adequately managed by emergency department care AdmissionCare documentation entered by: Aris Hill [facility] [employer], 28th edition, Copyright ? 2023 [facility] [employer] All Rights Reserved. [id number]:23:18-05:00 Medical Decision Making Problems Addressed: Wasp sting, accidental or unintentional, initial encounter: acute illness or injury Amount and/or Complexity of Data Reviewed Labs: ordered. Decision-making details documented in ED Course. Risk Prescription drug management. Parenteral controlled substances. Decision regarding hospitalization. Reassessment:guarded continued swelling of left arm Communication with nurse consultant: None. Limitations to patient care and compliance: none. Plan & Summary: The patient is a 39-year-old female who was stung by a wasp shortly prior to arrival. She was stung in her left arm. She has significant swelling and redness. It appears that the stinger is out. We also washed her arm as well. She complained of difficulty swallowing she was given epi, Decadron, Benadryl, and also Pepcid. Patient was monitored in the ER however, she continued to have swelling. The patient was admitted to the inpatient service for further inpatient management. Gerard Leung is a 39 year old female presenting for complaint(s) listed within the note. . Admitted to . Case discussed and level of care determined with admitting provider. History, physical exam findings, results of visit, diagnosis, medication regimens and plan of future care have been considered. Additional MDM may be found in the ED course. Vital signs were rechecked before final disposition and determined to be stable. Disposition & Follow Up ED Disposition ED Disposition Admit - ICU Condition -- Comment -- Current Discharge Medication List STOP taking these [...] Stopping: OMEPRAZOLE ORAL Comments: Reason for Stopping: Aris Hill Jr., MD Clinical Parts Specialist [facility] Emergency Department [employer] is used frequently and may produce errors. Promptly contact for obvious discrepancies. Aris Hill MD 06/08/24 0752 [facility] 2024-06-07 16:36:00 Associated Order(s): Critical Care Critical Care Performed by: Aris Hill MD Authorized by: Aris Hill MD Critical care provider statement: Critical care time (minutes): 45 Critical care time was exclusive of: Separately billable procedures and treating other patients and teaching time Critical care was necessary to treat or prevent imminent or life-threatening deterioration of the following conditions: anaphylaxis. Critical care was time spent personally by me on the following activities: Development of treatment plan with patient or surrogate, evaluation of patient's response to treatment, examination of patient, obtaining history from patient or surrogate, ordering and performing treatments and interventions, ordering and review of laboratory studies, ordering and review of radiographic studies, pulse oximetry, re-evaluation of patient's condition and review of old charts Care discussed with: admitting provider Comments: Due to a high probability of clinically [...] treatment; frequent reassessment; and, discussions with other providers. This critical care time was performed to assess and manage the high probability of imminent, life-threatening deterioration that could result in multi-organ failure. It was exclusive of separately billable procedures and treating other patients. [facility] 2024-06-07 16:36:00 AdmissionCare Guideline: Venom Exposure from Bite or Sting - OBS, Observation Based on the indications selected for the patient, the bed status of Observation was determined to be MET The following indications were selected as present at the time of evaluation of the patient: - Observation Care Admission Criteria - Observation care is indicated for 1 or more of the following: - Pain not adequately managed by emergency department care AdmissionCare documentation entered by: Aris Hill [facility], 28th edition, Copyright ? 2023 [facility] [employer] [facility] All Rights Reserved. [id number]:23:18-05:00 [facility]
--- NOTE | 2024-12-31 23:55 | EDPHYS ---
Physician Documentation [facility] Name: Kelsi Leung Age: 39 yrs Sex: Female : 1985 Arrival Date: 12/31/2024 Time: 23:33 Bed 12 Private MD: [facility] ED Physician Naeem German HPI: 12/31 23:49 This 39 yrs old Female presents to ER via Unassigned with complaints of Cough, kb Congestion, Ear Pain. 23:49 Pt is a 39 year old female who presents for congestion, ear pain, cough, subjective kb fever that started months ago and has gotten worse. . 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 - Infectious Disease History:: Denies. - Social history:: Smoking status: Patient denies any tobacco usage or history of. ROS: 23:49 Constitutional: As per HPI kb Exam: 23:49 Constitutional: This is a well developed, well nourished patient who is awake, alert, kb and in no acute distress. Head/Face: Normocephalic, atraumatic. ENT: Moist Mucous membranes Cardiovascular: Regular rate Respiratory: Respirations even and unlabored. No increased work of breathing. Talking in full sentences Abdomen/GI: Soft, non-tender. No distention Skin: Warm, dry with normal turgor. Normal color. MS/ Extremity: Pulses equal, no cyanosis. Neurovascular intact. Full, normal range of motion. Neuro: Awake and alert, GCS 15, oriented to person, place, time, and situation. Vital Signs: 23:57 BP 123 / 88; Pulse 67; Resp 18; Temp 97.4; Pulse Ox 100% ; Weight 81.65 kg; Height 5 me1 ft. 3 in. ; Pain 7/10; 23:57 Body Mass Index 31.89 (81.65 kg, 160.02 cm) me1 23:57 Pain Scale: Adult me1 MDM: 23:47 Medical Screening Exam initiated kb 23:52 Differential Diagnosis: Bronchitis Influenza Upper Respiratory Infection Sinusitis kb Otitis Media. Data reviewed: vital signs, nurses notes. Test considered but Not performed: Labs: covid, flu, strep tests considered, but result would not change course of treatment. Historians other than the Patient: Spouse/Significant Other: spouse. Counseling: I had a detailed discussion with the patient and/or guardian regarding the historical points, exam findings, and any diagnostic results supporting the discharge/admit diagnosis, the need for outpatient follow up, a family practitioner, to return to the emergency department if symptoms worsen or persist or if there are any questions or concerns that arise at home. Administered Medications: 01/01 00:26 Drug: Dexamethasone IM 10 mg IM once Route: IM; Site: left gluteus; br2 00:30 Follow up: Response: Medication administered at discharge. br2 00:26 Drug: Amoxicillin-Clavulanate PO 875 mg PO once Route: PO; br2 00:30 Follow up: Response: Medication administered at discharge. br2 Disposition: 23:40 Co-signature as Attending Physician, Naeem German MD I agree with the assessment sp4 and plan of care. I reviewed the patient's care provided by the Advanced Practice Provider and agree with the diagnosis and treatment plan. Disposition Summary: 12/31/24 23:54 Discharge Ordered Notes: Location: Home kb Condition: Stable kb Diagnosis - Acute sinusitis, unspecified kb Followup: kb - With: Private Physician - When: 2 - 3 days - Reason: Recheck today's complaints, Continuance of care, Re-evaluation by your physician Followup: kb - With: Emergency Department - When: As needed - Reason: Worsening of condition Discharge Instructions: - Discharge Summary Sheet kb - Sinusitis, Adult, [id number] kb Forms: - Medication Reconciliation Form kb - Antibiotic Education kb - Prescription Opioid Use kb - Patient Portal Instructions kb - Leadership Thank You Letter Prescriptions: - Augmentin 875-125 mg Oral Tablet - take 1 tablet ORAL route every 12 hours for 10 days; 20 tablet; Refills: 0, kb Product Selection Permitted Signatures: Barbara Smith FNP-C FNP-Ckb Potepalov, Sergey, MD MD sp4 Sherry Simpson RN RN me1 Lorin Rodriguez RN RN br2
[2025-01-01] MEDS ORDERED: AMOX/K CLAV 875 MG TAB ONE (00:13)
[2025-01-01] MEDS ORDERED: dexAMETHasone 10 MG/ML VIAL ONE (00:14)
--- NOTE | 2025-01-01 00:33 | ER ---
Nurse's Notes [facility] Name: Kelsi Leung Age: 39 yrs Sex: Female : 1985 Arrival Date: 12/31/2024 Time: 23:33 Bed 12 Private MD: Benny Smart Diagnosis: Acute sinusitis, unspecified Presentation: 12/31 23:57 Chief complaint: Patient states: bilateral ear pain , cough and congestion that has me1 been going on for months but is getting worse. Coronavirus screen: At this time, the client does not indicate any symptoms associated with coronavirus-19. Ebola Screen: No symptoms or risks identified at this time. Initial Sepsis Screen: Does the patient meet any 2 criteria? No. Patient's initial sepsis screen is negative. Does the patient have a suspected source of infection? No. Patient's initial sepsis screen is negative. Risk Assessment: Do you want to hurt yourself or someone else? Patient reports no desire to harm self or others. Onset of symptoms is unknown. 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 - Infectious Disease History:: Denies. - Social history:: Smoking status: Patient denies any tobacco usage or history of. Screenin/12 00:10 [facility] ED Fall Risk Assessment (Adult) History of falling in the last 3 months, br2 including since admission No falls in past 3 months (0 pts) Confusion or Disorientation No (0 pts) Intoxicated or Sedated No (0 pts) Impaired Gait No (0 pts) Mobility Assist Device Used No (0 pt) Altered Elimination No (0 pt) Score/Fall Risk Level 0 - 2 = Low Risk Oriented to surroundings. Abuse screen: Denies threats or abuse. Denies injuries from another. Nutritional screening: No deficits noted. Tuberculosis screening: No symptoms or risk factors identified. Assessment: 00:10 Reassessment: Patient and/or family updated on plan of care and expected duration. Pain br2 level reassessed. Patient is alert, oriented x 3, equal unlabored respirations, skin warm/dry/pink. General: Appears in no apparent distress. comfortable, Behavior is calm, cooperative. Cardiovascular: Capillary refill < 3 seconds. Respiratory: Airway is patent Respiratory effort is even, unlabored, Respiratory pattern is regular, symmetrical, Breath sounds are clear bilaterally. Respiratory: Reports cough that is dry. Vital Signs: 12/31 23:57 BP 123 / 88; Pulse 67; Resp 18; Temp 97.4; Pulse Ox 100% ; Weight 81.65 kg; Height 5 me1 ft. 3 in. ; Pain 7/10; 23:57 Body Mass Index 31.89 (81.65 kg, 160.02 cm) me1 23:57 Pain Scale: Adult sc1 ED Course: 23:45 Patient arrived in ED. gm2 23:46 Benny Smart DO is Private Physician. gm2 23:46 Barbara Smith FNP-C is [facility]. kb 23:46 Neaem German MD is Attending Physician. kb 23:58 Triage completed. me1 23:58 Arm band placed on Patient placed in an exam room. me1 03 00:07 Lorin Rodriguez, GANESH is Primary Nurse. br2 00:10 Patient has correct armband on for positive identification. Provided Education on: PLAN br2 OF CARE. 00:32 No provider procedures requiring assistance completed. Patient did not have IV access br2 during this emergency room visit. Administered Medications: 00:26 Drug: Dexamethasone IM 10 mg IM once Route: IM; Site: left gluteus; br2 00:30 Follow up: Response: Medication administered at discharge. br2 00:26 Drug: Amoxicillin-Clavulanate PO 875 mg PO once Route: PO; br2 00:30 Follow up: Response: Medication administered at discharge. br2 Outcome: 12/31 23:54 Discharge ordered by . harley 03 00:32 Discharged to home ambulatory, br2 Condition: good Discharge instructions given to patient, Instructed on discharge instructions, follow up and referral plans. Demonstrated understanding of instructions, follow-up care, Prescriptions given X 1, 00:33 Patient left the ED. br2 Signatures: Barbara Smith FNP-C FNP-Ckb Eddleman, Michelle, RN RN sc1 Cate Burciaga gm2 Lorin Rodriguez, RN RN br2
[2025-01-01 01:08] VITALS: BP 123/88; TEMP 97.4; O2SAT 100
== END 2025-01-01 00:33 | disposition home or self-care (01) ==
LOC: ER 23:33
DX: J01.90 Acute sinusitis, unspecified (principal)
CPT/HCPCS: 96372; 99284; J1100

== ENCOUNTER 2025-01-07 00:08 | Emergency (ER) | payer OTHER ==
--- OUTSIDE RECORDS SUMMARY | 2025-01-07 00:16 | XMS REPORT | Continuity of Care Document ---
Author Name Unknown Address [address] [place] [address] [facility] [place] Address 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 Name Role Phone Benny Smart Primary Care Physician [phone] Benny Smart Attending Clinician Unavailable SONDRA CHAVIRA Attending Clinician UnavailSONDRA Ervin Attending Clinician Unavaila doreen Doctor Unassigned, [place] Attending Clinician U lasha Rhodes RN, Yoli Enriquez Attending Clinician [phone] MICHELLE TONEY Attending Clinician Unavailable Derrick FRANKLIN, Breanna Narayanan Attending Clinician [phone] Michelle Toney MD Attending Clinician [phone] Aris Hill MD Attending Clinician [phone] Armond Mooer DO Attending Clinician [phone] Trev PAC, K Sydni Attending Clinician [phone] Doctor Unassigned, [place] Attending Clinician U naintatumSandee Alexander DO Attending Clinician [phone] SANDEE GUILLEN Attending Clinician Unavailab Tim Sinha DO Attending Clinician [phone] Sergio FRANKLIN, Aris Attending Clinician [phone] Mary ANDERSEN, Li Attending Clinician Unavailable Isela CRAFT, Clarence Gurrola Attending Clinician [phone] Carmine FRANKLIN, Alyssa Muir Attending Clinician [phone] Sondra Chavira MD Attending Clinician [phone] Brent PASTRANA, Carmen Attending Clinician [phone] Pob, [facility] Main Attending Clinician Unavailernestina e Nurse, [facility] Attending Clinician Un available SONDRA CHAVIRA Admitting Clinician Unavaila MICHELLE Galloway Admitting Clinician Unavailable Feng FRANKLIN, Michelle Admitting Clinician [phone] SANDEE GUILLEN Admitting Clinician Unavailab Sondra Witt MD Admitting Clinician +[phone] Payers Payer Name Policy Type Policy Number Effective Date Expirati on Date Source [facility] MEDICAID [id number] 2016 00:00:00 90 Degree Benefits 53 [id number] 2023 00:00:00 [facility] [id number] [facility] [id number] [facility] [id number] [facility] [id number] [facility] [id number] [facility] Problems Condition Name Condition Details Condition Category Status Onset Date Resolution Date Last Treatment Date Treating Clinician Comments Source Allergic reaction, initial encounter Allergic reaction, initial encounter Disease Active 06-13 00:00: 00 [facility] Wasp sting, accidental or unintentio nal, initial encounter Wasp sting, accidental or unintentio nal, initial encounter Disease Active 8-16 00:00: 00 [facility] Status post laparoscop ic hysterecto my Status post laparoscop ic hysterecto my Disease Active 3-27 00:00: 00 [facility] BV (bacterial vaginosis) BV (bacterial vaginosis) Disease Active 04-17 00:00: 00 [facility] Cervical high risk human papillomav irus (HPV) DNA test positive Cervical high risk human papillomav irus (HPV) DNA test positive Disease Active 04-17 00:00: 00 Overview: Formattin g of this note might be different from the original. 04/10/19 - pap smear was normal but HPV 6 was positive. Started on DepoProve ra March 2019. [facility] Abdominal pain, generalize d Abdominal pain, generalize d Disease Active 04-10 00:00: 00 Overview: Formattin g of this note might be different from the original. Patient followed by GI in [facility] Menorrhagi a with regular cycle Menorrhagi a with regular cycle Disease Active 04-10 00:00: 00 [facility] Dysmenorrh ea Dysmenorrh ea Disease Active 04-10 00:00: 00 [facility] Menorrhagi a with regular cycle Menorrhagi [...] lorraine. Pathology benign with no pathology seen. [facility] [id number] Constipati on, unspecifie d constipati on type Problem [facility] [id number] GERD without esophagiti s Problem [facility] [id number] Hyperlipid emia, unspecifie d hyperlipid emia type Problem [facility] [id number] Loss of taste Problem [facility] [id number] Tobacco use disorder Problem [facility] [id number] Generalize d anxiety disorder Problem [facility] [id number] Primary insomnia Problem [facility] [id number] Migraine without aura and without status migrainosu s, not intractabl e Problem [facility] Spondylosi s Spondylosi s Problem [facility] [id number] Crohn's disease with complicati on, unspecifie d gastrointe stinal tract location Problem [facility] [id number] Autoimmune disease Problem [facility] [id number] Body mass index [BMI] 32.0-32.9, adult Problem [facility] [id number] Other obesity due to excess calories Problem [facility] Allergies, Adverse Reactions, Alerts Allergy Name Allergy Type Status Severity Reaction(s) Onset Date Inactive Date Treating Clinician Comments Source [facility]OM-[place] SP DRUG INGREDI Active Swelling 06-13 00:00: 00 [facility] Venom-[place] sp Propensi ty to adverse reaction s Active Swelling 06-13 00:00: 00 [facility] SERTRALI NE DRUG INGREDI Active High Unknown-Cmnt 0 3-13 00:00: 00 [facility] sertrali ne sertrali ne Active Unknown [facility] NO KNOWN ALLERGIE S Drug Class Active [facility] Social History Social Habit Start Date Stop Date Quantity Comments Source Exposure to SARS-CoV-2 (event) Not sure [facility] Sexual orientation [facility] Sex Assigned At [facility] History of Tobacco Use [facility] Alcoholic beverage intake 2024-06-07 00:00:00 2024-06-07 00:00:00 Ex-drinker (finding) [facility] Alcohol intake 2021-08-04 00:00:00 2021-08-04 00:00:00 Ex-drinker (finding) [facility] History of Social function 2020-01-03 00:00:00 2020-01-03 00:00:00 [facility] Tobacco Comment 2019-12-31 00:00:00 2019-12-31 00:00:00 1/2 ppd [facility] Tobacco use and exposure 2019-12-31 00:00:00 2019-12-31 00:00:00 Smokeless tobacco non-user [facility] Smoking Status Start Date Stop Date Source Former Smoker 2024-12-26 00:00:00 2024-12-26 00:00:00 [facility] Never smoked tobacco [facility] Smokes tobacco daily 2019-12-31 00:00:00 [facility] Medications Ordered Medication Name Filled Medication Name Start Date Stop Date Current Medication? Ordering Clinician Indication Dosage Frequency Signature (SIG) Comments Components Source EPINEPHrine 0.3 MG/0.3ML EPINEPHrine 0.3 MG/0.3ML 06-18 00:00: 00 No EPINEPHrin e 0.3 MG/0.3ML predniSONE (DELTASONE) tablet 40 mg 06-15 01:00: 00 06-19 13:59 :00 No 40mg [facility] pantoprazol e 40 mg EC tablet 06-15 00:00: 00 06-26 04:59 :00 No [id number] 40mg Take 1 tablet by mouth every morning for 10 days. [facility] butalbital- acetaminoph en-caff (ESGIC) 50-325-40 mg tablet 1 tablet 06-14 19:45: 00 06-14 18:53 :00 No 1{tbl} 1 tablet, Oral, ONCE, 1 dose, On 06/14/24 at 1445, Routine [facility] pantoprazol e (PROTONIX) EC tablet 40 mg 06-14 04:15: 00 Yes 40mg 40 mg, Oral, QAM-0600, First dose on Catherine 06/13/24 at 2315, Until Discontinu ed, Routine [facility] hydrOXYzine (ATARAX) tablet 10 mg 06-14 04:10: 52 Yes 10mg 10 mg, Oral, Q6HPRN, Starting on Mon06/13/24 at 2310, Until Discontinu ed, Routine, Anxiety [facility] busPIRone (BUSPAR) tablet 5 mg 06-14 01:00: 00 Yes 5mg 5 mg, Oral, BID, First dose on Mon06/13/24 at 2000, Until Discontinu ed, [facility] famot[facility] (PEPCID AC) tablet 20 mg 06-14 01:00: 00 06-14 04:07 :36 No 20mg 20 mg, Oral, BID, First dose on Mon06/13/24 at 1999, Until Discontinu ed, Routine [facility] diphenhydrA MINE 50 mg capsule 06-14 00:00: 00 07-05 04:59 :00 No [id number] 50mg Take 1 capsule by mouth every 4 (four) hours as needed for Allergies or Itching for up to 20 days. [facility] acetaminoph en-caff-but albital (ESGIC) per capsule 06-14 00:00: 00 06-20 04:59 :00 No [id number] 1{capsu le} Take 1 capsule by mouth every 6 (six) hours as needed for Pain for up to 5 days. [facility] predniSONE 20 mg tablet 06-14 00:00: 00 06-19 04:59 :00 No [id number] 40mg Take 2 tablets by mouth in the morning for 4 days. [facility] enoxaparin (LOVENOX) injection 40 mg 06-13 22:00: 00 Yes 40mg 40 mg, Subcutaneo us, DAILY, First dose on Mon06/13/24 at 1700, Until Discontinu ed, [facility]ine [facility] diphenhydrA MINE (BENADRYL) tablet 50 mg 06-13 17:00: 00 06-14 04:10 :32 No 50mg 50 mg, Oral, Q6H, First dose on Mon06/13/24 at 1200, Until Discontinu ed, Routine [facility] diazePAM (VALIUM) tablet 5 mg 06-13 15:15: 17 Yes 5mg 5 mg, Oral, BIDPRN, Starting on Mon06/13/24 at 1015, Until Discontinu ed, Routine, Anxiety [facility] ondansetron (ZOFRAN (PF)) injection 4 mg 06-13 15:14: 51 Yes 4mg [facility] morpHINE (4 mg/mL) injection 4 mg 06-13 15:14: 49 06-14 15:13 :49 No 4mg 4 mg, Slow IV Push, Q4HPRN, Starting on Mon06/13/24 at 1014, Until Mon06/14/24 at 1013, Routine, Pain (scale 7-10) [facility] HYDROcodone -acetaminop hen (NORCO 5) tablet 1 tablet 06-13 15:14: 31 06-15 15:13 :31 No 1{tbl} 1 tablet, Oral, Q6HPRN, Starting on Mon06/13/24 at 1014, Until Mon06/15/24 at 1013, Routine, Pain (scale 4-6) [facility] acetaminoph en (TYLENOL) tablet 650 mg 06-13 15:14: 25 Yes 650mg [facility] NaCl 0.9% (NS) bolus infusion 1,000 mL 06-13 13:30: 00 06-13 13:36 :00 No 1000mL at 999 mL/hr, 1,000 mL, IV Infusion, ONCE, 1 dose, On Mon06/13/24 at 0830, STAT [facility] methylpredn isolone sod succ (SOLU-MEDRO L) injection 125 mg 06-13 13:30: 00 06-13 12:52 :00 No 125mg 125 mg, Intravenou s, ONCE, 1 dose, On Mon06/13/24 at 0830, [address] [facility] diphenhydrA MINE (BENADRYL) injection 50 mg 06-13 12:45: 00 06-13 12:51 :00 No 50mg 50 mg, Intravenou s, ONCE, 1 dose, On Catherine 06/13/24 at 0745, [place] [facility] famotidine (PEPCID (PF)) injection 20 mg 06-13 12:45: 00 06-13 12:51 :00 No 20mg 20 mg, Slow IV Push, ONCE, 1 dose, On Catherine 06/13/24 at 0745, [facility] OMEPRAZOLE ORAL 06-08 16:16: 51 06-08 00:00 :00 No 40mg Take 40 mg by mouth. [facility] diazePAM (VALIUM) tablet 2.5 mg 06-08 16:01: 34 Yes 2.5mg 2.5 mg, Oral, BIDPRN, Starting on 06/08/24 at 1101, Until Discontinu ed, Routine, Anxiety [facility] HYDROcodone -acetaminop hen (NORCO 5) tablet 1 tablet 06-08 14:42: 22 Yes 1{tbl} 1 tablet, Oral, Q6HPRN, Starting on 06/08/24 at 0942, Until Discontinu ed, Routine, Pain (scale 4-6) [facility] ketorolac (TORADOL) injection 30 mg 06-08 14:41: 51 06-10 14:40 :51 No 30mg 30 mg, Slow IV Push, Q8HPRN, Starting on 06/08/24 at 0941, Until 06/10/24 at 0940, Routine, Pain (scale 7-10) [facility] predniSONE (DELTASONE) tablet 40 mg 06-08 14:00: 00 Yes 40mg 40 mg, Oral, DAILY, First dose on 06/08/24 at 0900, Until Discontinu ed, Routine [facility] enoxaparin (LOVENOX) injection 40 mg 06-08 14:00: 00 Yes 40mg 40 mg, Subcutaneo us, DAILY, First dose on Mon06/08/24 at 0900, Until Discontinu ed, Routine [facility] HYDRO[facility]one -acetaminop hen (NORCO 5) tablet 1 tablet 06-08 13:33: 06 06-08 14:42 :37 No 1{tbl} 1 tablet, Oral, Q6HPRN, Starting on Mon06/08/24 at 0833, Until Mon06/08/24 at 0942, Routine, Pain (scale 7-10) [facility] mupirocin (BACTROBAN OINT) 2 % oinintment 06-08 13:00: 00 Yes [facility] diphenhydrA MINE (BENADRYL) injection 25 mg 06-08 05:00: 00 Yes 25mg 25 mg, Intravenou s, Q6H, First dose on Mon06/08/24 at 0000, Until Discontinu ed, Routine [facility] methylpredn isolone sod succ (SOLU-MEDRO L) injection 80 mg 06-08 05:00: 00 06-08 13:32 :18 No 80mg 80 mg, Intravenou s, Q6H, First dose (after last modificati on) on Mon06/08/24 at 0000, Until Discontinu ed, [address] [facility] albuterol (PROVENTIL) 2.5 mg /3 mL (0.083 %) nebulizer solution 2.5 mg 06-08 02:11: 00 Yes 2.5mg 2.5 mg, Inhalation , Q6HPRN, 4 doses, Starting on Mon06/07/24 at 2111, Until Discontinu ed, Routine, Shortness of Breath, Wheezing, Bronchospa sm, Chest tightness [facility] hydrocortis one 1 % cream 06-08 01:45: 00 Yes Topical (Apply To Affected Areas), DAILY, First dose on Mon06/07/24 at 2045, Until Discontinu ed, Routine [facility] famotidine (PEPCID (PF)) injection 20 mg 06-08 01:45: 00 Yes 20mg 20 mg, Slow IV Push, Q12H, First dose (after last reorder) on Mon06/07/24 at 2045, Until Discontinu ed, Routine [facility] ondansetron (ZOFRAN (PF)) injection 4 mg 06-08 01:44: 36 Yes 4mg 4 mg, Slow IV Push, Q6HPRN, Starting on Mon06/07/24 at 2043, Until Discontinu ed, [place], Nausea and Vomiting (N/V) [facility] morpHINE (4 mg/mL) injection 4 mg 06-08 01:40: 03 06-08 13:33 :26 No 4mg 4 mg, Slow IV Push, Q4HPRN, Starting on Mon06/07/24 at 0, Until 06/08/24 at 0833, Routine, Pain (scale 7-10), Pain (scale 4-6) [facility] ondansetron 4 mg disintegrat ing tablet 06-08 00:00: 00 Yes [id number] 4mg Take 1 tablet by mouth every 8 (eight) hours as needed for Nausea and Vomiting (N/V). [facility] HYDROcodone -acetaminop hen 5-325 mg tablet 06-08 00:00: 00 06-16 04:59 :00 No [id number] 1{tbl} Take 1 tablet by mouth every 6 (six) hours as needed for Pain (scale 4-6) for up to 7 days. Indication s: acute pain [facility] diphenhydrA MINE 50 mg capsule 06-08 00:00: 00 06-14 00:00 :00 No [id number] 50mg Take 1 capsule by mouth every 4 (four) hours as needed for Allergies or Itching for up to 5 days. [facility] ketorolac 10 mg tablet 06-08 00:00: 00 06-13 04:59 :00 No [id number] 10mg Take 1 tablet by mouth every 6 (six) hours as needed for Alternate with [place] for pain scale 4-6 for up to 4 days. [facility] predniSONE 20 mg tablet 06-08 00:00: 00 06-12 04:59 :00 No [id number] 20mg Take 1 tablet by mouth in the morning for 3 days. [facility] diphenhydrA MINE (BENADRYL) injection 25 mg 06-07 23:30: 00 06-07 23:24 :00 No 25mg 25 mg, Slow IV Push, ONCE, 1 dose, On Mon06/07/24 at 1830, STAT [facility] morpHINE (4 mg/mL) injection 4 mg 06-07 22:45: 00 06-07 22:39 :00 No 4mg 4 mg, Slow IV Push, ONCE, 1 dose, On Mon06/07/24 at 1745, STAT [facility] ondansetron (ZOFRAN (PF)) injection 4 mg 06-07 22:45: 00 06-07 22:39 :00 No 4mg 4 mg, Slow IV Push, ONCE, 1 dose, On Mon06/07/24 at 1745, [facility] EPINEPHrine 1:1,000 (1 mg/mL) (ADRENALIN) injection 0.3 mg 06-07 22:00: 00 06-07 22:00 :00 No .3mg 0.3 mg, Subcutaneo us, ONCE, 1 dose, On Mon06/07/24 at 1700, [facility] famotidine (PEPCID (PF)) injection 20 mg 06-07 21:45: 00 06-07 21:51 :00 No 20mg 20 mg, Slow IV Push, ONCE, 1 dose, On Mon06/07/24 at 1645, [facility] diphenhydrA MINE (BENADRYL) injection 25 mg 06-07 21:45: 00 06-07 21:46 :00 No 25mg 25 mg, Slow IV Push, ONCE, 1 dose, On Mon06/07/24 at 1645, [place] [facility] dexamethaso ne sod phos PF injection 10 mg 06-07 21:45: 00 06-07 21:47 :00 No 10mg 10 mg, Slow IV Push, ONCE, 1 dose, On Mon06/07/24 at 1645, 1 mL [facility] diazePAM 2 MG diazePAM 2 MG 10-24 00:00: 00 No 1{table t_as_ne eded} QD diazePAM 2 MG Toradol (Ketorolac) Toradol (Ketorolac) 01-19 00:00: 00 No 60mg [facility] piperacilli n-tazobacta m (ZOSYN) 3.375 g in NaCl 0.9% (NS) 100 mL MINI-BAG 2020-10 18:15: 00 08-04 18:10 :00 No 3.375g 3.375 g, IV Piggyback, ONCE, 1 dose, On Mon08/04/21 at 1315, Administer over 30 Minutes, 100 mL
Reas on for Anti-Infec tive: Empiric Therapy for Suspected Infection< br>Empiric Therapy Site: Abdominal< br>Duratio n of therapy: 72 hours [facility] ondansetron (ZOFRAN (PF)) injection 4 mg 2020-10 17:30: 00 08-04 16:38 :00 No 4mg 4 mg, Slow IV Push, ONCE, 1 dose, On Mon08/04/21 at 1230, Routine [facility] iopamidol (ISOVUE 370-500 mL) injection 120 mL 2020-10 16:48: 00 08-04 16:48 :00 No [id number] 120mL 120 mL, Intravenou s, ONCE, 1 dose, On Mon08/04/21 at 1200, Routine [facility] NaCl 0.9% (NS) bolus infusion 1,000 mL 2020-10 16:30: 00 08-04 18:30 :00 No 1000mL at 999 mL/hr, 1,000 mL, IV Infusion, ONCE, 1 dose, On Mon08/04/21 at 1130, STAT [facility] morpHINE injection 4 mg 2020-10 16:26: 36 Yes 4mg 4 mg, Slow IV Push, Q4HPRN, Starting on Mon08/04/21 at 1126, Until Discontinu ed, Routine, Pain (scale 7-10) [facility] ondansetron 4 mg disintegrat ing tablet 2020-10 00:00: 00 06-08 00:00 :00 No [id number] 4mg Take 1 tablet by mouth every 8 (eight) hours as needed for Nausea and Vomiting (N/V). [facility] ibuprofen (IBU) tablet 600 mg 05-20 22:00: 00 05-21 09:59 :00 No 600mg 600 mg, Oral, ONCE, 1 dose, Catherine 05/20/21 at 1700, [facility] ibuprofen 600 mg tablet 05-20 00:00: 00 06-08 00:00 :00 No [id number] 600mg Take 1 tablet by mouth every 6 (six) hours as needed for Pain (scale 4-6). [facility] acetaminoph en-codeine 300-30 mg tablet 05-20 00:00: 00 06-08 00:00 :00 No [id number] 1{tbl} Take 1 tablet by mouth every 4 (four) hours as needed for Pain (scale 4-6). Indication s: acute pain [facility] acetaminoph en (TYLENOL) tablet 650 mg 01-21 22:30: 00 01-21 21:29 :00 No 650mg 650 mg, Oral, ONCE, 1 dose, Catherine 01/21/21 at 1730, [facility] metoclopram rene HCl (REGLAN) injection 10 mg 01-21 21:45: 00 01-21 20:53 :00 No 10mg 10 mg, Slow IV Push, ONCE, 1 dose, Catherine 01/21/21 at 1645, [facility] ketorolac (TORADOL) injection 30 mg 01-21 20:45: 00 01-21 20:54 :00 No 30mg 30 mg, Slow IV Push, ONCE, 1 dose, Catherine 01/21/21 at 1545, [facility]
Fa culty member approving Restricted medication : SANDEE GUILLEN [facility] ondansetron (ZOFRAN (PF)) injection 4 mg 01-21 20:30: 00 01-21 19:40 :00 No 4mg 4 mg, Slow IV Push, ONCE, 1 dose, Catherine 01/21/21 at 1530, [facility] NaCl 0.9% (NS) bolus infusion 1,000 mL 01-21 19:30: 00 01-21 21:15 :00 No 1000mL at 999 mL/hr, 1,000 mL, IV Infusion, ONCE, 1 dose, Catherine 01/21/21 at 1430, [facility] ondansetron (ZOFRAN ODT) 4 mg disintegrat ing tablet 01-21 00:00: 00 08-04 00:00 :00 No [id number] 4mg Take 1 tablet by mouth every 8 (eight) hours as needed for Nausea and Vomiting (N/V). [facility] iohexol (OMNIPAQUE 350 BULK-100 mL) injection 100 mL 2019-10 15:00: 00 10-20 14:52 :00 No 100mL 100 mL, Intravenou s, ONCE, 1 dose, 10/20/20 at 0915, Routine [facility] ondansetron (ZOFRAN (PF)) injection 4 mg 2019-10 15:00: 00 10-20 14:01 :00 No 4mg 4 mg, Slow IV Push, ONCE, 1 dose, 10/20/20 at 0900, [facility] morpHINE injection 4 mg 2019-10 15:00: 00 10-20 14:03 :00 No 4mg 4 mg, Slow IV Push, ONCE, 1 dose, 10/20/20 at 0900, STAT [facility] diazePAM 2 mg tablet 2019-10 00:00: 00 Yes [id number] 2mg Take 1 tablet by mouth 3 (three) times daily as needed for Muscle Spasms. [facility] ibuprofen 800 mg tablet 2019-10 00:00: 00 06-08 00:00 :00 No [id number] 800mg Take 1 tablet by mouth every 8 (eight) hours. [facility] ibuprofen (IBU) tablet 600 mg 07-15 22:45: 00 07-15 21:58 :00 No 600mg 600 mg, Oral, ONCE, 1 dose, 07/15/20 at 1745, [place] [facility] dicyclomine (BENTYL) 10 mg capsule 07-15 00:00: 00 06-08 00:00 :00 No [id number] 10mg Take 1 capsule by mouth 4 (four) times daily as needed for Abdominal pain. [facility] ACETAMINOPH EN EXTRA STRENGTH ORAL 01-16 18:34: 08 01-16 00:00 :00 No Take by mouth. [facility] traMADol 50 mg tablet 01-16 00:00: 00 06-08 00:00 :00 No [id number] 50mg Take 1 tablet by mouth every 8 (eight) hours as needed (moderate pain). [facility] OMEPRAZOLE ORAL 01-05 14:17: 39 Yes 40mg Take 40 mg by mouth. [facility] ACETAMINOPH EN EXTRA STRENGTH ORAL 01-05 14:17: 39 Yes Take by mouth. [facility] BUPROPION HCL ORAL 01-05 14:17: 39 Yes Take by mouth. [facility] OMEPRAZOLE ORAL 01-05 09:17: 39 Yes 40mg Take 40 mg by mouth. [facility] HYDROcodone -acetaminop hen 5-325 mg tablet 01-05 00:00: 00 01-16 00:00 :00 No [id number] 1{tbl} Take 1 tablet by mouth every 6 (six) hours as needed for Pain (scale 4-6) or Pain (scale 7-10). [facility] meperidine (DEMEROL) injection 50 mg 01-02 18:45: 00 01-02 18:43 :00 No 50mg 50 mg, Intravenou s, ONCE, 1 dose, Mon01/03/20 at 1345, [place], PACU
En ter indication for use: [facility]
member of congress approving Restricted medication : SONDRA CHASE [facility] morpHINE injection 2 mg 01-02 18:42: 44 Yes 2mg 2 mg, Slow IV Push, Q5MIN PRN, 5 doses, Starting Mon01/03/20 at 1342, Until Discontinu ed, Routine, Pain (scale 4-6), PACU [facility] ondansetron (ZOFRAN (PF)) injection 4 mg 01-02 18:42: 44 Yes 4mg 4 mg, Slow IV Push, PRN, 1 dose, Starting Mon01/03/20 at 1342, Until Discontinu ed, Routine, Nausea and Vomiting (N/V), PACU [facility] lactated ringers IV infusion 1,000 mL 01-02 18:30: 00 Yes 1000mL at 75 mL/hr, 1,000 mL, IV Infusion, CONTINUOUS , Starting Mon01/03/20 at 1330, Until Discontinu ed, Routine, PACU [facility] HYDROcodone -acetaminop hen (NORCO 5) 5-325 mg tablet 1 tablet 01-02 18:30: 00 01-02 19:07 :00 No 1{tbl} 1 tablet, Oral, ONCE, 1 dose, Mon01/03/20 at 1330, Routine, PACU [facility] HYDROcodone -acetaminop hen (NORCO) 10-325 mg tablet 1 tablet 01-02 18:18: 14 Yes 1{tbl} 1 tablet, Oral, PRN, 1 dose, Starting Mon01/03/20 at 1318, Until Discontinu ed, Routine, Pain (scale 7-10), DSU Recovery [facility] ibuprofen (IBU) tablet 800 mg 01-02 18:18: 14 Yes 800mg 800 mg, Oral, PRN, 1 dose, Starting Mon01/03/20 at 1318, Until Discontinu ed, Routine, Pain (scale 1-3), DSU Recovery [facility] morpHINE injection 2 mg 01-02 18:17: 54 Yes 2mg 2 mg, Slow IV Push, Q5MIN PRN, 5 doses, Starting Mon01/03/20 at 1317, Until Discontinu ed, Routine, Pain (scale 4-6), PACU [facility] ondansetron (ZOFRAN (PF)) injection 4 mg 01-02 18:17: 54 Yes 4mg 4 mg, Slow IV Push, PRN, 1 dose, Starting Mon01/03/20 at 1317, Until Discontinu ed, Routine, Nausea and Vomiting (N/V), PACU [facility] [id number] IV infusion 1,000 mL 01-02 18:15: 00 Yes 1000mL at 125 mL/hr, IV Infusion, CONTINUOUS , Starting Mon01/03/20 at 1315, Until Discontinu ed, Routine [facility] ketorolac (TORADOL) injection 30 mg 01-02 18:15: 00 01-02 18:38 :00 No 30mg 30 mg, Intramuscu lar, ONCE, 1 dose, Mon01/03/20 at 1330, Routine
member of congress approving Restricted medication : SONDRA CHAVIRA [facility] HYDROcodone -acetaminop hen (NORCO 5) 5-325 mg tablet 2 tablet 01-02 18:10: 00 Yes 2{tbl} 2 tablet, Oral, Q6HPRN, Starting Mon01/03/20 at 1310, Until Discontinu ed, Routine, Pain (scale 7-10) [facility] OMEPRAZOLE ORAL 01-02 17:55: 40 Yes 40mg Take 40 mg by mouth. [facility] ACETAMINOPH EN EXTRA STRENGTH ORAL 01-02 17:55: 40 Yes Take by mouth. [facility] BUPROPION HCL ORAL 01-02 17:55: 40 Yes Take by mouth. [facility] bupivacaine -epinephrin e-pf (SENSORCAIN E W/EPINEPHRI NE) 0.5 %-1:200,000 injection 01-02 17:05: 00 Yes PRN, Starting Mon01/03/20 at 1205, Until Discontinu ed, Routine, Intra-op [facility] sodium chloride 0.9 % irrigation solution 01-02 17:05: 00 Yes PRN, Starting Mon01/03/20 at 1205, Until Discontinu ed, Intra-op [facility] metroNIDAZO LE (FLAGYL I.V.) Piggyback 2,000 mg 01-02 16:02: 40 Yes 2000mg 2,000 mg, IV Piggyback, O.R. HOLDING ONCE, 1 dose, Starting Mon01/03/20 at 1102, Until Discontinu ed, 400 mL, Intra-op<b r>Reason for Anti-Infec tive: Surgical Prophylaxi s
Surgi gabriel Prophylaxi s: BAD CLOTH CHECKER
Duration of therapy: within 24 hours of surgery [facility] lactated ringers IV infusion 1,000 mL 01-02 14:00: 00 01-02 14:58 :00 No 1000mL at 20 mL/hr, 1,000 mL, IV Infusion, ONCE, 1 dose, Mon01/03/20 at 0900, Routine, DSU Pre-op [facility] HYDROcodone -acetaminop hen 5-325 mg tablet 01-02 00:00: 00 01-16 00:00 :00 No [id number] 1{tbl} Take 1 tablet by mouth every 6 (six) hours as needed for Pain (scale 4-6) or Pain (scale 7-10). [facility] ibuprofen 600 mg tablet 12-13 00:00: 00 06-08 00:00 :00 No [id number] 600mg Take 1 tablet by mouth every 6 (six) hours as needed (pain). Take one tablet every 6 hours for 5 days then every 6 hours as needed. [facility] ceFAZolin in dextrose (iso-os) (ANCEF) 2 gram/100 mL Piggyback 2 g 12-10 06:00: 12-10 17:59 :00 No 2g [facility] traMADol 50 mg tablet 12-01 00:00: 00 06-08 00:00 :00 No [id number] 50mg Take 1 tablet by mouth every 6 (six) hours as needed (pain). [facility] BUPROPION HCL ORAL 11-29 23:53: 52 Yes Take by mouth. [facility] ACETAMINOPH EN EXTRA STRENGTH ORAL 11-29 23:03: 45 Yes Take by mouth. [facility] gabapentin 300 mg capsule 11-29 00:00: 01-16 00:00 :00 No [id number] 300mg Take 1 capsule by mouth 3 (three) times daily. [facility] acetaminoph en (TYLENOL EXTRA STRENGTH) 500 mg tablet 11-29 00:00: 01-16 00:00 :00 No [id number] 1000mg Take 2 tablets by mouth every 6 (six) hours. [facility] celecoxib (CELEBREX) 200 mg capsule 11-29 00:00: 01-16 00:00 :00 No [id number] 200mg Take 1 capsule by mouth 2 (two) times daily with meals. [facility] traMADol 50 mg tablet 11-19 00:00: 11-29 00:00 :00 No [id number] 50mg Take 1 tablet by mouth every 8 (eight) hours as needed (pain). [facility] cefTRIAXone (ROCEPHIN) injection 250 mg 11-16 01:00: 11-16 00:05 :00 No 250mg 250 mg, Intramuscu lar, ONCE, 1 dose, Mon11/15/19 at 1900, [place]
Re ason for Anti-Infec tive: Empiric Therapy for Suspected Infection< br>Empiric Therapy Site: Pelvic
Duration of therapy: 72 hours [facility] medroxyPROG ESTERone (DEPO-PROVE RA) injection 150 mg 11-16 00:30: 00 11-15 23:00 :00 No 150mg 150 mg, Intramuscu lar, ONCE, 1 dose, Mon11/15/19 at 1830, Routine [facility] ketorolac (TORADOL) injection 60 mg 11-16 00:30: 00 11-15 23:15 :00 No 60mg 60 mg, Intramuscu lar, ONCE, 1 dose, Mon11/15/19 at 1830, Routine
member of congress approving Restricted medication : SONDRA CHAVIRA [facility] plecanatide (TRULANCE) 3 mg Tab 11-15 23:52: 25 11-15 00:00 :00 No Take by mouth. [facility] doxycycline 100 mg tablet 11-15 00:00: 00 11-29 00:00 :00 No [id number] 100mg Take 1 tablet by mouth 2 (two) times daily. [facility] Kenalog (Triamcinol one) Kenalog (Triamcinol one) 2018-10 00:00: 00 No 40mg [facility] medroxyPROG ESTERone (DEPO-PROVE RA) injection 150 mg 06-07 16:30: 00 06-07 15:23 :00 No 150mg [facility] plecanatide (TRULANCE) 3 mg Tab 06-07 15:15: 28 Yes Take by mouth. [facility] linaCLOtide (LINZESS) 72 mcg Cap 05-11 00:00: 00 06-08 00:00 :00 No [facility] metroNIDAZO LE (FLAGYL) 500 mg tablet 04-17 00:00: 00 11-15 00:00 :00 No [id number] 500mg Take 1 tablet by mouth 2 (two) times daily. [facility] OMEPRAZOLE ORAL 04-10 15:31: 49 Yes 40mg Take 40 mg by mouth. [facility] ACETAMINOPH EN EXTRA STRENGTH ORAL 2018-0 04-10 15:31: 49 Yes Take by mouth. [facility] No known medications No Un olayinka ity [facility] Ondansetron HCl 4 MG Ondansetron HCl [...] height 2024-12-27 07:30:00 63 [in_i] Commo n [facility] weight 2024-12-27 07:30:00 170 [lb_av] Comm on [facility] bmi 2024-12-27 07:30:00 30.11 kg/m2 [facility] blood pressure systolic 2024-12-27 07:30:00 125 mm[Hg] [facility] blood pressure diastolic 2024-12-27 07:30:00 76 mm[Hg] Common [facility] height 2024-06-21 07:50:00 63 [in_i] Commo n [facility] weight 2024-06-21 07:50:00 170 [lb_av] Comm on [facility] bmi 2024-06-21 07:50:00 30.11 kg/m2 [facility] blood pressure systolic 2024-06-21 07:50:00 124 mm[Hg] Common [facility] blood pressure diastolic 2024-06-21 07:50:00 76 mm[Hg] Common [facility] height 2024-06-18 11:00:00 63 [in_i] Commo n [facility] weight 2024-06-18 11:00:00 181 [lb_av] Comm on [facility] temperature 2024-06-18 11:00:00 97.6 [degF] Com mon [facility] bmi 2024-06-18 11:00:00 32.06 kg/m2 Comm [facility] oximetry 2024-06-18 11:00:00 98 % [facility]mo [facility] respiratory rate 2024-06-18 11:00:00 18 /min Common [facility] blood pressure systolic 2024-06-18 11:00:00 127 mm[Hg] Common [facility] blood pressure diastolic 2024-06-18 11:00:00 81 mm[Hg] [facility] Systolic blood pressure 2024-06-14 16:30:00 121 mm[Hg] [facility] Diastolic blood pressure 2024-06-14 16:30:00 71 mm[Hg] [facility] Heart rate 2024-06-14 16:30:00 61 /min [facility] Body temperature 2024-06-14 16:30:00 36.22 Liya [facility] Respiratory rate 2024-06-14 16:30:00 18 /min [facility] Oxygen saturation in Arterial blood by Pulse oximetry 2024-06-14 16:30:00 94 /min [facility] Body weight 2024-06-14 08:07:[address] [facility] BMI 2024-06-14 08:07:00 31.23 kg/m2 [facility] Body height 2024-06-13 18:41:[address] [facility] Heart rate 2024-06-08 22:00:00 75 /min [facility] Oxygen saturation in Arterial blood by Pulse oximetry 2024-06-08 22:00:00 100 /min [facility] Systolic blood pressure 2024-06-08 21:00:00 114 mm[Hg] [place] [facility] Diastolic blood pressure 2024-06-08 21:00:00 77 mm[Hg] [facility] Respiratory rate 2024-06-08 21:00:00 17 /min [facility] Body temperature 2024-06-08 20:00:00 36.28 Liya [facility] Body weight 2024-06-08 09:00:[address] [facility] BMI 2024-06-08 09:00:00 32.79 kg/m2 [facility] Body height 2024-06-08 01:34:[address] [facility] height 2024-01-23 08:00:00 63 [in_i] [facility]mo n [facility] weight 2024-01-23 08:00:00 170 [lb_av] Comm on [facility] bmi 2024-01-23 08:00:00 30.11 kg/m2 Comm on [facility] blood pressure systolic 2024-01-23 08:00:00 124 mm[Hg] Common [facility] blood pressure diastolic 2024-01-23 08:00:00 76 mm[Hg] [facility] height 2023-10-24 10:40:00 63 [in_i] Commo n [facility] weight 2023-10-24 10:40:00 184 [lb_av] Comm on [facility] temperature 2023-10-24 10:40:00 101 [degF] Comm on [facility] bmi 2023-10-24 10:40:00 32.59 kg/m2 Comm on [facility] blood pressure systolic 2023-10-24 10:40:00 128 mm[Hg] [facility] blood pressure diastolic 2023-10-24 10:40:00 78 mm[Hg] Common [facility] height 2023-07-27 15:50:00 63 [in_i] Commo n [facility] weight 2023-07-27 15:50:00 183.4 [lb_av] Co mmon [facility] temperature 2023-07-27 15:50:00 98.2 [degF] Com mon [facility] bmi 2023-07-27 15:50:00 32.48 kg/m2 Comm on [facility] oximetry 2023-07-27 15:50:00 98 % Commo n [facility] respiratory rate 2023-07-27 15:50:00 18 /min Common [facility] blood pressure systolic 2023-07-27 15:50:00 115 mm[Hg] Common [facility] blood pressure diastolic 2023-07-27 15:50:00 64 mm[Hg] Common [facility] height 2023-06-29 09:20:00 63 [in_i] Commo n [facility] height 2023-04-07 08:10:00 63 [in_i] Commo n [facility] weight 2023-04-07 08:10:00 155 [lb_av] Comm on [facility] bmi 2023-04-07 08:10:00 27.45 kg/m2 Comm on [facility] blood pressure systolic 2023-04-07 08:10:00 123 mm[Hg] Common [facility] blood pressure diastolic 2023-04-07 08:10:00 72 mm[Hg] Common [facility] height 2022-12-23 16:10:00 63 [in_i] Commo n [facility] weight 2022-12-23 16:10:00 165 [lb_av] Comm on [facility] bmi 2022-12-23 16:10:00 29.23 kg/m2 Comm on [facility] height 2022-12-15 08:40:00 63 [in_i] Commo n [facility] weight 2022-12-15 08:40:00 165 [lb_av] Comm on [facility] temperature 2022-12-15 08:40:00 98 [degF] Comm on [facility] bmi 2022-12-15 08:40:00 29.23 kg/m2 Comm on [facility] blood pressure systolic 2022-12-15 08:40:00 128 mm[Hg] [facility] blood pressure diastolic 2022-12-15 08:40:00 74 mm[Hg] [facility] height 2022-10-12 16:00:00 63 [in_i] Commo n [facility] weight 2022-10-12 16:00:00 155 [lb_av] Comm on [facility] temperature 2022-10-12 16:00:00 98 [degF] Comm on [facility] bmi 2022-10-12 16:00:00 27.45 kg/m2 Comm on [facility] blood pressure systolic 2022-10-12 16:00:00 132 mm[Hg] [facility] blood pressure diastolic 2022-10-12 16:00:00 76 mm[Hg] [facility] height 2022-08-24 10:50:00 63 [in_i] Commo n [facility] weight 2022-08-24 10:50:00 160.4 [lb_av] Co mmon [facility] temperature 2022-08-24 10:50:00 97.4 [degF] Com mon [facility] bmi 2022-08-24 10:50:00 28.41 kg/m2 Comm on [facility] oximetry 2022-08-24 10:50:00 98 % Commo n [facility] respiratory rate 2022-08-24 10:50:00 18 /min Common [facility] blood pressure systolic 2022-08-24 10:50:00 134 mm[Hg] [facility] blood pressure diastolic 2022-08-24 10:50:00 67 mm[Hg] [facility] height 2022-08-16 16:10:00 63 [in_i] Commo n [facility] weight 2022-08-16 16:10:00 161.7 [lb_av] Co mmon [facility] temperature 2022-08-16 16:10:00 98.0 [degF] Com mon [facility] bmi 2022-08-16 16:10:00 28.64 kg/m2 Comm on [facility] oximetry 2022-08-16 16:10:00 100 % Commo n [facility] respiratory rate 2022-08-16 16:10:00 18 /min [facility] blood pressure systolic 2022-08-16 16:10:00 137 mm[Hg] [facility] blood pressure diastolic 2022-08-16 16:10:00 85 mm[Hg] [facility] height 2022-07-26 14:00:00 63 [in_i] Commo n [facility] weight 2022-07-26 14:00:00 159 [lb_av] Comm on [facility] temperature 2022-07-26 14:00:00 97.4 [degF] Com mon [facility] bmi 2022-07-26 14:00:00 28.16 kg/m2 Comm on [facility] oximetry 2022-07-26 14:00:00 99 % Commo n [facility] respiratory rate 2022-07-26 14:00:00 18 /min Common [facility] blood pressure systolic 2022-07-26 14:00:00 132 mm[Hg] [facility] blood pressure diastolic 2022-07-26 14:00:00 76 mm[Hg] [facility] height 2022-07-08 14:00:00 63 [in_i] Commo n [facility] weight 2022-07-08 14:00:00 161.1 [lb_av] Co mmon [facility] temperature 2022-07-08 14:00:00 98.2 [degF] Com mon [facility] bmi 2022-07-08 14:00:00 28.53 kg/m2 Comm on [facility] oximetry 2022-07-08 14:00:00 96 % Commo n [facility] respiratory rate 2022-07-08 14:00:00 18 /min [facility] blood pressure systolic 2022-07-08 14:00:00 131 mm[Hg] [facility] blood pressure diastolic 2022-07-08 14:00:00 61 mm[Hg] Common [facility] height 2022-05-20 08:00:00 63 [in_i] Commo n [facility] weight 2022-05-20 08:00:00 160 [lb_av] Comm on [facility] temperature 2022-05-20 08:00:00 98 [degF] Comm on [facility] bmi 2022-05-20 08:00:00 28.34 kg/m2 Comm on [facility] blood pressure systolic 2022-05-20 08:00:00 120 mm[Hg] Common [facility] blood pressure diastolic 2022-05-20 08:00:00 72 mm[Hg] Common [facility] height 2022-04-28 14:30:00 63 [in_i] Commo n [facility] weight 2022-04-28 14:30:00 157.8 [lb_av] Co mmon [facility] temperature 2022-04-28 14:30:00 98.0 [degF] Com mon [facility] bmi 2022-04-28 14:30:00 27.95 kg/m2 Comm on [facility] oximetry 2022-04-28 14:30:00 98 % Commo n [facility] respiratory rate 2022-04-28 14:30:00 18 /min [facility] blood pressure systolic 2022-04-28 14:30:00 126 mm[Hg] Common [facility] blood pressure diastolic 2022-04-28 14:30:00 79 mm[Hg] [facility] height 2022-03-30 14:00:00 63 [in_i] Commo n [facility] weight 2022-03-30 14:00:00 156.4 [lb_av] Co mmon [facility] temperature 2022-03-30 14:00:00 98.6 [degF] Com mon [facility] bmi 2022-03-30 14:00:00 27.7 kg/m2 Com[facility] oximetry 2022-03-30 14:00:00 98 % [facility] respiratory rate 2022-03-30 14:00:00 16 /min [facility] blood pressure systolic 2022-03-30 14:00:00 120 mm[Hg] [facility] blood pressure diastolic 2022-03-30 14:00:00 84 mm[Hg] [facility] height 2022-02-24 07:50:00 63 [in_i] Commo n [facility] weight 2022-02-24 07:50:00 164 [lb_av] Comm on [facility] temperature 2022-02-24 07:50:00 98 [degF] Comm on [facility] bmi 2022-02-24 07:50:00 29.05 kg/m2 Comm on [facility] blood pressure systolic 2022-02-24 07:50:00 121 mm[Hg] Common [facility] blood pressure diastolic 2022-02-24 07:50:00 75 mm[Hg] Common [facility] height 2022-01-19 11:00:00 63 [in_i] Commo n [facility] weight 2022-01-19 11:00:00 165.8 [lb_av] Co mmon [facility] temperature 2022-01-19 11:00:00 97.5 [degF] Com mon [facility] bmi 2022-01-19 11:00:00 29.37 kg/m2 Comm on [facility] oximetry 2022-01-19 11:00:00 100 % Commo [facility] respiratory rate 2022-01-19 11:00:00 17 /min [facility] blood pressure systolic 2022-01-19 11:00:00 111 mm[Hg] [facility] blood pressure diastolic 2022-01-19 11:00:00 74 mm[Hg] Common [facility] height 2021-12-22 15:50:00 63 [in_i] Commo n [facility] weight 2021-12-22 15:50:00 160 [lb_av] Comm on [facility] temperature 2021-12-22 15:50:00 98 [degF] Comm on [facility] bmi 2021-12-22 15:50:00 28.34 kg/m2 Comm on [facility] height 2021-09-22 15:40:00 63 [in_i] Commo n [facility] weight 2021-09-22 15:40:00 160 [lb_av] Comm on [facility] temperature 2021-09-22 15:40:00 97.4 [degF] Com mon [facility] bmi 2021-09-22 15:40:00 28.34 kg/m2 Comm on [facility] blood pressure systolic 2021-09-22 15:40:00 125 mm[Hg] Common [facility] blood pressure diastolic 2021-09-22 15:40:00 75 mm[Hg] Common [facility] height 2021-08-05 08:20:00 63 [in_i] Commo n [facility] weight 2021-08-05 08:20:00 174 [lb_av] Comm on [facility] bmi 2021-08-05 08:20:00 30.82 kg/m2 Comm on [facility] Systolic blood pressure 2021-08-04 19:00:00 125 mm[Hg] [facility] Diastolic blood pressure 2021-08-04 19:00:00 85 mm[Hg] [facility] Heart rate 2021-08-04 19:00:00 69 [facility] Respiratory rate 2021-08-04 19:00:00 16 /min [facility] Oxygen saturation in Arterial blood by Pulse oximetry 2021-08-04 19:00:00 97 /min [facility] Body temperature 2021-08-04 17:00:00 36.72 Liya [facility] Body height 2021-08-04 16:09:[address] [facility] Body weight 2021-08-04 16:09:[address] [facility] BMI 2021-08-04 16:09:00 28.34 kg/m2 [facility] Systolic blood pressure 2021-05-20 17:04:00 134 mm[Hg] [facility] Diastolic blood pressure 2021-05-20 17:04:00 87 mm[Hg] [facility] Heart rate 2021-05-20 17:04:00 101 /min [facility] Body temperature 2021-05-20 17:04:00 37.11 Liya [facility] Respiratory rate 2021-05-20 17:04:00 18 /min [facility] Body weight 2021-05-20 17:04:[address] [facility] BMI 2021-05-20 17:04:00 31.89 kg/m2 [facility] Oxygen saturation in Arterial blood by Pulse oximetry 2021-05-20 17:04:00 98 /min [facility] Systolic blood pressure 2021-01-21 21:10:00 124 mm[Hg] [facility] Diastolic blood pressure 2021-01-21 21:10:00 63 mm[Hg] [facility] Heart rate 2021-01-21 21:10:00 98 /min [facility] Body temperature 2021-01-21 21:10:00 37.78 Liya [facility] Respiratory rate 2021-01-21 21:10:00 20 /min [facility] Oxygen saturation in Arterial blood by Pulse oximetry 2021-01-21 21:10:00 100 /min [facility] Body weight 2021-01-21 18:05:[address] [facility] BMI 2021-01-21 18:05:00 31.89 kg/m2 [facility] Systolic blood pressure 2020-10-20 15:50:00 123 mm[Hg] [facility] Diastolic blood pressure 2020-10-20 15:50:00 81 mm[Hg] [facility] Heart rate 2020-10-20 15:50:00 88 /min [facility] Respiratory rate 2020-10-20 15:50:00 18 /min [facility] Oxygen saturation in Arterial blood by Pulse oximetry 2020-10-20 15:50:00 97 /min [facility] Body temperature 2020-10-20 13:37:00 36.22 Liya [facility] Body height 2020-10-20 13:37:[address] [facility] Body weight 2020-10-20 13:37:[address] [facility] BMI 2020-10-20 13:37:00 33.66 kg/m2 [facility] Systolic blood pressure 2020-07-15 23:05:00 148 mm[Hg] [facility] Diastolic blood pressure 2020-07-15 23:05:00 100 mm[Hg] [facility] Heart rate 2020-07-15 23:05:00 88 /min Unive [facility] Body temperature 2020-07-15 23:05:00 37.17 Liya [facility] Respiratory rate 2020-07-15 23:05:00 18 /min [facility] Oxygen saturation in Arterial blood by Pulse oximetry 2020-07-15 23:05:00 99 /min [facility] Body weight 2020-07-15 21:28:[address] [facility] BMI 2020-07-15 21:28:00 30.11 kg/m2 [facility] Systolic blood pressure 2020-01-03 19:26:00 121 mm[Hg] [facility] Diastolic blood pressure 2020-01-03 19:26:00 74 mm[Hg] [facility] Heart rate 2020-01-03 19:26:00 85 /min Unive [facility] Respiratory rate 2020-01-03 19:26:00 16 /min [facility] Oxygen saturation in Arterial blood by Pulse oximetry 2020-01-03 19:26:00 98 /min [facility] Body temperature 2020-01-03 14:01:00 37.22 Liya [facility] Body height 2020-01-03 14:01:[address] [facility] Body weight 2020-01-03 14:01:[address] [facility] BMI 2020-01-03 14:01:00 30.11 kg/m2 [facility] Systolic blood pressure 2019-11-29 23:03:00 127 mm[Hg] [facility] Diastolic blood pressure 2019-11-29 23:03:00 96 mm[Hg] [facility] Heart rate 2019-11-29 23:03:00 86 /min Un[facility] Body temperature 2019-11-29 23:03:00 36.83 Liya [facility] Respiratory rate 2019-11-29 23:03:00 18 /min [facility] Body height 2019-11-29 23:03:00 160 cm [facility] Body weight 2019-11-29 23:03:[address] [facility] BMI 2019-11-29 23:03:00 29.94 kg/m2 [facility] Systolic blood pressure 2019-11-15 22:16:00 129 mm[Hg] [facility] Diastolic blood pressure 2019-11-15 22:16:00 86 mm[Hg] [facility] Heart rate 2019-11-15 22:16:00 82 /min [facility] Body temperature 2019-11-15 22:16:00 36.78 Liya [facility] Respiratory rate 2019-11-15 22:16:00 18 /min [facility] Body height 2019-11-15 22:16:[address] [facility] Body weight 2019-11-15 22:16:[address] [facility] BMI 2019-11-15 22:16:00 29.88 kg/m2 [facility] Systolic blood pressure 2019-06-07 15:13:00 110 mm[Hg] [facility] Diastolic blood pressure 2019-06-07 15:13:00 72 mm[Hg] [facility] Heart rate 2019-06-07 15:13:00 77 /min [facility] Body temperature 2019-06-07 15:13:00 36.83 Liya [facility] Respiratory rate 2019-06-07 15:13:00 20 /min [facility] Body height 2019-06-07 15:13:[address] [facility] Body weight 2019-06-07 15:13:[address] [facility] BMI 2019-06-07 15:13:00 26.36 kg/m2 [facility] Procedures Procedure Date / Time Performed Performing Clinician Source BASIC METABOLIC PANEL (NA, K, CL, CO2, GLUCOSE, BUN, CREATININE, CA) 2024-06-14 09:48:00 Michelle Toney [facility] CBC WITH DIFF 2024-06-14 09:48:00 Michelle Toney [facility] BASIC METABOLIC PANEL (NA, K, CL, CO2, GLUCOSE, BUN, CREATININE, CA) 2024-06-08 09:42:00 Michelle Toney [facility] CBC WITH DIFF 2024-06-08 09:42:00 Michelle Toney [facility] COMP. METABOLIC PANEL ([id number]) 2024-06-08 00:15:00 Sergio [facility] CBC WITH DIFF 2024-06-07 [facility]:22[facility]24-06-07 21:36:00 Sergio [facility] CT ABDOMEN PELVIS W CONTRAST 2021-08-04 16:53:22 Singer [facility] LIPASE 2021-08-04 16:37:00 Moore [facility] COMP. METABOLIC PANEL ([id number]) 2021-08-04 16:37:00 Singer [facility] CBC WITH DIFF 2021-08-04 16:37:00 Moore [facility] URINALYSIS 2021-08-04 16:37:00 Moore [facility] CONSENT/REFUSAL FOR DIAGNOSIS AND TREATMENT 2021-08-04 15:58:11 Doctor Unassigned, [place] [facility] CT KNEE RIGHT WO CONTRAST 2021-05-20 19:15:50 Blaine Perez [facility] XR KNEE 3 VW RIGHT 2021-05-20 17:34:16 Erika Guillen [facility] NOTICE OF PRIVACY PRACTICES 2021-05-20 17:00:21 Doctor Unassigned, [place] [facility] CONSENT/REFUSAL FOR DIAGNOSIS AND TREATMENT 2021-05-20 17:00:06 Doctor Unassigned, [place] [facility] URINALYSIS 2021-01-21 20:55:00 Sandee [facility] BASIC METABOLIC PANEL (NA, K, CL, CO2, GLUCOSE, BUN, CREATININE, CA) 2021-01-21 19:37:00 Sandee Guillen [facility] CBC WITH DIFF 2021-01-21 19:37:00 Sandee Guillen [facility] XR CHEST 1 VW 2021-01-21 18:33:12 Sandee Guillen [facility] COVID-19 (ID NOW RAPID TESTING) 2021-01-21 18:09:00 Sandee Guillen [facility] CONSENT/REFUSAL FOR DIAGNOSIS AND TREATMENT 2021-01-21 17:52:09 Doctor Unassigned, [place] [facility] CT ANGIOGRAM NECK 2020-10-20 14:59:45 Aris Hill [facility] POCT TEST 2020-10-20 14:00:00 Jarrett Hill [facility] HEPATIC FUNCTION PANEL (06698) (ALB,T.PRO,BILI T,BU/BC,ALT,AST,ALK PHOS) 2020-10-20 13:57:00 Aris Hill [facility] BASIC METABOLIC PANEL (NA, K, CL, CO2, GLUCOSE, BUN, CREATININE, CA) 2020-10-20 13:57:00 Aris Hill [facility] CBC WITH DIFF 2020-10-20 13:57:[address] [facility] PROTHROMBIN TIME / INR 2020-10-20 13:57:00 Favio Hill [facility] ACTIVATED PARTIAL THRMPLAS LATOSHA 2020-10-20 13:57:00 Aris Hill [facility] NOTICE OF PRIVACY PRACTICES 2020-10-20 13:42:58 Doctor Unassigned, [place] [facility] CONSENT/REFUSAL FOR DIAGNOSIS AND TREATMENT 2020-10-20 13:34:05 Doctor Unassigned, [place] [facility] RAPID STREP SCREEN FOR GROUP A 2020-07-15 21:57:00 Clarence Weiss [facility] NOTICE OF PRIVACY PRACTICES 2020-07-15 21:13:13 Doctor Unassigned, [place] [facility] CONSENT/REFUSAL FOR DIAGNOSIS AND TREATMENT 2020-07-15 21:12:59 Doctor Unassigned, [place] [facility] LAPAROSCOPIC TOTAL ABDOMINAL HYSTERECTOMY 2020-01-03 14:57:00 Jhon [facility] CYSTOSCOPY 2020-01-03 14:57:00 Sondra Chavira [facility] SALPINGECTOMY 2020-01-03 14:57:00 Sondra Chavira [facility] BASIC METABOLIC PANEL (NA, K, CL, CO2, GLUCOSE, BUN, CREATININE, CA) 2020-01-03 14:28:00 Carmen Kennedy [facility] CBC WITH DIFFERENTIAL 2020-01-03 14:28:00 Vilma Kennedy [facility] HB ABO GROUPING 2020-01-03 14:24:[address] [facility] [facility] 2020-01-03 14:00:00 Keith Oliva [facility] DAY SURGERY - ADC 2020-01-03 05:01:00 Doctor Dulce ssigned, [place] [facility] ASSIGNMENT OF BENEFITS 2019-11-15 23:27:34 Docto r Unassigned, [place] [facility] POCT TEST 2019-11-15 00:00:00 Valerie Chavira [facility] Encounters Start Date/Time End Date/Time Encounter Type Admission Type Attending [facility] Care Facility Care Department Encounter ID Source 2024-12-25 11:07:00 Outpatient Smart, [facility] [id number] [facility] 2024-06-20 13:39:00 Outpatient Smart, [facility] [id number] [facility] 2024-06-17 08:43:00 Outpatient Smart, [facility] [id number] [facility] 2024-01-22 09:10:00 Outpatient Smart, [facility] STLC [id number] [facility] 2024-01-19 13:47:00 Outpatient Smart, [facility] STLC [id number] [facility] 2023-10-24 10:09:00 Outpatient Smart, [facility] STLC [id number] [facility] 2023-04-05 10:16:00 Outpatient Smart, [facility] STLC [id number] [facility] 2022-12-15 08:16:00 Outpatient Smart, [facility] STLC [id number] [facility] 2022-10-11 10:39:01 Outpatient Smart, Benny STLMLC STLMLC [id number] [facility] 2022-08-22 13:19:00 Outpatient Smart, Benny STLMLC STLMLC [id number] [facility] 2022-05-18 11:08:00 Outpatient Smart, Benny STLMLC STLMLC [id number] [facility] 2022-05-06 09:31:00 Outpatient Smart, Benny STLMLC STLMLC [id number] [facility] 2022-01-20 08:29:00 Outpatient Smart, Benny STLMLC STLMLC [id number] [facility] 2021-11-17 14:19:29 Outpatient Smart, Benny STLMLC STLMLC [id number] [facility] 2021-11-17 13:45:03 Outpatient Smart, Benny STLMLC STLMLC [id number] [facility] 2021-11-17 12:23:40 Outpatient Smart, Benny STLMLC STLMLC [id number] [facility] 2021-11-17 12:08:39 Outpatient Smart, Benny STLMLC STLMLC [id number] [facility] 2021-11-17 11:29:40 Outpatient Smart, Benny STLMLC STLMLC [id number] [facility] 2021-11-17 11:24:43 Outpatient Smart, Benny STLMLC STLMLC [id number] [facility] 2021-11-17 11:24:07 Outpatient Smart, Benny STLMLC STLMLC [id number] [facility] 2021-08-24 06:27:16 Emergency [facility] [id number] [facility] 2021-08-23 11:45:25 Emergency [facility] [id number] [facility] 2021-08-21 13:31:42 Emergency [facility] [id number] [facility] 2021-08-20 19:06:29 Emergency [facility] [id number] [facility] 2021-08-19 12:19:52 Inpatient Jasbir CHAVIRA, SONDRA CHAVIRA, SONDRA [facility] FABRIZIO [id number] [facility] 2024-12-27 00:00:00 2024-12-27 00:00:00 OFFICE VISIT ESTAB PT LEVEL 4 STLMLC STLC [id number] [facility] 2024-12-20 00:00:00 2024-12-20 00:00:00 (TEL) STLC STLC [id number] [facility] 2024-06-12 00:00:00 2024-07-13 18:19:05 Patient Secure Msg Doctor Unassigned, [place] Doctor Unassigned, [place] [facility] 1.2.840.114 350.1.13.10 4.2.7.2.686 [id number] [facility] 2024-07-08 00:00:00 2024-07-08 00:00:00 (TEL) STLC STLMLC [id number] [facility] 2024-06-21 00:00:00 2024-06-21 00:00:00 OFFICE VISIT ESTAB PT LEVEL 4 STLMLC STLMLC [id number] [facility] 2024-06-17 00:00:00 2024-06-18 12:01:18 Transition of Care Yoli Rhodes Marisa M [address] 1.2.840.114 350.1.13.10 4.2.7.2.686 [id number] [facility] 2024-06-18 00:00:00 2024-06-18 00:00:00 OFFICE VISIT ESTAB PT LEVEL 3 STLMLC STLMLC [id number] [facility] 2024-06-13 07:30:00 2024-06-14 15:25:00 Outpatient X MICHELLE T[facility]Y [facility] [id number] [facility] 2024-06-13 07:30:00 2024-06-14 15:25:00 Emergency Breanna Meza Jelani [facility] 1.2.840.114 350.1.13.10 4.2.7.2.686 [id number] [facility] 2024-06-14 00:00:00 2024-06-14 00:00:00 (TEL) STLMLC STLMLC [id number] [facility] 2024-06-10 00:00:00 2024-06-11 17:11:44 Transition of Care Yoli Rhodes [facility] 1.2.840.114 350.1.13.10 4.2.7.2.686 [id number] [facility] 2024-06-07 16:38:00 2024-06-08 17:10:00 Inpatient X MICHELLE TONEY [facility] [id number] [facility] 2024-06-07 16:38:00 2024-06-08 17:10:00 Hospital Encounter Aris Hill Jelani [facility] 1.2.840.114 350.1.13.10 4.2.7.2.686 [id number] [facility] 2024-01-23 00:00:00 2024-01-23 00:00:00 OFFICE VISIT ESTAB PT LEVEL 4 STLMLC STLMLC [id number] [facility] 2023-11-02 00:00:00 2023-11-02 00:00:00 (TEL) STLMLC STLMLC [id number] [facility] 2023-10-24 00:00:00 2023-10-24 00:00:00 (TEL) STLMLC STLMLC [id number] [facility] 2023-10-24 00:00:00 2023-10-24 00:00:00 OFFICE VISIT ESTAB PT LEVEL 4 STLMLC STLMLC [id number] [facility] 2023-10-24 00:00:00 2023-10-24 00:00:00 (TEL) STLMLC STLMLC [id number] [facility] 2023-07-27 00:00:00 2023-07-27 00:00:00 PREV VISIT EST AGE 18-39 STLMLC STLMLC [id number] [facility] 2023-07-12 00:00:00 2023-07-12 00:00:00 (TEL) STLMLC STLMLC [id number] [facility] 2023-06-29 00:00:00 2023-06-29 00:00:00 OFFICE VISIT ESTAB PT LEVEL 3 STLMLC STLMLC [id number] [facility] 2023-06-29 00:00:00 2023-06-29 00:00:00 (TEL) STLMLC STLMLC [id number] [facility] 2023-04-07 00:00:00 2023-04-07 00:00:00 OFFICE VISIT ESTAB PT LEVEL 4 STLMLC STLMLC [id number] [facility] 2022-12-23 00:00:00 2022-12-23 00:00:00 OFFICE VISIT ESTAB PT LEVEL 3 STLMLC STLMLC [id number] [facility] 2022-12-23 00:00:00 2022-12-23 00:00:00 (TEL) STLMLC STLMLC [id number] [facility] 2022-12-16 00:00:00 2022-12-16 00:00:00 (TEL) STLMLC STLMLC [id number] [facility] 2022-12-15 00:00:00 2022-12-15 00:00:00 OFFICE VISIT ESTAB PT LEVEL 4 STLMLC STLMLC [id number] [facility] 2022-10-12 00:00:00 2022-10-12 00:00:00 OFFICE VISIT ESTAB PT LEVEL 4 STLMLC STLMLC [id number] [facility] 2022-08-30 00:00:00 2022-08-30 00:00:00 (TEL) STLMLC STLMLC [id number] [facility] 2022-08-24 00:00:00 2022-08-24 00:00:00 OFFICE VISIT ESTAB PT LEVEL 4 STLMLC STLMLC [id number] [facility] 2022-08-16 00:00:00 2022-08-16 00:00:00 (TEL) STLMLC STLMLC [id number] [facility] 2022-08-16 00:00:00 2022-08-16 00:00:00 OFFICE VISIT EST PT LEVEL 3 STLMLC STLMLC [id number] [facility] 2022-07-26 00:00:00 2022-07-26 00:00:00 OFFICE VISIT EST PT LEVEL 3 STLMLC STLMLC [id number] [facility] 2022-07-25 00:00:00 2022-07-25 00:00:00 (TEL) STLMLC STLMLC [id number] [facility] 2022-07-08 00:00:00 2022-07-08 00:00:00 (TEL) STLMLC STLMLC [id number] [facility] 2022-07-08 00:00:00 2022-07-08 00:00:00 OFFICE VISIT ESTAB PT LEVEL 2 STLMLC STLMLC [id number] [facility] 2022-06-22 00:00:00 2022-06-22 00:00:00 (TEL) STLMLC STLMLC [id number] [facility] 2022-05-30 00:00:00 2022-05-30 00:00:00 (TEL) STLMLC STLMLC [id number] [facility] 2022-05-20 00:00:00 2022-05-20 00:00:00 OFFICE VISIT ESTAB PT LEVEL 4 STLMLC STLMLC [id number] [facility] 2022-04-28 00:00:00 2022-04-28 00:00:00 PREV VISIT EST AGE 18-39 STLMLC STLMLC [id number] [facility] 2022-04-28 00:00:00 2022-04-28 00:00:00 (TEL) STLMLC STLMLC [id number] [facility] 2022-03-30 00:00:00 2022-03-30 00:00:00 (TEL) STLMLC STLMLC [id number] [facility] 2022-03-30 00:00:00 2022-03-30 00:00:00 OFFICE VISIT ESTAB PT LEVEL 4 STLMLC STLMLC [id number] [facility] 2022-03-29 00:00:00 2022-03-29 00:00:00 (TEL) STLMLC STLMLC [id number] [facility] 2022-02-24 00:00:00 2022-02-24 00:00:00 OFFICE VISIT ESTAB PT LEVEL 4 STLMLC STLMLC [id number] [facility] 2022-01-26 00:00:00 2022-01-26 00:00:00 (TEL) STLMLC STLMLC [id number] [facility] 2022-01-20 00:00:00 2022-01-20 00:00:00 (TEL) STLMLC STLMLC [id number] [facility] 2022-01-20 00:00:00 2022-01-20 00:00:00 (TEL) STLMLC STLMLC [id number] [facility] 2022-01-19 00:00:00 2022-01-19 00:00:00 (TEL) STLMLC STLMLC [id number] [facility] 2022-01-19 00:00:00 2022-01-19 00:00:00 OFFICE VISIT EST PT LEVEL 3 STLMLC STLMLC [id number] [facility] 2021-12-23 00:00:00 2021-12-23 00:00:00 (TEL) STLMLC STLMLC [id number] [facility] 2021-12-23 00:00:00 2021-12-23 00:00:00 (TEL) STLMLC STLMLC [id number] [facility] 2021-12-22 00:00:00 2021-12-22 00:00:00 OFFICE VISIT ESTAB PT LEVEL 4 STLMLC STLMLC [id number] [facility] 2021-12-22 00:00:00 2021-12-22 00:00:00 (TEL) STLMLC STLMLC [id number] [facility] 2021-11-03 00:00:00 2021-11-03 00:00:00 (TEL) STLMLC STLMLC [id number] [facility] 2021-11-02 00:00:00 2021-11-02 00:00:00 (TEL) STLMLC STLMLC [id number] [facility] 2021-09-22 00:00:00 2021-09-22 00:00:00 OFFICE VISIT ESTAB PT LEVEL 4 STLMLC STLMLC [id number] [facility] 2021-08-05 00:00:00 2021-08-05 00:00:00 OFFICE VISIT EST PT LEVEL 3 STLMLC STLMLC [id number] [facility] 2021-08-05 00:00:00 2021-08-05 00:00:00 (TEL) STLMLC STLMLC [id number] [facility] 2021-08-04 11:11:00 2021-08-04 14:06:00 Emergency Armond Moore [facility] 1..840.114 350.1.13.10 4.2.7.2.686 [id number] [facility] 2021-08-04 00:00:00 2021-08-04 00:00:00 (TEL) STLMLC STLMLC [id number] [facility] 2021-08-03 00:00:00 2021-08-03 00:00:00 (TEL) STLMLC STLMLC [id number] [facility] 2021-06-23 00:00:00 2021-06-23 00:00:00 Outpatient STLMLC STLMLC [id number] [facility] 2021-06-08 00:00:00 2021-06-08 00:00:00 Outpatient STLMLC STLMLC [id number] [facility] 2021-06-07 00:00:00 2021-06-07 00:00:00 Outpatient STLMLC STLMLC [id number] [facility] 2021-06-03 00:00:00 2021-06-03 00:00:00 Outpatient STLMLC STLMLC [id number] [facility] 2021-05-31 00:00:00 2021-05-31 00:00:00 Outpatient STLMLC STLMLC [id number] [facility] 2021-05-31 00:00:00 2021-05-31 00:00:00 Outpatient STLMLC STLMLC [id number] [facility] 2021-05-20 12:07:00 2021-05-20 16:13:00 Emergency Trev, Blaine Troy [facility] 1..840.114 350.1.13.10 4.2.7.2.686 [id number] [facility] 2021-05-20 00:00:00 2021-05-20 00:00:00 Orders Only Doctor Unassigned, [place] [facility] 1..840.114 350.1.13.10 4.2.7.2.686 [id number] [facility] 2021-05-20 00:00:00 2021-05-20 00:00:00 Outpatient STLMLC STLMLC [id number] [facility] 2021-03-23 00:00:00 2021-03-23 00:00:00 Outpatient STLMLC STLMLC [id number] [facility] 2021-02-25 00:00:00 2021-02-25 00:00:00 Outpatient STLMLC STLMLC [id number] [facility] 2021-02-22 00:00:00 2021-02-22 00:00:00 Outpatient STLMLC STLMLC [id number] [facility] 2021-02-18 00:00:00 2021-02-18 00:00:00 Outpatient STLMLC STLMLC [id number] [facility] 2021-01-27 00:00:00 2021-01-27 00:00:00 Outpatient STLMLC STLMLC [id number] [facility] 2021-01-27 00:00:00 2021-01-27 00:00:00 Outpatient STLMLC STLMLC [id number] [facility] 2021-01-21 13:11:00 2021-01-21 16:40:00 Emergency Sandee Guillen [facility] 1.2.840.114 350.1.13.10 4.2.7.2.686 [id number] [facility] 2021-01-21 13:11:00 2021-01-21 16:40:00 Emergency X SANDEE GUILLEN [facility] E[facility] [id number] [facility] 2021-01-20 00:00:00 2021-01-20 00:00:00 Outpatient STLMLC STLMLC [id number] [facility] 2021-01-20 00:00:00 2021-01-20 00:00:00 Outpatient STLMLC STLMLC [id number] [facility] 2021-01-11 00:00:00 2021-01-11 00:00:00 Patient Outreach Tim Monae [facility] 1.2.840.114 350.1.13.10 4.2.7.2.686 [id number] [facility] 2020-12-21 00:00:00 2020-12-21 00:00:00 Outpatient STLMLC STLMLC [id number] [facility] 2020-11-12 00:00:00 2020-11-12 00:00:00 Outpatient STLMLC STLMLC [id number] [facility] 2020-11-12 00:00:00 2020-11-12 00:00:00 Outpatient STLMLC STLMLC [id number] [facility] 2020-10-26 00:00:00 2020-10-26 00:00:00 Outpatient STLMLC STLMLC [id number] [facility] 2020-10-20 07:39:00 2020-10-20 09:57:00 Emergency Sergio Aris [facility] 1.2.840.114 350.1.13.10 4.2.7.2.686 [id number] [facility] 2020-10-14 00:00:00 2020-10-14 00:00:00 Outpatient STLMLC STLMLC [id number] [facility] 2020-10-06 00:00:00 2020-10-06 00:00:00 Outpatient STLMLC STLMLC [id number] [facility] 2020-10-01 00:00:00 2020-10-01 00:00:00 Outpatient STLMLC STLMLC [id number] [facility] 2020-09-21 00:00:00 2020-09-21 00:00:00 Outpatient STLMLC STLMLC [id number] [facility] 2020-08-05 00:00:00 2020-08-05 00:00:00 Outpatient STLMLC STLMLC [id number] [facility] 2020-08-04 00:00:00 2020-08-04 00:00:00 Outpatient STLMLC STLMLC [id number] [facility] 2020-07-16 00:00:00 2020-07-16 00:00:00 Letter (Out) Li Hernandez [facility] 1.2.840.114 350.1.13.10 4.2.7.2.686 [id number] [facility] 2020-07-15 16:40:00 2020-07-15 18:23:00 Emergency Clarence Weiss [facility] 1.2.840.114 350.1.13.10 4.2.7.2.686 [id number] [facility] 2020-07-15 00:00:00 2020-07-15 00:00:00 Outpatient STLMLC STLMLC [id number] [facility] 2020-07-15 00:00:00 2020-07-15 00:00:00 Outpatient STLMLC STLMLC [id number] [facility] 2020-07-09 08:20:00 2020-07-09 08:20:[address] [facility] [id number] [facility] 2020-06-23 13:38:00 2020-06-23 13:38:[address] [facility] [id number] [facility] 2020-06-08 16:00:00 2020-06-08 16:00:[address] [facility] [id number] [facility] 2020-06-02 16:31:00 2020-06-02 16:31:[address] [facility] [id number] [facility] 2020-06-02 08:30:00 2020-06-02 08:30:00 [facility] [id number] [facility] 2020-06-01 10:46:00 2020-06-01 10:46:00 Outpatient [facility] [id number] [facility] 2020-04-27 13:00:00 2020-04-27 13:00:00 Out[facility] [place] [facility] [id number] [facility] 2020-03-25 16:45:00 2020-03-25 16:45:00 [facility] [id number] [facility] 2020-02-26 14:15:00 2020-02-26 14:15:00 Outpatient [facility] [id number] [facility] 2020-01-29 00:00:00 2020-01-29 00:00:00 Telephone Adum, Alyssa Muir [address]840.114 350.1.13.10 4.2.7.2.686 [id number] 134 [id number] [facility] 2020-01-29 00:00:00 2020-01-29 00:00:00 Refill Doctor Unassigned, [place] [address]840.114 350.1.13.10 4.2.7.2.686 [id number] 134 [id number] [facility] 2020-01-29 00:00:00 2020-01-29 00:00:00 Patient Secure Msg Doctor Unassigned, [place] [address]840.114 350.1.13.10 4.2.7.2.686 [id number] 134 [id number] [facility] 2020-01-29 00:00:00 2020-01-29 00:00:00 Patient Secure Msg Doctor Unassigned, [place] [facility] [place] [facility] 1.2.840.114 350.1.13.10 4.2.7.2.686 [id number] [facility] 2020-01-29 00:00:00 2020-01-29 00:00:00 Patient Secure Msg Doctor Unassigned, [place] [facility] 1.2.840.114 350.1.13.10 4.2.7.2.686 [id number] [facility] 2020-01-29 00:00:00 2020-01-29 00:00:00 Patient Secure Msg Doctor Unassigned, [place] [facility] 1.2.840.114 350.1.13.10 4.2.7.2.686 [id number] [facility] 2020-01-17 08:20:35 2020-01-17 16:41:15 Telemedici ne Visit Jhon Sondra [facility] 1.2.840.114 350.1.13.10 4.2.7.2.686 [id number] [facility] 2020-01-17 13:15:00 2020-01-17 13:15:00 Outpatient R SONDRA CHAVIRA [facility] [id number] [facility] 2020-01-17 00:00:00 2020-01-17 00:00:00 Telephone Jhon Sondra [facility] 1.2.840.114 350.1.13.10 4.2.7.2.686 [id number] [facility] 2020-01-07 00:00:00 2020-01-07 00:00:00 Telephone Jhon Sondra [facility] 1.2.840.114 350.1.13.10 4.2.7.2.686 [id number] [facility] 2020-01-06 00:00:00 2020-01-06 00:00:00 Telephone JhonSondra [facility] Professio nal Building 1.2.840.114 350.1.13.10 4.2.7.2.686 [id number] [facility] 2020-01-03 08:46:00 2020-01-03 15:02:00 Hospital Encounter Sondra Chavira [facility] 1.2.840.114 350.1.13.10 4.2.7.2.686 [id number] [facility] 2019-11-29 15:59:09 2020-01-03 14:53:01 Office Visit Sondra Chavira [facility] Building 1.2.840.114 350.1.13.10 4.2.7.2.686 [id number] [facility] 2020-01-03 00:00:00 2020-01-03 00:00:00 Orders Only Doctor Unassigned, [place] [facility] 1.2.840.114 350.1.13.10 4.2.7.2.686 [id number] [facility] 2019-12-30 00:00:00 2019-12-30 00:00:00 Telephone [facility] Building 1.2.840.114 350.1.13.10 4.2.7.2.686 [id number] [facility] 2019-12-27 16:00:00 2019-12-27 16:00:00 Outpatient R SONDRA CHAVIRA [facility] [id number] [facility] 2019-12-10 00:00:00 2019-12-10 00:00:00 Case Management Sondra Chavira [facility] 1.2.840.114 350.1.13.10 4.2.7.2.686 [id number] 134 [id number] [facility] 2019-12-05 00:00:00 2019-12-05 00:00:00 Telephone Sondra Chavira [facility] 1.2.840.114 350.1.13.10 4.2.7.2.686 [id number] 134 [id number] [facility] 2019-12-02 00:00:00 2019-12-02 00:00:00 Prep For Surgery Carmen Kenneyd [facility] 1.2.840.114 350.1.13.10 4.2.7.2.686 [id number] 134 [id number] [facility] 2019-12-02 00:00:00 2019-12-02 00:00:00 Telephone Sondra Chavira [facility] 1.2.840.114 350.1.13.10 4.2.7.2.686 [id number] 134 [id number] [facility] 2019-12-01 00:00:00 2019-12-01 00:00:00 Case Management Sondra Chavira [facility] 1.2.840.114 350.1.13.10 4.2.7.2.686 [id number] 134 [id number] [facility] 2019-11-29 16:00:00 2019-11-29 17:56:19 Outpatient R JHONSONDRA JHONSONDRA [facility] [id number] [facility] 2019-11-29 00:00:00 2019-11-29 00:00:00 Orders Only Doctor Unassigned, [place] [facility] 1.2.840.114 350.1.13.10 4.2.7.2.686 [id number] [facility] 2019-11-19 00:00:00 2019-11-19 00:00:00 Telephone Sondra [facility]avira [facility] [place] [facility] 1.2.840.114 350.1.13.10 4.2.7.2.686 [id number] 134 [id number] [facility] 2019-11-18 00:00:00 2019-11-18 00:00:00 Telephone [facility] 1.2.840.114 350.1.13.10 4.2.7.2.686 [id number] 134 [id number] [facility] 2019-11-15 17:30:16 2019-11-15 17:45:16 Cleaners Visit Pob, Ad[facility] Lab Main [facility]ondra Chavira [facility] [place] [facility] 1.2.840.114 350.1.13.10 4.2.7.2.686 [id number] 353 [id number] [facility] 2019-11-15 16:00:41 2019-11-15 17:19:59 Office Visit [facility] 1.2.840.114 350.1.13.10 4.2.7.2.686 [id number] 134 [id number] [facility] 2019-11-15 00:00:00 2019-11-15 00:00:00 Orders Only Doctor Unassigned, [place] [facility] [facility] [id number] 350.1.13.10 [id number] [id number] [facility] 2019-11-12 00:00:00 2019-11-12 00:00:00 Telephone Sondra Chavira [facility] [id number] 350.1.13.10 [id number] [id number] [facility] 2019-09-24 08:45:00 2019-09-24 08:45:00 [facility] Medicine [facility] [id number] [facility] 2019-08-13 09:15:00 2019-08-13 09:15:00 [facility] [id number] [facility] 2019-07-24 15:00:00 2019-07-24 15:00:00 [facility] [id number] [facility] 2019-07-08 10:56:00 2019-07-08 10:56:00 [facility] [id number] [facility] 2019-06-11 10:15:00 2019-06-11 10:15:00 [facility] [id number] [facility] 2019-06-07 09:59:31 2019-06-07 10:24:10 Nurse Visit Nurse, [facility] Sondra Chavira [facility] [id number] 350.1.13.10 4.2.7.2.686 [id number] [facility] 2019-04-30 13:30:00 2019-04-30 13:30:00 Outpatient [facility] [id number] [facility] Results Test Description Test Time Test Comments Results Result Co mments Source [facility] [id number] 21:36:00Aris Hill MD ? ? 06/08/2024 ?7:50 [...] of separately billable procedures and treating other patients.[facility] W/AUTO [id number] 00:00:00* Test Item Value Reference Range Interpretation Comme nts NUCLEATED RBCS (test code = 74332-9) 0.0 /100 WBC'S See_Comment [Automated messa ge] The system which generated this result transmitted reference range: 0.0 /100 WBC'S. The reference range was not used to interpret this result as normal/abnormal. ABSOLUTE EOSINOPHILS (test code = 87059-6) 0.23 K/UL See_Comment [Automated messa ge] The system which generated this result transmitted reference range: 0.00-0.50 K/UL. The reference range was not used to interpret this result as normal/abnormal. ABSOLUTE LYMPHOCYTES (test code = 02177-6) 3.50 K/UL See_Comment [Automated messa ge] The system which generated this result transmitted reference range: 1.00-4.00 K/UL. The reference range was not used to interpret this result as normal/abnormal. ABSOLUTE MONOCYTES (test code = 83296-8) 0.45 K/UL See_Comment [Automated messa ge] The system which generated this result transmitted reference range: 0.20-1.00 K/UL. The reference range was not used to interpret this result as normal/abnormal. ABSOLUTE NEUTROPHILS (test code = 75644-2) 5.34 K/UL See_Comment [Automated messa ge] The system which generated this result transmitted reference range: 1.50-7.50 K/UL. The reference range was not used to interpret this result as normal/abnormal. BASOPHILS (test code = 68531-8) 0.7 % EOSINOPHILS (test code = 08393-0) 2.4 % HEMATOCRIT (test code = 65792-7) 34.3 % See_Comment [Automated messa ge] The [...] result as normal/abnormal. LYMPHOCYTES (test code = 48400-5) 36.4 % MCH (test code = 66160-2) 30.4 PG See_Comment [Automated messa ge] The system which generated this result transmitted reference range: 25.0-33.0 PG. The reference range was not used to interpret this result as normal/abnormal. MCHC (test code = 76340-9) 32.9 G/DL See_Comment [Automated messa ge] The system which generated this result transmitted reference range: 31.0-36.0 G/DL. The reference range was not used to interpret this result as normal/abnormal. MCV (test code = 73780-9) 92.2 fL See_Comment [Automated messa ge] The system which generated this result transmitted reference range: 80.0-99.0 fL. The reference range was not used to interpret this result as normal/abnormal. MONOCYTES (test code = 57405-7) 4.7 % NEUTROPHILS (test code = 04906-5) 55.5 % PLATELET COUNT (test code = 53998-0) 344 K/UL See_Comment [Automated messa ge] The system which generated this result transmitted reference range: 130-400 K/UL. The reference range was not used to interpret this result as normal/abnormal. RBC (test code = 38790-6) 3.72 M/UL See_Comment L [Automated messa ge] The system which generated this result transmitted reference range: 3.80-5.40 M/UL. The reference range was not used to interpret this result as normal/abnormal. RDW (test code = 82897-0) 11.8 % See_Comment [Automated messa ge] The system which generated this result transmitted reference range: 11.5-15.0 %. The reference range was not used to interpret this result as normal/abnormal. WBC (test code = 94754-7) 9.6 K/UL See_Comment [Automated messa ge] The system which generated this result transmitted reference range: 3.5-11.0 K/UL. The reference range was not used to interpret this result as normal/abnormal. STREP A [id number] 00:00:00ResultCOMP. METABOLIC PANEL (15262)2021-08-04 17:13:25* Test Item Value Reference Range Interpretation Comme nts NA (test code = 5642558134) 139 mmol/L 135-145 K (test code = 0521319292) 4.2 mmol/L 3.5-5.0 CL (test code = 3404705844) 109 mmol/L 98-108 H CO2 TOTAL (test code = 2950279207) 20 mmol/L 23-31 L AGAP (test code = 9701516632) 2-16 BUN (test code = 1118169284) 10 mg/dL 7-23 GLUCOSE (test code = 2807438940) 100 mg/dL 70-110 CREATININE (test code = 1567189821) 0.57 mg/dL 0.50-1.04 TOTAL BILI (test code = 7207206250) 0.4 mg/dL 0.1-1.1 CALCIUM (test code = 1603822246) 9.4 mg/dL 8.6-10.6 T PROTEIN (test code = 4456807480) 7.2 g/dL 6.3-8.2 ALBUMIN (test code = 5628289727) 4.5 g/dL 3.5-5.0 ALK PHOS (test code = 6939036937) 76 U/L 34-122 ALTv (test code = 1742-6) 22 U/L 5-35 AST(SGOT) (test code = 4625704154) 26 U/L 13-40 eGFR (test code = 4635595027) mL/min/1.73m2 NAHUM (test code = NAHUM) Association [...] imaging tests). Lab Interpretation (test code = 53762-8) [facility]normal [facility] 17:12:44* Test Item Value Reference Range Interpretation Comme nts LIPASE (test code = 2965271867) 74 U/L 0-220 Lab Interpretation (test cod e = 35267-0) Normal [facility] Center[facility] WITH [id number] 17:00:06* Test Item Value Reference Range Interpretation Comme nts WBC (test code = 6690-2) See_Comment [Automated Walk-in] The system which generated this result transmitted [...] 32.5 g/dL 31.6-35.1 RDW-SD (test code = 01440-5) 41.0 fL 39.0-49.9 RDW-CV (test code = 788-0) 12.2 % 12.0-15.5 PLT (test code = 777-3) See_Comment H [Automated [employer]] The system which generated this result transmitted reference range: 166 - 358 10*3/?L. The reference range was not used to interpret this result as normal/abnormal. MPV (test code = 78745-1) 10.0 fL 9.5-12.9 NRBC/100 WBC (test code = 9708489478) See_Comment [Automated [employer] ssage] The system which generated this result transmitted reference range: 0.0 - 10.0 /100 WBCs. The reference range was not used to interpret this result as normal/abnormal. NRBC x10^3 (test code = 0410728473) <0.01 See_Comment [Automated [employer] ge] The system which generated this result transmitted reference range: 10*3/?L. The reference range was not used to interpret this result as normal/abnormal. GRAN MAT (NEUT) % (test code = 770-8) 57.4 % IMM GRAN % (test code = 4806201074) 0.30 % LYMPH % (test code = 736-9) 34.0 % MONO % (test code = 5905-5) 5.5 % EOS % (test code = 713-8) 1.9 % BASO % (test code = 706-2) 0.9 % GRAN MAT x10^3(ANC) (test code = 6530289487) 6.05 10*3/uL 1.88-7.09 IMM GRAN x10^3 (test code = 5903926584) 0.03 10*3/uL 0.00-0.06 LYMPH x10^3 (test code = 731-0) 3.59 10*3/uL 1.32-3.29 H MONO x10^3 (test code = 742-7) 0.58 10*3/uL 0.33-0.92 EOS x10^3 (test code = 711-2) 0.20 10*3/uL 0.03-0.39 BASO x10^3 (test code = 704-7) 0.10 10*3/uL 0.01-0.07 H Lab Interpretation (test code = 72176-6) Abnormal [facility] CenterCT KNEE RIGHT WO [id number] 19:58:17No evidence of fracture or traumatic malalignment. [...] traumatic malalignment.No joint effusion.RL: 4400End of report [facility] KNEE 3 VW [id number] 17:44:46Questionable lateral tibial plateau fracture with knee [...] characterized with a CT scan of the knee.Osteoarthrosis.[facility] CenterUrinalysis 2021-01-21 21:26:51* Test Item Value Reference Range Interpretation Comme nts APPEARANCE (test code = 9958707114) Hazy Clear A COLOR (test code = 9800014005) Yellow Yellow PH (test code = 4146722841) 4.8-8.0 SP GRAVITY (test code = 8626878461) 1.003-1.030 GLU U QUAL (test code = 2704528123) Normal Normal BLOOD (test code = 3989464140) 2+ Negative A KETONES (test code = 4985600858) 5 mg/dL Negative A PROTEIN (test code = 2887-8) Negative Negative UROBILIN (test code = 6641869289) Normal Normal BILIRUBIN (test code = 6757132278) Negative Negative NITRITE (test code = 1508061926) Negative Negative LEUK CHRIS (test code = 3985266617) Negative Negative RBC/HPF (test code = 8325919158) See_Comment H [Automated [employer] ge] The system which generated this result transmitted reference range: 0 - 3 HPF. The reference range was not used to interpret this result as normal/abnormal. WBC/HPF (test code = 0361257242) See_Comment [Automated [employer] ge] The system which generated this result transmitted reference range: 0 - 5 HPF. The reference range was not used to interpret this result as normal/abnormal. BACTERIA (test code = 1520196159) Few Negative A MUCOUS (test code = 8956641664) Moderate Negative LPF A SQ EPITH (test code = 0211595130) HPF Lab Interpretation (test code = 28435-7) Abnormal [facility] Metabolic Panel (NA, K, CL, CO2, GLUCOSE, BUN, CREATININE, CA)2021-01-21 20:06:25* Test Item Value Reference Range Interpretation Comme nts NA (test code = 6623536817) 139 mmol/L 135-145 K (test code = 1847000625) 3.9 mmol/L 3.5-5.0 CL (test code = 4737345077) 105 mmol/L 98-108 CO2 TOTAL (test code = 7071509995) 25 mmol/L 23-31 AGAP (test code = 1245894875) 2-16 BUN (test code = 3070620291) 14 mg/dL 7-23 GLUCOSE (test code = 9992821795) 96 mg/dL 70-110 CREATININE (test code = 5918777361) 0.69 mg/dL 0.50-1.04 CALCIUM (test code = 6604790928) 9.4 mg/dL 8.6-10.6 eGFR (test code = 7099830618) mL/min/1.73m2 NAHUM (test code = NAHUM) Association [...] or urine or abnormalities in imaging tests). [facility] with Elcnfddyaand0269-48-07 19:53:28* Test Item Value Reference Range Interpretation Comme nts WBC (test code = 6690-2) See_Comment H [Automated Walk-in] The system which generated this result transmitted reference range: 4.30 - 11.10 10*3/?L. The reference range was not used to interpret this result as normal/abnormal. RBC (test code = 789-8) See_Comment [[employer]] The system which generated this result transmitted [...] 33.2 g/dL 31.6-35.1 RDW-SD (test code = 76021-5) 39.5 fL 39.0-49.9 RDW-CV (test code = 788-0) 12.1 % 12.0-15.5 PLT (test code = 777-3) See_Comment H [Automated messa ge] The system which generated this result transmitted reference range: 166 - 358 10*3/?L. The reference range was not used to interpret this result as normal/abnormal. MPV (test code = 27286-2) 9.3 fL 9.5-12.9 L NRBC/100 WBC (test code = 1421121318) See_Comment [Automated [employer] ssage] The system which generated this result transmitted reference range: 0.0 - 10.0 /100 WBCs. The reference range was not used to interpret this result as normal/abnormal. NRBC x10^3 (test code = 2537622724) <0.01 See_Comment [Automated messa ge] The system which generated this result transmitted reference range: 10*3/?L. The reference range was not used to interpret this result as normal/abnormal. GRAN MAT (NEUT) % (test code = 770-8) 80.9 % IMM GRAN % (test code = 7868937579) 0.30 % LYMPH % (test code = 736-9) 10.6 % MONO % (test code = 5905-5) 6.5 % EOS % (test code = 713-8) 0.9 % BASO % (test code = 706-2) 0.8 % GRAN MAT x10^3(ANC) (test code = 7019767861) 9.40 10*3/uL 1.88-7.09 H IMM GRAN x10^3 (test code = 7752834620) 0.04 10*3/uL 0.00-0.06 LYMPH x10^3 (test code = 731-0) 1.23 10*3/uL 1.32-3.29 L MONO x10^3 (test code = 742-7) 0.76 10*3/uL 0.33-0.92 EOS x10^3 (test code = 711-2) 0.11 10*3/uL 0.03-0.39 BASO x10^3 (test code = 704-7) 0.09 10*3/uL 0.01-0.07 H Lab Interpretation (test code = 03701-7) Abnormal [facility] Center[facility]OVID[facility] (ID NOW RAPID TESTING)2021-01-21 19:10:38* Test Item Value Reference Range Interpretation Comme nts SARS-CoV-2 Rapid ID NOW (test code = 07265-0) Not Detected Not Detected NAHUM (test code = NAHUM) ID NOW COVID-19 As say is an isothermal nucleic acid amplification test intended for the qualitative detection of nucleic acid from SARS-CoV-2 viral RNA in nasopharyngeal (COOK VACUUM KETTLE) specimens. It is used under Emergency Use [...] clinically indicated. Lab Interpretation (test code = 60135-5) Normal [facility] CenterXR CHEST 1 [id number] 18:35:43HISTORY: Cough and SOB. FINDINGS: ?AP view [...] of mid right claviclenoted.CONCLUSIONS: No acute cardiopulmonary disease.[facility] CenterCT ANGIOGRAM [id number] 15:41:05Normal CT neckCT ANGIOGRAM NECK HISTORY: Female [...] their subclavian originsthrough the vertebrobasilar junction. [facility], Radiant Results Inft User - [...] subclavian originsthrough the vertebro basilar junction.IMPRESSIONNormal CT neckUnFormerly [facility] HospitalaPTT 2020-10-20 15:07:00* Test Item Value Reference Range Interpretation Comme [facility] APTT Patient (test code = 3173-2) See_Comment [Automated message] The system which generated this result transmitted reference range: 23 - 38 Seconds. The reference range was not used to interpret this result as normal/abnormal. NAHUM (test code = NAHUM) The [facility] patient population mean normal value for aPTT is 30 seconds. Lab Interpretation (test code = 77580-3) Normal [facility] CenterProthrombin Time (PT) / [id number] 15:05:00 * Test Item Value Reference Range Interpretation Comme [facility] PROTIME PATIENT (test code = 5964-2) See_Comment [Automated messa ge] The system which generated this result transmitted reference range: 12.0 - 14.7 Seconds. The reference range was not used to interpret this result as normal/abnormal. INR (test code = 6301-6) Normal INR <1.1; Warfarin Therapeutic range 2.0 to 3.0 or 2.5 to 3.5, depending upon the indications. Lab Interpretation (test code = 32694-8) Normal [facility] CenterBasi Metabolic Panel (NA, K, CL, CO2, GLUCOSE, BUN, CREATININE, CA)2020-10-20 14:21:00* Test Item Value Reference Range Interpretation Comme [facility] NA (test code = 8127714645) 140 mmol/L 135-145 K (test code = 2012788157) 3.8 mmol/L 3.5-5 CL (test code = 0733839742) 106 mmol/L 98-108 CO2 TOTAL (test code = 8421534455) 25 mmol/L 23-31 AGAP (test code = 9603421070) 2-16 BUN (test code = 4954896340) 15 mg/dL 7-23 GLUCOSE (test code = 3341774912) 108 mg/dL 70-110 CREATININE (test code = 0603009853) 0.65 mg/dL 0.5-1.04 CALCIUM (test code = 3743332417) 9.2 mg/dL 8.6-10.6 eGFR Calculation (Non-) (test code = 0654305512) mL/min/1.73m2 eGFR Calculation () (test code = 8174838108) mL/min/1.73m2 NAHUM (test code = NAHUM) Association [...] or urine or abnormalities in imaging tests). [facility] CenterHepatic Function Panel (ALB, T.PRO, BILI T, BU/BC, ALT, AST, ALK PHOS)2020-10-20 14:20:00* Test Item Value Reference Range Interpretation Comme nts TOTAL BILI (test code = 6154968811) 0.4 mg/dL 0.1-1.1 BILI UNCON (test code = 8034350852) 0.3 mg/dL 0.1-1.1 BILI CONJ (test code = 8845264361) 0.0 mg/dL 0-0.3 T PROTEIN (test code = 9465659565) 7.3 g/dL 6.3-8.2 ALBUMIN (test code = 1168372563) 4.2 g/dL 3.5-5 ALK PHOS (test code = 8587972185) 96 U/L 34-122 ALTv (test code = 1742-6) 21 U/L 5-35 AST(SGOT) (test code = 9600816153) 23 U/L 13-40 Lab Interpretation (test cod e = 15931-1) Normal [facility] with Cxrmaazqqmnh7836-53-78 14:08:00* Test Item Value Reference Range Interpretation Comme nts WBC (test code = 6690-2) See_Comment [Automated [employer]] The system which generated this result transmitted reference range: 4.30 - 11.10 10*3/?L. The reference range was not used to interpret this result as normal/abnormal. RBC (test code = 789-8) See_Comment [Automated [employer]] The system which generated this result transmitted [...] 31.9 g/dL 31.6-35.1 RDW-SD (test code = 48543-2) 41.2 fL 39-49.9 RDW-CV (test code = 788-0) 12.3 % 12-15.5 PLT (test code = 777-3) See_Comment H [Automated messa ge] The system which generated this result transmitted reference range: 166 - 358 10*3/?L. The reference range was not used to interpret this result as normal/abnormal. MPV (test code = 33789-5) 9.2 fL 9.5-12.9 L NRBC/100 WBC (test code = 4985162980) See_Comment [Automated me ssage] The system which generated this result transmitted reference range: 0.0 - 10.0 /100 WBCs. The reference range was not used to interpret this result as normal/abnormal. NRBC x10^3 (test code = 2343813571) <0.01 See_Comment [Automated messa ge] The system which generated this result transmitted reference range: 10*3/?L. The reference range was not used to interpret this result as normal/abnormal. GRAN MAT (NEUT) % (test code = 770-8) 51.8 % IMM GRAN % (test code = 3758187830) 0.30 % LYMPH % (test code = 736-9) 36.1 % MONO % (test code = 5905-5) 7.0 % EOS % (test code = 713-8) 3.8 % BASO % (test code = 706-2) 1.0 % GRAN MAT x10^3(ANC) (test code = 1443411000) 4.85 10*3/uL 1.88-7.09 IMM GRAN x10^3 (test code = 4164707438) 0.03 10*3/uL 0-0.06 LYMPH x10^3 (test code = 731-0) 3.39 10*3/uL 1.32-3.29 H MONO x10^3 (test code = 742-7) 0.66 10*3/uL 0.33-0.92 EOS x10^3 (test code = 711-2) 0.36 10*3/uL 0.03-0.39 BASO x10^3 (test code = 704-7) 0.09 10*3/uL 0.01-0.07 H Lab Interpretation (test code = 59855-4) Abnormal [facility] CenterPOCT [id number] 14:00:00* Test Item Value Reference Range Interpretation Comme nts POCT PREG (test code = 1605) negative On board controls acceptable with C Line (test code = 3574) present POCT PREG LOT # (test code = 3575) [id number] POCT PREG TEST DATE ( test code = 3576) 2022-02-19 Lab Interpretation (test cod e = 25091-3) Normal [facility] CenterRAPID STREP SCREEN FOR GROUP [id number] 22:32:00* Test Item Value Reference Range Interpretation Comme nts Streptococcus pyogenes (grou p A) antigen (test code = 86358-3) Negative Negative Lab Interpretation (test cod e = 48142-4) Normal [facility] CenterType and Screen - The Type [...] code = 20) A Positive Performed at [facility] Laboratory [facility] Blood [address] [place] [address] Free: [phone] No. [id number] IAT (test code = 1185) Negative Performed at [facility] Blood [place] [address]Toll Free: [phone] No. [id number] [facility] CenterBASI METABOLIC PANEL (NA, K, CL, CO2, GLUCOSE, BUN, CREATININE, CA)2020-01-03 15:12:00* Test Item Value Reference Range Interpretation Comme nts NA (test code = 0712674123) 140 mmol/L 135-145 K (test code = 4523171369) 3.8 mmol/L 3.5-5 CL (test code = 9108637020) 111 mmol/L 98-108 H CO2 TOTAL (test code = 4486533873) 22 mmol/L 23-31 L AGAP (test code = 9599078658) 2-16 BUN (test code = 7279864003) 15 mg/dL 7-23 GLUCOSE (test code = 8168288826) 110 mg/dL 70-110 CREATININE (test code = 4071774619) 0.60 mg/dL 0.5-1.04 CALCIUM (test code = 6286883614) 8.8 mg/dL 8.6-10.6 eGFR Calculation (Non-) (test code = 7935958251) mL/min/1.73m2 eGFR Calculation () (test code = 0895306097) mL/min/1.73m2 NAHUM (test code = NAHUM) Association [...] imaging tests). Lab Interpretation (test code = 56392-4) Abnormal [facility] WITH JDOSEBOXSTAH2733-78-81 14:41:00* Test Item Value Reference Range Interpretation [...] 33.1 g/dL 31.6-35.1 RDW-SD (test code = 56404-3) 39.9 fL 39-49.9 RDW-CV (test code = 788-0) 12.1 % 12-15.5 PLT (test code = 777-3) See_Comment [Automated messa ge] The system which generated this result transmitted reference range: 166 - 358 10*3/?L. The reference range was not used to interpret this result as normal/abnormal. MPV (test code = 71431-5) 9.2 fL 9.5-12.9 L NRBC/100 WBC (test code = 8172781945) See_Comment [Automated [employer] ssage] The system which generated this result transmitted reference range: 0.0 - 10.0 /100 WBCs. The reference range was not used to interpret this result as normal/abnormal. NRBC x10^3 (test code = 1046209911) <0.01 See_Comment [Automated messa ge] The system which generated this result transmitted reference range: 10*3/?L. The reference range was not used to interpret this result as normal/abnormal. GRAN MAT (NEUT) % (test code = 770-8) 58.5 % IMM GRAN % (test code = 4280754469) 0.30 % LYMPH % (test code = 736-9) 30.8 % MONO % (test code = 5905-5) 6.3 % EOS % (test code = 713-8) 3.1 % BASO % (test code = 706-2) 1.0 % GRAN MAT x10^3(ANC) (test code = 2860550905) 5.54 10*3/uL 1.88-7.09 IMM GRAN x10^3 (test code = 4782769800) 0.03 10*3/uL 0-0.06 LYMPH x10^3 (test code = 731-0) 2.92 10*3/uL 1.32-3.29 MONO x10^3 (test code = 742-7) 0.60 10*3/uL 0.33-0.92 EOS x10^3 (test code = 711-2) 0.29 10*3/uL 0.03-0.39 BASO x10^3 (test code = 704-7) 0.09 10*3/uL 0.01-0.07 H Lab Interpretation (test code = 76182-3) Abnormal [facility] [id number] 14:03:00* Test Item Value Reference Range Interpretation Comme nts POCT PREG (test code = 1605) Negative On board controls acceptable with C Line (test code = 3574) Yes POCT PREG LOT # (test code = 3575) POCT PREG TEST DATE ( test code = 3576) Lab Interpretation (test cod e = 16511-6) Normal [facility] [id number] 22:54:00* Test Item Value Reference Range Interpretation Comme nts POCT PREG (test code = 1605) Negative On board controls acceptable with C Line (test code = 3574) Yes POCT PREG LOT # (test code = 3575) POCT PREG TEST DATE ( test code = 3576) [facility] [id number] 22:54:00* Test Item Value Reference Range Interpretation Comme nts POCT PREG (test code = 1605) Negative On board controls acceptable with C Line (test code = 3574) Yes POCT PREG LOT # (test code = 3575) POCT PREG TEST DATE ( test code = 3576) [facility] CenterP[facility], COVID 19 Antigen + Flu by SofMeasyPOyetu, COVID 19 Antigen + Flu by Evette [...] of comfort: N/A Code Status: Full [place] [employer] was verified Disposition: Admit to OBS [facility] 2024-06-07 22:34:44 [facility] Hospitalist Admission H&P Date of Service: 06/07/2024 [...] N/A 01/03/2020 Surgeon: Sondra Chavira MD; Location: [facility] OR [facility] LAP W/TOT HYSTERECT <250GM W/TUBE/OVARY 01/03/2020 LAPAROSCOPIC TOTAL ABDOMINAL HYSTERECTOMY N/A 01/03/2020 Surgeon: Sondra Chavira MD; Location: [facility] OR [facility] REMOVAL OF FALLOPIAN TUBE 01/03/2020 SALPINGECTOMY Bilateral 01/03/2020 Surgeon: Sondra Chavira MD; Location: [facility] OR [facility] TUBAL LIGATION ALLERGIES Allergies Allergen Reactions [...] user?: NO Patient will require observation [place] [employer] was verified during stay Natacha Mesa MD IM-INTERNAL MEDICINE STAFF [facility] - Health Notes Date/Time Note Provider Source 2024-06-18 12:00:50 TRANSITIONAL CARE MANAGEMENT ASSESSMENT 06/18/2024 Gerard Leung [id number] Gerard Leung is a 39 year old /White female was admitted on 06/13/24 to [facility], ADC MED SURG. She was discharged on 06/14/24 with discharge disposition of HR- Routine Discharge. Admitting Physician: Michelle Toney Discharge Diagnosis: Allergic reaction, unclear etiology No linked episodes TCM Aqx-zbya-gf-face outreach documentation: Care Transition CM made f/u call to pt post-discharge x2. No response and call went to voicemail. CM left a discreet message with purpose of call and CM's call back information. Discharge Assessment Chart Assessed: 06/18/24 TCM Outreach Completed: 06/18/24 Future Appointments: Yoli Rhodes RN [facility] 2024-06-17 16:34:36 Care Transition CM made f/u call to pt post-discharge. No response and call went to voicemail. CM left a discreet message with purpose of call and CM's call back information. Yoli Rhodes RN, BSN Propulsion Systems Engineer-Transitions of Care [phone] [facility] 2024-06-14 15:20:52 Patient now agreeable to discharge. Work note provided per request. Patient still not happy with care, but does not want to wait longer for the doctor would like to leave now. Lenard Gupta RN [facility] 2024-06-14 14:22:25 COA and COOK VACUUM KETTLE at bedside at this time. [facility] 2024-06-14 14:16:16 Problem: Pain Goal: Control of [...] Lenard Gupta RN Outcome: Progressing as expected [facility] [employer] 2024-06-14 14:05:04 Patient not agreeable to discharge. [...] staff. COA notified. To visit with patient. [facility] [employer] 2024-06-14 12:32:19 Problem: Pain Goal: Control of [...] work of breathing Outcome: Progressing as expected [facility] 2024-06-14 06:08:50 Problem: Pain Goal: Control of [...] of breathing Outcome: Progressing as expected [facility] Marycruz Rudd RN [facility] 2024-06-13 17:06:19 Problem: Pain Goal: Control of [...] work of breathing Outcome: Progressing as expected [facility] 2024-06-13 13:20:25 Summary: Admit Patient admitted to [facility] for diagnosis of allergic reaction Patient agrees to admission, discussed plan of care with patient and family. Patient is awake, alert, oriented, resp reg unlabored, color appropriate for race, PIV intact No adverse reaction to medications administered while in ED Belongings with patient to unit Report to Daphney Guido Shelly Soliman RN [facility] 2024-06-13 07:27:48 Patient is anxious and reports while at work she became short of breath. Reports she had a wasp sting last and she was admitted to the ICU and discharged on Monday. Reports her voice does not sound normal. 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 treatment comments: [facility] ED Events Date/Time Event User Comments [...] N/A 01/03/2020 Surgeon: Sondra Chavira MD; Location: [facility] OR [facility] LAP W/TOT HYSTERECT <250GM W/TUBE/OVARY 01/03/2020 LAPAROSCOPIC TOTAL ABDOMINAL HYSTERECTOMY N/A 01/03/2020 Surgeon: Sondra Chavira MD; Location: [facility] OR Location REMOVAL OF FALLOPIAN TUBE 01/03/2020 SALPINGECTOMY Bilateral 01/03/2020 Surgeon: Sondra Chavira MD; Location: [facility] OR Location TUBAL LIGATION Medications Medications [...] (1,000 mL IV Infusion New Bag 06/13/24 9421) Allergies Allergies Allergen Reactions Zoloft [Sertraline] Unknown [...] - Observation Condition -- Comment Treatment Team: [facility] [[id number]] Current Discharge Medication List STOP taking these [...] - Observation Condition -- Comment Treatment Team: [facility] [[id number]] Current Discharge Medication List STOP taking these medications diphenhydrAMINE 50 mg capsule Comments: Reason for Stopping: HYDROcodone-acetaminophen 5-325 mg tablet Comments: Reason for Stopping: ondansetron 4 mg disintegrating tablet Comments: Reason for Stopping: diazePAM 2 mg tablet Comments: Reason for Stopping: OMEPRAZOLE ORAL Comments: Reason for Stopping: [employer] is used frequently and may produce errors. Promptly contact for obvious discrepancies. Breanna Meza MD, FACEP, FAAEM Software Configuration Analyst of Emergency and Internal Medicine [facility] #[id number] Breanna Meza MD 06/13/24 1554 [employer] EMERGENCY PHYSICIAN STAFF [facility] 2024-06-11 17:11:33 TRANSITIONAL CARE MANAGEMENT ASSESSMENT 06/11/2024 Gerard Leung [id number] Gerard Leung is a 39 year old /White female was admitted on 06/07/24 to [facility] ICU. She was discharged on 06/08/24 with discharge disposition of HR- Routine Discharge. Admitting Physician: Michelle Toney Discharge Diagnosis: Wasp sting, accidental or unintentional, initial encounter No linked episodes TCM [id number]-[id number]-ec-[id number] outreach documentation: Discharge Assessment Chart Assessed: 06/11/24 [...] time?: No Future Appointments: Yoli Rhodes RN [facility] 2024-06-10 13:47:46 Care Transition CM made f/u call to pt post-discharge. No response and call went to voicemail. CM left a discreet message with purpose of call and CM's call back information. Yoli Rhodes RN, BSN Propulsion Systems Engineer-Transitions of Care [phone] [facility] 2024-06-08 16:30:46 Problem: Discharge Planning Goal: Adequate [...] Outcome: Adequate for discharge Dimple Lopes RN [facility] 2024-06-08 09:08:23 Problem: Discharge Planning Goal: Adequate [...] Goal: Hemodynamically stable Outcome: Progressing as expected [facility] 2024-06-07 21:51:27 Problem: Discharge Planning Goal: Adequate [...] Goal: Hemodynamically stable Outcome: Progressing as expected [facility] 2024-06-07 20:36:25 Patient admitted to 2109 for diagnosis of Wasp Sting, accidental or unintentional. Patient agrees to admission, discussed plan of care with patient and family. Patient is awake, A&Ox4, RR even and unlabored on RA. Color appropriate for race. PIV intact x2. No adverse reaction to medications administered while in ED. Belongings with patient to unit. Beth Platt RN [facility] 2024-06-07 19:50:01 Nurse Report Report given to DAPHNEY Mcmanus. Chief complaint, assessment findings, infusion verify and orders reviewed. [facility] 2024-06-07 16:40:54 Pt came in via private auto, due to wasp sting yesterday 0830pm, redness on the upper arm to the elbow, feels like her throat is closing, and an elephant sitting on her chest, she denies any pmhx, itchy all over also, Dr. Hill assessing in the room. Cecily Schmidt RN [facility] 2024-06-07 16:36:00 Images from the original note were not included. EMERGENCY DEPARTMENT ENCOUNTER [facility] Patient Name: Gerard Leung Date of : [...] N/A 01/03/2020 Surgeon: Sondra Chavira MD; Location: [facility] OR [facility] LAP W/TOT HYSTERECT <250GM W/TUBE/OVARY 01/03/2020 LAPAROSCOPIC TOTAL ABDOMINAL HYSTERECTOMY N/A 01/03/2020 Surgeon: Sondra Chavira MD; Location: [facility] OR [facility] REMOVAL OF FALLOPIAN TUBE 01/03/2020 SALPINGECTOMY Bilateral 01/03/2020 Surgeon: Sondra Chavira MD; Location: [facility] OR [facility] TUBAL LIGATION Allergies Allergies Allergen Reactions [...] 0.01 - 0.07 10*3/uL COMP. METABOLIC PANEL (30429) - Abnormal NA 137 135 - 145 [...] Care Cbc with Diff Comp. Metabolic Panel (08624) MRSA / MSSA Screen by PCR, Nares [...] components within normal limits COMP. METABOLIC PANEL (49462) - Abnormal; Notable for the following components: [...] care AdmissionCare documentation entered by: Aris Hill [facility] [employer], 28th edition, Copyright ? 2023 [facility] [employer] All Rights Reserved. [id number]:23:18-05:00 Medical Decision Making Problems Addressed: Wasp sting, accidental or unintentional, initial encounter: acute illness or injury Amount and/or Complexity of Data Reviewed Labs: ordered. Decision-making details documented in ED Course. Risk Prescription drug management. Parenteral controlled substances. Decision regarding hospitalization. Reassessment:guarded continued swelling of left arm Communication with edi consultant: None. Limitations to patient care and [...] for Stopping: Aris Hill Jr., MD Clinical Software Configuration Analyst [facility] Emergency Department [employer] is used frequently and may produce errors. Promptly contact for obvious discrepancies. Aris Hill MD 06/08/24 0752 [facility] 2024-06-07 16:36:00 Associated Order(s): Critical Care Critical [...] separately billable procedures and treating other patients. [facility] 2024-06-07 16:36:00 AdmissionCare Guideline: Venom Exposure from [...] care AdmissionCare documentation entered by: Aris Hill [facility], 28th edition, Copyright ? 2023 [facility] All Rights Reserved. [id number]:23:18-05:00 [facility]
[2025-01-07] MEDS ORDERED: ONDANSETRON 4 MG/2 ML VIAL ONE (01:24)
[2025-01-07] MEDS ORDERED: NA CHLORIDE 0.9% 1,000 ML ONE (01:24)
[2025-01-07] MEDS ORDERED: DIPHENHYDRAMINE 50 MG/ML VIAL ONE (01:32)
[2025-01-07] MEDS ORDERED: droPERidol 5 MG/2 ML VIAL ONE (01:32)
[2025-01-07] MEDS ORDERED: NA CHLORIDE 0.9% 100 ML ONE (01:33)
[2025-01-07 01:37] LABS: Absolute Basophils 0.1 K/uL (0-0.5); Absolute Eosinophils 0.2 K/uL (0-0.5); Absolute Lymphocytes (CBC) 3.8 K/uL (0.7-4.9); Absolute Monocytes 0.6 K/uL (0.1-1.3); Eosinophils % 1.7 % (0-4.4); Hematocrit 37.3 % (36.0-45.0); Hemoglobin 12.6 g/dL (12.0-15.0); Lymphocytes % 35.7 % (15.3-44.8); MCH 29.9 pg (27.0-35.0); MCHC 33.7 g/dL (32.0-36.0); MCV 88.7 fL (80-100); MPV 7.7 fL (7.6-11.3); Monocytes % 5.5 % (3.3-12.3); Neutrophils % 56.1 % (41.7-73.7); Platelets 329 thou/uL (152-406)
[2025-01-07 01:56] LABS: ALT/SGPT 35 U/L (13-56); AST/SGOT 15 U/L (15-37); Albumin 3.6 g/dL (3.4-5.0); Albumin/Globulin Ratio 1.1 (1.1-1.8); Alkaline Phosphatase 80 U/L (45-117); Anion Gap 10.5 mEq/L (5.0-15.0); BUN Blood Urea Nitrogen 14 mg/dL (7-18); Bicarbonate 30 mEq/L (21-32); Bilirubin Total 0.2 mg/dL (0.2-1.0); Globulin 3.2 g/dL (2.3-3.5); Glomerular Filtration Rate 85 ml/min (=/>90); Glucose Level 105 mg/dL (74-106); Potassium 3.5 mEq/L (3.5-5.1); Protein, Total 6.8 g/dL (6.4-8.2); Sodium Level 142 mEq/L (136-145); Troponin High Sensitivity 5.2 pg/mL (<58.9)
[2025-01-07 02:02] LABS: Bilirubin Direct < 0.2 mg/dL (0-0.2)
[2025-01-07 02:19] LABS: Lipase 28 U/L (13-75)
--- NOTE | 2025-01-07 04:18 | RAD REPORT ---
PROCEDURE: US Abdomen Limited, gallbladder CLINICAL INDICATION: The patient is 39 years old and is Female; gb eval Bed Name: 8 TECHNIQUE: Real-time ultrasound of the gallbladder fossa with image documentation. COMPARISON: No relevant prior studies available. FINDINGS: GALLBLADDER: Reported negative sonographic Johns sign. Anechoic appearance of the gallbladder. No wall thickening. COMMON BILE DUCT: Unremarkable as visualized. No stones. No dilation. Common bile duct measures 0.3 cm in diameter. IMPRESSION: Gallbladder and common bile duct appear unremarkable. Electronically signed by: Santos De La O MD 01/07/2025 04:10 AM CDT RP Due to temporary technical issues with the PACS/[employer]hips[employer] reporting system, reports are being signed by the in-house radiologist without review as a courtesy to ensure prompt reporting the interpreting radiologist is fully responsible for the content of the report. Transcribed Date/Time: 01/07/2025 4:18 AM
[2025-01-07 04:32] LABS: Specific Gravity 1.018 (1.005-1.030)
[2025-01-07 04:33] LABS: Specific Gravity 1.018 (1.005-1.030); Sqamous Epithelial <5 /HPF (None Seen); Urine Bacteria None Seen /HPF (<20); Urine Bilirubin NEGATIVE (Negative); Urine Blood Negative (Negative); Urine Clarity Clear (Clear); Urine Color Colorless (Yellow); Urine Culture Reflex Order NOT NEEDED; Urine Glucose NEGATIVE (Negative); Urine Ketones NEGATIVE (Negative); Urine Micro Reflex YN NO BILL MICROSCOPIC; Urine Nitrite NEGATIVE (Negative); Urine Protein NEGATIVE (Negative); Urine RBC None Seen /HPF (None Seen); Urine Urobilinogen Normal (Normal); Urine WBC <5 /HPF (<5)
--- NOTE | 2025-01-07 06:20 | EDPHYS ---
Physician Documentation [facility] Name: Kelsi Leung Age: 39 yrs Sex: Female : 1985 Arrival Date: 01/07/2025 Time: 00:08 Bed 8 Private MD: ED Physician Andrew Hastings HPI: 01/07 01:38 This 39 yrs old Female presents to ER via Ambulatory with complaints of abd ec2 pain, green, sob, anxiety. 01:38 Patient arrives today for evaluation of multiple complaints. Patient reports that she ec2 has been having right-sided abdominal pain, reports she has been having some occasional shortness of breath. Patient reports that she felt been experiencing some anxiety which she is takes Valium for regularly. Patient reports also some headaches. Some occasional nausea as well. No urinary complaints.. 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 - Infectious Disease History:: Denies. - Social history:: Smoking status: Patient denies any tobacco usage or history of. Patient/guardian denies using alcohol, street drugs. ROS: 01:40 Constitutional: as per hpi ec2 Exam: 01:40 Constitutional: GEN: NAD Head: atraumatic Eyes: EOMI Ears: External ears are ec2 normal. CV: regular rate LUNGS: no respiratory distress ABD: non-distended, minimal tenderness in the right abdomen, not guarding or rigid. SKIN: no evidence of rashes MSK: no evidence of trauma. Psych: Anxious individual Vital Signs: 00:24 BP 133 / 79; Pulse 70; Resp 16; Temp 98.7; Pulse Ox 100% ; Weight 77.11 kg; Height 5 bm8 ft. 3 in. ; Pain 10/10; 01:30 BP 132 / 86; Pulse 73; Resp 18; Pulse Ox 100% ; vc1 02:30 BP 130 / 81; Pulse 82; Resp 26; Pulse Ox 100% ; vc1 03:30 BP 128 / 82; Pulse 96; Resp 25; Pulse Ox 100% ; vc1 04:45 BP 124 / 71; Pulse 67; Resp 18; Temp 98.7; Pulse Ox 99% ; Pain 0/10; vc1 06:39 BP 121 / 71; Pulse 83; Resp 17; Temp 98.7; Pulse Ox 99% ; Pain 0/10; vc1 00:24 Body Mass Index 30.11 (77.11 kg, 160.02 cm) bm8 00:24 Pain Scale: Adult bm8 04:45 Pain Scale: Adult vc1 06:39 Pain Scale: Adult vc1 Duncan Coma Score: 04:45 Eye Response: spontaneous(4). Motor Response: obeys commands(6). Verbal Response: vc1 oriented(5). Total: 15. 06:39 Eye Response: spontaneous(4). Motor Response: obeys commands(6). Verbal Response: vc1 oriented(5). Total: 15. MDM: 01:14 Medical Screening Exam initiated ec2 01:40 Data reviewed: vital signs, nurses notes. ED course: Patient arrives today for ec2 evaluation of a constellation of complaints. Examination yields nontoxic individual who is cooperative with slightly anxious with slight tenderness in the right abdomen. Will obtain lab work, urine studies, ultrasonography. DDx include processes such as anxiety, gallstones, UTI. EKG obtained, independently reviewed and interpreted by me, shows normal sinus rhythm, rate 76, no acute ST segment elevations, intervals are nonactionable.. 02:38 ED course: . ec2 04:19 ED course: Chest x-ray shows possible pneumomediastinum. Patient has been having nausea ec2 and vomiting, will obtain CT scan of the chest and abdomen and pelvis.. 04:19 ED course: Gallbladder ultrasound negative for acute pathology.. ec2 06:18 ED course: CT imaging is negative for any acute process, nonobstructive left ec2 nephrolithiasis noted. On reassessment patient is well-appearing no acute distress. Will discharge home, return precautions given, she did follow-up PCP.. 01/07 01:13 Order name: Basic Metabolic Panel; Complete Time: 02:38 vc1 01/07 01:13 Order name: CBC with Diff; Complete Time: 02:38 vc1 01/07 01:13 Order name: Troponin HS; Complete Time: 02:38 vc1 01/07 01:40 Order name: UAM; Complete Time: 06:19 ec2 01/07 01:40 Order name: Test, Urine; Complete Time: 06:19 ec2 01/07 01:46 Order name: Liver (Hepatic) Function; Complete Time: 02:38 EDMS 01/07 02:13 Order name: Lipase; Complete Time: 02:38 EDMS 01/07 01:13 Order name: XRAY Chest (1 view) vc1 01/07 01:44 Order name: US Abdomen Limited; Complete Time: 04:27 ec2 01/07 03:52 Order name: CT Chest, Abdomen, Pelvis - W/Contrast ec2 01/07 01:13 Order name: EKG; Complete Time: 01:14 vc1 01/07 01:13 Order name: Cardiac monitoring; Complete Time: 01:13 vc1 01/07 01:13 Order name: EKG - Nurse/Tech; Complete Time: 01:13 vc1 01/07 01:13 Order name: IV Saline Lock; Complete Time: 01:30 vc1 01/07 01:13 Order name: Labs collected and sent; Complete Time: 01:30 vc1 01/07 01:13 Order name: O2 Per Protocol; Complete Time: 01:13 vc1 01/07 01:13 Order name: O2 Sat Monitoring; Complete Time: 01:13 vc1 Administered Medications: 01:40 Drug: NS 0.9% IV 1000 ml IV at 1000 ml once; to be given as a bolus over 60 minutes vc1 Route: IV; Rate: 1000 ml; Site: right antecubital; 06:40 Follow up: Response: No adverse reaction; IV Status: Completed infusion vc1 01:40 Drug: Droperidol IVP 1.25 mg IVP once Route: IVP; Site: right antecubital; vc1 06:40 Follow up: Response: No adverse reaction vc1 01:40 Drug: diphenhydrAMINE IVP 25 mg IVP once Route: IVP; Site: right antecubital; vc1 06:40 Follow up: Response: No adverse reaction vc1 Disposition Summary: 01/07/25 06:19 Discharge Ordered Notes: Location: Home ec2 Condition: Stable ec2 Diagnosis - Chest pain, unspecified ec2 - Abdominal pain, Generalized ec2 Followup: ec2 - With: Private Physician - When: - Reason: Re-evaluation by your physician Discharge Instructions: - Discharge Summary Sheet ec2 - Abdominal Pain, Adult ec2 - Nonspecific Chest Pain, Adult, [id number] ec2 Forms: - Work release form ms3 - Medication Reconciliation Form ec2 - Antibiotic Education ec2 - Prescription Opioid Use ec2 - Patient Portal Instructions ec2 - Leadership Thank You Letter ec2 Signatures: Dispatcher [employer] EDMS Delfina Harding, RN RN vc1 Andrew Hastings MD MD ec2 Campbell Govea, RN RN bm8 Corrections: (The following items were deleted from the chart) 01:40 01:40 Urinalysis W/Microscopic+U.LAB.BRZ ordered. EDMS EDMS 01:40 01:40 Test, Urine+UC.LAB.BRZ ordered. EDMS EDMS 01:40 01:40 Constitutional: GEN: NAD Head: atraumatic Eyes: EOMI Ears: External ears are ec2 normal. CV: regular rate LUNGS: no respiratory distress ABD: non-distended, minimal tenderness in the right abdomen, not guarding or rigid. SKIN: no evidence of rashes MSK: no evidence of trauma ec2 01:41 01:41 HEPATIC FUNCTION+C.LAB.BRZ ordered. EDMS EDMS 02:12 01:41 LIPASE+C.LAB.BRZ ordered. EDMS EDMS
--- NOTE | 2025-01-07 06:20 | ER ---
Nurse's Notes [facility] Name: Kelsi Leung Age: 39 yrs Sex: Female : 1985 Arrival Date: 01/07/2025 Time: 00:08 Bed 8 Private MD: Diagnosis: Chest pain, unspecified;Abdominal pain, Generalized Presentation: 01/07 00:24 Chief complaint: Patient states: I have chest tightness, I dont feel good, my right bm8 side hurts. I have a headache and it feels like I am swimming. states that this has been going on for months and we cant figure out whats going on. Coronavirus screen: At this time, the client does not indicate any symptoms associated with coronavirus-19. Ebola Screen: Patient negative for fever greater than or equal to 101.5 degrees Fahrenheit, and additional compatible Ebola Virus Disease symptoms Patient denies exposure to infectious person. Patient denies travel to an Ebola-affected area in the 21 days before illness onset. No symptoms or risks identified at this time. Initial Sepsis Screen: Does the patient meet any 2 criteria? No. Patient's initial sepsis screen is negative. Does the patient have a suspected source of infection? No. Patient's initial sepsis screen is negative. Risk Assessment: Do you want to hurt yourself or someone else? Patient reports no desire to harm self or others. Onset of symptoms is unknown. 00:24 Method Of Arrival: Ambulatory bm8 00:24 Acuity: CAMERON 3 bm8 Triage Assessment: 00:26 General: Appears in no apparent distress. uncomfortable, Behavior is calm, cooperative, bm8 appropriate for age. Pain: Complains of pain in chest and abdomen. EENT: No deficits noted. No signs and/or symptoms were reported regarding the EENT system. Neuro: No deficits noted. Level of Consciousness is awake, alert, obeys commands, Oriented to person, place, time, situation, Appropriate for age Reports headache. Cardiovascular: Reports chest pain, Heart tones S1 S2 present Capillary refill < 3 seconds in bilateral fingers. Respiratory: Airway is patent Respiratory effort is even, unlabored, Respiratory pattern is regular, symmetrical, Breath sounds are clear bilaterally. GI: Reports lower abdominal pain, upper abdominal pain, nausea, right side abd pain. : No signs and/or symptoms were reported regarding the genitourinary system. Derm: No signs and/or symptoms reported regarding the dermatologic system. Musculoskeletal: No signs and/or symptoms reported regarding the musculoskeletal system. 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 - Infectious Disease History:: Denies. - Social history:: Smoking status: Patient denies any tobacco usage or history of. Patient/guardian denies using alcohol, street drugs. Screenin:14 [facility] ED Fall Risk Assessment (Adult) History of falling in the last 3 months, vc1 including since admission No falls in past 3 months (0 pts) Confusion or Disorientation No (0 pts) Intoxicated or Sedated No (0 pts) Impaired Gait No (0 pts) Mobility Assist Device Used No (0 pt) Altered Elimination No (0 pt) Score/Fall Risk Level 0 - 2 = Low Risk Oriented to surroundings, Maintained a safe environment, Educated pt \T\ family on fall prevention, incl call for assistance when getting out of bed, Assessed \T\ reinforced patient's understanding of fall precautions, Hourly rounding (assess needs \T\ fall precautionary measures) done. Abuse screen: Denies threats or abuse. Nutritional screening: No deficits noted. Tuberculosis screening: No symptoms or risk factors identified. Assessment: 00:30 General: Appears in no apparent distress. uncomfortable, ill, well groomed, well vc1 developed, well nourished, Behavior is cooperative, anxious. Pain: Complains of pain in right upper quadrant Pain does not radiate. Pain Pain began off and on for a few months. Neuro: Level of Consciousness is awake, alert, obeys commands, Oriented to person, place, time, situation, Appropriate for age. Cardiovascular: Reports chest pain, lightheadedness, shortness of breath, vomiting, Heart tones S1 S2 Capillary refill < 3 seconds Patient's skin is warm and dry. Rhythm is sinus rhythm. Respiratory: Airway is patent Respiratory effort is even, unlabored, Respiratory pattern is regular, symmetrical, Breath sounds are clear bilaterally. GI: Abdomen is non-distended, Reports upper abdominal pain, nausea, vomiting. : Reports urinary frequency. EENT: No deficits noted. No signs and/or symptoms were reported regarding the EENT system. Derm: Skin is intact, is healthy with good turgor, Skin is dry, Skin is pale, Skin temperature is warm. Musculoskeletal: Circulation, motion, and sensation intact. Range of motion: intact in all extremities. 02:00 Reassessment: Patient and/or family updated on plan of care and expected duration. Pain vc1 level reassessed. Patient is alert, oriented x 3, equal unlabored respirations, skin warm/dry/pink. Patient states feeling better. Patient states symptoms have improved. 03:00 Reassessment: Patient appears in no apparent distress at this time. No changes from vc1 previously documented assessment. Patient and/or family updated on plan of care and expected duration. Pain level reassessed. Patient is alert, oriented x 3, equal unlabored respirations, skin warm/dry/pink. 04:00 Reassessment: Patient appears in no apparent distress at this time. No changes from vc1 previously documented assessment. Patient and/or family updated on plan of care and expected duration. Pain level reassessed. Patient is alert, oriented x 3, equal unlabored respirations, skin warm/dry/pink. 04:45 Reassessment: Patient appears in no apparent distress at this time. Patient and/or vc1 family updated on plan of care and expected duration. Pain level reassessed. Patient is alert, oriented x 3, equal unlabored respirations, skin warm/dry/pink. Patient denies pain at this time. Patient states feeling better. Patient states symptoms have improved. 06:39 Reassessment: Patient appears in no apparent distress at this time. Patient and/or vc1 family updated on plan of care and expected duration. Pain level reassessed. Patient is alert, oriented x 3, equal unlabored respirations, skin warm/dry/pink. Patient denies pain at this time. Patient states feeling better. Patient states symptoms have improved. Vital Signs: 00:24 BP 133 / 79; Pulse 70; Resp 16; Temp 98.7; Pulse Ox 100% ; Weight 77.11 kg; Height 5 bm8 ft. 3 in. ; Pain 10/10; 01:30 BP 132 / 86; Pulse 73; Resp 18; Pulse Ox 100% ; vc1 02:30 BP 130 / 81; Pulse 82; Resp 26; Pulse Ox 100% ; vc1 03:30 BP 128 / 82; Pulse 96; Resp 25; Pulse Ox 100% ; vc1 04:45 BP 124 / 71; Pulse 67; Resp 18; Temp 98.7; Pulse Ox 99% ; Pain 0/10; vc1 06:39 BP 121 / 71; Pulse 83; Resp 17; Temp 98.7; Pulse Ox 99% ; Pain 0/10; vc1 00:24 Body Mass Index 30.11 (77.11 kg, 160.02 cm) bm8 00:24 Pain Scale: Adult bm8 04:45 Pain Scale: Adult vc1 06:39 Pain Scale: Adult vc1 Duncan Coma Score: 04:45 Eye Response: spontaneous(4). Motor Response: obeys commands(6). Verbal Response: vc1 oriented(5). Total: 15. 06:39 Eye Response: spontaneous(4). Motor Response: obeys commands(6). Verbal Response: vc1 oriented(5). Total: 15. ED Course: 00:12 Patient arrived in ED. jj6 00:23 Andrew Hastings MD is Attending Physician. ec2 00:26 Triage completed. bm8 00:26 Arm band placed on right wrist. bm8 00:30 Patient maintains SpO2 saturation greater than 95% on room air. vc1 00:30 Inserted saline lock: 20 gauge in right antecubital area, using aseptic technique. vc1 Blood collected. Flushed with 10 mL NS. 01:12 Delfina Harding, RN is Primary Nurse. vc1 01:14 Patient has correct armband on for positive identification. Bed in low position. Call vc1 light in reach. school lunch monitor on. Pulse ox on. NIBP on. 01:47 XRAY Chest (1 view) In Process Unspecified. EDMS 02:02 US Abdomen Limited In Process Unspecified. EDMS 04:01 Provided Education on: CT. vc1 04:12 CT Chest, Abdomen, Pelvis - W/Contrast In Process Unspecified. EDMS 04:21 [facility] Sent. vc1 06:39 No provider procedures requiring assistance completed. IV discontinued, intact, vc1 bleeding controlled, No redness/swelling at site. Pressure dressing applied. Administered Medications: 01:40 Drug: NS 0.9% IV 1000 ml IV at 1000 ml once; to be given as a bolus over 60 minutes vc1 Route: IV; Rate: 1000 ml; Site: right antecubital; 06:40 Follow up: Response: No adverse reaction; IV Status: Completed infusion vc1 01:40 Drug: Droperidol IVP 1.25 mg IVP once Route: IVP; Site: right antecubital; vc1 06:40 Follow up: Response: No adverse reaction vc1 01:40 Drug: diphenhydrAMINE IVP 25 mg IVP once Route: IVP; Site: right antecubital; vc1 06:40 Follow up: Response: No adverse reaction vc1 Medication: 01:14 VIS not applicable for this client. vc1 Outcome: 06:19 Discharge ordered by . ec2 06:39 Discharged to home ambulatory, with family, vc1 06:39 Condition: stable 06:39 Discharge instructions given to patient, family, Instructed on discharge instructions, follow up and referral plans. Demonstrated understanding of instructions, follow-up care, medications, 06:41 Patient left the ED. vc1 Signatures: Dispatcher [employer] Celestina Dennis [email or web address] Delfina Harding RN RN vc1 Andrew Hastings MD MD ec2 Campbell Govea RN RN bm8
--- NOTE | 2025-01-07 06:26 | RAD REPORT ---
CT CHEST ABDOMEN PELVIS WITH IV CONTRAST CLINICAL INDICATIONS: Pneumomediastinum? COMPARISON: Chest radiograph 01/07/2025. Abdominal ultrasound 01/07/2025. TECHNIQUE: CT images of the chest, abdomen and pelvis were obtained following administration of intra venous contrast. Multiplanar reformats were provided. Dose lowering techniques such as automated exposure control, iterative reconstruction, and mA and/or kV adjustment for patient size was utilized for this examination. CHEST FINDINGS: LOWER NECK: Unremarkable. AIRWAYS: Trachea and mainstem bronchi are patent. LUNGS/PLEURA: Lungs are clear. No focal air space consolidation. No discrete mass or nodules. No pleu ral effusions or pneumothorax. VASCULATURE: No evidence of pulmonary intraluminal filling defects. No evidence of thoracic aortic aneurysm or dissection. MEDIASTINUM/NODES: No pathologic adenopathy. Small right paratracheal calcified lymph node. No pneumo mediastinum. HEART: Normal heart size. No pericardial effusion. CHEST WALL: Unremarkable. BONES: No acute or significant abnormality. ABDOMEN/PELVIS FINDINGS: LIVER: Unremarkable. BILIARY: Unremarkable. PANCREAS: Unremarkable. SPLEEN: Unremarkable. ADRENALS: Unremarkable. KIDNEYS/URETERS: 2 mm nonobstructive stone at lower pole of left kidney. No hydroureteronephrosis. STOMACH: Unremarkable. BOWEL: Unremarkable. APPENDIX: Normal. MESENTERY/PERITONEUM: Unremarkable. RETROPERITONEUM: No adenopathy. URINARY BLADDER: Unremarkable. REPRODUCTIVE: Unremarkable. VASCULAR: Unremarkable. ABDOMINAL/PELVIC WALL: Tiny fat containing umbilical hernia. BONES: No acute or significant abnormality. IMPRESSION: 1. No acute findings in CT chest, abdomen and pelvis. 2. Nonobstructive left nephrolithiasis. Electronically signed by: Savita Verdugo MD 01/07/2025 06:05 AM [facility] Due to temporary technical issues with the PACS/Kon[employer] reporting system, reports are being beatriz d by the in-house radiologist without review as a courtesy to ensure prompt reporting the interpreting radiologist is fully responsible for the content of the report. Transcribed Date/Time: 01/07/2025 6:26 AM
--- NOTE | 2025-01-07 06:37 | RAD REPORT ---
EXAM: XR Chest, 1 View CLINICAL HISTORY: The patient is 39 years old and is Female; Chest pain;Cough;Congestion TECHNIQUE: Frontal view of the chest. COMPARISON: No relevant prior studies available. FINDINGS: Lungs: No consolidation. Pleural space: Unremarkable. No pneumothorax. Heart: Unremarkable. Mediastinum: Slight curvilinear lucency along the right mediastinal border. Bones/joints: No acute findings. IMPRESSION: 1. Slight curvilinear lucency along the right mediastinal border. Correlate with any concern for pneumomediastinum. 2. No consolidation. Electronically signed by: Jag Cleary MD 01/07/2025 03:45 AM CDT RP 8 Due to temporary technical issues with the PACS/[employer]oz[employer] reporting system, reports are being beatriz d by the in-house radiologist without review as a courtesy to ensure prompt reporting the interpreting radiologist is fully responsible for the content of the report. Transcribed Date/Time: 01/07/2025 6:37 AM
[2025-01-07 07:21] VITALS: TEMP 98.7
[2025-01-07 07:25] VITALS: O2SAT 99
[2025-01-07 07:27] VITALS: BP 121/71
--- NOTE | 2025-01-08 12:34 | EKG ---
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
== END 2025-01-07 06:41 | disposition home or self-care (01) ==
LOC: ER 00:08
DX: R07.9 Chest pain, unspecified (principal); R10.84 Generalized abdominal pain; R06.02 Shortness of breath
CPT/HCPCS: 96361; 93005; 85025; 81001; 80048; 36415; 81025; 80076; 84484; 83690; 71260; 74177; 71045; 76705; 96375; 96374; 99285; Q9967; J1200; J1790; J7030; J2405